=== PATIENT | male | born 1945 | race African-American/Black ===

== ENCOUNTER 2017-01-01 07:56 | Inpatient (IN) | payer MEDICARE, OTHER ==
[2017-01-01] MEDS ORDERED: KETOROLAC 60 MG/2 ML VIAL IVP STA (08:33)
--- NOTE | 2017-01-01 08:40 | ED ---
General Adult HPI - General Chief complaint: Weakness Stated complaint: SOB Time Seen by Provider: 01/01/17 08:00 Source: patient, RN notes reviewed Mode of arrival: wheelchair Limitations: no limitations - History of Present Illness Initial comments: This is a 71-year-old male who presents emergency department and is a very poor historian. Patient states he is here because of left buttocks pain which radiates down to the mid thigh. Patient states she's had this for years. Patient states he has not followed up with his primary medical care doctor for this he has not gotten MRI and is never seen a specialist for this. Patient also states he is always short of breath. Patient states this is been ongoing for many months as well. Patient states it's no different today than it is any day but he would like it checked out today while he is here. Patient denies any chest pain or pressure. Patient denies any palpitations. Patient denies any recent fever chills or cough. Patient denies any smoking history. Patient denies any lightheadedness or dizziness per patient denies headache patient denies numbness weakness. Patient denies any abdominal pain. Patient denies nausea vomiting diarrhea. Patient denies any numbness or weakness he denies any problems with urinary retention or urinary incontinence. - Related Data Home Medications Medication Instructions Recorded Confirmed Nitroglycerin Sl Tabs [Nitrostat] 0.4 mg SUBLINGUAL Q5M PRN 11/28/13 01/01/17 HYDROcodone/APAP 5-325MG [[place] 1 tab PO Q6H PRN 12/15/14 01/01/17 5-325] Allopurinol [Zyloprim] 100 mg PO DAILY 01/24/15 01/01/17 Carvedilol 25 mg PO BID 01/24/15 01/01/17 Aspirin 325 mg PO DAILY 06/07/15 01/01/17 Docusate [Colace] 100 mg PO HS 06/07/15 01/01/17 Gabapentin [Neurontin] 400 mg PO TID 05/16/16 01/01/17 Torsemide [Demadex] 50 mg PO DAILY PRN 05/16/16 01/01/17 Insulin Glargine [Lantus] 45 unit SQ QAM 01/01/17 01/01/17 Losartan [Cozaar] 50 mg PO HS 01/01/17 01/01/17 Spironolactone [Aldactone] 25 mg PO DAILY 01/01/17 01/01/17 amLODIPine [Norvasc] 5 mg PO DAILY 01/01/17 01/01/17 Previous Rx's Medication Instructions Recorded Isosorbide Mononitrate ER [Imdur] 30 mg PO DAILY #30 tab.er.24h 06/09/15 Allergies Allergy/AdvReac Type Severity Reaction Status Date / Time No Known Allergies Allergy Verified 01/01/17 08:48 Review of Systems ROS Statement: Those systems with pertinent positive or pertinent negative responses have been documented in the HPI. ROS Other: All systems not noted in ROS Statement are negative. Past Medical History Past Medical History: Chest Pain / Angina, Heart Failure, COPD, Diabetes Mellitus, Hyperlipidemia, Hypertension, Myocardial Infarction ([place]), Osteoarthritis (OA) Additional Past Medical History / Comment(s): 06/07/15 Pt presented to [facility] ER EMS feeling weak and having mild headache and anterior neck pain. Symptoms began days ago. Pt being admitted with clinical impression of weakness, acute renal failure. PT last admitted to [facility] 01/24/15 with acute DKA, acute metabolic encephalitis from DKA, acute renal failure, severe hyperkalemia, pseudohyponatremia. 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 Last Myocardial Infarction Date:: 11/2013 History of Any Multi-Drug Resistant Organisms: None Reported Past Surgical History: Heart Catheterization, Pacemaker Additional Past Surgical History / Comment(s): CATARACTS TRAY EYES REMOVED. liver biopsy on 10-18-13, heart cath 2004 Past Anesthesia/Blood Transfusion Reactions: No Reported Reaction Type of Cardiac Device: Permanent Pacemaker Device Placement Date:: UNK Past Psychological History: Bipolar, Depression Smoking Status: Never smoker Past Alcohol Use History: Occasional Past Drug Use History: None Reported - Past Family History Mother Family Medical History: Cancer Sister(s) Family Medical History: Cancer General Exam - General Exam Comments Initial Comments: GENERAL: Patient is well-developed and well-nourished. Patient is nontoxic and well- hydrated and is in mild distress. ENT: Neck is soft and supple. No significant lymphadenopathy is noted. Oropharynx is clear. Moist mucous membranes. Neck has full range of motion without eliciting any pain. EYES: The sclera were anicteric and conjunctiva were pink and moist. Extraocular movements were intact and pupils were equal round and reactive to light. Eyelids were unremarkable. PULMONARY: Unlabored respirations. Good breath sounds bilaterally. No audible rales rhonchi or wheezing was noted. CARDIOVASCULAR: There is a regular rate and rhythm without any murmurs gallops or rubs. ABDOMEN: Soft and nontender with normal bowel sounds. No palpable organomegaly was noted. There is no palpable pulsatile mass. SKIN: Skin is clear with no lesions or rashes and otherwise unremarkable. NEUROLOGIC: Patient is alert and oriented x3. Cranial nerves II through XII are grossly intact. Motor and sensory are also intact. Normal speech, volume and content. Symmetrical smile. no perineum LYMPHATICS: No significant lymphadenopathy is noted MUSCULOSKELETAL: Normal extremities with adequate strength and full range of motion. No lower extremity swelling or edema. No calf tenderness. Patient has a straight leg teis positive at 60 on the left only. Patient's perineum exam is normal. Patient has some slight tenderness in the left buttocks. Limitations: no limitations Course Vital Signs 01/01/17 01/01/17 01/01/17 08:03 08:45 10:29 Temperature 97.1 F L Pulse Rate 54 L 59 L Respiratory 18 24 20 Rate Blood Pressure 125/73 140/62 O2 Sat by Pulse 98 97 Oximetry Medical Decision Making - Medical Decision Making EKG shows a ventricular paced rhythm at 52 bpm QRS is 142 QT intervals 484 QTC is 450. Chest x-ray shows possible mild venous congestion I went into the room to reevaluate the patient he was sleeping comfortably. I spoke with Dr. Logan he agreed to admit the patient and I wrote admitting orders. - Lab Data Result diagrams: 01/01/17 09:09 01/01/17 09:09 Lab Results 01/01/17 01/01/17 01/01/17 Range/Units 09:09 09:09 09:09 WBC 6.5 (3.8-10.6) k/uL RBC 4.42 (4.30-5.90) m/uL Hgb 13.6 (13.0-17.5) gm/dL Hct 42.0 (39.0-53.0) % MCV 95.1 (80.0-100.0) fL MCH 30.7 (25.0-35.0) pg MCHC 32.3 (31.0-37.0) g/dL RDW 13.5 (11.5-15.5) % Plt Count 93 L (150-450) k/uL Neutrophils % 72 % Lymphocytes % 15 % Monocytes % 6 % Eosinophils % 4 % Basophils % 1 % Neutrophils # 4.7 (1.3-7.7) k/uL Lymphocytes # 1.0 (1.0-4.8) k/uL Monocytes # 0.4 (0-1.0) k/uL Eosinophils # 0.3 (0-0.7) k/uL Basophils # 0.0 (0-0.2) k/uL Large Platelets Present Poikilocytosis (manual Present Anisocytosis (manual) Present PT (9.0-12.0) sec INR (<1.1) APTT (22.0-30.0) sec Sodium 137 (137-145) mmol/L Potassium 4.0 (3.5-5.1) mmol/L Chloride 101 (98-107) mmol/L Carbon Dioxide 27 (22-30) mmol/L Anion Gap 9 mmol/L BUN 70 H (9-20) mg/dL Creatinine 2.20 H (0.66-1.25) mg/dL Est GFR (MDRD) Af Amer 36 (>60 ml/min/1.73 sqM) Est GFR (MDRD) Non-Af 30 (>60 ml/min/1.73 sqM) Glucose 191 H (74-99) mg/dL Calcium 8.0 L (8.4-10.2) mg/dL Magnesium 1.6 (1.6-2.3) mg/dL Total Bilirubin 1.2 (0.2-1.3) mg/dL AST 95 H (17-59) U/L ALT 106 H (21-72) U/L Alkaline Phosphatase 230 H (38-126) U/L Total Creatine Kinase 260 H (55-170) U/L CK-MB (CK-2) 3.8 H* (0.0-2.4) ng/mL CK-MB (CK-2) Rel Index 1.5 Troponin I 0.058 H* (0.000-0.034) ng/mL NT-Pro-B Natriuret Pep pg/mL Total Protein 7.1 (6.3-8.2) g/dL Albumin 2.9 L (3.5-5.0) g/dL 01/01/17 01/01/17 Range/Units 09:09 09:09 WBC (3.8-10.6) k/uL RBC (4.30-5.90) m/uL Hgb (13.0-17.5) gm/dL Hct (39.0-53.0) % MCV (80.0-100.0) fL MCH (25.0-35.0) pg MCHC (31.0-37.0) g/dL RDW (11.5-15.5) % Plt Count (150-450) k/uL Neutrophils % % Lymphocytes % % Monocytes % % Eosinophils % % Basophils % % Neutrophils # (1.3-7.7) k/uL Lymphocytes # (1.0-4.8) k/uL Monocytes # (0-1.0) k/uL Eosinophils # (0-0.7) k/uL Basophils # (0-0.2) k/uL Large Platelets Poikilocytosis (manual Anisocytosis (manual) PT 12.4 H (9.0-12.0) sec INR 1.3 (<1.1) APTT 27.0 (22.0-30.0) sec Sodium (137-145) mmol/L Potassium (3.5-5.1) mmol/L Chloride (98-107) mmol/L Carbon Dioxide (22-30) mmol/L Anion Gap mmol/L BUN (9-20) mg/dL Creatinine (0.66-1.25) mg/dL Est GFR (MDRD) Af Amer (>60 ml/min/1.73 sqM) Est GFR (MDRD) Non-Af (>60 ml/min/1.73 sqM) Glucose (74-99) mg/dL Calcium (8.4-10.2) mg/dL Magnesium (1.6-2.3) mg/dL Total Bilirubin (0.2-1.3) mg/dL AST (17-59) U/L ALT (21-72) U/L Alkaline Phosphatase (38-126) U/L Total Creatine Kinase (55-170) U/L CK-MB (CK-2) (0.0-2.4) ng/mL CK-MB (CK-2) Rel Index Troponin I (0.000-0.034) ng/mL NT-Pro-B Natriuret Pep 352 pg/mL Total Protein (6.3-8.2) g/dL Albumin (3.5-5.0) g/dL Disposition Clinical Impression: Sciatica, Acute renal failure, Dyspnea Disposition: ADMITTED IP TO THIS HOSP Referrals: Antonino Mendoza DO [Primary Care Provider] - 1-2 days Time of Disposition: 10:52
[2017-01-01 09:46] LABS: Magnesium 1.6 mg/dL (1.6-2.3); Total Bilirubin 1.2 mg/dL (0.2-1.3); Total Protein 7.1 g/dL (6.3-8.2)
[2017-01-01 09:47] LABS: INR 1.3 (<1.1); Prothrombin Time 12.4 sec (9.0-12.0)
[2017-01-01 10:01] LABS: Basophils % (A) 1 %; CH 31.1; CHCM 32.9; Eosinophils # (A) 0.3 k/uL (0-0.7); Eosinophils % (A) 4 %; HDW 2.14; HGB 13.6 gm/dL (13.0-17.5); Large Platelets Flag Marked; Luc # (Auto) 0.15; Luc % (Auto) 2; Lymphocytes % (A) 15 %; MCH 30.7 pg (25.0-35.0); MCHC 32.3 g/dL (31.0-37.0); MCV 95.1 fL (80.0-100.0); Mean Platelet Volume 11.9; Monocytes # (A) 0.4 k/uL (0-1.0); Monocytes % (A) 6 %; Neutrophils # (A) 4.7 k/uL (1.3-7.7); Neutrophils % (A) 72 %; RBC 4.42 m/uL (4.30-5.90); RDW 13.5 % (11.5-15.5); WBC 6.5 k/uL (3.8-10.6); WBC (Perox) 6.02
--- NOTE | 2017-01-01 10:10 | XR ---
EXAMINATION TYPE: XR chest 2V DATE OF EXAM: 01/01/2017 COMPARISON: Chest x-ray May 16, 2016 HISTORY: Difficulty in breathing. TECHNIQUE: Frontal and lateral views of the chest are obtained. FINDINGS: There is no focal air space opacity, pleural effusion, or pneumothorax seen. The cardiac silhouette size is enlarged with multilead pacemaker/AICD. There is perhaps mild central vascular con gestion though this is less prominent than prior. The osseous structures are somewhat demineralized. IMPRESSION: Cardiomegaly with perhaps mild central vascular congestion, correlate for CHF exacerbati on though there is improvement from prior chest x-ray noted.
[2017-01-01 10:27] LABS: Creatine Kinase MB 3.8 ng/mL (0.0-2.4); Troponin I 0.058 ng/mL (0.000-0.034)
[2017-01-01 10:39] LABS: Large Platelets Present
[2017-01-01] MEDS ORDERED: SODIUM CHLORIDE 0.9% 1,000 ML IV ONE (10:53)
[2017-01-01] MEDS: SODIUM CHLORIDE 0.9% 1,000 ML IV SCH (11:36)
--- NOTE | 2017-01-01 11:38 | P.NPCON ---
History of Present Illness - Reason for Consult acute renal failure - History of Present Illness Reason for consultation: Acute kidney injury History of present illness: Patient is a 71-year-old male seen in renal consultation for acute kidney injury. His baseline creatinine from March 2016 was near 1. It is elevated at 2.2 this admission. Patient presented to the hospital with buttock pain which is constant and achy in nature with radiation down to his leg. Patient also admits to dyspnea which she states is chronic in nature and not any worse than his baseline. I do note that he was taking Demadex as well as Aldactone at home. He did receive a dose of Toradol in the ER. He admits to good urine output. No hematuria or dysuria. Does admit to incontinence. No vomiting or diarrhea. Oral intake has been fair. Denies chest pain. Denies use of NSAIDs at home. Denies any family history of renal disease. Hemodynamically he stable. Denies any fever or chills. No headache dizziness or syncopal episodes. Vital signs are stable. General: The patient appeared well nourished and normally developed. HEENT: Head exam is unremarkable. Neck is without jugular venous distension. LUNGS: Lungs are clear to auscultation and percussion. Breath sounds decreased. HEART: Rate and Rhythm are regular. First and second heart sounds normal. No murmurs, rubs or gallops. ABDOMEN: Abdominal exam reveals normal bowel sounds. Non-tender and non- distended. No evidence of peritonitis. EXTREMITITES: No clubbing, cyanosis, or edema. Past Medical History Past Medical History: Chest Pain / Angina, Heart Failure, COPD, Diabetes Mellitus, Hyperlipidemia, Hypertension, Myocardial Infarction ([place]), Osteoarthritis (OA) Additional Past Medical History / Comment(s): 06/07/15 Pt presented to [facility] ER EMS feeling weak and having mild headache and anterior neck pain. Symptoms began days ago. Pt being admitted with clinical impression of weakness, acute renal failure. PT last admitted to [facility] 01/24/15 with acute DKA, acute metabolic encephalitis from DKA, acute renal failure, severe hyperkalemia, pseudohyponatremia. 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 Last Myocardial Infarction Date:: 11/2013 History of Any Multi-Drug Resistant Organisms: None Reported Past Surgical History: Heart Catheterization, Pacemaker Additional Past Surgical History / Comment(s): CATARACTS TRAY EYES REMOVED. liver biopsy on 10-18-13, heart cath 2004 Past Anesthesia/Blood Transfusion Reactions: No Reported Reaction Type of Cardiac Device: Permanent Pacemaker Device Placement Date:: UN Past Psychological History: Bipolar, Depression Smoking Status: Never smoker Past Alcohol Use History: Occasional Past Drug Use History: None Reported - Past Family History Mother Family Medical History: Cancer Sister(s) Family Medical History: Cancer Medications and Allergies Home Medications Medication Instructions Recorded Confirmed Type Nitroglycerin Sl Tabs [Nitrostat] 0.4 mg SUBLINGUAL Q5M PRN 11/28/13 01/01/17 History HYDROcodone/APAP 5-325MG [[place] 1 tab PO Q6H PRN 12/15/14 01/01/17 History 5-325] Allopurinol [Zyloprim] 100 mg PO DAILY 01/24/15 01/01/17 History Carvedilol 25 mg PO BID 01/24/15 01/01/17 History Aspirin 325 mg PO DAILY 06/07/15 01/01/17 History Docusate [Colace] 100 mg PO HS 06/07/15 01/01/17 History Gabapentin [Neurontin] 400 mg PO TID 05/16/16 01/01/17 History Torsemide [Demadex] 50 mg PO DAILY PRN 05/16/16 01/01/17 History Insulin Glargine [Lantus] 45 unit SQ QAM 01/01/17 01/01/17 History Losartan [Cozaar] 50 mg PO HS 01/01/17 01/01/17 History Spironolactone [Aldactone] 25 mg PO DAILY 01/01/17 01/01/17 History amLODIPine [Norvasc] 5 mg PO DAILY 01/01/17 01/01/17 History Allergies Allergy/AdvReac Type Severity Reaction Status Date / Time No Known Allergies Allergy Verified 01/01/17 08:48 Physical Exam Vitals: Vital Signs Temp Pulse Resp BP Pulse Ox 01/01/17 10:29 59 L 20 140/62 97 01/01/17 08:45 24 01/01/17 08:03 97.1 F L 54 L 18 125/73 98 Intake and Output 12/31/16 01/01/17 01/01/17 22:59 06:59 14:59 Other: Weight 99.79 kg Patient Weight 01/02/17 06:59 Weight 99.79 kg Results - Lab Results Most recent lab results Calcium 8.0 mg/dL (8.4-10.2) L 01/01/17 09:09 Magnesium 1.6 mg/dL (1.6-2.3) 01/01/17 09:09 01/01/17 09:09 01/01/17 09:09 Assessment and Plan Plan: Saleh: #1. Nonoliguric acute kidney injury mostly prerenal in nature secondary to diuretics and use of ARB. He should also received a dose of Toradol in the ER. Baseline creatinine is near 1 from March 2016 and is up to 2.2 this admission. #2. Buttock pain with radiation down to his leg possibly due to sciatica. Plan: Start normal saline to be run at 60 mL an hour. Avoid nephrotoxic agents and hypotensive episodes. Check urinalysis. Check renal ultrasound. Repeat electrolytes in the morning. Thank you for the consultation. I will continue to follow the patient with you during his hospital stay.
[2017-01-01 12:02] LABS: Appearance,Urine Clear (Clear); Bilirubin,Urine Negative (Negative); Glucose,Urine (UA) Negative (Negative); Ketones,Urine Negative (Negative); Leukocyte Esterase,Urine Negative (Negative); Nitrite,Urine Negative (Negative); Protein,Urine Negative (Negative); Specific Gravity,Urine 1.007 (1.001-1.035); UA Billing (MACRO vs. MICRO) CHEM; Urobilinogen,Urine <2.0 mg/dL (<2.0)
[2017-01-01 12:28] LABS: Glucose,Whole Blood 117 mg/dL (75-99)
--- NOTE | 2017-01-01 15:07 | US ---
EXAMINATION TYPE: US kidneys/renal and bladder DATE OF EXAM: 01/01/2017 COMPARISON: NONE CLINICAL HISTORY: [email or web address]. EXAM MEASUREMENTS: Right Kidney: 11.2 x 5.3 x 5.2 cm Left Kidney: 11.1 x 5.0 x 5.4 cm Right Kidney: No hydronephrosis or masses seen Left Kidney: No hydronephrosis or masses seen Bladder: wnl Ureteral jets are not identified. IMPRESSION: 1. Normal retroperitoneal ultrasound.
[2017-01-01] MEDS ORDERED: HYDROcodone/APAP 5-325MG 1 EACH TAB PO PRN (15:12)
[2017-01-01] MEDS ORDERED: NITROGLYCERIN SL TABS 0.4 MG TAB SUBLINGUAL PRN (15:12)
[2017-01-01] MEDS ORDERED: IPRATROPIUM-ALBUTEROL 3 ML NEB INHALATION PRN (15:14)
[2017-01-01] MEDS ORDERED: MELATONIN 5 MG TABLET PO PRN (15:15)
[2017-01-01] MEDS: IPRATROPIUM-ALBUTEROL 3 ML NEB INHALATION SCH ×2 (15:56→20:03)
[2017-01-01 17:01] LABS: Glucose,Whole Blood 194 mg/dL (75-99)
[2017-01-01] MEDS: CARVEDILOL 12.5 MG TAB PO SCH (17:45)
[2017-01-01] MEDS: GABAPENTIN 400 MG CAP PO SCH ×2 (17:45→21:20)
[2017-01-01] MEDS: INSULIN LISPRO (humaLOG) 300 UNIT/3 ML VIAL SQ SCH ×2 (17:49→21:24)
[2017-01-01 18:54] LABS: Hemoglobin A1C 9.7 % (4.2-6.1)
[2017-01-01 21:02] LABS: Glucose,Whole Blood 245 mg/dL (75-99)
[2017-01-01] MEDS: DOCUSATE 100 MG CAP PO SCH ×2 (21:20→21:23)
[2017-01-02] MEDS: SODIUM CHLORIDE 0.9% 1,000 ML IV SCH ×2 (05:54→21:17)
[2017-01-02 05:59] LABS: Glucose,Whole Blood 148 mg/dL (75-99)
[2017-01-02] MEDS: GABAPENTIN 400 MG CAP PO SCH ×3 (06:41→21:17)
[2017-01-02] MEDS: CARVEDILOL 12.5 MG TAB PO SCH ×2 (06:42→17:18)
[2017-01-02] MEDS: INSULIN LISPRO (humaLOG) 300 UNIT/3 ML VIAL SQ SCH ×4 (06:44→21:18)
[2017-01-02 06:51] LABS: Basophils % (A) 1 %; CH 30.4; Eosinophils # (A) 0.3 k/uL (0-0.7); Eosinophils % (A) 5 %; HCT 38.9 % (39.0-53.0); HDW 2.16; HGB 12.9 gm/dL (13.0-17.5); Large Platelets Flag Moderate; Luc % (Auto) 4; Lymphocytes # (A) 1.6 k/uL (1.0-4.8); Lymphocytes % (A) 32 %; MCH 31.6 pg (25.0-35.0); MCHC 33.1 g/dL (31.0-37.0); MCV 95.5 fL (80.0-100.0); Mean Platelet Volume 11.1; Monocytes # (A) 0.4 k/uL (0-1.0); Monocytes % (A) 8 %; Neutrophils # (A) 2.6 k/uL (1.3-7.7); Neutrophils % (A) 51 %; RBC 4.07 m/uL (4.30-5.90); RDW 13.3 % (11.5-15.5); WBC 5.1 k/uL (3.8-10.6); WBC (Perox) 5.26
[2017-01-02 07:01] LABS: Calcium 8.1 mg/dL (8.4-10.2); Potassium 4.2 mmol/L (3.5-5.1)
[2017-01-02] MEDS: IPRATROPIUM-ALBUTEROL 3 ML NEB INHALATION SCH ×4 (08:38→20:33)
[2017-01-02] MEDS: amLODIPine 5 MG TAB PO SCH (09:10)
[2017-01-02] MEDS: ISOSORBIDE MONONITRATE ER 30 MG TAB.ER.24H PO SCH (09:10)
[2017-01-02] MEDS: INSULIN GLARGINE 100 UNIT/ML 10 ML VIAL SQ SCH (09:10)
[2017-01-02] MEDS: ASPIRIN 325 MG TAB PO SCH (09:10)
--- NOTE | 2017-01-02 10:23 | HP ---
DATE OF ADMISSION: DATE OF SERVICE: 01/01/2017 CHIEF COMPLAINT: Weakness, back pain and as well as renal failure. HISTORY OF PRESENT ILLNESS: This 71-year-old gentleman with a past medical history of multiple medical problems including history of CHF, COPD, diabetes mellitus, hypertension, hyperlipidemia, history of DJD, being followed by Dr. Antonino Mendoza and as well as Dr. Aislinn Burgess in the outpatient setting was admitted with significant weakness. The patient had multiple episodes of diabetic ketoacidosis. The patient also had ejection fraction of 20% with chronic systolic dysfunction, history of gout as well. Currently, the patient is complaining of back pain which radiated to the back, which is also is also aggravated by walking and being relieved by sitting or lying on the bed. The patient was apparently being evaluated previously. There is history of any fever, rigors. No history of headache, loss of consciousness or seizures. PAST MEDICAL HISTORY: History of CHF, history of COPD, diabetes mellitus, hypertension, hyperlipidemia, history of DJD, history of cardiac catheterization, history of pacemaker, history of bipolar, depression. Medications prior to admission include home medications are: 1. Aldactone 25 mg p.o. daily. 2. Cozaar 50 mg q.h.s. 3. Lantus 45 units subcu q.a.m. 4. Norvasc 5 mg p.o. daily. 5. Demadex 50 mg daily p.r.n. 6. Nitrostat 0.4 sublingual p.r.n. 7. Imdur 30 mg daily. 8. [place] 1 tablet 5 mg q.6 p.r.n. 9. Neurontin 400 mg p.o. t.i.d. 10. Colace 100 mg p.o. q.h.s. 11. Coreg 25 mg p.o. b.i.d. 12. Aspirin 325 mg daily. 13. Zyloprim 100 mg p.o. daily. ALLERGIES: None. FAMILY HISTORY: History of cancer in the family. SOCIAL HISTORY: No history of smoking. No history of alcohol intake. REVIEW OF SYSTEMS: ENT: No diminishing hearing or diminished vision. CARDIOVASCULAR SYSTEM: No angina. RESPIRATORY SYSTEM: No cough or hemoptysis. GI: No nausea. : No dysuria. NERVOUS SYSTEM: No numbness or weakness. ALLERGY/IMMUNOLOGY: No history of asthma. MUSCULOSKELETAL: As mentioned earlier. HEMATOLOGY/ONCOLOGY: No history of anemia. ENDOCRINE: ntd. CONSTITUTIONAL: As mentioned earlier. DERMATOLOGY: Negative. RHEUMATOLOGY: Negative. PSYCHIATRY: As mentioned earlier. PHYSICAL EXAMINATION: Patient is alert and oriented x3. Pulse is 54, blood pressure 94/59, respirations 18, temperature 97.3, pulse ox 98% on 2 L. HEENT: Conjunctivae normal. NECK: No jugular venous distention. CARDIOVASCULAR: S1 and S2, muffled. RESPIRATORY: Breath sounds diminished at the bases. Bilateral scattered rhonchi and crackles. ABDOMEN: Soft, obese, nontender. No mass palpable. LEGS: No edema, no swelling. NERVOUS SYSTEM: Higher function as mentioned. Moves all 4 limbs. No focal motor or sensory deficits. LYMPHATICS: No lymphadenopathy of neck, axillae or groin. EXAMINATION OF THE BACK: tenderness appreciated. LABS: WBC 6.5, hemoglobin 13. 6, platelets 93. INR 1.3. Creatinine is 2.20. Hemoglobin A1c 9.7, AST is 95, ALT is 106, alk phos 230. CK MB 3.8 and troponin 0.058. Albumin is 2.9. ASSESSMENT: 1. Acute renal failure with some prerenal factors and dehydration, acute tubular necrosis. 2. Back pain, possible degenerative joint disease. 3. Elevated AST, ALT, possible acute hepatitis, rule out chronic liver disease. 4. Hypoalbuminemia with mild to moderate chronic protein calorie malnutrition. 5. Increased random blood sugar and diabetes mellitus type 2 uncontrolled. 6. Thrombocytopenia, chronic. 7. History of renal failure. 8. History of gout. 9. History of congestive heart failure with chronic systolic dysfunction with ejection fraction 20% to 25%. 10. History of hypertension. 11. History of diabetic ketoacidosis. 12. History of metabolic encephalopathy. 13. History of hepatitis C. 14. History of peripheral neuropathy. 15. History of pacemaker. 16. FULL CODE. RECOMMENDATIONS AND DISCUSSION: This 71-year-old gentleman who presented with multiple complex medical issues, we will monitor the patient closely. Continue the current medications. Gentle hydration. Patient with multiple complex medical issues as mentioned earlier. The patient also possibly has chronic liver disease as well with some acute component. I will follow the patient closely. Recommend also CAT scan of the abdomen and pelvis to rule out the possibility of any pelvic pathology as the reason for the severe back pain the patient is complaining of, which is severe debilitating back pain the patient is complaining. Prognosis guarded. Further recommendations to follow. See orders for further details. MTDD
[2017-01-02 10:34] VITALS: BMI 33.5
[2017-01-02 12:27] LABS: Glucose,Whole Blood 422 mg/dL (75-99)
[2017-01-02 12:27] LABS: Glucose,Whole Blood 482 mg/dL (75-99)
--- NOTE | 2017-01-02 12:37 | P.PN ---
Subjective She does seen in follow-up for acute kidney injury. His baseline creatinine from March 2016 was 1 and elevated at 2.200 admission. He is maintained on IV fluids and creatinine is down to 1.8 today. Diuretics are held. His dyspnea is at baseline. No vomiting or diarrhea. Currently having lunch. No issues with urination. Vital signs are stable. General: The patient appeared well nourished and normally developed. HEENT: Head exam is unremarkable. Neck is without jugular venous distension. LUNGS: Lungs are clear to auscultation and percussion. Breath sounds decreased. HEART: Rate and Rhythm are regular. First and second heart sounds normal. No murmurs, rubs or gallops. ABDOMEN: Abdominal exam reveals normal bowel sounds. Non-tender and non- distended. No evidence of peritonitis. EXTREMITITES: No clubbing, cyanosis, or edema. Objective - Vital Signs Vital signs: Vital Signs Temp 97.1 F L 01/02/17 08:00 Pulse 72 01/02/17 12:18 Resp 18 01/02/17 11:24 BP 133/77 01/02/17 08:00 Pulse Ox 100 01/02/17 08:00 Intake & Output 01/01/17 01/02/17 01/02/17 18:59 06:59 18:59 Intake Total 360 500 Balance 360 500 Weight 98.4 kg 97.2 kg 97.2 kg Intake: Intake, IV Titration 500 Amount Sodium Chloride 0.9% 1, 500 000 ml @ 60 mls/hr IV . [id number] [facility] Rx#:[id number] Oral 360 Other: Voiding Method Toilet Urinal # Voids 1 # Bowel Movements 1 - Labs CBC & Chem 7: 01/02/17 05:53 01/02/17 05:53 Labs: Abnormal Lab Results - Last 24 Hours (Table) 01/01/17 01/01/17 01/01/17 Range/Units 09:09 16:55 21:01 RBC (4.30-5.90) m/uL Hgb (13.0-17.5) gm/dL Hct (39.0-53.0) % Plt Count (150-450) k/uL Sodium (137-145) mmol/L BUN (9-20) mg/dL Creatinine (0.66-1.25) mg/dL Glucose (74-99) mg/dL POC Glucose (mg/dL) 194 H 245 H (75-99) mg/dL Hemoglobin A1c 9.7 H (4.2-6.1) % Calcium (8.4-10.2) mg/dL 01/02/17 01/02/17 01/02/17 Range/Units 05:53 05:53 05:58 RBC 4.07 L (4.30-5.90) m/uL Hgb 12.9 L (13.0-17.5) gm/dL Hct 38.9 L (39.0-53.0) % Plt Count 82 L (150-450) k/uL Sodium 134 L (137-145) mmol/L BUN 69 H (9-20) mg/dL Creatinine 1.83 H (0.66-1.25) mg/dL Glucose 149 H (74-99) mg/dL POC Glucose (mg/dL) 148 H (75-99) mg/dL Hemoglobin A1c (4.2-6.1) % Calcium 8.1 L (8.4-10.2) mg/dL 01/02/17 01/02/17 Range/Units 11:36 11:38 RBC (4.30-5.90) m/uL Hgb (13.0-17.5) gm/dL Hct (39.0-53.0) % Plt Count (150-450) k/uL Sodium (137-145) mmol/L BUN (9-20) mg/dL Creatinine (0.66-1.25) mg/dL Glucose (74-99) mg/dL POC Glucose (mg/dL) 422 H 482 H (75-99) mg/dL Hemoglobin A1c (4.2-6.1) % Calcium (8.4-10.2) mg/dL Assessment and Plan Plan: Saleh: #1. Nonoliguric acute kidney injury mostly prerenal in nature secondary to diuretics and use of ARB. He also received a dose of Toradol in the ER. Baseline creatinine is near 1 from March 2016 and was up to 2.2 this admission. Improving with IV hydration. Down to 1.8 today. Calluses noted to be benign. No evidence of hydronephrosis on renal ultrasound. #2. Buttock pain with radiation down to his leg possibly due to sciatica. CT scan pending. Plan: Continue normal saline to be run at 60 mL an hour. Encourage oral intake. Avoid nephrotoxic agents and hypotensive episodes. Repeat electrolytes in the morning.
[2017-01-02 12:49] LABS: Total Bilirubin 1.2 mg/dL (0.2-1.3); Total Protein 6.4 g/dL (6.3-8.2)
[2017-01-02] MEDS: ALLOPURINOL 100 MG TAB PO SCH (13:12)
[2017-01-02] MEDS: IOHEXOL 350 MG/ML 25 ML BOTTLE (ORAL USE) PO PRN ×2 (13:12→14:24)
--- NOTE | 2017-01-02 15:55 | CT ---
EXAMINATION TYPE: CT abdomen pelvis wo con DATE OF EXAM: 01/02/2017 COMPARISON: 12/26/2014 INDICATION: Pelvic pain. DLP: 1061 mGycm, Automated exposure control for dose reduction was used. CONTRAST: mL of . Study performed with Oral Contrast TECHNIQUE: Axial images were obtained from above the diaphragm to the pubic rami in the axial plane a t 5 mm thick sections. Reconstructed images are reviewed on the computer in the coronal plane. FINDINGS: Limited CT sections are obtained the lung bases. The lung bases are clear. Minimal reflux or residu al within the esophagus may be present. CT ABDOMEN: Liver: Normal Spleen: Normal Pancreas: Normal Adrenal glands: The adrenal glands are normal. Gallbladder: Normal Kidneys: No masses are evident. No hydronephrosis is present. No cysts are present. Delayed images were obtained through the kidneys, which remain unremarkable. Aorta: Normal Inferior vena cava: Normal. CT PELVIS: Loops of bowel within the abdomen and pelvis are normal. There are loops of bowel which are incom pletely distended or lack oral contrast limiting their evaluation. Appendix: Normal as visualized. Urinary bladder: Decompressed with limited evaluation. Genitourinary structures: Prostate appears normal Osseous structures: No suspicious lytic or sclerotic lesions. Facet degenerative changes are present. IMPRESSIONS: 1. No suspicious acute changes abdomen and pelvis CT
[2017-01-02 17:32] LABS: Glucose,Whole Blood 168 mg/dL (75-99)
[2017-01-02 21:14] LABS: Glucose,Whole Blood 175 mg/dL (75-99)
[2017-01-02] MEDS: DOCUSATE 100 MG CAP PO SCH (21:17)
[2017-01-03] MEDS: IPRATROPIUM-ALBUTEROL 3 ML NEB INHALATION SCH ×2 (07:04→11:26)
[2017-01-03 07:25] LABS: Glucose,Whole Blood 116 mg/dL (75-99)
[2017-01-03] MEDS: INSULIN LISPRO (humaLOG) 300 UNIT/3 ML VIAL SQ SCH ×2 (07:46→12:22)
[2017-01-03] MEDS: CARVEDILOL 12.5 MG TAB PO SCH (08:15)
[2017-01-03 09:25] LABS: Basophils % (A) 0 %; CH 30.2; CHCM 32.4; Eosinophils # (A) 0.3 k/uL (0-0.7); Eosinophils % (A) 6 %; HCT 36.9 % (39.0-53.0); HDW 2.25; HGB 12.7 gm/dL (13.0-17.5); Large Platelets Flag Slight; Luc # (Auto) 0.15; Luc % (Auto) 3; Lymphocytes # (A) 1.3 k/uL (1.0-4.8); Lymphocytes % (A) 29 %; MCH 32.1 pg (25.0-35.0); MCHC 34.3 g/dL (31.0-37.0); MCV 93.6 fL (80.0-100.0); Monocytes # (A) 0.4 k/uL (0-1.0); Monocytes % (A) 8 %; Neutrophils # (A) 2.5 k/uL (1.3-7.7); Neutrophils % (A) 54 %; RBC 3.94 m/uL (4.30-5.90); RDW 13.4 % (11.5-15.5); WBC 4.6 k/uL (3.8-10.6); WBC (Perox) 5.15
--- NOTE | 2017-01-03 09:27 | PN ---
DATE OF SERVICE: 01/02/2017 This 71-year-old gentleman who was admitted with back pain and acute renal failure with prerenal factors, dehydration, acute tubular necrosis, is being closely monitored. The patient also had an abdominal pelvic CAT scan did not show acute abnormalities. Patient also had elevated LFTs. PAST MEDICAL HISTORY: Reviewed. REVIEW OF SYSTEMS: CARDIOVASCULAR: No angina. RESPIRATORY: As mentioned earlier. GI: As mentioned earlier. : No dysuria. NERVOUS SYSTEM: No numbness or weakness. Current medications are reviewed and include: 1. Dike 5 mg p.o. q.6. 2. DuoNeb q.i.d. and p.r.n. 3. Zyloprim 100 mg daily. 4. Norvasc 5 mg daily. 5. Aspirin 325 mg daily. 6. Coreg 25 mg p.o. b.i.d. 7. Colace 100 mg p.o. q.h.s. 8. Neurontin. 9. Lantus. 10. Omnipaque. 11. Imdur. 12. Melatonin. 13. Nitrostat. PHYSICAL EXAMINATION: The patient is alert and oriented x3. Pulse is 58, blood pressure 112/61, respirations 14, temperature 97.1, pulse ox 100% on 2 L. HEENT: Conjunctivae normal. NECK: No jugular venous distention. CARDIOVASCULAR: S1 and S2, muffled. RESPIRATORY: Breath sounds diminished at the bases. A few scattered rhonchi, no crackles. ABDOMEN: Soft, obese, nontender. LEGS: No edema, no swelling. NERVOUS SYSTEM: No focal deficits. LABS: Creatinine 1.83. Creatinine is improved. AST is 65 and ALT 78, which is also improving. ASSESSMENT: 1. Acute renal failure with some prerenal factors and dehydration with acute tubular necrosis. 2. Back pain, possible degenerative joint disease. 3. Hepatitis secondary to chronic hepatitis C. 4. Elevated AST, ALT and acute hepatitis, rule out chronic liver disease. 5. Hypoalbuminemia with mild to moderate protein calorie malnutrition. 6. Increased random blood sugar and diabetes mellitus type 2, uncontrolled. 7. Thrombocytopenia, chronic. 8. History of renal failure. 9. History of gout. 10. History of congestive heart failure with chronic systolic dysfunction, ejection fraction 20% to 25%. 11. History of hypertension, essential. 12. History of diabetic ketoacidosis. 13. History of metabolic encephalopathy. 14. History of hepatitis C. 15. History of peripheral neuropathy. 16. History of pacemaker. 17. FULL CODE. RECOMMENDATIONS AND DISCUSSION: In this 71-year-old gentleman who presented with multiple complex medical issues, we will monitor the patient closely. Continue the current medications. Continue symptomatic treatment. Otherwise, at this time I recommend repeat labs. Monitor creatinine closely. Prognosis guarded because of multiple complex medical issues and further recommendations to follow. See orders for details.
[2017-01-03] MEDS: INSULIN GLARGINE 100 UNIT/ML 10 ML VIAL SQ SCH ×3 (09:45→12:22)
[2017-01-03] MEDS: ASPIRIN 325 MG TAB PO SCH (10:35)
[2017-01-03] MEDS: GABAPENTIN 400 MG CAP PO SCH ×2 (10:35→15:50)
[2017-01-03] MEDS: amLODIPine 5 MG TAB PO SCH (10:35)
[2017-01-03] MEDS: ALLOPURINOL 100 MG TAB PO SCH (10:35)
[2017-01-03] MEDS: ISOSORBIDE MONONITRATE ER 30 MG TAB.ER.24H PO SCH (10:36)
[2017-01-03 10:47] LABS: Calcium 9.1 mg/dL (8.4-10.2); Potassium 5.2 mmol/L (3.5-5.1); Total Protein 6.5 g/dL (6.3-8.2)
[2017-01-03 11:44] LABS: Glucose,Whole Blood 235 mg/dL (75-99)
--- NOTE | 2017-01-03 12:32 | XR ---
EXAMINATION TYPE: XR chest 1V portable DATE OF EXAM: 01/03/2017 COMPARISON: 01/01/2017 HISTORY: Shortness of breath TECHNIQUE: Single frontal view of the chest is obtained. FINDINGS: Hyperinflation noted. There is mild cardiomegaly and cardiac device. Subsegmental changes at the left lung base. Correlate for COPD IMPRESSION: 1. Technically Limited exam demonstrates bibasilar subsegmental elevations. Correlate for atelectasis versus early infiltrate. 2. Correlate for COPD and cardiomegaly.
[2017-01-03 15:26] VITALS: BP 123/63; PULSE 56; RESP 20; TEMP 97
[2017-01-03] MEDS: SODIUM CHLORIDE 0.9% 1,000 ML IV SCH (15:49)
--- NOTE | 2017-01-04 13:11 | DS ---
DATE OF ADMISSION: 01/02/2017 DATE OF DISCHARGE: 01/03/2017 FINAL DIAGNOSES: 1. Acute renal failure with prerenal factors with dehydration with acute tubular necrosis. 2. Back pain, possible degenerative joint disease. 3. Hepatitis secondary to chronic hepatitis C. 4. Elevated AST, ALT from chronic hepatitis C. 5. Hypoalbuminemia with mild to moderate protein calorie malnutrition. 6. Increased random blood sugar, diabetes mellitus type 2 uncontrolled. 7. Thrombocytopenia, chronic. 8. History of renal failure. 9. History of gout. 10. History of congestive heart failure with chronic systolic dysfunction, ejection fraction 25%. 11. History of hypertension, essential. 12. History of diabetic ketoacidosis. 13. Metabolic encephalopathy. 14. History of hepatitis C. 15. History of peripheral neuropathy. 16. History of pacemaker. 17. FULL CODE. DISCHARGE DISPOSITION: The patient will be discharged in stable condition with guarded prognosis. Total time taken is 35 minutes. HISTORY OF PRESENT ILLNESS: This 71-year-old gentleman with a past history medical history of multiple medical problems admitted with back pain and multiple other medical problems. Otherwise, the patient was treated symptomatically. CT scan of the abdomen was negative. The patient seen by nephrology. The chest x-ray had significant improvement. The creatinine did improve to 1.5 at this time and from the admission value of 2.2. On exam, vitals stable. CARDIOVASCULAR SYSTEM: S1, S2. ABDOMEN: Soft. NERVOUS SYSTEM: No focal deficits. DISCHARGE ADVICE: 1. Diet id cardiac. 2. Activity is limited until follow up. 3. Follow up with Dr. Mendoza in 2 to 3 days. 4. Follow with Dr. Dumont as advised. Medications will be as recommended: 1. Zyloprim 100 mg p.o. daily. 2. Norvasc 5 mg p.o. daily. 3. Aspirin 325 mg daily. 4. Coreg 25 mg p.o. b.i.d. 5. Colace 100 mg q.h.s. 6. Neurontin 400 mg t.i.d. 7. Hydrocodone 5 mg q.6. 8. Lantus 45 units subcu in the morning. 9. Imdur ER 30 mg p.o. daily. 10. Nitrostat 0.4 sublingual p.r.n. Once again, the patient is discharged in stable condition with guarded prognosis.
== END 2017-01-03 16:16 | disposition home health service (06) | DRG 682 ==
LOC: EC 07:56 → 6SEL 10:53 → INTOOBSV 10:53 → 6SEL 20:01 → OBSVTOIN 01-02 14:21 → 4MS4W 01-02 17:05
PROVIDERS: ADMIT Hospitalist; ATTEND Hospitalist
DX: N17.0 Acute kidney failure with tubular necrosis (principal); G93.41 Metabolic encephalopathy; E44.0 Moderate protein-calorie malnutrition; I50.22 Chronic systolic (congestive) heart failure; R06.00 Dyspnea, unspecified; I11.0 Hypertensive heart disease with heart failure; E11.65 Type 2 diabetes mellitus with hyperglycemia; D69.6 Thrombocytopenia, unspecified; E11.42 Type 2 diabetes mellitus with diabetic polyneuropathy; J44.9 Chronic obstructive pulmonary disease, unspecified; B18.2 Chronic viral hepatitis C; E86.0 Dehydration; E78.5 Hyperlipidemia, unspecified; I25.2 Old myocardial infarction; M10.9 Gout, unspecified; M54.30 Sciatica, unspecified side; R32 Unspecified urinary incontinence; F32.9 Major depressive disorder, single episode, unspecified; M19.90 Unspecified osteoarthritis, unspecified site; M51.36 Other intervertebral disc degeneration, lumbar region; R01.1 Cardiac murmur, unspecified; Z79.4 Long term (current) use of insulin; Z79.82 Long term (current) use of aspirin; Z79.899 Other long term (current) drug therapy; Z95.0 Presence of cardiac pacemaker; Z68.33 Body mass index [BMI] 33.0-33.9, adult
CPT/HCPCS: 36415; 71010; 71020; 74176; 76770; 80053; 81003; 82550; 82553; 83036; 83735; 83880; 84484; 85025; 85610; 85730; 93005; 94640; 96374; 99285

== ENCOUNTER 2017-09-13 05:28 | Inpatient (IN) | payer MEDICARE, OTHER ==
--- NOTE | 2017-09-13 05:43 | ED ---
Abdominal Pain HPI - General Source: family, EMS, RN notes reviewed Mode of arrival: EMS Limitations: no limitations <Walker Leos - Last Filed: 09/13/17 06:54> <Walker Henry - Last Filed: 09/13/17 09:33> - General Chief Complaint: Abdominal Pain Stated Complaint: Chest Pain Time Seen by Provider: 09/13/17 05:30 - History of Present Illness Initial Comments: This is a 72-year-old male with past medical history significant for kidney failure diabetes hypertension high cholesterol and high cholesterol. Patient states about 5 hours ago started having mid abdominal pain. Patient states it is been constant since then. Patient denies any nausea vomiting or diarrhea. Patient denies any fever chills. Patient states his abdomen is not distended is normally is but easily is currently. Patient denies any chest pain difficulty breathing or shortness of breath. Patient denies any recent fever chills or cough. Patient denies any palpitations. Patient denies any headache patient denies numbness weakness. Patient denies any injury or trauma recently. Patient denies any lightheadedness dizziness or near syncopal episode. (Walker Leos) - Related Data Home Medications Medication Instructions Recorded Confirmed Nitroglycerin Sl Tabs [Nitrostat] 0.4 mg SUBLINGUAL Q5M PRN 11/28/13 09/13/17 HYDROcodone/APAP 5-325MG [[place] 1 tab PO Q6H PRN 12/15/14 09/13/17 5-325] Allopurinol [Zyloprim] 100 mg PO DAILY 01/24/15 09/13/17 Carvedilol 25 mg PO BID 01/24/15 09/13/17 Aspirin 325 mg PO DAILY 06/07/15 09/13/17 Docusate [Colace] 100 mg PO HS 06/07/15 09/13/17 Gabapentin [Neurontin] 400 mg PO TID 05/16/16 09/13/17 Insulin Glargine [Lantus] 45 unit SQ QAM 01/01/17 09/13/17 amLODIPine [Norvasc] 5 mg PO DAILY 01/01/17 09/13/17 Previous Rx's Medication Instructions Recorded Isosorbide Mononitrate ER [Imdur] 30 mg PO DAILY #30 tab.er.24h 06/09/15 Allergies Allergy/AdvReac Type Severity Reaction Status Date / Time No Known Allergies Allergy Verified 09/13/17 05:36 Review of Systems ROS Other: All systems not noted in ROS Statement are negative. <Walker Leos - Last Filed: 09/13/17 06:54> ROS Other: All systems not noted in ROS Statement are negative. <Walker Henry - Last Filed: 09/13/17 09:33> ROS Statement: Those systems with pertinent positive or pertinent negative responses have been documented in the HPI. Past Medical History Past Medical History: Chest Pain / Angina, Heart Failure, COPD, Diabetes Mellitus, Hyperlipidemia, Hypertension, Myocardial Infarction ([place]), Osteoarthritis (OA) Additional Past Medical History / Comment(s): 06/07/15 Pt presented to [facility] ER EMS feeling weak and having mild headache and anterior neck pain. Symptoms began days ago. Pt being admitted with clinical impression of weakness, acute renal failure. PT last admitted to [facility] 01/24/15 with acute DKA, acute metabolic encephalitis from DKA, acute renal failure, severe hyperkalemia, pseudohyponatremia. 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 Last Myocardial Infarction Date:: 11/2013 History of Any Multi-Drug Resistant Organisms: None Reported Past Surgical History: Heart Catheterization, Pacemaker Additional Past Surgical History / Comment(s): CATARACTS TRAY EYES REMOVED. liver biopsy on 10-18-13, heart cath 2004 Past Anesthesia/Blood Transfusion Reactions: No Reported Reaction Type of Cardiac Device: Permanent Pacemaker Device Placement Date:: UNK Past Psychological History: Bipolar, Depression Smoking Status: Never smoker Past Alcohol Use History: Occasional Past Drug Use History: None Reported - Past Family History Mother Family Medical History: Cancer Sister(s) Family Medical History: Cancer <Walker Leos - Last Filed: 09/13/17 06:54> General Exam Limitations: no limitations <Walker Leos - Last Filed: 09/13/17 06:54> <Walker Henry - Last Filed: 09/13/17 09:33> - General Exam Comments Initial Comments: GENERAL: Patient is well-developed and well-nourished. Patient is nontoxic and well- hydrated and is in mild distress. ENT: Neck is soft and supple. No significant lymphadenopathy is noted. Oropharynx is clear. Moist mucous membranes. Neck has full range of motion without eliciting any pain. EYES: The sclera were anicteric and conjunctiva were pink and moist. Extraocular movements were intact and pupils were equal round and reactive to light. Eyelids were unremarkable. PULMONARY: Unlabored respirations. Good breath sounds bilaterally. No audible rales rhonchi or wheezing was noted. CARDIOVASCULAR: There is a regular rate and rhythm without any murmurs gallops or rubs. ABDOMEN: Soft and nontender with normal bowel sounds. No palpable organomegaly was noted. There is no palpable pulsatile mass. SKIN: Skin is clear with no lesions or rashes and otherwise unremarkable. NEUROLOGIC: Patient is alert and oriented x3. Cranial nerves II through XII are grossly intact. Motor and sensory are also intact. Normal speech, volume and content. Symmetrical smile. MUSCULOSKELETAL: Normal extremities with adequate strength and full range of motion. LYMPHATICS: No significant lymphadenopathy is noted PSYCHIATRIC: Normal psychiatric evaluation. Normal interpersonal interactions appears functionally intact in deals appropriately with others. (Walker Leos) Vital Signs 09/13/17 09/13/17 09/13/17 05:33 07:49 09:20 Temperature 97.9 F Pulse Rate 57 L 68 75 Respiratory 20 18 18 Rate Blood Pressure 212/98 214/103 207/90 O2 Sat by Pulse 99 97 94 L Oximetry Medical Decision Making - Lab Data Result diagrams: 09/13/17 06:23 <Walker Leos - Last Filed: 09/13/17 06:54> - Lab Data Result diagrams: 09/13/17 06:23 09/13/17 06:23 - Radiology Data Radiology results: report reviewed (CT abdomen and pelvis positive for appendicitis, ultrasound gallbladder pending), image reviewed <Walker Henry - Last Filed: 09/13/17 09:33> - Medical Decision Making EKG shows a ventricular paced rhythm at 50 bpm NH interval is 132 QRS is 132 QT interval [address] Henry will be taking over the care of this patient at 7 AM (Walker Leos) 72 male the ER for evaluation of bowel pain. Patient's positive for appendicitis, positive for pancreatitis. Patient be admitted for surgical evaluation and treatment (Walker Henry) - Lab Data Lab Results 09/13/17 09/13/17 09/13/17 Range/Units 06:23 06:23 06:23 WBC 5.4 (3.8-10.6) k/uL RBC 4.74 (4.30-5.90) m/uL Hgb 14.1 (13.0-17.5) gm/dL Hct 44.1 (39.0-53.0) % MCV 93.0 (80.0-100.0) fL MCH 29.8 (25.0-35.0) pg MCHC 32.1 (31.0-37.0) g/dL RDW 13.0 (11.5-15.5) % Plt Count 114 L (150-450) k/uL Neutrophils % 68 % Lymphocytes % 20 % Monocytes % 4 % Eosinophils % 7 % Basophils % 1 % Neutrophils # 3.6 (1.3-7.7) k/uL Lymphocytes # 1.1 (1.0-4.8) k/uL Monocytes # 0.2 (0-1.0) k/uL Eosinophils # 0.4 (0-0.7) k/uL Basophils # 0.0 (0-0.2) k/uL Manual Slide Review Performed Large Platelets Present Sodium 138 (137-145) mmol/L Potassium 4.6 (3.5-5.1) mmol/L Chloride 102 (98-107) mmol/L Carbon Dioxide 28 (22-30) mmol/L Anion Gap 8 mmol/L BUN 23 H (9-20) mg/dL Creatinine 0.87 (0.66-1.25) mg/dL Est GFR (MDRD) Af Amer >60 (>60 ml/min/1.73 sqM) Est GFR (MDRD) Non-Af >60 (>60 ml/min/1.73 sqM) Glucose 227 H (74-99) mg/dL Plasma Lactic Acid Fermin (0.7-2.0) mmol/L Calcium 9.3 (8.4-10.2) mg/dL Total Bilirubin 2.1 H (0.2-1.3) mg/dL AST 69 H (17-59) U/L ALT 44 (21-72) U/L Alkaline Phosphatase 386 H (38-126) U/L Total Creatine Kinase 121 (55-170) U/L CK-MB (CK-2) 2.9 H* (0.0-2.4) ng/mL CK-MB (CK-2) Rel Index 2.4 Troponin I 0.024 (0.000-0.034) ng/mL Total Protein 7.9 (6.3-8.2) g/dL Albumin 3.9 (3.5-5.0) g/dL Amylase 305 H* (30-110) U/L Lipase 4990 H (23-300) U/L 09/13/17 Range/Units 07:37 WBC (3.8-10.6) k/uL RBC (4.30-5.90) m/uL Hgb (13.0-17.5) gm/dL Hct (39.0-53.0) % MCV (80.0-100.0) fL MCH (25.0-35.0) pg MCHC (31.0-37.0) g/dL RDW (11.5-15.5) % Plt Count (150-450) k/uL Neutrophils % % Lymphocytes % % Monocytes % % Eosinophils % % Basophils % % Neutrophils # (1.3-7.7) k/uL Lymphocytes # (1.0-4.8) k/uL Monocytes # (0-1.0) k/uL Eosinophils # (0-0.7) k/uL Basophils # (0-0.2) k/uL Manual Slide Review Large Platelets Sodium (137-145) mmol/L Potassium (3.5-5.1) mmol/L Chloride (98-107) mmol/L Carbon Dioxide (22-30) mmol/L Anion Gap mmol/L BUN (9-20) mg/dL Creatinine (0.66-1.25) mg/dL Est GFR (MDRD) Af Amer (>60 ml/min/1.73 sqM) Est GFR (MDRD) Non-Af (>60 ml/min/1.73 sqM) Glucose (74-99) mg/dL Plasma Lactic Acid Fermin 1.4 (0.7-2.0) mmol/L Calcium (8.4-10.2) mg/dL Total Bilirubin (0.2-1.3) mg/dL AST (17-59) U/L ALT (21-72) U/L Alkaline Phosphatase (38-126) U/L Total Creatine Kinase (55-170) U/L CK-MB (CK-2) (0.0-2.4) ng/mL CK-MB (CK-2) Rel Index Troponin I (0.000-0.034) ng/mL Total Protein (6.3-8.2) g/dL Albumin (3.5-5.0) g/dL Amylase (30-110) U/L Lipase (23-300) U/L Disposition <Walker Leos - Last Filed: 09/13/17 06:54> <Walker Henry - Last Filed: 09/13/17 09:33> Clinical Impression: Pancreatitis, Acute appendicitis Disposition: ADMITTED IP TO THIS HOSP Condition: Fair Referrals: Jimi Hubbard DO [Primary Care Provider] - 1-2 days
[2017-09-13 06:42] LABS: Basophils % (A) 1 %; Eosinophils # (A) 0.4 k/uL (0-0.7); Eosinophils % (A) 7 %; HCT 44.1 % (39.0-53.0); HGB 14.1 gm/dL (13.0-17.5); Lymphocytes # (A) 1.1 k/uL (1.0-4.8); Lymphocytes % (A) 20 %; MCH 29.8 pg (25.0-35.0); MCHC 32.1 g/dL (31.0-37.0); Mean Platelet Volume 10.9; Monocytes # (A) 0.2 k/uL (0-1.0); Monocytes % (A) 4 %; Neutrophils # (A) 3.6 k/uL (1.3-7.7); Neutrophils % (A) 68 %; Platelet Count 114 k/uL (150-450); RBC 4.74 m/uL (4.30-5.90); WBC 5.4 k/uL (3.8-10.6)
[2017-09-13 06:45] LABS: ALT 44 U/L (21-72); AST 69 U/L (17-59); Albumin 3.9 g/dL (3.5-5.0); Alkaline Phosphatase 386 U/L (38-126); Anion Gap 8 mmol/L; Blood Urea Nitrogen 23 mg/dL (9-20); Calcium 9.3 mg/dL (8.4-10.2); Carbon Dioxide 28 mmol/L (22-30); Chloride 102 mmol/L (98-107); Glucose 227 mg/dL (74-99); Potassium 4.6 mmol/L (3.5-5.1); Sodium 138 mmol/L (137-145); Total Bilirubin 2.1 mg/dL (0.2-1.3); Total Protein 7.9 g/dL (6.3-8.2)
[2017-09-13 07:03] LABS: Amylase 305 U/L (30-110)
[2017-09-13 07:04] LABS: Lipase 4990 U/L (23-300)
--- NOTE | 2017-09-13 07:04 | XR ---
EXAM: XR Chest, 2 Views CLINICAL HISTORY: abdominal pain TECHNIQUE: Frontal and lateral views of the chest. COMPARISON: 01/01/17 FINDINGS: Lungs: Prominent pulmonary vasculature bilaterally Pleural space: Unremarkable. No pneumothorax. Heart: Unremarkable. No cardiomegaly. Mediastinum: Unremarkable. Bones/joints: Unremarkable. Other findings: Left pacer is again noted. IMPRESSION: Prominent pulmonary vasculature, likely due to underinflation rather than pulmonary edema.
[2017-09-13 07:10] LABS: Large Platelets Present; Troponin I 0.024 ng/mL (0.000-0.034)
[2017-09-13 07:12] LABS: Creatine Kinase MB 2.9 ng/mL (0.0-2.4)
--- NOTE | 2017-09-13 07:23 | CT ---
EXAM: CT Abdomen and Pelvis Without Intravenous Contrast CLINICAL HISTORY: abdominal pain TECHNIQUE: Axial computed tomography images of the abdomen and pelvis without intravenous contrast. CTDI is 24.2 mGy and DLP is 1207.7 mGy-cm. This CT exam was performed using one or more of the following dose reduction techniques: automated exposure control, adjustment of the mA and/or kV according to patient size, and/or use of iterative reconstruction technique. Coronal and sagittal reconstructions are performed COMPARISON: 01/02/17 FINDINGS: Lower thorax: No acute findings. ABDOMEN: Liver: Unremarkable. Gallbladder and bile ducts: Unremarkable. No calcified stones. No ductal dilation. Pancreas: Unremarkable. No ductal dilation. Spleen: Unremarkable. No splenomegaly. Adrenals: Unremarkable. No mass. Kidneys and ureters: Small left renal cyst, cannot be fully characterized due to lack of IV contrast, similar to on the prior study. No obstructing stones. Stomach and bowel: Unremarkable. No obstruction. No mucosal thickening. Appendix: Distal appendix is dilated to 9 mm containing an 8 mm appendicolith, surrounded by small amount of stranding, new from the prior study PELVIS: Bladder: Unremarkable. No stones. Reproductive: Unremarkable as visualized. ABDOMEN and PELVIS: Intraperitoneal space: Unremarkable. No free air. No significant fluid collection. Bones/joints: Osteopenia. Moderate degenerative changes. No acute fracture. No dislocation. Soft tissues: Questionable right gynecomastia. Vasculature: Unremarkable. No abdominal aortic aneurysm. Lymph nodes: Unremarkable. No enlarged lymph nodes. Tubes, lines and devices: Left pacer leads are again noted. IMPRESSION: Distal appendix is dilated to 9 mm containing an 8 mm appendicolith, surrounded by small amount of stranding, new from the prior study , may suggest early appendicitis. [employer] 09/13/17 07:41 Verify Receipt Verified receipt with SIMÓN Patterson in ER for Dr. Monge on 09/13 07:41 (-05:00)
[2017-09-13] MEDS ORDERED: SODIUM CHLORIDE 0.9% 1,000 ML IV STA ×2 (07:47)
[2017-09-13] MEDS ORDERED: MORPHINE SULFATE 4 MG/ML SYRINGE IVP STA (07:47)
[2017-09-13] MEDS ORDERED: SODIUM CHLORIDE 0.9% 500 ML IV STA (07:47)
[2017-09-13] MEDS ORDERED: MORPHINE SULFATE 4 MG/ML SYRINGE IVP PRN (07:47)
[2017-09-13] MEDS ORDERED: hydrALAZINE HCL 20 MG/ML 1 ML VIAL IVP STA (08:16)
[2017-09-13] MEDS ORDERED: IPRATROPIUM-ALBUTEROL 3 ML NEB INHALATION STA (08:16)
[2017-09-13] MEDS ORDERED: PANTOPRAZOLE 40 MG/10 ML VIAL IVP STA (09:35)
[2017-09-13] MEDS ORDERED: ONDANSETRON 4 MG/2 ML VIAL IVP PRN (09:35)
[2017-09-13] MEDS ORDERED: ONDANSETRON 4 MG/2 ML VIAL IVP STA (09:35)
--- NOTE | 2017-09-13 10:48 | P.GSCN ---
History of Present Illness Consult date: 09/13/17 History of present illness: Patient is a 72-year-old black male who presents to the emergency room after calling an ambulance and complaining of chest/abdominal discomfort. The patient states he last ate yesterday and had a bowel movement yesterday. The patient is a very poor historian and states at this time is not having abdominal pain. The patient had radiographic studies performed including a CAT scan of the abdomen which is consistent with a the ansa possible distal fecalith with appendicitis. Additionally patient was noted to have elevated lipase 4990 elevated amylase of 305 and elevated bilirubin at 2.1 elevated AST of 69 and elevated alk phos at 386 the patient's white blood cell count is 5.4 Past surgical history: Patient unable to give history past medical history: Patient states he has congestive heart failure ALLERGIES: Patient states negative Social history: Patient denies smoking or alcohol use Review of systems: Lungs: Negative Heart: Congestive heart failure Abdomen: As above : Negative Review of Systems - Constitutional Reports as per HPI - Cardiovascular Cardiovascular Comment(s): CHF - Gastrointestinal Reports as per HPI - Genitourinary Reports as per HPI Past Medical History Past Medical History: Chest Pain / Angina, Heart Failure, COPD, Diabetes Mellitus, Hyperlipidemia, Hypertension, Myocardial Infarction ([place]), Osteoarthritis ([place]) Additional Past Medical History / Comment(s): 06/07/15 Pt presented to [facility] ER EMS feeling weak and having mild headache and anterior neck pain. Symptoms began days ago. Pt being admitted with clinical impression of weakness, acute renal failure. PT last admitted to [facility] 01/24/15 with acute DKA, acute metabolic encephalitis from DKA, acute renal failure, severe hyperkalemia, pseudohyponatremia. 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 Last Myocardial Infarction Date:: 11/2013 History of Any Multi-Drug Resistant Organisms: None Reported Past Surgical History: Heart Catheterization, Pacemaker Additional Past Surgical History / Comment(s): CATARACTS TRAY EYES REMOVED. liver biopsy on 10-18-13, heart cath 2004 Past Anesthesia/Blood Transfusion Reactions: No Reported Reaction Type of Cardiac Device: Permanent Pacemaker Device Placement Date:: UNK Past Psychological History: Bipolar, Depression Smoking Status: Never smoker Past Alcohol Use History: Occasional Past Drug Use History: None Reported - Past Family History Mother Family Medical History: Cancer Sister(s) Family Medical History: Cancer Medications and Allergies Home Medications Medication Instructions Recorded Confirmed Type Nitroglycerin Sl Tabs [Nitrostat] 0.4 mg SUBLINGUAL Q5M PRN 11/28/13 09/13/17 History HYDROcodone/APAP 5-325MG [[place] 1 tab PO Q6H PRN 12/15/14 09/13/17 History 5-325] Allopurinol [Zyloprim] 100 mg PO DAILY 01/24/15 09/13/17 History Carvedilol 25 mg PO BID 01/24/15 09/13/17 History Aspirin 325 mg PO DAILY 06/07/15 09/13/17 History Docusate [Colace] 100 mg PO HS 06/07/15 09/13/17 History Isosorbide Mononitrate ER [Imdur] 30 mg PO DAILY #30 tab.er.24h 06/09/15 Rx Gabapentin [Neurontin] 400 mg PO TID 05/16/16 09/13/17 History Insulin Glargine [Lantus] 45 unit SQ QAM 01/01/17 09/13/17 History amLODIPine [Norvasc] 5 mg PO DAILY 01/01/17 09/13/17 History Allergies Allergy/AdvReac Type Severity Reaction Status Date / Time No Known Allergies Allergy Verified 09/13/17 05:36 Surgical - Exam Vital Signs Temp Pulse Resp BP Pulse Ox 97.9 F 57 L 20 212/98 99 09/13/17 05:33 09/13/17 05:33 09/13/17 05:33 09/13/17 05:33 09/13/17 05:33 - General moderate distress, obese - Eyes Mild exophthalmos - ENT normal pinna - Neck no masses, trachea midline - Respiratory Decreased breath sounds bilaterally - Cardiovascular Heart Sounds: normal: S1, S2 - Abdomen No guarding or rebound Midepigastric discomfort Abdomen: soft, distended - Integumentary no rash - Psychiatric poor historian. Difficult to obtain history oriented to person Results - Labs 09/13/17 06:23 09/13/17 06:23 Abnormal Lab Results - Last 24 Hours (Table) 09/13/17 09/13/17 09/13/17 Range/Units 06:23 06:23 06:23 Plt Count 114 L (150-450) k/uL BUN 23 H (9-20) mg/dL Glucose 227 H (74-99) mg/dL Total Bilirubin 2.1 H (0.2-1.3) mg/dL AST 69 H (17-59) U/L Alkaline Phosphatase 386 H (38-126) U/L CK-MB (CK-2) 2.9 H* (0.0-2.4) ng/mL Amylase 305 H* (30-110) U/L Lipase 4990 H (23-300) U/L Diabetes panel 09/13/17 Range/Units 06:23 Sodium 138 (137-145) mmol/L Potassium 4.6 (3.5-5.1) mmol/L Chloride 102 (98-107) mmol/L Carbon Dioxide 28 (22-30) mmol/L BUN 23 H (9-20) mg/dL Creatinine 0.87 (0.66-1.25) mg/dL Glucose 227 H (74-99) mg/dL Calcium 9.3 (8.4-10.2) mg/dL AST 69 H (17-59) U/L ALT 44 (21-72) U/L Alkaline Phosphatase 386 H (38-126) U/L Total Protein 7.9 (6.3-8.2) g/dL Albumin 3.9 (3.5-5.0) g/dL Calcium panel 09/13/17 Range/Units 06:23 Calcium 9.3 (8.4-10.2) mg/dL Albumin 3.9 (3.5-5.0) g/dL Pituitary panel 09/13/17 Range/Units 06:23 Sodium 138 (137-145) mmol/L Potassium 4.6 (3.5-5.1) mmol/L Chloride 102 (98-107) mmol/L Carbon Dioxide 28 (22-30) mmol/L BUN 23 H (9-20) mg/dL Creatinine 0.87 (0.66-1.25) mg/dL Glucose 227 H (74-99) mg/dL Calcium 9.3 (8.4-10.2) mg/dL Adrenal panel 09/13/17 Range/Units 06:23 Sodium 138 (137-145) mmol/L Potassium 4.6 (3.5-5.1) mmol/L Chloride 102 (98-107) mmol/L Carbon Dioxide 28 (22-30) mmol/L BUN 23 H (9-20) mg/dL Creatinine 0.87 (0.66-1.25) mg/dL Glucose 227 H (74-99) mg/dL Calcium 9.3 (8.4-10.2) mg/dL Total Bilirubin 2.1 H (0.2-1.3) mg/dL AST 69 H (17-59) U/L ALT 44 (21-72) U/L Alkaline Phosphatase 386 H (38-126) U/L Total Protein 7.9 (6.3-8.2) g/dL Albumin 3.9 (3.5-5.0) g/dL - Imaging CT scan - abdomen: report reviewed, image reviewed Assessment and Plan Assessment: Impression/plan: 1. Extremely poor historian presents without family support and complaint of abdominal/chest discomfort 2. Computed tomography scan of the abdomen is consistent with a possible early acute distal appendicitis 2. Elevated lipase and amylase consistent with a pancreatitis 3. History of diabetes in the past records 4. History of renal disease 5. History of depression Plan: 1. Patient admited for medical stabilization 2. GI consultation regarding pancreatitis 3. Possible surgical intervention after medically stabilized from possible early appendicitis 4. At this time the patient does not have an acute surgical abdomen his white count is normal and he has no guarding or rebound. His pain seems to be consistent with pancreatitis more than an early acute appendicitis and would like to get an ultrasound of the gallbladder and GI consultation prior to any operative intervention.
--- NOTE | 2017-09-13 11:13 | US ---
EXAMINATION TYPE: US gallbladder DATE OF EXAM: 09/13/2017 COMPARISON: Retroperitoneal ultrasound 01/01/2017, CT abdomen pelvis 09/13/2017 CLINICAL HISTORY: Pain. EXAM MEASUREMENTS: Liver Length: 13.7 cm Gallbladder Wall: 0.3 cm CBD: 0.4 cm Right Kidney: 10.9 x 5.6 x 5.1 cm Patient has large abdomen, SOB, and confusion. Unable to cooperate with examiner. Pancreas: Obscured by bowel gas Liver: limited views, portions visualized appear unremarkable Gallbladder: limited views, portions visualized appear unremarkable Evidence for sonographic Henson's sign: No CBD: wnl Right Kidney: no hydro or masses identified IMPRESSION: 1. Some limitation due to bowel gas. 2. Right upper quadrant ultrasound appears without acute changes.
[2017-09-13 12:16] LABS: Glucose,Whole Blood 239 mg/dL (75-99)
--- NOTE | 2017-09-13 13:35 | P.PN ---
Progress Note - Text Patient's computed tomography scan and ultrasound were reviewed with Dr. Warren from radiology. Although there does appear to be a distal appendicolith there is minimal stranding near the area of the appendix to indicate acute appendicitis. The patient does have an elevated lipase indicating pancreatitis however the CAT scan does not reveal pancreatitis. Additionally it should be noted that ultrasound of the gallbladder does not appear to show any acute biliary disease. At this time we are obtaining a GI consult and are hesitant to operate in the face of possible acute pancreatitis. The patient is very comfortable and abdomen is very soft with no guarding or rebound at this time.
--- NOTE | 2017-09-13 14:04 | P.HPIM ---
History of Present Illness H&P Date: 09/13/17 Chief Complaint: Abdominal pain This is a 72-year-old -[place] male with past medical history significant for systolic congestive heart failure, type 2 diabetes with peripheral neuropathy, hypertension, dyslipidemia, chronic hepatitis C, chronic thrombocytopenia. Patient states he began having moderate related to severe mid abdominal pain with radiation into the bilateral lower quadrants since last night Patient states it is been constant since then. Patient denies any nausea, diarrhea reports mild vomiting Patient denies any fever chills. Patient states his abdomen is not distended is normally is but easily is currently. Patient denies any chest pain difficulty breathing or shortness of breath. Patient denies any recent fever chills or cough. Patient denies any palpitations. Patient denies any headache patient denies numbness weakness. Patient denies any injury or trauma recently. Patient denies any lightheadedness dizziness or near syncopal episode. The patient denies any recent drinking binges, and reports his only had 3 beers all week. In the ER he had a workup consistent with CT abdomen and pelvis that had a distal dilated appendix with the 8 mm appendicolith the small amount of stranding with possibility of early appenicitis, he was also noted to have elevated serum lipase level of 4990 suggestive of acute pancreatitis and was recommended for admission, he was started on IV morphine and antiemetics with Zofran and started on fluids and general surgery Dr. Evan Woodall was consulted Past Medical History Past Medical History: Chest Pain / Angina, Heart Failure, COPD, Diabetes Mellitus, Hyperlipidemia, Hypertension, Myocardial Infarction ([place]), Osteoarthritis ([place]) Additional Past Medical History / Comment(s): 06/07/15 Pt presented to [facility] ER EMS feeling weak and having mild headache and anterior neck pain. Symptoms began days ago. Pt being admitted with clinical impression of weakness, acute renal failure. PT last admitted to [facility] 01/24/15 with acute DKA, acute metabolic encephalitis from DKA, acute renal failure, severe hyperkalemia, pseudohyponatremia. 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 Last Myocardial Infarction Date:: 11/2013 History of Any Multi-Drug Resistant Organisms: None Reported Past Surgical History: Heart Catheterization, Pacemaker Additional Past Surgical History / Comment(s): CATARACTS TRAY EYES REMOVED. liver biopsy on 10-18-13, heart cath 2004 Past Anesthesia/Blood Transfusion Reactions: No Reported Reaction Type of Cardiac Device: Permanent Pacemaker Device Placement Date:: UNK Past Psychological History: Bipolar, Depression Smoking Status: Never smoker Past Alcohol Use History: Occasional Past Drug Use History: None Reported - Past Family History Mother Family Medical History: Cancer Sister(s) Family Medical History: Cancer Medications and Allergies Home Medications Medication Instructions Recorded Confirmed Type Nitroglycerin Sl Tabs [Nitrostat] 0.4 mg SUBLINGUAL Q5M PRN 11/28/13 09/13/17 History HYDROcodone/APAP 5-325MG [[place] 1 tab PO Q6H PRN 12/15/14 09/13/17 History 5-325] Carvedilol 25 mg PO AC-BID 01/24/15 09/13/17 History Docusate [Colace] 100 - 200 mg PO DAILY 06/07/15 09/13/17 History Isosorbide Mononitrate ER [Imdur] 30 mg PO DAILY #30 tab.er.24h 06/09/15 Rx Insulin Glargine [Lantus] 35 unit SQ QAM 01/01/17 09/13/17 History INSULIN LISPRO (humaLOG) [humaLOG] 8 - 21 units SQ AC-TID 09/13/17 09/13/17 History Ibuprofen [Motrin] 400 mg PO Q6HR PRN 09/13/17 09/13/17 History Losartan [Cozaar] 12.5 mg PO DAILY 09/13/17 09/13/17 History Spironolactone [Aldactone] 25 mg PO DAILY 09/13/17 09/13/17 History Allergies Allergy/AdvReac Type Severity Reaction Status Date / Time No Known Allergies Allergy Verified 09/13/17 11:35 Physical Exam Vitals: Vital Signs Temp Pulse Pulse Resp BP BP Pulse Ox 09/13/17 11:50 97.8 F 77 18 150/73 97 03/03/18 11:33 98.4 F 80 16 160/82 95 09/13/17 10:18 76 09/13/17 10:08 79 09/13/17 10:00 79 18 160/75 96 09/13/17 09:20 75 18 207/90 94 L 09/13/17 07:49 68 18 214/103 97 09/13/17 05:33 97.9 F 57 L 20 212/98 99 Intake and Output 09/12/17 09/13/17 09/13/17 22:59 06:59 14:59 Other: Weight 99.79 kg Constitutional: No acute distress, conversant, pleasant Eyes: Anicteric sclerae, moist conjunctiva, no lid-lag, PERRLA ENMT: NC/AT,Oropharynx clear, no erythema, exudates Neck:Supple, FROM, no masses, or JVD, No carotid bruits; No thyromegaly Lungs: Clear to auscultation, Clear to percussion, Normal respiratory effort, no accessory muscle use Cardiovascular: Heart regular in rate and rhythm, No murmurs, gallops, or rubs no peripheral edema Abdominal: Soft tender to deep palpation in the midepigastrium and right lower quadrant, moderately distended, no guarding, no rebound or rigidity, Normoactive bowel sounds No hepatomegaly, No splenomegaly, No palpable mass No abdominal wall hernia noted Skin: Normal temperature, tone, texture, turgor, No induration No subcutaneous nodules, No rash, lesions, No ulcers Extremities:No digital cyanosis No clubbing, Pedal pulses intact and symmetrical Radial pulses intact and symmetrical Normal gait and station, No calf tenderness Psychiatric: Awake alert, Appropriate affect Intact judgement Neuro: Muscles Strength 5/5 in all 4 extremities, Sensation to light touch grossly present throughout, Cranial nerves II-XII grossly intact. No focal sensory deficits Results CBC & Chem 7: 09/13/17 06:23 09/13/17 06:23 Labs: Abnormal Lab Results - Last 24 Hours (Table) 09/13/17 09/13/17 09/13/17 Range/Units 06:23 06:23 06:23 Plt Count 114 L (150-450) k/uL BUN 23 H (9-20) mg/dL Glucose 227 H (74-99) mg/dL POC Glucose (mg/dL) (75-99) mg/dL Total Bilirubin 2.1 H (0.2-1.3) mg/dL AST 69 H (17-59) U/L Alkaline Phosphatase 386 H (38-126) U/L CK-MB (CK-2) 2.9 H* (0.0-2.4) ng/mL Amylase 305 H* (30-110) U/L Lipase 4990 H (23-300) U/L 09/13/17 Range/Units 12:13 Plt Count (150-450) k/uL BUN (9-20) mg/dL Glucose (74-99) mg/dL POC Glucose (mg/dL) 239 H (75-99) mg/dL Total Bilirubin (0.2-1.3) mg/dL AST (17-59) U/L Alkaline Phosphatase (38-126) U/L CK-MB (CK-2) (0.0-2.4) ng/mL Amylase (30-110) U/L Lipase (23-300) U/L Thrombosis Risk Factor Assmnt - Choose All That Apply Each Risk Factor Represents 2 Points: Age 61-74 years Thrombosis Risk Factor Assessment Total Risk Factor Score: 2 Thrombosis Risk Factor Assessment Level: Low Risk Assessment and Plan (1) Acute pancreatitis Current Visit: Yes Status: Acute Code(s): K85.90 - ACUTE PANCREATITIS WITHOUT NECROSIS OR INFECTION, UNSP SNOMED Code(s): 404663927 (2) Acute appendicitis Current Visit: Yes Status: Acute Code(s): K35.80 - UNSPECIFIED ACUTE APPENDICITIS SNOMED Code(s): 73919807 (3) Type 2 diabetes mellitus with peripheral neuropathy Current Visit: Yes Status: Acute Code(s): E11.42 - TYPE 2 DIABETES MELLITUS WITH DIABETIC POLYNEUROPATHY SNOMED Code(s): 6860213728049 (4) Essential hypertension Current Visit: Yes Status: Acute Code(s): I10 - ESSENTIAL (PRIMARY) HYPERTENSION SNOMED Code(s): 38014223 Plan: The patient is a 72-year-old -[place] male was admitted with anticipation of a greater than 2 midnight stay for acute pancreatitis and concern for possible acute appendicitis. Right upper quadrant ultrasound didn' t show any findings suggestive of acute cholecystitis, the patient was started on IV fluid hydration, made nothing by mouth except meds, and started on IV morphine and antiemetics with Zofran. Gen. surgery Dr. Evan Woodall was consulted and recommends watchful waiting at this time as a patient is having acute pancreatitis flare and is reluctant to consider any appendectomy while this persists. GI was consulted for further recommendations. I will order a serum alcohol level, lipid panel, hemoglobin A1c, Accu-Cheks and initiated correctional scale insulin. Initiate Protonix and Lovenox for GI and DVT prophylaxis respectively. Resume his oral antihypertensive medications for his accelerated hypertension. We'll continue to follow this patient's clinical course
[2017-09-13] MEDS: PIPERACILLIN-TAZOBACTAM 3.375 GM in DEXTROSE/WATER 1 50ML.BAG IVPB SCH ×2 (17:29→23:25)
[2017-09-13] MEDS: CARVEDILOL 12.5 MG TAB PO SCH (17:30)
[2017-09-13 17:33] LABS: Glucose,Whole Blood 186 mg/dL (75-99)
[2017-09-13 18:07] LABS: Amorphous Sediment,Urine Rare /hpf; Appearance,Urine Cloudy (Clear); Bilirubin,Urine 2+ (Negative); Blood,Urine Negative (Negative); Color,Urine Orange; Glucose,Urine (UA) 1+ (Negative); Hyaline Casts,Urine 82 /lpf (0-2); Ketones,Urine Negative (Negative); Leukocyte Esterase,Urine Negative (Negative); Mucus,Urine Rare /hpf; Nitrite,Urine Negative (Negative); Protein,Urine 1+ (Negative); RBC,Urine 4 /hpf (0-5); Specific Gravity,Urine 1.014 (1.001-1.035); Squamous Epithelial Cell,Urine 1 /hpf (0-4); WBC,Urine 7 /hpf (0-5)
[2017-09-13] MEDS: INSULIN ASPART 100 UNIT/ML 1 ML 10 ML VIAL SQ SCH ×2 (18:23→20:43)
[2017-09-13 20:30] LABS: Glucose,Whole Blood 170 mg/dL (75-99)
[2017-09-14 07:44] LABS: Basophils % (A) 0 %; Eosinophils # (A) 0.1 k/uL (0-0.7); Eosinophils % (A) 1 %; HCT 38.5 % (39.0-53.0); HGB 12.2 gm/dL (13.0-17.5); Lymphocytes # (A) 1.3 k/uL (1.0-4.8); Lymphocytes % (A) 21 %; MCHC 31.7 g/dL (31.0-37.0); MCV 94.4 fL (80.0-100.0); Mean Platelet Volume 11.4; Monocytes # (A) 0.4 k/uL (0-1.0); Monocytes % (A) 6 %; Neutrophils # (A) 4.5 k/uL (1.3-7.7); Neutrophils % (A) 70 %; RBC 4.08 m/uL (4.30-5.90); RDW 13.1 % (11.5-15.5); WBC 6.4 k/uL (3.8-10.6)
[2017-09-14 07:48] LABS: Amylase 213 U/L (30-110); Cholesterol 129 mg/dL (<200); HDL Cholesterol 70 mg/dL (40-60); LDL Cholesterol,Calculated 30 mg/dL (0-99); Lipase 1072 U/L (23-300); Triglycerides 146 mg/dL (<150)
[2017-09-14 08:10] LABS: Glucose,Whole Blood 134 mg/dL (75-99)
[2017-09-14] MEDS: ISOSORBIDE MONONITRATE ER 30 MG TAB.ER.24H PO SCH (08:10)
[2017-09-14] MEDS: PANTOPRAZOLE 40 MG/10 ML VIAL IVP SCH (08:10)
[2017-09-14] MEDS: SPIRONOLACTONE 25 MG TAB PO SCH (08:10)
[2017-09-14] MEDS: ENOXAPARIN 40 MG/0.4 ML SYRINGE SQ SCH (08:10)
[2017-09-14] MEDS: CARVEDILOL 12.5 MG TAB PO SCH ×2 (08:10→17:24)
[2017-09-14] MEDS: PIPERACILLIN-TAZOBACTAM 3.375 GM in DEXTROSE/WATER 1 50ML.BAG IVPB SCH ×3 (08:10→23:11)
[2017-09-14 08:22] LABS: Large Platelets Present; Platelet Count 97 k/uL (150-450)
--- NOTE | 2017-09-14 08:26 | P.CONS ---
History of Present Illness - Reason for Consult Consult date: 09/13/17 Abdominal pain and suspected pancreatitis - History of Present Illness The patient is a 72-year-old male who arrived to the emergency room by ambulance because of abdominal and chest pains. The patient pointed to his whole abdomen as the area of pain and was having chest discomfort as well. His evaluation revealed elevated amylase and lipase. Very slight elevation in his liver enzymes. CT of the abdomen and pelvis did not show stranding around the pancreas or the appendix. The patient reported drinking alcohol 3-4 times a week up to 3 or 4 beers at the time. No vomiting or hematemesis. No jaundice, fever or chills. He was evaluated by surgery for possible appendicitis, but this was found to be low probability. Were asked to see him for possible pancreatitis. Review of Systems Constitutional: Denies fever, chills, sweats, weight gain, or loss. HEENT: Negative for migraines, blurred vision or loss, earaches, drainage, tinnitus, oral mucosal lesions, dysphagia, or odynophagia. Cardiac: Negative for chest pain, arrhythmias, or palpitation. Respiratory: Negative for shortness of breath, hemoptysis, cough, or sputum production. Gastrointestinal: See HPI for pertinent findings. Genitourinary: Negative for hematuria, urgency, frequency, polyuria, dysuria. Musculoskeletal: Negative for muscle aches, swelling, arthritis, and arthralgias. Neurologic: Negative for stroke or TIA. Endocrine: Negative for thyroid problems. Skin: Negative for rash or itching. Psychiatric: Negative history for depression and anxiety Past Medical History Past Medical History: Chest Pain / Angina, Heart Failure, COPD, Diabetes Mellitus, Hyperlipidemia, Hypertension, Myocardial Infarction ([place]), Osteoarthritis ([place]) Additional Past Medical History / Comment(s): 06/07/15 Pt presented to [facility] ER EMS feeling weak and having mild headache and anterior neck pain. Symptoms began days ago. Pt being admitted with clinical impression of weakness, acute renal failure. PT last admitted to [facility] 01/24/15 with acute DKA, acute metabolic encephalitis from DKA, acute renal failure, severe hyperkalemia, pseudohyponatremia. 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 Last Myocardial Infarction Date:: 11/2013 History of Any Multi-Drug Resistant Organisms: None Reported Past Surgical History: Heart Catheterization, Pacemaker Additional Past Surgical History / Comment(s): CATARACTS TRAY EYES REMOVED. liver biopsy on 10-18-13, heart cath 2004 Past Anesthesia/Blood Transfusion Reactions: No Reported Reaction Type of Cardiac Device: Permanent Pacemaker Device Placement Date:: Past Psychological History: Bipolar, Depression Smoking Status: Never smoker Past Alcohol Use History: Occasional Past Drug Use History: None Reported - Past Family History Mother Family Medical History: Cancer Sister(s) Family Medical History: Cancer Medications and Allergies Home Medications Medication Instructions Recorded Confirmed Type Nitroglycerin Sl Tabs [Nitrostat] 0.4 mg SUBLINGUAL Q5M PRN 11/28/13 09/13/17 History HYDROcodone/APAP 5-325MG [[place] 1 tab PO Q6H PRN 12/15/14 09/13/17 History 5-325] Carvedilol 25 mg PO AC-BID 01/24/15 09/13/17 History Docusate [Colace] 100 - 200 mg PO DAILY 06/07/15 09/13/17 History Isosorbide Mononitrate ER [Imdur] 30 mg PO DAILY #30 tab.er.24h 06/09/15 Rx Insulin Glargine [Lantus] 35 unit SQ QAM 01/01/17 09/13/17 History INSULIN LISPRO (humaLOG) [humaLOG] 8 - 21 units SQ AC-TID 09/13/17 09/13/17 History Ibuprofen [Motrin] 400 mg PO Q6HR PRN 09/13/17 09/13/17 History Losartan [Cozaar] 12.5 mg PO DAILY 09/13/17 09/13/17 History Spironolactone [Aldactone] 25 mg PO DAILY 09/13/17 09/13/17 History Allergies Allergy/AdvReac Type Severity Reaction Status Date / Time No Known Allergies Allergy Verified 09/13/17 11:35 Physical Exam Vitals: Vital Signs Temp Pulse Resp BP Pulse Ox 09/13/17 10:18 76 09/13/17 10:08 79 09/13/17 10:00 79 18 160/75 96 09/13/17 09:20 75 18 207/90 94 L 09/13/17 07:49 68 18 214/103 97 09/13/17 05:33 97.9 F 57 L 20 212/98 99 Intake and Output 09/12/17 09/13/17 09/13/17 22:59 06:59 14:59 Other: Weight 99.79 kg General appearance: The patient is alert, oriented, in no acute distress. HET: Head is normocephalic and atraumatic. Pupils are equal and reactive. Oropharynx is clear without lesions. Neck: Supple without lymphadenopathy. Trachea midline. Heart: S1 S2. Regular rate and rhythm. Lungs: No crackles or wheezes are heard. Abdomen: Soft, distended with bowel sounds. No peritoneal signs. No palpable organomegaly or masses. Extremities: Normal skin color and turgor. No cyanosis, rash, ulceration, clubbing, or edema. Radial and pedal pulses are 2/4 bilaterally. Neurological: No focal deficits. Strength and sensation are grossly intact. Results CBC & Chem 7: 09/14/17 07:17 09/13/17 06:23 Labs: Abnormal Lab Results - Last 24 Hours (Table) 09/13/17 09/13/17 09/13/17 Range/Units 06:23 06:23 06:23 Plt Count 114 L (150-450) k/uL BUN 23 H (9-20) mg/dL Glucose 227 H (74-99) mg/dL Total Bilirubin 2.1 H (0.2-1.3) mg/dL AST 69 H (17-59) U/L Alkaline Phosphatase 386 H (38-126) U/L CK-MB (CK-2) 2.9 H* (0.0-2.4) ng/mL Amylase 305 H* (30-110) U/L Lipase 4990 H (23-300) U/L Assessment and Plan Assessment: Acute onset of abdominal pain and elevated amylase and lipase likely on the basis of acute pancreatitis despite the normal CT of the abdomen at this time. With his history of alcohol consumption, I suspect alcohol related pancreatitis is the etiology. Plan: Agree with your current management. Would monitor closely. Repeat his labs and make further further decisions based on his course. Will follow with you closely.
[2017-09-14] MEDS ORDERED: LOSARTAN 25 MG TAB PO SCH (09:00)
--- NOTE | 2017-09-14 10:09 | P.PN ---
Subjective Progress Note Date: 09/14/17 Patient at this time denies any abdominal pain. The patient was seen in consultation by Dr. Jarrett who believes he may have alcoholic related pancreatitis. His lipase is decreased today to 1072 and his amylase is 213. The patient's computed tomography scan findings did show an appendicolith in the distal appendix with a question of some early appendicitis. However clinically the patient is denying any abdominal pain and states he is hungry. His white blood cell count is 6.4. The patient's main complaint at this time is that he is hungry. Objective - Vital Signs Vital signs: Vital Signs Temp 99.0 F 09/14/17 07:00 Pulse 83 09/14/17 07:00 Resp 16 09/14/17 07:00 BP 170/84 09/14/17 07:00 Pulse Ox 90 L 09/14/17 07:00 Intake & Output 09/13/17 09/14/17 09/14/17 18:59 06:59 18:59 Intake Total 0 1390 Output Total 100 300 Balance -100 1390 -300 Intake: Intake, IV Titration 800 Amount Sodium Chloride 0.9% 1, 800 000 ml @ 100 mls/hr IV . Q10H STA Rx#:[id number] Oral 0 590 Output: Urine 100 300 Other: # Voids 2 - Constitutional General appearance: Present: obese - Respiratory Details: Decreased breath sounds at the bases - Cardiovascular Heart sounds: normal: S1, S2 - Gastrointestinal General gastrointestinal: Present: decreased bowel sounds, distended, soft - Psychiatric Psychiatric Comment(s): Lethargic Difficult to obtain history - Labs CBC & Chem 7: 09/14/17 07:17 09/13/17 06:23 Labs: Abnormal Lab Results - Last 24 Hours (Table) 09/13/17 09/13/17 09/13/17 Range/Units 12:13 17:17 17:31 RBC (4.30-5.90) m/uL Hgb (13.0-17.5) gm/dL Hct (39.0-53.0) % Plt Count (150-450) k/uL POC Glucose (mg/dL) 239 H 186 H (75-99) mg/dL HDL Cholesterol (40-60) mg/dL Amylase (30-110) U/L Lipase (23-300) U/L Urine Protein 1+ H (Negative) Urine Glucose (UA) 1+ H (Negative) Urine Bilirubin 2+ H (Negative) Urine WBC 7 H (0-5) /hpf Amorphous Sediment Rare H (None) /hpf Hyaline Casts 82 H (0-2) /lpf Urine Mucus Rare H (None) /hpf 09/13/17 09/14/17 09/14/17 Range/Units 20:25 07:17 07:17 RBC 4.08 L (4.30-5.90) m/uL Hgb 12.2 L (13.0-17.5) gm/dL Hct 38.5 L (39.0-53.0) % Plt Count 97 L (150-450) k/uL POC Glucose (mg/dL) 170 H (75-99) mg/dL HDL Cholesterol 70 H (40-60) mg/dL Amylase 213 H (30-110) U/L Lipase 1072 H (23-300) U/L Urine Protein (Negative) Urine Glucose (UA) (Negative) Urine Bilirubin (Negative) Urine WBC (0-5) /hpf Amorphous Sediment (None) /hpf Hyaline Casts (0-2) /lpf Urine Mucus (None) /hpf 09/14/17 Range/Units 08:08 RBC (4.30-5.90) m/uL Hgb (13.0-17.5) gm/dL Hct (39.0-53.0) % Plt Count (150-450) k/uL POC Glucose (mg/dL) 134 H (75-99) mg/dL HDL Cholesterol (40-60) mg/dL Amylase (30-110) U/L Lipase (23-300) U/L Urine Protein (Negative) Urine Glucose (UA) (Negative) Urine Bilirubin (Negative) Urine WBC (0-5) /hpf Amorphous Sediment (None) /hpf Hyaline Casts (0-2) /lpf Urine Mucus (None) /hpf Assessment and Plan Assessment: Impression/plan: 1. Extremely poor historian presents without family support and complaint of abdominal/chest discomfort 2. Computed tomography scan of the abdomen is consistent with a possible early acute distal appendicitis 2. Elevated lipase and amylase consistent with a pancreatitis 3. History of diabetes in the past records 4. History of renal disease 5. History of depression Plan: 1. Patient admited for medical stabilization 2. GI consultation regarding pancreatitis appreciated and appears to have improvement in lipase and amylase at this time 3. Possible surgical intervention after medically stabilized for possible early appendicitis 4. At this time the patient does not have an acute surgical abdomen his white count is normal and he has no guarding or rebound. His pain seems to be consistent with pancreatitis more than an early acute appendicitis and would like to get an ultrasound of the gallbladder was negative for gallstones, and GI consultation feels he may well have alcoholic pancreatitis which seems to be improving 5. At this time patient does not have an acute surgical abdomen, he has no pain related to possible early appendicitis, he has a normal white count, and we are hesitant to operate in the setting of pancreatitis, he appears to have a distal appendicolit which is not symptomatic at this time we're following this very closely 6. Clear liquids if okay with GI
[2017-09-14 11:20] LABS: Glucose,Whole Blood 127 mg/dL (75-99)
[2017-09-14] MEDS: INSULIN ASPART 100 UNIT/ML 1 ML 10 ML VIAL SQ SCH ×4 (12:44→20:24)
[2017-09-14] MEDS ORDERED: LOSARTAN 25 MG TAB PO STA (13:08)
--- NOTE | 2017-09-14 13:10 | P.PN ---
Subjective Progress Note Date: 09/14/17 Patient only reports mild abdominal pain denies any nausea or vomiting states it is hungry and wants to eat. No acute events overnight Objective - Vital Signs Vital signs: Vital Signs Temp 99.0 F 09/14/17 07:00 Pulse 83 09/14/17 08:00 Resp 16 09/14/17 08:00 BP 170/84 09/14/17 07:00 Pulse Ox 90 L 09/14/17 07:00 Intake & Output 09/13/17 09/14/17 09/14/17 18:59 06:59 18:59 Intake Total 0 1390 Output Total 100 300 Balance -100 1390 -300 Intake: Intake, IV Titration 800 Amount Sodium Chloride 0.9% 1, 800 000 ml @ 100 mls/hr IV . Q10H STA Rx#:[id number] Oral 0 590 Output: Urine 100 300 Other: Voiding Method Urinal # Voids 2 - Exam Constitutional: No acute distress, conversant, pleasant Eyes: Anicteric sclerae, moist conjunctiva, no lid-lag, PERRLA ENMT: NC/AT,Oropharynx clear, no erythema, exudates Neck:Supple, FROM, no masses, or JVD, No carotid bruits; No thyromegaly Lungs: Clear to auscultation, Clear to percussion, Normal respiratory effort, no accessory muscle use Cardiovascular: Heart regular in rate and rhythm, No murmurs, gallops, or rubs no peripheral edema Abdominal: Mildly distended, nom distended, no guarding, no rebound or rigidity , Normoactive bowel sounds No hepatomegaly, No splenomegaly, No palpable mass No abdominal wall hernia noted Skin: Normal temperature, tone, texture, turgor, No induration No subcutaneous nodules, No rash, lesions, No ulcers Extremities:No digital cyanosis No clubbing, Pedal pulses intact and symmetrical Radial pulses intact and symmetrical Normal gait and station, No calf tenderness Psychiatric: Awake alert, Appropriate affect Intact judgement Neuro: Muscles Strength 5/5 in all 4 extremities, Sensation to light touch grossly present throughout, Cranial nerves II-XII grossly intact. No focal sensory deficits - Labs CBC & Chem 7: 09/14/17 07:17 09/13/17 06:23 Labs: Abnormal Lab Results - Last 24 Hours (Table) 09/13/17 09/13/17 09/13/17 Range/Units 17:17 17:31 20:25 RBC (4.30-5.90) m/uL Hgb (13.0-17.5) gm/dL Hct (39.0-53.0) % Plt Count (150-450) k/uL POC Glucose (mg/dL) 186 H 170 H (75-99) mg/dL HDL Cholesterol (40-60) mg/dL Amylase (30-110) U/L Lipase (23-300) U/L Urine Protein 1+ H (Negative) Urine Glucose (UA) 1+ H (Negative) Urine Bilirubin 2+ H (Negative) Urine WBC 7 H (0-5) /hpf Amorphous Sediment Rare H (None) /hpf Hyaline Casts 82 H (0-2) /lpf Urine Mucus Rare H (None) /hpf 09/14/17 09/14/17 09/14/17 Range/Units 07:17 07:17 08:08 RBC 4.08 L (4.30-5.90) m/uL Hgb 12.2 L (13.0-17.5) gm/dL Hct 38.5 L (39.0-53.0) % Plt Count 97 L (150-450) k/uL POC Glucose (mg/dL) 134 H (75-99) mg/dL HDL Cholesterol 70 H (40-60) mg/dL Amylase 213 H (30-110) U/L Lipase 1072 H (23-300) U/L Urine Protein (Negative) Urine Glucose (UA) (Negative) Urine Bilirubin (Negative) Urine WBC (0-5) /hpf Amorphous Sediment (None) /hpf Hyaline Casts (0-2) /lpf Urine Mucus (None) /hpf 09/14/17 Range/Units 11:19 RBC (4.30-5.90) m/uL Hgb (13.0-17.5) gm/dL Hct (39.0-53.0) % Plt Count (150-450) k/uL POC Glucose (mg/dL) 127 H (75-99) mg/dL HDL Cholesterol (40-60) mg/dL Amylase (30-110) U/L Lipase (23-300) U/L Urine Protein (Negative) Urine Glucose (UA) (Negative) Urine Bilirubin (Negative) Urine WBC (0-5) /hpf Amorphous Sediment (None) /hpf Hyaline Casts (0-2) /lpf Urine Mucus (None) /hpf Assessment and Plan (1) Acute pancreatitis Narrative/Plan: * Likely alcohol induced pancreatitis * Lipase trending down from 4990 to 1072, appreciate GI recommendations * We'll continue with nothing by mouth status, IV fluids, morphine and Zofran Current Visit: Yes Status: Acute Code(s): K85.90 - ACUTE PANCREATITIS WITHOUT NECROSIS OR INFECTION, UNSP SNOMED Code(s): 661780673 (2) Acute appendicitis Narrative/Plan: * Appreciate recommendations by general surgery * Despite having an appendicolith on CT exam appears that his abdominal pain is more due to his pancreatitis rather than any acute appendicitis the patient does not have a surgical abdomen on exam Current Visit: Yes Status: Acute Code(s): K35.80 - UNSPECIFIED ACUTE APPENDICITIS SNOMED Code(s): 82689348 (3) Type 2 diabetes mellitus with peripheral neuropathy Narrative/Plan: * Blood sugars are pretty stable continue with correctional scale coverage * A1c still pending Current Visit: Yes Status: Acute Code(s): E11.42 - TYPE 2 DIABETES MELLITUS WITH DIABETIC POLYNEUROPATHY SNOMED Code(s): 4470936185841 (4) Essential hypertension Narrative/Plan: * Patient's blood pressures elevated up to systolic of 170s we'll titrate up his Cozaar 25 mg by mouth daily * Continue to monitor Current Visit: Yes Status: Acute Code(s): I10 - ESSENTIAL (PRIMARY) HYPERTENSION SNOMED Code(s): 69516604
[2017-09-14 17:05] LABS: Glucose,Whole Blood 130 mg/dL (75-99)
[2017-09-14 17:23] LABS: Hemoglobin A1C 10.6 % (4.0-6.0)
[2017-09-14 20:23] LABS: Glucose,Whole Blood 136 mg/dL (75-99)
[2017-09-15 07:15] LABS: Glucose,Whole Blood 177 mg/dL (75-99)
[2017-09-15] MEDS: INSULIN ASPART 100 UNIT/ML 1 ML 10 ML VIAL SQ SCH ×4 (07:26→20:36)
[2017-09-15] MEDS: PIPERACILLIN-TAZOBACTAM 3.375 GM in DEXTROSE/WATER 1 50ML.BAG IVPB SCH ×3 (07:27→23:09)
[2017-09-15] MEDS: CARVEDILOL 12.5 MG TAB PO SCH ×2 (07:35→17:51)
[2017-09-15] MEDS: ISOSORBIDE MONONITRATE ER 30 MG TAB.ER.24H PO SCH (07:36)
[2017-09-15] MEDS: ENOXAPARIN 40 MG/0.4 ML SYRINGE SQ SCH (07:36)
[2017-09-15] MEDS: PANTOPRAZOLE 40 MG/10 ML VIAL IVP SCH (07:36)
[2017-09-15] MEDS: SPIRONOLACTONE 25 MG TAB PO SCH (07:37)
--- NOTE | 2017-09-15 08:33 | P.PN ---
Subjective Progress Note Date: 09/15/17 Patient at this time denies any abdominal pain. The patient was seen in consultation by Dr. Jarrett who believes he may have alcoholic related pancreatitis. The patient's computed tomography scan findings did show an appendicolith in the distal appendix with a question of some early appendicitis. However clinically the patient is denying any abdominal pain and states he is hungry. He seems to have resolving pancreatitis and we are awaiting today's laboratory studies. The patient does complain of some pain in his eyes. Objective - Vital Signs Vital signs: Vital Signs Temp 98.7 F 09/15/17 07:00 Pulse 67 09/15/17 07:00 Resp 22 09/15/17 07:00 BP 158/74 09/15/17 07:00 Pulse Ox 97 09/15/17 07:00 Intake & Output 09/14/17 09/15/17 09/15/17 18:59 06:59 18:59 Intake Total 700 2180 Output Total 900 200 Balance -200 1979 Weight 99.79 kg Intake: IV 1000 0.9@100 1000 Intake, IV Titration 700 100 Amount Piperacillin-Tazobactam 3 100 .375 gm In Dextrose/Water 1 50ml.bag @ 12.5 mls/hr IVPB Q8HR REBA Rx#: [id number] Sodium Chloride 0.9% 1, 700 000 ml @ 100 mls/hr IV . Q10H STA Rx#:[id number] Oral 1080 Output: Urine 900 200 Other: Voiding Method Urinal Urinal Incontinent # Voids 2 - Constitutional General appearance: Present: obese - Respiratory Details: Decreased breath sounds at the bases - Cardiovascular Rhythm: regular Heart sounds: normal: S1, S2 - Gastrointestinal Gastrointestinal Comment(s): No guarding or rebound General gastrointestinal: Present: distended, soft - Psychiatric Psychiatric Comment(s): Patient seems more alert and oriented today I discussed with the patient the fact that he may have 2 things going on resolving pancreatitis as well as an early appendicitis however he has no abdominal pain and is refusing any operative intervention at this time; he is his own power of managing attorney: At this time the patient clinically has no evidence of an acute abdomen and this is a reasonable approach I discussed his case with his cousin as well who was given as his next of kin - Labs CBC & Chem 7: 09/14/17 07:17 09/13/17 06:23 Labs: Abnormal Lab Results - Last 24 Hours (Table) 09/13/17 09/14/17 09/14/17 Range/Units 06:23 11:19 16:50 POC Glucose (mg/dL) 127 H 130 H (75-99) mg/dL Hemoglobin A1c 10.6 H (4.0-6.0) % 09/14/17 09/15/17 Range/Units 20:18 07:00 POC Glucose (mg/dL) 136 H 177 H (75-99) mg/dL Hemoglobin A1c (4.0-6.0) % Assessment and Plan Assessment: Impression/plan: 1. Improved alertness today have discussed pancreatitis as well as possible early appendicitis as noted on computed tomography scan which is clinically not apparent at this time 2. Computed tomography scan of the abdomen is consistent with a possible early acute distal appendicitis 2. Elevated lipase and amylase consistent with a pancreatitis awaiting laboratory studies 3. History of diabetes in the past records 4. History of renal disease 5. History of depression 6. History of alcohol intake Plan: 1. Patient admited for medical stabilization 2. GI consultation regarding pancreatitis appreciated and appears to have improvement in lipase and amylase at this time 3. Possible surgical intervention after medically stabilized for possible early appendicitis 4. At this time the patient does not have an acute surgical abdomen his white count is normal and he has no guarding or rebound. His pain seems to be consistent with pancreatitis more than an early acute appendicitis and an ultrasound of the gallbladder was negative for gallstones, and GI consultation feels he may well have alcoholic pancreatitis which seems to be improving 5. At this time patient does not have an acute surgical abdomen, he has no pain related to possible early appendicitis, and we are hesitant to operate in the setting of pancreatitis, he appears to have a distal appendicolit which is not symptomatic at this time we're following this very closely 6. Clear liquids if okay with GI 7. Await a.m. laboratory studies
[2017-09-15] MEDS ORDERED: LOSARTAN 25 MG TAB PO SCH (09:00)
[2017-09-15 09:57] LABS: Amylase 189 U/L (30-110); Lipase 1043 U/L (23-300)
[2017-09-15 10:11] LABS: Basophils % (A) 0 %; Eosinophils # (A) 0.1 k/uL (0-0.7); Eosinophils % (A) 2 %; HCT 37.5 % (39.0-53.0); HGB 11.8 gm/dL (13.0-17.5); Hypochromasia Slight; Lymphocytes # (A) 1.3 k/uL (1.0-4.8); Lymphocytes % (A) 16 %; MCH 30.3 pg (25.0-35.0); MCHC 31.5 g/dL (31.0-37.0); Mean Platelet Volume 12.9; Monocytes # (A) 0.6 k/uL (0-1.0); Monocytes % (A) 7 %; Neutrophils % (A) 74 %; RBC 3.91 m/uL (4.30-5.90); RDW 13.1 % (11.5-15.5); WBC 8.1 k/uL (3.8-10.6)
[2017-09-15 10:13] LABS: Platelet Count 93 k/uL (150-450)
[2017-09-15 11:04] LABS: Albumin 3.3 g/dL (3.5-5.0); Potassium 5.4 mmol/L (3.5-5.1); Total Bilirubin 4.9 mg/dL (0.2-1.3)
[2017-09-15 11:18] LABS: Glucose,Whole Blood 257 mg/dL (75-99)
--- NOTE | 2017-09-15 12:52 | XR ---
EXAMINATION TYPE: XR chest 1V portable DATE OF EXAM: 09/15/2017 COMPARISON: 09/13/2017 HISTORY: Shortness of breath TECHNIQUE: Single frontal view of the chest is obtained. FINDINGS: There is mild pulmonary vascular congestion and cardiomegaly in combination with a multile ad left-sided cardiac device. Skinfold overlies the right peripheral upper lung. Copious soft tissues partially obscure the lower lungs and costophrenic angles. Mild degenerative changes of the right ac romioclavicular joint are noted. IMPRESSION: Mild pulmonary vascular congestion and cardiomegaly raises suspicion for to compensating congestive heart failure.
--- NOTE | 2017-09-15 13:24 | P.PN ---
Subjective Progress Note Date: 09/15/17 Patient is a pretty poor historian, is complaining of bilateral eye pain, denies any significant abdominal pain or nausea, patient had had a low-grade temperature 100.2 overnight. Is being followed by Dr. Gordon and Dr. Brid[facility] general surgery and GI respectively Objective - Vital Signs Vital signs: Vital Signs Temp 98.7 F 09/15/17 07:00 Pulse 67 09/15/17 08:00 Resp 22 09/15/17 08:00 BP 158/74 09/15/17 07:00 Pulse Ox 97 09/15/17 07:00 Intake & Output 09/14/17 09/15/17 09/15/17 18:59 06:59 18:59 Intake Total 700 2180 Output Total 900 200 Balance -200 1979 Weight 99.79 kg 99.79 kg Intake: IV 1000 0.9@100 1000 Intake, IV Titration 700 100 Amount Piperacillin-Tazobactam 3 100 .375 gm In Dextrose/Water 1 50ml.bag @ 12.5 mls/hr IVPB Q8HR REBA Rx#: [id number] Sodium Chloride 0.9% 1, 700 000 ml @ 100 mls/hr IV . Q10H STA Rx#:[id number] Oral 1080 Output: Urine 900 200 Other: Voiding Method Urinal Urinal Urinal Incontinent Incontinent # Voids 2 - Exam Constitutional: No acute distress, conversant, pleasant Eyes: Anicteric sclerae, moist conjunctiva, no lid-lag, PERRLA ENMT: NC/AT,Oropharynx clear, no erythema, exudates Neck:Supple, FROM, no masses, or JVD, No carotid bruits; No thyromegaly Lungs: Clear to auscultation, Clear to percussion, Normal respiratory effort, no accessory muscle use Cardiovascular: Heart regular in rate and rhythm, No murmurs, gallops, or rubs no peripheral edema Abdominal: Mildly distended, nom distended, no guarding, no rebound or rigidity , Normoactive bowel sounds No hepatomegaly, No splenomegaly, No palpable mass No abdominal wall hernia noted Skin: Normal temperature, tone, texture, turgor, No induration No subcutaneous nodules, No rash, lesions, No ulcers Extremities:No digital cyanosis No clubbing, Pedal pulses intact and symmetrical Radial pulses intact and symmetrical Normal gait and station, No calf tenderness Psychiatric: Somnolent but arousable te affect Intact judgement Neuro: Muscles Strength 5/5 in all 4 extremities, Sensation to light touch grossly present throughout, Cranial nerves II-XII grossly intact. No focal sensory deficits - Labs CBC & Chem 7: 09/15/17 08:51 09/15/17 08:51 Labs: Abnormal Lab Results - Last 24 Hours (Table) 09/13/17 09/14/17 09/14/17 Range/Units 06:23 16:50 20:18 RBC (4.30-5.90) m/uL Hgb (13.0-17.5) gm/dL Hct (39.0-53.0) % Plt Count (150-450) k/uL Potassium (3.5-5.1) mmol/L Chloride (98-107) mmol/L Carbon Dioxide (22-30) mmol/L BUN (9-20) mg/dL Creatinine (0.66-1.25) mg/dL Glucose (74-99) mg/dL POC Glucose (mg/dL) 130 H 136 H (75-99) mg/dL Hemoglobin A1c 10.6 H (4.0-6.0) % Total Bilirubin (0.2-1.3) mg/dL Alkaline Phosphatase (38-126) U/L Albumin (3.5-5.0) g/dL Amylase (30-110) U/L Lipase (23-300) U/L 09/15/17 09/15/17 09/15/17 Range/Units 07:00 08:51 08:51 RBC 3.91 L (4.30-5.90) m/uL Hgb 11.8 L (13.0-17.5) gm/dL Hct 37.5 L (39.0-53.0) % Plt Count 93 L (150-450) k/uL Potassium (3.5-5.1) mmol/L Chloride (98-107) mmol/L Carbon Dioxide (22-30) mmol/L BUN (9-20) mg/dL Creatinine (0.66-1.25) mg/dL Glucose (74-99) mg/dL POC Glucose (mg/dL) 177 H (75-99) mg/dL Hemoglobin A1c (4.0-6.0) % Total Bilirubin (0.2-1.3) mg/dL Alkaline Phosphatase (38-126) U/L Albumin (3.5-5.0) g/dL Amylase 189 H (30-110) U/L Lipase 1043 H (23-300) U/L 09/15/17 09/15/17 Range/Units 08:51 11:17 RBC (4.30-5.90) m/uL Hgb (13.0-17.5) gm/dL Hct (39.0-53.0) % Plt Count (150-450) k/uL Potassium 5.4 H (3.5-5.1) mmol/L Chloride 110 H (98-107) mmol/L Carbon Dioxide 16 L (22-30) mmol/L BUN 37 H (9-20) mg/dL Creatinine 1.74 H (0.66-1.25) mg/dL Glucose 237 H (74-99) mg/dL POC Glucose (mg/dL) 257 H (75-99) mg/dL Hemoglobin A1c (4.0-6.0) % Total Bilirubin 4.9 H (0.2-1.3) mg/dL Alkaline Phosphatase 342 H (38-126) U/L Albumin 3.3 L (3.5-5.0) g/dL Amylase (30-110) U/L Lipase (23-300) U/L Assessment and Plan (1) Acute pancreatitis Narrative/Plan: * Likely alcohol induced pancreatitis * Lipase trending down from 4990 to 1072, appreciate GI recommendations * Continue with clear liquids for now then NPO AFTER MIDNIGHT IV fluids, morphine and Zofran Current Visit: Yes Status: Acute Code(s): K85.90 - ACUTE PANCREATITIS WITHOUT NECROSIS OR INFECTION, UNSP SNOMED Code(s): 536991520 (2) Acute appendicitis Narrative/Plan: * Patient did have a fever overnight despite being on antibiotics with Zosyn since admission, concern for smoldering sepsis pancreatitis * Appreciate recommendations by general surgery will reevaluate the patient in the morning check labs and if there is no significant improvement we'll plan to take the patient for appendicectomy * Despite having an appendicolith on CT exam appears that his abdominal pain is more due to his pancreatitis rather than any acute appendicitis the patient does not have a surgical abdomen on exam Current Visit: Yes Status: Acute Code(s): K35.80 - UNSPECIFIED ACUTE APPENDICITIS SNOMED Code(s): 20187683 (3) Type 2 diabetes mellitus with peripheral neuropathy Narrative/Plan: * Blood sugars are pretty stable continue with correctional scale coverage * A1c still pending Current Visit: Yes Status: Acute Code(s): E11.42 - TYPE 2 DIABETES MELLITUS WITH DIABETIC POLYNEUROPATHY SNOMED Code(s): 2541549721233 (4) Essential hypertension Narrative/Plan: * Patient's blood pressures elevated up to systolic of 150s-170s * We'll add Norvasc to his regimen, continue Aldactone and Coreg Current Visit: Yes Status: Acute Code(s): I10 - ESSENTIAL (PRIMARY) HYPERTENSION SNOMED Code(s): 57957626 (5) Acute renal failure Narrative/Plan: * Acute kidney injury with mild hyperkalemia and metabolic acidosis, due to possible sepsis?? vs medication induced from increased dose of Cozaar * Repeat labs later today * We'll hold ARB, consult nephrology for further recommendations Current Visit: No Status: Acute Code(s): N17.9 - ACUTE KIDNEY FAILURE, UNSPECIFIED SNOMED Code(s): 31461146
[2017-09-15] MEDS: amLODIPine 10 MG TAB PO SCH (14:33)
[2017-09-15 17:18] LABS: Glucose,Whole Blood 360 mg/dL (75-99)
[2017-09-15 20:05] LABS: Glucose,Whole Blood 315 mg/dL (75-99)
[2017-09-16 02:15] LABS: Appearance,Urine Cloudy (Clear); Bilirubin,Urine 2+ (Negative); Blood,Urine Negative (Negative); Color,Urine Dark Brown; Glucose,Urine (UA) Negative (Negative); Ketones,Urine Trace (Negative); Leukocyte Esterase,Urine Negative (Negative); Mucus,Urine Rare /hpf; Nitrite,Urine Negative (Negative); PH, Urine 5.5 (5.0-8.0); Protein,Urine Trace (Negative); RBC,Urine 3 /hpf (0-5); Specific Gravity,Urine 1.019 (1.001-1.035); Squamous Epithelial Cell,Urine <1 /hpf (0-4); WBC,Urine 17 /hpf (0-5)
[2017-09-16 07:07] LABS: Glucose,Whole Blood 284 mg/dL (75-99)
[2017-09-16] MEDS: INSULIN ASPART 100 UNIT/ML 1 ML 10 ML VIAL SQ SCH ×4 (07:33→21:35)
[2017-09-16] MEDS: CARVEDILOL 12.5 MG TAB PO SCH ×2 (07:33→17:31)
[2017-09-16 08:12] LABS: Calcium 8.9 mg/dL (8.4-10.2); Potassium 5.5 mmol/L (3.5-5.1)
[2017-09-16] MEDS: PIPERACILLIN-TAZOBACTAM 3.375 GM in DEXTROSE/WATER 1 50ML.BAG IVPB SCH ×3 (08:31→23:22)
[2017-09-16] MEDS: ENOXAPARIN 40 MG/0.4 ML SYRINGE SQ SCH (08:36)
[2017-09-16] MEDS: PANTOPRAZOLE 40 MG/10 ML VIAL IVP SCH (08:37)
[2017-09-16] MEDS: ISOSORBIDE MONONITRATE ER 30 MG TAB.ER.24H PO SCH (08:37)
[2017-09-16] MEDS: SPIRONOLACTONE 25 MG TAB PO SCH (08:37)
[2017-09-16] MEDS: amLODIPine 10 MG TAB PO SCH (08:37)
--- NOTE | 2017-09-16 09:05 | P.PN ---
Subjective Progress Note Date: 09/16/17 Principal diagnosis: Acute pancreatitis 72-year-old gentleman with a history of diabetes mellitus kidney disease obesity presented with acute abdominal pain elevated pancreatic liver enzymes consistent with acute pancreatitis. No stones mentioned on ultrasound abdomen/ CT. CT abdomen and pelvis without IV contrast reported appendicolith possible early appendicitis could not be excluded and he's been monitored closely by general surgery since admission. This morning he is sitting up in a bedside chair denies abdominal pain no nausea vomiting. Afebrile. Incontinent of urine. Elevated creatinine 2.1. He appears jaundice. Glucose 284-06352 hours. Potassium 5.5. Sodium 133. Lipase unchanged from yesterday 1044. Amylase 143. Objective - Vital Signs Vital signs: Vital Signs Temp 98.2 F 09/16/17 07:00 Pulse 67 09/16/17 07:00 Resp 24 09/16/17 07:00 BP 181/82 09/16/17 07:00 Pulse Ox 91 L 09/16/17 07:00 Intake & Output 09/15/17 09/16/17 09/16/17 18:59 06:59 18:59 Intake Total 550 50 Balance 550 50 Weight 99.79 kg 110 kg Intake: Intake, IV Titration 50 50 Amount Piperacillin-Tazobactam 3 50 50 .375 gm In Dextrose/Water 1 50ml.bag @ 12.5 mls/hr IVPB Q8HR [facility] Rx#: [id number] Oral 500 Other: Voiding Method Urinal Urinal Incontinent Incontinent # Voids 1 - Exam General appearance: The patient is alert, oriented, in no acute distress. Jaundice. HET: Head is normocephalic and atraumatic. Pupils are equal and reactive. Sclerae icterus. Oropharynx is clear without lesions. Neck: Supple without lymphadenopathy. Trachea midline. Heart: S1 S2. Regular rate and rhythm. Lungs: No crackles or wheezes are heard. Abdomen: Soft, nontender, nondistended with bowel sounds. No peritoneal signs. No palpable organomegaly or masses. Extremities: Normal skin color and turgor. No cyanosis, rash, ulceration, clubbing, or edema. Radial and pedal pulses are 2/4 bilaterally. Neurological: No focal deficits. Strength and sensation are grossly intact. - Labs CBC & Chem 7: 09/15/17 08:51 03/06/18 07:05 Labs: Abnormal Lab Results - Last 24 Hours (Table) 09/15/17 09/15/17 09/15/17 Range/Units 08:51 08:51 08:51 RBC 3.91 L (4.30-5.90) m/uL Hgb 11.8 L (13.0-17.5) gm/dL Hct 37.5 L (39.0-53.0) % Plt Count 93 L (150-450) k/uL Sodium (137-145) mmol/L Potassium 5.4 H (3.5-5.1) mmol/L Chloride 110 H (98-107) mmol/L Carbon Dioxide 16 L (22-30) mmol/L BUN 37 H (9-20) mg/dL Creatinine 1.74 H (0.66-1.25) mg/dL Glucose 237 H (74-99) mg/dL POC Glucose (mg/dL) (75-99) mg/dL Total Bilirubin 4.9 H (0.2-1.3) mg/dL Alkaline Phosphatase 342 H (38-126) U/L Albumin 3.3 L (3.5-5.0) g/dL Amylase 189 H (30-110) U/L Lipase 1043 H (23-300) U/L Urine Protein (Negative) Urine Ketones (Negative) Urine Bilirubin (Negative) Urine WBC (0-5) /hpf Urine Mucus (None) /hpf 09/15/17 09/15/17 09/15/17 Range/Units 11:17 17:17 18:02 RBC (4.30-5.90) m/uL Hgb (13.0-17.5) gm/dL Hct (39.0-53.0) % Plt Count (150-450) k/uL Sodium (137-145) mmol/L Potassium 5.4 H (3.5-5.1) mmol/L Chloride (98-107) mmol/L Carbon Dioxide (22-30) mmol/L BUN (9-20) mg/dL Creatinine (0.66-1.25) mg/dL Glucose (74-99) mg/dL POC Glucose (mg/dL) 257 H 360 H (75-99) mg/dL Total Bilirubin (0.2-1.3) mg/dL Alkaline Phosphatase (38-126) U/L Albumin (3.5-5.0) g/dL Amylase (30-110) U/L Lipase (23-300) U/L Urine Protein (Negative) Urine Ketones (Negative) Urine Bilirubin (Negative) Urine WBC (0-5) /hpf Urine Mucus (None) /hpf 09/15/17 09/16/17 09/16/17 Range/Units 20:01 01:40 07:05 RBC (4.30-5.90) m/uL Hgb (13.0-17.5) gm/dL Hct (39.0-53.0) % Plt Count (150-450) k/uL Sodium 133 L (137-145) mmol/L Potassium 5.5 H (3.5-5.1) mmol/L Chloride (98-107) mmol/L Carbon Dioxide (22-30) mmol/L BUN 45 H (9-20) mg/dL Creatinine 2.13 H (0.66-1.25) mg/dL Glucose 264 H (74-99) mg/dL POC Glucose (mg/dL) 315 H (75-99) mg/dL Total Bilirubin (0.2-1.3) mg/dL Alkaline Phosphatase (38-126) U/L Albumin (3.5-5.0) g/dL Amylase 143 H (30-110) U/L Lipase 1044 H (23-300) U/L Urine Protein Trace H (Negative) Urine Ketones Trace H (Negative) Urine Bilirubin 2+ H (Negative) Urine WBC 17 H (0-5) /hpf Urine Mucus Rare H (None) /hpf 09/16/17 Range/Units 07:05 RBC (4.30-5.90) m/uL Hgb (13.0-17.5) gm/dL Hct (39.0-53.0) % Plt Count (150-450) k/uL Sodium (137-145) mmol/L Potassium (3.5-5.1) mmol/L Chloride (98-107) mmol/L Carbon Dioxide (22-30) mmol/L BUN (9-20) mg/dL Creatinine (0.66-1.25) mg/dL Glucose (74-99) mg/dL POC Glucose (mg/dL) 284 H (75-99) mg/dL Total Bilirubin (0.2-1.3) mg/dL Alkaline Phosphatase (38-126) U/L Albumin (3.5-5.0) g/dL Amylase (30-110) U/L Lipase (23-300) U/L Urine Protein (Negative) Urine Ketones (Negative) Urine Bilirubin (Negative) Urine WBC (0-5) /hpf Urine Mucus (None) /hpf Assessment and Plan (1) Acute pancreatitis Narrative/Plan: 72-year-old male admitted with acute abdominal pain elevated pancreatic and liver enzymes consistent with acute pancreatitis. No mentioning of gallstones on ultrasound or CAT scan with worsening hyperbilirubinemia and creatinine. Current Visit: Yes Status: Acute Code(s): K85.90 - ACUTE PANCREATITIS WITHOUT NECROSIS OR INFECTION, UNSP SNOMED Code(s): 437188412 (2) Elevated serum creatinine Narrative/Plan: Acute kidney injury Current Visit: Yes Status: Acute Code(s): R79.89 - OTHER SPECIFIED ABNORMAL FINDINGS OF BLOOD CHEMISTRY SNOMED Code(s): 917270006 (3) Elevated liver enzymes Current Visit: Yes Status: Acute Code(s): R74.8 - ABNORMAL LEVELS OF OTHER SERUM ENZYMES SNOMED Code(s): 951121419 (4) Jaundice Narrative/Plan: Elevated bilirubin possibly from peripancreatic edema Current Visit: Yes Status: Acute Code(s): R17 - UNSPECIFIED JAUNDICE SNOMED Code(s): 30625726 (5) Appendicolith Narrative/Plan: Possible early acute appendicitis being monitored closely by general surgery presently without fever or abdominal pain. Current Visit: Yes Status: Acute Code(s): K38.9 - DISEASE OF APPENDIX, UNSPECIFIED SNOMED Code(s): 53363347 (6) Obesity (BMI 30-39.9) Current Visit: Yes Status: Chronic Code(s): E66.9 - OBESITY, UNSPECIFIED SNOMED Code(s): 653428631 (7) Hyperkalemia Current Visit: Yes Status: Acute Code(s): E87.5 - HYPERKALEMIA SNOMED Code (s): 71507965 (8) Diabetes mellitus Current Visit: Yes Status: Chronic Code(s): E11.9 - TYPE 2 DIABETES MELLITUS WITHOUT COMPLICATIONS SNOMED Code(s): 41649392 Plan: 1. Hepatitis screen. Ca 19-9. CMP with fractionated bilirubin. 2. Intravenous hydration normal saline 125 mL an hour; with electrolyte monitoring. 3. Nothing by mouth except medications. Case was discussed with Dr. Richardson and general surgery nurse practitioner Deepa Richardson. 4. Will follow closely with you. Assessment and plan a care discussed with Dr. Macdonald
[2017-09-16 09:36] LABS: Albumin 3.3 g/dL (3.5-5.0); Bilirubin, Conjugated 2.8 mg/dL (0.0-0.3); Bilirubin,Unconjugated 0.6 mg/dL (0.0-1.1); Total Bilirubin 5.4 mg/dL (0.2-1.3); Total Protein 6.9 g/dL (6.3-8.2)
[2017-09-16] MEDS: SODIUM CHLORIDE 0.9% 1,000 ML IV SCH ×2 (09:53→17:30)
[2017-09-16] MEDS ORDERED: RX INFO: IV CONTRAST WAS GIVEN 1 EACH MISC MISCELLANE PRN (11:00)
[2017-09-16 11:07] LABS: Glucose,Whole Blood 231 mg/dL (75-99)
[2017-09-16] MEDS: IOHEXOL 350 MG/ML 25 ML BOTTLE (ORAL USE) PO PRN ×2 (11:19→12:16)
--- NOTE | 2017-09-16 11:48 | P.PN ---
Subjective Progress Note Date: 09/16/17 72-year-old male being seen and examined at bedside this morning. Patient continues to report having no abdominal pain no nausea vomiting did note the patient's creatinine is elevated 2.1. Patient has a jaundice appearance. Lipase is unchanged from the day before remains elevated at 1044. Patient is being followed by surgical service for initial presentation to the emergency room with acute abdominal pain and elevated pancreatic liver enzymes consistent with acute pancreatitis. Ultrasound of the abdomen report reviewed no mention of stones. CAT scan abdomen and pelvis without IV contrast obtained report indicated appendicoth with possible early appendicitis could not be excluded. Patient will be scheduled this morning for an oral contrast CT abdomen pelvis evaluating the appendix patient is aware of the plan of care Objective - Vital Signs Vital signs: Vital Signs Temp 98.2 F 09/16/17 07:00 Pulse 67 09/16/17 08:00 Resp 24 09/16/17 08:00 BP 181/82 09/16/17 07:00 Pulse Ox 91 L 09/16/17 07:00 Intake & Output 09/15/17 09/16/17 09/16/17 18:59 06:59 18:59 Intake Total 550 50 Balance 550 50 Weight 99.79 kg 110 kg Intake: Intake, IV Titration 50 50 Amount Piperacillin-Tazobactam 3 50 50 .375 gm In Dextrose/Water 1 50ml.bag @ 12.5 mls/hr IVPB Q8HR [facility] Rx#: [id number] Oral 500 Other: Voiding Method Urinal Urinal Urinal Incontinent Incontinent # Voids 1 - Exam Physical exam 72-year-old male sitting up in bed drinking the oral contrast continues to report tired out appears jaundiced Lungs diminished at the bases otherwise adequate air movement Heart S1-S2 audible regular Abdomen firm and distended no facial grimacing with palpitation to the abdominal wall not able to palpate any organomegaly no nausea no vomiting no stool Extremities no edema noted to the bilateral lower extremities - Labs CBC & Chem 7: 09/15/17 08:51 09/16/17 07:05 Labs: Abnormal Lab Results - Last 24 Hours (Table) 09/15/17 09/15/17 09/15/17 Range/Units 17:17 18:02 20:01 Sodium (137-145) mmol/L Potassium 5.4 H (3.5-5.1) mmol/L BUN (9-20) mg/dL Creatinine (0.66-1.25) mg/dL Glucose (74-99) mg/dL POC Glucose (mg/dL) 360 H 315 H (75-99) mg/dL Total Bilirubin (0.2-1.3) mg/dL Conjugated Bilirubin (0.0-0.3) mg/dL Delta Bilirubin (0.0-0.2) mg/dL AST (17-59) U/L Alkaline Phosphatase (38-126) U/L Albumin (3.5-5.0) g/dL Amylase (30-110) U/L Lipase (23-300) U/L Urine Protein (Negative) Urine Ketones (Negative) Urine Bilirubin (Negative) Urine WBC (0-5) /hpf Urine Mucus (None) /hpf 09/16/17 09/16/17 09/16/17 Range/Units 01:40 07:05 07:05 Sodium 133 L (137-145) mmol/L Potassium 5.5 H (3.5-5.1) mmol/L BUN 45 H (9-20) mg/dL Creatinine 2.13 H (0.66-1.25) mg/dL Glucose 264 H (74-99) mg/dL POC Glucose (mg/dL) 284 H (75-99) mg/dL Total Bilirubin 5.4 H (0.2-1.3) mg/dL Conjugated Bilirubin 2.8 H (0.0-0.3) mg/dL Delta Bilirubin 2.0 H (0.0-0.2) mg/dL AST 77 H (17-59) U/L Alkaline Phosphatase 347 H (38-126) U/L Albumin 3.3 L (3.5-5.0) g/dL Amylase 143 H (30-110) U/L Lipase 1044 H (23-300) U/L Urine Protein Trace H (Negative) Urine Ketones Trace H (Negative) Urine Bilirubin 2+ H (Negative) Urine WBC 17 H (0-5) /hpf Urine Mucus Rare H (None) /hpf 09/16/17 Range/Units 11:04 Sodium (137-145) mmol/L Potassium (3.5-5.1) mmol/L BUN (9-20) mg/dL Creatinine (0.66-1.25) mg/dL Glucose (74-99) mg/dL POC Glucose (mg/dL) 231 H (75-99) mg/dL Total Bilirubin (0.2-1.3) mg/dL Conjugated Bilirubin (0.0-0.3) mg/dL Delta Bilirubin (0.0-0.2) mg/dL AST (17-59) U/L Alkaline Phosphatase (38-126) U/L Albumin (3.5-5.0) g/dL Amylase (30-110) U/L Lipase (23-300) U/L Urine Protein (Negative) Urine Ketones (Negative) Urine Bilirubin (Negative) Urine WBC (0-5) /hpf Urine Mucus (None) /hpf Assessment and Plan Assessment: Impression Present on admission abdominal pain CAT scan abdomen pelvis reported appendicolith possible acute early appendicitis not ruled out Hyperkalemia Obesity BMI 36 Type 2 diabetes with episodes of hyperglycemia Prior history of alcohol intake Depressive disorder nonspecified Present on admission elevated lipase and amylase consistent with pancreatitis Acute kidney injury Hyperkalemia Plan We'll repeat a CAT scan abdomen pelvis with oral contrast follow up on results Further surgical recommendations pending findings from the CAT scan abdomen pelvis IV fluid for hydration Will follow labs DVT and GI prophylaxis Follow-up on pending hepatitis panel Progress note dictated for Dr. Teresa The above impression and plan of care have been discussed and directed by signing physician. Deepa Richardson nurse practitioner acting as scribe for signing physician.
--- NOTE | 2017-09-16 13:15 | CT ---
EXAMINATION TYPE: CT abdomen pelvis wo con DATE OF EXAM: 09/16/2017 COMPARISON: Prior CT 09/13/2017 an ultrasound 09/13/2017 HISTORY: Patient complains of periumbilical pain. CT DLP: 1322.1 mGycm Automated exposure control for dose reduction was used. TECHNIQUE: Helical acquisition of images from the lung bases through the pelvis. FINDINGS: The heart is enlarged. Anterior cardiac defibrillator leads are again noted. Pulmonary kendall ry may be prominent. Lack of contrast may compromise sensitivity. LUNG BASES: Small effusions and associated atelectasis have developed in the interval. AORTA: No significant abnormality is appreciated. LIVER/GB: No significant abnormality is appreciated. PANCREAS: Mildly bulbous appearance of the pancreas is indeterminate but stable.. SPLEEN: No significant abnormality is seen. ADRENALS: No significant abnormality is seen. KIDNEYS: No significant abnormality is seen. REPRODUCTIVE ORGANS: No significant abnormality is seen. URINARY BLADDER: Thickened wall may be due to chronic outlet obstruction, correlate to exclude cysti tis versus lack of distention. BOWEL: Stable appearance. There is an appendicolith present within a mildly distended gallbladder wi th mild wall thickening, there is not significant local inflammatory change however. Only mild thicke kimberlee of the appendix wall extending to the level of the cecum is noted with some minimal local linear increased soft tissue density within the mesenteric fat. FREE AIR: No Free Air is visible. ASCITES: None visible. PELVIC ADENOPATHY: None visualized. RETROPERITONEAL ADENOPATHY: No Retroperitoneal Adenopathy visible. OSSEOUS STRUCTURES: No significant abnormality is seen. Some local anasarca changes are present, increased attenuation within the subcutaneous fat about the flanks. IMPRESSION: FINDINGS ARE SIMILAR TO PRIOR EXAM, CORRELATE TO EXCLUDE APPENDICITIS. LACK OF CONTRAST MAY COMPROMIS E SENSITIVITY. INTERVAL DEVELOPMENT OF SMALL PLEURAL EFFUSIONS AND LOCAL ATELECTASIS. CARDIOMEGALY. A DDITIONAL FINDINGS ABOVE. SOME MILD PROMINENCE OF THE PANCREATIC HEAD, MRI MAY BE OF BENEFIT
--- NOTE | 2017-09-16 13:59 | P.PN ---
Subjective Progress Note Date: 09/16/17 Patient is a pretty poor historian, but is much more awake and alert today up sitting on the chair at the bedside. Is being followed by Dr. Gordon and Dr. Bridges [facility] general surgery and GI respectively Objective - Vital Signs Vital signs: Vital Signs Temp 98.2 F 09/16/17 07:00 Pulse 67 09/16/17 08:00 Resp 24 09/16/17 08:00 BP 181/82 09/16/17 07:00 Pulse Ox 91 L 09/16/17 07:00 Intake & Output 09/15/17 09/16/17 09/16/17 18:59 06:59 18:59 Intake Total 550 50 Balance 550 50 Weight 99.79 kg 110 kg Intake: Intake, IV Titration 50 50 Amount Piperacillin-Tazobactam 3 50 50 .375 gm In Dextrose/Water 1 50ml.bag @ 12.5 mls/hr IVPB Q8HR [facility] Rx#: [id number] Oral 500 Other: Voiding Method Urinal Urinal Urinal Incontinent Incontinent # Voids 1 - Exam Constitutional: No acute distress, conversant, pleasant Eyes: Anicteric sclerae, moist conjunctiva, no lid-lag, PERRLA ENMT: NC/AT,Oropharynx clear, no erythema, exudates Neck:Supple, FROM, no masses, or JVD, No carotid bruits; No thyromegaly Lungs: Clear to auscultation, Clear to percussion, Normal respiratory effort, no accessory muscle use Cardiovascular: Heart regular in rate and rhythm, No murmurs, gallops, or rubs no peripheral edema Abdominal: Mildly distended, nom distended, no guarding, no rebound or rigidity , Normoactive bowel sounds No hepatomegaly, No splenomegaly, No palpable mass No abdominal wall hernia noted Skin: Normal temperature, tone, texture, turgor, No induration No subcutaneous nodules, No rash, lesions, No ulcers Extremities:No digital cyanosis No clubbing, Pedal pulses intact and symmetrical Radial pulses intact and symmetrical Normal gait and station, No calf tenderness Psychiatric: Somnolent but arousable te affect Intact judgement Neuro: Muscles Strength 5/5 in all 4 extremities, Sensation to light touch grossly present throughout, Cranial nerves II-XII grossly intact. No focal sensory deficits - Labs CBC & Chem 7: 09/15/17 08:51 09/16/17 07:05 Labs: Abnormal Lab Results - Last 24 Hours (Table) 09/15/17 09/15/17 09/15/17 Range/Units 17:17 18:02 20:01 Sodium (137-145) mmol/L Potassium 5.4 H (3.5-5.1) mmol/L BUN (9-20) mg/dL Creatinine (0.66-1.25) mg/dL Glucose (74-99) mg/dL POC Glucose (mg/dL) 360 H 315 H (75-99) mg/dL Total Bilirubin (0.2-1.3) mg/dL Conjugated Bilirubin (0.0-0.3) mg/dL Delta Bilirubin (0.0-0.2) mg/dL AST (17-59) U/L Alkaline Phosphatase (38-126) U/L Albumin (3.5-5.0) g/dL Amylase (30-110) U/L Lipase (23-300) U/L Urine Protein (Negative) Urine Ketones (Negative) Urine Bilirubin (Negative) Urine WBC (0-5) /hpf Urine Mucus (None) /hpf 09/16/17 09/16/17 09/16/17 Range/Units 01:40 07:05 07:05 Sodium 133 L (137-145) mmol/L Potassium 5.5 H (3.5-5.1) mmol/L BUN 45 H (9-20) mg/dL Creatinine 2.13 H (0.66-1.25) mg/dL Glucose 264 H (74-99) mg/dL POC Glucose (mg/dL) 284 H (75-99) mg/dL Total Bilirubin 5.4 H (0.2-1.3) mg/dL Conjugated Bilirubin 2.8 H (0.0-0.3) mg/dL Delta Bilirubin 2.0 H (0.0-0.2) mg/dL AST 77 H (17-59) U/L Alkaline Phosphatase 347 H (38-126) U/L Albumin 3.3 L (3.5-5.0) g/dL Amylase 143 H (30-110) U/L Lipase 1044 H (23-300) U/L Urine Protein Trace H (Negative) Urine Ketones Trace H (Negative) Urine Bilirubin 2+ H (Negative) Urine WBC 17 H (0-5) /hpf Urine Mucus Rare H (None) /hpf 09/16/17 Range/Units 11:04 Sodium (137-145) mmol/L Potassium (3.5-5.1) mmol/L BUN (9-20) mg/dL Creatinine (0.66-1.25) mg/dL Glucose (74-99) mg/dL POC Glucose (mg/dL) 231 H (75-99) mg/dL Total Bilirubin (0.2-1.3) mg/dL Conjugated Bilirubin (0.0-0.3) mg/dL Delta Bilirubin (0.0-0.2) mg/dL AST (17-59) U/L Alkaline Phosphatase (38-126) U/L Albumin (3.5-5.0) g/dL Amylase (30-110) U/L Lipase (23-300) U/L Urine Protein (Negative) Urine Ketones (Negative) Urine Bilirubin (Negative) Urine WBC (0-5) /hpf Urine Mucus (None) /hpf Assessment and Plan (1) Acute pancreatitis Narrative/Plan: * Likely alcohol induced pancreatitis * Lipase trending down from 4990 to 1072, appreciate GI recommendations * Continue with clear liquids IV fluids, morphine and Zofran * Repeat CT abdomen and pelvis pending Current Visit: Yes Status: Acute Code(s): K85.90 - ACUTE PANCREATITIS WITHOUT NECROSIS OR INFECTION, UNSP SNOMED Code(s): 429417042 (2) Acute appendicitis Narrative/Plan: * Patient did have a fever overnight despite being on antibiotics with Zosyn since admission, concern for smoldering sepsis pancreatitis * Appreciate recommendations by general surgery will reevaluate the patient in the morning check labs and if there is no significant improvement we'll plan to take the patient for appendicectomy * Despite having an appendicolith on CT exam appears that his abdominal pain is more due to his pancreatitis rather than any acute appendicitis the patient does not have a surgical abdomen on exam Current Visit: Yes Status: Acute Code(s): K35.80 - UNSPECIFIED ACUTE APPENDICITIS SNOMED Code(s): 22860378 (3) Type 2 diabetes mellitus with peripheral neuropathy Narrative/Plan: * Blood sugars are elevated continue with correctional scale coverage * A1c 10.6 * Initiated basal insulin Levemir at 12 units at at bedtime and continue with correctional scale Current Visit: Yes Status: Acute Code(s): E11.42 - TYPE 2 DIABETES MELLITUS WITH DIABETIC POLYNEUROPATHY SNOMED Code(s): 4509374603782 (4) Essential hypertension Narrative/Plan: * Patient's blood pressures elevated up to systolic of 150s-170s * We'll add Norvasc to his regimen, continue Aldactone and Coreg Current Visit: Yes Status: Acute Code(s): I10 - ESSENTIAL (PRIMARY) HYPERTENSION SNOMED Code(s): 85001226 (5) Acute renal failure Narrative/Plan: * Acute kidney injury with mild hyperkalemia and metabolic acidosis, due to possible sepsis?? vs medication induced from increased dose of Cozaar * Creatinine trending up gradually to 2.1 today * We'll hold ARB, awaiting nephrology recommendations * Apparently the patient's IV fluids was discontinued or fell off his MAR, NS @ 125 cc/hr was restarted this am Current Visit: No Status: Acute Code(s): N17.9 - ACUTE KIDNEY FAILURE, UNSPECIFIED SNOMED Code(s): 16743395 (6) Hyperbilirubinemia Narrative/Plan: * Possibly secondary to dehydration/ MARGARITA * Continue with hydration and repeat labs tomorrow Current Visit: Yes Status: Acute Code(s): E80.6 - OTHER DISORDERS OF BILIRUBIN METABOLISM SNOMED Code(s): 14679704
--- NOTE | 2017-09-16 16:30 | P.PN ---
Progress Note - Text Patient was seen and evaluated. At this time patient denies any abdominal pain. The patient states he is passing flatus. The patient had a repeat computed tomography scan this reveals persistent colon with no change in the findings at the distal appendix. It is felt that this is most likely an incidental finding and the patient does not have an acute appendicitis at this time. The patient was noted to have an elevated bilirubin today and there is some concern that he may have hepatitis. He is being evaluated for this by the GI service. At this time we will hold off on operative intervention.
[2017-09-16 16:52] LABS: Glucose,Whole Blood 258 mg/dL (75-99)
[2017-09-16 18:42] LABS: Hepatitis A Antibody IgM Non-Reactive (Non-Reactive); Hepatitis B Core IgM Non-Reactive (Non-Reactive)
[2017-09-16 20:20] LABS: Glucose,Whole Blood 266 mg/dL (75-99)
[2017-09-16] MEDS ORDERED: INSULIN DETEMIR 100 UNIT/ML 10 ML VIAL SQ SCH (21:00)
--- NOTE | 2017-09-16 22:54 | CONS ---
CONSULTATION REASON FOR CONSULT: Renal failure. HISTORY OF PRESENT ILLNESS: Patient is a 72-year-old -[place] male who was admitted to the hospital on 09/13/2017 with abdominal pain. He was found to have acute pancreatitis and is currently maintained on IV fluids. The patient is being followed by General Surgery. The abdominal CT was done twice, initially on 09/13 and then again today, and both the studies were without IV contrast. No bile duct stones were noted. No hydronephrosis. Patient's serum creatinine was 0.87 mg/dL on initial admission. It has gone up to 2.13 today. The patient has been incontinent. He has been voiding in a urinal. Blood pressure has not been low; in fact, it is on the higher side, and again patient has not received any IV contrast. He is not on any nephrotoxic medications currently. PAST MEDICAL HISTORY: 1. COPD. 2. Type 2 diabetes. 3. Hyperlipidemia. 4. History of MA. 5. Osteoarthritis. 6. Hypertension. 7. Cardiomyopathy, ejection fraction 20%. 8. Gout. 9. Peripheral neuropathy. 10.Bipolar disorder. 11.Depression. PAST SURGICAL HISTORY: 1. Cardiac catheterization. 2. Cataract surgery. 3. Pacemaker. 4. Liver biopsy. MEDICATIONS: Medications prior to admission included: 1. Motrin. 2. Cozaar. 3. Aldactone. 4. Colace. 5. Coreg. ALLERGIES: NONE. PHYSICAL EXAMINATION: Patient is currently in the bathroom. His blood pressure was noted to be 147/ 72. Heart rate was at 56 per minute and regular. Patient is afebrile. I did not examine his abdomen. He has no underlying edema and no major focal deficits are noted. The patient is alert and oriented x3. LABS: Sodium 133, potassium 5.5 today. BUN 45, serum creatinine 2.13, AST 77, ALT 52, lipase 1044, which is down from 4990 on initial admission. UA shows trace protein, trace ketones, WBC 17, no blood. ASSESSMENT: 1. Acute kidney injury, most likely acute tubular necrosis, currently non- oliguric associated with pancreatitis. Rule out underlying urine retention. Will check a postvoidal residual. Continue with IV fluids. No nephrotoxic agents on board. Patient had been on LUCINDA inhibitors and nonsteroidal anti-inflammatory agents prior to admission, which are now currently on hold. I will also continue with the IV fluids for now and repeat labs in a.m. Avoid hypotension. No need to check ultrasound of the kidneys, as no evidence of hydronephrosis noted on 2 abdominal CTs done already. 2. Cardiomyopathy with ejection fraction 20%, currently compensated, although chest x- ray from yesterday did show mild pulmonary vascular congestion. 3. Acute pancreatitis, being followed by GI and Surgery. No evidence of biliary obstruction noted on the CT scan. 4. Hyperkalemia associated with acute kidney injury. Maintain patient on low- potassium diet. Avoid Kayexalate and control blood sugars. The patient's blood sugar was elevated at 264. Continue off of LUCINDA/I/ARBs. PLAN: Check postvoidal residual. We continue IV fluids. I will decrease the rate of the IV fluids tomorrow. Continue current antihypertensive medications and repeat labs in a.m. Currently patient is n.p.o. If he remains hyperkalemic, he will be maintained on a low- potassium diet. Thank you for this consultation. Will continue to follow the patient with you during his hospitalization. MMODL / IJN: [id number] / ALEX
[2017-09-17 01:23] LABS: Glucose,Whole Blood 202 mg/dL (75-99)
[2017-09-17] MEDS: SODIUM CHLORIDE 0.9% 1,000 ML IV SCH ×3 (02:09→14:33)
[2017-09-17 07:52] LABS: Glucose,Whole Blood 187 mg/dL (75-99)
[2017-09-17] MEDS: INSULIN ASPART 100 UNIT/ML 1 ML 10 ML VIAL SQ SCH ×4 (07:59→20:24)
[2017-09-17] MEDS: CARVEDILOL 12.5 MG TAB PO SCH ×2 (07:59→17:29)
[2017-09-17] MEDS: ISOSORBIDE MONONITRATE ER 30 MG TAB.ER.24H PO SCH (08:00)
[2017-09-17] MEDS: SPIRONOLACTONE 25 MG TAB PO SCH (08:00)
[2017-09-17] MEDS: PANTOPRAZOLE 40 MG/10 ML VIAL IVP SCH (08:00)
[2017-09-17] MEDS: amLODIPine 10 MG TAB PO SCH (08:01)
[2017-09-17] MEDS: ENOXAPARIN 40 MG/0.4 ML SYRINGE SQ SCH (08:01)
[2017-09-17] MEDS: PIPERACILLIN-TAZOBACTAM 3.375 GM in DEXTROSE/WATER 1 50ML.BAG IVPB SCH ×3 (08:05→23:00)
--- NOTE | 2017-09-17 09:10 | P.PN ---
Subjective Progress Note Date: 09/17/17 Principal diagnosis: Acute pancreatitis 72-year-old gentleman with a history of diabetes mellitus kidney disease obesity presented with acute abdominal pain elevated pancreatic liver enzymes consistent with acute pancreatitis. No stones mentioned on ultrasound abdomen/ CT. CT abdomen and pelvis without IV contrast reported appendicolith possible early appendicitis could not be excluded and he's been monitored closely by general surgery since admission. Afebrile. Incontinent of urine. Morning chemistries pending. Hepatitis screen positive hepatitis C IgG antibody. Surveillance CT abdomen and pelvis without contrast yesterday findings prior exam correlate to exclude appendicitis. Interval development of small pleural effusions and local atelectasis. Cardiomegaly. Mild prominence of the pancreatic head. Objective - Vital Signs Vital signs: Vital Signs Temp 97.7 F 09/17/17 07:00 Pulse 62 09/17/17 07:00 Resp 18 09/17/17 07:00 BP 186/84 09/17/17 07:00 Pulse Ox 92 L 09/17/17 07:00 Intake & Output 09/16/17 09/17/17 09/17/17 18:59 06:59 18:59 Output Total 250 Balance -250 Weight 110 kg 110.2 kg Output: Urine 250 Other: Voiding Method Urinal Toilet Urinal Urinal Incontinent # Voids 1 - Exam General appearance: The patient is alert, in no acute distress. Jaundice. HET: Head is normocephalic and atraumatic. Pupils are equal and reactive. Sclerae icterus. Oropharynx is clear without lesions. Neck: Supple without lymphadenopathy. Trachea midline. Heart: S1 S2. Regular rate and rhythm. Lungs: Poor inspiratory effort. Diminished in bases bilaterally. No crackles or wheezes are heard. Abdomen: Soft, nontender, with bowel sounds. No peritoneal signs. No palpable organomegaly or masses. Extremities: Normal skin color and turgor. No cyanosis, rash, ulceration, clubbing, or edema. Radial and pedal pulses are 2/4 bilaterally. Neurological: No focal deficits. Strength and sensation are grossly intact. - Labs CBC & Chem 7: 09/15/17 08:51 09/16/17 07:05 Labs: Abnormal Lab Results - Last 24 Hours (Table) 09/16/17 09/16/17 09/16/17 Range/Units 07:05 10:20 11:04 Sodium 133 L (137-145) mmol/L Potassium 5.5 H (3.5-5.1) mmol/L BUN 45 H (9-20) mg/dL Creatinine 2.13 H (0.66-1.25) mg/dL Glucose 264 H (74-99) mg/dL POC Glucose (mg/dL) 231 H (75-99) mg/dL Total Bilirubin 5.4 H (0.2-1.3) mg/dL Conjugated Bilirubin 2.8 H (0.0-0.3) mg/dL Delta Bilirubin 2.0 H (0.0-0.2) mg/dL AST 77 H (17-59) U/L Alkaline Phosphatase 347 H (38-126) U/L Albumin 3.3 L (3.5-5.0) g/dL Amylase 143 H (30-110) U/L Lipase 1044 H (23-300) U/L Hep C IgG Ab Reactive H (Non-Reactive) 09/16/17 09/16/17 09/17/17 Range/Units 16:50 20:14 01:18 Sodium (137-145) mmol/L Potassium (3.5-5.1) mmol/L BUN (9-20) mg/dL Creatinine (0.66-1.25) mg/dL Glucose (74-99) mg/dL POC Glucose (mg/dL) 258 H 266 H 202 H (75-99) mg/dL Total Bilirubin (0.2-1.3) mg/dL Conjugated Bilirubin (0.0-0.3) mg/dL Delta Bilirubin (0.0-0.2) mg/dL AST (17-59) U/L Alkaline Phosphatase (38-126) U/L Albumin (3.5-5.0) g/dL Amylase (30-110) U/L Lipase (23-300) U/L Hep C IgG Ab (Non-Reactive) 09/17/17 Range/Units 07:50 Sodium (137-145) mmol/L Potassium (3.5-5.1) mmol/L BUN (9-20) mg/dL Creatinine (0.66-1.25) mg/dL Glucose (74-99) mg/dL POC Glucose (mg/dL) 187 H (75-99) mg/dL Total Bilirubin (0.2-1.3) mg/dL Conjugated Bilirubin (0.0-0.3) mg/dL Delta Bilirubin (0.0-0.2) mg/dL AST (17-59) U/L Alkaline Phosphatase (38-126) U/L Albumin (3.5-5.0) g/dL Amylase (30-110) U/L Lipase (23-300) U/L Hep C IgG Ab (Non-Reactive) Microbiology - Last 24 Hours (Table) 09/15/17 13:20 Blood Culture - Preliminary Blood No Growth after 24 hours Assessment and Plan (1) Acute pancreatitis Narrative/Plan: 72-year-old male admitted with acute abdominal pain elevated pancreatic and liver enzymes consistent with acute pancreatitis. No mentioning of gallstones on ultrasound or CAT scan with worsening hyperbilirubinemia and creatinine. Current Visit: Yes Status: Acute Code(s): K85.90 - ACUTE PANCREATITIS WITHOUT NECROSIS OR INFECTION, UNSP SNOMED Code(s): 277127509 (2) Elevated serum creatinine Narrative/Plan: Acute kidney injury most likely acute tubular necrosis nonoliguric Current Visit: Yes Status: Acute Code(s): R79.89 - OTHER SPECIFIED ABNORMAL FINDINGS OF BLOOD CHEMISTRY SNOMED Code(s): 890664006 (3) Elevated liver enzymes Current Visit: Yes Status: Acute Code(s): R74.8 - ABNORMAL LEVELS OF OTHER SERUM ENZYMES SNOMED Code(s): 594856308 (4) Jaundice Narrative/Plan: Elevated bilirubin possibly from peripancreatic edema Current Visit: Yes Status: Acute Code(s): R17 - UNSPECIFIED JAUNDICE SNOMED Code(s): 98118340 (5) Appendicolith Narrative/Plan: Possible early acute appendicitis being monitored closely by general surgery presently without fever or abdominal pain. Current Visit: Yes Status: Acute Code(s): K38.9 - DISEASE OF APPENDIX, UNSPECIFIED SNOMED Code(s): 68885116 (6) Obesity (BMI 30-39.9) Current Visit: Yes Status: Chronic Code(s): E66.9 - OBESITY, UNSPECIFIED SNOMED Code(s): 873889844 (7) Hyperkalemia Current Visit: Yes Status: Acute Code(s): E87.5 - HYPERKALEMIA SNOMED Code (s): 69838256 (8) Diabetes mellitus Current Visit: Yes Status: Chronic Code(s): E11.9 - TYPE 2 DIABETES MELLITUS WITHOUT COMPLICATIONS SNOMED Code(s): 62839995 Plan: 1. Hepatitis screen reviewed. Morning chemistries including CA 19-9 pending. Consideration for MRCP today after review of morning chemistries. 2. Continue with Intravenous hydration with electrolyte monitoring. Nephrology recommendations reviewed and appreciated. 3. Nothing by mouth except medications. Case was discussed with Dr. Sams and general surgery nurse practitioner Deepa Richardson. 4. Will follow closely with you. Assessment and plan a care discussed with Dr. Macdonald
[2017-09-17 09:13] LABS: Bilirubin, Conjugated 2.7 mg/dL (0.0-0.3); Bilirubin,Unconjugated 0.4 mg/dL (0.0-1.1); Calcium 8.6 mg/dL (8.4-10.2); Total Bilirubin 5.1 mg/dL (0.2-1.3); Total Protein 6.6 g/dL (6.3-8.2)
[2017-09-17 09:14] LABS: Basophils % (A) 1 %; Eosinophils # (A) 0.1 k/uL (0-0.7); Eosinophils % (A) 3 %; HCT 37.3 % (39.0-53.0); HGB 12.3 gm/dL (13.0-17.5); Lymphocytes # (A) 0.8 k/uL (1.0-4.8); Lymphocytes % (A) 18 %; MCH 30.5 pg (25.0-35.0); MCHC 32.9 g/dL (31.0-37.0); MCV 92.7 fL (80.0-100.0); Mean Platelet Volume 11.5; Monocytes # (A) 0.4 k/uL (0-1.0); Monocytes % (A) 8 %; Neutrophils # (A) 3.1 k/uL (1.3-7.7); Neutrophils % (A) 67 %; Platelet Count 107 k/uL (150-450); RBC 4.02 m/uL (4.30-5.90); RDW 12.9 % (11.5-15.5); WBC 4.6 k/uL (3.8-10.6)
[2017-09-17 10:18] LABS: Large Platelets Present
[2017-09-17 10:19] LABS: Poikilocytosis (M) Present
[2017-09-17 12:09] LABS: Glucose,Whole Blood 192 mg/dL (75-99)
--- NOTE | 2017-09-17 12:34 | P.PN ---
Subjective Progress Note Date: 09/17/17 Principal diagnosis: Abdominal pain. Patient was asking to go home today. He denied having any chest pain or shortness of breath. No abdominal pain, no nausea or vomiting. Objective - Vital Signs Vital signs: Vital Signs Temp 97.7 F 09/17/17 07:00 Pulse 62 09/17/17 07:00 Resp 18 09/17/17 07:00 BP 186/84 09/17/17 07:00 Pulse Ox 92 L 09/17/17 07:00 Intake & Output 09/16/17 09/17/17 09/17/17 18:59 06:59 18:59 Output Total 250 Balance -250 Weight 110 kg 110.2 kg Output: Urine 250 Other: Voiding Method Urinal Toilet Urinal Urinal Incontinent # Voids 1 - Labs CBC & Chem 7: 09/17/17 08:33 09/17/17 08:28 Labs: Abnormal Lab Results - Last 24 Hours (Table) 09/16/17 09/16/17 09/16/17 Range/Units 10:20 16:50 20:14 RBC (4.30-5.90) m/uL Hgb (13.0-17.5) gm/dL Hct (39.0-53.0) % Plt Count (150-450) k/uL Lymphocytes # (1.0-4.8) k/uL Sodium (137-145) mmol/L BUN (9-20) mg/dL Creatinine (0.66-1.25) mg/dL Glucose (74-99) mg/dL POC Glucose (mg/dL) 258 H 266 H (75-99) mg/dL Total Bilirubin (0.2-1.3) mg/dL Conjugated Bilirubin (0.0-0.3) mg/dL Delta Bilirubin (0.0-0.2) mg/dL Alkaline Phosphatase (38-126) U/L Albumin (3.5-5.0) g/dL Lipase (23-300) U/L Hep C IgG Ab Reactive H (Non-Reactive) 09/17/17 09/17/17 09/17/17 Range/Units 01:18 07:50 08:28 RBC (4.30-5.90) m/uL Hgb (13.0-17.5) gm/dL Hct (39.0-53.0) % Plt Count (150-450) k/uL Lymphocytes # (1.0-4.8) k/uL Sodium 135 L (137-145) mmol/L BUN 46 H (9-20) mg/dL Creatinine 1.96 H (0.66-1.25) mg/dL Glucose 189 H (74-99) mg/dL POC Glucose (mg/dL) 202 H 187 H (75-99) mg/dL Total Bilirubin 5.1 H (0.2-1.3) mg/dL Conjugated Bilirubin 2.7 H (0.0-0.3) mg/dL Delta Bilirubin 2.0 H (0.0-0.2) mg/dL Alkaline Phosphatase 326 H (38-126) U/L Albumin 3.0 L (3.5-5.0) g/dL Lipase 1150 H (23-300) U/L Hep C IgG Ab (Non-Reactive) 09/17/17 09/17/17 Range/Units 08:33 12:08 RBC 4.02 L (4.30-5.90) m/uL Hgb 12.3 L (13.0-17.5) gm/dL Hct 37.3 L (39.0-53.0) % Plt Count 107 L (150-450) k/uL Lymphocytes # 0.8 L (1.0-4.8) k/uL Sodium (137-145) mmol/L BUN (9-20) mg/dL Creatinine (0.66-1.25) mg/dL Glucose (74-99) mg/dL POC Glucose (mg/dL) 192 H (75-99) mg/dL Total Bilirubin (0.2-1.3) mg/dL Conjugated Bilirubin (0.0-0.3) mg/dL Delta Bilirubin (0.0-0.2) mg/dL Alkaline Phosphatase (38-126) U/L Albumin (3.5-5.0) g/dL Lipase (23-300) U/L Hep C IgG Ab (Non-Reactive) Microbiology - Last 24 Hours (Table) 09/15/17 13:20 Blood Culture - Preliminary Blood No Growth after 24 hours Assessment and Plan Plan: (1) Acute pancreatitis/Hyperbilirubinemia * Likely alcohol induced pancreatitis * Lipase plateaued today. * Continue with clear liquids IV fluids, morphine and Zofran * Will discuss with GI. No gallstones were found on computed tomography scan, Will possibly require ERCP versus MRCP. (2) Acute appendicitis * Was initially suspected because of the presence of appendicolith on CT * Surgery service doesn't think patient has appendicitis, no plans for appendicectomy * Despite having an appendicolith on CT exam appears that his abdominal pain is more due to his pancreatitis rather than any acute appendicitis the patient does not have a surgical abdomen on exam (3) Type 2 diabetes mellitus with peripheral neuropathy * Blood sugars are still slightly elevated * A1c 10.6 * Basal insulin Levemir was started, initially received 10 units, will increase to 12 units at at bedtime and continue with correctional scale (4) Essential hypertension * Still slightly uncontrolled * Norvasc added to his regimen, continue Aldactone and Coreg (5) Acute renal failure * Acute kidney injury with mild hyperkalemia and metabolic acidosis, due to possible sepsis?? vs medication induced from increased dose of Cozaar * Creatinine improved today * Awaiting nephrology recommendations * Continue IV fluids
--- NOTE | 2017-09-17 13:30 | P.PN ---
Subjective Progress Note Date: 09/17/17 72-year-old male seen and examined. Patient continues to deny any abdominal pain no nausea no vomiting. Patients being followed by GI service. Plan is to do MRCP tomorrow to help clarify whether the patient does have acute pancreatitis. The bilirubin continues to be elevated this morning 5.1. Patient appears jaundiced abdomen distended with no facial grimacing with palpitation to the abdominal wall patient states is passing gas no stool. Patient's computed tomography scan of the abdomen pelvis with oral contrast done yesterday felt to be an incidental finding of appendicoth patient does not have an acute appendicitis at this time. Hepatitis panel pending Objective - Vital Signs Vital signs: Vital Signs Temp 97.7 F 09/17/17 07:00 Pulse 62 09/17/17 07:00 Resp 18 09/17/17 07:00 BP 186/84 09/17/17 07:00 Pulse Ox 92 L 09/17/17 07:00 Intake & Output 09/16/17 09/17/17 09/17/17 18:59 06:59 18:59 Output Total 250 Balance -250 Weight 110 kg 110.2 kg Output: Urine 250 Other: Voiding Method Urinal Toilet Urinal Urinal Incontinent # Voids 1 - Exam Physical exam 72-year-old male sitting up in bed appears jaundiced oriented to person and place "I don't know why you keep asking if I'm having abdominal pain patient continues to deny having abdominal pain Lungs diminished at the bases otherwise adequate air movement Heart S1-S2 audible regular Abdomen firm and distended no facial grimacing with palpitation to the abdominal wall not able to palpate any organomegaly no nausea no vomiting no stool Extremities no edema noted to the bilateral lower extremities - Labs CBC & Chem 7: 09/17/17 08:33 09/17/17 08:28 Labs: Abnormal Lab Results - Last 24 Hours (Table) 09/16/17 09/16/17 09/16/17 Range/Units 10:20 16:50 20:14 RBC (4.30-5.90) m/uL Hgb (13.0-17.5) gm/dL Hct (39.0-53.0) % Plt Count (150-450) k/uL Lymphocytes # (1.0-4.8) k/uL Sodium (137-145) mmol/L BUN (9-20) mg/dL Creatinine (0.66-1.25) mg/dL Glucose (74-99) mg/dL POC Glucose (mg/dL) 258 H 266 H (75-99) mg/dL Total Bilirubin (0.2-1.3) mg/dL Conjugated Bilirubin (0.0-0.3) mg/dL Delta Bilirubin (0.0-0.2) mg/dL Alkaline Phosphatase (38-126) U/L Albumin (3.5-5.0) g/dL Lipase (23-300) U/L Hep C IgG Ab Reactive H (Non-Reactive) 09/17/17 09/17/17 09/17/17 Range/Units 01:18 07:50 08:28 RBC (4.30-5.90) m/uL Hgb (13.0-17.5) gm/dL Hct (39.0-53.0) % Plt Count (150-450) k/uL Lymphocytes # (1.0-4.8) k/uL Sodium 135 L (137-145) mmol/L BUN 46 H (9-20) mg/dL Creatinine 1.96 H (0.66-1.25) mg/dL Glucose 189 H (74-99) mg/dL POC Glucose (mg/dL) 202 H 187 H (75-99) mg/dL Total Bilirubin 5.1 H (0.2-1.3) mg/dL Conjugated Bilirubin 2.7 H (0.0-0.3) mg/dL Delta Bilirubin 2.0 H (0.0-0.2) mg/dL Alkaline Phosphatase 326 H (38-126) U/L Albumin 3.0 L (3.5-5.0) g/dL Lipase 1150 H (23-300) U/L Hep C IgG Ab (Non-Reactive) 09/17/17 09/17/17 Range/Units 08:33 12:08 RBC 4.02 L (4.30-5.90) m/uL Hgb 12.3 L (13.0-17.5) gm/dL Hct 37.3 L (39.0-53.0) % Plt Count 107 L (150-450) k/uL Lymphocytes # 0.8 L (1.0-4.8) k/uL Sodium (137-145) mmol/L BUN (9-20) mg/dL Creatinine (0.66-1.25) mg/dL Glucose (74-99) mg/dL POC Glucose (mg/dL) 192 H (75-99) mg/dL Total Bilirubin (0.2-1.3) mg/dL Conjugated Bilirubin (0.0-0.3) mg/dL Delta Bilirubin (0.0-0.2) mg/dL Alkaline Phosphatase (38-126) U/L Albumin (3.5-5.0) g/dL Lipase (23-300) U/L Hep C IgG Ab (Non-Reactive) Microbiology - Last 24 Hours (Table) 09/15/17 13:20 Blood Culture - Preliminary Blood No Growth after 24 hours Assessment and Plan Assessment: Impression Present on admission abdominal pain CAT scan abdomen pelvis reported appendicolith possible acute early appendicitis not ruled out Hyperkalemia Obesity BMI 36 Type 2 diabetes with episodes of hyperglycemia Prior history of alcohol intake Depressive disorder nonspecified Present on admission elevated lipase and amylase consistent with pancreatitis Acute kidney injury Hyperkalemia CAT scan abdomen and pelvis incidental finding appendicoth with no evidence of an acute surgical abdomen Plan No plan for a surgical intervention at this time IV fluid for hydration Will follow labs DVT and GI prophylaxis Follow-up on pending hepatitis panel Progress note dictated for Dr. Teresa The above impression and plan of care have been discussed and directed by signing physician. Deepa Richardson nurse practitioner acting as scribe for signing physician.
[2017-09-17] MEDS ORDERED: FUROSEMIDE 10 MG/ML 4 ML VIAL IV STA (13:44)
--- NOTE | 2017-09-17 15:21 | PN ---
PROGRESS NOTE Patient is seen for followup for acute kidney injury. This morning he is complaining of more shortness of breath. He has been maintained on IV fluids overnight. Patient denies any chest pain. No significant abdominal pain. He states he has been voiding well. PHYSICAL EXAMINATION: Blood pressure was 186/84, heart rate 62 per minute. He is afebrile. Examination of the heart, S1, S2. Examination of the lungs, bilateral basal crackles are heard. Abdomen is soft. No significant tenderness noted. Examination of lower extremities shows trace edema bilaterally. PHARMACOLOGY ASSOCIATE exam is grossly intact. Patient moving all 4 extremities. LABS: Show sodium 135, potassium 5.0, BUN 46, serum creatinine 1.96, hemoglobin 12.3 g /dL. Lipase is 1150. ASSESSMENT: 1. Acute kidney injury secondary to ATN with acute pancreatitis. patient is currently nonoliguric. A bladder scan will be done to rule out any underlying urine retention. patient has been maintained on IV fluids. However, he is more short of breath today. I will decrease the fluids and give him one dose of IV Lasix. 2. Cardiomyopathy with ejection fraction of 20% mainly systolic heart failure with exacerbation currently, decrease IV fluids and Lasix x1 now. 3. Acute pancreatitis with no evidence of biliary obstruction noted on the CAT scan, being followed by GI and Surgery. 4. Hyperkalemia associated with acute kidney injury and hyperglycemia, currently improved with improved blood sugars. 5. Type 2 diabetes. PLAN: Decrease IV fluids. Lasix x1. Continue to hold off on angiotensin receptor blockers and repeat labs in a.m. Check bladder scan, rule out urine retention. MMODL / IJN: [id number] / [facility]ITALJackie
[2017-09-17 17:29] LABS: Glucose,Whole Blood 285 mg/dL (75-99)
[2017-09-17 20:10] LABS: Glucose,Whole Blood 276 mg/dL (75-99)
[2017-09-17] MEDS: INSULIN DETEMIR 100 UNIT/ML 10 ML VIAL SQ SCH (20:25)
[2017-09-18] MEDS ORDERED: FUROSEMIDE 10 MG/ML 4 ML VIAL IV STA (02:03)
[2017-09-18] MEDS: SODIUM CHLORIDE 0.9% 1,000 ML IV SCH (02:06)
[2017-09-18] MEDS ORDERED: NITROGLYCERIN OINT 1 INCH/GM PACKET TOPICAL STA (03:31)
--- NOTE | 2017-09-18 03:41 | P.PN ---
Progress Note - Text Progress Note Date: 09/18/17 I was called to evaluate the patient for SOB. Pt with acute pancreatitis and appendicitis, CHF wit hEF 20%, developing MARGARITA. SOB since this am and earlier received Lasix and fluid decreased to 100 cc/hr. 1 hr ago received 40 mg Lasix IV and fluid changed to KVO. No urine output since then and bladder scan showing only minimal urine. Pt was in bed, laying flat, awake, looks in discomfort due to SOB. Denies any abdominal or chest pain. States no pain but only SOB. Conversational dyspnea obvious on exam VS showed BP in 130s, HR in 90s-100, no O2 available Heads showed facial puffiness Respiratory: quick shallow breaths, diminished BS and crackles in the bases CVS muffled, tachy, regular Abdomen: soft, obese, BS diminished, no tenderness Extr: 2+ edema b/l no warmth or tenderness A/P: Clearly pt is in fluid overload, CHF exacerbation Concern for decreased urine output and MARGARITA Immediately will need BIPAP, BMP, Lactic acid and ABG, CXR, nitro paste, Elise catheter, EKG He also may need dialysis if no urine output. I will contact nephrology if any significant derangements on BMP and no urine output in next hour. Discontinue Aldactone. Needs stepdown unit at least, but no beds available there or in ICU hence he will need to remain on the floor for now until bed available, will start him on telemetry.
--- NOTE | 2017-09-18 04:10 | XR ---
EXAM: XR Chest, 1 View CLINICAL HISTORY: ITS.REASON XR Reason: sob TECHNIQUE: Frontal view of the chest. COMPARISON: Chest x-ray dated 09/13/2017. FINDINGS: Lungs: Reidentified patchy perihilar opacities and prominent interstitial structures compatible with pulmonary edema. These findings appear similar to the prior exam. There is worsened obscuration of the left hemidiaphragm. Pleural space: Unremarkable. No pneumothorax. Heart: Reidentified severe cardiomegaly. Mediastinum: Unremarkable. Bones/joints: Unremarkable. Tubes, lines and devices: 3-lead AICD overlying the left chest wall. IMPRESSION: 1. Reidentified patchy perihilar opacities and prominent interstitial structures compatible with pulmonary edema. These findings appear similar to the prior exam. 2. Worsened obscuration of the left hemidiaphragm that may represent atelectasis, pneumonia, or effusion.
[2017-09-18 04:25] LABS: ABG HCO3 21 mmol/L (21-25); ABG PCO2 48 mmHg (35-45); ABG PH 7.27 (7.35-7.45); ABG PO2 62 mmHg (83-108)
[2017-09-18 04:37] LABS: Basophils % (A) 0 %; Eosinophils # (A) 0.1 k/uL (0-0.7); Eosinophils % (A) 1 %; HCT 37.7 % (39.0-53.0); HGB 12.2 gm/dL (13.0-17.5); Hypochromasia Slight; Lymphocytes # (A) 0.7 k/uL (1.0-4.8); Lymphocytes % (A) 13 %; MCH 30.8 pg (25.0-35.0); MCHC 32.4 g/dL (31.0-37.0); MCV 95.1 fL (80.0-100.0); Monocytes # (A) 0.4 k/uL (0-1.0); Monocytes % (A) 8 %; Neutrophils # (A) 3.8 k/uL (1.3-7.7); Neutrophils % (A) 75 %; RBC 3.96 m/uL (4.30-5.90); RDW 13.2 % (11.5-15.5); WBC 5.1 k/uL (3.8-10.6)
[2017-09-18 04:49] LABS: Albumin 3.2 g/dL (3.5-5.0); Calcium 8.8 mg/dL (8.4-10.2); Magnesium 2.2 mg/dL (1.6-2.3); Phosphorus 3.8 mg/dL (2.5-4.5); Potassium 4.9 mmol/L (3.5-5.1); Total Bilirubin 4.5 mg/dL (0.2-1.3); Total Protein 6.9 g/dL (6.3-8.2)
[2017-09-18 04:58] LABS: Platelet Count 80 k/uL (150-450)
[2017-09-18 07:18] LABS: Glucose,Whole Blood 132 mg/dL (75-99)
[2017-09-18 07:52] LABS: ABG HCO3 22 mmol/L (21-25); ABG Oxygen Saturation 95.6 % (94-97); ABG PCO2 46 mmHg (35-45); ABG PH 7.29 (7.35-7.45); ABG PO2 75 mmHg (83-108); ABG TCO2 23 mmol/L (19-24)
[2017-09-18] MEDS: ENOXAPARIN 40 MG/0.4 ML SYRINGE SQ SCH (08:06)
[2017-09-18] MEDS: ISOSORBIDE MONONITRATE ER 30 MG TAB.ER.24H PO SCH (08:06)
[2017-09-18] MEDS: CARVEDILOL 12.5 MG TAB PO SCH ×2 (08:06→17:13)
[2017-09-18] MEDS: INSULIN ASPART 100 UNIT/ML 1 ML 10 ML VIAL SQ SCH ×4 (08:06→20:59)
[2017-09-18] MEDS: PIPERACILLIN-TAZOBACTAM 3.375 GM in DEXTROSE/WATER 1 50ML.BAG IVPB SCH (08:06)
[2017-09-18] MEDS: PANTOPRAZOLE 40 MG/10 ML VIAL IVP SCH (08:10)
[2017-09-18 08:26] LABS: Albumin 3.1 g/dL (3.5-5.0); Calcium 8.8 mg/dL (8.4-10.2); Total Bilirubin 4.3 mg/dL (0.2-1.3); Total Protein 6.9 g/dL (6.3-8.2)
--- NOTE | 2017-09-18 08:26 | P.PN ---
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 Patient only made less than 75 mL of urine over 4 hours with Lasix IV 40 mg. Currently patient is sitting in bed reports some trouble breathing but otherwise denies any chest pain or abdominal pain. He denies any coughing headache or dizziness. Patient probably has some component of dementia however he recognizes that he is at the hospital. I discussed the case with Deepa Richardson who came to bedside to address my concerns and reevaluate the abd which I found to be distended and probably causing some trouble breathing Patient has used the BiPAP for short period and then took it off because he found uncomfortable Objective - Vital Signs Vital signs: Vital Signs Temp 98.6 F 09/18/17 07:00 Pulse 65 09/18/17 07:00 Resp 19 09/18/17 07:00 BP 177/91 09/18/17 07:00 Pulse Ox 95 09/18/17 07:00 Intake & Output 09/17/17 09/18/17 09/18/17 18:59 06:59 18:59 Intake Total 650 120 Output Total 75 Balance 650 45 Weight 110 kg Intake: IV 400 0.9@100 400 Intake, IV Titration 250 Amount Piperacillin-Tazobactam 3 50 .375 gm In Dextrose/Water 1 50ml.bag @ 12.5 mls/hr IVPB Q8HR REBA Rx#: [id number] Sodium Chloride 0.9% 1, 200 000 ml @ 50 mls/hr IV . Q20H REBA Rx#:[id number] Oral 120 Output: Urine 75 Other: Voiding Method Urinal Urinal Incontinent Incontinent # Voids 2 - Exam Constitutional: vital signs showing elevated blood pressure, oxygenation saturation 95% on 3 L nasal cannula right now, patient is using accessory muscle of respiration and at times is having shallow rapid breathing. Eyes: Pupils equal round reactive to light, conjunctiva is edematous Lungs: Clear to auscultation bilaterally, clear to percussion, patient using accessory muscles of respiration, there is some diminished breath sounds over the right lung base, no crackles no rales no wheezing Cardiovascular: Regular rate and rhythm, no murmurs, no gallops, no rubs, +1 peripheral edema, and dependent edema and the abdominal flanks Gastrointestinal: Abdomen is distended mainly at the epigastric and right upper quadrant, at times feels hard to the touch due to contraction off abdominal wall muscles, bowel sounds positive but sluggish, no tenderness to palpation, possible component of epigastric hernia Extremities: No digital cyanosis or clubbing, peripheral pulses palpable and equal over bilateral radial arteries and dorsalis pedis artery, no calf muscle tenderness, capillary refill is immediate over bilateral big toes Psych: Alert, oriented to place, person, appropriate affect, following commands appropriately Elise catheter in place, only 75 mL of urine was made over the past 5 hours, clear yellow urine - Labs CBC & Chem 7: 09/18/17 04:06 09/18/17 07:56 Labs: Abnormal Lab Results - Last 24 Hours (Table) 09/17/17 09/17/17 09/17/17 Range/Units 07:41 08:28 08:33 RBC 4.02 L (4.30-5.90) m/uL Hgb 12.3 L (13.0-17.5) gm/dL Hct 37.3 L (39.0-53.0) % Plt Count 107 L (150-450) k/uL Lymphocytes # 0.8 L (1.0-4.8) k/uL ABG pH (7.35-7.45) ABG pCO2 (35-45) mmHg ABG pO2 (83-108) mmHg ABG O2 Saturation (94-97) % Sodium 135 L (137-145) mmol/L Carbon Dioxide (22-30) mmol/L BUN 46 H (9-20) mg/dL Creatinine 1.96 H (0.66-1.25) mg/dL Glucose 189 H (74-99) mg/dL POC Glucose (mg/dL) (75-99) mg/dL Plasma Lactic Acid Fermin (0.7-2.0) mmol/L Total Bilirubin 5.1 H (0.2-1.3) mg/dL Conjugated Bilirubin 2.7 H (0.0-0.3) mg/dL Delta Bilirubin 2.0 H (0.0-0.2) mg/dL Alkaline Phosphatase 326 H (38-126) U/L Albumin 3.0 L (3.5-5.0) g/dL Lipase 1150 H (23-300) U/L CA 19-9 Antigen 50.6 H (0.0-34.9) U/mL 09/17/17 09/17/17 09/17/17 Range/Units 12:08 17:26 20:02 RBC (4.30-5.90) m/uL Hgb (13.0-17.5) gm/dL Hct (39.0-53.0) % Plt Count (150-450) k/uL Lymphocytes # (1.0-4.8) k/uL ABG pH (7.35-7.45) ABG pCO2 (35-45) mmHg ABG pO2 (83-108) mmHg ABG O2 Saturation (94-97) % Sodium (137-145) mmol/L Carbon Dioxide (22-30) mmol/L BUN (9-20) mg/dL Creatinine (0.66-1.25) mg/dL Glucose (74-99) mg/dL POC Glucose (mg/dL) 192 H 285 H 276 H (75-99) mg/dL Plasma Lactic Acid Femrin (0.7-2.0) mmol/L Total Bilirubin (0.2-1.3) mg/dL Conjugated Bilirubin (0.0-0.3) mg/dL Delta Bilirubin (0.0-0.2) mg/dL Alkaline Phosphatase (38-126) U/L Albumin (3.5-5.0) g/dL Lipase (23-300) U/L CA 19-9 Antigen (0.0-34.9) U/mL 09/18/17 09/18/17 09/18/17 Range/Units 04:04 04:06 04:06 RBC (4.30-5.90) m/uL Hgb (13.0-17.5) gm/dL Hct (39.0-53.0) % Plt Count (150-450) k/uL Lymphocytes # (1.0-4.8) k/uL ABG pH 7.27 L (7.35-7.45) ABG pCO2 48 H (35-45) mmHg ABG pO2 62 L (83-108) mmHg ABG O2 Saturation 91.0 L (94-97) % Sodium 135 L (137-145) mmol/L Carbon Dioxide 20 L (22-30) mmol/L BUN 50 H (9-20) mg/dL Creatinine 2.10 H (0.66-1.25) mg/dL Glucose 116 H (74-99) mg/dL POC Glucose (mg/dL) (75-99) mg/dL Plasma Lactic Acid Fermin 0.6 L (0.7-2.0) mmol/L Total Bilirubin 4.5 H (0.2-1.3) mg/dL Conjugated Bilirubin (0.0-0.3) mg/dL Delta Bilirubin (0.0-0.2) mg/dL Alkaline Phosphatase 307 H (38-126) U/L Albumin 3.2 L (3.5-5.0) g/dL Lipase (23-300) U/L CA 19-9 Antigen (0.0-34.9) U/mL 09/18/17 09/18/17 09/18/17 Range/Units 04:06 07:17 07:47 RBC 3.96 L (4.30-5.90) m/uL Hgb 12.2 L (13.0-17.5) gm/dL Hct 37.7 L (39.0-53.0) % Plt Count 80 L (150-450) k/uL Lymphocytes # 0.7 L (1.0-4.8) k/uL ABG pH 7.29 L (7.35-7.45) ABG pCO2 46 H (35-45) mmHg ABG pO2 75 L (83-108) mmHg ABG O2 Saturation (94-97) % Sodium (137-145) mmol/L Carbon Dioxide (22-30) mmol/L BUN (9-20) mg/dL Creatinine (0.66-1.25) mg/dL Glucose (74-99) mg/dL POC Glucose (mg/dL) 132 H (75-99) mg/dL Plasma Lactic Acid Fermin (0.7-2.0) mmol/L Total Bilirubin (0.2-1.3) mg/dL Conjugated Bilirubin (0.0-0.3) mg/dL Delta Bilirubin (0.0-0.2) mg/dL Alkaline Phosphatase (38-126) U/L Albumin (3.5-5.0) g/dL Lipase (23-300) U/L CA 19-9 Antigen (0.0-34.9) U/mL Microbiology - Last 24 Hours (Table) 09/16/17 09:32 Urine Culture - Preliminary Urine,Voided 09/15/17 13:20 Blood Culture - Preliminary Blood No Growth after 48 hours Assessment and Plan Assessment: 72-year-old male with past medical history of congestive heart failure with left ventricular ejection fraction of 20%. Patient patient presented to the hospital with abdominal pain found to have acute pancreatitis, he was also suspected to have appendicitis however that was ruled out by general surgery team. GI is assisting in management of his pancreatitis however patient cannot give MRCP due to having a pacemaker. Lipase has been trending down. Patient denies any more abdominal pain nausea or vomiting. He continues to be nothing by mouth. Patient also developed acute kidney injury and currently he is oliguric Elise catheter was placed overnight for accurate ins and outs. Patient has developed respiratory distress today overnight which is thought to be due to fluid overload and heart failure he was given a dose of Lasix and was placed on BiPAP however there were no beds in the ICU or in the stepdown so patient could not be transferred. Plan: # Acute renal failure, oliguric #. Metabolic acidosis secondary to acute renal failure #. Shortness of breath , multifactorial , 1. I believe Acute renal failure and acidosis is the main culprit here 2. acute exacerbation of CHF with LVEF of 20% s/p ICD due to fluid overload (oliguria and patient was receiving IVF for acute pancreatitis) 3. Distended abd which is not leaving much room for breathing I discussed with nephrology consideration for urgent dialysis, they will evaluate Continue with BiPAP at bedside to help with work of breathing, as obviously patient is trying to clear the CO2 to help with acidosis but he is getting tired. Continue with close monitoring of vital signs, oxygen saturation, and urine output Check acute abdominal series rule out any dilated loops of bowels due to distended abdomen Case discussed with general surgery at bedside Continue with KVO at this time due to fluid overload earlier Patient could not be transferred to the ICU or stepdown due to unavailability of beds #Hypertension, malignant with component of pulmonary edema Systolic blood pressure in the high 170s with evidence of pulmonary edema earlier Nitropaste in place Patient to take morning meds including Coreg isoSorbide Reevaluate blood pressure 1 hour after taking medications I will add when necessary hydralazine for systolic blood pressures more than 170 #Diabetes mellitus with peripheral neuropathy Continue with current insulin management Blood sugars overall are ranging between 150s and low 200s #Acute pancreatitis, improving Lipase was trending down, currently patient denies any abdominal pain nausea or vomiting Patient could not get MRCP done due to having pacemaker #Hyperbilirubinemia, mostly of the conjugated type, liver enzymes are unremarkable except for elevated alkaline phosphatase This is an obstructive jaundice picture, due to edema from acute pancreatitis However patient is afebrile, no leukocytosis GI and general surgery are following DVT prophylaxis, discontinue Lovenox due to acute kidney injury switch to heparin sc TID History of chronic hepatitis C Thrombocytopenia most likely secondary to underlying hepatitis C No evidence of active bleeding at this time Patient is at moderate to high risk for any surgical intervention at this point due to acute CHF exacerbation with fluid overload and acute renal failure, and if not absolutely needed should be postponed at this point, per general surgery they think that the finding of fecalith in the appendix is an incidental finding and there is no enough evidence that the appendix is acutely inflamed, however patient did receive 5 days worth of antibiotics Zosyn and currently patient is not complaining of any fevers no leukocytosis and abdominal exam does not reveal any tenderness to palpation. General surgery will continue to follow-up and update the plan as needed. Meanwhile we will optimize his renal function and fluid overload status to get him in shape for any future plans. Discontinue Zosyn as general surgery ruled out acute appendicitis If patient develops diarrhea consider checking C. diff I will keep close monitoring of the patient today once bed available patient will at least need to be transferred to stepdown unit
[2017-09-18 08:27] LABS: Potassium 5.2 mmol/L (3.5-5.1)
[2017-09-18] MEDS ORDERED: hydrALAZINE HCL 25 MG TAB PO PRN (08:39)
--- NOTE | 2017-09-18 09:07 | XR ---
EXAMINATION TYPE: XR abdomen acute w cxr DATE OF EXAM: 09/18/2017 COMPARISON: NONE HISTORY: Distended abdomen difficulty breathing TECHNIQUE: Acute abdominal series performed with a frontal chest upright and supine views of the abdo men. FINDINGS: Heart size is mildly prominent. A left lower lobe infiltrate is likely present. Pacemaker o verlies left chest. No free air is under the diaphragm. Normal colonic bowel gas is present. No mass effect is evident. Psoas margins faintly visualized are normal. IMPRESSION: 1. Clinical correlation recommended for left lower lobe pneumonia. Minimal left pleural effusion is not excluded. 2. Cardiomegaly. 3. Unremarkable abdomen.
[2017-09-18] MEDS ORDERED: FUROSEMIDE 10 MG/ML 10 ML VIAL IV STA (09:08)
[2017-09-18] MEDS ORDERED: BISACODYL 10 MG SUPP RECTAL STA (09:26)
[2017-09-18 09:30] LABS: Prothrombin Time 10.1 sec (9.0-12.0)
[2017-09-18 09:45] LABS: Amylase 185 U/L (30-110); Lipase 1194 U/L (23-300)
--- NOTE | 2017-09-18 11:02 | P.PN ---
Subjective Progress Note Date: 09/18/17 Principal diagnosis: Acute pancreatitis 72-year-old gentleman with a history of diabetes mellitus kidney disease obesity presented with acute abdominal pain elevated pancreatic liver enzymes consistent with acute pancreatitis. No stones mentioned on ultrasound abdomen/ CT. CT abdomen and pelvis without IV contrast reported appendicolith possible early appendicitis could not be excluded and he's been monitored closely by general surgery since admission. Afebrile. Incontinent of urine. Increased creatinine over the last few days evaluation by nephrology completed; creatinine 2.1 today. Slow improvement in liver enzymes; total bilirubin 4.3. AST 56. ALT 41. Alkaline phosphatase 304. Lipase 1194. Amylase 185. CA-19-9 50.6. Hepatitis screen positive hepatitis C IgG antibody. Surveillance CT abdomen and pelvis without contrast 2 days ago reported findings prior exam correlate to exclude appendicitis. Interval development of small pleural effusions and local atelectasis. Cardiomegaly. Mild prominence of the pancreatic head. MRI unable to be completed secondary to history of pacemaker. Patient is more agitated this morning removed his Elise catheter with balloon intact. No passage of stool or flatus. Abdominal x-rays left lower lobe pneumonia correlation with minimal left pleural effusion is not excluded. Unremarkable abdomen. Cardiomegaly. Objective - Vital Signs Vital signs: Vital Signs Temp 98.6 F 09/18/17 07:00 Pulse 65 09/18/17 07:00 Resp 19 09/18/17 07:00 BP 177/91 09/18/17 07:00 Pulse Ox 95 09/18/17 07:00 Intake & Output 09/17/17 09/18/17 09/18/17 18:59 06:59 18:59 Intake Total 650 120 Output Total 75 Balance 650 45 Weight 110 kg 110 kg Intake: IV 400 0.9@100 400 Intake, IV Titration 250 Amount Piperacillin-Tazobactam 3 50 .375 gm In Dextrose/Water 1 50ml.bag @ 12.5 mls/hr IVPB Q8HR REBA Rx#: [id number] Sodium Chloride 0.9% 1, 200 000 ml @ 50 mls/hr IV . Q20H REBA Rx#:[id number] Oral 120 Output: Urine 75 Other: Voiding Method Urinal Urinal Incontinent Incontinent # Voids 2 - Exam General appearance: The patient is alert, agitated in no acute distress. Jaundice. HET: Head is normocephalic and atraumatic. Pupils are equal and reactive. Sclerae icterus. Oropharynx is clear without lesions. Neck: Supple without lymphadenopathy. Trachea midline. Heart: S1 S2. Regular rate and rhythm. Lungs: Poor inspiratory effort. Diminished in bases bilaterally. No crackles or wheezes are heard. Abdomen: Soft, nontender, with bloatedness distention hypoactive bowel sounds. No peritoneal signs. No palpable organomegaly or masses. Extremities: Normal skin color and turgor. No cyanosis, rash, ulceration, clubbing, or edema. Radial and pedal pulses are 2/4 bilaterally. Elise removed a clear yellow urine in collection container. Neurological: No focal deficits. Strength and sensation are grossly intact. - Labs CBC & Chem 7: 09/18/17 04:06 09/18/17 07:56 Labs: Abnormal Lab Results - Last 24 Hours (Table) 09/17/17 09/17/17 09/17/17 Range/Units 07:41 12:08 17:26 RBC (4.30-5.90) m/uL Hgb (13.0-17.5) gm/dL Hct (39.0-53.0) % Plt Count (150-450) k/uL Lymphocytes # (1.0-4.8) k/uL ABG pH (7.35-7.45) ABG pCO2 (35-45) mmHg ABG pO2 (83-108) mmHg ABG O2 Saturation (94-97) % Sodium (137-145) mmol/L Potassium (3.5-5.1) mmol/L Carbon Dioxide (22-30) mmol/L BUN (9-20) mg/dL Creatinine (0.66-1.25) mg/dL Glucose (74-99) mg/dL POC Glucose (mg/dL) 192 H 285 H (75-99) mg/dL Plasma Lactic Acid Fermin (0.7-2.0) mmol/L Total Bilirubin (0.2-1.3) mg/dL Alkaline Phosphatase (38-126) U/L Albumin (3.5-5.0) g/dL Amylase (30-110) U/L Lipase (23-300) U/L CA 19-9 Antigen 50.6 H (0.0-34.9) U/mL 09/17/17 09/18/17 09/18/17 Range/Units 20:02 04:04 04:06 RBC (4.30-5.90) m/uL Hgb (13.0-17.5) gm/dL Hct (39.0-53.0) % Plt Count (150-450) k/uL Lymphocytes # (1.0-4.8) k/uL ABG pH 7.27 L (7.35-7.45) ABG pCO2 48 H (35-45) mmHg ABG pO2 62 L (83-108) mmHg ABG O2 Saturation 91.0 L (94-97) % Sodium 135 L (137-145) mmol/L Potassium (3.5-5.1) mmol/L Carbon Dioxide 20 L (22-30) mmol/L BUN 50 H (9-20) mg/dL Creatinine 2.10 H (0.66-1.25) mg/dL Glucose 116 H (74-99) mg/dL POC Glucose (mg/dL) 276 H (75-99) mg/dL Plasma Lactic Acid Fermin (0.7-2.0) mmol/L Total Bilirubin 4.5 H (0.2-1.3) mg/dL Alkaline Phosphatase 307 H (38-126) U/L Albumin 3.2 L (3.5-5.0) g/dL Amylase (30-110) U/L Lipase (23-300) U/L CA 19-9 Antigen (0.0-34.9) U/mL 09/18/17 09/18/17 09/18/17 Range/Units 04:06 04:06 07:17 RBC 3.96 L (4.30-5.90) m/uL Hgb 12.2 L (13.0-17.5) gm/dL Hct 37.7 L (39.0-53.0) % Plt Count 80 L (150-450) k/uL Lymphocytes # 0.7 L (1.0-4.8) k/uL ABG pH (7.35-7.45) ABG pCO2 (35-45) mmHg ABG pO2 (83-108) mmHg ABG O2 Saturation (94-97) % Sodium (137-145) mmol/L Potassium (3.5-5.1) mmol/L Carbon Dioxide (22-30) mmol/L BUN (9-20) mg/dL Creatinine (0.66-1.25) mg/dL Glucose (74-99) mg/dL POC Glucose (mg/dL) 132 H (75-99) mg/dL Plasma Lactic Acid Fermin 0.6 L (0.7-2.0) mmol/L Total Bilirubin (0.2-1.3) mg/dL Alkaline Phosphatase (38-126) U/L Albumin (3.5-5.0) g/dL Amylase (30-110) U/L Lipase (23-300) U/L CA 19-9 Antigen (0.0-34.9) U/mL 09/18/17 09/18/17 09/18/17 Range/Units 07:46 07:47 07:56 RBC (4.30-5.90) m/uL Hgb (13.0-17.5) gm/dL Hct (39.0-53.0) % Plt Count (150-450) k/uL Lymphocytes # (1.0-4.8) k/uL ABG pH 7.29 L (7.35-7.45) ABG pCO2 46 H (35-45) mmHg ABG pO2 75 L (83-108) mmHg ABG O2 Saturation (94-97) % Sodium 136 L (137-145) mmol/L Potassium 5.2 H (3.5-5.1) mmol/L Carbon Dioxide 20 L (22-30) mmol/L BUN 52 H (9-20) mg/dL Creatinine 2.18 H (0.66-1.25) mg/dL Glucose 124 H (74-99) mg/dL POC Glucose (mg/dL) (75-99) mg/dL Plasma Lactic Acid Fermin (0.7-2.0) mmol/L Total Bilirubin 4.3 H (0.2-1.3) mg/dL Alkaline Phosphatase 304 H (38-126) U/L Albumin 3.1 L (3.5-5.0) g/dL Amylase 185 H (30-110) U/L Lipase 1194 H (23-300) U/L CA 19-9 Antigen (0.0-34.9) U/mL Microbiology - Last 24 Hours (Table) 09/16/17 09:32 Urine Culture - Preliminary Urine,Voided 09/15/17 13:20 Blood Culture - Preliminary Blood No Growth after 48 hours Assessment and Plan (1) Acute pancreatitis Narrative/Plan: 72-year-old male admitted with acute abdominal pain elevated pancreatic and liver enzymes consistent with acute moderate pancreatitis. No mentioning of gallstones on ultrasound or CAT scan with elevated hyperbilirubinemia and creatinine. Current Visit: Yes Status: Acute Code(s): K85.90 - ACUTE PANCREATITIS WITHOUT NECROSIS OR INFECTION, UNSP SNOMED Code(s): 900950231 (2) Elevated serum creatinine Narrative/Plan: Acute kidney injury most likely acute tubular necrosis nonoliguric Current Visit: Yes Status: Acute Code(s): R79.89 - OTHER SPECIFIED ABNORMAL FINDINGS OF BLOOD CHEMISTRY SNOMED Code(s): 832761826 (3) Elevated liver enzymes Current Visit: Yes Status: Acute Code(s): R74.8 - ABNORMAL LEVELS OF OTHER SERUM ENZYMES SNOMED Code(s): 529531273 (4) Jaundice Narrative/Plan: Elevated bilirubin suspect from peripancreatic edema slowly improving Current Visit: Yes Status: Acute Code(s): R17 - UNSPECIFIED JAUNDICE SNOMED Code(s): 83468881 (5) Appendicolith Narrative/Plan: Possible early acute appendicitis being monitored closely by general surgery presently without fever or abdominal pain. Current Visit: Yes Status: Acute Code(s): K38.9 - DISEASE OF APPENDIX, UNSPECIFIED SNOMED Code(s): 16698238 (6) Obesity (BMI 30-39.9) Current Visit: Yes Status: Chronic Code(s): E66.9 - OBESITY, UNSPECIFIED SNOMED Code(s): 971895649 (7) Hyperkalemia Current Visit: Yes Status: Acute Code(s): E87.5 - HYPERKALEMIA SNOMED Code (s): 68817196 (8) Diabetes mellitus Current Visit: Yes Status: Chronic Code(s): E11.9 - TYPE 2 DIABETES MELLITUS WITHOUT COMPLICATIONS SNOMED Code(s): 85244632 (9) Hepatitis C antibody test positive Current Visit: Yes Status: Acute Code(s): R76.8 - OTHER SPECIFIED ABNORMAL IMMUNOLOGICAL FINDINGS IN SERUM SNOMED Code(s): 163167179 Plan: 1. Additional hepatitis C serology pending. Hepatitis screen reviewed. AFP requested. Not candidate for MRCP secondary to pacemaker. Clinically ERCP is not indicated at this time total bilirubin is slowly improving but also consideration for patient's poor inspiratory effort required BiPAP earlier this morning as well as large body habitus would certainly compromise his pulmonary status with prone positioning for ERCP. These recommendations were discussed with general surgeon Dr. Evan Woodall as well as attending Dr. Sigala. 2. Continue with Intravenous hydration with electrolyte monitoring. Nephrology recommendations reviewed and appreciated. 3. Dulcolax suppository ordered. Clear liquid diet as tolerated. Parenteral nutrition was discussed with attending if patient is not able to tolerate a diet within the next 24-48 hours. 4. Will follow closely with you. Assessment and plan a care discussed with Dr. Macdonald
[2017-09-18 11:28] LABS: Glucose,Whole Blood 129 mg/dL (75-99)
[2017-09-18 14:03] LABS: Appearance,Urine Clear (Clear); Bacteria,Urine Rare /hpf; Bilirubin,Urine Negative (Negative); Blood,Urine Moderate (Negative); Color,Urine Yellow; Glucose,Urine (UA) Negative (Negative); Hyaline Casts,Urine 3 /lpf (0-2); Ketones,Urine Negative (Negative); Leukocyte Esterase,Urine Negative (Negative); Mucus,Urine Rare /hpf; Nitrite,Urine Negative (Negative); Protein,Urine Negative (Negative); RBC,Urine 19 /hpf (0-5); Specific Gravity,Urine 1.007 (1.001-1.035); Urobilinogen,Urine <2.0 mg/dL (<2.0); WBC,Urine 1 /hpf (0-5)
--- NOTE | 2017-09-18 14:30 | P.PN ---
Subjective Progress Note Date: 09/18/17 72-year-old male seen and examined this morning at the bedside. Events noted during the night. Patient reportedly was experiencing increase difficulty in breathing with diminished breath sounds patient was given Lasix and placed on BiPAP. This morning the lung sabillon are clear abdomen remains distended firm with a few hypoactive bowel tones Nursing reports they found Elise catheter with the balloon intact between the patient's legs patient was totally unaware that he had pulled the Elise catheter out was not experiencing any pain With the event patient continues to adamantly deny any abdominal pain any nausea or vomiting. With palpitation to the abdominal wall no facial grimacing. Patients being followed by GI service. Patient was scheduled for an MRI yesterday this was not able to be completed given the patient has a history of a pacemaker. Objective - Vital Signs Vital signs: Vital Signs Temp 98.6 F 09/18/17 07:00 Pulse 65 09/18/17 08:00 Resp 19 09/18/17 08:00 BP 177/91 09/18/17 07:00 Pulse Ox 95 09/18/17 07:00 Intake & Output 09/17/17 09/18/17 09/18/17 18:59 06:59 18:59 Intake Total 650 120 Output Total 75 250 Balance 650 45 -250 Weight 110 kg 110 kg Intake: IV 400 0.9@100 400 Intake, IV Titration 250 Amount Piperacillin-Tazobactam 3 50 .375 gm In Dextrose/Water 1 50ml.bag @ 12.5 mls/hr IVPB Q8HR REBA Rx#: [id number] Sodium Chloride 0.9% 1, 200 000 ml @ 50 mls/hr IV . Q20H REBA Rx#:[id number] Oral 120 Output: Urine 75 250 Uretheral (Elise) 250 Other: Voiding Method Urinal Urinal Urinal Incontinent Incontinent Indwelling Catheter # Voids 2 - Exam Physical exam: 72-year-old male more confused this morning and prior assessment oriented to self and place Lungs posterior diminished at the bases not able to appreciate any crackles no cough noted currently on a nasal cannula at 3 L keeping a sat greater than 90% no cough noted Heart S1-S2 audible and regular Abdomen firm distended with bloating active bowel tones noted patient is adamant and gets upset when questioning about abdominal pain stating stop asking that I don't have any pain in my abdomen no facial grimacing with palpitation to the abdominal wall no guarding no nausea no vomiting Extremity no edema noted tenderness to the bilateral lower extreme - Labs CBC & Chem 7: 09/18/17 04:06 09/18/17 07:56 Labs: Abnormal Lab Results - Last 24 Hours (Table) 09/17/17 09/17/17 09/17/17 Range/Units 07:41 17:26 20:02 RBC (4.30-5.90) m/uL Hgb (13.0-17.5) gm/dL Hct (39.0-53.0) % Plt Count (150-450) k/uL Lymphocytes # (1.0-4.8) k/uL ABG pH (7.35-7.45) ABG pCO2 (35-45) mmHg ABG pO2 (83-108) mmHg ABG O2 Saturation (94-97) % Sodium (137-145) mmol/L Potassium (3.5-5.1) mmol/L Carbon Dioxide (22-30) mmol/L BUN (9-20) mg/dL Creatinine (0.66-1.25) mg/dL Glucose (74-99) mg/dL POC Glucose (mg/dL) 285 H 276 H (75-99) mg/dL Plasma Lactic Acid Fermin (0.7-2.0) mmol/L Total Bilirubin (0.2-1.3) mg/dL Alkaline Phosphatase (38-126) U/L Ammonia (<30) umol/L Albumin (3.5-5.0) g/dL Amylase (30-110) U/L Lipase (23-300) U/L CA 19-9 Antigen 50.6 H (0.0-34.9) U/mL Urine Blood (Negative) Urine RBC (0-5) /hpf Urine Bacteria (None) /hpf Hyaline Casts (0-2) /lpf Urine Mucus (None) /hpf 09/18/17 09/18/17 09/18/17 Range/Units 04:04 04:06 04:06 RBC (4.30-5.90) m/uL Hgb (13.0-17.5) gm/dL Hct (39.0-53.0) % Plt Count (150-450) k/uL Lymphocytes # (1.0-4.8) k/uL ABG pH 7.27 L (7.35-7.45) ABG pCO2 48 H (35-45) mmHg ABG pO2 62 L (83-108) mmHg ABG O2 Saturation 91.0 L (94-97) % Sodium 135 L (137-145) mmol/L Potassium (3.5-5.1) mmol/L Carbon Dioxide 20 L (22-30) mmol/L BUN 50 H (9-20) mg/dL Creatinine 2.10 H (0.66-1.25) mg/dL Glucose 116 H (74-99) mg/dL POC Glucose (mg/dL) (75-99) mg/dL Plasma Lactic Acid Fermin 0.6 L (0.7-2.0) mmol/L Total Bilirubin 4.5 H (0.2-1.3) mg/dL Alkaline Phosphatase 307 H (38-126) U/L Ammonia (<30) umol/L Albumin 3.2 L (3.5-5.0) g/dL Amylase (30-110) U/L Lipase (23-300) U/L CA 19-9 Antigen (0.0-34.9) U/mL Urine Blood (Negative) Urine RBC (0-5) /hpf Urine Bacteria (None) /hpf Hyaline Casts (0-2) /lpf Urine Mucus (None) /hpf 09/18/17 09/18/17 09/18/17 Range/Units 04:06 07:17 07:46 RBC 3.96 L (4.30-5.90) m/uL Hgb 12.2 L (13.0-17.5) gm/dL Hct 37.7 L (39.0-53.0) % Plt Count 80 L (150-450) k/uL Lymphocytes # 0.7 L (1.0-4.8) k/uL ABG pH (7.35-7.45) ABG pCO2 (35-45) mmHg ABG pO2 (83-108) mmHg ABG O2 Saturation (94-97) % Sodium (137-145) mmol/L Potassium (3.5-5.1) mmol/L Carbon Dioxide (22-30) mmol/L BUN (9-20) mg/dL Creatinine (0.66-1.25) mg/dL Glucose (74-99) mg/dL POC Glucose (mg/dL) 132 H (75-99) mg/dL Plasma Lactic Acid Fermin (0.7-2.0) mmol/L Total Bilirubin (0.2-1.3) mg/dL Alkaline Phosphatase (38-126) U/L Ammonia (<30) umol/L Albumin (3.5-5.0) g/dL Amylase 185 H (30-110) U/L Lipase 1194 H (23-300) U/L CA 19-9 Antigen (0.0-34.9) U/mL Urine Blood (Negative) Urine RBC (0-5) /hpf Urine Bacteria (None) /hpf Hyaline Casts (0-2) /lpf Urine Mucus (None) /hpf 09/18/17 09/18/17 09/18/17 Range/Units 07:47 07:56 11:26 RBC (4.30-5.90) m/uL Hgb (13.0-17.5) gm/dL Hct (39.0-53.0) % Plt Count (150-450) k/uL Lymphocytes # (1.0-4.8) k/uL ABG pH 7.29 L (7.35-7.45) ABG pCO2 46 H (35-45) mmHg ABG pO2 75 L (83-108) mmHg ABG O2 Saturation (94-97) % Sodium 136 L (137-145) mmol/L Potassium 5.2 H (3.5-5.1) mmol/L Carbon Dioxide 20 L (22-30) mmol/L BUN 52 H (9-20) mg/dL Creatinine 2.18 H (0.66-1.25) mg/dL Glucose 124 H (74-99) mg/dL POC Glucose (mg/dL) 129 H (75-99) mg/dL Plasma Lactic Acid Fermin (0.7-2.0) mmol/L Total Bilirubin 4.3 H (0.2-1.3) mg/dL Alkaline Phosphatase 304 H (38-126) U/L Ammonia (<30) umol/L Albumin 3.1 L (3.5-5.0) g/dL Amylase (30-110) U/L Lipase (23-300) U/L CA 19-9 Antigen (0.0-34.9) U/mL Urine Blood (Negative) Urine RBC (0-5) /hpf Urine Bacteria (None) /hpf Hyaline Casts (0-2) /lpf Urine Mucus (None) /hpf 09/18/17 09/18/17 Range/Units 12:46 13:45 RBC (4.30-5.90) m/uL Hgb (13.0-17.5) gm/dL Hct (39.0-53.0) % Plt Count (150-450) k/uL Lymphocytes # (1.0-4.8) k/uL ABG pH (7.35-7.45) ABG pCO2 (35-45) mmHg ABG pO2 (83-108) mmHg ABG O2 Saturation (94-97) % Sodium (137-145) mmol/L Potassium (3.5-5.1) mmol/L Carbon Dioxide (22-30) mmol/L BUN (9-20) mg/dL Creatinine (0.66-1.25) mg/dL Glucose (74-99) mg/dL POC Glucose (mg/dL) (75-99) mg/dL Plasma Lactic Acid Fermin (0.7-2.0) mmol/L Total Bilirubin (0.2-1.3) mg/dL Alkaline Phosphatase (38-126) U/L Ammonia 49 H (<30) umol/L Albumin (3.5-5.0) g/dL Amylase (30-110) U/L Lipase (23-300) U/L CA 19-9 Antigen (0.0-34.9) U/mL Urine Blood Moderate H (Negative) Urine RBC 19 H (0-5) /hpf Urine Bacteria Rare H (None) /hpf Hyaline Casts 3 H (0-2) /lpf Urine Mucus Rare H (None) /hpf Microbiology - Last 24 Hours (Table) 09/16/17 09:32 Urine Culture - Final Urine,Voided 09/15/17 13:20 Blood Culture - Preliminary Blood No Growth after 48 hours Assessment and Plan Assessment: Impression Present on admission abdominal pain CAT scan abdomen pelvis reported appendicolith possible acute early appendicitis not ruled out no fever no white count Hyperkalemia Obesity BMI 36 Type 2 diabetes with episodes of hyperglycemia Prior history of alcohol intake Depressive disorder nonspecified Present on admission elevated lipase and amylase consistent with acute pancreatitis Acute kidney injury Hyperkalemia CAT scan abdomen and pelvis incidental finding appendicoth with no evidence of an acute surgical abdomen no fever no white count Acute exacerbation of systolic heart failure EF 20% status post ICD likely due to fluid overload Plan Patient is felt to be at a moderate to high risk for any surgical intervention given patient's comorbidities given patient's systolic heart failure exacerbation with worsening of the renal status with fluid overload No plan for a surgical intervention at this time IV fluid for hydration Will follow labs DVT and GI prophylaxis GI service indicates clinically ERCP is not indicated at this time total bilirubin slowly improving Dulcolax suppository ordered now Defer to the attending to address medical issues Parental nutrition will be initiated if not able to tolerate a diet within the next 24-40 hours defer to the attending Progress note dictated for The above impression and plan of care have been discussed and directed by signing physician. Deepa Richardson nurse practitioner acting as scribe for signing physician.
[2017-09-18] MEDS: HEPARIN SODIUM,PORCINE 5,000 UNIT/ML 1 ML VIAL SQ SCH ×2 (16:21→20:59)
--- NOTE | 2017-09-18 16:29 | PN ---
PROGRESS NOTE Patient is seen for followup for acute kidney injury. Overnight the patient was quite short of breath. He had a Elise catheter placed. However, he had only about 75 mL of urine output. Patient received another extra dose of Lasix last night. He did go down for an x-ray which showed evidence of left lower lobe infiltrate. There was a prominent interstitial markings consistent with pulmonary edema on the x-ray done at 3:30 am. The patient has been refusing BiPAP. This morning I gave him 80 mg of Lasix IV push and he has diuresed. According to nursing staff, he is breathing easier. EXAMINATION: Blood pressure is 177/91, heart rate 65 per minute. Patient is afebrile. Examination of the heart: S1, S2. Examination of lungs: Bilateral breath sounds are heard. Crackles noted at the bases. Abdomen is soft, distended, nontender. Examination lower extremities shows trace edema bilaterally. 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 LABS: Sodium 136, potassium 5.2, chloride 107, BUN 62, serum creatinine 2.1, lipase is 1194. ASSESSMENT: 1. Acute kidney injury, acute tubular necrosis, currently nonoliguric. Responded to higher dose of Lasix. Will repeat another dose of Lasix this evening and continue off of IV fluids. There are no nephrotoxic agents on board and continue with the indwelling Elise catheter. I will switch the Protonix to Pepcid. 2. Volume overload, responded to 80 mg of Lasix this morning. We will repeat another dose in the evening. Continue off of IV fluids. 3. Hypertension, maintained on Coreg. Add hydralazine if blood pressure remains elevated. 4. Acute pancreatitis with serum lipase still remaining elevated. No evidence of biliary obstruction noted on CT scan. 5. Mild hyperkalemia. Expect improvement with increased diuresis. A MRI CT was initially planned, but cannot be done as the patient has had a pacemaker. 6. Positive hepatitis C antibody. PLAN: Continue off of IV fluids. Repeat Lasix this evening. Monitor blood pressure more closely. Consider switching Protonix to IV Pepcid. MMODL / IJN: [id number] /
[2017-09-18 17:12] LABS: Glucose,Whole Blood 151 mg/dL (75-99)
[2017-09-18 19:44] LABS: Glucose,Whole Blood 189 mg/dL (75-99)
[2017-09-18] MEDS: INSULIN DETEMIR 100 UNIT/ML 10 ML VIAL SQ SCH (20:59)
[2017-09-19 08:18] LABS: Basophils % (A) 1 %; Eosinophils # (A) 0.1 k/uL (0-0.7); Eosinophils % (A) 1 %; HGB 12.3 gm/dL (13.0-17.5); Lymphocytes # (A) 0.9 k/uL (1.0-4.8); Lymphocytes % (A) 15 %; MCH 30.5 pg (25.0-35.0); MCHC 32.3 g/dL (31.0-37.0); MCV 94.4 fL (80.0-100.0); Mean Platelet Volume 11.5; Monocytes # (A) 0.4 k/uL (0-1.0); Monocytes % (A) 7 %; Neutrophils # (A) 4.2 k/uL (1.3-7.7); Neutrophils % (A) 73 %; Platelet Count 114 k/uL (150-450); RBC 4.03 m/uL (4.30-5.90); RDW 13.1 % (11.5-15.5); WBC 5.8 k/uL (3.8-10.6)
[2017-09-19 08:18] LABS: Glucose,Whole Blood 150 mg/dL (75-99)
[2017-09-19 08:19] LABS: Albumin 3.2 g/dL (3.5-5.0); Calcium 8.7 mg/dL (8.4-10.2); Potassium 5.2 mmol/L (3.5-5.1); Total Bilirubin 3.1 mg/dL (0.2-1.3); Total Protein 6.8 g/dL (6.3-8.2)
[2017-09-19] MEDS: HEPARIN SODIUM,PORCINE 5,000 UNIT/ML 1 ML VIAL SQ SCH ×3 (08:45→22:16)
[2017-09-19] MEDS: INSULIN ASPART 100 UNIT/ML 1 ML 10 ML VIAL SQ SCH ×4 (08:45→22:16)
[2017-09-19] MEDS: CARVEDILOL 12.5 MG TAB PO SCH ×2 (08:45→17:40)
[2017-09-19] MEDS: ISOSORBIDE MONONITRATE ER 30 MG TAB.ER.24H PO SCH (08:45)
[2017-09-19] MEDS: PANTOPRAZOLE 40 MG/10 ML VIAL IVP SCH (08:45)
--- NOTE | 2017-09-19 09:31 | P.PN ---
Subjective Progress Note Date: 09/19/17 Principal diagnosis: Acute pancreatitis 72-year-old gentleman with a history of diabetes mellitus kidney disease obesity presented with acute abdominal pain elevated pancreatic liver enzymes consistent with acute pancreatitis. No stones mentioned on ultrasound abdomen/ CT. CT abdomen and pelvis without IV contrast reported appendicolith possible early appendicitis could not be excluded and he's been monitored closely by general surgery since admission. Afebrile. Elise catheter inserted the other day patient has pulled on it more than once presently with blood tinged urine. Increased creatinine over the last few days evaluation by nephrology completed; creatinine remains at 2.1 today. Slow improvement in liver enzymes; total bilirubin 3.1 AST 48. ALT 38. Alkaline phosphatase 305. Lipase 1591. Amylase 199. CA-19-9 50.6. WBC 5.8. Hemoglobin 12.3. Hepatitis screen positive hepatitis C IgG antibody; additional hepatitis C serology pending. Ammonia yesterday 49. Surveillance CT abdomen and pelvis without contrast 3 days ago reported findings prior exam correlate to exclude appendicitis. Interval development of small pleural effusions and local atelectasis. Cardiomegaly. Mild prominence of the pancreatic head. Intravenous antibiotics discontinued. MRI unable to be completed secondary to history of pacemaker. Patient is sitting up in bedside chair this morning more alert, conversive not as agitated. Bowel movement 1 last night per nursing. Objective - Vital Signs Vital signs: Vital Signs Temp 97.9 F 09/19/17 07:00 Pulse 51 L 09/19/17 08:00 Resp 22 09/19/17 09:08 BP 170/81 09/19/17 07:00 Pulse Ox 93 L 09/19/17 09:08 Intake & Output 09/18/17 09/19/17 09/19/17 18:59 06:59 18:59 Output Total 250 Balance -250 Weight 110 kg 113 kg Output: Urine 250 Uretheral (Elise) 250 Other: Voiding Method Urinal Indwelling Catheter Indwelling Catheter Indwelling Catheter # Bowel Movements 1 - Exam General appearance: The patient is alert, agitated in no acute distress. Jaundice. HET: Head is normocephalic and atraumatic. Pupils are equal and reactive. Sclerae icterus. Oropharynx is clear without lesions. Neck: Supple without lymphadenopathy. Trachea midline. Heart: S1 S2. Regular rate and rhythm. Lungs: Poor inspiratory effort. Diminished in bases bilaterally. No crackles or wheezes are heard. Abdomen: Soft, nontender, with bloatedness distention hypoactive bowel sounds. No peritoneal signs. No palpable organomegaly or masses. Extremities: Normal skin color and turgor. No cyanosis, rash, ulceration, clubbing, or edema. Radial and pedal pulses are 2/4 bilaterally. Elise with blood tinged urine. Neurological: No focal deficits. Strength and sensation are grossly intact. - Labs CBC & Chem 7: 09/19/17 07:09 09/19/17 07:09 Labs: Abnormal Lab Results - Last 24 Hours (Table) 09/18/17 09/18/17 09/18/17 Range/Units 07:46 11:26 12:46 RBC (4.30-5.90) m/uL Hgb (13.0-17.5) gm/dL Hct (39.0-53.0) % Potassium (3.5-5.1) mmol/L Carbon Dioxide (22-30) mmol/L BUN (9-20) mg/dL Creatinine (0.66-1.25) mg/dL Glucose (74-99) mg/dL POC Glucose (mg/dL) 129 H (75-99) mg/dL Total Bilirubin (0.2-1.3) mg/dL Alkaline Phosphatase (38-126) U/L Ammonia 49 H (<30) umol/L Albumin (3.5-5.0) g/dL Amylase 185 H (30-110) U/L Lipase 1194 H (23-300) U/L Urine Blood (Negative) Urine RBC (0-5) /hpf Urine Bacteria (None) /hpf Hyaline Casts (0-2) /lpf Urine Mucus (None) /hpf 09/18/17 09/18/17 09/18/17 Range/Units 13:45 17:11 19:42 RBC (4.30-5.90) m/uL Hgb (13.0-17.5) gm/dL Hct (39.0-53.0) % Potassium (3.5-5.1) mmol/L Carbon Dioxide (22-30) mmol/L BUN (9-20) mg/dL Creatinine (0.66-1.25) mg/dL Glucose (74-99) mg/dL POC Glucose (mg/dL) 151 H 189 H (75-99) mg/dL Total Bilirubin (0.2-1.3) mg/dL Alkaline Phosphatase (38-126) U/L Ammonia (<30) umol/L Albumin (3.5-5.0) g/dL Amylase (30-110) U/L Lipase (23-300) U/L Urine Blood Moderate H (Negative) Urine RBC 19 H (0-5) /hpf Urine Bacteria Rare H (None) /hpf Hyaline Casts 3 H (0-2) /lpf Urine Mucus Rare H (None) /hpf 09/19/17 09/19/17 09/19/17 Range/Units 07:09 07:09 08:06 RBC 4.03 L (4.30-5.90) m/uL Hgb 12.3 L (13.0-17.5) gm/dL Hct 38.0 L (39.0-53.0) % Potassium 5.2 H (3.5-5.1) mmol/L Carbon Dioxide 20 L (22-30) mmol/L BUN 57 H (9-20) mg/dL Creatinine 2.18 H (0.66-1.25) mg/dL Glucose 142 H (74-99) mg/dL POC Glucose (mg/dL) 150 H (75-99) mg/dL Total Bilirubin 3.1 H (0.2-1.3) mg/dL Alkaline Phosphatase 305 H (38-126) U/L Ammonia (<30) umol/L Albumin 3.2 L (3.5-5.0) g/dL Amylase 199 H (30-110) U/L Lipase 1591 H (23-300) U/L Urine Blood (Negative) Urine RBC (0-5) /hpf Urine Bacteria (None) /hpf Hyaline Casts (0-2) /lpf Urine Mucus (None) /hpf Microbiology - Last 24 Hours (Table) 09/15/17 13:20 Blood Culture - Preliminary Blood No Growth after 72 hours 09/16/17 09:32 Urine Culture - Final Urine,Voided Assessment and Plan (1) Acute pancreatitis Narrative/Plan: 72-year-old male admitted with acute abdominal pain elevated pancreatic and liver enzymes consistent with acute moderate to severe pancreatitis. No mentioning of gallstones on ultrasound or CAT scan with elevated hyperbilirubinemia and creatinine. Current Visit: Yes Status: Acute Code(s): K85.90 - ACUTE PANCREATITIS WITHOUT NECROSIS OR INFECTION, UNSP SNOMED Code(s): 493019754 (2) Elevated serum creatinine Narrative/Plan: Acute kidney injury most likely acute tubular necrosis nonoliguric Current Visit: Yes Status: Acute Code(s): R79.89 - OTHER SPECIFIED ABNORMAL FINDINGS OF BLOOD CHEMISTRY SNOMED Code(s): 975241599 (3) Elevated liver enzymes Current Visit: Yes Status: Acute Code(s): R74.8 - ABNORMAL LEVELS OF OTHER SERUM ENZYMES SNOMED Code(s): 498201773 (4) Jaundice Narrative/Plan: Elevated bilirubin suspect from peripancreatic edema improving Current Visit: Yes Status: Acute Code(s): R17 - UNSPECIFIED JAUNDICE SNOMED Code(s): 43922427 (5) Appendicolith Narrative/Plan: Possible early acute appendicitis being monitored closely by general surgery presently without fever or abdominal pain. Current Visit: Yes Status: Acute Code(s): K38.9 - DISEASE OF APPENDIX, UNSPECIFIED SNOMED Code(s): 55334871 (6) Obesity (BMI 30-39.9) Current Visit: Yes Status: Chronic Code(s): E66.9 - OBESITY, UNSPECIFIED SNOMED Code(s): 100322572 (7) Hyperkalemia Current Visit: Yes Status: Acute Code(s): E87.5 - HYPERKALEMIA SNOMED Code (s): 26003087 (8) Diabetes mellitus Current Visit: Yes Status: Chronic Code(s): E11.9 - TYPE 2 DIABETES MELLITUS WITHOUT COMPLICATIONS SNOMED Code(s): 67666277 (9) Hepatitis C antibody test positive Current Visit: Yes Status: Acute Code(s): R76.8 - OTHER SPECIFIED ABNORMAL IMMUNOLOGICAL FINDINGS IN SERUM SNOMED Code(s): 350117264 (10) Hyperammonemia Narrative/Plan: Possible underlying liver disease Current Visit: Yes Status: Acute Code(s): E72.20 - DISORDER OF UREA CYCLE METABOLISM, UNSPECIFIED SNOMED Code(s): 7829869 Plan: 1. Lactulose 20 g twice a day hold for bowel movements more than 3 times daily. 2. Diet advancement per surgery. 3. Continue with supportive measures. ERCP contraindicated at this time total bilirubin is improving. 4. Will follow closely with you. Assessment and plan of care discussed with Dr. Crystal
[2017-09-19 10:45] LABS: Toxic Granulation Present
[2017-09-19] MEDS ORDERED: FUROSEMIDE 10 MG/ML 10 ML VIAL IV STA (11:02)
[2017-09-19 11:33] LABS: Glucose,Whole Blood 287 mg/dL (75-99)
--- NOTE | 2017-09-19 12:01 | P.GSCN ---
History of Present Illness Consult date: 09/19/17 Reason for Consult: gross hematuria History of present illness: the patient is a 72-year-old male who developed abdominal pain and was evaluated in the emergency room and discovered to have a markedly elevated lipase consistent with acute pancreatitis. Patient's pain has improved although he still has some intermittent mid abdominal discomfort. He was noted to have an elevated creatinine however a computed tomography scan of the abdomen showed no evidence of hydronephrosis. Bladder scan was done on 09/17 and reportedly showed no urine in the bladder. Sometime yesterday morning a catheter was inserted but only drained 75 mL. The patient became confused and removed his catheter with the balloon inflated. The catheter was reinserted and has drained brownish urine without clots since then. The patient's elevated creatinine was felt to be in part related to fluid overload and he has been diuresed with furosemide. I was asked to see the patient due to the gross hematuria. The patient has no previous history of gross hematuria. He says he usually voids every 2-4 hours during the day and once or twice at night. He describes a moderate urinary flow and feels he voids completely. Review of Systems All systems: negative (discomfort from his Elise catheter) Past Medical History Past Medical History: Chest Pain / Angina, Heart Failure, COPD, Diabetes Mellitus, Hyperlipidemia, Hypertension, Myocardial Infarction (NH), Osteoarthritis (OA) Additional Past Medical History / Comment(s): 06/07/15 Pt presented to [facility] ER EMS feeling weak and having mild headache and anterior neck pain. Symptoms began days ago. Pt being admitted with clinical impression of weakness, acute renal failure. PT last admitted to [facility] 01/24/15 with acute DKA, acute metabolic encephalitis from DKA, acute renal failure, severe hyperkalemia, pseudohyponatremia. 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 Last Myocardial Infarction Date:: 11/2013 History of Any Multi-Drug Resistant Organisms: None Reported Past Surgical History: Heart Catheterization, Pacemaker Additional Past Surgical History / Comment(s): CATARACTS TRAY EYES REMOVED. liver biopsy on 10-18-13, heart cath 2004 Past Anesthesia/Blood Transfusion Reactions: No Reported Reaction Type of Cardiac Device: Permanent Pacemaker Device Placement Date:: UNK Past Psychological History: Bipolar, Depression Smoking Status: Never smoker Past Alcohol Use History: Occasional Past Drug Use History: None Reported - Past Family History Mother Family Medical History: Cancer Sister(s) Family Medical History: Cancer Medications and Allergies Home Medications Medication Instructions Recorded Confirmed Type Nitroglycerin Sl Tabs [Nitrostat] 0.4 mg SUBLINGUAL Q5M PRN 11/28/13 09/13/17 History HYDROcodone/APAP 5-325MG [[place] 1 tab PO Q6H PRN 12/15/14 09/13/17 History 5-325] Carvedilol 25 mg PO AC-BID 01/24/15 09/13/17 History Docusate [Colace] 100 - 200 mg PO DAILY 06/07/15 09/13/17 History Isosorbide Mononitrate ER [Imdur] 30 mg PO DAILY #30 tab.er.24h 06/09/15 Rx Insulin Glargine [Lantus] 35 unit SQ QAM 01/01/17 09/13/17 History INSULIN LISPRO (humaLOG) [humaLOG] 8 - 21 units SQ AC-TID 09/13/17 09/13/17 History Ibuprofen [Motrin] 400 mg PO Q6HR PRN 09/13/17 09/13/17 History Losartan [Cozaar] 12.5 mg PO DAILY 09/13/17 09/13/17 History Spironolactone [Aldactone] 25 mg PO DAILY 09/13/17 09/13/17 History Allergies Allergy/AdvReac Type Severity Reaction Status Date / Time No Known Allergies Allergy Verified 09/13/17 11:35 Surgical - Exam Vital Signs Temp Pulse Resp BP Pulse Ox 97.9 F 57 L 20 212/98 99 09/13/17 05:33 09/13/17 05:33 09/13/17 05:33 09/13/17 05:33 09/13/17 05:33 - General well developed, well nourished, no distress, obese - Respiratory normal respiratory effort - Abdomen Abdomen: soft, non tender, no organomegaly - Genitourinary normal penis with no external lesions, testicles non-tender, other (a 16-Upper Sorbian Elise catheter is in place and is draining brownish colored urine. No clots are present) Results - Labs 09/19/17 07:09 09/19/17 07:09 Abnormal Lab Results - Last 24 Hours (Table) 09/18/17 09/18/17 09/18/17 Range/Units 12:46 13:45 17:11 RBC (4.30-5.90) m/uL Hgb (13.0-17.5) gm/dL Hct (39.0-53.0) % Plt Count (150-450) k/uL Lymphocytes # (1.0-4.8) k/uL Potassium (3.5-5.1) mmol/L Carbon Dioxide (22-30) mmol/L BUN (9-20) mg/dL Creatinine (0.66-1.25) mg/dL Glucose (74-99) mg/dL POC Glucose (mg/dL) 151 H (75-99) mg/dL Total Bilirubin (0.2-1.3) mg/dL Alkaline Phosphatase (38-126) U/L Ammonia 49 H (<30) umol/L Albumin (3.5-5.0) g/dL Amylase (30-110) U/L Lipase (23-300) U/L Urine Blood Moderate H (Negative) Urine RBC 19 H (0-5) /hpf Urine Bacteria Rare H (None) /hpf Hyaline Casts 3 H (0-2) /lpf Urine Mucus Rare H (None) /hpf 09/18/17 09/19/17 09/19/17 Range/Units 19:42 07:09 07:09 RBC 4.03 L (4.30-5.90) m/uL Hgb 12.3 L (13.0-17.5) gm/dL Hct 38.0 L (39.0-53.0) % Plt Count 114 L (150-450) k/uL Lymphocytes # 0.9 L (1.0-4.8) k/uL Potassium 5.2 H (3.5-5.1) mmol/L Carbon Dioxide 20 L (22-30) mmol/L BUN 57 H (9-20) mg/dL Creatinine 2.18 H (0.66-1.25) mg/dL Glucose 142 H (74-99) mg/dL POC Glucose (mg/dL) 189 H (75-99) mg/dL Total Bilirubin 3.1 H (0.2-1.3) mg/dL Alkaline Phosphatase 305 H (38-126) U/L Ammonia (<30) umol/L Albumin 3.2 L (3.5-5.0) g/dL Amylase 199 H (30-110) U/L Lipase 1591 H (23-300) U/L Urine Blood (Negative) Urine RBC (0-5) /hpf Urine Bacteria (None) /hpf Hyaline Casts (0-2) /lpf Urine Mucus (None) /hpf 09/19/17 09/19/17 Range/Units 08:06 11:25 RBC (4.30-5.90) m/uL Hgb (13.0-17.5) gm/dL Hct (39.0-53.0) % Plt Count (150-450) k/uL Lymphocytes # (1.0-4.8) k/uL Potassium (3.5-5.1) mmol/L Carbon Dioxide (22-30) mmol/L BUN (9-20) mg/dL Creatinine (0.66-1.25) mg/dL Glucose (74-99) mg/dL POC Glucose (mg/dL) 150 H 287 H (75-99) mg/dL Total Bilirubin (0.2-1.3) mg/dL Alkaline Phosphatase (38-126) U/L Ammonia (<30) umol/L Albumin (3.5-5.0) g/dL Amylase (30-110) U/L Lipase (23-300) U/L Urine Blood (Negative) Urine RBC (0-5) /hpf Urine Bacteria (None) /hpf Hyaline Casts (0-2) /lpf Urine Mucus (None) /hpf Microbiology - Last 24 Hours (Table) 09/15/17 13:20 Blood Culture - Preliminary Blood No Growth after 72 hours 09/16/17 09:32 Urine Culture - Final Urine,Voided Diabetes panel 09/19/17 Range/Units 07:09 Sodium 137 (137-145) mmol/L Potassium 5.2 H (3.5-5.1) mmol/L Chloride 106 (98-107) mmol/L Carbon Dioxide 20 L (22-30) mmol/L BUN 57 H (9-20) mg/dL Creatinine 2.18 H (0.66-1.25) mg/dL Glucose 142 H (74-99) mg/dL Calcium 8.7 (8.4-10.2) mg/dL AST 48 (17-59) U/L ALT 38 (21-72) U/L Alkaline Phosphatase 305 H (38-126) U/L Total Protein 6.8 (6.3-8.2) g/dL Albumin 3.2 L (3.5-5.0) g/dL Calcium panel 09/19/17 Range/Units 07:09 Calcium 8.7 (8.4-10.2) mg/dL Albumin 3.2 L (3.5-5.0) g/dL Pituitary panel 09/19/17 Range/Units 07:09 Sodium 137 (137-145) mmol/L Potassium 5.2 H (3.5-5.1) mmol/L Chloride 106 (98-107) mmol/L Carbon Dioxide 20 L (22-30) mmol/L BUN 57 H (9-20) mg/dL Creatinine 2.18 H (0.66-1.25) mg/dL Glucose 142 H (74-99) mg/dL Calcium 8.7 (8.4-10.2) mg/dL Adrenal panel 09/19/17 Range/Units 07:09 Sodium 137 (137-145) mmol/L Potassium 5.2 H (3.5-5.1) mmol/L Chloride 106 (98-107) mmol/L Carbon Dioxide 20 L (22-30) mmol/L BUN 57 H (9-20) mg/dL Creatinine 2.18 H (0.66-1.25) mg/dL Glucose 142 H (74-99) mg/dL Calcium 8.7 (8.4-10.2) mg/dL Total Bilirubin 3.1 H (0.2-1.3) mg/dL AST 48 (17-59) U/L ALT 38 (21-72) U/L Alkaline Phosphatase 305 H (38-126) U/L Total Protein 6.8 (6.3-8.2) g/dL Albumin 3.2 L (3.5-5.0) g/dL Assessment and Plan (1) Hematuria, gross Narrative/Plan: the patient's gross hematuria appears to be directly related to self removal of his Elise catheter with the balloon inflated. It may be worsened because he is also receiving minidose heparin for SBE prophylaxis. At the present time the patient does not appear to be active bleeding as the color of the urine is more consistent with blood that has been present in the bladder since yesterday. I would suggest the bladder be irrigated periodically to ensure that no large clots are present. Once the urine is clear and the need for close monitoring of the patient's urine output has ended his catheter can be removed. I would suggest that he have his postvoid residual checked via bladder scan within 3-5 hours after it is removed to ensure that he does not develop urinary retention related to swelling of the prostate. Current Visit: Yes Status: Acute Code(s): R31.0 - GROSS HEMATURIA SNOMED Code(s): 420507069
[2017-09-19] MEDS: LACTULOSE 20 GM/30 ML CUP PO SCH ×2 (12:22→22:16)
--- NOTE | 2017-09-19 12:48 | P.PN ---
Subjective Progress Note Date: 09/19/17 72-year-old seen and examined this morning. Is more awake and alert this morning chief complaint this morning is he's hungry. Did note the indwelling Elise catheter gross hematuria. Patient is adamant that he is not having any abdominal pain. Nursing reports patient did have a bowel movement last night. No reports the nausea vomiting. Patient's being followed by GI service. An ERCP is contraindicated at this time total bilirubin improving per recommendations GI service abdomen is significantly softer compared to prior assessment Patient has been followed by surgical service since admission following a CAT scan of the abdomen pelvis without contrast reported appendicolith possible early appendicitis could not be excluded being monitored closely by general surgery since admission. Objective - Vital Signs Vital signs: Vital Signs Temp 97.9 F 09/19/17 07:00 Pulse 51 L 09/19/17 08:00 Resp 22 09/19/17 09:08 BP 170/81 09/19/17 07:00 Pulse Ox 93 L 09/19/17 09:08 Intake & Output 09/18/17 09/19/17 09/19/17 18:59 06:59 18:59 Output Total 250 Balance -250 Weight 110 kg 113 kg 113 kg Output: Urine 250 Uretheral (Elise) 250 Other: Voiding Method Urinal Indwelling Catheter Indwelling Catheter Indwelling Catheter # Bowel Movements 1 - Exam Physical exam: 72-year-old male more awake and alert this morning cooperative oriented to self and place Lungs posterior decreased at the bases currently 2 L nasal cannula sats are 93% Heart S1-S2 audible and regular Abdomen softer less distended compared to prior assessment bowel tones active no nausea no vomiting indwelling Elise catheter hematuria noted Extremity no edema noted tenderness to the bilateral lower extreme - Labs CBC & Chem 7: 09/19/17 07:09 09/19/17 07:09 Labs: Abnormal Lab Results - Last 24 Hours (Table) 09/18/17 09/18/17 09/18/17 Range/Units 12:46 13:45 17:11 RBC (4.30-5.90) m/uL Hgb (13.0-17.5) gm/dL Hct (39.0-53.0) % Plt Count (150-450) k/uL Lymphocytes # (1.0-4.8) k/uL Potassium (3.5-5.1) mmol/L Carbon Dioxide (22-30) mmol/L BUN (9-20) mg/dL Creatinine (0.66-1.25) mg/dL Glucose (74-99) mg/dL POC Glucose (mg/dL) 151 H (75-99) mg/dL Total Bilirubin (0.2-1.3) mg/dL Alkaline Phosphatase (38-126) U/L Ammonia 49 H (<30) umol/L Albumin (3.5-5.0) g/dL Amylase (30-110) U/L Lipase (23-300) U/L Urine Blood Moderate H (Negative) Urine RBC 19 H (0-5) /hpf Urine Bacteria Rare H (None) /hpf Hyaline Casts 3 H (0-2) /lpf Urine Mucus Rare H (None) /hpf 09/18/17 09/19/17 09/19/17 Range/Units 19:42 07:09 07:09 RBC 4.03 L (4.30-5.90) m/uL Hgb 12.3 L (13.0-17.5) gm/dL Hct 38.0 L (39.0-53.0) % Plt Count 114 L (150-450) k/uL Lymphocytes # 0.9 L (1.0-4.8) k/uL Potassium 5.2 H (3.5-5.1) mmol/L Carbon Dioxide 20 L (22-30) mmol/L BUN 57 H (9-20) mg/dL Creatinine 2.18 H (0.66-1.25) mg/dL Glucose 142 H (74-99) mg/dL POC Glucose (mg/dL) 189 H (75-99) mg/dL Total Bilirubin 3.1 H (0.2-1.3) mg/dL Alkaline Phosphatase 305 H (38-126) U/L Ammonia (<30) umol/L Albumin 3.2 L (3.5-5.0) g/dL Amylase 199 H (30-110) U/L Lipase 1591 H (23-300) U/L Urine Blood (Negative) Urine RBC (0-5) /hpf Urine Bacteria (None) /hpf Hyaline Casts (0-2) /lpf Urine Mucus (None) /hpf 09/19/17 09/19/17 Range/Units 08:06 11:25 RBC (4.30-5.90) m/uL Hgb (13.0-17.5) gm/dL Hct (39.0-53.0) % Plt Count (150-450) k/uL Lymphocytes # (1.0-4.8) k/uL Potassium (3.5-5.1) mmol/L Carbon Dioxide (22-30) mmol/L BUN (9-20) mg/dL Creatinine (0.66-1.25) mg/dL Glucose (74-99) mg/dL POC Glucose (mg/dL) 150 H 287 H (75-99) mg/dL Total Bilirubin (0.2-1.3) mg/dL Alkaline Phosphatase (38-126) U/L Ammonia (<30) umol/L Albumin (3.5-5.0) g/dL Amylase (30-110) U/L Lipase (23-300) U/L Urine Blood (Negative) Urine RBC (0-5) /hpf Urine Bacteria (None) /hpf Hyaline Casts (0-2) /lpf Urine Mucus (None) /hpf Microbiology - Last 24 Hours (Table) 09/15/17 13:20 Blood Culture - Preliminary Blood No Growth after 72 hours 09/16/17 09:32 Urine Culture - Final Urine,Voided Assessment and Plan Assessment: Impression Present on admission abdominal pain CAT scan abdomen pelvis reported appendicolith possible acute early appendicitis not ruled out no fever no white count Hyperkalemia Obesity BMI 36 Type 2 diabetes with episodes of hyperglycemia Prior history of alcohol intake Depressive disorder nonspecified Present on admission elevated lipase and amylase consistent with acute pancreatitis Acute kidney injury Hyperkalemia CAT scan abdomen and pelvis incidental finding appendicoth with no evidence of an acute surgical abdomen no fever no white count Acute exacerbation of systolic heart failure EF 20% status post ICD likely due to fluid overload Gross hematuria likely related to self removal of his indwelling Elise catheter with the balloon inflated Plan Patient is felt to be at a moderate to high risk for any surgical intervention given patient's comorbidities given patient's systolic heart failure exacerbation with worsening of the renal status with fluid overload No plan for a surgical intervention at this time IV fluid for hydration Will follow with you DVT and GI prophylaxis GI service indicates clinically ERCP is not indicated at this time total bilirubin slowly improving Defer to the attending to address medical issues Parental nutrition will be initiated if not able to tolerate a diet within the next 24-40 hours defer to the attending Neurology's recommendations noted and appreciated Progress note dictated for The above impression and plan of care have been discussed and directed by signing physician. Deepa Richardson nurse practitioner acting as scribe for signing physician.
--- NOTE | 2017-09-19 12:52 | P.PN ---
Subjective Progress Note Date: 09/19/17 Principal diagnosis: patient is seen and examined in follow up for acute pancreatitis, acute renal failure, and CHF exacerbation Patient seen and examined today, patient continues to have some shortness of breath even while resting doing nothing, no wheezing no coughing no phlegm production. Denies any abdominal pain nausea or vomiting. Denies any chest pain dizziness or lightheadedness Patient developed hematuria after he had self removed the Enriquez catheter while the balloon is inflated. Objective - Vital Signs Vital signs: Vital Signs Temp 97.9 F 09/19/17 07:00 Pulse 58 L 09/19/17 12:40 Resp 20 09/19/17 12:40 BP 173/81 09/19/17 12:40 Pulse Ox 98 09/19/17 12:40 Intake & Output 09/18/17 09/19/17 09/19/17 18:59 06:59 18:59 Output Total 250 Balance -250 Weight 110 kg 113 kg 113 kg Output: Urine 250 Uretheral (Enriquez) 250 Other: Voiding Method Urinal Indwelling Catheter Indwelling Catheter Indwelling Catheter # Bowel Movements 1 - Exam Constitutional: vital signs showing elevated systolic blood pressure, patient is conversant, not in any acute distress Lungs: Clear to auscultation bilaterally except for respiratory rales and some diminished sounds at lung bases, clear to percussion, patient using accessory muscles of respiration, no wheezing Cardiovascular: Regular rate and rhythm, no murmurs, no gallops, no rubs, no peripheral edema Gastrointestinal: No tenderness palpation of the abdomen, mildly distended, bowel sounds are positive Extremities: No digital cyanosis or clubbing, peripheral pulses palpable and equal over bilateral radial arteries and dorsalis pedis artery, no calf muscle tenderness, capillary refill is immediate over bilateral big toes Psych: Alert, oriented to place, person, appropriate affect, following commands appropriately Enriquez catheter in place, with gross hematuria - Labs CBC & Chem 7: 09/19/17 07:09 09/19/17 07:09 Labs: Abnormal Lab Results - Last 24 Hours (Table) 09/18/17 09/18/17 09/18/17 Range/Units 12:46 13:45 17:11 RBC (4.30-5.90) m/uL Hgb (13.0-17.5) gm/dL Hct (39.0-53.0) % Plt Count (150-450) k/uL Lymphocytes # (1.0-4.8) k/uL Potassium (3.5-5.1) mmol/L Carbon Dioxide (22-30) mmol/L BUN (9-20) mg/dL Creatinine (0.66-1.25) mg/dL Glucose (74-99) mg/dL POC Glucose (mg/dL) 151 H (75-99) mg/dL Total Bilirubin (0.2-1.3) mg/dL Alkaline Phosphatase (38-126) U/L Ammonia 49 H (<30) umol/L Albumin (3.5-5.0) g/dL Amylase (30-110) U/L Lipase (23-300) U/L Urine Blood Moderate H (Negative) Urine RBC 19 H (0-5) /hpf Urine Bacteria Rare H (None) /hpf Hyaline Casts 3 H (0-2) /lpf Urine Mucus Rare H (None) /hpf 09/18/17 09/19/17 09/19/17 Range/Units 19:42 07:09 07:09 RBC 4.03 L (4.30-5.90) m/uL Hgb 12.3 L (13.0-17.5) gm/dL Hct 38.0 L (39.0-53.0) % Plt Count 114 L (150-450) k/uL Lymphocytes # 0.9 L (1.0-4.8) k/uL Potassium 5.2 H (3.5-5.1) mmol/L Carbon Dioxide 20 L (22-30) mmol/L BUN 57 H (9-20) mg/dL Creatinine 2.18 H (0.66-1.25) mg/dL Glucose 142 H (74-99) mg/dL POC Glucose (mg/dL) 189 H (75-99) mg/dL Total Bilirubin 3.1 H (0.2-1.3) mg/dL Alkaline Phosphatase 305 H (38-126) U/L Ammonia (<30) umol/L Albumin 3.2 L (3.5-5.0) g/dL Amylase 199 H (30-110) U/L Lipase 1591 H (23-300) U/L Urine Blood (Negative) Urine RBC (0-5) /hpf Urine Bacteria (None) /hpf Hyaline Casts (0-2) /lpf Urine Mucus (None) /hpf 09/19/17 09/19/17 Range/Units 08:06 11:25 RBC (4.30-5.90) m/uL Hgb (13.0-17.5) gm/dL Hct (39.0-53.0) % Plt Count (150-450) k/uL Lymphocytes # (1.0-4.8) k/uL Potassium (3.5-5.1) mmol/L Carbon Dioxide (22-30) mmol/L BUN (9-20) mg/dL Creatinine (0.66-1.25) mg/dL Glucose (74-99) mg/dL POC Glucose (mg/dL) 150 H 287 H (75-99) mg/dL Total Bilirubin (0.2-1.3) mg/dL Alkaline Phosphatase (38-126) U/L Ammonia (<30) umol/L Albumin (3.5-5.0) g/dL Amylase (30-110) U/L Lipase (23-300) U/L Urine Blood (Negative) Urine RBC (0-5) /hpf Urine Bacteria (None) /hpf Hyaline Casts (0-2) /lpf Urine Mucus (None) /hpf Microbiology - Last 24 Hours (Table) 09/15/17 13:20 Blood Culture - Preliminary Blood No Growth after 72 hours 09/16/17 09:32 Urine Culture - Final Urine,Voided Assessment and Plan Assessment: 72-year-old male with past medical history of congestive heart failure with left ventricular ejection fraction of 20%. patient presented to the hospital with abdominal pain found to have acute pancreatitis, he was also suspected to have appendicitis however that was ruled out by general surgery team , and surgery team thought it's an incidental finding of fecalith in the appendix without any active acute appendicitis, patient to continue to follow up with general surgery after discharge, patient received short course of Zosyn during this hospital stay. GI is assisting in management of his pancreatitis however patient cannot give MRCP due to having a pacemaker. Lipase has been trending down. Patient denies any more abdominal pain nausea or vomiting. He continues to be nothing by mouth. Patient also developed acute kidney injury and oliguria, which resulted in fluid overload and acute CHF exacerbation, MARGARITA due to 3rd spacing with decreased intravascular volume initially due to acute pancreatitis resulting in prerenal hypoperfusion . enriquez catheter inserted, which he self removed with balloon inflated, resulting in gross hematuria later. Patient continues to be oliquric despite aggressive diuresis However, nephrology suggested aggressive diuresis before considering hemodialysis , and patient started making some urine. his breathing started to improve with aggressive diuresis, holidng IV fluids, and utilizing Bipap. Enriquez catheter maintained for accurate ins and outs. patient could not be transferred yesterday to selective or ICU due to no available bed, today he continues to have SOB at rest mostly due to CHF, and will be trasferred to [facility] for close monitoring. Plan: # Acute hypoxic respiratory failure # Pulmonary edema due to acute CHF exacerbation (LVEF of 20% s/p ICD ) due to fluid overload #. Acute kidney injury , oliguric #. Metabolic acidosis secondary to acute renal failure #. Malignant hypertension with pulmonary edema continue with aggressive diuresis per nephrology strict Is and Os continue cardiac meds , coreg, imdur added hydralazine (for CHF and HTN) Continue with BiPAP at bedside to help with work of breathing cardiology consulted transfer patient to [facility] for close monitoring #Gross hematuria secondary to traumatic removal of the Enriquez catheter by the patient Urology input noted Continue with Enriquez catheter now and irrigation of the bladder as needed Continue to monitor urine output Hemoglobin stable #Diabetes mellitus with peripheral neuropathy Continue with current insulin management Blood sugars controlle d #Acute pancreatitis, improving Lipase was trending down, currently patient denies any abdominal pain nausea or vomiting Patient could not get MRCP done due to having pacemaker #Hyperbilirubinemia, mostly of the conjugated type, liver enzymes are unremarkable except for elevated alkaline phosphatase, improving now This is an obstructive jaundice picture, due to edema from acute pancreatitis However patient is afebrile, no leukocytosis GI and general surgery are following DVT prophylaxis, heparin sc TID History of chronic hepatitis C Thrombocytopenia most likely secondary to underlying hepatitis C No evidence of active bleeding at this time Patient is at moderate to high risk for any surgical intervention at this point due to acute CHF exacerbation with fluid overload and acute renal failure, and if not absolutely needed should be postponed at this point, per general surgery they think that the finding of fecalith in the appendix is an incidental finding and there is no enough evidence that the appendix is acutely inflamed, however patient did receive 5 days worth of antibiotics Zosyn and currently patient is not complaining of any fevers no leukocytosis and abdominal exam does not reveal any tenderness to palpation. General surgery will continue to follow-up and update the plan as needed. Meanwhile we will optimize his renal function and fluid overload status to get him in shape for any future plans.
[2017-09-19 14:05] LABS: Glucose,Whole Blood 248 mg/dL (75-99)
[2017-09-19 15:06] LABS: HCV Quant Log 5.62 (<1.08)
[2017-09-19] MEDS ORDERED: hydrALAZINE HCL 10 MG TAB PO SCH (16:00)
--- NOTE | 2017-09-19 16:06 | PN ---
PROGRESS NOTE Patient is seen for followup for acute kidney injury, mainly ATN, currently non- oliguric. Patient was admitted with acute pancreatitis. His lipase remains elevated and he developed respiratory distress and volume overload. His IV fluids were discontinued. Initially patient did not respond to the lower dose of Lasix, but he did well with 80 mg of Lasix that he received yesterday. Since then patient has an indwelling Elise catheter. His urine output over 24 hours was not much. It is documented at 695, but this was after the Elise catheter was placed. Patient had pulled out his Elise catheter and then it was reinserted. He states he is feeling better. He denies any abdominal pain today. Blood pressure is elevated at 173/81, heart rate of 58 per minute. Patient is afebrile. EXAMINATION OF THE HEART: S1, S2. EXAMINATION OF LUNGS: Bilateral breath sounds are heard. ABDOMEN: Distended, soft, non-tender. Examination of lower extremities shows edema 1+ bilaterally. Labs show sodium of 137, potassium 5.2, chloride 106, BUN 57, serum creatinine 2.18, hemoglobin 12.3 g/dL. Amylase at 199 and lipase at 1591 today. ASSESSMENT: 1. Acute kidney injury, acute tubular necrosis, currently non-oliguric, associated with acute pancreatitis and possibly cardiorenal as well. Patient's ejection fraction is at 20%. He is currently off of IV fluids. I will repeat another dose of Lasix 80 mg and we will give him 60 mg this evening. No nephrotoxic agents are on board at this time. Continue with the indwelling Elise catheter as well. 2. Acute pancreatitis. Lipase remains elevated. No evidence of biliary obstruction noted on CT scan. 3. Mild hyperkalemia. Expect improvement with diuresis. 4. Hypertension, partly volume-sensitive. Will continue with the Lasix and I will increase the oral hydralazine to 25 mg b.i.d. Continue with the Coreg as well. MMODL / IJN: [id number] /
[2017-09-19 17:21] LABS: Glucose,Whole Blood 269 mg/dL (75-99)
[2017-09-19 20:38] LABS: Glucose,Whole Blood 239 mg/dL (75-99)
[2017-09-19] MEDS: INSULIN DETEMIR 100 UNIT/ML 10 ML VIAL SQ SCH (22:16)
[2017-09-19] MEDS: hydrALAZINE HCL 25 MG TAB PO SCH (22:16)
[2017-09-20 05:38] LABS: Glucose,Whole Blood 276 mg/dL (75-99)
[2017-09-20 06:34] LABS: Amylase 190 U/L (30-110)
[2017-09-20] MEDS: INSULIN ASPART 100 UNIT/ML 1 ML 10 ML VIAL SQ SCH ×4 (06:36→20:59)
[2017-09-20] MEDS: CARVEDILOL 12.5 MG TAB PO SCH ×2 (06:36→17:13)
[2017-09-20 06:54] LABS: Lipase 2185 U/L (23-300)
[2017-09-20] MEDS: LACTULOSE 20 GM/30 ML CUP PO SCH ×2 (07:44→20:50)
[2017-09-20] MEDS: FUROSEMIDE 10 MG/ML 10 ML VIAL IV SCH ×2 (07:44→20:50)
[2017-09-20] MEDS: HEPARIN SODIUM,PORCINE 5,000 UNIT/ML 1 ML VIAL SQ SCH ×3 (07:45→23:26)
[2017-09-20] MEDS: hydrALAZINE HCL 25 MG TAB PO SCH (07:45)
[2017-09-20] MEDS: PANTOPRAZOLE 40 MG/10 ML VIAL IVP SCH (07:45)
[2017-09-20] MEDS: ISOSORBIDE MONONITRATE ER 30 MG TAB.ER.24H PO SCH (07:45)
[2017-09-20 08:50] LABS: Basophils % (A) 0 %; Eosinophils # (A) 0.1 k/uL (0-0.7); Eosinophils % (A) 1 %; HCT 36.7 % (39.0-53.0); HGB 11.7 gm/dL (13.0-17.5); Lymphocytes # (A) 0.9 k/uL (1.0-4.8); Lymphocytes % (A) 15 %; MCH 30.2 pg (25.0-35.0); MCHC 31.8 g/dL (31.0-37.0); MCV 95.2 fL (80.0-100.0); Mean Platelet Volume 11.8; Monocytes # (A) 0.5 k/uL (0-1.0); Monocytes % (A) 9 %; Neutrophils # (A) 4.2 k/uL (1.3-7.7); Neutrophils % (A) 71 %; Platelet Count 131 k/uL (150-450); RBC 3.86 m/uL (4.30-5.90); RDW 13.1 % (11.5-15.5)
[2017-09-20 08:53] LABS: Albumin 3.1 g/dL (3.5-5.0); Calcium 8.5 mg/dL (8.4-10.2); Potassium 5.2 mmol/L (3.5-5.1); Total Protein 6.7 g/dL (6.3-8.2)
--- NOTE | 2017-09-20 09:13 | P.PN ---
Subjective Progress Note Date: 09/20/17 Principal diagnosis: Acute pancreatitis Seen and examined for the follow-up of acute kidney injury. Still still wearing a Elise catheter, very dark urine. Denies any nausea vomiting or diarrhea. Objective - Vital Signs Vital signs: Vital Signs Temp 98 F 09/20/17 07:43 Pulse 70 09/20/17 07:52 Resp 20 09/20/17 07:52 BP 177/85 09/20/17 07:43 Pulse Ox 94 L 09/20/17 07:43 Intake & Output 09/19/17 09/20/17 09/20/17 18:59 06:59 18:59 Intake Total 600 360 Output Total 300 Balance 600 60 Weight 113 kg 104.5 kg Intake: Oral 600 360 Output: Urine 300 Other: Voiding Method Indwelling Catheter Indwelling Catheter Indwelling Catheter - Exam Sitting on the commode no acute distress S1-S2 heard Lungs basal crackles Elise dark urine Edema - Labs CBC & Chem 7: 09/20/17 05:49 09/20/17 05:49 Labs: Abnormal Lab Results - Last 24 Hours (Table) 09/17/17 09/19/17 09/19/17 Range/Units 07:41 07:09 11:25 RBC 4.03 L (4.30-5.90) m/uL Hgb 12.3 L (13.0-17.5) gm/dL Hct 38.0 L (39.0-53.0) % Plt Count 114 L (150-450) k/uL Lymphocytes # 0.9 L (1.0-4.8) k/uL Potassium (3.5-5.1) mmol/L Carbon Dioxide (22-30) mmol/L BUN (9-20) mg/dL Creatinine (0.66-1.25) mg/dL Glucose (74-99) mg/dL POC Glucose (mg/dL) 287 H (75-99) mg/dL Total Bilirubin (0.2-1.3) mg/dL Alkaline Phosphatase (38-126) U/L Ammonia (<30) umol/L Albumin (3.5-5.0) g/dL Amylase (30-110) U/L Lipase (23-300) U/L HCV RNA Qual (PCR) DETECTED H (Not detected) Hepatitis C RNA Quant 415,721 H (<12) IU/mL HCV RNA PCR log coping machine operator/ml 5.62 H (<1.08) Hepatitis C Genotype 1a H 09/19/17 09/19/17 09/19/17 Range/Units 14:03 17:09 20:36 RBC (4.30-5.90) m/uL Hgb (13.0-17.5) gm/dL Hct (39.0-53.0) % Plt Count (150-450) k/uL Lymphocytes # (1.0-4.8) k/uL Potassium (3.5-5.1) mmol/L Carbon Dioxide (22-30) mmol/L BUN (9-20) mg/dL Creatinine (0.66-1.25) mg/dL Glucose (74-99) mg/dL POC Glucose (mg/dL) 248 H 269 H 239 H (75-99) mg/dL Total Bilirubin (0.2-1.3) mg/dL Alkaline Phosphatase (38-126) U/L Ammonia (<30) umol/L Albumin (3.5-5.0) g/dL Amylase (30-110) U/L Lipase (23-300) U/L HCV RNA Qual (PCR) (Not detected) Hepatitis C RNA Quant (<12) IU/mL HCV RNA PCR log coping machine operator/ml (<1.08) Hepatitis C Genotype 09/20/17 09/20/17 09/20/17 Range/Units 05:38 05:49 05:49 RBC (4.30-5.90) m/uL Hgb (13.0-17.5) gm/dL Hct (39.0-53.0) % Plt Count (150-450) k/uL Lymphocytes # (1.0-4.8) k/uL Potassium (3.5-5.1) mmol/L Carbon Dioxide (22-30) mmol/L BUN (9-20) mg/dL Creatinine (0.66-1.25) mg/dL Glucose (74-99) mg/dL POC Glucose (mg/dL) 276 H (75-99) mg/dL Total Bilirubin (0.2-1.3) mg/dL Alkaline Phosphatase (38-126) U/L Ammonia 61 H (<30) umol/L Albumin (3.5-5.0) g/dL Amylase 190 H (30-110) U/L Lipase 2185 H (23-300) U/L HCV RNA Qual (PCR) (Not detected) Hepatitis C RNA Quant (<12) IU/mL HCV RNA PCR log coping machine operator/ml (<1.08) Hepatitis C Genotype 09/20/17 09/20/17 Range/Units 05:49 05:49 RBC 3.86 L (4.30-5.90) m/uL Hgb 11.7 L (13.0-17.5) gm/dL Hct 36.7 L (39.0-53.0) % Plt Count 131 L (150-450) k/uL Lymphocytes # 0.9 L (1.0-4.8) k/uL Potassium 5.2 H (3.5-5.1) mmol/L Carbon Dioxide 21 L (22-30) mmol/L BUN 59 H (9-20) mg/dL Creatinine 2.00 H (0.66-1.25) mg/dL Glucose 279 H (74-99) mg/dL POC Glucose (mg/dL) (75-99) mg/dL Total Bilirubin 2.0 H (0.2-1.3) mg/dL Alkaline Phosphatase 355 H (38-126) U/L Ammonia (<30) umol/L Albumin 3.1 L (3.5-5.0) g/dL Amylase (30-110) U/L Lipase (23-300) U/L HCV RNA Qual (PCR) (Not detected) Hepatitis C RNA Quant (<12) IU/mL HCV RNA PCR log coping machine operator/ml (<1.08) Hepatitis C Genotype Microbiology - Last 24 Hours (Table) 09/15/17 13:20 Blood Culture - Preliminary Blood No Growth after 96 hours Assessment and Plan Assessment: Impression: #1 nonoliguric acute kidney injury secondary to ischemic ATN. #2 mild hyperkalemia #3 metabolic acidosis #4 hypertension uncontrolled #5 pancreatitis Recommendations: #1 continue with Lasix 60 mg IV twice a day. Renal function stable. #2 low potassium diet. Anticipate potassium getting better with Lasix. #3 add sodium bicarbonate for metabolic acidosis #4 adjust antihypertensive medications.
--- NOTE | 2017-09-20 11:37 | P.PN ---
Subjective Progress Note Date: 09/20/17 Patient is a 72-year-old black male with multiple medical problems including acute pancreatitis, acute renal failure, and CHF exacerbation. At this time he denies any abdominal pain. A computed tomography scan on initial admission revealed a distal appendicolith with some questionable mild stranding. Repeat CAT scan did not reveal any increase in inflammation at this site. This is felt to be an incidental finding. The patient is being treated medically and at this time it does not have an acute surgical problem. Objective - Vital Signs Vital signs: Vital Signs Temp 97.7 F 09/20/17 10:59 Pulse 74 09/20/17 10:59 Resp 21 09/20/17 10:59 BP 166/78 09/20/17 10:59 Pulse Ox 94 L 09/20/17 10:59 Intake & Output 09/19/17 09/20/17 09/20/17 18:59 06:59 18:59 Intake Total 600 360 Output Total 300 Balance 600 60 Weight 113 kg 104.5 kg Intake: Oral 600 360 Output: Urine 300 Other: Voiding Method Indwelling Catheter Indwelling Catheter Indwelling Catheter - Constitutional General appearance: Present: obese - Respiratory Details: Decreased breath sounds bilaterally at the bases Patient using accessory muscles of respiration, no wheezing - Cardiovascular Rhythm: regular Heart sounds: normal: S1, S2 - Gastrointestinal Gastrointestinal Comment(s): No guarding or rebound General gastrointestinal: Present: decreased bowel sounds, distended, soft - Psychiatric Psychiatric Comment(s): oriented to person and place - Labs CBC & Chem 7: 09/20/17 05:49 09/20/17 05:49 Labs: Abnormal Lab Results - Last 24 Hours (Table) 09/17/17 09/19/17 09/19/17 Range/Units 07:41 11:25 14:03 RBC (4.30-5.90) m/uL Hgb (13.0-17.5) gm/dL Hct (39.0-53.0) % Plt Count (150-450) k/uL Lymphocytes # (1.0-4.8) k/uL Potassium (3.5-5.1) mmol/L Carbon Dioxide (22-30) mmol/L BUN (9-20) mg/dL Creatinine (0.66-1.25) mg/dL Glucose (74-99) mg/dL POC Glucose (mg/dL) 287 H 248 H (75-99) mg/dL Total Bilirubin (0.2-1.3) mg/dL Alkaline Phosphatase (38-126) U/L Ammonia (<30) umol/L Albumin (3.5-5.0) g/dL Amylase (30-110) U/L Lipase (23-300) U/L HCV RNA Qual (PCR) DETECTED H (Not detected) Hepatitis C RNA Quant 415,721 H (<12) IU/mL HCV RNA PCR log coppersmith apprentice/ml 5.62 H (<1.08) Hepatitis C Genotype 1a H 09/19/17 09/19/17 09/20/17 Range/Units 17:09 20:36 05:38 RBC (4.30-5.90) m/uL Hgb (13.0-17.5) gm/dL Hct (39.0-53.0) % Plt Count (150-450) k/uL Lymphocytes # (1.0-4.8) k/uL Potassium (3.5-5.1) mmol/L Carbon Dioxide (22-30) mmol/L BUN (9-20) mg/dL Creatinine (0.66-1.25) mg/dL Glucose (74-99) mg/dL POC Glucose (mg/dL) 269 H 239 H 276 H (75-99) mg/dL Total Bilirubin (0.2-1.3) mg/dL Alkaline Phosphatase (38-126) U/L Ammonia (<30) umol/L Albumin (3.5-5.0) g/dL Amylase (30-110) U/L Lipase (23-300) U/L HCV RNA Qual (PCR) (Not detected) Hepatitis C RNA Quant (<12) IU/mL HCV RNA PCR log coppersmith apprentice/ml (<1.08) Hepatitis C Genotype 09/20/17 09/20/17 09/20/17 Range/Units 05:49 05:49 05:49 RBC 3.86 L (4.30-5.90) m/uL Hgb 11.7 L (13.0-17.5) gm/dL Hct 36.7 L (39.0-53.0) % Plt Count 131 L (150-450) k/uL Lymphocytes # 0.9 L (1.0-4.8) k/uL Potassium (3.5-5.1) mmol/L Carbon Dioxide (22-30) mmol/L BUN (9-20) mg/dL Creatinine (0.66-1.25) mg/dL Glucose (74-99) mg/dL POC Glucose (mg/dL) (75-99) mg/dL Total Bilirubin (0.2-1.3) mg/dL Alkaline Phosphatase (38-126) U/L Ammonia 61 H (<30) umol/L Albumin (3.5-5.0) g/dL Amylase 190 H (30-110) U/L Lipase 2185 H (23-300) U/L HCV RNA Qual (PCR) (Not detected) Hepatitis C RNA Quant (<12) IU/mL HCV RNA PCR log coppersmith apprentice/ml (<1.08) Hepatitis C Genotype 09/20/17 Range/Units 05:49 RBC (4.30-5.90) m/uL Hgb (13.0-17.5) gm/dL Hct (39.0-53.0) % Plt Count (150-450) k/uL Lymphocytes # (1.0-4.8) k/uL Potassium 5.2 H (3.5-5.1) mmol/L Carbon Dioxide 21 L (22-30) mmol/L BUN 59 H (9-20) mg/dL Creatinine 2.00 H (0.66-1.25) mg/dL Glucose 279 H (74-99) mg/dL POC Glucose (mg/dL) (75-99) mg/dL Total Bilirubin 2.0 H (0.2-1.3) mg/dL Alkaline Phosphatase 355 H (38-126) U/L Ammonia (<30) umol/L Albumin 3.1 L (3.5-5.0) g/dL Amylase (30-110) U/L Lipase (23-300) U/L HCV RNA Qual (PCR) (Not detected) Hepatitis C RNA Quant (<12) IU/mL HCV RNA PCR log coppersmith apprentice/ml (<1.08) Hepatitis C Genotype Microbiology - Last 24 Hours (Table) 09/15/17 13:20 Blood Culture - Preliminary Blood No Growth after 96 hours Assessment and Plan Assessment: Impression/plan: 1. 72-year-old male with medical history of congestive heart failure left ventricular ejection fraction of 20% 2. Acute pancreatitis patient cannot have an MRCP secondary to pacemaker lipase has increased slightly today after patient began diet have discussed with GI and will continue to follow. 3. Acute kidney injury. 4. Nephrology suggested massive diuresis before considering hemodialysis Plan: 1. Medical management of medical problems 2. Patient does not have an acute surgical problem at this time we'll continue to follow with particular attention to the CT findings of the incidental fecalith in the distal appendix
[2017-09-20 11:46] LABS: Glucose,Whole Blood 288 mg/dL (75-99)
--- NOTE | 2017-09-20 12:18 | PN ---
PROGRESS NOTE Patient is a 72-year-old pleasant male admitted to the hospital in with abdominal pain and subsequently diagnosed with acute pancreatitis. The patient never had these symptoms in the past. He was noted to have elevated amylase and lipase and CT scan showing changes consistent with acute pancreatitis. This morning he denies any abdominal pain. He reports no nausea or vomiting. On a full liquid diet, tolerating well. He reports no fever, chills, or night sweats. PHYSICAL EXAMINATION: He is sleeping. VITAL SIGNS: Stable. Blood pressure was 165/80, pulse 67, temperature 97.9. HEENT: Examination unremarkable. Conjunctivae pink. Sclerae anicteric. Oral cavity no lesions. CHEST: Clear to auscultation. Abdomen was slightly distended, but was nontender, nondistended. EXTREMITIES: No pedal edema. SKIN: No rashes. NEURO: He is alert and oriented to name and place. LAB DATA: Showed a WBC of 6, hemoglobin 11.7, platelets of 131,000. AST and ALT of 41 and 38 respectively. T bilirubin is 2, and alkaline phosphatase is 355. The lipase was elevated at 2185 and amylase is 190. IMPRESSION: 1. Acute pancreatitis, first episode. Etiology unclear. Ultrasound and CT scan did not show any evidence of gallstones. 2. Mild elevation of T bilirubin as well as alkaline phosphatase, but normal serum transaminases. 3. Thrombocytopenia. 4. Positive hepatitis C antibody. HB RNA is still pending. The present. RECOMMENDATIONS: 1. Continue with a full liquid diet for now. 2. We will repeat labs in the morning. 3. No indication to proceed with an ERCP at the present time. We will follow him closely. Thank you for this consultation. MMODL / IJN: [id number] /
--- NOTE | 2017-09-20 13:48 | P.PN ---
Subjective Patient short of breath at rest. No chest pain compressive abdominal pain with elevated amylase lipase On examination blood pressure is 166/78 mmHg afebrile respirations 20-22 pulse rate in the 70s Breath sounds are decreased bilaterally Heart sounds S1 and S2 are soft Impression Hypertension volume overload Acute kidney injury acute tubular necrosis non-oliguric renal failure Acute pancreatitis Plan Continue current management management Objective - Vital Signs Vital signs: Vital Signs Temp 97.7 F 09/20/17 10:59 Pulse 74 09/20/17 10:59 Resp 21 09/20/17 10:59 BP 166/78 09/20/17 10:59 Pulse Ox 94 L 09/20/17 10:59 Intake & Output 09/19/17 09/20/17 09/20/17 18:59 06:59 18:59 Intake Total 600 360 240 Output Total 300 1 Balance 600 60 239 Weight 113 kg 104.5 kg Intake: Oral 600 360 240 Output: Urine 300 Urine/Stool Mix 1 Other: Voiding Method Indwelling Catheter Indwelling Catheter Indwelling Catheter - Labs CBC & Chem 7: 09/20/17 05:49 09/20/17 05:49 Labs: Abnormal Lab Results - Last 24 Hours (Table) 09/17/17 09/19/17 09/19/17 Range/Units 07:41 14:03 17:09 RBC (4.30-5.90) m/uL Hgb (13.0-17.5) gm/dL Hct (39.0-53.0) % Plt Count (150-450) k/uL Lymphocytes # (1.0-4.8) k/uL Potassium (3.5-5.1) mmol/L Carbon Dioxide (22-30) mmol/L BUN (9-20) mg/dL Creatinine (0.66-1.25) mg/dL Glucose (74-99) mg/dL POC Glucose (mg/dL) 248 H 269 H (75-99) mg/dL Total Bilirubin (0.2-1.3) mg/dL Alkaline Phosphatase (38-126) U/L Ammonia (<30) umol/L Albumin (3.5-5.0) g/dL Amylase (30-110) U/L Lipase (23-300) U/L HCV RNA Qual (PCR) DETECTED H (Not detected) Hepatitis C RNA Quant 415,721 H (<12) IU/mL HCV RNA PCR log newspaper copy editor/ml 5.62 H (<1.08) Hepatitis C Genotype 1a H 09/19/17 09/20/17 09/20/17 Range/Units 20:36 05:38 05:49 RBC (4.30-5.90) m/uL Hgb (13.0-17.5) gm/dL Hct (39.0-53.0) % Plt Count (150-450) k/uL Lymphocytes # (1.0-4.8) k/uL Potassium (3.5-5.1) mmol/L Carbon Dioxide (22-30) mmol/L BUN (9-20) mg/dL Creatinine (0.66-1.25) mg/dL Glucose (74-99) mg/dL POC Glucose (mg/dL) 239 H 276 H (75-99) mg/dL Total Bilirubin (0.2-1.3) mg/dL Alkaline Phosphatase (38-126) U/L Ammonia (<30) umol/L Albumin (3.5-5.0) g/dL Amylase 190 H (30-110) U/L Lipase 2185 H (23-300) U/L HCV RNA Qual (PCR) (Not detected) Hepatitis C RNA Quant (<12) IU/mL HCV RNA PCR log newspaper copy editor/ml (<1.08) Hepatitis C Genotype 09/20/17 09/20/17 09/20/17 Range/Units 05:49 05:49 05:49 RBC 3.86 L (4.30-5.90) m/uL Hgb 11.7 L (13.0-17.5) gm/dL Hct 36.7 L (39.0-53.0) % Plt Count 131 L (150-450) k/uL Lymphocytes # 0.9 L (1.0-4.8) k/uL Potassium 5.2 H (3.5-5.1) mmol/L Carbon Dioxide 21 L (22-30) mmol/L BUN 59 H (9-20) mg/dL Creatinine 2.00 H (0.66-1.25) mg/dL Glucose 279 H (74-99) mg/dL POC Glucose (mg/dL) (75-99) mg/dL Total Bilirubin 2.0 H (0.2-1.3) mg/dL Alkaline Phosphatase 355 H (38-126) U/L Ammonia 61 H (<30) umol/L Albumin 3.1 L (3.5-5.0) g/dL Amylase (30-110) U/L Lipase (23-300) U/L HCV RNA Qual (PCR) (Not detected) Hepatitis C RNA Quant (<12) IU/mL HCV RNA PCR log newspaper copy editor/ml (<1.08) Hepatitis C Genotype 09/20/17 Range/Units 11:31 RBC (4.30-5.90) m/uL Hgb (13.0-17.5) gm/dL Hct (39.0-53.0) % Plt Count (150-450) k/uL Lymphocytes # (1.0-4.8) k/uL Potassium (3.5-5.1) mmol/L Carbon Dioxide (22-30) mmol/L BUN (9-20) mg/dL Creatinine (0.66-1.25) mg/dL Glucose (74-99) mg/dL POC Glucose (mg/dL) 288 H (75-99) mg/dL Total Bilirubin (0.2-1.3) mg/dL Alkaline Phosphatase (38-126) U/L Ammonia (<30) umol/L Albumin (3.5-5.0) g/dL Amylase (30-110) U/L Lipase (23-300) U/L HCV RNA Qual (PCR) (Not detected) Hepatitis C RNA Quant (<12) IU/mL HCV RNA PCR log newspaper copy editor/ml (<1.08) Hepatitis C Genotype Microbiology - Last 24 Hours (Table) 09/15/17 13:20 Blood Culture - Preliminary Blood No Growth after 96 hours
--- NOTE | 2017-09-20 14:45 | P.PN ---
Subjective Progress Note Date: 09/20/17 Principal diagnosis: patient is seen and examined in follow up for acute pancreatitis, acute renal failure, and CHF exacerbation Patient seen and examined today, patient continues to have some shortness of breath even while resting doing nothing, denies any chest pain, or dizziness. He reports that he always feels like this at home . he denies any abd pain , nausea or vomiting. He continues to have hematuria however, it is clearing up Objective - Vital Signs Vital signs: Vital Signs Temp 97.7 F 09/20/17 10:59 Pulse 74 09/20/17 10:59 Resp 21 09/20/17 10:59 BP 166/78 09/20/17 10:59 Pulse Ox 94 L 09/20/17 10:59 Intake & Output 09/19/17 09/20/17 09/20/17 18:59 06:59 18:59 Intake Total 600 360 240 Output Total 300 1 Balance 600 60 239 Weight 113 kg 104.5 kg Intake: Oral 600 360 240 Output: Urine 300 Urine/Stool Mix 1 Other: Voiding Method Indwelling Catheter Indwelling Catheter Indwelling Catheter - Exam Constitutional: vital signs showing elevated systolic blood pressure, patient is conversant, not in any acute distress Lungs: Clear to auscultation bilaterally , clear to percussion, no wheezing no rales no rhonchi Cardiovascular: Regular rate and rhythm, no murmurs, no gallops, no rubs, no peripheral edema Gastrointestinal: No tenderness palpation of the abdomen, mildly distended, bowel sounds are positive Extremities: No digital cyanosis or clubbing, peripheral pulses palpable and equal over bilateral radial arteries and dorsalis pedis artery, no calf muscle tenderness, capillary refill is immediate over bilateral big toes Psych: Alert, oriented to place, person, appropriate affect Enriquez catheter in place, hematuria clearing up - Labs CBC & Chem 7: 09/20/17 05:49 09/20/17 05:49 Labs: Abnormal Lab Results - Last 24 Hours (Table) 09/17/17 09/19/17 09/19/17 Range/Units 07:41 17:09 20:36 RBC (4.30-5.90) m/uL Hgb (13.0-17.5) gm/dL Hct (39.0-53.0) % Plt Count (150-450) k/uL Lymphocytes # (1.0-4.8) k/uL Potassium (3.5-5.1) mmol/L Carbon Dioxide (22-30) mmol/L BUN (9-20) mg/dL Creatinine (0.66-1.25) mg/dL Glucose (74-99) mg/dL POC Glucose (mg/dL) 269 H 239 H (75-99) mg/dL Total Bilirubin (0.2-1.3) mg/dL Alkaline Phosphatase (38-126) U/L Ammonia (<30) umol/L Albumin (3.5-5.0) g/dL Amylase (30-110) U/L Lipase (23-300) U/L HCV RNA Qual (PCR) DETECTED H (Not detected) Hepatitis C RNA Quant 415,721 H (<12) IU/mL HCV RNA PCR log junior copywriter/ml 5.62 H (<1.08) Hepatitis C Genotype 1a H 09/20/17 09/20/17 09/20/17 Range/Units 05:38 05:49 05:49 RBC (4.30-5.90) m/uL Hgb (13.0-17.5) gm/dL Hct (39.0-53.0) % Plt Count (150-450) k/uL Lymphocytes # (1.0-4.8) k/uL Potassium (3.5-5.1) mmol/L Carbon Dioxide (22-30) mmol/L BUN (9-20) mg/dL Creatinine (0.66-1.25) mg/dL Glucose (74-99) mg/dL POC Glucose (mg/dL) 276 H (75-99) mg/dL Total Bilirubin (0.2-1.3) mg/dL Alkaline Phosphatase (38-126) U/L Ammonia 61 H (<30) umol/L Albumin (3.5-5.0) g/dL Amylase 190 H (30-110) U/L Lipase 2185 H (23-300) U/L HCV RNA Qual (PCR) (Not detected) Hepatitis C RNA Quant (<12) IU/mL HCV RNA PCR log junior copywriter/ml (<1.08) Hepatitis C Genotype 09/20/17 09/20/17 09/20/17 Range/Units 05:49 05:49 11:31 RBC 3.86 L (4.30-5.90) m/uL Hgb 11.7 L (13.0-17.5) gm/dL Hct 36.7 L (39.0-53.0) % Plt Count 131 L (150-450) k/uL Lymphocytes # 0.9 L (1.0-4.8) k/uL Potassium 5.2 H (3.5-5.1) mmol/L Carbon Dioxide 21 L (22-30) mmol/L BUN 59 H (9-20) mg/dL Creatinine 2.00 H (0.66-1.25) mg/dL Glucose 279 H (74-99) mg/dL POC Glucose (mg/dL) 288 H (75-99) mg/dL Total Bilirubin 2.0 H (0.2-1.3) mg/dL Alkaline Phosphatase 355 H (38-126) U/L Ammonia (<30) umol/L Albumin 3.1 L (3.5-5.0) g/dL Amylase (30-110) U/L Lipase (23-300) U/L HCV RNA Qual (PCR) (Not detected) Hepatitis C RNA Quant (<12) IU/mL HCV RNA PCR log junior copywriter/ml (<1.08) Hepatitis C Genotype Microbiology - Last 24 Hours (Table) 09/15/17 13:20 Blood Culture - Preliminary Blood No Growth after 96 hours Assessment and Plan Assessment: 72-year-old male with past medical history of congestive heart failure with left ventricular ejection fraction of 20%. patient presented to the hospital with abdominal pain found to have acute pancreatitis, he was also suspected to have appendicitis however that was ruled out by general surgery team , and surgery team thought it's an incidental finding of fecalith in the appendix without any active acute appendicitis, patient to continue to follow up with general surgery after discharge, patient received short course of Zosyn during this hospital stay. GI is assisting in management of his pancreatitis however patient cannot give MRCP due to having a pacemaker. Lipase has been trending down initially . Patient denies any more abdominal pain nausea or vomiting. patient tolerated PO intake, clinically his acute pancreatitis attack has resolved, however, his lipase today is trending up again. Patient also developed acute kidney injury and oliguria, which resulted in fluid overload and acute CHF exacerbation, MARGARITA due to 3rd spacing with decreased intravascular volume initially due to acute pancreatitis resulting in prerenal hypoperfusion . enriquez catheter inserted, which he self removed with balloon inflated, resulting in gross hematuria later. However, nephrology suggested aggressive diuresis before considering hemodialysis , and patient started making some urine. his breathing started to improve with aggressive diuresis, holidng IV fluids, and utilizing Bipap. Enriquez catheter maintained for accurate ins and outs. patient is currently being managed at [facility] , however, he is stable enough to be moved back to med surg with tele. Patient responded to aggressive diuresis , and is not oliguric anymore. renal function continues to improve. Cardiology input was requested regarding his SOB at rest due to fluid overload and poor cardiac function, cardiology agreed with current management and will continue to follow up their recommendations Plan: # Acute hypoxic respiratory failure , improving # Pulmonary edema due to acute CHF exacerbation (LVEF of 20% s/p ICD ) due to fluid overload, improving #. Acute kidney injury , non-oliguric now #. Metabolic acidosis secondary to acute renal failure #. Malignant hypertension with pulmonary edema, improving continue with aggressive diuresis per nephrology strict Is and Os continue cardiac meds , coreg, imdur hydralazine (for CHF and HTN), added and now adjusting dose to optimize BP control Continue with BiPAP at bedside to help with work of breathing cardiology input noted Ok to transfer patient back to med surg unit with tele #Gross hematuria secondary to traumatic removal of the Enriquez catheter by the patient, improving Urology input noted Continue with Enriquez catheter now and irrigation of the bladder as needed Continue to monitor urine output Hemoglobin stable #Diabetes mellitus with peripheral neuropathy Continue with current insulin management Blood sugars controlled #Acute pancreatitis, improving Lipase was trending down, today increased alittle bit, but clinically currently patient denies any abdominal pain nausea or vomiting, and tolerating diet Patient could not get MRCP done due to having pacemaker #Hyperbilirubinemia, mostly of the conjugated type, liver enzymes are unremarkable except for elevated alkaline phosphatase, improving now This is an obstructive jaundice picture, due to edema from acute pancreatitis However patient is afebrile, no leukocytosis GI and general surgery are following DVT prophylaxis, heparin sc TID History of chronic hepatitis C Thrombocytopenia most likely secondary to underlying hepatitis C, now improving No evidence of active bleeding at this time Ok to transfer to med surg unit with tele discharge planning, patient agrees to go to SNF for short period , due to overall debility and dyspnea at rest possible discharge on Friday follow up labs
[2017-09-20 17:09] LABS: Glucose,Whole Blood 231 mg/dL (75-99)
[2017-09-20] MEDS: INSULIN DETEMIR 100 UNIT/ML 10 ML VIAL SQ SCH (20:50)
[2017-09-20] MEDS: hydrALAZINE HCL 50 MG TAB PO SCH (20:50)
[2017-09-20 21:01] LABS: Glucose,Whole Blood 222 mg/dL (75-99)
[2017-09-21] MEDS: CARVEDILOL 12.5 MG TAB PO SCH ×2 (04:38→17:29)
[2017-09-21 06:29] LABS: Basophils % (A) 1 %; Eosinophils # (A) 0.1 k/uL (0-0.7); Eosinophils % (A) 2 %; HCT 36.3 % (39.0-53.0); HGB 11.5 gm/dL (13.0-17.5); Lymphocytes # (A) 1.3 k/uL (1.0-4.8); Lymphocytes % (A) 20 %; MCH 29.8 pg (25.0-35.0); MCHC 31.7 g/dL (31.0-37.0); Mean Platelet Volume 11.7; Monocytes # (A) 0.6 k/uL (0-1.0); Monocytes % (A) 9 %; Neutrophils # (A) 4.3 k/uL (1.3-7.7); Neutrophils % (A) 66 %; Platelet Count 137 k/uL (150-450); RBC 3.87 m/uL (4.30-5.90); RDW 13.3 % (11.5-15.5); WBC 6.5 k/uL (3.8-10.6)
[2017-09-21] MEDS: INSULIN ASPART 100 UNIT/ML 1 ML 10 ML VIAL SQ SCH ×4 (06:38→21:45)
[2017-09-21 06:41] LABS: Albumin 3.2 g/dL (3.5-5.0); Potassium 5.4 mmol/L (3.5-5.1); Total Bilirubin 1.7 mg/dL (0.2-1.3)
[2017-09-21 06:50] LABS: Glucose,Whole Blood 156 mg/dL (75-99)
[2017-09-21] MEDS: HEPARIN SODIUM,PORCINE 5,000 UNIT/ML 1 ML VIAL SQ SCH ×2 (07:28→15:10)
[2017-09-21] MEDS: LACTULOSE 20 GM/30 ML CUP PO SCH ×2 (07:28→19:56)
[2017-09-21] MEDS: hydrALAZINE HCL 50 MG TAB PO SCH ×2 (07:29→20:09)
[2017-09-21] MEDS: ISOSORBIDE MONONITRATE ER 30 MG TAB.ER.24H PO SCH (07:29)
[2017-09-21] MEDS: FUROSEMIDE 10 MG/ML 10 ML VIAL IV SCH ×2 (07:29→21:46)
[2017-09-21] MEDS: PANTOPRAZOLE 40 MG/10 ML VIAL IVP SCH (07:30)
[2017-09-21 08:05] LABS: Polychromasia Present; Toxic Granulation Present
--- NOTE | 2017-09-21 09:23 | PN ---
PROGRESS NOTE DATE OF SERVICE: September 21, 2017 Patient is a 72-year-old white male admitted to hospital with acute pancreatitis. Presented with abdominal pain, nausea, vomiting. He is doing better this morning. Still had some mild epigastric discomfort. No nausea, vomiting. On a full liquid diet, tolerating well. No fever, chills, or night sweats. PHYSICAL EXAMINATION: He appears comfortable. No apparent distress. Vital signs stable. Blood pressure 166/70, pulse rate 64, temperature 97.2. HEENT examination unremarkable. Conjunctivae pink. Sclerae anicteric. Oral cavity no lesions. Neck: No jugular venous distention or lymph node enlargement. The chest was clear to auscultation. HEART: Regular rate and rhythm. ABDOMEN: Obese, nontender. Bowel sounds are positive. Extremities: No pedal edema. Skin no rashes. NEUROLOGIC: Alert and oriented x3. No focal deficits. LAB: From this morning, WBC 6.5, hemoglobin 11.5, platelets 137. Sodium 140, potassium 5.4, chloride 108, BUN 46, creatinine 1.2, T bilirubin is 1.7. AST and ALT are 41 and 35 respectively, alkaline phosphatase 310. Amylase is 190 and lipase is down to 1703. IMPRESSION: Acute pancreatitis, gradually improving, serum transaminases are within normal limits. Total bilirubin as well as alkaline phosphatase is also improving. He did have ultrasound as well as CT scan of the abdomen and pelvis. The patient did not show any evidence of biliary ductal dilation or gallstones. RECOMMENDATIONS: 1. Continue with symptomatic and supportive care. 2. Since LFTs are gradually improving. No indication to proceed with an ERCP at the present time. 3. We will follow him closely. Thank you for this consultation. MMODL / IJN: [id number] /
--- NOTE | 2017-09-21 09:55 | P.PN ---
Subjective Progress Note Date: 09/21/17 Principal diagnosis: Acute pancreatitis Seen and examined for the follow-up of acute kidney injury. Denies any nausea vomiting or diarrhea. Sleeping comfortably in the bed Objective - Vital Signs Vital signs: Vital Signs Temp 97.2 F L 09/21/17 07:34 Pulse 64 09/21/17 07:34 Resp 21 09/21/17 07:34 BP 166/70 09/21/17 07:34 Pulse Ox 96 09/21/17 07:34 Intake & Output 09/20/17 09/21/17 09/21/17 17:59 06:59 18:59 Intake Total 118 Output Total Balance 118 Weight Intake: Oral 118 Output: Urine Urine/Stool Mix Other: Voiding Method Indwelling Catheter - Exam no acute distress S1-S2 heard Lungs basal crackles Elise dark urine Edema - Labs CBC & Chem 7: 09/21/17 05:37 09/21/17 05:37 Labs: Abnormal Lab Results - Last 24 Hours (Table) 09/20/17 09/20/17 09/20/17 Range/Units 05:49 05:49 11:31 RBC 3.86 L (4.30-5.90) m/uL Hgb 11.7 L (13.0-17.5) gm/dL Hct 36.7 L (39.0-53.0) % Plt Count 131 L (150-450) k/uL Lymphocytes # 0.9 L (1.0-4.8) k/uL Potassium 5.2 H (3.5-5.1) mmol/L Chloride (98-107) mmol/L Carbon Dioxide 21 L (22-30) mmol/L BUN 59 H (9-20) mg/dL Creatinine 2.00 H (0.66-1.25) mg/dL Glucose 279 H (74-99) mg/dL POC Glucose (mg/dL) 288 H (75-99) mg/dL Total Bilirubin 2.0 H (0.2-1.3) mg/dL Alkaline Phosphatase 355 H (38-126) U/L Albumin 3.1 L (3.5-5.0) g/dL Amylase (30-110) U/L Lipase (23-300) U/L 09/20/17 09/20/17 09/21/17 Range/Units 17:06 20:58 05:37 RBC 3.87 L (4.30-5.90) m/uL Hgb 11.5 L (13.0-17.5) gm/dL Hct 36.3 L (39.0-53.0) % Plt Count 137 L (150-450) k/uL Lymphocytes # (1.0-4.8) k/uL Potassium (3.5-5.1) mmol/L Chloride (98-107) mmol/L Carbon Dioxide (22-30) mmol/L BUN (9-20) mg/dL Creatinine (0.66-1.25) mg/dL Glucose (74-99) mg/dL POC Glucose (mg/dL) 231 H 222 H (75-99) mg/dL Total Bilirubin (0.2-1.3) mg/dL Alkaline Phosphatase (38-126) U/L Albumin (3.5-5.0) g/dL Amylase (30-110) U/L Lipase (23-300) U/L 09/21/17 09/21/17 Range/Units 05:37 06:35 RBC (4.30-5.90) m/uL Hgb (13.0-17.5) gm/dL Hct (39.0-53.0) % Plt Count (150-450) k/uL Lymphocytes # (1.0-4.8) k/uL Potassium 5.4 H (3.5-5.1) mmol/L Chloride 108 H (98-107) mmol/L Carbon Dioxide (22-30) mmol/L BUN 46 H (9-20) mg/dL Creatinine (0.66-1.25) mg/dL Glucose 179 H (74-99) mg/dL POC Glucose (mg/dL) 156 H (75-99) mg/dL Total Bilirubin 1.7 H (0.2-1.3) mg/dL Alkaline Phosphatase 310 H (38-126) U/L Albumin 3.2 L (3.5-5.0) g/dL Amylase 190 H (30-110) U/L Lipase 1703 H (23-300) U/L Microbiology - Last 24 Hours (Table) 09/15/17 13:20 Blood Culture - Preliminary Blood No Growth after 120 hours Assessment and Plan Assessment: Impression: #1 nonoliguric acute kidney injury secondary to ischemic ATN. #2 mild hyperkalemia suspect secondary to type IV RTA from diabetes #3 metabolic acidosis #4 hypertension uncontrolled #5 pancreatitis Recommendations: #1 continue with Lasix 60 mg IV twice a day. Renal function stable and improving. #2 low potassium diet. Anticipate potassium getting better with Lasix. By tomorrow consider changing to by mouth Lasix #3 on sodium bicarbonate for metabolic acidosis #4 adjusted antihypertensive medications yesterday so monitor closely.
--- NOTE | 2017-09-21 11:33 | P.PN ---
Subjective Patient is a 72-year-old black male with multiple medical problems including acute pancreatitis, acute renal failure, and CHF exacerbation. At this time he denies any abdominal pain. A computed tomography scan on initial admission revealed a distal appendicolith with some questionable mild stranding. Repeat CAT scan did not reveal any increase in inflammation at this site. This is felt to be an incidental finding. The patient is being treated medically and at this time it does not have an acute surgical problem. Patient is tolerating his diet without difficulty. Lipase is down to 1703 from 2185 Objective - Vital Signs Vital signs: Vital Signs Temp 97.2 F L 09/21/17 07:34 Pulse 64 09/21/17 07:34 Resp 21 09/21/17 07:34 BP 166/70 09/21/17 07:34 Pulse Ox 96 09/21/17 07:34 Intake & Output 09/20/17 09/21/17 09/21/17 17:59 06:59 18:59 Intake Total 118 Output Total Balance 118 Weight Intake: Oral 118 Output: Urine Urine/Stool Mix Other: Voiding Method Indwelling Catheter - Constitutional General appearance: Present: obese - Respiratory Details: Decreased breath sounds at the bases - Cardiovascular Rhythm: regular Heart sounds: normal: S1, S2 - Gastrointestinal Gastrointestinal Comment(s): Protuberant abdomen No guarding or rebound General gastrointestinal: Present: decreased bowel sounds, soft - Psychiatric Psychiatric Comment(s): Patient seems more alert today - Labs CBC & Chem 7: 09/21/17 05:37 09/21/17 05:37 Labs: Abnormal Lab Results - Last 24 Hours (Table) 09/20/17 09/20/17 09/20/17 Range/Units 11:31 17:06 20:58 RBC (4.30-5.90) m/uL Hgb (13.0-17.5) gm/dL Hct (39.0-53.0) % Plt Count (150-450) k/uL Potassium (3.5-5.1) mmol/L Chloride (98-107) mmol/L BUN (9-20) mg/dL Glucose (74-99) mg/dL POC Glucose (mg/dL) 288 H 231 H 222 H (75-99) mg/dL Total Bilirubin (0.2-1.3) mg/dL Alkaline Phosphatase (38-126) U/L Albumin (3.5-5.0) g/dL Amylase (30-110) U/L Lipase (23-300) U/L 09/21/17 09/21/17 09/21/17 Range/Units 05:37 05:37 06:35 RBC 3.87 L (4.30-5.90) m/uL Hgb 11.5 L (13.0-17.5) gm/dL Hct 36.3 L (39.0-53.0) % Plt Count 137 L (150-450) k/uL Potassium 5.4 H (3.5-5.1) mmol/L Chloride 108 H (98-107) mmol/L BUN 46 H (9-20) mg/dL Glucose 179 H (74-99) mg/dL POC Glucose (mg/dL) 156 H (75-99) mg/dL Total Bilirubin 1.7 H (0.2-1.3) mg/dL Alkaline Phosphatase 310 H (38-126) U/L Albumin 3.2 L (3.5-5.0) g/dL Amylase 190 H (30-110) U/L Lipase 1703 H (23-300) U/L Microbiology - Last 24 Hours (Table) 09/15/17 13:20 Blood Culture - Preliminary Blood No Growth after 120 hours Assessment and Plan Assessment: Impression/plan: 1. 72-year-old male with medical history of congestive heart failure left ventricular ejection fraction of 20% 2. Acute pancreatitis patient cannot have an MRCP secondary to pacemaker, lipase decreased today continue to follow. 3. Acute kidney injury. Plan: 1. Medical management of medical problems 2. Patient does not have an acute surgical problem at this time we'll continue to follow with particular attention to the CT findings of the incidental fecalith in the distal appendix
[2017-09-21 12:27] LABS: Glucose,Whole Blood 260 mg/dL (75-99)
--- NOTE | 2017-09-21 13:05 | P.PN ---
Subjective Progress Note Date: 09/21/17 Principal diagnosis: patient is seen and examined in follow up for acute pancreatitis, acute renal failure, and CHF exacerbation Patient seen and examined today, patient feels way better today, denies any chest pain or abdominal pain. His breathing has improved however he reports shortness of breath during rest at baseline. Tolerating diet denies any nausea or vomiting, passing bowel movements nonbloody no melena. His urine is clearing currently yellow no evidence of any further hematuria. Objective - Vital Signs Vital signs: Vital Signs Temp 97.2 F L 09/21/17 07:34 Pulse 65 09/21/17 12:00 Resp 20 09/21/17 12:00 BP 150/77 09/21/17 12:00 Pulse Ox 95 09/21/17 12:00 Intake & Output 09/20/17 09/21/17 09/21/17 17:59 06:59 18:59 Intake Total 236 Output Total 1800 Balance -1564 Weight Intake: Oral 236 Output: Urine 1800 Urine/Stool Mix Other: Voiding Method Indwelling Catheter - Exam Constitutional: Vital signs stable, showing improved systolic blood pressure, patient is conversant, not in any acute distress Lungs: Clear to auscultation bilaterally , clear to percussion, no wheezing no rales no rhonchi Cardiovascular: Regular rate and rhythm, no murmurs, no gallops, no rubs, very slight edema over the left foot Gastrointestinal: No tenderness palpation of the abdomen, mildly distended, bowel sounds are positive Extremities: No digital cyanosis or clubbing, peripheral pulses palpable and equal over bilateral radial arteries and dorsalis pedis artery, no calf muscle tenderness, capillary refill is immediate over bilateral big toes Psych: Alert, oriented to place, person, appropriate affect Enriquez catheter in place showing yellow urine now no further hematuria - Labs CBC & Chem 7: 09/21/17 05:37 09/21/17 05:37 Labs: Abnormal Lab Results - Last 24 Hours (Table) 09/20/17 09/20/17 09/21/17 Range/Units 17:06 20:58 05:37 RBC 3.87 L (4.30-5.90) m/uL Hgb 11.5 L (13.0-17.5) gm/dL Hct 36.3 L (39.0-53.0) % Plt Count 137 L (150-450) k/uL Potassium (3.5-5.1) mmol/L Chloride (98-107) mmol/L BUN (9-20) mg/dL Glucose (74-99) mg/dL POC Glucose (mg/dL) 231 H 222 H (75-99) mg/dL Total Bilirubin (0.2-1.3) mg/dL Alkaline Phosphatase (38-126) U/L Albumin (3.5-5.0) g/dL Amylase (30-110) U/L Lipase (23-300) U/L 09/21/17 09/21/17 09/21/17 Range/Units 05:37 06:35 12:07 RBC (4.30-5.90) m/uL Hgb (13.0-17.5) gm/dL Hct (39.0-53.0) % Plt Count (150-450) k/uL Potassium 5.4 H (3.5-5.1) mmol/L Chloride 108 H (98-107) mmol/L BUN 46 H (9-20) mg/dL Glucose 179 H (74-99) mg/dL POC Glucose (mg/dL) 156 H 260 H (75-99) mg/dL Total Bilirubin 1.7 H (0.2-1.3) mg/dL Alkaline Phosphatase 310 H (38-126) U/L Albumin 3.2 L (3.5-5.0) g/dL Amylase 190 H (30-110) U/L Lipase 1703 H (23-300) U/L Microbiology - Last 24 Hours (Table) 09/15/17 13:20 Blood Culture - Preliminary Blood No Growth after 120 hours Assessment and Plan Assessment: 72-year-old male with past medical history of congestive heart failure with left ventricular ejection fraction of 20%. patient presented to the hospital with abdominal pain found to have acute pancreatitis, he was also suspected to have appendicitis however that was ruled out by general surgery team , and surgery team thought it's an incidental finding of fecalith in the appendix without any active acute appendicitis, patient to continue to follow up with general surgery after discharge, patient received short course of Zosyn during this hospital stay. GI is assisting in management of his pancreatitis however patient cannot give MRCP due to having a pacemaker. Lipase has been trending down initially . Patient denies any more abdominal pain nausea or vomiting. patient tolerated PO intake, clinically his acute pancreatitis attack has resolved, however, his lipase today is trending up again. Patient also developed acute kidney injury and oliguria, which resulted in fluid overload and acute CHF exacerbation, MARGARITA due to 3rd spacing with decreased intravascular volume initially due to acute pancreatitis resulting in prerenal hypoperfusion . enriquez catheter inserted, which he self removed with balloon inflated, resulting in gross hematuria later. However, nephrology suggested aggressive diuresis before considering hemodialysis , and patient started making some urine. his breathing started to improve with aggressive diuresis, holidng IV fluids, and utilizing Bipap. Enriquez catheter maintained for accurate ins and outs. patient is currently being managed at [facility] , however, he is stable enough to be moved back to [facility] with tele. Patient responded to aggressive diuresis , and is not oliguric anymore. renal function continues to improve. Cardiology input was requested regarding his SOB at rest due to fluid overload and poor cardiac function, cardiology agreed with current management and will continue to follow up their recommendations On 09/21, all his labs are improving, patient condition is stable now, he will be transferred back to [facility] with telemetry, patient continued to be monitored in the hospital awaiting placement at subacute rehab due to poor cardiac function and limited functional capacity Plan: # Acute hypoxic respiratory failure , resolved # Pulmonary edema due to acute CHF exacerbation (LVEF of 20% s/p ICD ) due to fluid overload, resolved #. Acute kidney injury , non-oliguric, resolved #. Metabolic acidosis secondary to acute renal failure, resolved #. Malignant hypertension with pulmonary edema, resolved Continue with IV diuresis for 1 more day, will be switched to by mouth Lasix in the morning per nephrology recommendations strict Is and Os continue cardiac meds , coreg, imdur, continue with hydralazine (this is a new medication) Continue to monitor blood pressure closely with recent adjustment of his medications Continue with BiPAP at bedside to help with work of breathing Ok to transfer patient back to [facility] unit with tele #Gross hematuria secondary to traumatic removal of the Enriquez catheter by the patient, resolved Urology input noted Continue with Enriquez catheter now and irrigation of the bladder as needed Continue to monitor urine output Hemoglobin stable #Diabetes mellitus with peripheral neuropathy Continue with current insulin management Blood sugars controlled #Acute pancreatitis, resolved Lipase continues to trend down patient currently asymptomatic Patient could not get MRCP done due to having pacemaker #Hyperbilirubinemia, mostly of the conjugated type, liver enzymes are unremarkable except for elevated alkaline phosphatase, improving now This is an obstructive jaundice picture, due to edema from acute pancreatitis However patient is afebrile, no leukocytosis GI and general surgery are following DVT prophylaxis, heparin sc TID History of chronic hepatitis C Thrombocytopenia most likely secondary to underlying hepatitis C, now improving No evidence of active bleeding at this time Ok to transfer to med surg unit with tele discharge planning, patient agrees to go to SNF for short period , due to overall debility and dyspnea at rest due to deconditioning and poor cardiac function possible discharge on Friday follow up labs
[2017-09-21 17:18] LABS: Glucose,Whole Blood 321 mg/dL (75-99)
[2017-09-21 20:53] LABS: Glucose,Whole Blood 308 mg/dL (75-99)
[2017-09-21] MEDS: INSULIN DETEMIR 100 UNIT/ML 10 ML VIAL SQ SCH (21:45)
[2017-09-22] MEDS: HEPARIN SODIUM,PORCINE 5,000 UNIT/ML 1 ML VIAL SQ SCH ×3 (00:03→16:21)
[2017-09-22 07:28] LABS: Glucose,Whole Blood 162 mg/dL (75-99)
[2017-09-22] MEDS: PANTOPRAZOLE 40 MG/10 ML VIAL IVP SCH (08:05)
[2017-09-22] MEDS: CARVEDILOL 12.5 MG TAB PO SCH ×2 (08:05→16:20)
[2017-09-22] MEDS: FUROSEMIDE 10 MG/ML 10 ML VIAL IV SCH (08:05)
[2017-09-22] MEDS: INSULIN ASPART 100 UNIT/ML 1 ML 10 ML VIAL SQ SCH ×4 (08:05→21:37)
[2017-09-22] MEDS: ISOSORBIDE MONONITRATE ER 30 MG TAB.ER.24H PO SCH (08:05)
[2017-09-22] MEDS: hydrALAZINE HCL 50 MG TAB PO SCH ×2 (08:05→21:37)
[2017-09-22] MEDS: LACTULOSE 20 GM/30 ML CUP PO SCH ×2 (08:05→21:38)
[2017-09-22] MEDS ORDERED: hydrALAZINE HCL 50 MG TAB PO SCH (08:25)
[2017-09-22] MEDS ORDERED: ISOSORBIDE MONONITRATE ER 30 MG TAB.ER.24H PO SCH (08:26)
[2017-09-22] MEDS ORDERED: hydrALAZINE HCL 50 MG TAB PO STA (08:27)
[2017-09-22] MEDS ORDERED: ISOSORBIDE MONONITRATE ER 30 MG TAB.ER.24H PO STA (08:29)
--- NOTE | 2017-09-22 08:39 | P.PN ---
Subjective Progress Note Date: 09/22/17 Principal diagnosis: patient is seen and examined in follow up for acute pancreatitis, acute renal failure, and CHF exacerbation Patient seen and examined today, patient feels that he is back to his baseline today, tolerating PO intake, having minimal shortness of breath at rest but reports this is his baseline due to his advanced CHF, urine catheter shows clear yellow urine no hematuria , denies any abd pain, nausea or vomiting , tolerating PO intake. Objective - Vital Signs Vital signs: Vital Signs Temp 98.5 F 09/22/17 06:36 Pulse 64 09/22/17 06:36 Resp 18 09/22/17 06:36 BP 181/88 09/22/17 06:36 Pulse Ox 99 09/22/17 06:36 Intake & Output 09/21/17 09/22/17 09/22/17 18:59 06:59 18:59 Intake Total 666 15 Output Total 1800 3375 Balance -1134 -3360 Weight 98 kg Intake: IV 15 0.9@5 mls/hr 15 Oral 666 Output: Urine 1800 3375 Uretheral (Enriquez) 250 Other: Voiding Method Indwelling Catheter Indwelling Catheter - Exam Constitutional: Vital signs still showing elevated SBP readings, patient is conversant, not in any acute distress, oxygen via nasal canula Lungs: Good breath sounds bilaterally , minimal inspiratory rales at right lung base , clear to percussion, no wheezing no rhonchi Cardiovascular: Regular rate and rhythm, no murmurs, no gallops, no rubs, very slight edema over the left foot Gastrointestinal: No tenderness palpation of the abdomen, soft, bowel sounds are positive Extremities: No digital cyanosis peripheral pulses palpable and equal over bilateral radial arteries and dorsalis pedis artery, no calf muscle tenderness , capillary refill is immediate over bilateral big toes Psych: Alert, oriented to place, person, appropriate affect Enriquez catheter in place showing yellow urine now no further hematuria - Labs CBC & Chem 7: 09/21/17 05:37 09/21/17 05:37 Labs: Abnormal Lab Results - Last 24 Hours (Table) 09/21/17 09/21/17 09/21/17 Range/Units 12:07 17:10 20:50 POC Glucose (mg/dL) 260 H 321 H 308 H (75-99) mg/dL 09/22/17 Range/Units 07:23 POC Glucose (mg/dL) 162 H (75-99) mg/dL Microbiology - Last 24 Hours (Table) 09/15/17 13:20 Blood Culture - Final Blood No Growth after 144 hours Assessment and Plan Assessment: 72-year-old male with past medical history of congestive heart failure with left ventricular ejection fraction of 20%. patient presented to the hospital with abdominal pain found to have acute pancreatitis, he was also suspected to have appendicitis however that was ruled out by general surgery team , and surgery team thought it's an incidental finding of fecalith in the appendix without any active acute appendicitis, patient to continue to follow up with general surgery after discharge, patient received short course of Zosyn during this hospital stay. GI is assisting in management of his pancreatitis however patient cannot give MRCP due to having a pacemaker. Lipase has been trending down initially . Patient denies any more abdominal pain nausea or vomiting. patient tolerated PO intake, clinically his acute pancreatitis attack has resolved, however, his lipase today is trending up again. Patient also developed acute kidney injury and oliguria, which resulted in fluid overload and acute CHF exacerbation, MARGARITA due to 3rd spacing with decreased intravascular volume initially due to acute pancreatitis resulting in prerenal hypoperfusion . enriquez catheter inserted, which he self removed with balloon inflated, resulting in gross hematuria later. However, nephrology suggested aggressive diuresis before considering hemodialysis , and patient started making some urine. his breathing started to improve with aggressive diuresis, holidng IV fluids, and utilizing Bipap. Enriquez catheter maintained for accurate ins and outs. [facility] is [facility] , however, he is stable enough to be moved back to [facility] with tele. Patient responded to aggressive diuresis , and is not oliguric anymore. renal function continues to improve. Cardiology input was requested regarding his SOB at rest due to fluid overload and poor cardiac function, cardiology agreed with current management and will continue to follow up their recommendations On 09/21, all his labs are improving, patient condition is stable now, he will be transferred back to [facility] with telemetry, patient continued to be monitored in the hospital awaiting placement at subacute rehab due to poor cardiac function and limited functional capacity on 09/22 patient continues to improve , tolerating diet, plan for today to remove enriquez catheter and monitor for urinary retention, assess home oxygen need , advance his diet , some adjustement in his cardiac meds to achieve better blood pressure control Plan: #. Debility and deconditioning , with advanced CHF plans for placement at rehab #. Hypertension , accelerated still not optimally controlled made more adjustment to blood pressure medication s today increase hydralazin to 100 mg BID increased imdur to 60 mg daily #. Suspected sleep apnea recommended that the patient get evaluated for sleep apnea and to consider OP sleep study he is at risk of both (obstructive and central sleep apnea) # Acute hypoxic respiratory failure , resolved # Pulmonary edema due to acute CHF exacerbation (LVEF of 20% s/p ICD ) due to fluid overload, resolved #. Acute kidney injury , non-oliguric, resolved #. Metabolic acidosis secondary to acute renal failure, resolved #. Malignant hypertension with pulmonary edema DC iv diuresis , switch to PO lasix nephro following continue cardiac meds , coreg, imdur, continue with hydralazine (this is a new medication) Continue to monitor blood pressure closely with recent adjustment of his medications Continue with BiPAP at bedside to help with work of breathing #Gross hematuria secondary to traumatic removal of the Enriquez catheter by the patient, resolved Urology input noted discontinue enriquez cath and monitor for signs of urinary retention check bladder scan for PVR Hemoglobin stable #Diabetes mellitus with peripheral neuropathy Continue with current insulin management Blood sugars controlled #Acute pancreatitis, resolved Lipase continues to trend down patient currently asymptomatic Patient could not get MRCP done due to having pacemaker #Hyperbilirubinemia, mostly of the conjugated type, liver enzymes are unremarkable except for elevated alkaline phosphatase, improving now This is an obstructive jaundice picture, due to edema from acute pancreatitis However patient is afebrile, no leukocytosis GI and general surgery are following DVT prophylaxis, heparin sc TID History of chronic hepatitis C Thrombocytopenia most likely secondary to underlying hepatitis C, now improving No evidence of active bleeding at this time discharge planning, patient agrees to go to SNF for short period , due to overall debility and dyspnea at rest due to deconditioning and poor cardiac function possible discharge tomorrow follow up labs assess for home oxygen need Echo cardiogram report still pending
[2017-09-22] MEDS: FUROSEMIDE 40 MG TAB PO SCH ×2 (09:25→16:20)
[2017-09-22 09:47] LABS: Basophils % (A) 1 %; Eosinophils # (A) 0.2 k/uL (0-0.7); Eosinophils % (A) 2 %; HCT 38.5 % (39.0-53.0); HGB 12.4 gm/dL (13.0-17.5); Lymphocytes # (A) 1.4 k/uL (1.0-4.8); Lymphocytes % (A) 16 %; MCH 30.3 pg (25.0-35.0); MCHC 32.2 g/dL (31.0-37.0); MCV 94.1 fL (80.0-100.0); Mean Platelet Volume 10.6; Monocytes # (A) 0.6 k/uL (0-1.0); Monocytes % (A) 7 %; Neutrophils # (A) 6.2 k/uL (1.3-7.7); Neutrophils % (A) 72 %; Platelet Count 166 k/uL (150-450); RBC 4.09 m/uL (4.30-5.90); RDW 13.2 % (11.5-15.5); WBC 8.6 k/uL (3.8-10.6)
[2017-09-22 10:03] LABS: Albumin 3.5 g/dL (3.5-5.0); Calcium 9.4 mg/dL (8.4-10.2); Total Bilirubin 1.7 mg/dL (0.2-1.3); Total Protein 7.2 g/dL (6.3-8.2)
[2017-09-22 12:28] LABS: Glucose,Whole Blood 313 mg/dL (75-99)
--- NOTE | 2017-09-22 13:14 | ECHOF ---
Referral Reason:LV EF evaluation, SOB at rest MEASUREMENTS -------- HEIGHT: 172.7 cm WEIGHT: 112.9 kg BP: 170/81 RVIDd: 3.6 cm (< 3.3) IVSd: 1.4 cm (0.6 - 1.1) LVIDd: 5.3 cm (3.9 - 5.3) LVPWd: 1.4 cm (0.6 - 1.1) IVSs: 2.0 cm LVIDs: 3.5 cm LVPWs: 1.8 cm LA Diam: 4.3 cm (2.7 - 3.8) LAESV Index (A-L): 35.63 ml/m Ao Diam: 3.4 cm (2.0 - 3.7) AV Cusp: 2.2 cm (1.5 - 2.6) EPSS: 1.0 cm MV E Urbano: 1.00 m/s MV DecT: 351 ms MV A Urbano: 1.21 m/s MV E/A Ratio: 0.82 AV maxP.92 mmHg AV meanP.26 mmHg AR PHT: 920 ms RAP: 5.00 mmHg RVSP: 45.41 mmHg MV EF SLOPE: 67.24 mm/s (70 - 150) MV EXCURSION: 2.21 cm (> 18.000) FINDINGS -------- Sinus rhythm. This was a technically adequate study. The left ventricular size is normal. There is moderate concentric left ventricular hypertrophy. O verall left ventricular systolic function is normal with, an EF between 55 - 60 %. The right ventricle is mildly enlarged. LA is moderately dilated 34-39 ml/m2 The right atrium is normal in size. Aortic valve is trileaflet and is mildly thickened. There is mild aortic regurgitation. There is mild aortic stenosis present. Peak/mean gradient across the Aortic Valve is 18.92mmHg / 9.26mmHg. Mild mitral annular calcification present. There is trace to mild mitral regurgitation. Mild tricuspid regurgitation present. There is mild pulmonary hypertension. The right ventricular systolic pressure, as measured by Doppler, is 45.41mmHg. Trace/mild (physiologic) pulmonic regurgitation. The aortic root size is normal. Normal inferior vena cava with normal inspiratory collapse consistent with estimated right atrial pre ssure of 5 mmHg. The inferior vena cava is mildly dilated. There is no pericardial effusion. CONCLUSIONS -------- 1. Sinus rhythm. 2. This was a technically adequate study. 3. The left ventricular size is normal. 4. There is moderate concentric left ventricular hypertrophy. 5. Overall left ventricular systolic function is normal with, an EF between 55 - 60 %. 6. The right ventricle is mildly enlarged. 7. LA is moderately dilated 34-39 ml/m2 8. The right atrium is normal in size. 9. Aortic valve is trileaflet and is mildly thickened. 10. There is mild aortic regurgitation. 11. There is mild aortic stenosis present. 12. Peak/mean gradient across the Aortic Valve is 18.92mmHg / 9.26mmHg. 13. Mild mitral annular calcification present. 14. There is trace to mild mitral regurgitation. 15. Mild tricuspid regurgitation present. 16. There is mild pulmonary hypertension. 17. The right ventricular systolic pressure, as measured by Doppler, is 45.41mmHg. 18. Trace/mild (physiologic) pulmonic regurgitation. 19. The aortic root size is normal. 20. Normal inferior vena cava with normal inspiratory collapse consistent with estimated right atrial pressure of 5 mmHg. 21. The inferior vena cava is mildly dilated. 22. There is no pericardial effusion. TOMOGRAPHIC TECH: YOLI Alicea
--- NOTE | 2017-09-22 13:56 | P.PN ---
Subjective Progress Note Date: 09/22/17 72-year-old male seen and examined at bedside patient's tolerating oral liquids less short of breath this morning currently denying abdominal pain nausea vomiting the discharge plan is in progress patients being worked up to go to [facility] subacute rehab when bed available discussed with the patient the need to follow-up in the outpatient setting with surgical service Objective - Vital Signs Vital signs: Vital Signs Temp 98.5 F 09/22/17 06:36 Pulse 64 09/22/17 06:36 Resp 18 09/22/17 08:00 BP 181/88 09/22/17 06:36 Pulse Ox 99 09/22/17 06:36 Intake & Output 09/21/17 09/22/17 09/22/17 18:59 06:59 18:59 Intake Total 666 15 Output Total 1800 3375 1500 Balance -1270 -1354 -1500 Weight 98 kg Intake: IV 15 0.9@5 mls/hr 15 Oral 666 Output: Urine 1800 3375 1500 Uretheral (Elise) 250 Other: Voiding Method Indwelling Catheter Indwelling Catheter # Bowel Movements 2 - Exam Physical exam: 72-year-old male more awake and alert this morning cooperative oriented to self and place Lungs posterior decreased at the bases on room air sats are 94% Heart S1-S2 audible and regular Abdomen softer less distended compared to prior assessment bowel tones active no nausea no vomiting indwelling Elise catheter urine clear no hematuria noted Extremity no edema noted tenderness to the bilateral lower extreme - Labs CBC & Chem 7: 09/22/17 09:05 09/22/17 09:05 Labs: Abnormal Lab Results - Last 24 Hours (Table) 09/21/17 09/21/17 09/22/17 Range/Units 17:10 20:50 07:23 RBC (4.30-5.90) m/uL Hgb (13.0-17.5) gm/dL Hct (39.0-53.0) % BUN (9-20) mg/dL Glucose (74-99) mg/dL POC Glucose (mg/dL) 321 H 308 H 162 H (75-99) mg/dL Total Bilirubin (0.2-1.3) mg/dL Alkaline Phosphatase (38-126) U/L 09/22/17 09/22/17 09/22/17 Range/Units 09:05 09:05 12:06 RBC 4.09 L (4.30-5.90) m/uL Hgb 12.4 L (13.0-17.5) gm/dL Hct 38.5 L (39.0-53.0) % BUN 26 H (9-20) mg/dL Glucose 301 H (74-99) mg/dL POC Glucose (mg/dL) 313 H (75-99) mg/dL Total Bilirubin 1.7 H (0.2-1.3) mg/dL Alkaline Phosphatase 349 H (38-126) U/L Microbiology - Last 24 Hours (Table) 09/15/17 13:20 Blood Culture - Final Blood No Growth after 144 hours Assessment and Plan Assessment: Impression Present on admission abdominal pain CAT scan abdomen pelvis reported appendicolith possible acute early appendicitis not ruled out no fever no white count Hyperkalemia Obesity BMI 36 Type 2 diabetes with episodes of hyperglycemia Prior history of alcohol intake Depressive disorder nonspecified Present on admission elevated lipase and amylase consistent with acute pancreatitis Acute kidney injury Hyperkalemia CAT scan abdomen and pelvis incidental finding appendicoth with no evidence of an acute surgical abdomen no fever no white count Acute exacerbation of systolic heart failure EF 20% status post ICD likely due to fluid overload Gross hematuria likely related to self removal of his indwelling Elise catheter with the balloon inflated Echocardiogram moderate concentric left ventricular hypertrophy with an EF between 55 and 60% Plan We'll sign off re-eval as needed surgical perspective felt to be stable to be transferred to [facility]acute rehab Patient is felt to be at a moderate to high risk for any surgical intervention given patient's comorbidities given patient's systolic heart failure exacerbation with worsening of the renal status with fluid overload No plan for a surgical intervention at this time IV fluid for hydration Will follow with you DVT and GI prophylaxis GI service indicates clinically ERCP is not indicated at this time total bilirubin slowly improving Defer to the attending to address medical issues Progress note dictated for The above impression and plan of care have been discussed and directed by signing physician. Deepa Richardson nurse practitioner acting as scribe for signing physician.
[2017-09-22] MEDS ORDERED: LOPERAMIDE 2 MG CAP PO PRN (14:29)
[2017-09-22 14:39] VITALS: BMI 32.8
[2017-09-22 17:22] LABS: Glucose,Whole Blood 190 mg/dL (75-99)
[2017-09-22 21:09] LABS: Glucose,Whole Blood 331 mg/dL (75-99)
[2017-09-22] MEDS: INSULIN DETEMIR 100 UNIT/ML 10 ML VIAL SQ SCH (21:38)
--- NOTE | 2017-09-22 23:00 | PN ---
PROGRESS NOTE Patient was seen this morning. He was sitting in a bedside chair. He is comfortable, not in any acute distress. The patient's renal function has improved significantly over the weekend. His serum creatinine is down to 1.03. Lasix has been decreased and switched to p.o. The patient denies any significant complaints. He did receive 1 dose of IV Lasix early this morning. The patient has an indwelling Elise catheter. Urine output for 24 hours was about 5 L. EXAMINATION: Blood pressure is 171/84. Heart rate of 67 per minute. Patient is afebrile. Examination of the heart S1, S2. Examination lungs bilateral breath sounds are heard. Abdomen is soft, nontender. Examination lower extremities shows 1+ edema bilaterally. [employer] exam is grossly intact. LABS: Hemoglobin 12.4. Creatinine is 1.03, BUN 26, sodium 142, potassium 5.0. ASSESSMENT: 1. Acute kidney injury secondary to acute tubular necrosis, currently nonoliguric and current significantly improved. 2. Volume overload, significantly improved. The patient did receive IV Lasix this morning. He has had a good urine output. I agree with changing the diuretics to p.o. 3. Mild hyperkalemia, currently improved. 4. Metabolic acidosis from renal failure as well as underlying pancreatitis, now improved. 5. Hypertension with recent increase in medications including hydralazine and Coreg. Continue to monitor and continue off of sodium bicarb. MMODL / IJN: [id number] /
[2017-09-23] MEDS: HEPARIN SODIUM,PORCINE 5,000 UNIT/ML 1 ML VIAL SQ SCH ×4 (00:10→23:33)
[2017-09-23 07:05] LABS: Glucose,Whole Blood 277 mg/dL (75-99)
[2017-09-23] MEDS: FUROSEMIDE 40 MG TAB PO SCH (08:02)
[2017-09-23] MEDS: hydrALAZINE HCL 50 MG TAB PO SCH ×3 (08:02→21:17)
[2017-09-23] MEDS: ISOSORBIDE MONONITRATE ER 60 MG TAB.ER.24H PO SCH (08:02)
[2017-09-23] MEDS: CARVEDILOL 12.5 MG TAB PO SCH ×2 (08:02→18:26)
[2017-09-23] MEDS: INSULIN ASPART 100 UNIT/ML 1 ML 10 ML VIAL SQ SCH ×4 (08:02→21:16)
[2017-09-23] MEDS: LACTULOSE 20 GM/30 ML CUP PO SCH (08:03)
[2017-09-23] MEDS: PANTOPRAZOLE 40 MG/10 ML VIAL IVP SCH (08:03)
--- NOTE | 2017-09-23 10:53 | P.PN ---
Subjective Progress Note Date: 09/23/17 Principal diagnosis: Acute pancreatitis No morning chemistries to review. Yesterday total bilirubin improved 1.7. AST ALT within normal limits. Alkaline phosphatase 349. Possible discharge to rehab today. Denies abdominal pain. Objective - Vital Signs Vital signs: Vital Signs Temp 97.1 F L 09/23/17 07:00 Pulse 70 09/23/17 07:00 Resp 18 09/23/17 07:00 BP 189/95 09/23/17 07:00 Pulse Ox 96 09/23/17 07:00 Intake & Output 09/22/17 09/23/17 09/23/17 18:59 06:59 18:59 Output Total 1500 Balance -1500 Weight 98 kg 105.5 kg Output: Urine 1500 Other: Voiding Method Bedside Commode # Voids 1 2 # Bowel Movements 1 1 - Exam General appearance: The patient is alert, agitated in no acute distress. HET: Head is normocephalic and atraumatic. Pupils are equal and reactive. Sclerae anicteric. Oropharynx is clear without lesions. Neck: Supple without lymphadenopathy. Trachea midline. Heart: S1 S2. Regular rate and rhythm. Lungs: Poor inspiratory effort. Diminished in bases bilaterally. No crackles or wheezes are heard. Abdomen: Soft, nontender, with bloatedness distention hypoactive bowel sounds. No peritoneal signs. No palpable organomegaly or masses. Extremities: Normal skin color and turgor. No cyanosis, rash, ulceration, clubbing, or edema. Radial and pedal pulses are 2/4 bilaterally. Neurological: No focal deficits. Strength and sensation are grossly intact. - Labs CBC & Chem 7: 09/22/17 09:05 09/22/17 09:05 Labs: Abnormal Lab Results - Last 24 Hours (Table) 09/22/17 09/22/17 09/22/17 Range/Units 12:06 17:03 21:07 POC Glucose (mg/dL) 313 H 190 H 331 H (75-99) mg/dL 09/23/17 Range/Units 07:01 POC Glucose (mg/dL) 277 H (75-99) mg/dL Assessment and Plan (1) Acute pancreatitis Narrative/Plan: 72-year-old male admitted with acute abdominal pain elevated pancreatic and liver enzymes consistent with acute moderate to severe pancreatitis. No mentioning of gallstones on ultrasound or CAT scan with elevated hyperbilirubinemia and creatinine. Current Visit: Yes Status: Acute Code(s): K85.90 - ACUTE PANCREATITIS WITHOUT NECROSIS OR INFECTION, UNSP SNOMED Code(s): 946905170 (2) Elevated serum creatinine Current Visit: Yes Status: Acute Code(s): R79.89 - OTHER SPECIFIED ABNORMAL FINDINGS OF BLOOD CHEMISTRY SNOMED Code(s): 988848923 (3) Elevated liver enzymes Current Visit: Yes Status: Acute Code(s): R74.8 - ABNORMAL LEVELS OF OTHER SERUM ENZYMES SNOMED Code(s): 162396211 (4) Jaundice Narrative/Plan: Improved bilirubin suspect from peripancreatic edema improving Current Visit: Yes Status: Acute Code(s): R17 - UNSPECIFIED JAUNDICE SNOMED Code(s): 09598772 (5) Appendicolith Narrative/Plan: Possible early acute appendicitis being monitored closely by general surgery presently without fever or abdominal pain. Current Visit: Yes Status: Acute Code(s): K38.9 - DISEASE OF APPENDIX, UNSPECIFIED SNOMED Code(s): 32021603 (6) Obesity (BMI 30-39.9) Current Visit: Yes Status: Chronic Code(s): E66.9 - OBESITY, UNSPECIFIED SNOMED Code(s): 366621847 (7) Hyperkalemia Current Visit: Yes Status: Acute Code(s): E87.5 - HYPERKALEMIA SNOMED Code (s): 91848950 (8) Diabetes mellitus Current Visit: Yes Status: Chronic Code(s): E11.9 - TYPE 2 DIABETES MELLITUS WITHOUT COMPLICATIONS SNOMED Code(s): 74396374 (9) Hepatitis C antibody test positive Current Visit: Yes Status: Acute Code(s): R76.8 - OTHER SPECIFIED ABNORMAL IMMUNOLOGICAL FINDINGS IN SERUM SNOMED Code(s): 901649609 (10) Hyperammonemia Narrative/Plan: Possible underlying liver disease Current Visit: Yes Status: Acute Code(s): E72.20 - DISORDER OF UREA CYCLE METABOLISM, UNSPECIFIED SNOMED Code(s): 4885040 Plan: 1. Discharge per medicine. Return to office after discharge for follow-up. Assessment and plan of care discussed with Dr. Crystal.
--- NOTE | 2017-09-23 11:57 | P.DS ---
Providers Date of admission: 09/13/17 09:33 Attending physician: Jonathan Sams MD Consults: 09/13/17 10:31 Consult Physician Routine Consulting Provider: Hollis Macdonald Consult Reason/Comments: pancreatitis Do you want consulting provider notified?: Yes Consult Physician Urgent Consulting Provider: Dina Chang Consult Reason/Comments: appy,pancreatitis Do you want consulting provider notified?: Yes 09/15/17 12:37 Consult Physician Routine Consulting Provider: Jacob Ruiz Consult Reason/Comments: MARGARITA / metabolic acidosis Do you want consulting provider notified?: Yes 09/19/17 09:04 Consult Physician Routine Consulting Provider: Dario Sargent Consult Reason/Comments: hematuria , enriquez pulled out with inflated balloon Do you want consulting provider notified?: Yes 09/19/17 09:20 Consult Physician Routine Consulting Provider: Osvaldo Castañeda Consult Reason/Comments: SOB at rest, systolic CHF with LVEF 20% Do you want consulting provider notified?: Yes Primary care physician: [facility] Hospital Course: Diagnosis at discharge #. Debility and deconditioning , with advanced CHF plans for placement at rehab #. Hypertension , accelerated, better controlled now restarted lozartan low dose , and spironolactone #. Suspected sleep apnea recommended that the patient get evaluated for sleep apnea and to consider OP sleep study he is at risk of both (obstructive and central sleep apnea) # Acute hypoxic respiratory failure , resolved # Pulmonary edema due to acute CHF exacerbation (LVEF of 20% s/p ICD ) due to fluid overload, resolved 2D echocardiogram showed LVEF of 55-60% 09/19/2017 #. Acute kidney injury , non-oliguric, resolved #. Metabolic acidosis secondary to acute renal failure, resolved #. Malignant hypertension with pulmonary edema continue PO diuresis #Gross hematuria secondary to traumatic removal of the Enriquez catheter by the patient, resolved #Diabetes mellitus with peripheral neuropathy #Acute pancreatitis, resolved #Hyperbilirubinemia, mostly of the conjugated type, liver enzymes are unremarkable except for elevated alkaline phosphatase, improving now History of chronic hepatitis C Thrombocytopenia most likely secondary to underlying hepatitis C, now improving 72-year-old male with past medical history of congestive heart failure with left ventricular ejection fraction of 20%. patient presented to the hospital with abdominal pain found to have acute pancreatitis, he was also suspected to have appendicitis however that was ruled out by general surgery team , and surgery team thought it's an incidental finding of fecalith in the appendix without any active acute appendicitis, patient to continue to follow up with general surgery after discharge, patient received short course of Zosyn during this hospital stay. GI is assisting in management of his pancreatitis however patient cannot give MRCP due to having a pacemaker. Lipase has been trending down initially . Patient denies any more abdominal pain nausea or vomiting. patient tolerated PO intake, clinically his acute pancreatitis attack has resolved, however, his lipase today is trending up again. Patient also developed acute kidney injury and oliguria, which resulted in fluid overload and acute CHF exacerbation, MARGARITA due to 3rd spacing with decreased intravascular volume initially due to acute pancreatitis resulting in prerenal hypoperfusion . enriquez catheter inserted, which he self removed with balloon inflated, resulting in gross hematuria later. However, nephrology suggested aggressive diuresis before considering hemodialysis , and patient started making some urine. his breathing started to improve with aggressive diuresis, holidng IV fluids, and utilizing Bipap. Enriquez catheter maintained for accurate ins and outs. patient is currently being managed at [facility] , however, he is stable enough to be moved back to [facility] with tele. Patient responded to aggressive diuresis , and is not oliguric anymore. renal function continues to improve. Cardiology input was requested regarding his SOB at rest due to fluid overload and poor cardiac function, cardiology agreed with current management and will continue to follow up their recommendations On 09/21, all his labs are improving, patient condition is stable now, he will be transferred back to [facility] with telemetry, patient continued to be monitored in the hospital awaiting placement at subacute rehab due to poor cardiac function and limited functional capacity on 09/22 patient continues to improve , tolerating diet, plan for today to remove Enriquez catheter and monitor for urinary retention, assess home oxygen need , advance his diet , some adjustement in his cardiac meds to achieve better blood pressure control 09/23 patient was seen and examined , continues to be stable , however, elevated blood pressure but asymptomatic. denies any more diarrhea , denies abd pain, nausea or vomiting, denies any chest pain, denies trouble breathing at rest. Denies urinary retention . Constitutional: Vital signs, patient is conversant, not in any acute distress, oxygen via nasal canula Lungs: Good breath sounds bilaterally, minimal inspiratory rales at right lung base, clear to percussion, no wheezing no rhonchi Cardiovascular: Regular rate and rhythm, no murmurs, no gallops, no rubs, no peripheral edema Gastrointestinal: No tenderness palpation of the abdomen, soft, bowel sounds are positive Extremities: No digital cyanosis peripheral pulses palpable and equal over bilateral radial arteries and dorsalis pedis artery, no calf muscle tenderness , capillary refill is immediate over bilateral big toes Psych: Alert, oriented to place, person, appropriate affect Enriquez catheter in place showing yellow urine now no further hematuria Patient stable for discharge, he will be transferred to rehab. today medication reconciliation performed 40 minutes were spent discharging this patient, and more than 50% of the time was spent in counseling the patient and family and in coordinating care. Pertinent Studies: 2D echocardiogram showed LVEF of 55-60% 09/19/2017 Patient Condition at Discharge: Stable Plan - Discharge Summary New Discharge Prescriptions: New Furosemide [Lasix] 40 mg PO BID@0900,1600 tab hydrALAZINE HCL [Apresoline] 100 mg PO TID tab Insulin Detemir [Levemir] 12 unit SQ HS syr Isosorbide Mononitrate ER [Imdur] 60 mg PO DAILY tab.er.24h Pantoprazole [Protonix] 40 mg PO AC-BRKFST tablet. Continue Nitroglycerin Sl Tabs [Nitrostat] 0.4 mg SUBLINGUAL Q5M PRN PRN Reason: Angina Carvedilol 25 mg PO AC-BID Docusate [Colace] 100 - 200 mg PO DAILY Spironolactone [Aldactone] 25 mg PO DAILY Losartan [Cozaar] 12.5 mg PO DAILY INSULIN LISPRO (humaLOG) [humaLOG] 8 - 21 units SQ AC-TID Discontinued HYDROcodone/APAP 5-325MG [Kellogg 5-325] 1 tab PO Q6H PRN PRN Reason: Pain Isosorbide Mononitrate ER [Imdur] 30 mg PO DAILY #30 tab.er.24h Insulin Glargine [Lantus] 35 unit SQ QAM Ibuprofen [Motrin] 400 mg PO Q6HR PRN PRN Reason: Pain Discharge Medication List Nitroglycerin Sl Tabs [Nitrostat] 0.4 mg SUBLINGUAL Q5M PRN 11/28/13 [History] Carvedilol 25 mg PO AC-BID 01/24/15 [History] Docusate [Colace] 100 - 200 mg PO DAILY 06/07/15 [History] INSULIN LISPRO (humaLOG) [humaLOG] 8 - 21 units SQ AC-TID 09/13/17 [History] Losartan [Cozaar] 12.5 mg PO DAILY 09/13/17 [History] Spironolactone [Aldactone] 25 mg PO DAILY 09/13/17 [History] Furosemide [Lasix] 40 mg PO BID@0900,1600 tab 09/23/17 [Rx] Insulin Detemir [Levemir] 12 unit SQ HS syr 09/23/17 [Rx] Isosorbide Mononitrate ER [Imdur] 60 mg PO DAILY tab.er.24h 09/23/17 [Rx] Pantoprazole [Protonix] 40 mg PO AC-BRKFST tablet. 09/23/17 [Rx] hydrALAZINE HCL [Apresoline] 100 mg PO TID tab 09/23/17 [Rx] Follow up Appointment(s)/Referral(s): Hollis Macdonald MD [STAFF PHYSICIAN] - 10/06/17 4:00 pm Dina Chang MD [STAFF PHYSICIAN] - 2 Weeks Jimi Hubbadr DO [Primary Care Provider] - 1-2 days [facility], [NON-STAFF] - 1 Week Jacob Ruiz DO [STAFF PHYSICIAN] - 1 Week Patient Instructions/Handouts: Pancreatitis (DC) Activity/Diet/Wound Care/Special Instructions: Diabetic, cardiac diet with fluid restriction to 2 Liters daily Heart failure booklet and diabetic education booklet given and reviewed. Refused [employer]. Activity as tolerated, up with assist. Discharge Disposition: TRANSFER TO SNF/ECF
[2017-09-23 12:38] LABS: Glucose,Whole Blood 309 mg/dL (75-99)
[2017-09-23] MEDS: SPIRONOLACTONE 25 MG TAB PO SCH (13:06)
[2017-09-23] MEDS: LOSARTAN 25 MG TAB PO SCH (13:06)
[2017-09-23 17:31] LABS: Glucose,Whole Blood 355 mg/dL (75-99)
[2017-09-23] MEDS ORDERED: FUROSEMIDE 10 MG/ML 10 ML VIAL IV STA (20:10)
[2017-09-23 20:37] LABS: Glucose,Whole Blood 425 mg/dL (75-99)
[2017-09-23] MEDS: INSULIN DETEMIR 100 UNIT/ML 10 ML VIAL SQ SCH (21:14)
--- NOTE | 2017-09-23 21:16 | PN ---
PROGRESS NOTE Patient is seen for followup for acute kidney injury and volume overload. He is currently maintained on oral Lasix. His volume status had improved significantly. However, this morning patient was again mildly short of breath. He was not in any acute distress. EXAMINATION: Blood pressure this morning was 143/70, heart rate is 72 per minute. Patient is afebrile. Examination of the heart S1, S2. Examination of the lungs bilateral breath sounds are heard. Abdomen is soft, nontender, distended. Examination of lower extremity shows edema 1+ bilaterally. LABS: Not available from today. Serum creatinine was 1.03 yesterday. ASSESSMENT: 1. Acute kidney injury, acute tubular necrosis, currently significantly improved. 2. Volume overload, also improved. However, today patient appears to be mildly volume overloaded as compared to yesterday. I will give a dose of IV Lasix and continue with the oral diuretics for now. Will likely increase his oral Lasix tomorrow to 40 b.i.d. 3. Acute pancreatitis with no evidence of biliary obstruction, currently improving. 4. Hyperkalemia associated with acute kidney injury, currently improved. 5. Hyperbilirubinemia, also improving. PLAN: Repeat IV Lasix today and the patient can be discharged on at least 40 mg b.i.d. Lasix tomorrow. MMODL / IJN: [id number] /
[2017-09-23] MEDS ORDERED: FUROSEMIDE 20 MG TAB PO STA (22:43)
[2017-09-24 01:35] LABS: Glucose,Whole Blood 248 mg/dL (75-99)
[2017-09-24 06:49] LABS: Glucose,Whole Blood 198 mg/dL (75-99)
[2017-09-24] MEDS: ACETAMINOPHEN TAB 325 MG TAB PO PRN ×2 (07:00→22:39)
[2017-09-24] MEDS: PANTOPRAZOLE 40 MG TABLET PO SCH (08:19)
[2017-09-24] MEDS: CARVEDILOL 12.5 MG TAB PO SCH ×2 (08:19→16:55)
[2017-09-24] MEDS: LOSARTAN 25 MG TAB PO SCH (08:19)
[2017-09-24] MEDS: INSULIN ASPART 100 UNIT/ML 1 ML 10 ML VIAL SQ SCH ×5 (08:19→22:30)
[2017-09-24] MEDS: hydrALAZINE HCL 50 MG TAB PO SCH ×3 (08:19→21:17)
[2017-09-24] MEDS: ISOSORBIDE MONONITRATE ER 60 MG TAB.ER.24H PO SCH (08:20)
[2017-09-24] MEDS: HEPARIN SODIUM,PORCINE 5,000 UNIT/ML 1 ML VIAL SQ SCH ×3 (08:20→22:37)
[2017-09-24] MEDS: FUROSEMIDE 40 MG TAB PO SCH ×2 (08:20→16:55)
[2017-09-24] MEDS: SPIRONOLACTONE 25 MG TAB PO SCH (08:22)
[2017-09-24] MEDS ORDERED: FUROSEMIDE 40 MG TAB PO SCH (09:00)
[2017-09-24] MEDS: INSULIN DETEMIR 100 UNIT/ML 10 ML VIAL SQ SCH ×2 (09:11→22:29)
[2017-09-24 09:28] LABS: Basophils % (A) 0 %; Eosinophils # (A) 0.2 k/uL (0-0.7); Eosinophils % (A) 2 %; HCT 37.4 % (39.0-53.0); HGB 11.6 gm/dL (13.0-17.5); Lymphocytes # (A) 1.5 k/uL (1.0-4.8); Lymphocytes % (A) 19 %; MCH 29.2 pg (25.0-35.0); MCV 94.2 fL (80.0-100.0); Mean Platelet Volume 11.2; Monocytes # (A) 0.5 k/uL (0-1.0); Monocytes % (A) 7 %; Neutrophils # (A) 5.3 k/uL (1.3-7.7); Neutrophils % (A) 69 %; Platelet Count 162 k/uL (150-450); RBC 3.96 m/uL (4.30-5.90); RDW 13.3 % (11.5-15.5); WBC 7.7 k/uL (3.8-10.6)
[2017-09-24 10:21] LABS: Albumin 3.3 g/dL (3.5-5.0); Calcium 9.1 mg/dL (8.4-10.2); Potassium 4.6 mmol/L (3.5-5.1); Total Bilirubin 1.5 mg/dL (0.2-1.3)
--- NOTE | 2017-09-24 10:57 | XR ---
EXAMINATION TYPE: XR chest 1V DATE OF EXAM: 09/24/2017 COMPARISON: 09/18/2017 HISTORY: Shortness of breath TECHNIQUE: Single frontal view of the chest is obtained. FINDINGS: There is a diffuse interstitial pattern with bilateral infiltrate and pleural effusion. Ca rdiac device and cardiomegaly noted. No pneumothorax. IMPRESSION: 1. Bilateral infiltrate and pleural effusion correlate for CHF.
[2017-09-24 12:07] LABS: Glucose,Whole Blood 420 mg/dL (75-99)
[2017-09-24] MEDS ORDERED: FUROSEMIDE 10 MG/ML 4 ML VIAL IV STA (13:57)
--- NOTE | 2017-09-24 14:06 | P.PN ---
Subjective Progress Note Date: 09/23/17 (Patient did not end up getting discharged on 09/23 ) Principal diagnosis: patient is seen and examined in follow up for acute pancreatitis, acute renal failure, and CHF exacerbation Patient seen and examined today, patient feels that he is back to his baseline , tolerating PO intake, having minimal shortness of breath at rest but reports this is his baseline due to his advanced CHF, urine catheter was discontinued, patient urinating with no issues. Denies any nausea vomiting, denies any abdominal pain. His tolerating diet Objective - Vital Signs Vital signs: Vital Signs Temp 100.0 F H 09/24/17 09:58 Pulse 72 09/24/17 06:27 Resp 28 H 09/24/17 06:27 BP 162/73 09/24/17 06:27 Pulse Ox 92 L 09/24/17 06:27 Intake & Output 09/23/17 09/24/17 09/24/17 18:59 06:59 18:59 Intake Total 720 Balance 720 Weight 99 kg Intake: Oral 720 Other: Voiding Method Toilet # Voids 2 5 # Bowel Movements 0 - Exam Constitutional: Vital signs still blood pressure is improving, patient is conversant, not in any acute distress, oxygen via nasal canula Lungs: Good breath sounds bilaterally , minimal inspiratory rales at right lung base , clear to percussion, no wheezing no rhonchi Cardiovascular: Regular rate and rhythm, no murmurs, no gallops, no rubs Gastrointestinal: No tenderness palpation of the abdomen, soft, bowel sounds are positive Extremities: No digital cyanosis peripheral pulses palpable and equal over bilateral radial arteries and dorsalis pedis artery, no calf muscle tenderness , capillary refill is immediate over bilateral big toes Psych: Alert, oriented to place, person, appropriate affect - Labs CBC & Chem 7: 09/24/17 09:05 09/24/17 09:05 Labs: Abnormal Lab Results - Last 24 Hours (Table) 09/23/17 09/23/17 09/24/17 Range/Units 17:25 20:36 01:33 RBC (4.30-5.90) m/uL Hgb (13.0-17.5) gm/dL Hct (39.0-53.0) % Carbon Dioxide (22-30) mmol/L Glucose (74-99) mg/dL POC Glucose (mg/dL) 355 H 425 H 248 H (75-99) mg/dL Total Bilirubin (0.2-1.3) mg/dL Alkaline Phosphatase (38-126) U/L Albumin (3.5-5.0) g/dL 09/24/17 09/24/17 09/24/17 Range/Units 06:45 09:05 09:05 RBC 3.96 L (4.30-5.90) m/uL Hgb 11.6 L (13.0-17.5) gm/dL Hct 37.4 L (39.0-53.0) % Carbon Dioxide 31 H (22-30) mmol/L Glucose 249 H (74-99) mg/dL POC Glucose (mg/dL) 198 H (75-99) mg/dL Total Bilirubin 1.5 H (0.2-1.3) mg/dL Alkaline Phosphatase 286 H (38-126) U/L Albumin 3.3 L (3.5-5.0) g/dL 09/24/17 Range/Units 12:04 RBC (4.30-5.90) m/uL Hgb (13.0-17.5) gm/dL Hct (39.0-53.0) % Carbon Dioxide (22-30) mmol/L Glucose (74-99) mg/dL POC Glucose (mg/dL) 420 H (75-99) mg/dL Total Bilirubin (0.2-1.3) mg/dL Alkaline Phosphatase (38-126) U/L Albumin (3.5-5.0) g/dL Assessment and Plan Assessment: 72-year-old male with past medical history of congestive heart failure with left ventricular ejection fraction of 20%. patient presented to the hospital with abdominal pain found to have acute pancreatitis, he was also suspected to have appendicitis however that was ruled out by general surgery team , and surgery team thought it's an incidental finding of fecalith in the appendix without any active acute appendicitis, patient to continue to follow up with general surgery after discharge, patient received short course of Zosyn during this hospital stay. GI is assisting in management of his pancreatitis however patient cannot give MRCP due to having a pacemaker. Lipase has been trending down initially . Patient denies any more abdominal pain nausea or vomiting. patient tolerated PO intake, clinically his acute pancreatitis attack has resolved, however, his lipase today is trending up again. Patient also developed acute kidney injury and oliguria, which resulted in fluid overload and acute CHF exacerbation, MARGARITA due to 3rd spacing with decreased intravascular volume initially due to acute pancreatitis resulting in prerenal hypoperfusion . enriquez catheter inserted, which he self removed with balloon inflated, resulting in gross hematuria later. However, nephrology suggested aggressive diuresis before considering hemodialysis , and patient started making some urine. his breathing started to improve with aggressive diuresis, holidng IV fluids, and utilizing Bipap. Enriquez catheter maintained for accurate ins and outs. [facility] , however, he is stable enough to be moved back to [facility] with tele. Patient responded to aggressive diuresis , and is not oliguric anymore. renal function continues to improve. Cardiology input was requested regarding his SOB at rest due to fluid overload and poor cardiac function, cardiology agreed with current management and will continue to follow up their recommendations On 09/21, all his labs are improving, patient condition is stable now, he will be transferred back to [facility] with telemetry, patient continued to be monitored in the hospital awaiting placement at subacute rehab due to poor cardiac function and limited functional capacity on 09/22 patient continues to improve , tolerating diet, plan for today to remove enriquez catheter and monitor for urinary retention, assess home oxygen need , advance his diet , some adjustment in his cardiac meds to achieve better blood pressure control 09/23 patient was supposed to be discharged however did not end up leaving as his long term did not receive his BiPAP which was supposed to be delivered prior to receiving the patient. Blood pressure now is better controlled, I resumed patient's home medications which were on hold due to acute kidney injury patient continued losartan and the spironolactone. His diuretic was switched to oral. Further adjustments are made to patient insulin regimen Plan: #. Debility and deconditioning plans for placement at rehab #. Hypertension , accelerated still not optimally controlled made more adjustment to blood pressure medications today hydralazin to 100 mg TID imdur to 60 mg daily Resume losartan and spironolactone #. Suspected sleep apnea recommended that the patient get evaluated for sleep apnea and to consider OP sleep study he is at risk of both (obstructive and central sleep apnea) #Diabetes mellitus with peripheral neuropathy Continue with current insulin management Further adjustments made for patient insulin regimen due to hyperglycemia # Acute hypoxic respiratory failure , resolved # Pulmonary edema due to acute diastolic CHF exacerbation (LVEF of 20% s/p ICD , 2D echocardiogram 09/19/2017 showed LVEF of 55-60% ) due to fluid overload, resolved #. mild pulmonary hypertension #. Acute kidney injury , non-oliguric, resolved #. Metabolic acidosis secondary to acute renal failure, resolved #. Malignant hypertension with pulmonary edema PO lasix nephro following continue cardiac meds , coreg, imdur, continue with hydralazine Continue to monitor blood pressure closely with recent adjustment of his medications, restarted losartan and spironolactone Continue with BiPAP at bedside to help with work of breathing 2D echocardiogram showed LVEF of 55-60% 09/19/2017 #Gross hematuria secondary to traumatic removal of the Enriquez catheter by the patient, resolved Urology input noted Hemoglobin stable enriquez cath successfully discontinued #Acute pancreatitis, resolved Lipase continues to trend down patient currently asymptomatic Patient could not get MRCP done due to having pacemaker #Hyperbilirubinemia, mostly of the conjugated type, liver enzymes are unremarkable except for elevated alkaline phosphatase, improving now This is an obstructive jaundice picture, due to edema from acute pancreatitis However patient is afebrile, no leukocytosis GI and general surgery are following DVT prophylaxis, heparin sc TID History of chronic hepatitis C Thrombocytopenia most likely secondary to underlying hepatitis C, now improving No evidence of active bleeding at this time Patient was supposed to be discharged however long term felt to receive his BiPAP so. Patient discharge was canceled patient stayed hospitalized Possible discharge tomorrow
[2017-09-24] MEDS ORDERED: IPRATROPIUM-ALBUTEROL 3 ML NEB INHALATION PRN (14:39)
--- NOTE | 2017-09-24 14:39 | P.PN ---
Subjective Progress Note Date: 09/24/17 Principal diagnosis: patient is seen and examined in follow up for acute pancreatitis, acute renal failure, and fluid overload, hypertension Patient seen and examined today, discharge was not done yesterday , as patient equipments were not delivered to his NH However, he spiked a fever today, he denies any cough, chest pain or phlegm production, he denies any hematuria, dysuria, or changes in his urine habits, except he is urinating alot due to diurestics. he denies any abd pain. noman otherwise feels well, still short of breath but he claims that this is his baseline. I think patient has a very poor insight about his overall well being . Objective - Vital Signs Vital signs: Vital Signs Temp 100.0 F H 09/24/17 09:58 Pulse 72 09/24/17 06:27 Resp 28 H 09/24/17 06:27 BP 162/73 09/24/17 06:27 Pulse Ox 92 L 09/24/17 06:27 Intake & Output 09/23/17 09/24/17 09/24/17 18:59 06:59 18:59 Intake Total 720 Balance 720 Weight 99 kg Intake: Oral 720 Other: Voiding Method Toilet # Voids 2 5 # Bowel Movements 0 - Exam Constitutional: Vital signs showing that his blood pressure is under better control and improving , patient is conversant, not in any acute distress, oxygen via nasal canula Lungs: decrease breath sounds bilaterally, with inspiratory rales at lung bases. Cardiovascular: Regular rate and rhythm, no murmurs, no gallops, no rubs Gastrointestinal: No tenderness palpation of the abdomen, soft, bowel sounds are positive Extremities: No digital cyanosis peripheral pulses palpable and equal over bilateral radial arteries and dorsalis pedis artery, no calf muscle tenderness , capillary refill is immediate over bilateral big toes Psych: Alert, oriented to place, person, appropriate affect - Labs CBC & Chem 7: 09/24/17 09:05 09/24/17 09:05 Labs: Abnormal Lab Results - Last 24 Hours (Table) 09/23/17 09/23/17 09/24/17 Range/Units 17:25 20:36 01:33 RBC (4.30-5.90) m/uL Hgb (13.0-17.5) gm/dL Hct (39.0-53.0) % Carbon Dioxide (22-30) mmol/L Glucose (74-99) mg/dL POC Glucose (mg/dL) 355 H 425 H 248 H (75-99) mg/dL Total Bilirubin (0.2-1.3) mg/dL Alkaline Phosphatase (38-126) U/L Albumin (3.5-5.0) g/dL 09/24/17 09/24/17 09/24/17 Range/Units 06:45 09:05 09:05 RBC 3.96 L (4.30-5.90) m/uL Hgb 11.6 L (13.0-17.5) gm/dL Hct 37.4 L (39.0-53.0) % Carbon Dioxide 31 H (22-30) mmol/L Glucose 249 H (74-99) mg/dL POC Glucose (mg/dL) 198 H (75-99) mg/dL Total Bilirubin 1.5 H (0.2-1.3) mg/dL Alkaline Phosphatase 286 H (38-126) U/L Albumin 3.3 L (3.5-5.0) g/dL 09/24/17 Range/Units 12:04 RBC (4.30-5.90) m/uL Hgb (13.0-17.5) gm/dL Hct (39.0-53.0) % Carbon Dioxide (22-30) mmol/L Glucose (74-99) mg/dL POC Glucose (mg/dL) 420 H (75-99) mg/dL Total Bilirubin (0.2-1.3) mg/dL Alkaline Phosphatase (38-126) U/L Albumin (3.5-5.0) g/dL Assessment and Plan Assessment: 72-year-old male with past medical history of congestive heart failure with left ventricular ejection fraction of 20% s/p ICD (recent 2 D echo 09/19/2017 showed LVEF of 55-60%). with mild pulmonary hypertension . patient presented to the hospital with abdominal pain found to have acute pancreatitis, he was also suspected to have appendicitis however that was ruled out by general surgery team , and surgery team thought it's an incidental finding of fecalith in the appendix without any active acute appendicitis, patient to continue to follow up with general surgery after discharge, patient received short course of Zosyn during this hospital stay. GI is assisting in management of his pancreatitis however patient cannot give MRCP due to having a pacemaker. Lipase has been trending down initially . Patient denies any more abdominal pain nausea or vomiting. patient tolerated PO intake, clinically his acute pancreatitis attack has resolved, however, his lipase today is trending up again. Patient also developed acute kidney injury and oliguria, which resulted in fluid overload and acute CHF exacerbation, MARGARITA due to 3rd spacing with decreased intravascular volume initially due to acute pancreatitis resulting in prerenal hypoperfusion . enriquez catheter inserted, which he self removed with balloon inflated, resulting in gross hematuria later. However, nephrology suggested aggressive diuresis before considering hemodialysis , and patient started making some urine. his breathing started to improve with aggressive diuresis, holidng IV fluids, and utilizing Bipap. Enriquez catheter maintained for accurate ins and outs. patient is currently being managed at [facility] unit , however, he is stable enough to be moved back to [facility] with tele. Patient responded to aggressive diuresis , and is not oliguric anymore. renal function continues to improve. Cardiology input was requested regarding his SOB at rest due to fluid overload and poor cardiac function, cardiology agreed with current management and will continue to follow up their recommendations On 09/21, all his labs are improving, patient condition is stable now, he will be transferred back to [facility] with telemetry, patient continued to be monitored in the hospital awaiting placement at subacute rehab due to poor cardiac function and limited functional capacity on 09/22 patient continues to improve , tolerating diet, plan for today to remove enriquez catheter and monitor for urinary retention, assess home oxygen need , advance his diet , some adjustment in his cardiac meds to achieve better blood pressure control 09/23 patient was supposed to be discharged however did not end up leaving as his alf did not receive his BiPAP which was supposed to be delivered prior to receiving the patient. Blood pressure now is better controlled, I resumed patient's home medications which were on hold due to acute kidney injury patient continued losartan and the spironolactone. His diuretic was switched to oral. Further adjustments are made to patient insulin regimen 09/24 patient ended up staying in the hospital today, due to spiking a fever, he denies any symptoms of coughing, dysuria, chest pain, productive cough, hematuria, diarrhea, or abd pain . source of infection remains to be ruled out, blood culture was sent, patient does not have any IV lines. blood sugar is elevated today, after getting permission to look into patient drawers and bassinet, he seemed to have bags of chips , and multiple bottles of ensures with high sugar content. patient was counseled to strictly eat what the cafeteria offers him , as he is on restricted carbohydrate diet. patient was also counseled to restrict his fluid intake to 1.5 L daily . will also check post void residual to rule out any urinary retention (which was ruled out earlier, but in light of new fevers, and patient denying urinary symptoms , this will give me a clue toward wether i need to test his urine or not in case he has urinary retention ). Plan: #Diabetes mellitus with peripheral neuropathy adjustment made to insulin regimen patient blood sugars has been trending up , as his appetite is improving and he is eating more however, bags of chips and multiple high sugar ensures were found in patient possession , he was counseled to avoid those, and to strictly follow our hospitals diabetic diet long and short acting insulin on board #. Spikes of fever, rule out infection denies any coughing, chest pain , or productive cough. shortness of breath at baseline per patient report No leukocytosis denies any urinary symptoms or abd pain patient has no IV lines, no evidence of phlebitis, possible atelactesis causing fevers blood cultures ordered check post void residual , if suggests urinary retention then I would test the urine for UTI #. Malignant hypertension with pulmonary edema blood pressure is better controlled now after further adjusting his blood pressure regimen, no changes made today coreg 25 mg hydralazin to 100 mg TID imdur to 60 mg daily losartan and spironolactone blood pressure better controlled now , no adjustments made today #. Debility and deconditioning plans for placement at rehab #. Suspected sleep apnea recommended that the patient get evaluated for sleep apnea and to consider OP sleep study he is at risk of both (obstructive and central sleep apnea) # Pulmonary edema due to acute diastolic CHF exacerbation (LVEF of 20% s/p ICD however, , 2D echocardiogram 09/19/2017 showed LVEF of 55-60% ) due to fluid overload #. Acute / ? chronic hypoxic respiratory failure , continues to require supplemental oxygen continues to have fluid over load despite aggressive diuretics continue with supplemental oxygen Bipap PRN at night nephrology is following and assisting with diuresis #. mild pulmonary hypertension #. Acute kidney injury , non-oliguric, resolved #. Metabolic acidosis secondary to acute renal failure, resolved #Gross hematuria secondary to traumatic removal of the Enriquez catheter by the patient, resolved Urology input noted Hemoglobin stable enriquez cath successfully discontinued #Acute pancreatitis, resolved Lipase continues to trend down patient currently asymptomatic Patient could not get MRCP done due to having pacemaker #Hyperbilirubinemia, mostly of the conjugated type, liver enzymes are unremarkable except for elevated alkaline phosphatase, improving now This is an obstructive jaundice picture, due to edema from acute pancreatitis However patient is afebrile, no leukocytosis GI and general surgery are following DVT prophylaxis, heparin sc TID History of chronic hepatitis C Thrombocytopenia most likely secondary to underlying hepatitis C, now improving No evidence of active bleeding at this time resume aggressive diuresis patient educated again , regarding fluid restriction and diabetic diet continue with current Blood pressure meds insulin regimen adjusted again today monitor for another 24 hours , r/o infectious process spikes of fever without leukocytosis and no clear source of infection follow up blood cultures Patient does not have IV access, due to difficulties to get IV access now, can not utilize IV diuresis at this time, continue attempts to get IV access
--- NOTE | 2017-09-24 15:05 | P.PN ---
Subjective Progress Note Date: 09/24/17 72-year-old male being seen at the request of the attending for surgical follow- up progress note patient was scheduled to go to the [facility] facility for rehab. The discharge has been held due to the patient developing a temp of 101.4 this morning the temp was rechecked at 10:00 this morning it was 100. Patient is adamant that he does not have any abdominal pain. With deep palpitation to the abdominal wall no facial grimacing noted. Patient reports no nausea vomiting. Patient reportedly is tolerating a diet the white count this morning is 7.7 it was 8.7 the day before electrolyte reviewed all within normal limits a lactic acid is not elevated it's 1. Blood sugars are noted to be elevated this morning 248,198 420 patient is resting in bed and is oriented to self and place Objective - Vital Signs Vital signs: Vital Signs Temp 100.0 F H 09/24/17 09:58 Pulse 72 09/24/17 06:27 Resp 28 H 09/24/17 06:27 BP 162/73 09/24/17 06:27 Pulse Ox 92 L 09/24/17 06:27 Intake & Output 09/23/17 09/24/17 09/24/17 18:59 06:59 18:59 Intake Total 720 Balance 720 Weight 99 kg Intake: Oral 720 Other: Voiding Method Toilet # Voids 2 5 # Bowel Movements 0 - Exam Physical exam: 72-year-old male resting in bed cooperative oriented to self and place is adamant that he is not experiencing any abdominal pain becomes easily agitated when trying to asked patient about any discomfort Lungs adequate air movement bilaterally on room air sats are 94% no cough noted no shortness of breath with conversation Heart S1-S2 audible and regular Abdomen firm no facial grimacing with palpitation to the abdominal wall no guarding denies any tenderness bowel tones active no nausea no stool reportedly tolerating a diet continues to be denying any abdominal pain Extremity no edema noted tenderness to the bilateral lower extreme - Labs CBC & Chem 7: 09/25/17 07:50 09/25/17 07:50 Labs: Abnormal Lab Results - Last 24 Hours (Table) 09/23/17 09/23/17 09/24/17 Range/Units 17:25 20:36 01:33 RBC (4.30-5.90) m/uL Hgb (13.0-17.5) gm/dL Hct (39.0-53.0) % Carbon Dioxide (22-30) mmol/L Glucose (74-99) mg/dL POC Glucose (mg/dL) 355 H 425 H 248 H (75-99) mg/dL Total Bilirubin (0.2-1.3) mg/dL Alkaline Phosphatase (38-126) U/L Albumin (3.5-5.0) g/dL 09/24/17 09/24/17 09/24/17 Range/Units 06:45 09:05 09:05 RBC 3.96 L (4.30-5.90) m/uL Hgb 11.6 L (13.0-17.5) gm/dL Hct 37.4 L (39.0-53.0) % Carbon Dioxide 31 H (22-30) mmol/L Glucose 249 H (74-99) mg/dL POC Glucose (mg/dL) 198 H (75-99) mg/dL Total Bilirubin 1.5 H (0.2-1.3) mg/dL Alkaline Phosphatase 286 H (38-126) U/L Albumin 3.3 L (3.5-5.0) g/dL 09/24/17 Range/Units 12:04 RBC (4.30-5.90) m/uL Hgb (13.0-17.5) gm/dL Hct (39.0-53.0) % Carbon Dioxide (22-30) mmol/L Glucose (74-99) mg/dL POC Glucose (mg/dL) 420 H (75-99) mg/dL Total Bilirubin (0.2-1.3) mg/dL Alkaline Phosphatase (38-126) U/L Albumin (3.5-5.0) g/dL Assessment and Plan Assessment: Impression Present on admission abdominal pain CAT scan abdomen pelvis reported appendicolith possible acute early appendicitis not ruled out no fever no white count Hyperkalemia Obesity BMI 36 Type 2 diabetes with episodes of hyperglycemia Prior history of alcohol intake Depressive disorder nonspecified Present on admission elevated lipase and amylase consistent with acute pancreatitis Acute kidney injury Hyperkalemia CAT scan abdomen and pelvis incidental finding appendicoth with no evidence of an acute surgical abdomen no fever no white count Acute exacerbation of systolic heart failure EF 20% status post ICD likely due to fluid overload Gross hematuria likely related to self removal of his indwelling Elise catheter with the balloon inflated Echocardiogram moderate concentric left ventricular hypertrophy with an EF between 55 and 60% Ultrasound of the abdomen and gallbladder no mention of gallstones Plan No evidence of an acute surgical abdomen at this time Patient is felt to be at a moderate to high risk for any surgical intervention given patient's comorbidities given patient's systolic heart failure exacerbation with worsening of the renal status with fluid overload Repeat labs in the morning IV fluid for hydration Will follow with you DVT and GI prophylaxis GI service indicates clinically ERCP is not indicated at this time total bilirubin improving Defer to the attending to address medical issues Progress note dictated for The above impression and plan of care have been discussed and directed by signing physician. Deepa Richardson nurse practitioner acting as scribe for signing physician.
[2017-09-24 16:58] LABS: Glucose,Whole Blood 372 mg/dL (75-99)
[2017-09-24] MEDS ORDERED: INSULIN DETEMIR 100 UNIT/ML 10 ML VIAL SQ SCH (21:00)
--- NOTE | 2017-09-24 21:38 | PN ---
PROGRESS NOTE The patient is seen for followup for acute kidney injury and volume overload. His renal function has improved significantly. He received another dose of IV Lasix yesterday. Patient's volume status is improved as well. Currently, he is maintained on 40 mg p.o. b.i.d., which I will increase to 60 mg b.i.d. The patient may continue with his angiotensin receptor blockers. He will need close monitoring of his labs and volume status as outpatient. EXAMINATION: Blood pressure is 149/73, heart rate of 68 per minute. Patient did have a temp of 100.2. He had a temp this morning of 101.4 degrees Fahrenheit. Examination of the heart S1, S2. Examination of the lungs bilateral breath sounds are heard. Abdomen is soft, nontender. Examination of lower extremities shows edema trace bilaterally. PEWTER CASTER exam is grossly intact. LABS: Reveals serum creatinine 1.1, sodium 141, potassium 4.6, hemoglobin 11.6 g/dL. ASSESSMENT: 1. Acute kidney injury, acute tubular necrosis, currently significantly improved. 2. Acute pancreatitis with the improvement in lipase level with last level drawn on 09/21/2017, being followed by Gastroenterology. No evidence of biliary obstruction noted on CT scan. 3. Volume overload, currently improved, increased oral Lasix to 60 mg b.i.d. 4. Hyperkalemia associated with acute kidney injury now resolved. 5. Cardiomyopathy, ejection fraction 20%, status post AICD. 6. New fever with no significant increase in white count. Monitor for now. PLAN: Continue off of IV fluids. Increase Lasix to 60 mg b.i.d. and monitor labs and volume status closely as outpatient. Repeat UA was not showing evidence of a urinary tract infection. Abdomen is quite soft. I doubt any further complications in his abdomen from the pancreatitis. Continue to monitor for now. Draw blood cultures if he spikes a fever again. MMODL / IJN: [id number] /
[2017-09-24 22:18] LABS: Glucose,Whole Blood 342 mg/dL (75-99)
[2017-09-25 07:36] LABS: Glucose,Whole Blood 224 mg/dL (75-99)
[2017-09-25] MEDS: HEPARIN SODIUM,PORCINE 5,000 UNIT/ML 1 ML VIAL SQ SCH ×3 (07:51→23:37)
[2017-09-25] MEDS: INSULIN ASPART 100 UNIT/ML 1 ML 10 ML VIAL SQ SCH ×7 (07:51→21:27)
[2017-09-25] MEDS: FUROSEMIDE 40 MG TAB PO SCH ×2 (07:53→15:56)
[2017-09-25] MEDS: hydrALAZINE HCL 50 MG TAB PO SCH ×3 (07:53→21:23)
[2017-09-25] MEDS: CARVEDILOL 12.5 MG TAB PO SCH ×2 (07:53→17:44)
[2017-09-25] MEDS: SPIRONOLACTONE 25 MG TAB PO SCH (07:53)
[2017-09-25] MEDS: ISOSORBIDE MONONITRATE ER 60 MG TAB.ER.24H PO SCH (07:53)
[2017-09-25] MEDS: PANTOPRAZOLE 40 MG TABLET PO SCH (07:53)
[2017-09-25] MEDS: LOSARTAN 25 MG TAB PO SCH (07:54)
[2017-09-25] MEDS: INSULIN DETEMIR 100 UNIT/ML 10 ML VIAL SQ SCH ×2 (08:15→21:23)
[2017-09-25 09:06] LABS: Albumin 3.1 g/dL (3.5-5.0); Calcium 8.8 mg/dL (8.4-10.2); Potassium 4.2 mmol/L (3.5-5.1); Total Bilirubin 1.3 mg/dL (0.2-1.3); Total Protein 6.8 g/dL (6.3-8.2)
[2017-09-25 09:08] LABS: Basophils % (A) 0 %; Eosinophils # (A) 0.2 k/uL (0-0.7); Eosinophils % (A) 3 %; HCT 35.9 % (39.0-53.0); HGB 11.5 gm/dL (13.0-17.5); Lymphocytes # (A) 1.7 k/uL (1.0-4.8); Lymphocytes % (A) 25 %; MCH 29.3 pg (25.0-35.0); MCHC 32.1 g/dL (31.0-37.0); MCV 91.5 fL (80.0-100.0); Mean Platelet Volume 11.2; Monocytes # (A) 0.6 k/uL (0-1.0); Monocytes % (A) 8 %; Neutrophils # (A) 4.2 k/uL (1.3-7.7); Neutrophils % (A) 62 %; Platelet Count 173 k/uL (150-450); RBC 3.92 m/uL (4.30-5.90); RDW 12.9 % (11.5-15.5); WBC 6.8 k/uL (3.8-10.6)
--- NOTE | 2017-09-25 09:32 | P.PN ---
Subjective Progress Note Date: 09/25/17 72-year-old male seen and examined at the bedside current temp this morning 99.3. At midnight 100.1. The white count this morning is 6.8. Patient is adamant that he has not experiencing any abdominal pain there is no nausea no vomiting. States no difficulty in urinating and no frequent stooling with palpitation to the abdominal wall no facial grimacing no guarding patient denies pain with palpitations when questioning Objective - Vital Signs Vital signs: Vital Signs Temp 99.3 F 09/25/17 07:00 Pulse 63 09/25/17 07:00 Resp 18 09/25/17 07:00 BP 176/77 09/25/17 07:00 Pulse Ox 92 L 09/25/17 07:51 Intake & Output 09/24/17 09/25/17 09/25/17 18:59 06:59 18:59 Intake Total 1140 700 Output Total 1800 475 Balance -660 225 Weight 113 kg Intake: Oral 1140 700 Output: Urine 1800 475 Other: Voiding Method Urinal # Voids 3 3 # Bowel Movements 2 0 - Exam Physical exam: 72-year-old male resting in bed cooperative oriented to self and place is adamant that he is not experiencing any abdominal pain becomes easily agitated when trying to asked patient about any discomfort Lungs adequate air movement bilaterally on room air no cough noted no shortness of breath with conversation Heart S1-S2 audible and regular Abdomen firm no facial grimacing with palpitation to the abdominal wall no guarding denies any tenderness bowel tones active no nausea no stool reportedly tolerating a diet continues to be denying any abdominal pain stop asking me why I'm having abdominal pain when I am not having any pain Extremity no edema noted tenderness to the bilateral lower extreme - Labs CBC & Chem 7: 09/25/17 07:50 09/25/17 07:50 Labs: Abnormal Lab Results - Last 24 Hours (Table) 09/24/17 09/24/17 09/24/17 Range/Units 09:05 09:05 12:04 RBC 3.96 L (4.30-5.90) m/uL Hgb 11.6 L (13.0-17.5) gm/dL Hct 37.4 L (39.0-53.0) % Carbon Dioxide 31 H (22-30) mmol/L Glucose 249 H (74-99) mg/dL POC Glucose (mg/dL) 420 H (75-99) mg/dL Total Bilirubin 1.5 H (0.2-1.3) mg/dL Alkaline Phosphatase 286 H (38-126) U/L Albumin 3.3 L (3.5-5.0) g/dL 09/24/17 09/24/17 09/25/17 Range/Units 16:52 21:49 07:14 RBC (4.30-5.90) m/uL Hgb (13.0-17.5) gm/dL Hct (39.0-53.0) % Carbon Dioxide (22-30) mmol/L Glucose (74-99) mg/dL POC Glucose (mg/dL) 372 H 342 H 224 H (75-99) mg/dL Total Bilirubin (0.2-1.3) mg/dL Alkaline Phosphatase (38-126) U/L Albumin (3.5-5.0) g/dL 09/25/17 09/25/17 Range/Units 07:50 07:50 RBC 3.92 L (4.30-5.90) m/uL Hgb 11.5 L (13.0-17.5) gm/dL Hct 35.9 L (39.0-53.0) % Carbon Dioxide 33 H (22-30) mmol/L Glucose 199 H (74-99) mg/dL POC Glucose (mg/dL) (75-99) mg/dL Total Bilirubin (0.2-1.3) mg/dL Alkaline Phosphatase 265 H (38-126) U/L Albumin 3.1 L (3.5-5.0) g/dL Assessment and Plan Assessment: Impression Present on admission abdominal pain CAT scan abdomen pelvis reported appendicolith possible acute early appendicitis not ruled out no fever no white count Hyperkalemia Obesity BMI 36 Type 2 diabetes with episodes of hyperglycemia Prior history of alcohol intake Depressive disorder nonspecified Present on admission elevated lipase and amylase consistent with acute pancreatitis Acute kidney injury Hyperkalemia CAT scan abdomen and pelvis incidental finding appendicoth with no evidence of an acute surgical abdomen no fever no white count Acute exacerbation of systolic heart failure EF 20% status post ICD likely due to fluid overload Gross hematuria likely related to self removal of his indwelling Elise catheter with the balloon inflated Echocardiogram moderate concentric left ventricular hypertrophy with an EF between 55 and 60% Ultrasound of the abdomen and gallbladder no mention of gallstones Plan Will not repeat his CAT scan of the abdomen pelvis at this time Would recommend infectious disease consult Dr. Thapa to workup etiology of fever No evidence of an acute surgical abdomen at this time Patient is felt to be at a moderate to high risk for any surgical intervention given patient's comorbidities given patient's systolic heart failure exacerbation with worsening of the renal status with fluid overload Repeat labs in the morning IV fluid for hydration Will follow with you DVT and GI prophylaxis GI service indicates clinically ERCP is not indicated at this time total bilirubin improving Defer to the attending to address medical issues Progress note dictated for The above impression and plan of care have been discussed and directed by signing physician. Deepa Richardson nurse practitioner acting as scribe for signing physician.
[2017-09-25 09:42] LABS: Large Platelets Present
[2017-09-25 12:35] LABS: Glucose,Whole Blood 256 mg/dL (75-99)
--- NOTE | 2017-09-25 14:01 | P.PN ---
Subjective Progress Note Date: 09/25/17 Principal diagnosis: Abdominal pain. Patient is a poor historian, he told me that he has some abdominal pain today but earlier in the day he told the surgeon that he was not having any pain. He continued to have intermittent documented fevers. Objective - Vital Signs Vital signs: Vital Signs Temp 99.3 F 09/25/17 07:00 Pulse 63 09/25/17 07:00 Resp 18 09/25/17 07:00 BP 176/77 09/25/17 07:00 Pulse Ox 92 L 09/25/17 07:51 Intake & Output 09/24/17 09/25/17 09/25/17 18:59 06:59 18:59 Intake Total 1140 700 Output Total 1800 475 200 Balance -660 225 -200 Weight 113 kg Intake: Oral 1140 700 Output: Urine 1800 475 200 Other: Voiding Method Urinal # Voids 3 3 # Bowel Movements 2 0 - Exam Constitutional: Vital signs showing that his blood pressure is under better control and improving , patient is conversant, not in any acute distress, oxygen via nasal canula Lungs: decrease breath sounds bilaterally, with inspiratory rales at lung bases. Cardiovascular: Regular rate and rhythm, no murmurs, no gallops, no rubs Gastrointestinal: No tenderness palpation of the abdomen, soft, bowel sounds are positive Extremities: No digital cyanosis peripheral pulses palpable and equal over bilateral radial arteries and dorsalis pedis artery, no calf muscle tenderness , capillary refill is immediate over bilateral big toes Psych: Alert, oriented to place, person, appropriate affect - Labs CBC & Chem 7: 09/25/17 07:50 09/25/17 07:50 Labs: Abnormal Lab Results - Last 24 Hours (Table) 09/24/17 09/24/17 09/25/17 Range/Units 16:52 21:49 07:14 RBC (4.30-5.90) m/uL Hgb (13.0-17.5) gm/dL Hct (39.0-53.0) % Carbon Dioxide (22-30) mmol/L Glucose (74-99) mg/dL POC Glucose (mg/dL) 372 H 342 H 224 H (75-99) mg/dL Alkaline Phosphatase (38-126) U/L Albumin (3.5-5.0) g/dL 09/25/17 09/25/1718 Range/Units 07:50 07:50 12:16 RBC 3.92 L (4.30-5.90) m/uL Hgb 11.5 L (13.0-17.5) gm/dL Hct 35.9 L (39.0-53.0) % Carbon Dioxide 33 H (22-30) mmol/L Glucose 199 H (74-99) mg/dL POC Glucose (mg/dL) 256 H (75-99) mg/dL Alkaline Phosphatase 265 H (38-126) U/L Albumin 3.1 L (3.5-5.0) g/dL Microbiology - Last 24 Hours (Table) 09/24/17 09:05 Blood Culture - Preliminary Blood No Growth after 24 hours Assessment and Plan Plan: # Acute pancreatitis/Hyperbilirubinemia Resolved, patient could not have MRCP due to pacemaker in place. # Diabetes mellitus with peripheral neuropathy Blood sugars slightly uncontrolled patient has history of noncompliance with his diabetic diet Counseled to strictly follow diabetic diet Long and short acting insulin on board # Fever of unknown origin Discussed with general surgeon today, we'll need to consult ID for possible WBC scan No leukocytosis, no obvious source of infection # Accelerated hypertension with pulmonary edema Continue coreg 25 mg, hydralazin to 100 mg TID, imdur to 60 mg daily, losartan and spironolactone # Debility and deconditioning plans for placement at rehab # Suspected sleep apnea Recommended that the patient get evaluated for sleep apnea upon discharge with sleep study # Pulmonary edema due to acute diastolic CHF exacerbation (LVEF of 20% s/p ICD however, , 2D echocardiogram 09/19/2017 showed LVEF of 55-60% )/ Acute on chronic hypoxic respiratory failure Continues to require supplemental oxygen Currently on Lasix, we'll continue Bipap PRN at night # Acute kidney injury , non-oliguric, resolved Metabolic acidosis secondary to acute renal failure, resolved # Gross hematuria secondary to traumatic removal of the Elise catheter by the patient, resolved Resolved Urology input noted Hemoglobin stable
--- NOTE | 2017-09-25 16:07 | P.CONS ---
History of Present Illness - Reason for Consult Consult date: 09/25/17 Fever - History of Present Illness This is a 72-year-old -Portuguese male who presented to [facility] emergency center on September 13 by ambulance complaining of abdominal pain and chest pain. Abdominal pain was in the mid abdomen. He did not have any nausea vomiting or diarrhea, no fever or chills. At that time he underwent a CAT scan of the abdomen and pelvis without contrast that showed a distal appendix dilated to 9 mm containing an 8 mm appendicolith surrounded by small amount of stranding. Chest x-ray showed prominent pulmonary vasculature likely due to underinflation rather than pulmonary edema. Gallbladder ultrasound showed limitation due to bowel gas. Right upper quadrant ultrasound appears without acute changes. He had a repeat CAT scan of the abdomen and pelvis without contrast on September 16 that revealed similar findings. Correlate to exclude appendicitis. Abdominal x-rays on September 18 revealed left lower lobe pneumonia, left pleural effusion not excluded, cardiomegaly, unremarkable abdomen. Most recent chest x-ray on September 24 revealed bilateral infiltrate and pleural effusion correlate for heart failure. During this hospitalization, patient has been treated for acute pancreatitis and seen by GI. Patient was unable to undergo MRCP due to pacemaker in place. He did have improvement of his amylase and lipase. Patient was treated for acute on chronic diastolic heart failure and followed by Dr. Rojas and has been on IV Lasix currently on oral. Patient also has history of diabetes with hemoglobin A1c of 10.6 which is being managed by medicine. Patient came back positive for hepatitis C antibody on the patient denies any known history of this in the past or been told during this admission that he had hepatitis C positive testing. Patient was progressing and plan for discharge to [facility] for rehab but he developed a fever 101.4 on September 24. His white count has been normal through his stay. Lactic acid was 1 liver function tests are improved as well as amylase and lipase. Cetaphil toxin was negative. Patient did have a Elise catheter and last week which he pulled out himself and it was reinserted this was removed by nursing on September 22 patient did have a bladder scan and did not show any significant results. He had a blood culture obtained on admission that is showing no growth at 144 hours and urine cultures no growth after 18 hours. A repeat blood culture was obtained on 09/24 and is showing no growth at 24 hours. Patient is a very poor historian. He denies having any fever or chills or rigors. He does not recall having a fever. He denies any abdominal pain nausea or vomiting. He does complain of shortness of breath which he states he has always. He also states he has a cough is nonproductive. He denies any problem urinating no pain or burning when he goes. He states he had a bowel movement half hour before he was seen by me. He denies any skin problems, rashes or wounds. During evaluation, patient had one episode of right lower quadrant pain that lasted for approximately 2 seconds and was sharp in nature. Review of Systems All systems: negative Constitutional: Reports fatigue, Denies chills, Denies fever Eyes: denies blurred vision, denies pain Ears, nose, mouth and throat: Denies dental pain, Denies headache, Denies mouth pain, Denies sore throat Cardiovascular: Reports decreased exercise tolerance, Reports dyspnea on exertion, Reports shortness of breath, Denies chest pain, Denies lightheadedness , Denies syncope Respiratory: Reports cough, Reports dyspnea, Denies cough with sputum, Denies excessive sputum, Denies hemoptysis Gastrointestinal: Denies abdominal pain, Denies diarrhea, Denies nausea, Denies vomiting Musculoskeletal: Denies myalgias Integumentary: Denies pruritus, Denies rash Neurological: Denies numbness, Denies weakness Psychiatric: Denies anxiety, Denies depression Endocrine: Denies fatigue, Denies weight change Past Medical History Past Medical History: Chest Pain / Angina, Heart Failure, COPD, Diabetes Mellitus, Hyperlipidemia, Hypertension, Myocardial Infarction (VT), Osteoarthritis (OA) Additional Past Medical History / Comment(s): 06/07/15 Pt presented to [facility] ER EMS feeling weak and having mild headache and anterior neck pain. Symptoms began days ago. Pt being admitted with clinical impression of weakness, acute renal failure. PT last admitted to [facility] 01/24/15 with acute DKA, acute metabolic encephalitis from DKA, acute renal failure, severe hyperkalemia, pseudohyponatremia. 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 Last Myocardial Infarction Date:: 11/2013 History of Any Multi-Drug Resistant Organisms: None Reported Past Surgical History: Heart Catheterization, Pacemaker Additional Past Surgical History / Comment(s): CATARACTS TRAY EYES REMOVED. liver biopsy on 10-18-13, heart cath 2004 Past Anesthesia/Blood Transfusion Reactions: No Reported Reaction Type of Cardiac Device: Permanent Pacemaker Device Placement Date:: UN Past Psychological History: Bipolar, Depression Smoking Status: Never smoker Past Alcohol Use History: Occasional Past Drug Use History: None Reported - Past Family History Mother Family Medical History: Cancer Sister(s) Family Medical History: Cancer Medications and Allergies Home Medications Medication Instructions Recorded Confirmed Type Nitroglycerin Sl Tabs [Nitrostat] 0.4 mg SUBLINGUAL Q5M PRN 11/28/13 09/13/17 History Carvedilol 25 mg PO AC-BID 01/24/15 09/13/17 History Docusate [Colace] 100 - 200 mg PO DAILY 06/07/15 09/13/17 History INSULIN LISPRO (humaLOG) [humaLOG] 8 - 21 units SQ AC-TID 09/13/17 09/13/17 History Losartan [Cozaar] 12.5 mg PO DAILY 09/13/17 09/13/17 History Spironolactone [Aldactone] 25 mg PO DAILY 09/13/17 09/13/17 History Furosemide [Lasix] 40 mg PO BID@0900,1600 tab 09/23/17 Rx Insulin Detemir [Levemir] 12 unit SQ HS syr 09/23/17 Rx Isosorbide Mononitrate ER [Imdur] 60 mg PO DAILY tab.er.24h 09/23/17 Rx Pantoprazole [Protonix] 40 mg PO AC-BRKFST tablet. 09/23/17 Rx hydrALAZINE HCL [Apresoline] 100 mg PO TID tab 09/23/17 Rx Allergies Allergy/AdvReac Type Severity Reaction Status Date / Time No Known Allergies Allergy Verified 09/13/17 11:35 Physical Exam Vitals: Vital Signs Temp Pulse Resp BP BP Pulse Ox 09/25/17 07:51 92 L 09/25/17 07:00 99.3 F 63 18 176/77 100 09/25/17 00:00 20 09/24/17 23:00 100.1 F H 75 20 153/71 96 09/24/17 20:13 69 20 167/77 95 09/24/17 19:17 97 09/24/17 17:11 98.8 F 68 19 146/74 92 L 09/24/17 16:19 68 19 09/24/17 15:00 100.2 F H 69 18 149/73 92 L Intake and Output 09/24/17 09/25/17 09/25/17 22:59 06:59 14:59 Intake Total 780 100 Output Total 2275 200 Balance -1495 100 -200 Intake: Oral 780 100 Output: Urine 2275 200 Other: Voiding Method Urinal # Voids 1 3 # Bowel Movements 0 0 Weight 113 kg Gen: This is a 72-year-old morbidly obese F can Portuguese male. He is sitting up in bed and appears to be dyspneic with tachypnea and mild accessory muscle usage. HEENT: Head is atraumatic, normocephalic. Pupils equal, round. Sclerae is anicteric. Mucous membranes of the mouth are slightly dry. No thrush noted. NECK: Supple. No JVD. No lymphadenopathy. No thyromegaly. LUNGS: Diminished at the bases with rales. Tachypneic. Mild intercostal retractions. HEART: Regular rate and rhythm. No murmur. ABDOMEN: Soft. Bowel sounds are present. No masses. No tenderness. Patient denies any tenderness to the right lower quadrant. No CVA tenderness bilaterally. EXTREMITIES: 1+ bilateral pedal edema, slightly worse on the left. No calf tenderness. Onychomycosis to the toes bilaterally. NEUROLOGICAL: Patient is awake, alert and oriented x3. Generalized weakness noted. Results Results: Laboratory Results WBC 6.8 k/uL (3.8-10.6) 09/25/17 07:50 RBC 3.92 m/uL (4.30-5.90) L 09/25/17 07:50 Hgb 11.5 gm/dL (13.0-17.5) L 09/25/17 07:50 Hct 35.9 % (39.0-53.0) L 09/25/17 07:50 MCV 91.5 fL (80.0-100.0) 09/25/17 07:50 MCH 29.3 pg (25.0-35.0) 09/25/17 07:50 MCHC 32.1 g/dL (31.0-37.0) 09/25/17 07:50 RDW 12.9 % (11.5-15.5) 09/25/17 07:50 Plt Count 173 k/uL (150-450) 09/25/17 07:50 Neutrophils % 62 % 09/25/17 07:50 Lymphocytes % 25 % 09/25/17 07:50 Monocytes % 8 % 09/25/17 07:50 Eosinophils % 3 % 09/25/17 07:50 Basophils % 0 % 09/25/17 07:50 Neutrophils # 4.2 k/uL (1.3-7.7) 09/25/17 07:50 Lymphocytes # 1.7 k/uL (1.0-4.8) 09/25/17 07:50 Monocytes # 0.6 k/uL (0-1.0) 09/25/17 07:50 Eosinophils # 0.2 k/uL (0-0.7) 09/25/17 07:50 Basophils # 0.0 k/uL (0-0.2) 09/25/17 07:50 Manual Slide Review Performed 09/25/17 07:50 Toxic Granulation Present 09/21/17 05:37 Large Platelets Present 09/25/17 07:50 RBC Morphology Normal 09/25/17 07:50 Polychromasia Present 09/21/17 05:37 Hypochromasia Slight 09/18/17 04:06 Poikilocytosis (manual Present 09/17/17 08:33 PT 10.1 sec (9.0-12.0) 09/18/17 04:06 INR 1.0 (<1.2) 09/18/17 04:06 Sample Site rrad 09/18/17 07:47 ABG pH 7.29 (7.35-7.45) L 09/18/17 07:47 ABG pCO2 46 mmHg (35-45) H 09/18/17 07:47 ABG pO2 75 mmHg (83-108) L 09/18/17 07:47 ABG HCO3 22 mmol/L (21-25) 09/18/17 07:47 ABG Total CO2 23 mmol/L (19-24) 09/18/17 07:47 ABG O2 Saturation 95.6 % (94-97) 09/18/17 07:47 ABG Base Excess -5.0 mmol/L 09/18/17 07:47 Omar Test Yes 09/18/17 07:47 FiO2 32 % 09/18/17 07:47 Sodium 139 mmol/L (137-145) 09/25/17 07:50 Potassium 4.2 mmol/L (3.5-5.1) 09/25/17 07:50 Chloride 99 mmol/L (98-107) 09/25/17 07:50 Carbon Dioxide 33 mmol/L (22-30) H 09/25/17 07:50 Anion Gap 7 mmol/L 09/25/17 07:50 BUN 17 mg/dL (9-20) 09/25/17 07:50 Creatinine 1.08 mg/dL (0.66-1.25) 09/25/17 07:50 Est GFR (MDRD) Af Amer 37 (>60 ml/min/1.73 sqM) 09/16/17 07:05 Est GFR (MDRD) Non-Af 31 (>60 ml/min/1.73 sqM) 09/16/17 07:05 Est GFR (CKD-EPI)AfAm 79 (>60 ml/min/1.73 sqM) 09/25/17 07:50 Est GFR (CKD-EPI)NonAf 68 (>60 ml/min/1.73 sqM) 09/25/17 07:50 Glucose 199 mg/dL (74-99) H 09/25/17 07:50 POC Glucose (mg/dL) 256 mg/dL (75-99) H 09/25/17 12:16 POC Glu [employer] ID Sneha Walters 09/25/17 12:[address] Glu mg/dL 258 09/13/17 06:23 Hemoglobin A1c 10.6 % (4.0-6.0) H 09/13/17 06:23 Plasma Lactic Acid Fermin 1.0 mmol/L (0.7-2.0) 09/24/17 09:05 Calcium 8.8 mg/dL (8.4-10.2) 09/25/17 07:50 Phosphorus 3.8 mg/dL (2.5-4.5) 09/18/17 04:06 Magnesium 2.2 mg/dL (1.6-2.3) 09/18/17 04:06 Total Bilirubin 1.3 mg/dL (0.2-1.3) 09/25/17 07:50 Conjugated Bilirubin 2.7 mg/dL (0.0-0.3) H 09/17/17 08:28 Unconjugated Bilirubin 0.4 mg/dL (0.0-1.1) 09/17/17 08:28 Delta Bilirubin 2.0 mg/dL (0.0-0.2) H 09/17/17 08:28 AST 28 U/L (17-59) 09/25/17 07:50 ALT 28 U/L (21-72) 09/25/17 07:50 Alkaline Phosphatase 265 U/L (38-126) H 09/25/17 07:50 Ammonia 61 umol/L (<30) H 09/20/17 05:49 Total Creatine Kinase 121 U/L (55-170) 09/13/17 06:23 CK-MB (CK-2) 2.9 ng/mL (0.0-2.4) H* 09/13/17 06:23 CK-MB (CK-2) Rel Index 2.4 09/13/17 06:23 Troponin I 0.024 ng/mL (0.000-0.034) 09/13/17 06:23 Total Protein 6.8 g/dL (6.3-8.2) 09/25/17 07:50 Albumin 3.1 g/dL (3.5-5.0) L 09/25/17 07:50 Triglycerides 146 mg/dL (<150) 09/14/17 07:17 Cholesterol 129 mg/dL (<200) 09/14/17 07:17 LDL Cholesterol, Calc 30 mg/dL (0-99) 09/14/17 07:17 HDL Cholesterol 70 mg/dL (40-60) H 09/14/17 07:17 Amylase 190 U/L (30-110) H 09/21/17 05:37 Lipase 1703 U/L (23-300) H 09/21/17 05:37 Tumor Marker AFP 3.2 ng/mL (0.0-7.9) 09/19/17 07:09 CA 19-9 Antigen 50.6 U/mL (0.0-34.9) H 09/17/17 07:41 Urine Color Yellow 09/18/17 13:45 Urine Appearance Clear (Clear) 09/18/17 13:45 Urine pH 5.0 (5.0-8.0) 09/18/17 13:45 Ur Specific [place] 1.007 (1.001-1.035) 09/18/17 13:45 Urine Protein Negative (Negative) 09/18/17 13:45 Urine Glucose (UA) Negative (Negative) 09/18/17 13:45 Urine Ketones Negative (Negative) 09/18/17 13:45 Urine Blood Moderate (Negative) H 09/18/17 13:45 Urine Nitrite Negative (Negative) 09/18/17 13:45 Urine Bilirubin Negative (Negative) 09/18/17 13:45 Urine Urobilinogen <2.0 mg/dL (<2.0) 09/18/17 13:45 Ur Leukocyte Esterase Negative (Negative) 09/18/17 13:45 Urine RBC 19 /hpf (0-5) H 09/18/17 13:45 Urine WBC 1 /hpf (0-5) 09/18/17 13:45 Ur Squamous Epith Cells <1 /hpf (0-4) 09/16/17 01:40 Amorphous Sediment Rare /hpf (None) H 09/13/17 17:17 Urine Bacteria Rare /hpf (None) H 09/18/17 13:45 Hyaline Casts 3 /lpf (0-2) H 09/18/17 13:45 Urine Mucus Rare /hpf (None) H 09/18/17 13:45 Urine Eosinophils 0 % 09/18/17 13:45 Serum Alcohol <10 mg/dL 09/13/17 16:45 C. difficile (EIA) Intrp Negative (Negative) 09/22/17 12:00 Hepatitis A IgM Ab Non-Reactive (Non-Reactive) 09/16/17 10:20 Hep Bs Antigen Non-Reactive (Non-Reactive) 09/16/17 10:20 Hep B Core IgM Ab Non-Reactive (Non-Reactive) 09/16/17 10:20 Hep C IgG Ab Reactive (Non-Reactive) H 09/16/17 10:20 HCV RNA Qual (PCR) DETECTED (Not detected) H 09/17/17 07:41 Hepatitis C RNA Quant 415,721 IU/mL (<12) H 09/17/17 07:41 HCV RNA PCR log copy director/ml 5.62 (<1.08) H 09/17/17 07:41 Hepatitis C Genotype 1a H 09/17/17 07:41 CBC & Chem 7: 09/25/17 07:50 09/25/17 07:50 Labs: Abnormal Lab Results - Last 24 Hours (Table) 09/24/17 09/24/17 09/24/17 Range/Units 12:04 16:52 21:49 RBC (4.30-5.90) m/uL Hgb (13.0-17.5) gm/dL Hct (39.0-53.0) % Carbon Dioxide (22-30) mmol/L Glucose (74-99) mg/dL POC Glucose (mg/dL) 420 H 372 H 342 H (75-99) mg/dL Alkaline Phosphatase (38-126) U/L Albumin (3.5-5.0) g/dL 09/25/17 09/25/17 09/25/17 Range/Units 07:14 07:50 07:50 RBC 3.92 L (4.30-5.90) m/uL Hgb 11.5 L (13.0-17.5) gm/dL Hct 35.9 L (39.0-53.0) % Carbon Dioxide 33 H (22-30) mmol/L Glucose 199 H (74-99) mg/dL POC Glucose (mg/dL) 224 H (75-99) mg/dL Alkaline Phosphatase 265 H (38-126) U/L Albumin 3.1 L (3.5-5.0) g/dL Assessment and Plan Plan: This is a 72-year-old male who came in the hospital with abdominal pain and treated for acute pancreatitis. Patient developed a fever of 101.4 on September 24 possibly related to atelectasis. Patient does not have a leukocytosis. Blood cultures are showing no growth as well as the urine culture. C. difficile toxin has been negative. Continue supportive care. Further recommendations as patient progresses. The above dictated assessment and findings were discussed with Dr. Thapa. The impression and plan of care have been directed as dictated. Tiny Ahn nurse practitioner acting as scribe for Dr. Thapa.
[2017-09-25 17:03] LABS: Glucose,Whole Blood 323 mg/dL (75-99)
[2017-09-25 21:04] LABS: Glucose,Whole Blood 267 mg/dL (75-99)
--- NOTE | 2017-09-25 23:31 | P.CON ---
Consult Note - . Consult date: 09/25/17 Assessment/Plan:: This is a 72-year-old -[place] male who presented to [facility] emergency center on September 13 by ambulance complaining of abdominal pain and chest pain. Abdominal pain was in the mid abdomen. He did not have any nausea vomiting or diarrhea, no fever or chills. At that time he underwent a CAT scan of the abdomen and pelvis without contrast that showed a distal appendix dilated to 9 mm containing an 8 mm appendicolith surrounded by small amount of stranding. Chest x-ray showed prominent pulmonary vasculature likely due to underinflation rather than pulmonary edema. Gallbladder ultrasound showed limitation due to bowel gas. Right upper quadrant ultrasound appears without acute changes. He had a repeat CAT scan of the abdomen and pelvis without contrast on September 16 that revealed similar findings. Correlate to exclude appendicitis. Abdominal x-rays on September 18 revealed left lower lobe pneumonia, left pleural effusion not excluded, cardiomegaly, unremarkable abdomen. Most recent chest x-ray on September 24 revealed bilateral infiltrate and pleural effusion correlate for heart failure. During this hospitalization, patient has been treated for acute pancreatitis and seen by GI. Patient was unable to undergo MRCP due to pacemaker in place. He did have improvement of his amylase and lipase. Patient was treated for acute on chronic diastolic heart failure and followed by Dr. Rojas and has been on IV Lasix currently on oral. Patient also has history of diabetes with hemoglobin A1c of 10.6 which is being managed by medicine. Patient came back positive for hepatitis C antibody on the patient denies any known history of this in the past or been told during this admission that he had hepatitis C positive testing. Patient was progressing and plan for discharge to [facility] for rehab but he developed a fever 101.4 on September 24. His white count has been normal through his stay. Lactic acid was 1 liver function tests are improved as well as amylase and lipase. Cetaphil toxin was negative. Patient did have a Elise catheter and last week which he pulled out himself and it was reinserted this was removed by nursing on September 22 patient did have a bladder scan and did not show any significant results. He had a blood culture obtained on admission that is showing no growth at 144 hours and urine cultures no growth after 18 hours. A repeat blood culture was obtained on 09/24 and is showing no growth at 24 hours. Patient is a very poor historian. He denies having any fever or chills or rigors. He does not recall having a fever. He denies any abdominal pain nausea or vomiting. He does complain of shortness of breath which he states he has always. He also states he has a cough is nonproductive. He denies any problem urinating no pain or burning when he goes. He states he had a bowel movement half hour before he was seen by me. He denies any skin problems, rashes or wounds. During evaluation, patient had one episode of right lower quadrant pain that lasted for approximately 2 seconds and was sharp in nature. Please see the consult note is dictated by nurse practitioner Mrs. Tiny Ahn. 72-year-old male who's had a somewhat protracted hospital stay admitted with pancreatitis was having some improvement and then developed a fever. With this the infectious diseases consultation was requested. As noted the patient is a difficult historian in that he does not like to be bothered. However on the exam is completely benign without evidence of any abdominal tenderness. It is soft nontender no rigidity. It is likely the patient's fevers and the basis of atelectasis in a sinus parameter has been requested. Hopefully patient will cooperate with this. Having him sit upright especially when eating meals is helpful. The case discussed with surgery. Improved likely will be discharged home tomorrow. Follow in the outpatient setting if he has any acute changes with his appendix with an have an emergent appendectomy unlikely would be a candidate for elective procedure given his multiple underlying medical issues. No need for antibiotic therapy at this time. His bit of volume overload is being managed with some increased diuresis will be further improved and ready for discharge to home soon. I agree with evaluation, assessment and plan as dictated by nurse practitioner Mrs. Tiny Ahn.
[2017-09-26 07:05] VITALS: PULSE 75; TEMP 98.4
[2017-09-26 07:06] VITALS: BP 139/76
[2017-09-26 07:24] LABS: Glucose,Whole Blood 237 mg/dL (75-99)
[2017-09-26] MEDS: ISOSORBIDE MONONITRATE ER 60 MG TAB.ER.24H PO SCH (08:02)
[2017-09-26] MEDS: CARVEDILOL 12.5 MG TAB PO SCH (08:02)
[2017-09-26] MEDS: hydrALAZINE HCL 50 MG TAB PO SCH (08:02)
[2017-09-26] MEDS: HEPARIN SODIUM,PORCINE 5,000 UNIT/ML 1 ML VIAL SQ SCH (08:03)
[2017-09-26] MEDS: PANTOPRAZOLE 40 MG TABLET PO SCH (08:03)
[2017-09-26] MEDS: FUROSEMIDE 40 MG TAB PO SCH (08:03)
[2017-09-26] MEDS: INSULIN ASPART 100 UNIT/ML 1 ML 10 ML VIAL SQ SCH ×2 (08:03→08:04)
[2017-09-26] MEDS: SPIRONOLACTONE 25 MG TAB PO SCH (08:03)
[2017-09-26] MEDS: LOSARTAN 25 MG TAB PO SCH (08:03)
[2017-09-26] MEDS: INSULIN DETEMIR 100 UNIT/ML 10 ML VIAL SQ SCH (08:04)
[2017-09-26 08:22] LABS: Basophils % (A) 0 %; Eosinophils # (A) 0.2 k/uL (0-0.7); Eosinophils % (A) 3 %; HCT 36.2 % (39.0-53.0); HGB 11.5 gm/dL (13.0-17.5); Lymphocytes # (A) 1.5 k/uL (1.0-4.8); Lymphocytes % (A) 23 %; MCH 29.5 pg (25.0-35.0); MCHC 31.8 g/dL (31.0-37.0); MCV 92.8 fL (80.0-100.0); Mean Platelet Volume 11.3; Monocytes # (A) 0.5 k/uL (0-1.0); Monocytes % (A) 7 %; Neutrophils # (A) 4.1 k/uL (1.3-7.7); Neutrophils % (A) 64 %; Platelet Count 169 k/uL (150-450); WBC 6.5 k/uL (3.8-10.6)
[2017-09-26 08:38] LABS: Albumin 3.1 g/dL (3.5-5.0); Calcium 8.7 mg/dL (8.4-10.2); Magnesium 1.5 mg/dL (1.6-2.3); Potassium 4.5 mmol/L (3.5-5.1); Total Bilirubin 1.2 mg/dL (0.2-1.3); Total Protein 6.9 g/dL (6.3-8.2)
--- NOTE | 2017-09-26 09:36 | P.DS ---
Providers Date of admission: 09/13/17 09:33 Expected date of discharge: 09/26/17 Attending physician: Jonathan Sams MD Consults: 09/13/17 10:31 Consult Physician Urgent Consulting Provider: Dina Chang Consult Reason/Comments: appy,pancreatitis Do you want consulting provider notified?: Yes 09/15/17 12:37 Consult Physician Routine Consulting Provider: Jacob Ruiz Consult Reason/Comments: MARGARITA / metabolic acidosis Do you want consulting provider notified?: Yes 09/19/17 09:04 Consult Physician Routine Consulting Provider: Dario Sargent Consult Reason/Comments: hematuria , enriquez pulled out with inflated balloon Do you want consulting provider notified?: Yes 09/19/17 09:20 Consult Physician Routine Consulting Provider: Osvaldo Castañeda Consult Reason/Comments: SOB at rest, systolic CHF with LVEF 20% Do you want consulting provider notified?: Yes 09/24/17 10:23 Consult Physician Routine Consulting Provider: Dina Chang Consult Reason/Comments: appendix fecalith Do you want consulting provider notified?: Already Contacted 09/25/17 09:09 Consult Physician Urgent Consulting Provider: Joel Thapa Consult Reason/Comments: Persistent febrile unclear source Do you want consulting provider notified?: Yes Primary care physician: [facility] Course: 72-year-old male with past medical history of congestive heart failure with left ventricular ejection fraction of 20% presented to the hospital with abdominal pain, was found to have acute pancreatitis, he was also suspected to have appendicitis based on CT abd view of an appendicolith however that was ruled out by general surgery team, and surgery team thought it was an incidental finding. Patient received short course of Zosyn during this hospital stay. Patient has an appointment to follow up with general surgery after discharge. Regarding the acute pancreatitis, no obvious cause was found, GI did not recommend ERCP because his lipase and bilirubin were all improving with conservative management. MRCP could not be done due to having a pacemaker. Symptoms of abdominal pain, nausea and vomiting have resolved. Patient also developed acute kidney injury and oliguria, which resulted in fluid overload and acute CHF exacerbation, MARGARITA was thought to be due to 3rd spacing/CHF diastolic type. Enriquez catheter was inserted, which he self removed with balloon inflated, resulting in gross hematuria later. However, nephrology suggested aggressive diuresis with lasix IV, and patient started making some urine. Then his breathing started to improve, he did briefly require Bipap. Cardiology input was requested regarding his SOB at rest due to fluid overload and poor cardiac function, cardiology agreed with management. He was going to be discharged on 09/23 but he spiked a fever so the discharge was held and he was monitored. He continues to deny any more diarrhea , denies abd pain, nausea or vomiting, denies any chest pain, denies trouble breathing at rest. Denies urinary retention. ID was consulted, they thought process was that the fever was coming from some lung atelectasis, ID did not recommend treating him with any antibiotics and did not recommend any further workup. I repeated his lipase this morning and it was still elevated at 1000 but this values lower than previous values. I discussed that with Dr. Crystal from GI who did not recommend any further workup or management. Patient stable for discharge , he will be transferred to rehab. Case was discussed with care management, social work as well as nursing. Due to the prolonged hospitalization patient was weak, he was evaluated by physical and occupational therapy who advised rehab, referrals were made to rehab and patient was accepted for transfer. Time for discharge 35 minutes. Patient Condition at Discharge: Stable Plan - Discharge Summary New Discharge Prescriptions: New Furosemide [Lasix] 40 mg PO BID@0900,1600 tab hydrALAZINE HCL [Apresoline] 100 mg PO TID tab Isosorbide Mononitrate ER [Imdur] 60 mg PO DAILY tab.er.24h Pantoprazole [Protonix] 40 mg PO AC-BRKFST tablet. Insulin Detemir [Levemir] 15 unit SQ HS #10 syr Insulin Detemir [Levemir] 10 unit SQ DAILY #10 syr Continue Nitroglycerin Sl Tabs [Nitrostat] 0.4 mg SUBLINGUAL Q5M PRN PRN Reason: Angina Carvedilol 25 mg PO AC-BID Docusate [Colace] 100 - 200 mg PO DAILY Spironolactone [Aldactone] 25 mg PO DAILY Losartan [Cozaar] 12.5 mg PO DAILY INSULIN LISPRO (humaLOG) [humaLOG] 8 - 21 units SQ AC-TID Discontinued HYDROcodone/APAP 5-325MG [[place] 5-325] 1 tab PO Q6H PRN PRN Reason: Pain Isosorbide Mononitrate ER [Imdur] 30 mg PO DAILY #30 tab.er.24h Insulin Glargine [Lantus] 35 unit SQ QAM Ibuprofen [Motrin] 400 mg PO Q6HR PRN PRN Reason: Pain Discharge Medication List Nitroglycerin Sl Tabs [Nitrostat] 0.4 mg SUBLINGUAL Q5M PRN 11/28/13 [History] Carvedilol 25 mg PO AC-BID 01/24/15 [History] Docusate [Colace] 100 - 200 mg PO DAILY 06/07/15 [History] INSULIN LISPRO (humaLOG) [humaLOG] 8 - 21 units SQ AC-TID 09/13/17 [History] Losartan [Cozaar] 12.5 mg PO DAILY 09/13/17 [History] Spironolactone [Aldactone] 25 mg PO DAILY 09/13/17 [History] Furosemide [Lasix] 40 mg PO BID@0900,1600 tab 09/23/17 [Rx] Isosorbide Mononitrate ER [Imdur] 60 mg PO DAILY tab.er.24h 09/23/17 [Rx] Pantoprazole [Protonix] 40 mg PO AC-BRKFST tablet. 09/23/17 [Rx] hydrALAZINE HCL [Apresoline] 100 mg PO TID tab 09/23/17 [Rx] Insulin Detemir [Levemir] 10 unit SQ DAILY #10 syr 09/26/17 [Rx] Insulin Detemir [Levemir] 15 unit SQ HS #10 syr 09/26/17 [Rx] Follow up Appointment(s)/Referral(s): Hollis Macdonald MD [STAFF PHYSICIAN] - 10/06/17 4:00 pm Dina Chang MD [STAFF PHYSICIAN] - 2 Weeks Jimi Hubbard DO [Primary Care Provider] - 1-2 days [facility], [NON-STAFF] - 1 Week aJcob Ruiz DO [STAFF PHYSICIAN] - 1 Week Patient Instructions/Handouts: Pancreatitis (DC) Activity/Diet/Wound Care/Special Instructions: Diabetic, cardiac diet with fluid restriction to 2 Liters daily Heart failure booklet and diabetic education booklet given and reviewed. Refused [employer]. Activity as tolerated, up with assist. Discharge Disposition: TRANSFER TO SNF/ECF
--- NOTE | 2017-09-26 09:41 | P.PN ---
Subjective Progress Note Date: 09/26/17 Principal diagnosis: Acute pancreatitis 72-year-old male limited with acute pancreatitis with radiographic imaging reported appendicolith. Resting comfortably. No complaints. Denies abdominal pain. LFTs within normal limits except alkaline phosphatase 268. Lipase 1001. T-max 99.3. Low-grade fevers 2 days ago 100.1-101.4; infectious disease general surgery following. Objective - Vital Signs Vital signs: Vital Signs Temp 98.4 F 09/26/17 07:00 Pulse 75 09/26/17 07:00 Resp 20 09/26/17 07:00 BP 139/76 09/26/17 07:00 Pulse Ox 92 L 09/26/17 07:00 Intake & Output 09/25/17 09/26/17 09/26/17 18:59 06:59 18:59 Intake Total 680 Output Total 600 Balance -600 680 Weight 113.5 kg Intake: Oral 680 Output: Urine 600 Other: # Voids 1 3 # Bowel Movements 1 1 - Exam General appearance: The patient is alert, in no acute distress. HET: Head is normocephalic and atraumatic. Pupils are equal and reactive. Sclerae anicteric. Oropharynx is clear without lesions. Neck: Supple without lymphadenopathy. Trachea midline. Heart: S1 S2. Regular rate and rhythm. Lungs: Slight diminishment in bases bilaterally. No crackles or wheezes are heard. Abdomen: Soft, nontender, with bloatedness distention hypoactive bowel sounds. No peritoneal signs. No palpable organomegaly or masses. Extremities: Normal skin color and turgor. No cyanosis, rash, ulceration, clubbing, or edema. Radial and pedal pulses are 2/4 bilaterally. Neurological: No focal deficits. Strength and sensation are grossly intact. - Labs CBC & Chem 7: 09/26/17 07:54 09/26/17 07:54 Labs: Abnormal Lab Results - Last 24 Hours (Table) 09/25/17 09/25/17 09/25/17 Range/Units 07:50 12:16 16:50 RBC 3.92 L (4.30-5.90) m/uL Hgb 11.5 L (13.0-17.5) gm/dL Hct 35.9 L (39.0-53.0) % Sodium (137-145) mmol/L Chloride (98-107) mmol/L Glucose (74-99) mg/dL POC Glucose (mg/dL) 256 H 323 H (75-99) mg/dL Magnesium (1.6-2.3) mg/dL Alkaline Phosphatase (38-126) U/L Albumin (3.5-5.0) g/dL Amylase (30-110) U/L Lipase (23-300) U/L 09/25/17 09/26/17 09/26/17 Range/Units 20:54 07:11 07:54 RBC 3.90 L (4.30-5.90) m/uL Hgb 11.5 L (13.0-17.5) gm/dL Hct 36.2 L (39.0-53.0) % Sodium (137-145) mmol/L Chloride (98-107) mmol/L Glucose (74-99) mg/dL POC Glucose (mg/dL) 267 H 237 H (75-99) mg/dL Magnesium (1.6-2.3) mg/dL Alkaline Phosphatase (38-126) U/L Albumin (3.5-5.0) g/dL Amylase (30-110) U/L Lipase (23-300) U/L 09/26/17 Range/Units 07:54 RBC (4.30-5.90) m/uL Hgb (13.0-17.5) gm/dL Hct (39.0-53.0) % Sodium 134 L (137-145) mmol/L Chloride 97 L (98-107) mmol/L Glucose 264 H (74-99) mg/dL POC Glucose (mg/dL) (75-99) mg/dL Magnesium 1.5 L (1.6-2.3) mg/dL Alkaline Phosphatase 268 H (38-126) U/L Albumin 3.1 L (3.5-5.0) g/dL Amylase 147 H (30-110) U/L Lipase 1001 H (23-300) U/L Microbiology - Last 24 Hours (Table) 09/24/17 09:05 Blood Culture - Preliminary Blood No Growth after 24 hours Assessment and Plan (1) Acute pancreatitis Narrative/Plan: 72-year-old male admitted with acute abdominal pain elevated pancreatic and liver enzymes consistent with acute moderate to severe pancreatitis with biochemical improvement of liver function tests; persistent elevation of lipase asymptomatic. No mentioning of gallstones on ultrasound or CAT scan. Current Visit: Yes Status: Acute Code(s): K85.90 - ACUTE PANCREATITIS WITHOUT NECROSIS OR INFECTION, UNSP SNOMED Code(s): 866797257 (2) Elevated serum creatinine Narrative/Plan: Acute kidney injury most likely acute tubular necrosis nonoliguric Current Visit: Yes Status: Acute Code(s): R79.89 - OTHER SPECIFIED ABNORMAL FINDINGS OF BLOOD CHEMISTRY SNOMED Code(s): 402336114 (3) Elevated liver enzymes Current Visit: Yes Status: Acute Code(s): R74.8 - ABNORMAL LEVELS OF OTHER SERUM ENZYMES SNOMED Code(s): 252217340 (4) Jaundice Narrative/Plan: Improved bilirubin suspect from peripancreatic edema improving Current Visit: Yes Status: Acute Code(s): R17 - UNSPECIFIED JAUNDICE SNOMED Code(s): 15872303 (5) Appendicolith Narrative/Plan: Possible early acute appendicitis being monitored closely by general surgery presently without fever or abdominal pain. Current Visit: Yes Status: Acute Code(s): K38.9 - DISEASE OF APPENDIX, UNSPECIFIED SNOMED Code(s): 96084930 (6) Obesity (BMI 30-39.9) Current Visit: Yes Status: Chronic Code(s): E66.9 - OBESITY, UNSPECIFIED SNOMED Code(s): 686973770 (7) Hyperkalemia Current Visit: Yes Status: Acute Code(s): E87.5 - HYPERKALEMIA SNOMED Code (s): 99775485 (8) Diabetes mellitus Current Visit: Yes Status: Chronic Code(s): E11.9 - TYPE 2 DIABETES MELLITUS WITHOUT COMPLICATIONS SNOMED Code(s): 58086336 (9) Hepatitis C antibody test positive Narrative/Plan: Suspect chronic HCV with positive quantitative measurement 415,721. Genotype 1A. Current Visit: Yes Status: Acute Code(s): R76.8 - OTHER SPECIFIED ABNORMAL IMMUNOLOGICAL FINDINGS IN SERUM SNOMED Code(s): 146565474 (10) Hyperammonemia Narrative/Plan: Possible underlying liver disease Current Visit: Yes Status: Acute Code(s): E72.20 - DISORDER OF UREA CYCLE METABOLISM, UNSPECIFIED SNOMED Code(s): 0350007 Plan: 1. Patient is asymptomatic despite persistent elevation of lipase. Patient is not a candidate for inpatient MRCP secondary to pacemaker insertion. Consideration for outpatient MRCP after discharge with follow-up in office discussion of HCV treatment. Multiple consultants following including infectious disease general surgery. Assessment and plan of care discussed with Dr. Macdonald.
[2017-09-26] MEDS: MAGNESIUM SULFATE-D5W PMX 1 GM in DEXTROSE/WATER 1 100ML.BAG IVPB SCH ×2 (10:05→11:09)
[2017-09-26 10:44] VITALS: RESP 18
== END 2017-09-26 12:17 | DRG 438 ==
LOC: SUPCPDRO 05:28 → EC 05:28 → 5MS5E 09:33 → 6SEL 09-19 14:48 → 4MS4W 09-21 23:46
PROVIDERS: ADMIT Family Medicine; ATTEND Family Medicine
DX: K85.90 Acute pancreatitis without necrosis or infection, unspecified (principal); I50.23 Acute on chronic systolic (congestive) heart failure; N17.0 Acute kidney failure with tubular necrosis; J96.01 Acute respiratory failure with hypoxia; D69.59 Other secondary thrombocytopenia; E11.42 Type 2 diabetes mellitus with diabetic polyneuropathy; E11.65 Type 2 diabetes mellitus with hyperglycemia; E87.2 Acidosis; I42.9 Cardiomyopathy, unspecified; J98.11 Atelectasis; S37.39XA Other injury of urethra, initial encounter; J44.9 Chronic obstructive pulmonary disease, unspecified; B18.2 Chronic viral hepatitis C; E66.9 Obesity, unspecified; E78.5 Hyperlipidemia, unspecified; M19.90 Unspecified osteoarthritis, unspecified site; M10.9 Gout, unspecified; M51.36 Other intervertebral disc degeneration, lumbar region; I11.0 Hypertensive heart disease with heart failure; E87.5 Hyperkalemia; F32.9 Major depressive disorder, single episode, unspecified; F03.90 Unspecified dementia, unspecified severity, without behavioral disturbance, psychotic disturbance, mood disturbance, and anxiety; E78.00 Pure hypercholesterolemia, unspecified; I27.20 Pulmonary hypertension, unspecified; K38.1 Appendicular concretions; R32 Unspecified urinary incontinence; G47.30 Sleep apnea, unspecified; R31.0 Gross hematuria; R53.81 Other malaise; X58.XXXA Exposure to other specified factors, initial encounter; Y92.230 Patient room in hospital as the place of occurrence of the external cause; Z79.82 Long term (current) use of aspirin; Z79.4 Long term (current) use of insulin; I25.2 Old myocardial infarction; Z68.36 Body mass index [BMI] 36.0-36.9, adult; Z95.810 Presence of automatic (implantable) cardiac defibrillator; Z79.899 Other long term (current) drug therapy; Z86.61 Personal history of infections of the central nervous system
CPT/HCPCS: 36415; 36600; 71045; 71046; 74022; 74176; 76705; 80053; 80061; 80074; 80320; 81001; 82105; 82140; 82150; 82248; 82550; 82553; 82805; 83036; 83605; 83690; 83735; 84100; 84132; 84484; 85025; 85610; 86301; 87040; 87086; 87205; 87324; 87522; 87902; 93005; 93306; 94660; 94760; 96361; 96374; 96375; 99285

== ENCOUNTER 2018-01-06 03:06 | Inpatient (IN) | payer MEDICARE, OTHER ==
[2018-01-06] MEDS ORDERED: SODIUM CHLORIDE 0.9% 500 ML IV STA (03:12)
[2018-01-06] MEDS ORDERED: SODIUM CHLORIDE 0.9% 1,000 ML IV STA (03:12)
[2018-01-06] MEDS ORDERED: MORPHINE SULFATE 2 MG/ML SYRINGE IVP STA (04:15)
[2018-01-06] MEDS ORDERED: IPRATROPIUM-ALBUTEROL 3 ML NEB INHALATION STA (04:36)
[2018-01-06] MEDS ORDERED: hydrALAZINE HCL 20 MG/ML 1 ML VIAL IVP STA (04:36)
--- NOTE | 2018-01-06 05:10 | ED ---
General Adult HPI - General Source: EMS, RN notes reviewed, old records reviewed Mode of arrival: EMS Limitations: no limitations <Walker Henry - Last Filed: 01/06/18 06:52> <Sadaf Le - Last Filed: 01/06/18 12:24> - General Chief complaint: Chest Pain Stated complaint: Chest pain Time Seen by Provider: 01/06/18 03:11 - History of Present Illness Initial comments: This is a 70-year-old male the ER for evaluation. Patient does say for evasive chest pain abdominal pain. Patient is a complex recent medical history is recent hospital admission. Patient's poor historian. History obtained by EMS ( Walker Henry) - Related Data Home Medications Medication Instructions Recorded Confirmed Nitroglycerin Sl Tabs [Nitrostat] 0.4 mg SUBLINGUAL Q5M PRN 11/28/13 01/06/18 Carvedilol 25 mg PO AC-BID 01/24/15 01/06/18 Docusate [Colace] 100 mg PO HS PRN 06/07/15 01/06/18 INSULIN LISPRO (humaLOG) [humaLOG] See Protocol SQ AC-TID 09/13/17 01/06/18 Losartan [Cozaar] 12.5 mg PO DAILY 09/13/17 01/06/18 Spironolactone [Aldactone] 25 mg PO DAILY 09/13/17 01/06/18 Atorvastatin [Lipitor] 20 mg PO HS 01/06/18 01/06/18 Gabapentin [Neurontin] 400 mg PO TID 01/06/18 01/06/18 Glecaprevir/Pibrentasvir [Mavyret 3 tab PO DAILY 01/06/18 01/06/18 100-40 mg Tablet] HYDROcodone/APAP 7.5-325MG [[place] 1 tab PO Q6HR PRN 01/06/18 01/06/18 7.5-325] Insulin Detemir [Levemir] 35 unit SQ DAILY 01/06/18 01/06/18 Magnesium Oxide [Mag-Ox] 400 mg PO DAILY 01/06/18 01/06/18 Previous Rx's Medication Instructions Recorded Furosemide [Lasix] 40 mg PO BID@0900,1600 tab 09/23/17 Isosorbide Mononitrate ER [Imdur] 60 mg PO DAILY tab.er.24h 09/23/17 Pantoprazole [Protonix] 40 mg PO AC-BRKFST tablet. 09/23/17 hydrALAZINE HCL [Apresoline] 100 mg PO TID tab 09/23/17 Allergies Allergy/AdvReac Type Severity Reaction Status Date / Time No Known Allergies Allergy Verified 01/06/18 07:39 Review of Systems ROS Other: All systems not noted in ROS Statement are negative. <Walker Henry - Last Filed: 01/06/18 06:52> ROS Other: All systems not noted in ROS Statement are negative. <Sadaf Le - Last Filed: 01/06/18 12:24> ROS Statement: Those systems with pertinent positive or pertinent negative responses have been documented in the HPI. Past Medical History Past Medical History: Chest Pain / Angina, Heart Failure, COPD, Diabetes Mellitus, Hyperlipidemia, Hypertension, Myocardial Infarction (DE), Osteoarthritis (OA) Additional Past Medical History / Comment(s): 06/07/15 Pt presented to [facility] ER EMS feeling weak and having mild headache and anterior neck pain. Symptoms began days ago. Pt being admitted with clinical impression of weakness, acute renal failure. PT last admitted to [facility] 01/24/15 with acute DKA, acute metabolic encephalitis from DKA, acute renal failure, severe hyperkalemia, pseudohyponatremia. 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 Last Myocardial Infarction Date:: 11/2013 History of Any Multi-Drug Resistant Organisms: None Reported Past Surgical History: Heart Catheterization, Pacemaker Additional Past Surgical History / Comment(s): CATARACTS TRAY EYES REMOVED. liver biopsy on 10-18-13, heart cath 2004 Past Anesthesia/Blood Transfusion Reactions: No Reported Reaction Type of Cardiac Device: Permanent Pacemaker Device Placement Date:: UNK Past Psychological History: Bipolar, Depression Smoking Status: Never smoker Past Alcohol Use History: Occasional Past Drug Use History: None Reported - Past Family History Mother Family Medical History: Cancer Sister(s) Family Medical History: Cancer <Walker Henry - Last Filed: 01/06/18 06:52> General Exam Limitations: no limitations General appearance: alert, in no apparent distress Head exam: Present: atraumatic, normocephalic, normal inspection Eye exam: Present: normal appearance, PERRL, EOMI. Absent: scleral icterus, conjunctival injection, periorbital swelling ENT exam: Present: normal exam, mucous membranes moist Neck exam: Present: normal inspection. Absent: tenderness, meningismus, lymphadenopathy Respiratory exam: Present: normal lung sounds bilaterally. Absent: respiratory distress, wheezes, rales, rhonchi, stridor Cardiovascular Exam: Present: regular rate, normal rhythm, normal heart sounds. Absent: systolic murmur, diastolic murmur, rubs, gallop, clicks GI/Abdominal exam: Present: soft, normal bowel sounds. Absent: distended, tenderness, guarding, rebound, rigid Extremities exam: Present: normal inspection, full ROM, normal capillary refill. Absent: tenderness, pedal edema, joint swelling, calf tenderness Back exam: Present: normal inspection Neurological exam: Present: alert, oriented X3, CN II-XII intact Psychiatric exam: Present: normal affect, normal mood Skin exam: Present: warm, dry, intact, normal color. Absent: rash <Walker Henry - Last Filed: 01/06/18 06:52> Course <Walker Henry - Last Filed: 01/06/18 06:52> <Sadaf Le - Last Filed: 01/06/18 12:24> Vital Signs 01/06/18 01/06/18 01/06/18 03:15 04:44 05:37 Temperature 98.3 F 98.4 F Pulse Rate 79 78 82 Respiratory 18 18 Rate Blood Pressure 202/110 170/74 O2 Sat by Pulse 93 L 95 Oximetry 01/06/18 01/06/18 01/06/18 05:40 05:56 08:50 Temperature Pulse Rate 70 80 74 Respiratory 18 18 Rate Blood Pressure 170/98 96/56 O2 Sat by Pulse 95 96 Oximetry 01/06/18 09:39 Temperature Pulse Rate 77 Respiratory 18 Rate Blood Pressure 119/70 O2 Sat by Pulse 99 Oximetry Is in was reassessed on arrival 70 the morning, patient had no IV access nursing staff was trying to establish an IV access. Labs were reviewed CBC is unremarkable compress metabolic panel was reviewed noticed that creatinine is 1.8 potassium is 5.9 troponin is elevated as well patient will get some Kayexalate for potassium cardiology Dr. Boudreaux was down here to see him magnesium is quite low patient was given 4 mg of magnesium by mouth and 1 g IV considering his creatinine is high is not a candidate for CT angiogram I changed that to the VQ scan and noticed that his troponin is concerned cardiology is aware of the chest x-ray showed mild congestion probably will continue some Lasix for help with the potassium as well had a cross Were ordered CT abdomen and pelvis with the contrast to have a change in without the contrast considering his creatinine is high. CT of the abdomen and pelvis was reviewed at 1059 it's unremark VQ scan is still pending,VQ scan is still pending At 1157 his pulmonary embolism studies are still pending, disposition be done as soon as pulmonary embolism studies are completed (Sadaf Le) - Reevaluation(s) Reevaluation #1: 01/06/18 05:36 Patient multiple times have lab draws and IV start by both EMS, and nursing staff here in the ER which were unsuccessful Myself attempted both peripheral ultrasound IV as well as right IJ central line , which were unable to advance or pass. (Walker Henry) Nuclear medicine report was available at 12:15 it shows low probability for PE 01/06/18 12:23 (Sadaf Le) EKG Findings - EKG Comments: EKG Findings:: EKG shows paced rhythm at 79, LA 120, QRS 134, QTC 458 <Walker Henry - Last Filed: 01/06/18 06:52> Medical Decision Making - Lab Data Result diagrams: 01/06/18 06:35 01/06/18 06:35 <Sadaf Le - Last Filed: 01/06/18 12:24> - Lab Data Lab Results 01/06/18 01/06/18 01/06/18 Range/Units 05:49 06:35 06:35 WBC 8.6 (3.8-10.6) k/uL RBC 4.89 (4.30-5.90) m/uL Hgb 14.1 (13.0-17.5) gm/dL Hct 44.2 (39.0-53.0) % MCV 90.2 (80.0-100.0) fL MCH 28.7 (25.0-35.0) pg MCHC 31.8 (31.0-37.0) g/dL RDW 13.6 (11.5-15.5) % Plt Count 160 (150-450) k/uL Neutrophils % 92 % Lymphocytes % 4 % Monocytes % 2 % Eosinophils % 1 % Basophils % 0 % Neutrophils # 8.0 H (1.3-7.7) k/uL Lymphocytes # 0.4 L (1.0-4.8) k/uL Monocytes # 0.2 (0-1.0) k/uL Eosinophils # 0.1 (0-0.7) k/uL Basophils # 0.0 (0-0.2) k/uL PT 10.5 (9.0-12.0) sec INR 1.1 (<1.2) APTT 21.6 L (22.0-30.0) sec D-Dimer 3.71 H (<0.60) mg/L FEU Sodium (137-145) mmol/L Potassium (3.5-5.1) mmol/L Chloride (98-107) mmol/L Carbon Dioxide (22-30) mmol/L Anion Gap mmol/L BUN (9-20) mg/dL Creatinine (0.66-1.25) mg/dL Est GFR (CKD-EPI)AfAm (>60 ml/min/1.73 sqM) Est GFR (CKD-EPI)NonAf (>60 ml/min/1.73 sqM) Glucose (74-99) mg/dL POC Glucose (mg/dL) 205 H (75-99) mg/dL POC Glu Survival Specialist ID Janeth Foster Calcium (8.4-10.2) mg/dL Phosphorus (2.5-4.5) mg/dL Magnesium (1.6-2.3) mg/dL Total Bilirubin (0.2-1.3) mg/dL AST (17-59) U/L ALT (21-72) U/L Alkaline Phosphatase (38-126) U/L Total Creatine Kinase (55-170) U/L CK-MB (CK-2) (0.0-2.4) ng/mL CK-MB (CK-2) Rel Index Troponin I (0.000-0.034) ng/mL NT-Pro-B Natriuret Pep pg/mL Total Protein (6.3-8.2) g/dL Albumin (3.5-5.0) g/dL 01/06/18 01/06/18 01/06/18 Range/Units 06:35 06:35 06:35 WBC (3.8-10.6) k/uL RBC (4.30-5.90) m/uL Hgb (13.0-17.5) gm/dL Hct (39.0-53.0) % MCV (80.0-100.0) fL MCH (25.0-35.0) pg MCHC (31.0-37.0) g/dL RDW (11.5-15.5) % Plt Count (150-450) k/uL Neutrophils % % Lymphocytes % % Monocytes % % Eosinophils % % Basophils % % Neutrophils # (1.3-7.7) k/uL Lymphocytes # (1.0-4.8) k/uL Monocytes # (0-1.0) k/uL Eosinophils # (0-0.7) k/uL Basophils # (0-0.2) k/uL PT (9.0-12.0) sec INR (<1.2) APTT (22.0-30.0) sec D-Dimer (<0.60) mg/L FEU Sodium 139 (137-145) mmol/L Potassium 5.9 H (3.5-5.1) mmol/L Chloride 101 (98-107) mmol/L Carbon Dioxide 27 (22-30) mmol/L Anion Gap 11 mmol/L BUN 38 H (9-20) mg/dL Creatinine 1.85 H (0.66-1.25) mg/dL Est GFR (CKD-EPI)AfAm 41 (>60 ml/min/1.73 sqM) Est GFR (CKD-EPI)NonAf 36 (>60 ml/min/1.73 sqM) Glucose 238 H (74-99) mg/dL POC Glucose (mg/dL) (75-99) mg/dL POC Glu Survival Specialist ID Calcium 9.3 (8.4-10.2) mg/dL Phosphorus 2.3 L (2.5-4.5) mg/dL Magnesium 1.0 L* (1.6-2.3) mg/dL Total Bilirubin 2.8 H (0.2-1.3) mg/dL AST 114 H (17-59) U/L ALT 39 (21-72) U/L Alkaline Phosphatase 174 H (38-126) U/L Total Creatine Kinase 64 (55-170) U/L CK-MB (CK-2) 1.2 (0.0-2.4) ng/mL CK-MB (CK-2) Rel Index 1.9 Troponin I 0.038 H* (0.000-0.034) ng/mL NT-Pro-B Natriuret Pep 4610 pg/mL Total Protein 7.8 (6.3-8.2) g/dL Albumin 4.2 (3.5-5.0) g/dL Disposition Is patient prescribed a controlled substance at d/c from ED?: No <Walker Henry - Last Filed: 01/06/18 06:52> <Sadaf Le - Last Filed: 01/06/18 12:24> Clinical Impression: Atypical chest pain, Chest pain, Abdominal pain Disposition: ADMITTED IP TO THIS HOSP Condition: Serious
--- NOTE | 2018-01-06 05:13 | XR ---
EXAM: XR Chest, 2 Views CLINICAL HISTORY: Weakness TECHNIQUE: Frontal and lateral views of the chest. COMPARISON: Chest x-ray dated 12/11/2017 FINDINGS: Lungs: Moderate pulmonary vascular congestion. Pleural space: Moderate to large bilateral pleural effusions. No pneumothorax. Heart: Unremarkable. No cardiomegaly. Mediastinum: Unremarkable. Bones/joints: No acute osseous abnormality. Tubes, lines and devices: Enlarged cardiomediastinal silhouette with biventricular cardiac pacemaker/AICD. IMPRESSION: 1. Moderate pulmonary vascular congestion. 2. Moderate to large bilateral pleural effusions.
[2018-01-06] MEDS ORDERED: CARVEDILOL 12.5 MG TAB PO STA (05:51)
[2018-01-06] MEDS ORDERED: HYDROcodone/APAP 10-325MG 1 EACH TAB PO ONE (05:51)
[2018-01-06] MEDS ORDERED: hydrALAZINE HCL 50 MG TAB PO STA (05:51)
[2018-01-06 06:03] LABS: Glucose,Whole Blood 205 mg/dL (75-99)
[2018-01-06 06:48] LABS: Basophils % (A) 0 %; Eosinophils # (A) 0.1 k/uL (0-0.7); Eosinophils % (A) 1 %; HCT 44.2 % (39.0-53.0); HGB 14.1 gm/dL (13.0-17.5); Lymphocytes # (A) 0.4 k/uL (1.0-4.8); Lymphocytes % (A) 4 %; MCH 28.7 pg (25.0-35.0); MCHC 31.8 g/dL (31.0-37.0); MCV 90.2 fL (80.0-100.0); Monocytes # (A) 0.2 k/uL (0-1.0); Monocytes % (A) 2 %; Neutrophils % (A) 92 %; Platelet Count 160 k/uL (150-450); RBC 4.89 m/uL (4.30-5.90); RDW 13.6 % (11.5-15.5); WBC 8.6 k/uL (3.8-10.6)
[2018-01-06 06:58] LABS: Albumin 4.2 g/dL (3.5-5.0); Calcium 9.3 mg/dL (8.4-10.2); Phosphorus 2.3 mg/dL (2.5-4.5); Potassium 5.9 mmol/L (3.5-5.1); Total Bilirubin 2.8 mg/dL (0.2-1.3); Total Protein 7.8 g/dL (6.3-8.2)
[2018-01-06 07:11] LABS: INR 1.1 (<1.2); Prothrombin Time 10.5 sec (9.0-12.0)
[2018-01-06 07:16] LABS: Partial Thromboplastin Time 21.6 sec (22.0-30.0)
[2018-01-06 07:17] LABS: D-Dimer 3.71 mg/L FEU (<0.60)
[2018-01-06 07:20] LABS: Creatine Kinase MB 1.2 ng/mL (0.0-2.4); Troponin I 0.038 ng/mL (0.000-0.034)
[2018-01-06] MEDS ORDERED: METOPROLOL TARTRATE 12.5 MG TAB PO STA (08:26)
[2018-01-06] MEDS: NITROGLYCERIN OINT 1 INCH/GM PACKET TOPICAL STA ×2 (08:49→09:37)
[2018-01-06] MEDS ORDERED: MAGNESIUM SULFATE-D5W PMX 1 GM in DEXTROSE/WATER 1 100ML.BAG IVPB ONE (09:51)
[2018-01-06] MEDS ORDERED: MAGNESIUM OXIDE 400 MG TAB PO STA (09:52)
[2018-01-06] MEDS ORDERED: SODIUM POLYSTYRENE SULFONATE 15 GM/60 ML BOTTLE PO STA (09:57)
[2018-01-06] MEDS ORDERED: FUROSEMIDE 10 MG/ML 2 ML VIAL IV STA (09:57)
--- NOTE | 2018-01-06 10:34 | CT ---
EXAMINATION TYPE: CT abdomen pelvis wo con DATE OF EXAM: 01/06/2018 HISTORY: Chest and stomach pains CT DLP: 1448 mGycm. Automated Exposure Control for Dose Reduction was Utilized. TECHNIQUE: CT scan of the abdomen and pelvis is performed without oral or IV contrast. COMPARISON: CT scan of abdomen and pelvis September 16, 2017 FINDINGS: Within the limitations of a non-contrast study, the following observations are made. LUNG BASES: There is redemonstration of cardiomegaly with multi lead pacemaker/AICD with tiny bilater al pleural effusions improved from prior in scattered areas of scarring and/or atelectasis posteriorl y in both bases redemonstrated. LIVER/GB: No significant abnormality is appreciated. PANCREAS: Persistent heterogeneous fullness pancreatic head without ductal dilatation likely normal v ariant. SPLEEN: No significant abnormality is seen. ADRENALS: No significant abnormality is seen. KIDNEYS: There is 1 cm simple appearing cyst laterally mid pole level left kidney axial image 29. No renal stones or hydronephrosis is present bilaterally. Bladder is poorly distended and thus suboptima lly evaluated. Bladder wall thickness measures up to 9 mm, a cystitis cannot be excluded in appropria te clinical setting, correlate clinically. BOWEL: Appendix is not dilated, there is focal 8 mm hyperdensity coronal image 48 suspicious for appe ndicolith. No surrounding inflammatory change is present. No significant change from prior CT. No manuel picious small or large bowel dilatation. Mild prominence of duodenal sweep is noted without suspiciou s stomach dilatation. GENITAL ORGANS: Prostate gland is felt upper limits of normal in size. LYMPH NODES: No greater than 1cm abdominal or pelvic lymph nodes are appreciated. OSSEOUS STRUCTURES: There is vacuum disc phenomenon with mild to moderate disc space narrowing L3-L4 and L4-L5 levels. Posterior disc herniations are redemonstrated at these levels. OTHER: No significant additional abnormality is seen. IMPRESSION: No significant new or acute finding is seen to account for patient's symptoms. Persistent appendicolith without inflammatory change to suggest acute appendicitis. Possible cystitis, correlat e clinically.
--- NOTE | 2018-01-06 12:17 | NM ---
EXAMINATION TYPE: NM pul vent and perfuse DATE OF EXAM: 01/06/2018 COMPARISON: Chest x-ray from earlier today. HISTORY: Weakness rule out pulmonary embolism TECHNIQUE: Utilizing inhalation of 39.5 mCi Tc 99m DTPA aerosol and intravenous injection of 5.12 mC i of Tc 99m MAA, ventilation and perfusion images are acquired post injection in multiple projections . FINDINGS: There is central clumping and poor uptake on ventilation images likely reflecting product of underlyi ng COPD. Some small to moderate-sized matching defects are present most prominent in the left lung. N o mismatch defects are however seen. IMPRESSION: Low scintigraphic evidence for pulmonary embolism
--- NOTE | 2018-01-06 14:28 | CONS ---
CONSULTATION CHIEF COMPLAINT: Elevated troponin. Mr. Andino is a 72-year-old gentleman with history of diabetes, hypertension, dyslipidemia, COPD and congestive heart failure, who presented to hospital with symptoms of not feeling well, vague abdominal discomfort and vague chest pain. Cardiology had been consulted because of elevated troponin. At the time of my evaluation, he is chest pain-free. He had elevated D-dimer and had a V/Q scan that was low probability for pulmonary embolism. His hemoglobin is normal at 14.1. Potassium is elevated at 5.9, BUN and creatinine are elevated. Magnesium was low at 1, which has been supplemented. The first set of troponin is high at 0.038 and the BNP is elevated. The patient had an echocardiogram in September of 2017 that showed normal LV function. PAST MEDICAL HISTORY: Significant for hypertension, insulin-requiring diabetes, dyslipidemia. CURRENT MEDICATIONS: Include hydralazine 100 t.i.d., Aldactone 25 mg daily, Protonix, magnesium, Cozaar, Imdur, Levemir insulin, [place], Neurontin, Lasix, Colace, carvedilol, and Lipitor. ALLERGIES: There are no known drug allergies. FAMILY HISTORY: Negative for premature coronary artery disease. SOCIAL HISTORY: Negative for current smoking, EtOH abuse, or drug abuse. REVIEW OF SYSTEMS: The patient is a poor historian. His main symptoms seem to be vague abdominal pain and vague chest pain and then not feeling well. EXAM: Comfortable at rest. Vital signs are stable. Blood pressure is 101/50, respirations 18. Chest exam reveals diminished air entry at the bases. Heart exam reveals first and second heart sounds with systolic murmur at the apex. Abdomen is soft. Exam of the extremities reveal trace edema. The patient had a chest x-ray that showed cardiomegaly and a possible pacer defibrillator with bilateral pleural effusions. CT scan of the chest and abdomen was negative for any changes of acute abdomen. EKG shows sinus paced rhythm with nonspecific ST-T wave changes. Labs show a hemoglobin of 14.1, white cell count is normal, potassium is 5.9, BUN is 38, creatinine is 1.8, magnesium is 1. Troponin is 0.038. BNP is 4610. ASSESSMENT: 1. Chest pain. 2. Acute onset diastolic heart failure. 3. Hypertension. 4. Renal failure. 5. Elevated D-dimer. PLAN: The elevated troponin is probably related to the underlying renal insufficiency. I am going to obtain a 2D echo to document his LV function. I am going to review his old records. I am going to stop the Aldactone that the patient was on at home due to elevated potassium, treat him with IV Lasix and resume beta blockers at a lower dose and hold the ARB's at this time. VI / GERALDINE: [id number] /
[2018-01-06 16:19] LABS: Glucose,Whole Blood 469 mg/dL (75-99)
[2018-01-06 16:19] LABS: Glucose,Whole Blood 502 mg/dL (75-99)
[2018-01-06] MEDS ORDERED: NITROGLYCERIN SL TABS 0.4 MG TAB SUBLINGUAL PRN (16:25)
[2018-01-06] MEDS ORDERED: DOCUSATE 100 MG CAP PO PRN (16:25)
[2018-01-06] MEDS: INSULIN DETEMIR 100 UNIT/ML 10 ML VIAL SQ SCH (16:59)
[2018-01-06] MEDS: CARVEDILOL 12.5 MG TAB PO SCH (16:59)
[2018-01-06] MEDS: INSULIN ASPART 100 UNIT/ML 1 ML 10 ML VIAL SQ SCH ×2 (17:00→23:30)
[2018-01-06] MEDS: MAGNESIUM OXIDE 400 MG TAB PO SCH (17:05)
[2018-01-06] MEDS: PANTOPRAZOLE 40 MG TABLET PO SCH (17:05)
[2018-01-06 17:14] LABS: Albumin 3.5 g/dL (3.5-5.0); Calcium 8.4 mg/dL (8.4-10.2); Magnesium 1.4 mg/dL (1.6-2.3); Total Protein 6.6 g/dL (6.3-8.2)
[2018-01-06 17:26] LABS: Potassium 6.6 mmol/L (3.5-5.1)
[2018-01-06] MEDS ORDERED: FUROSEMIDE 10 MG/ML 4 ML VIAL ONE (17:27)
--- NOTE | 2018-01-06 17:31 | P.HPIM ---
History of Present Illness H&P Date: 01/06/18 Chief Complaint: Abdomen and chest pain 72-year-old male with history of multiple medical conditions as detailed below presented to emergency department because of 2 days history of abdominal and chest pain. Patient is a poor historian and when I saw him he was lethargic and sleepy. He denied having any fevers or chills, no chest pain or shortness of breath, no diarrhea, no hematemesis or hematochezia. He did admit to nausea and vomiting 4. In the emergency department he was found to have high potassium at 5.9, low magnesium at 1 and elevated troponin at 0.038. 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 Last Myocardial Infarction Date:: 11/2013 History of Any Multi-Drug Resistant Organisms: None Reported Past Surgical History: Heart Catheterization, Pacemaker Additional Past Surgical History / Comment(s): PTCA 2010 in [place], CATARACTS TRAY EYES REMOVED. liver biopsy on 10-18-13, Past Anesthesia/Blood Transfusion Reactions: No Reported Reaction Type of Cardiac Device: Permanent Pacemaker Device Placement Date:: 2013? pt unsure Smoking Status: Never smoker - Past Family History Mother Family Medical History: Hypertension Sister(s) Family Medical History: Cancer Father History Unknown: Yes Medications and Allergies Home Medications Medication Instructions Recorded Confirmed Type Nitroglycerin Sl Tabs [Nitrostat] 0.4 mg SUBLINGUAL Q5M PRN 11/28/13 01/06/18 History Carvedilol 25 mg PO AC-BID 01/24/15 01/06/18 History Docusate [Colace] 100 mg PO HS PRN 06/07/15 01/06/18 History INSULIN LISPRO (humaLOG) [humaLOG] See Protocol SQ AC-TID 09/13/17 01/06/18 History Losartan [Cozaar] 12.5 mg PO DAILY 09/13/17 01/06/18 History Spironolactone [Aldactone] 25 mg PO DAILY 09/13/17 01/06/18 History Furosemide [Lasix] 40 mg PO BID@0900,1600 tab 09/23/17 01/06/18 Rx Isosorbide Mononitrate ER [Imdur] 60 mg PO DAILY tab.er.24h 09/23/17 01/06/18 Rx Pantoprazole [Protonix] 40 mg PO AC-BRKFST tablet. 09/23/17 01/06/18 Rx hydrALAZINE HCL [Apresoline] 100 mg PO TID tab 09/23/17 01/06/18 Rx Atorvastatin [Lipitor] 20 mg PO HS 01/06/18 01/06/18 History Gabapentin [Neurontin] 400 mg PO TID 01/06/18 01/06/18 History Glecaprevir/Pibrentasvir [[place] 3 tab PO DAILY 01/06/18 01/06/18 History 100-40 mg Tablet] HYDROcodone/APAP 7.5-325MG [[place] 1 tab PO Q6HR PRN 01/06/18 01/06/18 History 7.5-325] Insulin Detemir [Levemir] 35 unit SQ DAILY 01/06/18 01/06/18 History Magnesium Oxide [Mag-Ox] 400 mg PO DAILY 01/06/18 01/06/18 History Allergies Allergy/AdvReac Type Severity Reaction Status Date / Time No Known Allergies Allergy Verified 01/06/18 07:39 Physical Exam Vitals: Vital Signs Temp Pulse Pulse Resp BP BP Pulse Ox 01/06/18 16:06 96.8 F L 66 18 148/67 92 L 01/06/18 14:58 98.4 F 80 18 105/68 95 01/06/18 13:43 65 18 90/55 95 01/06/18 12:40 101/56 01/06/18 12:38 65 18 89/54 96 01/06/18 09:39 77 18 119/70 99 01/06/18 08:50 74 18 96/56 96 01/06/18 05:56 80 01/06/18 05:40 70 18 170/98 95 01/06/18 05:37 82 01/06/18 04:44 98.4 F 78 18 170/74 95 01/06/18 03:15 98.3 F 79 18 202/110 93 L Intake and Output 01/06/18 01/06/18 01/06/18 06:59 14:59 22:59 Other: Weight 102.058 kg Constitutional: Lethargic, briefly answers questions with soft toned voice and drifts back to sleep. Eyes:Anicteric sclerae, moist conjunctiva, no lid-lag, PERRLA, ENMT: Oropharynx clear, no erythema, exudates Neck: Supple, FROM, no masses, or JVD, No carotid bruits, No thyromegaly Lungs: Clear to auscultation, Clear to percussion, Normal respiratory effort, no accessory muscle use Cardiovascular: Heart regular in rate and rhythm, No murmurs, gallops, or rubs, No peripheral edema Abdominal: Soft, Nontender, no guarding, rebound or rigidity, Normoactive bowel sounds, No hepatomegaly, No splenomegaly, No palpable mass Skin: Normal temperature, tone, texture, turgor, no induration, No subcutaneous nodules, No rash, lesions, No ulcers Extremities: No digital cyanosis, No clubbing, Pedal pulses intact and symmetrical, Radial pulses intact and symmetrical, No calf tenderness Psychiatric: Alert and oriented to person, place and time, appropriate affect, intact judgement Neuro: Muscles Strength 5/5 in all 4 extremities, Sensation to light touch grossly present throughout, Cranial nerves II-XII grossly intact, no focal sensory deficits Results CBC & Chem 7: 01/06/18 06:35 01/06/18 06:35 Labs: Abnormal Lab Results - Last 24 Hours (Table) 01/06/18 01/06/18 01/06/18 Range/Units 05:49 06:35 06:35 Neutrophils # 8.0 H (1.3-7.7) k/uL Lymphocytes # 0.4 L (1.0-4.8) k/uL APTT 21.6 L (22.0-30.0) sec D-Dimer 3.71 H (<0.60) mg/L FEU Potassium (3.5-5.1) mmol/L BUN (9-20) mg/dL Creatinine (0.66-1.25) mg/dL Glucose (74-99) mg/dL POC Glucose (mg/dL) 205 H (75-99) mg/dL Phosphorus (2.5-4.5) mg/dL Magnesium (1.6-2.3) mg/dL Total Bilirubin (0.2-1.3) mg/dL AST (17-59) U/L Alkaline Phosphatase (38-126) U/L Troponin I (0.000-0.034) ng/mL 01/06/18 01/06/18 01/06/18 Range/Units 06:35 06:35 16:16 Neutrophils # (1.3-7.7) k/uL Lymphocytes # (1.0-4.8) k/uL APTT (22.0-30.0) sec D-Dimer (<0.60) mg/L FEU Potassium 5.9 H (3.5-5.1) mmol/L BUN 38 H (9-20) mg/dL Creatinine 1.85 H (0.66-1.25) mg/dL Glucose 238 H (74-99) mg/dL POC Glucose (mg/dL) 502 H (75-99) mg/dL Phosphorus 2.3 L (2.5-4.5) mg/dL Magnesium 1.0 L* (1.6-2.3) mg/dL Total Bilirubin 2.8 H (0.2-1.3) mg/dL AST 114 H (17-59) U/L Alkaline Phosphatase 174 H (38-126) U/L Troponin I 0.038 H* (0.000-0.034) ng/mL 01/06/18 Range/Units 16:17 Neutrophils # (1.3-7.7) k/uL Lymphocytes # (1.0-4.8) k/uL APTT (22.0-30.0) sec D-Dimer (<0.60) mg/L FEU Potassium (3.5-5.1) mmol/L BUN (9-20) mg/dL Creatinine (0.66-1.25) mg/dL Glucose (74-99) mg/dL POC Glucose (mg/dL) 469 H (75-99) mg/dL Phosphorus (2.5-4.5) mg/dL Magnesium (1.6-2.3) mg/dL Total Bilirubin (0.2-1.3) mg/dL AST (17-59) U/L Alkaline Phosphatase (38-126) U/L Troponin I (0.000-0.034) ng/mL Thrombosis Risk Factor Assmnt - Choose All That Apply Any of the Below Risk Factors Present?: Yes Each Factor Represents 1 point: Obesity (BMI >25) Other Risk Factors: Yes Each Risk Factor Represents 2 Points: Age 61-74 years Other congenital or acquired thrombophilia - If yes, enter type in comment: No Thrombosis Risk Factor Assessment Total Risk Factor Score: 3 Thrombosis Risk Factor Assessment Level: Moderate Risk Assessment and Plan Plan: Abdominal and chest pain Check amylase, lipase, patient was recently discharged last September after an admission for acute pancreatitis EKG reviewed, no acute ST or T-wave changes. Repeat troponin Seen by cardiology He states his pain is better now. Acute exacerbation of chronic systolic congestive heart failure Lasix IV Check echo Continue Coreg, hold LUCINDA inhibitor because of renal failure Seen by cardio Acute renal failure with hyperkalemia Check UA Hold LUCINDA inhibitor Recheck electrolytes and renal function now, patient was given 1 dose of Kayexalate in the ER Can't be hydrated as he will need diuresis with Lasix due to CHF exacerbation Diabetes mellitus type 2 with hyperglycemia Check stat electrolytes to rule out DKA Resume home insulin regimen Sliding scale insulin moderate dose Blood sugar check CBC and at bedtime Hypomagnesemia Replaced with 2 gm Recheck now Essential hypertension, COPD, hyperlipidemia, osteoarthritis Stable Resume home meds DVT prophylaxis Heparin subcu
[2018-01-06] MEDS ORDERED: SODIUM BICARB 8.4% 50 ML VIAL (1 MEQ/ML) IV ONE (17:49)
[2018-01-06] MEDS ORDERED: SODIUM BICARB 8.4% 50 ML SYR (1 MEQ/ML) IV ONE (18:00)
[2018-01-06 18:32] LABS: ABG Base Excess -5.7 mmol/L; ABG HCO3 21 mmol/L (21-25); ABG Oxygen Saturation 97.2 % (94-97); ABG PCO2 45 mmHg (35-45); ABG PH 7.28 (7.35-7.45); ABG PO2 84 mmHg (83-108); ABG TCO2 22 mmol/L (19-24)
[2018-01-06] MEDS: MAGNESIUM SULFATE-D5W PMX 1 GM in DEXTROSE/WATER 1 100ML.BAG IVPB SCH ×2 (18:34→19:58)
[2018-01-06] MEDS: HYDROcodone/APAP 7.5-325MG 1 EACH TAB PO PRN (18:46)
[2018-01-06] MEDS ORDERED: INSULIN REGULAR 100 UNIT/ML VIAL IV STA (19:23)
[2018-01-06] MEDS ORDERED: DEXTROSE 50%-WATER 50 ML SYRINGE IVP STA (19:23)
[2018-01-06] MEDS: IPRATROPIUM-ALBUTEROL 3 ML NEB INHALATION SCH ×2 (19:27)
[2018-01-06 19:52] LABS: Glucose,Whole Blood 406 mg/dL (75-99)
[2018-01-06] MEDS: SODIUM CHLORIDE 0.9% 1,000 ML IV SCH (19:59)
[2018-01-06] MEDS: ATORVASTATIN 20 MG TAB PO SCH (20:05)
[2018-01-06] MEDS ORDERED: SODIUM CHLORIDE 0.9% 1,000 ML IV ONE (20:07)
--- NOTE | 2018-01-06 20:07 | P.PN ---
Progress Note - Text Progress Note Date: 01/06/18 patient was seen and examined, most recent 2D echo showed LVEF of 55-60% ( previousely he had LVEF of 20% s/p ICD.) currently he presented due ot chest pain and abd pain, now he reports being chest pain free, he was fouind to have MARGARITA and Acute recurrent pancreatitis, he denies any alcohol intake clinically on physical exam, he seems to be on the dry side, with clear lungs, no distended JVD, and no leg edema. Plan Acute pancreatits acute hyperkalemia due to MARGARITA and patient on aldactone and ACEi (both on hold now) acute Kidney injury most likely due to dehydration acute hyperglycemia without DKA , normal anion gap aggressive IVF hydration give 1 L bolus , and continue on NS 0.9% at 125cc/hr (patient has history of acute diastolic heart failure) , need close monitoring patient received Insulin SC at 5 pm , repeat blood sugar patient given bicarb at 1800, received kayexalate in the ED, now i will give him IV insulin with d50 to help lower his K repeat labs in 4 hours will continue close monitoring in the step down unit
[2018-01-06 20:51] LABS: Glucose,Whole Blood 325 mg/dL (75-99)
[2018-01-06 20:58] LABS: Calcium 8.1 mg/dL (8.4-10.2); Potassium 4.9 mmol/L (3.5-5.1)
[2018-01-06] MEDS ORDERED: FUROSEMIDE 10 MG/ML 4 ML VIAL IV SCH (21:00)
[2018-01-06 22:28] LABS: Glucose,Whole Blood 271 mg/dL (75-99)
[2018-01-06] MEDS: GABAPENTIN 400 MG CAP PO SCH (23:29)
[2018-01-06] MEDS: hydrALAZINE HCL 50 MG TAB PO SCH (23:29)
[2018-01-06] MEDS: HEPARIN SODIUM,PORCINE 5,000 UNIT/ML 1 ML VIAL SQ SCH (23:30)
[2018-01-07 06:03] LABS: Glucose,Whole Blood 75 mg/dL (75-99)
[2018-01-07 08:01] LABS: Glucose,Whole Blood 77 mg/dL (75-99)
[2018-01-07] MEDS ORDERED: IPRATROPIUM-ALBUTEROL 3 ML NEB ONE (08:15)
[2018-01-07] MEDS: IPRATROPIUM-ALBUTEROL 3 ML NEB INHALATION SCH ×3 (08:15→19:18)
[2018-01-07] MEDS ORDERED: ISOSORBIDE MONONITRATE ER 60 MG TAB.ER.24H PO SCH (09:00)
--- NOTE | 2018-01-07 09:57 | ECHOF ---
Referral Reason:chf MEASUREMENTS -------- HEIGHT: 170.2 cm WEIGHT: 102.1 kg BP: 101/56 RVIDd: 3.5 cm (< 3.3) IVSd: 1.3 cm (0.6 - 1.1) LVIDd: 5.4 cm (3.9 - 5.3) LVPWd: 1.3 cm (0.6 - 1.1) IVSs: 2.0 cm LVIDs: 3.0 cm LVPWs: 1.7 cm LA Diam: 4.6 cm (2.7 - 3.8) LAESV Index (A-L): 48.40 ml/m Ao Diam: 3.5 cm (2.0 - 3.7) AV Cusp: 1.6 cm (1.5 - 2.6) EPSS: 0.7 cm MV E [place]: 0.85 m/s MV DecT: 241 ms MV A [place]: 0.99 m/s MV E/A Ratio: 0.86 AV maxP.06 mmHg AV meanP.87 mmHg AR PHT: 719 ms RAP: 5.00 mmHg RVSP: 46.35 mmHg MV EF SLOPE: 43.51 mm/s (70 - 150) MV EXCURSION: 1.44 cm (> 18.000) FINDINGS -------- Sinus rhythm with extra systolic beats. This was a technically adequate study. The left ventricular size is normal. There is mild concentric left ventricular hypertrophy. Overa ll left ventricular systolic function is normal with, an EF between 55 - 60 %. The right ventricle is mildly enlarged. LA is severely dilated >40 ml/m2 The right atrium is normal in size. There is mild aortic valve sclerosis. There is mild aortic regurgitation. There is mild aortic st enosis present. The mitral valve is normal. Mild tricuspid regurgitation present. There is moderate pulmonary hypertension. The right ventric ular systolic pressure, as measured by Doppler, is 46.35mmHg. Trace/mild (physiologic) pulmonic regurgitation. The aortic root size is normal. Normal inferior vena cava with normal inspiratory collapse consistent with estimated right atrial pre ssure of 5 mmHg. There is no pericardial effusion. CONCLUSIONS -------- 1. Sinus rhythm with extra systolic beats. 2. This was a technically adequate study. 3. The left ventricular size is normal. 4. There is mild concentric left ventricular hypertrophy. 5. Overall left ventricular systolic function is normal with, an EF between 55 - 60 %. 6. The right ventricle is mildly enlarged. 7. LA is severely dilated >40 ml/m2 8. The right atrium is normal in size. 9. There is mild aortic valve sclerosis. 10. There is mild aortic regurgitation. 11. There is mild aortic stenosis present. 12. The mitral valve is normal. 13. Mild tricuspid regurgitation present. 14. There is moderate pulmonary hypertension. 15. The right ventricular systolic pressure, as measured by Doppler, is 46.35mmHg. 16. Trace/mild (physiologic) pulmonic regurgitation. 17. The aortic root size is normal. 18. Normal inferior vena cava with normal inspiratory collapse consistent with estimated right atrial pressure of 5 mmHg. 19. There is no pericardial effusion. INTELLECTUAL PROPERTY MANAGER: YOLI Alicea
[2018-01-07] MEDS: INSULIN ASPART 100 UNIT/ML 1 ML 10 ML VIAL SQ SCH ×4 (10:38→21:24)
--- NOTE | 2018-01-07 10:42 | XR ---
EXAMINATION TYPE: XR chest 1V DATE OF EXAM: 01/07/2018 COMPARISON: Prior chest x-ray 01/06/2018 HISTORY: Congestive heart failure TECHNIQUE: Single frontal view of the chest is obtained. FINDINGS: The heart is enlarged. Central vascularity and interstitium are increased. No evident pneu mothorax. Intracardiac defibrillator leads are stable. Generator is in left pectoral region. No evide nt pneumothorax. Patchy basilar density persists. IMPRESSION: Findings suggest pulmonary venous hypertension and interstitial edema. There may be basi lar pneumonia versus edema or atelectasis, difficult to exclude small effusion due to patient body menezes bitus. Follow-up suggested.
[2018-01-07 11:00] LABS: Appearance,Urine Clear (Clear); Bilirubin,Urine 1+ (Negative); Blood,Urine Negative (Negative); Color,Urine Yellow; Glucose,Urine (UA) 1+ (Negative); Ketones,Urine Negative (Negative); Leukocyte Esterase,Urine Negative (Negative); Nitrite,Urine Negative (Negative); Protein,Urine Negative (Negative); Specific Gravity,Urine 1.012 (1.001-1.035); Urobilinogen,Urine <2.0 mg/dL (<2.0)
--- NOTE | 2018-01-07 11:04 | P.CONS ---
History of Present Illness - Reason for Consult Consult date: 01/07/18 pancreatitis Requesting physician: Tanya Roy - History of Present Illness 72 male PMH ETOH abuse, chronic hepatitis C, alcohol pancreatitis in September 2017 admitted with chest upper abdominal pain electrolyte abnormalities; K+ 6.6, Magnesium 1.0. Patient is a poor historian. Consult requested for pancreatitis. HCV RNA detected in September 2017 genotype 1A maintained on Mavyret. Admission lipase 4295. Amylase 316. Tbili 2.8. AST 114. ALT 39. AP 174. Today pancreatic enzymes have improved; lipase 2480. Amylase 183. TB 4.0. AST 73. ALT 56. AP 133. Unsure if patient was drinking alcohol prior to admission he would not say but in September 2017 he was drinking 3-4 beers daily average 3-5 days a week. Abdominal imaging in September did not identify abnormalities of the gallbladder liver spleen or pancreas. CA 19-9 50.6 but can be mildly elevated in the setting of acute pancreatitis. AFP normal. Triglycerides 146. Creatinine 1.8 on admission presently 3.0. BUN 38-54. Received fluid boluses upon admission. CT abdomen this admission reported fullness near pancreatic head otherwise no appreciable abnormalities of GB, spleen or liver. No fever, chills, hematemesis, hematochezia or melena. Review of Systems Constitutional: Denies fever, chills, sweats, weight gain, or loss. Admitted with weakness. HEENT: Negative for migraines, blurred vision or loss, earaches, drainage, tinnitus, oral mucosal lesions, dysphagia, or odynophagia. Cardiac: Admitted with chest pain, arrhythmias, or palpitation. Respiratory: Negative for shortness of breath, hemoptysis, cough, or sputum production. Gastrointestinal: See HPI for pertinent findings. Genitourinary: Negative for hematuria, urgency, frequency, polyuria, dysuria, or penile discharge. Musculoskeletal: Negative for muscle aches, swelling, arthritis, and arthralgias. Neurologic: Negative for stroke or TIA. Endocrine: Negative for thyroid problems. Skin: Negative for rash or itching. 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 Last Myocardial Infarction Date:: 11/2013 History of Any Multi-Drug Resistant Organisms: None Reported Past Surgical History: Heart Catheterization, Pacemaker Additional Past Surgical History / Comment(s): PTCA 2010 in [place], CATARACTS TRAY EYES REMOVED. liver biopsy on 10-18-13, Past Anesthesia/Blood Transfusion Reactions: No Reported Reaction Type of Cardiac Device: Permanent Pacemaker Device Placement Date:: 2013? pt unsure Smoking Status: Never smoker - Past Family History Mother Family Medical History: Hypertension Sister(s) Family Medical History: Cancer Father History Unknown: Yes Medications and Allergies Home Medications Medication Instructions Recorded Confirmed Type Nitroglycerin Sl Tabs [Nitrostat] 0.4 mg SUBLINGUAL Q5M PRN 11/28/13 01/06/18 History Carvedilol 25 mg PO AC-BID 01/24/15 01/06/18 History Docusate [Colace] 100 mg PO HS PRN 06/07/15 01/06/18 History INSULIN LISPRO (humaLOG) [humaLOG] See Protocol SQ AC-TID 09/13/17 01/06/18 History Losartan [Cozaar] 12.5 mg PO DAILY 09/13/17 01/06/18 History Spironolactone [Aldactone] 25 mg PO DAILY 09/13/17 01/06/18 History Furosemide [Lasix] 40 mg PO BID@0900,1600 tab 09/23/17 01/06/18 Rx Isosorbide Mononitrate ER [Imdur] 60 mg PO DAILY tab.er.24h 09/23/17 01/06/18 Rx Pantoprazole [Protonix] 40 mg PO AC-BRKFST tablet. 09/23/17 01/06/18 Rx hydrALAZINE HCL [Apresoline] 100 mg PO TID tab 09/23/17 01/06/18 Rx Atorvastatin [Lipitor] 20 mg PO HS 01/06/18 01/06/18 History Gabapentin [Neurontin] 400 mg PO TID 01/06/18 01/06/18 History Glecaprevir/Pibrentasvir [Mavyret 3 tab PO DAILY 01/06/18 01/06/18 History 100-40 mg Tablet] HYDROcodone/APAP 7.5-325MG [[place] 1 tab PO Q6HR PRN 01/06/18 01/06/18 History 7.5-325] Insulin Detemir [Levemir] 35 unit SQ DAILY 01/06/18 01/06/18 History Magnesium Oxide [Mag-Ox] 400 mg PO DAILY 01/06/18 01/06/18 History Allergies Allergy/AdvReac Type Severity Reaction Status Date / Time No Known Allergies Allergy Verified 01/06/18 07:39 Physical Exam Vitals: Vital Signs Temp Pulse Pulse Resp BP BP Pulse Ox 01/06/18 23:56 65 18 01/06/18 23:15 97.4 F L 65 18 108/56 96 01/06/18 20:00 16 01/06/18 19:50 97.4 F L 65 16 128/63 96 01/06/18 19:38 80 01/06/18 19:29 78 01/06/18 16:06 96.8 F L 66 18 148/67 92 L 01/06/18 14:58 98.4 F 80 18 105/68 95 01/06/18 13:43 65 18 90/55 95 01/06/18 12:40 101/56 01/06/18 12:38 65 18 89/54 96 Intake and Output 01/06/18 01/07/18 01/07/18 22:59 06:59 14:59 Intake Total 300 1625 Output Total 260 Balance 300 1365 Intake: IV 1625 Sodium Chloride 0.9% 1, 625 000 ml @ 125 mls/hr IV . Q8H [facility] Rx#:[id number] Sodium Chloride 0.9% 1, 1000 000 ml @ 999 mls/hr IV . Q1H1M [facility] Rx#:[id number] Oral 300 Output: Post Void Residual 260 - Constitutional General appearance: average body habitus - EENT sclera dull Eyes: normal appearance - Respiratory Respiratory: bilateral: CTA - Cardiovascular Rhythm: regular Heart sounds: normal: S1, S2 - Gastrointestinal very mild midepigastric tenderness General gastrointestinal: soft Results CBC & Chem 7: 01/08/18 06:25 01/08/18 06:25 Labs: Abnormal Lab Results - Last 24 Hours (Table) 01/06/18 01/06/18 01/06/18 Range/Units 16:16 16:17 16:35 ABG pH (7.35-7.45) ABG O2 Saturation (94-97) % Sodium 134 L (137-145) mmol/L Potassium 6.6 H* (3.5-5.1) mmol/L Carbon Dioxide 21 L (22-30) mmol/L BUN 49 H (9-20) mg/dL Creatinine 2.40 H (0.66-1.25) mg/dL Glucose 531 H* (74-99) mg/dL POC Glucose (mg/dL) 502 H 469 H (75-99) mg/dL Plasma Lactic Acid Fermin (0.7-2.0) mmol/L Calcium (8.4-10.2) mg/dL Magnesium 1.4 L (1.6-2.3) mg/dL Total Bilirubin 4.0 H (0.2-1.3) mg/dL AST 129 H (17-59) U/L Alkaline Phosphatase 139 H (38-126) U/L Amylase 316 H* (30-110) U/L Lipase 4295 H (23-300) U/L Urine Glucose (UA) (Negative) Urine Bilirubin (Negative) 01/06/18 01/06/18 01/06/18 Range/Units 18:29 19:50 20:26 ABG pH 7.28 L (7.35-7.45) ABG O2 Saturation 97.2 H (94-97) % Sodium 135 L (137-145) mmol/L Potassium (3.5-5.1) mmol/L Carbon Dioxide 21 L (22-30) mmol/L BUN 52 H (9-20) mg/dL Creatinine 2.40 H (0.66-1.25) mg/dL Glucose 397 H (74-99) mg/dL POC Glucose (mg/dL) 406 H (75-99) mg/dL Plasma Lactic Acid Fermin (0.7-2.0) mmol/L Calcium 8.1 L (8.4-10.2) mg/dL Magnesium (1.6-2.3) mg/dL Total Bilirubin (0.2-1.3) mg/dL AST (17-59) U/L Alkaline Phosphatase (38-126) U/L Amylase (30-110) U/L Lipase (23-300) U/L Urine Glucose (UA) (Negative) Urine Bilirubin (Negative) 01/06/18 01/06/18 01/06/18 Range/Units 20:26 20:49 22:07 ABG pH (7.35-7.45) ABG O2 Saturation (94-97) % Sodium (137-145) mmol/L Potassium (3.5-5.1) mmol/L Carbon Dioxide (22-30) mmol/L BUN (9-20) mg/dL Creatinine (0.66-1.25) mg/dL Glucose (74-99) mg/dL POC Glucose (mg/dL) 325 H 271 H (75-99) mg/dL Plasma Lactic Acid Fermin 2.4 H* (0.7-2.0) mmol/L Calcium (8.4-10.2) mg/dL Magnesium (1.6-2.3) mg/dL Total Bilirubin (0.2-1.3) mg/dL AST (17-59) U/L Alkaline Phosphatase (38-126) U/L Amylase (30-110) U/L Lipase (23-300) U/L Urine Glucose (UA) (Negative) Urine Bilirubin (Negative) 01/07/18 Range/Units 06:00 ABG pH (7.35-7.45) ABG O2 Saturation (94-97) % Sodium (137-145) mmol/L Potassium (3.5-5.1) mmol/L Carbon Dioxide (22-30) mmol/L BUN (9-20) mg/dL Creatinine (0.66-1.25) mg/dL Glucose (74-99) mg/dL POC Glucose (mg/dL) (75-99) mg/dL Plasma Lactic Acid Fermin (0.7-2.0) mmol/L Calcium (8.4-10.2) mg/dL Magnesium (1.6-2.3) mg/dL Total Bilirubin (0.2-1.3) mg/dL AST (17-59) U/L Alkaline Phosphatase (38-126) U/L Amylase (30-110) U/L Lipase (23-300) U/L Urine Glucose (UA) 1+ H (Negative) Urine Bilirubin 1+ H (Negative) CT scan - abdomen: report reviewed (Dr. Crystal) Assessment and Plan Assessment: Impression: 1. Acute pancreatitis possible alcohol related possible alcohol hepatitis. 2. History of ETOH. History of chronic hepatitis C presently maintained on antiviral therapy. 3. History of pancreatitis last documented episode September 2017. 4. Acute kidney injury. Plan: 1. Clear liquids. IV hydration. US abdomen. 2. Daily CMP, lipase, amylase. 3. Will check hepatitis panel, GGT, AFP, and CA 19-9. 4. Will follow with you. Thank you for this kind referral and the opportunity to participate in the care of your patient. This consultation was discussed with Dr. Crystal. The impression and plan of care have been directed as dictated.
[2018-01-07 11:15] LABS: INR 1.1 (<1.2); Prothrombin Time 10.5 sec (9.0-12.0)
[2018-01-07 11:28] LABS: Albumin 3.2 g/dL (3.5-5.0); Calcium 8.3 mg/dL (8.4-10.2); Potassium 5.3 mmol/L (3.5-5.1); Total Protein 6.3 g/dL (6.3-8.2)
[2018-01-07 11:49] LABS: Glucose,Whole Blood 99 mg/dL (75-99)
[2018-01-07] MEDS: MAVYRET PO SCH (11:53)
[2018-01-07] MEDS: hydrALAZINE HCL 50 MG TAB PO SCH (11:57)
[2018-01-07] MEDS: HEPARIN SODIUM,PORCINE 5,000 UNIT/ML 1 ML VIAL SQ SCH ×3 (12:18→23:22)
[2018-01-07] MEDS: GABAPENTIN 400 MG CAP PO SCH ×3 (12:18→21:24)
[2018-01-07] MEDS: PANTOPRAZOLE 40 MG TABLET PO SCH (12:19)
[2018-01-07] MEDS: CARVEDILOL 12.5 MG TAB PO SCH ×2 (12:19→20:55)
[2018-01-07] MEDS: MAGNESIUM OXIDE 400 MG TAB PO SCH (12:20)
[2018-01-07] MEDS: SODIUM CHLORIDE 0.9% 1,000 ML IV SCH ×3 (12:44→21:28)
--- NOTE | 2018-01-07 13:55 | P.PN ---
Subjective Progress Note Date: 01/07/18 Principal diagnosis: CHF This is 72-year-old gentleman with known history of diabetes, hypertension, hyperlipidemia, COPD, congestive heart failure, history of EtOH abuse who presented to the hospital mainly with symptoms of generally not feeling well with associated vague abdominal and chest discomfort. Cardiology consultation was initially requested because of abnormal troponins. At the time of our consultation yesterday patient was chest pain-free and today denies any chest pain. They did perform a VQ scan which was low probability for pulmonary embolism. Patient had an echocardiogram with Doppler study performed in September of this year which revealed a normal left ventricular systolic function. Chest x-ray performed here suggested pulmonary venous hypertension and interstitial edema. There may be some basilar pneumonia versus edema or atelectasis, difficult to exclude small effusion. Patient was given a one-time dose of IV Lasix in the emergency room. At pressure this morning and with a heart rate in the 60s, 97% on 2 L of oxygen. Sodium 137, potassium 5.3, BUN 54, creatinine 3.08. Calcium 8.3, total bilirubin 4.0, AST 73, ALT 56, alk phos 133. Albumin 3.2, amylase 183 and lipase 2480. Objective - Vital Signs Vital signs: Vital Signs Temp 98.8 F 01/07/18 11:51 Pulse 60 01/07/18 11:51 Resp 20 01/07/18 11:51 BP 111/55 01/07/18 11:51 Pulse Ox 97 01/07/18 11:51 Intake & Output 01/06/18 01/07/18 01/07/18 18:59 06:59 18:59 Intake Total 300 1625 1100 Output Total 260 Balance 300 1365 1100 Intake: IV 1625 1000 Sodium Chloride 0.9% 1, 625 1000 000 ml @ 125 mls/hr IV . Q8H [facility] Rx#:[id number] Sodium Chloride 0.9% 1, 1000 000 ml @ 999 mls/hr IV . Q1H1M ONE Rx#:[id number] Oral 300 100 Output: Post Void Residual 260 - Exam Constitutional: Lethargic, briefly answers questions with soft toned voice and drifts back to sleep. Eyes:Anicteric sclerae, moist conjunctiva, no lid-lag, PERRLA, ENMT: Oropharynx clear, no erythema, exudates Neck: Supple, FROM, no masses, or JVD, No carotid bruits, No thyromegaly Lungs: Clear to auscultation, Clear to percussion, Normal respiratory effort, no accessory muscle use Cardiovascular: Heart regular in rate and rhythm, No murmurs, gallops, or rubs, No peripheral edema Abdominal: Soft, Nontender, no guarding, rebound or rigidity, Normoactive bowel sounds, No hepatomegaly, No splenomegaly, No palpable mass Skin: Normal temperature, tone, texture, turgor, no induration, No subcutaneous nodules, No rash, lesions, No ulcers Extremities: No digital cyanosis, No clubbing, Pedal pulses intact and symmetrical, Radial pulses intact and symmetrical, No calf tenderness Psychiatric: Alert and oriented to person, place and time, appropriate affect, intact judgement Neuro: Muscles Strength 5/5 in all 4 extremities, Sensation to light touch grossly present throughout, Cranial nerves II-XII grossly intact, no focal sensory deficits - Labs CBC & Chem 7: 01/06/18 06:35 01/07/18 10:45 Labs: Abnormal Lab Results - Last 24 Hours (Table) 01/06/18 01/06/18 01/06/18 Range/Units 16:16 16:17 16:35 ABG pH (7.35-7.45) ABG O2 Saturation (94-97) % Sodium 134 L (137-145) mmol/L Potassium 6.6 H* (3.5-5.1) mmol/L Carbon Dioxide 21 L (22-30) mmol/L BUN 49 H (9-20) mg/dL Creatinine 2.40 H (0.66-1.25) mg/dL Glucose 531 H* (74-99) mg/dL POC Glucose (mg/dL) 502 H 469 H (75-99) mg/dL Plasma Lactic Acid Fermin (0.7-2.0) mmol/L Calcium (8.4-10.2) mg/dL Magnesium 1.4 L (1.6-2.3) mg/dL Total Bilirubin 4.0 H (0.2-1.3) mg/dL AST 129 H (17-59) U/L Alkaline Phosphatase 139 H (38-126) U/L Albumin (3.5-5.0) g/dL Amylase 316 H* (30-110) U/L Lipase 4295 H (23-300) U/L Urine Glucose (UA) (Negative) Urine Bilirubin (Negative) 01/06/18 01/06/18 01/06/18 Range/Units 18:29 19:50 20:26 ABG pH 7.28 L (7.35-7.45) ABG O2 Saturation 97.2 H (94-97) % Sodium 135 L (137-145) mmol/L Potassium (3.5-5.1) mmol/L Carbon Dioxide 21 L (22-30) mmol/L BUN 52 H (9-20) mg/dL Creatinine 2.40 H (0.66-1.25) mg/dL Glucose 397 H (74-99) mg/dL POC Glucose (mg/dL) 406 H (75-99) mg/dL Plasma Lactic Acid Fermin (0.7-2.0) mmol/L Calcium 8.1 L (8.4-10.2) mg/dL Magnesium (1.6-2.3) mg/dL Total Bilirubin (0.2-1.3) mg/dL AST (17-59) U/L Alkaline Phosphatase (38-126) U/L Albumin (3.5-5.0) g/dL Amylase (30-110) U/L Lipase (23-300) U/L Urine Glucose (UA) (Negative) Urine Bilirubin (Negative) 01/06/18 01/06/18 01/06/18 Range/Units 20:26 20:49 22:07 ABG pH (7.35-7.45) ABG O2 Saturation (94-97) % Sodium (137-145) mmol/L Potassium (3.5-5.1) mmol/L Carbon Dioxide (22-30) mmol/L BUN (9-20) mg/dL Creatinine (0.66-1.25) mg/dL Glucose (74-99) mg/dL POC Glucose (mg/dL) 325 H 271 H (75-99) mg/dL Plasma Lactic Acid Fermin 2.4 H* (0.7-2.0) mmol/L Calcium (8.4-10.2) mg/dL Magnesium (1.6-2.3) mg/dL Total Bilirubin (0.2-1.3) mg/dL AST (17-59) U/L Alkaline Phosphatase (38-126) U/L Albumin (3.5-5.0) g/dL Amylase (30-110) U/L Lipase (23-300) U/L Urine Glucose (UA) (Negative) Urine Bilirubin (Negative) 01/07/18 01/07/18 Range/Units 06:00 10:45 ABG pH (7.35-7.45) ABG O2 Saturation (94-97) % Sodium (137-145) mmol/L Potassium 5.3 H (3.5-5.1) mmol/L Carbon Dioxide (22-30) mmol/L BUN 54 H (9-20) mg/dL Creatinine 3.08 H (0.66-1.25) mg/dL Glucose (74-99) mg/dL POC Glucose (mg/dL) (75-99) mg/dL Plasma Lactic Acid Fermin (0.7-2.0) mmol/L Calcium 8.3 L (8.4-10.2) mg/dL Magnesium (1.6-2.3) mg/dL Total Bilirubin 4.0 H (0.2-1.3) mg/dL AST 73 H (17-59) U/L Alkaline Phosphatase 133 H (38-126) U/L Albumin 3.2 L (3.5-5.0) g/dL Amylase 183 H (30-110) U/L Lipase 2480 H (23-300) U/L Urine Glucose (UA) 1+ H (Negative) Urine Bilirubin 1+ H (Negative) Assessment and Plan Plan: Assessment and plan #1 abdominal discomfort, patient had recent admission to the hospital in September of this year with acute pancreatitis, GI service on consultation. #2 diastolic congestive heart failure acute on chronic #3 hypertension #4 hyperlipidemia #5 diabetes #6 abnormal troponins, likely secondary to renal insufficiency Plan From cardiology's perspective, we'll recommend to continue current medications. Echocardiogram with Doppler study revealed a normal ejection fraction. LA severely dilated. We will continue to follow . DNP note has been reviewed, I agree with a documented findings and plan of care. Patient was seen and examined.
--- NOTE | 2018-01-07 15:22 | P.PN ---
Subjective Progress Note Date: 01/07/18 Principal diagnosis: Abdominal and chest pain. Patient denied any abdominal pain or chest pain today, no sob. No bm yet. Currently NPO. No fevers or chills. Objective - Vital Signs Vital signs: Vital Signs Temp 98.8 F 01/07/18 11:51 Pulse 68 01/07/18 13:02 Resp 20 01/07/18 11:51 BP 111/55 01/07/18 11:51 Pulse Ox 97 01/07/18 11:51 Intake & Output 01/06/18 01/07/18 01/07/18 18:59 06:59 18:59 Intake Total 300 1625 1780 Output Total 260 Balance 300 1365 1780 Intake: IV 1625 1000 Sodium Chloride 0.9% 1, 625 1000 000 ml @ 125 mls/hr IV . Q8H [facility] Rx#:[id number] Sodium Chloride 0.9% 1, 1000 000 ml @ 999 mls/hr IV . Q1H1M [facility] Rx#:[id number] Oral 300 780 Output: Post Void Residual 260 - Exam Constitutional: No acute distress, conversant, pleasant Eyes:Anicteric sclerae, moist conjunctiva, no lid-lag, PERRLA, ENMT: Oropharynx clear, no erythema, exudates Neck: Supple, FROM, no masses, or JVD, No carotid bruits, No thyromegaly Lungs: Clear to auscultation, Clear to percussion, Normal respiratory effort, no accessory muscle use Cardiovascular: Heart regular in rate and rhythm, No murmurs, gallops, or rubs, No peripheral edema Abdominal: Soft, Nontender, no guarding, rebound or rigidity, Normoactive bowel sounds, No hepatomegaly, No splenomegaly, No palpable mass Skin: Normal temperature, tone, texture, turgor, no induration, No subcutaneous nodules, No rash, lesions, No ulcers Extremities: No digital cyanosis, No clubbing, Pedal pulses intact and symmetrical, Radial pulses intact and symmetrical, No calf tenderness Psychiatric: Alert and oriented to person, place and time, appropriate affect, intact judgement Neuro: Muscles Strength 5/5 in all 4 extremities, Sensation to light touch grossly present throughout, Cranial nerves II-XII grossly intact, no focal sensory deficits - Labs CBC & Chem 7: 01/06/18 06:35 01/07/18 10:45 Labs: Abnormal Lab Results - Last 24 Hours (Table) 01/06/18 01/06/18 01/06/18 Range/Units 16:16 16:17 16:35 ABG pH (7.35-7.45) ABG O2 Saturation (94-97) % Sodium 134 L (137-145) mmol/L Potassium 6.6 H* (3.5-5.1) mmol/L Carbon Dioxide 21 L (22-30) mmol/L BUN 49 H (9-20) mg/dL Creatinine 2.40 H (0.66-1.25) mg/dL Glucose 531 H* (74-99) mg/dL POC Glucose (mg/dL) 502 H 469 H (75-99) mg/dL Plasma Lactic Acid Fermin (0.7-2.0) mmol/L Calcium (8.4-10.2) mg/dL Magnesium 1.4 L (1.6-2.3) mg/dL Total Bilirubin 4.0 H (0.2-1.3) mg/dL GGT (15-73) U/L AST 129 H (17-59) U/L Alkaline Phosphatase 139 H (38-126) U/L Albumin (3.5-5.0) g/dL Amylase 316 H* (30-110) U/L Lipase 4295 H (23-300) U/L Urine Glucose (UA) (Negative) Urine Bilirubin (Negative) 01/06/18 01/06/18 01/06/18 Range/Units 18:29 19:50 20:26 ABG pH 7.28 L (7.35-7.45) ABG O2 Saturation 97.2 H (94-97) % Sodium 135 L (137-145) mmol/L Potassium (3.5-5.1) mmol/L Carbon Dioxide 21 L (22-30) mmol/L BUN 52 H (9-20) mg/dL Creatinine 2.40 H (0.66-1.25) mg/dL Glucose 397 H (74-99) mg/dL POC Glucose (mg/dL) 406 H (75-99) mg/dL Plasma Lactic Acid Fermin (0.7-2.0) mmol/L Calcium 8.1 L (8.4-10.2) mg/dL Magnesium (1.6-2.3) mg/dL Total Bilirubin (0.2-1.3) mg/dL GGT (15-73) U/L AST (17-59) U/L Alkaline Phosphatase (38-126) U/L Albumin (3.5-5.0) g/dL Amylase (30-110) U/L Lipase (23-300) U/L Urine Glucose (UA) (Negative) Urine Bilirubin (Negative) 01/06/18 01/06/18 01/06/18 Range/Units 20:26 20:49 22:07 ABG pH (7.35-7.45) ABG O2 Saturation (94-97) % Sodium (137-145) mmol/L Potassium (3.5-5.1) mmol/L Carbon Dioxide (22-30) mmol/L BUN (9-20) mg/dL Creatinine (0.66-1.25) mg/dL Glucose (74-99) mg/dL POC Glucose (mg/dL) 325 H 271 H (75-99) mg/dL Plasma Lactic Acid Fermin 2.4 H* (0.7-2.0) mmol/L Calcium (8.4-10.2) mg/dL Magnesium (1.6-2.3) mg/dL Total Bilirubin (0.2-1.3) mg/dL GGT (15-73) U/L AST (17-59) U/L Alkaline Phosphatase (38-126) U/L Albumin (3.5-5.0) g/dL Amylase (30-110) U/L Lipase (23-300) U/L Urine Glucose (UA) (Negative) Urine Bilirubin (Negative) 01/07/18 01/07/18 01/07/18 Range/Units 06:00 10:45 10:45 ABG pH (7.35-7.45) ABG O2 Saturation (94-97) % Sodium (137-145) mmol/L Potassium 5.3 H (3.5-5.1) mmol/L Carbon Dioxide (22-30) mmol/L BUN 54 H (9-20) mg/dL Creatinine 3.08 H (0.66-1.25) mg/dL Glucose (74-99) mg/dL POC Glucose (mg/dL) (75-99) mg/dL Plasma Lactic Acid Fermin (0.7-2.0) mmol/L Calcium 8.3 L (8.4-10.2) mg/dL Magnesium (1.6-2.3) mg/dL Total Bilirubin 4.0 H (0.2-1.3) mg/dL GGT 708 H (15-73) U/L AST 73 H (17-59) U/L Alkaline Phosphatase 133 H (38-126) U/L Albumin 3.2 L (3.5-5.0) g/dL Amylase 183 H (30-110) U/L Lipase 2480 H (23-300) U/L Urine Glucose (UA) 1+ H (Negative) Urine Bilirubin 1+ H (Negative) Assessment and Plan Plan: Abdominal and chest pain likely acute pancreatitis Amylase, lipase, patient was recently discharged last September after an admission for acute pancreatitis Etiology unclear possibly ETOH related? Repeat labs in am IV fluids GI consult Elevated trops Likely non-specific, sec to above Echo checked, positive for moderate pulm hypertension, no motion abnormalities to suggest acute event. Continue Coreg, hold LUCINDA inhibitor because of renal failure Seen by cardio Acute renal failure with hyperkalemia Check UA Hold LUCINDA inhibitor Recheck electrolytes and renal function now, patient was given 1 dose of Kayexalate in the ER IV fluids as above Nephro consult. Diabetes mellitus type 2 with hyperglycemia Resume home insulin regimen Sliding scale insulin moderate dose Blood sugar check CBC and at bedtime Sugars currently controlled Essential hypertension, COPD, hyperlipidemia, osteoarthritis Stable Resume home meds DVT prophylaxis Heparin subcu
[2018-01-07 16:46] LABS: Calcium 8.1 mg/dL (8.4-10.2); Potassium 5.5 mmol/L (3.5-5.1)
[2018-01-07] MEDS ORDERED: SODIUM POLYSTYRENE SULFONATE 15 GM/60 ML BOTTLE PO STA (17:04)
[2018-01-07 17:10] LABS: Glucose,Whole Blood 181 mg/dL (75-99)
[2018-01-07] MEDS: INSULIN DETEMIR 100 UNIT/ML 10 ML VIAL SQ SCH (17:35)
[2018-01-07] MEDS ORDERED: FUROSEMIDE 10 MG/ML 4 ML VIAL IV STA (17:57)
[2018-01-07 21:11] LABS: Glucose,Whole Blood 194 mg/dL (75-99)
[2018-01-07 21:12] LABS: Hepatitis A Antibody IgM Non-Reactive (Non-Reactive); Hepatitis B Core IgM Non-Reactive (Non-Reactive)
[2018-01-07] MEDS: ATORVASTATIN 20 MG TAB PO SCH (21:24)
[2018-01-08] MEDS: SODIUM CHLORIDE 0.9% 1,000 ML IV SCH ×3 (04:00→23:01)
[2018-01-08 05:57] LABS: Glucose,Whole Blood 129 mg/dL (75-99)
[2018-01-08] MEDS: INSULIN ASPART 100 UNIT/ML 1 ML 10 ML VIAL SQ SCH ×4 (05:58→21:30)
[2018-01-08 06:35] LABS: HCT 36.4 % (39.0-53.0); HGB 11.3 gm/dL (13.0-17.5); Hypochromasia Moderate; MCH 28.7 pg (25.0-35.0); MCV 92.6 fL (80.0-100.0); Mean Platelet Volume 9.7; RBC 3.93 m/uL (4.30-5.90); RDW 13.6 % (11.5-15.5); WBC 8.9 k/uL (3.8-10.6)
[2018-01-08] MEDS ORDERED: FUROSEMIDE 10 MG/ML 10 ML VIAL IV STA (06:48)
[2018-01-08 06:54] LABS: Calcium 8.2 mg/dL (8.4-10.2); Total Bilirubin 3.5 mg/dL (0.2-1.3)
[2018-01-08 07:09] LABS: Albumin 3.1 g/dL (3.5-5.0); Potassium 5.6 mmol/L (3.5-5.1); Total Protein 6.5 g/dL (6.3-8.2)
[2018-01-08] MEDS: IPRATROPIUM-ALBUTEROL 3 ML NEB INHALATION SCH ×3 (08:52→19:14)
[2018-01-08] MEDS ORDERED: DEXTROSE 50%-WATER 50 ML SYRINGE IVP STA (08:57)
[2018-01-08] MEDS ORDERED: INSULIN REGULAR 100 UNIT/ML VIAL IV ONE (08:57)
[2018-01-08] MEDS: MAVYRET PO SCH (09:30)
[2018-01-08] MEDS: GABAPENTIN 400 MG CAP PO SCH ×3 (09:30→21:30)
[2018-01-08] MEDS: PANTOPRAZOLE 40 MG TABLET PO SCH (09:30)
[2018-01-08] MEDS: MAGNESIUM OXIDE 400 MG TAB PO SCH (09:30)
[2018-01-08] MEDS: INSULIN DETEMIR 100 UNIT/ML 10 ML VIAL SQ SCH (09:31)
[2018-01-08] MEDS: HEPARIN SODIUM,PORCINE 5,000 UNIT/ML 1 ML VIAL SQ SCH ×3 (09:31→23:01)
--- NOTE | 2018-01-08 09:51 | P.PN ---
Subjective Progress Note Date: 01/08/18 Principal diagnosis: Pancreatitis Admitted with acute kidney injury, abdominal chest pain elevated pancreatic liver enzymes consistent with acute pancreatitis with a history of EtOH abuse. White count 8.9. Hemoglobin 11.3. BUN 58. Creatinine 3.9. GGT 708. Total bilirubin improving 3.5. Transaminases mildly elevated AST 73. ALT 52. AP 134. CA-19-9 50.8 unchanged from 3 months ago. Lipase pending. Afebrile. Denies abdominal pain. Objective - Vital Signs Vital signs: Vital Signs Temp 97.2 F L 01/07/18 15:35 Pulse 75 01/08/18 09:01 Resp 20 01/08/18 04:00 BP 106/59 01/08/18 04:00 Pulse Ox 95 01/08/18 08:51 Intake & Output 01/07/18 01/08/18 01/08/18 18:59 06:59 18:59 Intake Total 3710 1000 Output Total 150 Balance 3560 1000 Weight 103.1 kg Intake: IV 2000 1000 Sodium Chloride 0.9% 1, 2000 1000 000 ml @ 125 mls/hr IV . Q8H [facility] Rx#:[id number] Oral 1710 Output: Urine 150 Other: Voiding Method Urinal # Voids 0 - Exam General appearance: The patient is alert, oriented, in no acute distress. HET: Head is normocephalic and atraumatic. Pupils are equal and reactive. Oropharynx is clear without lesions. Neck: Supple without lymphadenopathy. Trachea midline. Heart: S1 S2. Regular rate and rhythm. Lungs: No crackles or wheezes are heard. Abdomen: Soft, nontender, nondistended with bowel sounds. No peritoneal signs. No palpable organomegaly or masses. Extremities: Normal skin color and turgor. No cyanosis, rash, ulceration, clubbing, or edema. Radial and pedal pulses are 2/4 bilaterally. Neurological: No focal deficits. Strength and sensation are grossly intact. - Labs CBC & Chem 7: 01/08/18 06:25 01/08/18 06:25 Labs: Abnormal Lab Results - Last 24 Hours (Table) 01/07/18 01/07/18 01/07/18 Range/Units 06:00 10:45 10:45 RBC (4.30-5.90) m/uL Hgb (13.0-17.5) gm/dL Hct (39.0-53.0) % Sodium (137-145) mmol/L Potassium 5.3 H (3.5-5.1) mmol/L Carbon Dioxide (22-30) mmol/L BUN 54 H (9-20) mg/dL Creatinine 3.08 H (0.66-1.25) mg/dL Glucose (74-99) mg/dL POC Glucose (mg/dL) (75-99) mg/dL Calcium 8.3 L (8.4-10.2) mg/dL Total Bilirubin 4.0 H (0.2-1.3) mg/dL GGT 708 H (15-73) U/L AST 73 H (17-59) U/L Alkaline Phosphatase 133 H (38-126) U/L Albumin 3.2 L (3.5-5.0) g/dL Amylase 183 H (30-110) U/L Lipase 2480 H (23-300) U/L CA 19-9 Antigen (0.0-34.9) U/mL Urine Glucose (UA) 1+ H (Negative) Urine Bilirubin 1+ H (Negative) Hep C IgG Ab (Non-Reactive) 01/07/18 01/07/18 01/07/18 Range/Units 10:45 10:45 16:05 RBC (4.30-5.90) m/uL Hgb (13.0-17.5) gm/dL Hct (39.0-53.0) % Sodium 136 L (137-145) mmol/L Potassium 5.5 H (3.5-5.1) mmol/L Carbon Dioxide 21 L (22-30) mmol/L BUN 56 H (9-20) mg/dL Creatinine 3.10 H (0.66-1.25) mg/dL Glucose 184 H (74-99) mg/dL POC Glucose (mg/dL) (75-99) mg/dL Calcium 8.1 L (8.4-10.2) mg/dL Total Bilirubin (0.2-1.3) mg/dL GGT (15-73) U/L AST (17-59) U/L Alkaline Phosphatase (38-126) U/L Albumin (3.5-5.0) g/dL Amylase (30-110) U/L Lipase (23-300) U/L CA 19-9 Antigen 50.8 H (0.0-34.9) U/mL Urine Glucose (UA) (Negative) Urine Bilirubin (Negative) Hep C IgG Ab Reactive H (Non-Reactive) 01/07/18 01/07/18 01/08/18 Range/Units 16:50 21:09 05:56 RBC (4.30-5.90) m/uL Hgb (13.0-17.5) gm/dL Hct (39.0-53.0) % Sodium (137-145) mmol/L Potassium (3.5-5.1) mmol/L Carbon Dioxide (22-30) mmol/L BUN (9-20) mg/dL Creatinine (0.66-1.25) mg/dL Glucose (74-99) mg/dL POC Glucose (mg/dL) 181 H 194 H 129 H (75-99) mg/dL Calcium (8.4-10.2) mg/dL Total Bilirubin (0.2-1.3) mg/dL GGT (15-73) U/L AST (17-59) U/L Alkaline Phosphatase (38-126) U/L Albumin (3.5-5.0) g/dL Amylase (30-110) U/L Lipase (23-300) U/L CA 19-9 Antigen (0.0-34.9) U/mL Urine Glucose (UA) (Negative) Urine Bilirubin (Negative) Hep C IgG Ab (Non-Reactive) 01/08/18 01/08/18 Range/Units 06:25 06:25 RBC 3.93 L (4.30-5.90) m/uL Hgb 11.3 L (13.0-17.5) gm/dL Hct 36.4 L (39.0-53.0) % Sodium 134 L (137-145) mmol/L Potassium 5.6 H (3.5-5.1) mmol/L Carbon Dioxide 19 L (22-30) mmol/L BUN 58 H (9-20) mg/dL Creatinine 3.90 H (0.66-1.25) mg/dL Glucose 136 H (74-99) mg/dL POC Glucose (mg/dL) (75-99) mg/dL Calcium 8.2 L (8.4-10.2) mg/dL Total Bilirubin 3.5 H (0.2-1.3) mg/dL GGT (15-73) U/L AST 73 H (17-59) U/L Alkaline Phosphatase 134 H (38-126) U/L Albumin 3.1 L (3.5-5.0) g/dL Amylase (30-110) U/L Lipase (23-300) U/L CA 19-9 Antigen (0.0-34.9) U/mL Urine Glucose (UA) (Negative) Urine Bilirubin (Negative) Hep C IgG Ab (Non-Reactive) Microbiology - Last 24 Hours (Table) 01/07/18 05:30 Urine Culture - Preliminary Urine,Voided Assessment and Plan Assessment: Impression: 1. Acute pancreatitis possible alcohol related possible alcohol hepatitis. Elevated GGT. 2. History of ETOH. 3. History of pancreatitis last documented episode September 2017. 4. Acute kidney injury. 5. Positive hepatitis C IgG antibody. Plan: 1. Clear liquids. IV hydration. Nephrology consult. US abdomen pending. 2. Daily CMP, lipase, amylase. 3. Quantitative HCV to assess effectiveness of current antiviral therapy. 4. Will follow with you. Assessment and plan a care discussed with Dr. Crystal
[2018-01-08 09:55] LABS: Amylase 193 U/L (30-110)
[2018-01-08 10:08] LABS: Lipase 2949 U/L (23-300)
--- NOTE | 2018-01-08 11:11 | P.PN ---
Subjective Progress Note Date: 01/08/18 Principal diagnosis: Abdominal and chest pain. Patient is feeling okay now,. He denied having any pain in the chest or abdomen. Objective - Vital Signs Vital signs: Vital Signs Temp 97.7 F 01/08/18 08:00 Pulse 75 01/08/18 09:01 Resp 18 01/08/18 08:00 BP 122/57 01/08/18 08:00 Pulse Ox 95 01/08/18 08:51 Intake & Output 01/07/18 01/08/18 01/08/18 18:59 06:59 18:59 Intake Total 3710 1000 Output Total 150 Balance 3560 1000 Weight 103.1 kg Intake: IV 2000 1000 Sodium Chloride 0.9% 1, 2000 1000 000 ml @ 125 mls/hr IV . Q8H [facility] Rx#:[id number] Oral 1710 Output: Urine 150 Other: Voiding Method Urinal Urinal # Voids 0 - Exam Constitutional: No acute distress, conversant, pleasant Eyes: Positive for edema around the eyelids and eyes. Anicteric sclerae, moist conjunctiva, no lid-lag, PERRLA, ENMT: Oropharynx clear, no erythema, exudates Neck: Supple, FROM, no masses, or JVD, No carotid bruits, No thyromegaly Lungs: Clear to auscultation, Clear to percussion, Normal respiratory effort, no accessory muscle use Cardiovascular: Heart regular in rate and rhythm, No murmurs, gallops, or rubs, 1+ peripheral edema Abdominal: Soft, Nontender, no guarding, rebound or rigidity, Normoactive bowel sounds, No hepatomegaly, No splenomegaly, No palpable mass Skin: Normal temperature, tone, texture, turgor, no induration, No subcutaneous nodules, No rash, lesions, No ulcers Extremities: No digital cyanosis, No clubbing, Pedal pulses intact and symmetrical, Radial pulses intact and symmetrical, No calf tenderness Psychiatric: Alert and oriented to person, place and time, appropriate affect, intact judgement Neuro: Muscles Strength 5/5 in all 4 extremities, Sensation to light touch grossly present throughout, Cranial nerves II-XII grossly intact, no focal sensory deficits - Labs CBC & Chem 7: 01/08/18 06:25 01/08/18 06:25 Labs: Abnormal Lab Results - Last 24 Hours (Table) 01/07/18 01/07/18 01/07/18 Range/Units 10:45 10:45 10:45 RBC (4.30-5.90) m/uL Hgb (13.0-17.5) gm/dL Hct (39.0-53.0) % Sodium (137-145) mmol/L Potassium 5.3 H (3.5-5.1) mmol/L Carbon Dioxide (22-30) mmol/L BUN 54 H (9-20) mg/dL Creatinine 3.08 H (0.66-1.25) mg/dL Glucose (74-99) mg/dL POC Glucose (mg/dL) (75-99) mg/dL Calcium 8.3 L (8.4-10.2) mg/dL Total Bilirubin 4.0 H (0.2-1.3) mg/dL GGT 708 H (15-73) U/L AST 73 H (17-59) U/L Alkaline Phosphatase 133 H (38-126) U/L Albumin 3.2 L (3.5-5.0) g/dL Amylase 183 H (30-110) U/L Lipase 2480 H (23-300) U/L CA 19-9 Antigen (0.0-34.9) U/mL Hep C IgG Ab Reactive H (Non-Reactive) 01/07/18 01/07/18 01/07/18 Range/Units 10:45 16:05 16:50 RBC (4.30-5.90) m/uL Hgb (13.0-17.5) gm/dL Hct (39.0-53.0) % Sodium 136 L (137-145) mmol/L Potassium 5.5 H (3.5-5.1) mmol/L Carbon Dioxide 21 L (22-30) mmol/L BUN 56 H (9-20) mg/dL Creatinine 3.10 H (0.66-1.25) mg/dL Glucose 184 H (74-99) mg/dL POC Glucose (mg/dL) 181 H (75-99) mg/dL Calcium 8.1 L (8.4-10.2) mg/dL Total Bilirubin (0.2-1.3) mg/dL GGT (15-73) U/L AST (17-59) U/L Alkaline Phosphatase (38-126) U/L Albumin (3.5-5.0) g/dL Amylase (30-110) U/L Lipase (23-300) U/L CA 19-9 Antigen 50.8 H (0.0-34.9) U/mL Hep C IgG Ab (Non-Reactive) 01/07/18 01/08/18 01/08/18 Range/Units 21:09 05:56 06:25 RBC 3.93 L (4.30-5.90) m/uL Hgb 11.3 L (13.0-17.5) gm/dL Hct 36.4 L (39.0-53.0) % Sodium (137-145) mmol/L Potassium (3.5-5.1) mmol/L Carbon Dioxide (22-30) mmol/L BUN (9-20) mg/dL Creatinine (0.66-1.25) mg/dL Glucose (74-99) mg/dL POC Glucose (mg/dL) 194 H 129 H (75-99) mg/dL Calcium (8.4-10.2) mg/dL Total Bilirubin (0.2-1.3) mg/dL GGT (15-73) U/L AST (17-59) U/L Alkaline Phosphatase (38-126) U/L Albumin (3.5-5.0) g/dL Amylase (30-110) U/L Lipase (23-300) U/L CA 19-9 Antigen (0.0-34.9) U/mL Hep C IgG Ab (Non-Reactive) 01/08/18 01/08/18 Range/Units 06:25 06:25 RBC (4.30-5.90) m/uL Hgb (13.0-17.5) gm/dL Hct (39.0-53.0) % Sodium 134 L (137-145) mmol/L Potassium 5.6 H (3.5-5.1) mmol/L Carbon Dioxide 19 L (22-30) mmol/L BUN 58 H (9-20) mg/dL Creatinine 3.90 H (0.66-1.25) mg/dL Glucose 136 H (74-99) mg/dL POC Glucose (mg/dL) (75-99) mg/dL Calcium 8.2 L (8.4-10.2) mg/dL Total Bilirubin 3.5 H (0.2-1.3) mg/dL GGT (15-73) U/L AST 73 H (17-59) U/L Alkaline Phosphatase 134 H (38-126) U/L Albumin 3.1 L (3.5-5.0) g/dL Amylase 193 H (30-110) U/L Lipase 2949 H (23-300) U/L CA 19-9 Antigen (0.0-34.9) U/mL Hep C IgG Ab (Non-Reactive) Microbiology - Last 24 Hours (Table) 01/07/18 05:30 Urine Culture - Preliminary Urine,Voided Assessment and Plan Plan: Abdominal and chest pain likely acute pancreatitis Amylase, lipase, patient was recently discharged last September after an admission for acute pancreatitis Etiology unclear possibly ETOH related? Ultrasound of the abdomen pending Repeat labs in am IV fluids GI following Elevated trops Likely non-specific, sec to above Echo checked, positive for moderate pulm hypertension, no motion abnormalities to suggest acute event. Continue Coreg, hold LUCINDA inhibitor because of renal failure Seen by cardio Acute renal failure with hyperkalemia UA checked Hold LUCINDA inhibitor Recheck electrolytes and renal function now, patient was given 1 dose of Kayexalate in the ER IV fluids as above D/W Nephro. Lasix, Kayexalate, insulin with D50 for hyperkalemia. Might need dialysis if urine output didn't waste picker in response to Lasix and IV fluids Diabetes mellitus type 2 with hyperglycemia Resume home insulin regimen Sliding scale insulin moderate dose Blood sugar check CBC and at bedtime Sugars currently controlled Essential hypertension, COPD, hyperlipidemia, osteoarthritis Stable Resume home meds DVT prophylaxis Heparin subcu Discussed with nurse
--- NOTE | 2018-01-08 11:35 | US ---
EXAMINATION TYPE: US abdomen limited DATE OF EXAM: 01/08/2018 COMPARISON: 09/24/2013 CLINICAL HISTORY: pancreatitis elevated liver enzymes. EXAM MEASUREMENTS: Liver Length: 16.2 cm Gallbladder Wall: 0.2 cm CBD: 0.5 cm Right Kidney: 12.1 x 6.6 x 6.7 cm There is no ascites. Pancreas: Obscured by bowel gas Liver: wnl Gallbladder: No stones seen Evidence for sonographic Henson's sign: no CBD: wnl Right Kidney: No hydronephrosis or masses seen Patient body habitus is such that intercostal images of liver provide best views. IMPRESSION: Exam is somewhat limited.
[2018-01-08 11:58] LABS: Glucose,Whole Blood 156 mg/dL (75-99)
--- NOTE | 2018-01-08 14:06 | P.PN ---
Subjective Progress Note Date: 01/08/18 Principal diagnosis: CHF This is 72-year-old gentleman with known history of diabetes, hypertension, hyperlipidemia, COPD, congestive heart failure, history of EtOH abuse who presented to the hospital mainly with symptoms of generally not feeling well with associated vague abdominal and chest discomfort. Cardiology consultation was initially requested because of abnormal troponins. At the time of our consultation yesterday patient was chest pain-free and today denies any chest pain. They did perform a VQ scan which was low probability for pulmonary embolism. Patient had an echocardiogram with Doppler study performed in September of this year which revealed a normal left ventricular systolic function. Chest x-ray performed here suggested pulmonary venous hypertension and interstitial edema. There may be some basilar pneumonia versus edema or atelectasis, difficult to exclude small effusion. Patient was given a one-time dose of IV Lasix in the emergency room. At pressure this morning and with a heart rate in the 60s, 97% on 2 L of oxygen. Sodium 137, potassium 5.3, BUN 54, creatinine 3.08. Calcium 8.3, total bilirubin 4.0, AST 73, ALT 56, alk phos 133. Albumin 3.2, amylase 183 and lipase 2480. 01/08/2018 Patient seen and examined today, lying flat in bed with no difficulty breathing. Denies any chest discomfort, complaining of mild abdominal discomfort off and on, abdominal ultrasound ordered today. Blood pressure 100/ 60 with a heart rate in the 70s. Hemoglobin 11.3, platelet count not calculated. Sodium 134, potassium 5.6, BUN 58, creatinine 3.9. AST 73, ALT 52 , alk phos 134, albumin 3.1, amylase 193, and lipase 2949. Normal ejection fraction, on oral diuretics. Objective - Vital Signs Vital signs: Vital Signs Temp 97.3 F L 01/08/18 12:00 Pulse 71 01/08/18 13:31 Resp 18 01/08/18 12:00 BP 101/56 01/08/18 12:00 Pulse Ox 98 01/08/18 12:00 Intake & Output 01/07/18 01/08/18 01/08/18 18:59 06:59 18:59 Intake Total 3710 1000 480 Output Total 150 Balance 3560 1000 480 Weight 103.1 kg Intake: IV 2000 1000 480 Sodium Chloride 0.9% 1999 1000 000 ml @ 125 mls/hr IV . Q8H [facility] Rx#:[id number] Sodium Chloride 0.9% 1, 480 000 ml @ 60 mls/hr IV . [id number] [facility] Rx#:[id number] Oral 1710 Output: Urine 150 Other: Voiding Method Urinal Urinal # Voids 0 - Exam Constitutional: Lethargic, briefly answers questions with soft toned voice and drifts back to sleep. Eyes:Anicteric sclerae, moist conjunctiva, no lid-lag, PERRLA, ENMT: Oropharynx clear, no erythema, exudates Neck: Supple, FROM, no masses, or JVD, No carotid bruits, No thyromegaly Lungs: Clear to auscultation, Clear to percussion, Normal respiratory effort, no accessory muscle use Cardiovascular: Heart regular in rate and rhythm, No murmurs, gallops, or rubs, No peripheral edema Abdominal: Soft, Nontender, no guarding, rebound or rigidity, Normoactive bowel sounds, No hepatomegaly, No splenomegaly, No palpable mass Skin: Normal temperature, tone, texture, turgor, no induration, No subcutaneous nodules, No rash, lesions, No ulcers Extremities: No digital cyanosis, No clubbing, Pedal pulses intact and symmetrical, Radial pulses intact and symmetrical, No calf tenderness Psychiatric: Alert and oriented to person, place and time, appropriate affect, intact judgement Neuro: Muscles Strength 5/5 in all 4 extremities, Sensation to light touch grossly present throughout, Cranial nerves II-XII grossly intact, no focal sensory deficits - Labs CBC & Chem 7: 01/08/18 06:25 01/08/18 06:25 Labs: Abnormal Lab Results - Last 24 Hours (Table) 01/07/18 01/07/18 01/07/18 Range/Units 10:45 10:45 10:45 RBC (4.30-5.90) m/uL Hgb (13.0-17.5) gm/dL Hct (39.0-53.0) % Sodium (137-145) mmol/L Potassium (3.5-5.1) mmol/L Carbon Dioxide (22-30) mmol/L BUN (9-20) mg/dL Creatinine (0.66-1.25) mg/dL Glucose (74-99) mg/dL POC Glucose (mg/dL) (75-99) mg/dL Calcium (8.4-10.2) mg/dL Total Bilirubin (0.2-1.3) mg/dL GGT 708 H (15-73) U/L AST (17-59) U/L Alkaline Phosphatase (38-126) U/L Albumin (3.5-5.0) g/dL Amylase (30-110) U/L Lipase (23-300) U/L CA 19-9 Antigen 50.8 H (0.0-34.9) U/mL Hep C IgG Ab Reactive H (Non-Reactive) 01/07/18 01/07/18 01/07/18 Range/Units 16:05 16:50 21:09 RBC (4.30-5.90) m/uL Hgb (13.0-17.5) gm/dL Hct (39.0-53.0) % Sodium 136 L (137-145) mmol/L Potassium 5.5 H (3.5-5.1) mmol/L Carbon Dioxide 21 L (22-30) mmol/L BUN 56 H (9-20) mg/dL Creatinine 3.10 H (0.66-1.25) mg/dL Glucose 184 H (74-99) mg/dL POC Glucose (mg/dL) 181 H 194 H (75-99) mg/dL Calcium 8.1 L (8.4-10.2) mg/dL Total Bilirubin (0.2-1.3) mg/dL GGT (15-73) U/L AST (17-59) U/L Alkaline Phosphatase (38-126) U/L Albumin (3.5-5.0) g/dL Amylase (30-110) U/L Lipase (23-300) U/L CA 19-9 Antigen (0.0-34.9) U/mL Hep C IgG Ab (Non-Reactive) 01/08/18 01/08/18 01/08/18 Range/Units 05:56 06:25 06:25 RBC 3.93 L (4.30-5.90) m/uL Hgb 11.3 L (13.0-17.5) gm/dL Hct 36.4 L (39.0-53.0) % Sodium 134 L (137-145) mmol/L Potassium 5.6 H (3.5-5.1) mmol/L Carbon Dioxide 19 L (22-30) mmol/L BUN 58 H (9-20) mg/dL Creatinine 3.90 H (0.66-1.25) mg/dL Glucose 136 H (74-99) mg/dL POC Glucose (mg/dL) 129 H (75-99) mg/dL Calcium 8.2 L (8.4-10.2) mg/dL Total Bilirubin 3.5 H (0.2-1.3) mg/dL GGT (15-73) U/L AST 73 H (17-59) U/L Alkaline Phosphatase 134 H (38-126) U/L Albumin 3.1 L (3.5-5.0) g/dL Amylase (30-110) U/L Lipase (23-300) U/L CA 19-9 Antigen (0.0-34.9) U/mL Hep C IgG Ab (Non-Reactive) 01/08/18 01/08/18 Range/Units 06:25 11:54 RBC (4.30-5.90) m/uL Hgb (13.0-17.5) gm/dL Hct (39.0-53.0) % Sodium (137-145) mmol/L Potassium (3.5-5.1) mmol/L Carbon Dioxide (22-30) mmol/L BUN (9-20) mg/dL Creatinine (0.66-1.25) mg/dL Glucose (74-99) mg/dL POC Glucose (mg/dL) 156 H (75-99) mg/dL Calcium (8.4-10.2) mg/dL Total Bilirubin (0.2-1.3) mg/dL GGT (15-73) U/L AST (17-59) U/L Alkaline Phosphatase (38-126) U/L Albumin (3.5-5.0) g/dL Amylase 193 H (30-110) U/L Lipase 2949 H (23-300) U/L CA 19-9 Antigen (0.0-34.9) U/mL Hep C IgG Ab (Non-Reactive) Microbiology - Last 24 Hours (Table) 01/07/18 05:30 Urine Culture - Preliminary Urine,Voided Assessment and Plan Plan: Assessment and plan #1 abdominal discomfort, patient had recent admission to the hospital in September of this year with acute pancreatitis, GI service on consultation. #2 diastolic congestive heart failure acute on chronic #3 hypertension #4 hyperlipidemia #5 diabetes #6 abnormal troponins, likely secondary to renal insufficiency Plan From cardiology's perspective, we'll recommend to continue current medications. Echocardiogram with Doppler study revealed a normal ejection fraction. LA severely dilated. We will follow now on an as-needed basis only, please don't hesitate to call with any questions. DNP note has been reviewed, I agree with a documented findings and plan of care. Patient was seen and examined.
[2018-01-08] MEDS: FUROSEMIDE 250 MG in SODIUM CHLORIDE 0.9% 225 ML IVP SCH (14:50)
--- NOTE | 2018-01-08 16:54 | CONS ---
CONSULTATION REASON FOR CONSULTATION: Renal failure. PRESENT ILLNESS: Patient is a 72-year-old male who was admitted to the hospital on 01/06/2018 with complaints of chest pain and abdominal pain. His creatinine was 1.85 on initial admission. It has gone up to 3.9 today. The serum creatinine was as low as 1.15 and 1.01 in September of 2017. The patient's blood pressure has been low with systolic around 106-107 mmHg. The patient has not received any IV contrast. At home he was on Cozaar, which is currently on hold. The patient has also been hyperkalemic, serum potassium was as high as 6.6 and is now seeing about 5.5 from 5.6. The patient has had low urine output with only about 150 mL overnight. There was no urine retention noted on bladder scan. This morning patient states he is feeling short of breath. He denies any chest pain. He has some abdominal pain. His lipase level is 2949, which is down from 4295 on initial admission. An echocardiogram was done this admission which showed ejection fraction 50-55%. The left atrium was severely dilated. PAST MEDICAL HISTORY: Previous episode of acute kidney injury in September with serum creatinine as high as 2.1 mg/dL. Previously it had been 3.7 in May of 2016. The patient's renal function improved significantly on his last admission. He has been oliguric and he turned around with initiation of Lasix drip. Blood pressure is currently on the lower side. I will hold off on any LUCINDA inhibitors and angiotensin receptor blockers. He has been given a dose of IV Lasix this morning and if he does not respond I will start him on Lasix drip. The ejection fraction is not low and therefore no real indication for dobutamine at this time. IMPRESSION: 1. Acute pancreatitis. The patient had an abdominal CT which did not reveal any duct dilatation in the pancreas. Surgery is on consult. 2. Hyperkalemia associated with acute kidney injury. 3. Diabetes type 2. Maintained on insulin. PLAN: 1. Hep-Lock IV fluids. Start Lasix drip if the patient does not respond to the IV push Lasix. 2. Continue to avoid LUCINDA inhibitors and angiotensin receptor blockers. We will try to avoid hypotension as well and repeat labs in a.m. 3. If the patient does not respond and urine output is not improved, he will need to be dialyzed. 4. Thank you for this consultation. We will continue to follow the patient with you during his hospitalization. VI / DERRICKN: [id number] /
[2018-01-08 16:59] LABS: Glucose,Whole Blood 119 mg/dL (75-99)
[2018-01-08] MEDS ORDERED: DEXTROSE/WATER 1 500ML.BAG with DOPamine DRIP 800 MG IV SCH (20:00)
[2018-01-08 20:18] LABS: Prothrombin Time 9.7 sec (9.0-12.0)
[2018-01-08 21:25] LABS: Glucose,Whole Blood 255 mg/dL (75-99)
[2018-01-08] MEDS: ATORVASTATIN 20 MG TAB PO SCH (21:30)
[2018-01-09 06:11] LABS: Glucose,Whole Blood 125 mg/dL (75-99)
[2018-01-09] MEDS: INSULIN ASPART 100 UNIT/ML 1 ML 10 ML VIAL SQ SCH ×4 (06:16→21:34)
[2018-01-09] MEDS: PANTOPRAZOLE 40 MG TABLET PO SCH (06:39)
[2018-01-09 07:06] LABS: Calcium 8.7 mg/dL (8.4-10.2); Magnesium 1.8 mg/dL (1.6-2.3); Phosphorus 6.2 mg/dL (2.5-4.5); Potassium 5.1 mmol/L (3.5-5.1)
[2018-01-09 07:37] LABS: Basophils % (A) 0 %; Eosinophils # (A) 0.1 k/uL (0-0.7); Eosinophils % (A) 2 %; HCT 38.4 % (39.0-53.0); HGB 11.9 gm/dL (13.0-17.5); Hypochromasia Slight; Lymphocytes # (A) 0.7 k/uL (1.0-4.8); Lymphocytes % (A) 8 %; MCH 28.5 pg (25.0-35.0); MCHC 31.1 g/dL (31.0-37.0); MCV 91.8 fL (80.0-100.0); Mean Platelet Volume 9.4; Monocytes # (A) 0.6 k/uL (0-1.0); Monocytes % (A) 7 %; Neutrophils # (A) 6.6 k/uL (1.3-7.7); Neutrophils % (A) 82 %; Platelet Count 117 k/uL (150-450); RBC 4.18 m/uL (4.30-5.90); RDW 13.6 % (11.5-15.5); WBC 8.1 k/uL (3.8-10.6)
[2018-01-09] MEDS: IPRATROPIUM-ALBUTEROL 3 ML NEB INHALATION SCH ×3 (08:05→20:49)
[2018-01-09] MEDS: MAVYRET PO SCH (08:46)
[2018-01-09] MEDS: INSULIN DETEMIR 100 UNIT/ML 10 ML VIAL SQ SCH (08:48)
[2018-01-09] MEDS: GABAPENTIN 400 MG CAP PO SCH ×4 (08:49→21:34)
[2018-01-09] MEDS: HEPARIN SODIUM,PORCINE 5,000 UNIT/ML 1 ML VIAL SQ SCH ×3 (08:49→22:59)
--- NOTE | 2018-01-09 09:34 | P.PN ---
Subjective Progress Note Date: 01/09/18 Principal diagnosis: Pancreatitis Admitted with acute kidney injury, abdominal chest pain elevated pancreatic liver enzymes consistent with acute pancreatitis with a history of EtOH abuse. White count 8.1. Hemoglobin 11.9. BUN 63. Creatinine 4.3. GGT 708. Lipase . Afebrile. Mild midepigastric abdominal pain. Ultrasound limited exam CBD 0.5 cm. Liver within normal limits. No stones. Pancreas obscured by bowel gas. Objective - Vital Signs Vital signs: Vital Signs Temp 101.6 F H 01/09/18 08:00 Pulse 76 01/09/18 08:16 Resp 18 01/09/18 08:00 BP 116/87 01/09/18 08:00 Pulse Ox 95 01/09/18 08:06 Intake & Output 01/08/18 01/09/18 01/09/18 18:59 06:59 18:59 Intake Total 480 120 Output Total 100 525 Balance 380 -405 Weight 105 kg Intake: IV 480 Sodium Chloride 0.9% 1, 480 000 ml @ 10 mls/hr IV . Q24H [facility] Rx#:[id number] Oral 120 Output: Urine 100 525 Uretheral (Elise) 100 Other: Voiding Method Indwelling Catheter Indwelling Catheter - Exam General appearance: The patient is alert, oriented, in no acute distress. HET: Head is normocephalic and atraumatic. Pupils are equal and reactive. Oropharynx is clear without lesions. Neck: Supple without lymphadenopathy. Trachea midline. Heart: S1 S2. Regular rate and rhythm. Lungs: No crackles or wheezes are heard. Abdomen: Soft, nontender, nondistended with bowel sounds. No peritoneal signs. No palpable organomegaly or masses. Extremities: Normal skin color and turgor. No cyanosis, rash, ulceration, clubbing, or edema. Radial and pedal pulses are 2/4 bilaterally. Leise with clear yellow urine. Neurological: No focal deficits. Strength and sensation are grossly intact. - Labs CBC & Chem 7: 01/09/18 06:30 01/09/18 06:30 Labs: Abnormal Lab Results - Last 24 Hours (Table) 01/08/18 01/08/18 01/08/18 Range/Units 06:25 11:54 16:57 RBC (4.30-5.90) m/uL Hgb (13.0-17.5) gm/dL Hct (39.0-53.0) % Plt Count (150-450) k/uL Lymphocytes # (1.0-4.8) k/uL Sodium (137-145) mmol/L Carbon Dioxide (22-30) mmol/L BUN (9-20) mg/dL Creatinine (0.66-1.25) mg/dL Glucose (74-99) mg/dL POC Glucose (mg/dL) 156 H 119 H (75-99) mg/dL Phosphorus (2.5-4.5) mg/dL Amylase 193 H (30-110) U/L Lipase 2949 H (23-300) U/L 01/08/18 01/09/18 01/09/18 Range/Units 21:23 05:56 06:30 RBC 4.18 L (4.30-5.90) m/uL Hgb 11.9 L (13.0-17.5) gm/dL Hct 38.4 L (39.0-53.0) % Plt Count 117 L (150-450) k/uL Lymphocytes # 0.7 L (1.0-4.8) k/uL Sodium (137-145) mmol/L Carbon Dioxide (22-30) mmol/L BUN (9-20) mg/dL Creatinine (0.66-1.25) mg/dL Glucose (74-99) mg/dL POC Glucose (mg/dL) 255 H 125 H (75-99) mg/dL Phosphorus (2.5-4.5) mg/dL Amylase (30-110) U/L Lipase (23-300) U/L 01/09/18 Range/Units 06:30 RBC (4.30-5.90) m/uL Hgb (13.0-17.5) gm/dL Hct (39.0-53.0) % Plt Count (150-450) k/uL Lymphocytes # (1.0-4.8) k/uL Sodium 134 L (137-145) mmol/L Carbon Dioxide 20 L (22-30) mmol/L BUN 63 H (9-20) mg/dL Creatinine 4.30 H (0.66-1.25) mg/dL Glucose 145 H (74-99) mg/dL POC Glucose (mg/dL) (75-99) mg/dL Phosphorus 6.2 H (2.5-4.5) mg/dL Amylase (30-110) U/L Lipase 1337 H (23-300) U/L Microbiology - Last 24 Hours (Table) 01/07/18 05:30 Urine Culture - Final Urine,Voided - Imaging and Cardiology US - abdomen: report reviewed (Dr. Crystal) Assessment and Plan Assessment: Impression: 1. Acute pancreatitis possible alcohol related possible alcohol hepatitis. Elevated GGT. 2. History of ETOH. 3. History of pancreatitis last documented episode September 2017. 4. Acute kidney injury; worsening BUN/creatinine. 5. Positive hepatitis C IgG antibody. Plan: 1. Full liquids. IV hydration. Nephrology consult. US abdomen reviewed. 2. Daily CMP, lipase, amylase. 3. Quantitative HCV to assess effectiveness of current antiviral therapy. 4. Will follow with you. Assessment and plan a care discussed with Dr. Crystal
--- NOTE | 2018-01-09 09:36 | XR ---
EXAMINATION TYPE: XR chest 1V portable DATE OF EXAM: 01/09/2018 CLINICAL HISTORY: Fever rule out pneumonia TECHNIQUE: Single AP portable frontal view of the chest is obtained. COMPARISON: Chest x-ray from 2 days earlier and older studies FINDINGS: Exam is suboptimal due to portable technique and patient's large body habitus. There is de generative change at bilateral glenohumeral joints. There is marked cardiomegaly with multi lead pace maker. There is left mid to lower lung opacity silhouetting left heart border and hemidiaphragm that remains present. Overall low lung volumes are present. There is diminished inspiration from older isidro dies. IMPRESSION: Persistent left mid to basilar opacity silhouetting heart border and hemidiaphragm new fr om December 11 study could reflect infiltrate and/or atelectasis, cannot exclude underlying effusion. Ther e is background cardiomegaly with suspected central vascular congestion. Poor inspiration is noted.
[2018-01-09] MEDS: ACETAMINOPHEN TAB 325 MG TAB PO PRN ×2 (11:22→18:25)
[2018-01-09 11:25] LABS: Glucose,Whole Blood 146 mg/dL (75-99)
--- NOTE | 2018-01-09 12:14 | P.PN ---
Subjective Progress Note Date: 01/09/18 Principal diagnosis: Abdominal and chest pain. Patient was very lethargic last night, this morning is more awake. However he started having fever as high as 101.6. He denied having shortness of breath, abdominal pain or chest pain. Objective - Vital Signs Vital signs: Vital Signs Temp 101.6 F H 01/09/18 08:00 Pulse 76 01/09/18 08:16 Resp 18 01/09/18 08:00 BP 116/87 01/09/18 08:00 Pulse Ox 95 01/09/18 08:06 Intake & Output 01/08/18 01/09/18 01/09/18 18:59 06:59 18:59 Intake Total 480 120 200 Output Total 100 525 Balance 380 -405 200 Weight 105 kg Intake: IV 480 80 Sodium Chloride 0.9% 1, 480 80 000 ml @ 10 mls/hr IV . Q24H [facility] Rx#:[id number] Oral 120 120 Output: Urine 100 525 Uretheral (Elise) 100 Other: Voiding Method Indwelling Catheter Indwelling Catheter Indwelling Catheter - Exam Constitutional: No acute distress, conversant, pleasant Eyes: Positive for edema around the eyelids and eyes. Anicteric sclerae, moist conjunctiva, no lid-lag, PERRLA, ENMT: Oropharynx clear, no erythema, exudates Neck: Supple, FROM, no masses, or JVD, No carotid bruits, No thyromegaly Lungs: Clear to auscultation, Clear to percussion, Normal respiratory effort, no accessory muscle use Cardiovascular: Heart regular in rate and rhythm, No murmurs, gallops, or rubs, 1+ peripheral edema Abdominal: Soft, Nontender, no guarding, rebound or rigidity, Normoactive bowel sounds, No hepatomegaly, No splenomegaly, No palpable mass Skin: Normal temperature, tone, texture, turgor, no induration, No subcutaneous nodules, No rash, lesions, No ulcers Extremities: No digital cyanosis, No clubbing, Pedal pulses intact and symmetrical, Radial pulses intact and symmetrical, No calf tenderness Psychiatric: Alert and oriented to person, place and time, appropriate affect, intact judgement Neuro: Muscles Strength 5/5 in all 4 extremities, Sensation to light touch grossly present throughout, Cranial nerves II-XII grossly intact, no focal sensory deficits - Labs CBC & Chem 7: 01/09/18 06:30 01/09/18 06:30 Labs: Abnormal Lab Results - Last 24 Hours (Table) 01/08/18 01/08/18 01/09/18 Range/Units 16:57 21:23 05:56 RBC (4.30-5.90) m/uL Hgb (13.0-17.5) gm/dL Hct (39.0-53.0) % Plt Count (150-450) k/uL Lymphocytes # (1.0-4.8) k/uL Sodium (137-145) mmol/L Carbon Dioxide (22-30) mmol/L BUN (9-20) mg/dL Creatinine (0.66-1.25) mg/dL Glucose (74-99) mg/dL POC Glucose (mg/dL) 119 H 255 H 125 H (75-99) mg/dL Phosphorus (2.5-4.5) mg/dL Lipase (23-300) U/L 01/09/18 01/09/18 01/09/18 Range/Units 06:30 06:30 11:23 RBC 4.18 L (4.30-5.90) m/uL Hgb 11.9 L (13.0-17.5) gm/dL Hct 38.4 L (39.0-53.0) % Plt Count 117 L (150-450) k/uL Lymphocytes # 0.7 L (1.0-4.8) k/uL Sodium 134 L (137-145) mmol/L Carbon Dioxide 20 L (22-30) mmol/L BUN 63 H (9-20) mg/dL Creatinine 4.30 H (0.66-1.25) mg/dL Glucose 145 H (74-99) mg/dL POC Glucose (mg/dL) 146 H (75-99) mg/dL Phosphorus 6.2 H (2.5-4.5) mg/dL Lipase 1337 H (23-300) U/L Microbiology - Last 24 Hours (Table) 01/07/18 05:30 Urine Culture - Final Urine,Voided Assessment and Plan Plan: Abdominal and chest pain likely acute pancreatitis Etiology unclear possibly ETOH related? Ultrasound of the abdomen, nonrevealing Lipase trending down GI following Elevated trops Likely non-specific, sec to above Echo checked, positive for moderate pulm hypertension, no motion abnormalities to suggest acute event. Continue Coreg, hold LUCINDA inhibitor because of renal failure Seen by cardio Acute renal failure with hyperkalemia Lasix and dopamine drips He made 350 mL of urine since last night. Continue to hold LUCINDA inhibitor Recheck electrolytes and renal function in a.m. Status post treatment with Kayexalate, insulin with D50 for hyperkalemia. 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
[2018-01-09 12:32] LABS: Appearance,Urine Clear (Clear); Bacteria,Urine Rare /hpf; Bilirubin,Urine Negative (Negative); Blood,Urine Small (Negative); Color,Urine Yellow; Glucose,Urine (UA) Negative (Negative); Hyaline Casts,Urine 22 /lpf (0-2); Ketones,Urine Negative (Negative); Leukocyte Esterase,Urine Negative (Negative); Mucus,Urine Rare /hpf; Nitrite,Urine Negative (Negative); Protein,Urine Negative (Negative); RBC,Urine 9 /hpf (0-5); Specific Gravity,Urine 1.006 (1.001-1.035); Squamous Epithelial Cell,Urine <1 /hpf (0-4); Urobilinogen,Urine <2.0 mg/dL (<2.0); WBC,Urine 1 /hpf (0-5)
--- NOTE | 2018-01-09 13:12 | PN ---
PROGRESS NOTE Patient is seen for followup for acute kidney injury. He was oliguric yesterday. Patient's blood pressure was also low. He had minimal urine output with 60 mg of Lasix IV push. However, he was started on Lasix drip and dopamine drip as blood pressure was low. His urine output has picked up overnight and patient has had about 600 mL over the last 12 hours. Currently, patient has an indwelling Elise catheter with about 300 mL noted in his bag. Overall, he states he is feeling slightly better. PHYSICAL EXAMINATION: This morning blood pressure was 116/87. He had a temp of 101.6. Examination of the heart, S1, S2. Examination of the lungs, bilateral breath sounds are heard. Decreased breath sounds at the bases. Abdomen is soft, nontender. Examination of the lower extremities shows edema 1+ bilaterally. 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 Patient is moving all 4 extremities. LABS: Show sodium of 134, potassium 5.1, BUN 63, serum creatinine 4.3, phosphorus of 6.2. Lipase is 1337, which is down from 2949 yesterday. UA is fairly benign with small blood noted. ASSESSMENT: 1. Acute kidney injury, ATN currently nonoliguric with improving urine output. Serum creatinine is higher than yesterday; however. Expect improvement over the next few days as the urine output has picked up now. Blood pressure is now running a bit on the high side. I will discontinue the dopamine and continue with the Lasix drip at 10 mg an hour. 2. Acute pancreatitis. Lipase is decreasing. Patient is tolerating oral intake. 3. Hyperphosphatemia associated with renal failure. We will hold off on the phosphate binders for now, unless renal function does not improve over the next few days. 4. Hyperkalemia associated with acute kidney injury. 5. Type 2 diabetes, currently on insulin. 6. History of positive hepatitis C antibody. 7. History of EtOH abuse. 8. Fever. UA is unremarkable. PLAN: Blood cultures will be ordered. May need further imaging of the abdomen if the patient has new or worsening abdominal pain. TAHIR dopamine. MMODL / IJN: [id number] /
--- NOTE | 2018-01-09 15:09 | CONS ---
CONSULTATION DATE OF SERVICE: 01/08/2018 REASON FOR CONSULT: Renal failure. HISTORY OF PRESENT ILLNESS: The patient is a 72-year-old -[place] male who was admitted to the hospital on 01/06/2018 with complaints of chest pain and abdominal pain. His serum creatinine was 1.85 on initial admission. It has gone up to 3.9 today. Serum creatinine was as low as 1.15 and 1.0 in September of 2017. The patient's blood pressure has been low, with systolic pressure around 106 to 107 mmHg. The patient has not received any IV contrast. At home he was on Cozaar, which is currently on hold. Patient is also mildly hyperkalemic with serum potassium as high as 6.6. It is down to 5.5 and 5.6 now. Urine output has been low with only about 150 mL noted overnight. There was no evidence of urine retention on a bladder scan. Currently patient is being treated for pancreatitis, and this morning he states he is feeling short of breath. He denies any chest pain. He does have some abdominal pain. Lipase level was as high as 2949, which is down from 4295 on initial admission. An echocardiogram done on admission showed ejection fraction 50% to 55% with dilated left atrium. PAST MEDICAL HISTORY: 1. Previous episode of acute kidney injury in September with creatinine as high as 2.1, which had completely resolved. It had been as high as 3.7 in May of 2016. 2. Coronary artery disease. 3. COPD. 4. Type 2 diabetes. 5. Hyperlipidemia. 6. Hypertension. 7. Chronic liver disease. 8. History of EtOH abuse. 9. Previous ejection fraction noted at 20%. 10.Gouty arthritis. 11.Previous history of hemothorax. 12.History of liver biopsy. 13.Chest tube placement. PAST SURGICAL HISTORY: 1. Cardiac catheterization. 2. Permanent pacemaker placement. 3. Cataract surgeries. 4. PTCA stent in 2010. 5. Previous liver biopsy in 2013. SOCIAL HISTORY: Negative for smoking, drug abuse or alcohol abuse. MEDICATIONS AT HOME: 1. Coreg. 2. Colace. 3. Insulin. 4. Cozaar. 5. Lasix .. 6. Aldactone. 7. Protonix. 8. Imdur. 9. Hydralazine. 10.Neurontin. 11.Lipitor. 12.[place]. 13.Insulin. 14.Magnesium. ALLERGIES: NONE. REVIEW OF SYSTEMS: As per HPI. Other systems negative. PHYSICAL EXAMINATION: Patient is comfortable, awake. He is not in any acute distress. He is alert and oriented x3. He is sleepy but arousable. LABS: Sodium 134, potassium 5.6, chloride 105, BUN 58, serum creatinine 3.9, lipase 2949, amylase 193, hemoglobin 11.3 g/dL. ASSESSMENT: 1. Acute kidney injury, acute tubular necrosis, currently oliguric secondary to hypotension and hypoperfusion. Patient will be given a dose of Lasix at 60 mg. If he does not diurese, I will start him on Lasix drip. 2. Hyperkalemia associated with acute kidney injury. Angiotensin receptor blockers are currently on hold. Expect improvement with improving renal function. I will hold off on Kayexalate, given his pancreatitis and abdominal pain. 3. Acute pancreatitis, possibly alcohol-related. No evidence of gallstones on abdominal imaging. 4. Previous history of acute kidney injury in September with significant resolution and improvement in renal function with creatinine back down to 1.1 and 1.0 mg/dL. 5. Type 2 diabetes. PLAN: Hep-Lock IV fluids. Start Lasix drip if the patient does not respond to this dose of IV Lasix. Continue to hold off on angiotensin receptor blockers and LUCINDA inhibitors. Try to avoid hypotension. If patient's urine output does not improve, he will need to be dialyzed. Thank you for this consultation. We will continue to follow the patient with you during his hospitalization. MMODL / IJN: [id number] /
[2018-01-09] MEDS: FUROSEMIDE 250 MG in SODIUM CHLORIDE 0.9% 225 ML IVP SCH (15:59)
[2018-01-09] MEDS: MAGNESIUM OXIDE 400 MG TAB PO SCH (15:59)
[2018-01-09 16:43] LABS: Glucose,Whole Blood 151 mg/dL (75-99)
[2018-01-09] MEDS: amLODIPine 5 MG TAB PO SCH (18:25)
[2018-01-09 20:29] LABS: Glucose,Whole Blood 146 mg/dL (75-99)
[2018-01-09] MEDS ORDERED: ISOSORBIDE MONONITRATE ER 30 MG TAB.ER.24H PO STA (21:27)
[2018-01-09] MEDS: ATORVASTATIN 20 MG TAB PO SCH (21:34)
[2018-01-10] MEDS ORDERED: amLODIPine 5 MG TAB PO STA (00:06)
[2018-01-10] MEDS: ACETAMINOPHEN TAB 325 MG TAB PO PRN ×3 (00:08→17:04)
[2018-01-10] MEDS: SODIUM CHLORIDE 0.9% 1,000 ML IV SCH (00:13)
[2018-01-10 06:07] LABS: Glucose,Whole Blood 132 mg/dL (75-99)
[2018-01-10] MEDS: INSULIN ASPART 100 UNIT/ML 1 ML 10 ML VIAL SQ SCH ×4 (06:43→20:55)
[2018-01-10] MEDS: PANTOPRAZOLE 40 MG TABLET PO SCH (06:43)
[2018-01-10 07:18] LABS: Calcium 8.8 mg/dL (8.4-10.2)
[2018-01-10 07:25] LABS: Potassium 5.1 mmol/L (3.5-5.1); Total Protein 7.2 g/dL (6.3-8.2)
[2018-01-10 07:26] LABS: Albumin 3.4 g/dL (3.5-5.0)
[2018-01-10] MEDS: IPRATROPIUM-ALBUTEROL 3 ML NEB INHALATION SCH ×3 (08:07→20:20)
[2018-01-10] MEDS: MAVYRET PO SCH (09:06)
[2018-01-10] MEDS: MAGNESIUM OXIDE 400 MG TAB PO SCH (09:16)
[2018-01-10] MEDS: ISOSORBIDE MONONITRATE ER 60 MG TAB.ER.24H PO SCH (09:16)
[2018-01-10] MEDS: amLODIPine 5 MG TAB PO SCH (09:16)
[2018-01-10] MEDS: HEPARIN SODIUM,PORCINE 5,000 UNIT/ML 1 ML VIAL SQ SCH ×2 (09:16→16:58)
[2018-01-10] MEDS: INSULIN DETEMIR 100 UNIT/ML 10 ML VIAL SQ SCH (09:16)
[2018-01-10] MEDS: GABAPENTIN 400 MG CAP PO SCH ×3 (09:16→20:55)
--- NOTE | 2018-01-10 09:19 | PN ---
PROGRESS NOTE DATE OF SERVICE: 01/10/2018 Patient is a 72-year-old male admitted to hospital with abdominal pain and chest pain. Subsequently diagnosed with acute pancreatitis, probably related to alcohol use and he was also noted to have elevated serum transaminases consistent with chronic alcoholic liver disease. The patient this morning is feeling better. He still has some abdominal discomfort. He reports no nausea, vomiting. He denies any diarrhea or constipation. No fever, chills, night sweats. PHYSICAL EXAMINATION: On physical examination, he appears comfortable, in no apparent distress. Vital signs are stable. Blood pressure is 151/81, pulse 60, temperature 99. HEENT examination is unremarkable. Conjunctivae pink. Sclerae anicteric. Oral cavity, no lesion. NECK: No JVD or lymph node enlargement. CHEST: Clear to auscultation. HEART: Regular rate and rhythm. Abdomen was slightly distended. There was mild tenderness in the epigastric area. Bowel sounds are positive. No organomegaly. EXTREMITIES: No pedal edema. SKIN: No rashes. NEURO: He is alert and oriented x3, but somewhat confused. LABS: The lab from this morning, CBC is not available but yesterday WBC 8.1, hemoglobin 11.9 platelets. The BUN is 70, creatinine is 2.97. Lipase is down to 1324. T bilirubin is down to 2, AST 77, ALT is 45, and alkaline phosphatase is 174. IMPRESSION: 1. Acute pancreatitis, probably related to alcohol use. Labs are gradually improving. 2. Elevated AST more than ALT and slight elevation of T bilirubin up to 2. All of this is consistent with chronic alcoholic liver disease with a component of acute alcoholic hepatitis. RECOMMENDATION: 1. Continue with a clear liquid diet. 2. Pain medications as needed. 3. Repeat labs in the morning and will follow the patient closely during his hospital stay. Thank you for this consultation. MMODL / IJN: [id number] /
--- NOTE | 2018-01-10 10:17 | PN ---
PROGRESS NOTE Patient is seen for followup for acute kidney injury. He is currently resting in bed. He states he overall is feeling better. Blood pressure has been running high. The patient remains on Lasix drip with significant improvement in urine output. His 24 hour urine output was 4.6 L. PHYSICAL EXAMINATION: On examination, blood pressure is 178/88 this morning, heart rate 74 per minute. Patient had a temp of 100 degrees Fahrenheit. EXAMINATION OF THE HEART: S1, S2. EXAMINATION OF THE LUNGS: Bilateral wheezing is heard and basal crackles are heard. Abdomen is soft, nontender, distended, obese. Examination of the lower extremities shows edema 1+ bilaterally. LABS: Labs show sodium of 136, potassium 5.1, chloride 103, CO2 is 18, BUN 70, serum creatinine 2.95. Lipase 1324. ASSESSMENT: 1. Acute kidney injury, acute tubular necrosis, nonoliguric, initially oliguric, currently improving. 2. Volume overload maintained on Lasix drip, which I will continue for now. 3. Acute pancreatitis, no evidence of gallstones. 4. Currently improving, patient is able to tolerate oral intake. 5. Hypertension, partly volume sensitive. We will resume Norvasc and Imdur and expect further improvement in the blood pressure with improving volume status. 6. Hyperkalemia associated with acute kidney injury, now improving. 7. Metabolic acidosis. Expect improvement with improving renal function. CO2 slightly lower today. We will repeat in a.m. I want to hold off on starting sodium bicarb to avoid significant sodium load. PLAN: Continue with Lasix drip. Resume Norvasc and Imdur. Repeat labs in a.m.. MMODL / IJN: [id number] /
[2018-01-10 11:33] LABS: Glucose,Whole Blood 236 mg/dL (75-99)
--- NOTE | 2018-01-10 11:59 | P.PN ---
Subjective Progress Note Date: 01/10/18 Principal diagnosis: Abdominal and chest pain. Doing better. Objective - Vital Signs Vital signs: Vital Signs Temp 101.5 F H 01/10/18 09:13 Pulse 76 01/10/18 08:19 Resp 20 01/10/18 07:12 BP 178/88 01/10/18 07:12 Pulse Ox 96 01/10/18 07:12 Intake & Output 01/09/18 01/10/18 01/10/18 18:59 06:59 18:59 Intake Total 510 240 740 Output Total 1900 2725 Balance -1390 -2485 740 Weight 105 kg 104.5 kg Intake: IV 80 Sodium Chloride 0.9% 1, 80 000 ml @ 10 mls/hr IV . Q24H [facility] Rx#:[id number] Intake, IV Titration 250 Amount Furosemide 250 mg In 250 Sodium Chloride 0.9% 225 ml @ 10 MG/HR 10 mls/hr IVP .Q24H [facility] Rx#: [id number] Oral 180 240 740 Output: Urine 1900 2725 Other: Voiding Method Indwelling Catheter Indwelling Catheter Indwelling Catheter - Exam Constitutional: No acute distress, conversant, pleasant Eyes: Positive for edema around the eyelids and eyes. Anicteric sclerae, moist conjunctiva, no lid-lag, PERRLA, ENMT: Oropharynx clear, no erythema, exudates Neck: Supple, FROM, no masses, or JVD, No carotid bruits, No thyromegaly Lungs: Clear to auscultation, Clear to percussion, Normal respiratory effort, no accessory muscle use Cardiovascular: Heart regular in rate and rhythm, No murmurs, gallops, or rubs, 1+ peripheral edema Abdominal: Soft, Nontender, no guarding, rebound or rigidity, Normoactive bowel sounds, No hepatomegaly, No splenomegaly, No palpable mass Skin: Normal temperature, tone, texture, turgor, no induration, No subcutaneous nodules, No rash, lesions, No ulcers Extremities: No digital cyanosis, No clubbing, Pedal pulses intact and symmetrical, Radial pulses intact and symmetrical, No calf tenderness Psychiatric: Alert and oriented to person, place and time, appropriate affect, intact judgement Neuro: Muscles Strength 5/5 in all 4 extremities, Sensation to light touch grossly present throughout, Cranial nerves II-XII grossly intact, no focal sensory deficits - Labs CBC & Chem 7: 18 06:30 01/10/18 06:16 Labs: Abnormal Lab Results - Last 24 Hours (Table) 01/09/18 01/09/18 01/09/18 Range/Units 12:00 16:38 20:27 Sodium (137-145) mmol/L Carbon Dioxide (22-30) mmol/L BUN (9-20) mg/dL Creatinine (0.66-1.25) mg/dL Glucose (74-99) mg/dL POC Glucose (mg/dL) 151 H 146 H (75-99) mg/dL Total Bilirubin (0.2-1.3) mg/dL AST (17-59) U/L Alkaline Phosphatase (38-126) U/L Albumin (3.5-5.0) g/dL Lipase (23-300) U/L Urine Blood Small H (Negative) Urine RBC 9 H (0-5) /hpf Urine Bacteria Rare H (None) /hpf Hyaline Casts 22 H (0-2) /lpf Urine Mucus Rare H (None) /hpf 01/10/18 01/10/18 01/10/18 Range/Units 06:06 06:16 11:31 Sodium 136 L (137-145) mmol/L Carbon Dioxide 18 L (22-30) mmol/L BUN 70 H (9-20) mg/dL Creatinine 2.95 H (0.66-1.25) mg/dL Glucose 125 H (74-99) mg/dL POC Glucose (mg/dL) 132 H 236 H (75-99) mg/dL Total Bilirubin 2.0 H (0.2-1.3) mg/dL AST 77 H (17-59) U/L Alkaline Phosphatase 172 H (38-126) U/L Albumin 3.4 L (3.5-5.0) g/dL Lipase 1324 H (23-300) U/L Urine Blood (Negative) Urine RBC (0-5) /hpf Urine Bacteria (None) /hpf Hyaline Casts (0-2) /lpf Urine Mucus (None) /hpf Microbiology - Last 24 Hours (Table) 01/09/18 12:00 Urine Culture - Preliminary Urine,Catheterized Assessment and Plan Plan: Abdominal and chest pain likely acute pancreatitis Etiology unclear possibly ETOH related? Ultrasound of the abdomen, nonrevealing Lipase trending down GI following Elevated trops Likely non-specific, sec to above Echo checked, positive for moderate pulm hypertension, no motion abnormalities to suggest acute event. Continue Coreg, hold LUCINDA inhibitor because of renal failure Seen by cardio Acute renal failure with hyperkalemia Improving Lasix and dopamine drips UOP improving. Continue to hold LUCINDA inhibitor Recheck electrolytes and renal function in a.m. Status post treatment with Kayexalate, insulin with D50 for hyperkalemia. Diabetes mellitus type 2 with hyperglycemia Resume home insulin regimen Sliding scale insulin moderate dose Blood sugar check CBC and at bedtime Sugars currently controlled Essential hypertension, COPD, hyperlipidemia, osteoarthritis Stable Resume home meds DVT prophylaxis Heparin subcu
[2018-01-10 16:45] LABS: Glucose,Whole Blood 228 mg/dL (75-99)
[2018-01-10] MEDS: FUROSEMIDE 250 MG in SODIUM CHLORIDE 0.9% 225 ML IVP SCH (16:59)
[2018-01-10 20:47] LABS: Glucose,Whole Blood 143 mg/dL (75-99)
[2018-01-10] MEDS: ATORVASTATIN 20 MG TAB PO SCH (20:55)
[2018-01-11] MEDS ORDERED: amLODIPine 5 MG TAB PO STA (00:09)
[2018-01-11] MEDS: HEPARIN SODIUM,PORCINE 5,000 UNIT/ML 1 ML VIAL SQ SCH ×4 (00:11→23:32)
[2018-01-11] MEDS: ACETAMINOPHEN TAB 325 MG TAB PO PRN (00:12)
[2018-01-11] MEDS: SODIUM CHLORIDE 0.9% 1,000 ML IV SCH ×2 (00:13→21:15)
[2018-01-11 05:57] LABS: Glucose,Whole Blood 108 mg/dL (75-99)
[2018-01-11] MEDS: INSULIN ASPART 100 UNIT/ML 1 ML 10 ML VIAL SQ SCH ×4 (06:09→21:13)
[2018-01-11] MEDS: PANTOPRAZOLE 40 MG TABLET PO SCH (06:28)
[2018-01-11] MEDS: IPRATROPIUM-ALBUTEROL 3 ML NEB INHALATION SCH ×3 (07:56→20:12)
[2018-01-11 08:47] LABS: Calcium 9.2 mg/dL (8.4-10.2); Potassium 4.2 mmol/L (3.5-5.1)
[2018-01-11] MEDS: ISOSORBIDE MONONITRATE ER 60 MG TAB.ER.24H PO SCH (09:00)
[2018-01-11] MEDS: MAGNESIUM OXIDE 400 MG TAB PO SCH (09:00)
[2018-01-11] MEDS: hydrALAZINE HCL 50 MG TAB PO SCH ×2 (09:00→19:50)
[2018-01-11] MEDS: INSULIN DETEMIR 100 UNIT/ML 10 ML VIAL SQ SCH (09:00)
[2018-01-11] MEDS: GABAPENTIN 400 MG CAP PO SCH ×3 (09:00→19:50)
[2018-01-11] MEDS: amLODIPine 5 MG TAB PO SCH (09:00)
[2018-01-11] MEDS: MAVYRET PO SCH (09:01)
--- NOTE | 2018-01-11 09:01 | PN ---
PROGRESS NOTE Patient is seen for followup for acute kidney injury. He has had good urine output with 24 hour output of about 3.8 L. The patient is doing well. His weight is down. He still remains on Lasix drip with evidence of volume overload. PHYSICAL EXAMINATION: Blood pressure is 167/79, heart rate 79 per minute. He is afebrile. Examination of the heart S1, S2. Examination of the lungs bilateral breath sounds are heard. Decreased breath sounds at bases. ABDOMEN: Soft, distended, nontender. Examination lower extremity shows edema 1+ bilaterally. LABS: Not available from today. ASSESSMENT: 1. Acute kidney injury, acute tubular necrosis, currently nonoliguric with improving renal function. Continue with the Lasix drip for now. 2. Hypertension, partly volume sensitive. Initially blood pressure was low and now the blood pressure has been running high. Patient is maintained on Norvasc and Imdur that he had been taking at home. His Cozaar is on hold. I will add hydralazine to but at a lower dose. The patient was on it at home. 3. Acute pancreatitis with no evidence of gallstones. Clinically improving. The patient is tolerating oral intake. 4. Volume overload, currently improving. PLAN: Resume low-dose hydralazine. Continue with Lasix drip. Check labs today. MMODL / IJN: [id number] /
[2018-01-11] MEDS: HYDROcodone/APAP 7.5-325MG 1 EACH TAB PO PRN (09:09)
--- NOTE | 2018-01-11 09:37 | PN ---
PROGRESS NOTE DATE OF SERVICE: 01/11/2018 The patient is a 72-year-old, pleasant male admitted to the hospital with abdominal pain and chest pain and acute pancreatitis/elevated LFTs. He is doing better. He remains on a clear liquid diet. No new symptoms today. He reports no nausea, vomiting. No fever, chills, night sweats. PHYSICAL EXAMINATION: He appears comfortable. No apparent distress. VITAL SIGNS: Stable. Blood pressure is 167/79, pulse is 79, temperature 99. HEENT examination unremarkable. Conjunctivae pink. Sclerae anicteric. Oral cavity no lesions. NECK: No JVD or lymph node enlargement. Chest was clear to auscultation. HEART: Regular rate and rhythm. ABDOMEN: Soft. There was mild tenderness in the epigastric area. Bowel sounds are positive. No organomegaly. Extremities no pedal edema. Skin no rashes. Neuro: He is alert and oriented x3. No focal deficits. LAB: From today, basic metabolic panel, BUN is 67, creatinine 1.86. The rest of the labs are still pending. Yesterday lipase was 1324. IMPRESSION: 1. Acute pancreatitis related to alcohol use, gradually improving. 2. Elevated LFTs. The patient may have a component of alcoholic hepatitis. 3. Acute kidney injury for which Dr. Rojas is following the patient closely. 4. Diabetes mellitus. RECOMMENDATION: Continue with clear liquid diet. Await rest of the labs from today, encourage him to remain abstinent from alcohol and we will follow him closely during his hospital stay. MMSARAYL / IJN: [id number] /
[2018-01-11 11:33] LABS: Glucose,Whole Blood 182 mg/dL (75-99)
--- NOTE | 2018-01-11 12:39 | P.PN ---
Subjective Progress Note Date: 01/11/18 Principal diagnosis: Abdominal and chest pain. Feeling better, wanting to go home. Objective - Vital Signs Vital signs: Vital Signs Temp 99.9 F H 01/11/18 08:00 Pulse 90 01/11/18 08:07 Resp 18 01/11/18 08:00 BP 145/65 01/11/18 10:40 Pulse Ox 94 L 01/11/18 08:00 Intake & Output 01/10/18 01/11/18 01/11/18 18:59 06:59 18:59 Intake Total 1360 360 Output Total 1250 2550 Balance 110 -2550 360 Weight 100.5 kg Intake: Intake, IV Titration 250 Amount Furosemide 250 mg In 250 Sodium Chloride 0.9% 225 ml @ 10 MG/HR 10 mls/hr IVP .Q24H [facility] Rx#: [id number] Oral 1110 360 Output: Urine 1250 2550 Other: Voiding Method Indwelling Catheter Indwelling Catheter Indwelling Catheter # Voids 1 - Exam Constitutional: No acute distress, conversant, pleasant Eyes: Positive for edema around the eyelids and eyes. Anicteric sclerae, moist conjunctiva, no lid-lag, PERRLA, ENMT: Oropharynx clear, no erythema, exudates Neck: Supple, FROM, no masses, or JVD, No carotid bruits, No thyromegaly Lungs: Clear to auscultation, Clear to percussion, Normal respiratory effort, no accessory muscle use Cardiovascular: Heart regular in rate and rhythm, No murmurs, gallops, or rubs, 1+ peripheral edema Abdominal: Soft, Nontender, no guarding, rebound or rigidity, Normoactive bowel sounds, No hepatomegaly, No splenomegaly, No palpable mass Skin: Normal temperature, tone, texture, turgor, no induration, No subcutaneous nodules, No rash, lesions, No ulcers Extremities: No digital cyanosis, No clubbing, Pedal pulses intact and symmetrical, Radial pulses intact and symmetrical, No calf tenderness Psychiatric: Alert and oriented to person, place and time, appropriate affect, intact judgement Neuro: Muscles Strength 5/5 in all 4 extremities, Sensation to light touch grossly present throughout, Cranial nerves II-XII grossly intact, no focal sensory deficits - Labs CBC & Chem 7: 01/09/18 06:30 07/01/18 08:25 Labs: Abnormal Lab Results - Last 24 Hours (Table) 01/10/18 01/10/18 01/11/18 Range/Units 16:39 20:46 05:56 BUN (9-20) mg/dL Creatinine (0.66-1.25) mg/dL Glucose (74-99) mg/dL POC Glucose (mg/dL) 228 H 143 H 108 H (75-99) mg/dL 01/11/18 01/11/18 Range/Units 08:25 11:28 BUN 67 H (9-20) mg/dL Creatinine 1.86 H (0.66-1.25) mg/dL Glucose 131 H (74-99) mg/dL POC Glucose (mg/dL) 182 H (75-99) mg/dL Microbiology - Last 24 Hours (Table) 01/09/18 12:00 Urine Culture - Final Urine,Catheterized 01/09/18 11:03 Blood Culture - Preliminary Blood No Growth after 24 hours 01/09/18 11:17 Blood Culture - Preliminary Blood No Growth after 24 hours Assessment and Plan Plan: Abdominal and chest pain likely acute pancreatitis, likely alcoholic Etiology unclear possibly ETOH related? Patient doesn't admit to drinking Ultrasound of the abdomen, nonrevealing Lipase trending down--- recheck in a.m. GI following Elevated trops Likely non-specific, sec to above Echo checked, positive for moderate pulm hypertension, no motion abnormalities to suggest acute event. Continue Coreg, hold LUCINDA inhibitor because of renal failure Seen by cardio Acute renal failure with hyperkalemia Improving Continue lasix drip UOP improving. Nephrology following. Continue to hold LUCINDA inhibitor Recheck electrolytes and renal function in a.m. Status post treatment with Kayexalate, insulin with D50 for hyperkalemia. Diabetes mellitus type 2 with hyperglycemia Resume home insulin regimen Sliding scale insulin moderate dose Blood sugar check CBC and at bedtime Sugars currently controlled Essential hypertension, COPD, hyperlipidemia, osteoarthritis Stable Resume home meds DVT prophylaxis Heparin subcu
[2018-01-11] MEDS: FUROSEMIDE 250 MG in SODIUM CHLORIDE 0.9% 225 ML IVP SCH (15:46)
[2018-01-11 16:57] LABS: Glucose,Whole Blood 135 mg/dL (75-99)
[2018-01-11] MEDS: ATORVASTATIN 20 MG TAB PO SCH (19:50)
[2018-01-11 21:08] LABS: Glucose,Whole Blood 97 mg/dL (75-99)
[2018-01-12 05:57] LABS: Glucose,Whole Blood 85 mg/dL (75-99)
[2018-01-12] MEDS: INSULIN ASPART 100 UNIT/ML 1 ML 10 ML VIAL SQ SCH ×4 (06:05→21:27)
[2018-01-12] MEDS: PANTOPRAZOLE 40 MG TABLET PO SCH (06:22)
[2018-01-12 07:31] LABS: Calcium 9.1 mg/dL (8.4-10.2); Magnesium 1.6 mg/dL (1.6-2.3); Potassium 4.2 mmol/L (3.5-5.1)
[2018-01-12 07:40] LABS: Basophils % (A) 0 %; Eosinophils # (A) 0.1 k/uL (0-0.7); Eosinophils % (A) 1 %; HCT 35.6 % (39.0-53.0); HGB 11.4 gm/dL (13.0-17.5); Lymphocytes # (A) 1.3 k/uL (1.0-4.8); Lymphocytes % (A) 9 %; MCH 28.5 pg (25.0-35.0); MCHC 32.1 g/dL (31.0-37.0); Mean Platelet Volume 10.7; Monocytes # (A) 1.3 k/uL (0-1.0); Monocytes % (A) 9 %; Neutrophils # (A) 10.9 k/uL (1.3-7.7); Neutrophils % (A) 78 %; Platelet Count 111 k/uL (150-450); RBC 3.99 m/uL (4.30-5.90); RDW 13.8 % (11.5-15.5); WBC 13.9 k/uL (3.8-10.6)
[2018-01-12] MEDS: IPRATROPIUM-ALBUTEROL 3 ML NEB INHALATION SCH ×3 (08:13→19:31)
[2018-01-12] MEDS ORDERED: Magnesium Replacement Protocol 1 EACH MISC MISCELLANE PRN (09:37)
[2018-01-12] MEDS ORDERED: POLYETHYLENE GLYCOL 3350 17 GM POWD.PACK PO PRN (09:39)
[2018-01-12] MEDS: INSULIN DETEMIR 100 UNIT/ML 10 ML VIAL SQ SCH (09:42)
[2018-01-12] MEDS: ISOSORBIDE MONONITRATE ER 60 MG TAB.ER.24H PO SCH (09:43)
[2018-01-12] MEDS: MAVYRET PO SCH (09:43)
[2018-01-12] MEDS: GABAPENTIN 400 MG CAP PO SCH ×3 (09:43→21:27)
[2018-01-12] MEDS: amLODIPine 5 MG TAB PO SCH (09:43)
[2018-01-12] MEDS: hydrALAZINE HCL 50 MG TAB PO SCH ×3 (09:43→21:27)
[2018-01-12] MEDS: HEPARIN SODIUM,PORCINE 5,000 UNIT/ML 1 ML VIAL SQ SCH ×2 (09:43→17:39)
[2018-01-12] MEDS: MAGNESIUM OXIDE 400 MG TAB PO SCH (09:44)
[2018-01-12] MEDS: ACETAMINOPHEN TAB 325 MG TAB PO PRN ×2 (09:45→17:39)
[2018-01-12] MEDS ORDERED: POLYETHYLENE GLYCOL 3350 17 GM POWD.PACK PO SCH (09:45)
--- NOTE | 2018-01-12 10:32 | PN ---
PROGRESS NOTE The patient is seen for followup for acute kidney injury and volume overload. He is maintained on Lasix drip. He has had significant improvement in his renal function as well as volume status. I will discontinue the Lasix drip today and we can switch him to IV push Lasix. The patient wants to go home. He has been tolerating oral intake without any abdominal pain. His lipase level has been decreasing. PHYSICAL EXAMINATION: On examination, blood pressure was 162/85. The patient is still febrile. Temperature 101, heart rate 80 per minute. EXAMINATION OF THE HEART: S1, S2. EXAMINATION OF THE LUNGS: Decreased breath sounds at bases. Abdomen is soft, nontender. Examination of the lower extremities shows edema trace bilaterally. GROUND MIXER exam is grossly intact. Patient moving all 4 extremities. LABS: Labs show sodium of 138, potassium 4.2, BUN 66, serum creatinine 1.6. Lipase is 1195 which is down from 1324. Hemoglobin at 11.4 g/dL. ASSESSMENT: 1. Acute kidney injury, acute tubular necrosis, nonoliguric and improving. 2. Volume overload maintained on Lasix drip with significant improvement in volume status. 3. I will switch to IV push Lasix and discontinue the Lasix drip. 4. Hypertension, partly volume sensitive, currently slightly better controlled. The patient is maintained on hydralazine, Norvasc, Imdur. 5. Acute pancreatitis with decreasing lipase levels, tolerating oral intake. 6. Elevated liver function tests secondary to component of alcohol hepatitis. 7. Type 2 diabetes. PLAN: Discontinue Lasix drip. Switch to IV push Lasix. Continue current antihypertensive medications. MMODL / IJN: [id number] /
[2018-01-12] MEDS: MAGNESIUM SULFATE-D5W PMX 1 GM in DEXTROSE/WATER 1 100ML.BAG IVPB SCH ×2 (10:40→12:28)
[2018-01-12 11:55] LABS: Glucose,Whole Blood 228 mg/dL (75-99)
--- NOTE | 2018-01-12 12:09 | P.PN ---
Subjective Progress Note Date: 01/12/18 Principal diagnosis: Abdominal and chest pain. Patient denied having any abdominal pain, no nausea or vomiting. Patient just had a fever of 101. Objective - Vital Signs Vital signs: Vital Signs Temp 101 F H 01/12/18 08:59 Pulse 80 01/12/18 08:59 Resp 18 01/12/18 09:00 BP 162/85 01/12/18 08:59 Pulse Ox 96 01/12/18 08:59 Intake & Output 01/11/18 01/12/18 01/12/18 18:59 06:59 18:59 Intake Total 1107.833 60 300 Output Total 1350 1200 500 Balance -242.167 -1140 -200 Weight 102 kg Intake: IV 80 60 Sodium Chloride 0.9% 1, 80 60 000 ml @ 10 mls/hr IV . Q24H [facility] Rx#:[id number] Intake, IV Titration 307.833 Amount Furosemide 250 mg In 227.833 Sodium Chloride 0.9% 225 ml @ 10 MG/HR 10 mls/hr IVP .Q24H [facility] Rx#: [id number] Sodium Chloride 0.9% 1, 80 000 ml @ 10 mls/hr IV . Q24H [facility] Rx#:[id number] Oral 720 300 Output: Urine 1350 1200 500 Other: Voiding Method Indwelling Catheter Indwelling Catheter Indwelling Catheter # Bowel Movements 1 - Exam Constitutional: No acute distress, conversant, pleasant Eyes: Positive for edema around the eyelids and eyes. Anicteric sclerae, moist conjunctiva, no lid-lag, PERRLA, ENMT: Oropharynx clear, no erythema, exudates Neck: Supple, FROM, no masses, or JVD, No carotid bruits, No thyromegaly Lungs: Clear to auscultation, Clear to percussion, Normal respiratory effort, no accessory muscle use Cardiovascular: Heart regular in rate and rhythm, No murmurs, gallops, or rubs, 1+ peripheral edema Abdominal: Soft, Nontender, no guarding, rebound or rigidity, Normoactive bowel sounds, No hepatomegaly, No splenomegaly, No palpable mass Skin: Normal temperature, tone, texture, turgor, no induration, No subcutaneous nodules, No rash, lesions, No ulcers Extremities: No digital cyanosis, No clubbing, Pedal pulses intact and symmetrical, Radial pulses intact and symmetrical, No calf tenderness Psychiatric: Alert and oriented to person, place and time, appropriate affect, intact judgement Neuro: Muscles Strength 5/5 in all 4 extremities, Sensation to light touch grossly present throughout, Cranial nerves II-XII grossly intact, no focal sensory deficits - Labs CBC & Chem 7: 01/12/18 06:07 01/12/18 06:07 Labs: Abnormal Lab Results - Last 24 Hours (Table) 01/11/18 01/12/18 01/12/18 Range/Units 16:51 06:07 06:07 WBC 13.9 H (3.8-10.6) k/uL RBC 3.99 L (4.30-5.90) m/uL Hgb 11.4 L (13.0-17.5) gm/dL Hct 35.6 L (39.0-53.0) % Plt Count 111 L (150-450) k/uL Neutrophils # 10.9 H (1.3-7.7) k/uL Monocytes # 1.3 H (0-1.0) k/uL Chloride 96 L (98-107) mmol/L BUN 66 H (9-20) mg/dL Creatinine 1.66 H (0.66-1.25) mg/dL POC Glucose (mg/dL) 135 H (75-99) mg/dL Lipase 1195 H (23-300) U/L 01/12/18 Range/Units 11:52 WBC (3.8-10.6) k/uL RBC (4.30-5.90) m/uL Hgb (13.0-17.5) gm/dL Hct (39.0-53.0) % Plt Count (150-450) k/uL Neutrophils # (1.3-7.7) k/uL Monocytes # (0-1.0) k/uL Chloride (98-107) mmol/L BUN (9-20) mg/dL Creatinine (0.66-1.25) mg/dL POC Glucose (mg/dL) 228 H (75-99) mg/dL Lipase (23-300) U/L Microbiology - Last 24 Hours (Table) 01/09/18 11:03 Blood Culture - Preliminary Blood No Growth after 48 hours 01/09/18 11:17 Blood Culture - Preliminary Blood No Growth after 48 hours Assessment and Plan Plan: Abdominal and chest pain likely acute pancreatitis, likely alcoholic Etiology unclear possibly ETOH related? Patient doesn't admit to drinking Ultrasound of the abdomen, nonrevealing Lipase trending down--- recheck in a.m. D/W GI Recurrent fevers: Workup for fevers was done 2 days ago. Urinalysis was negative for pyuria. Blood cultures are negative. Chest x-ray showed possible atelectasis versus infiltrate. Because patient wasn't having shortness of breath and leukocytosis he was not treated with antibiotics. Tylenol when necessary for fever Consult ID Elevated trops Likely non-specific, sec to above, seen by cardiology Echo checked, positive for moderate pulm hypertension, no motion abnormalities to suggest acute event. Continue Coreg, hold LUCINDA inhibitor because of renal failure Acute renal failure with hyperkalemia Improving Lasix drip switched to IV lasix push by nephrology. UOP improving. Continue to hold LUCINDA inhibitor Recheck electrolytes and renal function in a.m. Status post treatment with Kayexalate, insulin with D50 for hyperkalemia. Diabetes mellitus type 2 with hyperglycemia Resume home insulin regimen Sliding scale insulin moderate dose Blood sugar check CBC and at bedtime Sugars currently controlled Essential hypertension, Blood pressure has been elevated throughout the admission, Resume home doses of his BP meds Follow-up BP COPD, hyperlipidemia, osteoarthritis Stable Resume home meds DVT prophylaxis Heparin subcu
[2018-01-12] MEDS ORDERED: hydrALAZINE HCL 50 MG TAB PO ONE (12:15)
[2018-01-12] MEDS: CARVEDILOL 12.5 MG TAB PO SCH ×2 (12:29→17:40)
[2018-01-12 16:25] LABS: Hepatits C Virus RNA DETECTED (Not detected); Hepatits C Virus RNA, Quant 32 IU/mL (<12); LOG HCV IU/mL 1.51 (<1.08)
[2018-01-12 16:44] LABS: Glucose,Whole Blood 180 mg/dL (75-99)
[2018-01-12 21:10] LABS: Glucose,Whole Blood 182 mg/dL (75-99)
[2018-01-12] MEDS: ATORVASTATIN 20 MG TAB PO SCH (21:27)
[2018-01-12] MEDS: FUROSEMIDE 10 MG/ML 10 ML VIAL IV SCH (21:36)
[2018-01-12] MEDS: SODIUM CHLORIDE 0.9% 1,000 ML IV SCH (21:47)
[2018-01-13] MEDS: HEPARIN SODIUM,PORCINE 5,000 UNIT/ML 1 ML VIAL SQ SCH ×3 (00:32→18:10)
[2018-01-13 05:53] LABS: Glucose,Whole Blood 119 mg/dL (75-99)
[2018-01-13] MEDS: INSULIN ASPART 100 UNIT/ML 1 ML 10 ML VIAL SQ SCH ×4 (06:09→20:53)
[2018-01-13] MEDS: CARVEDILOL 12.5 MG TAB PO SCH ×2 (06:10→18:11)
[2018-01-13] MEDS: PANTOPRAZOLE 40 MG TABLET PO SCH (06:10)
[2018-01-13] MEDS: HYDROcodone/APAP 7.5-325MG 1 EACH TAB PO PRN ×2 (06:18→12:14)
[2018-01-13 07:09] LABS: Calcium 8.8 mg/dL (8.4-10.2); Magnesium 2.2 mg/dL (1.6-2.3); Phosphorus 3.8 mg/dL (2.5-4.5); Potassium 4.1 mmol/L (3.5-5.1)
[2018-01-13] MEDS: IPRATROPIUM-ALBUTEROL 3 ML NEB INHALATION SCH ×3 (07:21→19:56)
[2018-01-13 07:49] LABS: HCT 33.1 % (39.0-53.0); MCH 29.3 pg (25.0-35.0); MCHC 33.2 g/dL (31.0-37.0); MCV 88.3 fL (80.0-100.0); Mean Platelet Volume 10.4; Platelet Count 103 k/uL (150-450); RBC 3.75 m/uL (4.30-5.90); RDW 13.6 % (11.5-15.5); WBC 10.6 k/uL (3.8-10.6)
[2018-01-13] MEDS: INSULIN DETEMIR 100 UNIT/ML 10 ML VIAL SQ SCH (08:10)
[2018-01-13] MEDS: FUROSEMIDE 10 MG/ML 10 ML VIAL IV SCH (08:11)
[2018-01-13] MEDS: MAVYRET PO SCH (08:12)
[2018-01-13] MEDS: hydrALAZINE HCL 50 MG TAB PO SCH ×3 (08:12→21:22)
[2018-01-13] MEDS: ISOSORBIDE MONONITRATE ER 60 MG TAB.ER.24H PO SCH (08:12)
[2018-01-13] MEDS: GABAPENTIN 400 MG CAP PO SCH ×3 (08:12→21:22)
[2018-01-13] MEDS: MAGNESIUM OXIDE 400 MG TAB PO SCH (08:12)
[2018-01-13 10:34] LABS: Anisocytosis (M) Present; Eosinophils # (M) 0.42 k/uL (0-0.7); Lymphocytes # (M) 2.54 k/uL (1.0-4.8); Monocytes # (M) 0.64 k/uL (0-1.0); Neutrophils % (M) 66 %; Nucleated Red Blood Cells 0 /100 WBC (0-0); Total Cells Counted 100
[2018-01-13 11:23] LABS: Glucose,Whole Blood 183 mg/dL (75-99)
--- NOTE | 2018-01-13 11:35 | P.PN ---
Subjective Progress Note Date: 01/13/18 Principal diagnosis: Abdominal and chest pain. Patient is significantly weak, he is supposed to eat his first regular meal today at lunch. I called his cousin who's number is listed in the computer to try to get more information about the patient. He told me that he occasionally drinks beer but he wasn't sure how much in a day he drinks. The line was cut off when I asked him if anybody was supposed to be the patient's decision maker. I called back again and there was no answer. Objective - Vital Signs Vital signs: Vital Signs Temp 99.3 F 01/13/18 08:00 Pulse 72 01/13/18 11:16 Resp 18 01/13/18 08:00 BP 142/67 01/13/18 08:00 Pulse Ox 96 01/13/18 08:00 Intake & Output 01/12/18 01/13/18 01/13/18 18:59 06:59 18:59 Intake Total 300 800 Output Total 500 400 Balance -200 400 Weight 102 kg 102 kg Intake: IV 0 Sodium Chloride 0.9% 1, 0 000 ml @ 10 mls/hr IV . Q24H [facility] Rx#:[id number] Oral 300 800 Output: Urine 500 400 Uretheral (Elise) 400 Other: Voiding Method Indwelling Catheter Indwelling Catheter Indwelling Catheter - Exam Constitutional: No acute distress, conversant, pleasant Eyes: Positive for edema around the eyelids and eyes. Anicteric sclerae, moist conjunctiva, no lid-lag, PERRLA, ENMT: Oropharynx clear, no erythema, exudates Neck: Supple, FROM, no masses, or JVD, No carotid bruits, No thyromegaly Lungs: Clear to auscultation, Clear to percussion, Normal respiratory effort, no accessory muscle use Cardiovascular: Heart regular in rate and rhythm, No murmurs, gallops, or rubs, 1+ peripheral edema Abdominal: Soft, Nontender, no guarding, rebound or rigidity, Normoactive bowel sounds, No hepatomegaly, No splenomegaly, No palpable mass Skin: Normal temperature, tone, texture, turgor, no induration, No subcutaneous nodules, No rash, lesions, No ulcers Extremities: No digital cyanosis, No clubbing, Pedal pulses intact and symmetrical, Radial pulses intact and symmetrical, No calf tenderness Psychiatric: Alert and oriented to person, place and time, appropriate affect, intact judgement Neuro: Muscles Strength 5/5 in all 4 extremities, Sensation to light touch grossly present throughout, Cranial nerves II-XII grossly intact, no focal sensory deficits - Labs CBC & Chem 7: 01/13/18 06:08 01/13/18 06:08 Labs: Abnormal Lab Results - Last 24 Hours (Table) 01/09/18 01/12/18 01/12/18 Range/Units 06:30 11:52 16:42 RBC (4.30-5.90) m/uL Hgb (13.0-17.5) gm/dL Hct (39.0-53.0) % Plt Count (150-450) k/uL Sodium (137-145) mmol/L Chloride (98-107) mmol/L BUN (9-20) mg/dL Creatinine (0.66-1.25) mg/dL Glucose (74-99) mg/dL POC Glucose (mg/dL) 228 H 180 H (75-99) mg/dL Hepatitis C Viral RNA DETECTED H (Not detected) IU/mL Hepatitis C RNA Quant 32 H (<12) IU/mL HCV RNA PCR log IUs/ml 1.51 H (<1.08) 01/12/18 01/13/18 01/13/18 Range/Units 21:09 05:52 06:08 RBC (4.30-5.90) m/uL Hgb (13.0-17.5) gm/dL Hct (39.0-53.0) % Plt Count (150-450) k/uL Sodium 133 L (137-145) mmol/L Chloride 92 L (98-107) mmol/L BUN 70 H (9-20) mg/dL Creatinine 2.41 H (0.66-1.25) mg/dL Glucose 117 H (74-99) mg/dL POC Glucose (mg/dL) 182 H 119 H (75-99) mg/dL Hepatitis C Viral RNA (Not detected) IU/mL Hepatitis C RNA Quant (<12) IU/mL HCV RNA PCR log IUs/ml (<1.08) 01/13/18 Range/Units 06:08 RBC 3.75 L (4.30-5.90) m/uL Hgb 11.0 L (13.0-17.5) gm/dL Hct 33.1 L (39.0-53.0) % Plt Count 103 L (150-450) k/uL Sodium (137-145) mmol/L Chloride (98-107) mmol/L BUN (9-20) mg/dL Creatinine (0.66-1.25) mg/dL Glucose (74-99) mg/dL POC Glucose (mg/dL) (75-99) mg/dL Hepatitis C Viral RNA (Not detected) IU/mL Hepatitis C RNA Quant (<12) IU/mL HCV RNA PCR log IUs/ml (<1.08) Microbiology - Last 24 Hours (Table) 01/09/18 11:03 Blood Culture - Preliminary Blood No Growth after 72 hours 01/09/18 11:17 Blood Culture - Preliminary Blood No Growth after 72 hours Assessment and Plan Plan: Abdominal and chest pain likely acute pancreatitis, likely alcoholic Etiology unclear possibly ETOH related? Patient doesn't admit to drinking Ultrasound of the abdomen, nonrevealing Lipase trending down--- recheck in a.m. D/W GI Advanced diet to regular Recurrent fevers: Workup for fevers was done 2 days ago. Urinalysis was negative for pyuria. Blood cultures are negative. Chest x-ray showed possible atelectasis versus infiltrate. Because patient wasn't having shortness of breath and leukocytosis he was not treated with antibiotics. Could be secondary to acute pancreatitis Tylenol when necessary for fever Consult ID pending Elevated trops Likely non-specific, sec to above, seen by cardiology Echo checked, positive for moderate pulm hypertension, no motion abnormalities to suggest acute event. Continue Coreg, hold LUCINDA inhibitor because of renal failure Acute renal failure with hyperkalemia Worse today. Continue IV lasix Continue to hold LUCINDA inhibitor Recheck electrolytes and renal function in a.m. Status post treatment with Kayexalate, insulin with D50 for hyperkalemia. Diabetes mellitus type 2 with hyperglycemia Resume home insulin regimen Sliding scale insulin moderate dose Blood sugar check CBC and at bedtime Sugars currently controlled Essential hypertension, Blood pressure has been elevated throughout the admission, Resume home doses of his BP meds Follow-up BP COPD, hyperlipidemia, osteoarthritis Stable Resume home meds General Weakness: PT/OT Will likely need rehab DVT prophylaxis Heparin subcu
--- NOTE | 2018-01-13 12:33 | PN ---
PROGRESS NOTE Patient is seen for followup for acute kidney injury and volume overload. He was maintained on Lasix drip, which was discontinued yesterday. Serum creatinine has gone up from 1.6 to 2.41. Overall, the patient says he is feeling fair. He wants to go home. He has been eating and tolerating oral intake without any episodes of abdominal pain. He has; however, been having fevers with temperature yesterday of 101.9 degrees Fahrenheit. All cultures are currently negative thus far. On examination today, blood pressure 142/67, heart rate is 72 per minute, patient is afebrile. Examination of the heart, S1, S2. Examination of the lungs, bilateral breath sounds are heard. Abdomen is soft, nontender. Examination of the lower extremities shows edema 1+ bilaterally. [employer] SERV[employer]INE[employer] exam is grossly intact. Patient is moving all 4 extremities. LABS: Show sodium 133, potassium 4.1, chloride 92, BUN 70, serum creatinine 2.41, hemoglobin 11.1 g/dL. ASSESSMENT: 1. Acute kidney injury, acute tubular necrosis. Renal function had improved; however, creatinine is higher today, likely secondary to diuresis. patient is currently on 60 mg of Lasix IV q.12 hours. I will repeat a chest x-ray and decrease the Lasix. His blood pressure is not significantly low. 2. Acute pancreatitis with no evidence of gallstones, currently tolerating oral intake. 3. Fever, maintained on empiric antibiotics with cultures currently negative. No abdominal pain. Patient is afebrile today. 4. Volume overload, status post Lasix drip and improved. 5. Hypertension, currently controlled. 6. Elevated liver enzymes secondary to alcoholic hepatitis. 7. Type 2 diabetes. PLAN: Decrease Lasix. Repeat chest x-ray. Repeat labs in a.m. MMODL / IJN: [id number] /
[2018-01-13 17:19] LABS: Glucose,Whole Blood 218 mg/dL (75-99)
--- NOTE | 2018-01-13 17:36 | CONS ---
CONSULTATION DATE OF SERVICE: 01/13/2018 REASON FOR CONSULTATION: Fever. HISTORY OF PRESENT ILLNESS: The patient is a 72-year-old -[place] male who was brought into the ER at [facility] on 01/06/2018, about a week ago, with symptoms predominantly abdominal pain. The patient's symptom had been going on for a day or two prior to presentation to the hospital. The pain was described to be mostly in the epigastric and the left lower abdominal area. When asked about intensity and severity, he says it was severe. He felt nauseated with it but had no vomiting or any diarrhea. With these symptoms the patient was evaluated by the ER physician. The patient did have a CT of abdomen and pelvis completed which showed no significant new or acute findings to account for patient's symptoms; persistent appendicolith without inflammatory changes to suggest acute appendicitis, possible cystitis; correlate clinically. The patient has been treated by admitting cardiology services in addition to the GI. The patient did have a fever. The patient was afebrile for about 48 hours; subsequently started running a fever on 01/09 with a fever of 101.6 degrees Fahrenheit and he did have a daily spike of fever for the last 3 days. That prompted this infectious disease consultation. Patient had a normal white count of 8.6 on admission. It was up to 13.9 yesterday but is down to 10.6 today. The patient did mention that his abdominal pain has improved. No nausea. No vomiting. He denies having any diarrhea. Overall the patient is not a very good historian, though. REVIEW OF SYSTEMS: CONSTITUTIONAL: Positive for weakness along with a fever. EYES: No complaint. ENT: No complaint. RESPIRATORY: No complaint. CARDIOVASCULAR: No complaint. GENITOURINARY: No complaint. GASTROINTESTINAL: As per HPI. MUSCULOSKELETAL: No complaint. INTEGUMENTARY: No complaint. PSYCHOLOGICAL: No complaint. ENDOCRINE: No complaint. NEUROLOGICAL: No complaint. PAST MEDICAL HISTORY: 1. Coronary artery disease. 2. Heart failure. 3. COPD. 4. Diabetes mellitus. 5. Hypertension. 6. Hyperlipidemia. 7. Liver disease. 8. Osteoarthritis. PAST SURGICAL HISTORY: 1. PTCA. 2. Cataract bilateral surgery. 3. Liver biopsy. 4. Permanent pacemaker placement. SOCIAL HISTORY: Denies smoking, drinking or drug use. FAMILY HISTORY: Sister with history of cancer. Mother with history of hypertension. ALLERGIES: NO KNOWN DRUG ALLERGIES. CURRENT MEDICATIONS: 1. Tylenol. 2. Allison. 3. DuoNeb. 4. Lipitor. 5. Coreg. 6. Colace. 7. Lasix. 8. Neurontin. 9. Heparin. 10.Hydralazine. 11.NovoLog. 12.Levemir. 13.Imdur. 14.Mag oxide. 15.Nitrostat. 16.Protonix. PHYSICAL EXAMINATION: Blood pressure 142/70 with a pulse of 67, temperature 98, T-max 101. He is 94% on 2 L nasal cannula. General description is an elderly male lying in bed in no distress. No tachypnea or accessory muscle of respiration use. HEENT examination shows no pallor or scleral icterus. Oral mucosa membrane is moist. No pharyngeal erythema or thrush. NECK: Trachea is central. No thyromegaly. LUNGS: Unlabored breathing. Clear to auscultation anteriorly with decreased breath sounds in the base. No wheeze. HEART: S1, S2. Regular rate and rhythm. ABDOMEN: Soft. Mildly distended. No significant guarding or rigidity EXTREMITIES: No edema of the feet. SKIN EXAMINATION: No rash or mass palpable. Neurologically the patient is awake, alert, oriented x2. Mood and affect normal. LABS: Hemoglobin is 11, white count 10.6, BUN of 70, creatinine 2.41. Blood culture from 01/09 has been negative. Blood culture not repeated since then. DIAGNOSTIC IMPRESSION AND PLAN: Patient with a fever and elevated white count. Source is more likely abdominal in this patient who presented to hospital with abdominal pain, some nausea but no vomiting, with elevated lipase, though initial CT scan was reported to be negative. Patient currently has no other clinical focus of infection responsible for his symptomatology. PLAN: 1. Blood cultures will be repeated. 2. We will obtain a CT of abdomen and pelvis with oral contrast only in view of his elevated creatinine. 3. We will add Zosyn 3.375 q.8 while waiting for the workup to be completed and culture to finalize. 4. We will follow up on clinical condition and culture to further adjust medication if needed. Thank you for this consultation. Will follow this patient along with you. MMODL / IJN: [id number] /
[2018-01-13] MEDS: IOPAMIDOL-300 CONTRAST 30 ML VIAL (ORAL USE) PO PRN ×2 (18:10→19:20)
--- NOTE | 2018-01-13 19:20 | XR ---
EXAMINATION TYPE: XR chest 1V DATE OF EXAM: 01/13/2018 COMPARISON: 01/09/2018 HISTORY: Heart failure chest pain TECHNIQUE: Single frontal view of the chest is obtained. FINDINGS: Heart is enlarged. There is pulmonary vascular congestion. There is slight blunting of cos tophrenic angles. There is left axillary pacemaker with the lead tips in the right ventricle. IMPRESSION: Mild heart failure that is not significantly different than last exam. Cardiomegaly.
[2018-01-13] MEDS: PIPERACILLIN-TAZOBACTAM 3.375 GM in DEXTROSE/WATER 1 50ML.BAG IVPB SCH (19:30)
--- NOTE | 2018-01-13 20:29 | CT ---
EXAMINATION TYPE: CT abdomen pelvis wo con DATE OF EXAM: 01/13/2018 COMPARISON: 01/06/2018 HISTORY: Abdominal pain CT DLP: 1326.2 mGycm Automated exposure control for dose reduction was used. TECHNIQUE: Helical acquisition of images was performed from the lung bases through the pelvis. FINDINGS: There is bilateral infiltrate and atelectasis at the lung bases. Heart is enlarged. Liver and spleen appear normal. Bile ducts are not dilated. Gallbladder appears normal. There is no s ign of a pancreatic mass. There is no adrenal mass. Kidneys have normal size and contour. There is no hydronephrosis. There is oral contrast. I see no intestinal wall thickening. There are no dilated loops. There is no evidence of a bowel obstruction. Appendix appears normal. There is no ascites. There is no sign of free air. T here is Elise catheter in the urinary bladder. There are spondylotic changes in the lumbar spine. I s ee no bony destructive process. There are small posterior disc bulging at L3-4 L4-5. There is vacuum disc at L3-4 and L4-5. There is no compression fracture. There is air in the urinary bladder. There i s no free fluid in the pelvis. IMPRESSION: THERE IS INFILTRATE AND ATELECTASIS AT THE LUNG BASES THAT IS SIMILAR TO OLD EXAM. CARDIOMEGALY. NO A CUTE ABNORMALITY SEEN WITHIN THE ABDOMEN AND PELVIS.
[2018-01-13 20:52] LABS: Glucose,Whole Blood 149 mg/dL (75-99)
[2018-01-13] MEDS: ATORVASTATIN 20 MG TAB PO SCH (20:53)
[2018-01-13] MEDS: FUROSEMIDE 10 MG/ML 4 ML VIAL IV SCH (20:53)
[2018-01-13] MEDS: ACETAMINOPHEN TAB 325 MG TAB PO PRN (21:51)
[2018-01-14] MEDS: HEPARIN SODIUM,PORCINE 5,000 UNIT/ML 1 ML VIAL SQ SCH ×4 (00:31→23:06)
[2018-01-14] MEDS: PIPERACILLIN-TAZOBACTAM 3.375 GM in DEXTROSE/WATER 1 50ML.BAG IVPB SCH ×4 (00:35→23:06)
[2018-01-14] MEDS: SODIUM CHLORIDE 0.9% 1,000 ML IV SCH (06:38)
[2018-01-14] MEDS: IPRATROPIUM-ALBUTEROL 3 ML NEB INHALATION SCH ×3 (07:22→19:26)
[2018-01-14 07:24] LABS: Glucose,Whole Blood 118 mg/dL (75-99)
[2018-01-14] MEDS: INSULIN ASPART 100 UNIT/ML 1 ML 10 ML VIAL SQ SCH ×5 (07:35→23:12)
[2018-01-14] MEDS: FUROSEMIDE 10 MG/ML 4 ML VIAL IV SCH (08:02)
[2018-01-14] MEDS: PANTOPRAZOLE 40 MG TABLET PO SCH (08:03)
[2018-01-14] MEDS: ISOSORBIDE MONONITRATE ER 60 MG TAB.ER.24H PO SCH (08:03)
[2018-01-14] MEDS: hydrALAZINE HCL 50 MG TAB PO SCH ×3 (08:03→23:04)
[2018-01-14] MEDS: CARVEDILOL 12.5 MG TAB PO SCH ×2 (08:03→20:45)
[2018-01-14] MEDS: GABAPENTIN 400 MG CAP PO SCH ×3 (08:03→23:04)
[2018-01-14] MEDS: MAGNESIUM OXIDE 400 MG TAB PO SCH (08:03)
[2018-01-14] MEDS: MAVYRET PO SCH (08:03)
[2018-01-14] MEDS: INSULIN DETEMIR 100 UNIT/ML 10 ML VIAL SQ SCH (09:12)
[2018-01-14 10:28] LABS: Basophils % (A) 0 %; Eosinophils # (A) 0.3 k/uL (0-0.7); Eosinophils % (A) 3 %; HCT 33.3 % (39.0-53.0); HGB 10.8 gm/dL (13.0-17.5); Lymphocytes % (A) 9 %; MCH 28.5 pg (25.0-35.0); MCHC 32.4 g/dL (31.0-37.0); MCV 88.1 fL (80.0-100.0); Mean Platelet Volume 11.2; Monocytes # (A) 0.5 k/uL (0-1.0); Monocytes % (A) 5 %; Neutrophils # (A) 8.7 k/uL (1.3-7.7); Neutrophils % (A) 81 %; Platelet Count 119 k/uL (150-450); RBC 3.78 m/uL (4.30-5.90); RDW 13.6 % (11.5-15.5); WBC 10.7 k/uL (3.8-10.6)
[2018-01-14 10:45] LABS: Albumin 3.4 g/dL (3.5-5.0); Calcium 9.2 mg/dL (8.4-10.2); Magnesium 2.2 mg/dL (1.6-2.3); Phosphorus 5.5 mg/dL (2.5-4.5); Potassium 4.9 mmol/L (3.5-5.1); Total Bilirubin 1.2 mg/dL (0.2-1.3); Total Protein 7.5 g/dL (6.3-8.2)
[2018-01-14 10:51] LABS: Large Platelets Present; Toxic Granulation Present
[2018-01-14 12:12] LABS: Glucose,Whole Blood 243 mg/dL (75-99)
--- NOTE | 2018-01-14 12:33 | PN ---
PROGRESS NOTE DATE OF SERVICE: 01/14/2018. HISTORY: The patient is seen for followup for acute kidney injury. He was admitted to the hospital with pancreatitis, following which the patient developed ATN with serum creatinine going up to 4.3 from 1.85 on initial admission. The patient was started on Lasix drip. He responded very well to diuresis and his creatinine had improved to 1.6. Last couple of days, serum creatinine has been rising and urine output had dropped. Patient remains edematous. He denies any significant shortness of breath. He has also been tolerating oral intake. At baseline the patient has also had fevers with all cultures being negative. CT scan of the abdomen done yesterday showed infiltrate and atelectasis at the lung bases. No major abnormalities in the abdomen. No hydronephrosis was seen. EXAMINATION: This morning, patient is comfortable. Blood pressure is 156/83, heart rate is 72 per minute. He is afebrile. Examination of the heart, S1, S2. Examination lungs bilateral breath sounds are heard. Decreased breath sounds at bases with crackles heard at the bases. Abdomen is soft, nontender, distended, obese. Examination of the lower extremities shows edema 2+ bilaterally. LABS: Hemoglobin 10.8, sodium 129, potassium 4.9, BUN 87, serum creatinine 3.2, phosphorus 5.5, calcium 9.2, albumin 3.4. ASSESSMENT: 1. Acute kidney injury, acute tubular necrosis, initially oliguric, now nonoliguric. Renal function had improved with diuresis, but serum creatinine has slowly been increased in gain for the past 3 days. The patient is also volume overloaded. I will restart the Lasix drip and if the patient does not improve over the next 24 hours we will start dialysis. His blood pressure is currently not low and patient is not on any nephrotoxic medications. His ejection fraction is not low, although it had been low previously. 2. Fever of unclear etiology. ID has been consulted. All cultures are negative thus far. CT of the abdomen did not reveal any significant abnormalities. The patient did have underlying pancreatitis at the time of admission. 3. Volume overload. This had improved with aggressive diuresis, however, patient is now volume overloaded again. 4. Acute pancreatitis, most likely alcohol-related, with no evidence of gallstones. 5. Hyperkalemia associated with acute kidney injury. Continue to diurese the patient and avoid hyperglycemia. 6. Hypertension. Blood pressure was initially low when all blood pressure medications were held, however, lately the blood pressure has been rising and patient is back on his home antihypertensive medications except the LUCINDA inhibitors. PLAN: Increase Lasix to 60 mg every 8 hours. The patient may need Lasix drip as well later on today depending upon his urine output. If his renal function does not improve, patient will be dialyzed. MMODL / IJN: [id number] /
[2018-01-14] MEDS ORDERED: FUROSEMIDE 10 MG/ML 10 ML VIAL IV STA (14:49)
--- NOTE | 2018-01-14 15:12 | P.PN ---
Subjective Progress Note Date: 01/14/18 Principal diagnosis: Abdominal and chest pain. Patient is asking to go home, he is still weak. Urine output is decreasing. When the nurse emptied the Elise bag this morning, she only got 150 mL of urine. Objective - Vital Signs Vital signs: Vital Signs Temp 98.6 F 01/14/18 09:11 Pulse 72 01/14/18 12:29 Resp 16 01/14/18 07:24 BP 156/83 01/14/18 07:24 Pulse Ox 93 L 01/14/18 00:00 Intake & Output 01/13/18 01/14/18 01/14/18 18:59 06:59 18:59 Intake Total 50 580 Output Total 150 Balance 50 430 Weight 102 kg 101.5 kg Intake: IV 80 Sodium Chloride 0.9% 1, 80 000 ml @ 10 mls/hr IV . Q24H REBA Rx#:[id number] Intake, IV Titration 100 Amount Piperacillin-Tazobactam 3 100 .375 gm In Dextrose/Water 1 50ml.bag @ 12.5 mls/hr IVPB Q8HR REBA Rx#: [id number] Oral 50 400 Output: Urine 150 Uretheral (Elise) 150 Other: Voiding Method Indwelling Catheter Indwelling Catheter Indwelling Catheter - Exam Constitutional: No acute distress, conversant, pleasant Eyes: Positive for edema around the eyelids and eyes. Anicteric sclerae, moist conjunctiva, no lid-lag, PERRLA, ENMT: Oropharynx clear, no erythema, exudates Neck: Supple, FROM, no masses, or JVD, No carotid bruits, No thyromegaly Lungs: Clear to auscultation, Clear to percussion, Normal respiratory effort, no accessory muscle use Cardiovascular: Heart regular in rate and rhythm, No murmurs, gallops, or rubs, 1+ peripheral edema Abdominal: Soft, Nontender, no guarding, rebound or rigidity, Normoactive bowel sounds, No hepatomegaly, No splenomegaly, No palpable mass Skin: Normal temperature, tone, texture, turgor, no induration, No subcutaneous nodules, No rash, lesions, No ulcers Extremities: No digital cyanosis, No clubbing, Pedal pulses intact and symmetrical, Radial pulses intact and symmetrical, No calf tenderness Psychiatric: Alert and oriented to person, place and time, appropriate affect, intact judgement Neuro: Muscles Strength 5/5 in all 4 extremities, Sensation to light touch grossly present throughout, Cranial nerves II-XII grossly intact, no focal sensory deficits - Labs CBC & Chem 7: 01/14/18 10:21 01/14/18 10:21 Labs: Abnormal Lab Results - Last 24 Hours (Table) 01/13/18 01/13/18 01/14/18 Range/Units 16:41 20:43 07:22 WBC (3.8-10.6) k/uL RBC (4.30-5.90) m/uL Hgb (13.0-17.5) gm/dL Hct (39.0-53.0) % Plt Count (150-450) k/uL Neutrophils # (1.3-7.7) k/uL Sodium (137-145) mmol/L Chloride (98-107) mmol/L BUN (9-20) mg/dL Creatinine (0.66-1.25) mg/dL Glucose (74-99) mg/dL POC Glucose (mg/dL) 218 H 149 H 118 H (75-99) mg/dL Phosphorus (2.5-4.5) mg/dL Alkaline Phosphatase (38-126) U/L Albumin (3.5-5.0) g/dL Amylase (30-110) U/L Lipase (23-300) U/L 01/14/18 01/14/18 01/14/18 Range/Units 10:21 10:21 11:03 WBC 10.7 H (3.8-10.6) k/uL RBC 3.78 L (4.30-5.90) m/uL Hgb 10.8 L (13.0-17.5) gm/dL Hct 33.3 L (39.0-53.0) % Plt Count 119 L (150-450) k/uL Neutrophils # 8.7 H (1.3-7.7) k/uL Sodium 129 L (137-145) mmol/L Chloride 89 L (98-107) mmol/L BUN 87 H* (9-20) mg/dL Creatinine 3.20 H (0.66-1.25) mg/dL Glucose 265 H (74-99) mg/dL POC Glucose (mg/dL) (75-99) mg/dL Phosphorus 5.5 H (2.5-4.5) mg/dL Alkaline Phosphatase 219 H (38-126) U/L Albumin 3.4 L (3.5-5.0) g/dL Amylase 278 H (30-110) U/L Lipase 2661 H (23-300) U/L 01/14/18 Range/Units 12:09 WBC (3.8-10.6) k/uL RBC (4.30-5.90) m/uL Hgb (13.0-17.5) gm/dL Hct (39.0-53.0) % Plt Count (150-450) k/uL Neutrophils # (1.3-7.7) k/uL Sodium (137-145) mmol/L Chloride (98-107) mmol/L BUN (9-20) mg/dL Creatinine (0.66-1.25) mg/dL Glucose (74-99) mg/dL POC Glucose (mg/dL) 243 H (75-99) mg/dL Phosphorus (2.5-4.5) mg/dL Alkaline Phosphatase (38-126) U/L Albumin (3.5-5.0) g/dL Amylase (30-110) U/L Lipase (23-300) U/L Microbiology - Last 24 Hours (Table) 01/09/18 11:03 Blood Culture - Preliminary Blood No Growth after 120 hours 01/09/18 11:17 Blood Culture - Preliminary Blood No Growth after 120 hours 01/13/18 19:18 Blood Culture Gram Stain - Preliminary Blood 01/13/18 19:18 Blood Culture - Final Blood Assessment and Plan Plan: Abdominal and chest pain likely acute pancreatitis, likely alcoholic Etiology unclear possibly ETOH related? Patient doesn't admit to drinking Ultrasound of the abdomen, nonrevealing Lipase trended down earlier but it trended up again, discontinue diet, back to nothing by mouth Recurrent fevers: Patient continues to have low-grade fevers Workup for fevers was done. Urinalysis was negative for pyuria. Blood cultures are negative. Chest x-ray showed possible atelectasis versus infiltrate. Because patient wasn't having shortness of breath and leukocytosis he was not treated with antibiotics. Could be secondary to acute pancreatitis Tylenol when necessary for fever Consult ID--recommend adding Zosyn and doing computed tomography scan of the abdomen and pelvis which came back negative. Acute renal failure with hyperkalemia Worse today. Patient is volume overloaded again. Continue IV lasix--increase to 60 mg IV every 8 hours by nephrology--if no response will go back on Lasix gtt. Continue to hold LUCINDA inhibitor Recheck electrolytes and renal function in a.m. Status post treatment with Kayexalate, insulin with D50 for hyperkalemia. Elevated trops Likely non-specific, sec to above, seen by cardiology Echo checked, positive for moderate pulm hypertension, no motion abnormalities to suggest acute event. Continue Coreg, hold LUCINDA inhibitor because of renal failure Diabetes mellitus type 2 with hyperglycemia Resume home insulin regimen Sliding scale insulin moderate dose Blood sugar check CBC and at bedtime Sugars currently controlled Essential hypertension, Blood pressure has been elevated throughout the admission, Resume home doses of his BP meds Follow-up BP COPD, hyperlipidemia, osteoarthritis Stable Resume home meds General Weakness: PT/OT Will likely need rehab DVT prophylaxis Heparin subcu
[2018-01-14] MEDS ORDERED: VANCOMYCIN IV PER PHARMACY 1 EACH MISC MISCELLANE PRN (15:24)
[2018-01-14] MEDS ORDERED: VANCOMYCIN 2,000 MG in SODIUM CHLORIDE 0.9% 500 ML IVPB ONE (16:00)
[2018-01-14 17:24] LABS: Glucose,Whole Blood 299 mg/dL (75-99)
[2018-01-14] MEDS: FUROSEMIDE 10 MG/ML 10 ML VIAL IV SCH (20:45)
[2018-01-14] MEDS: ATORVASTATIN 20 MG TAB PO SCH (20:45)
[2018-01-14 21:10] LABS: Glucose,Whole Blood 211 mg/dL (75-99)
--- NOTE | 2018-01-15 05:34 | PN ---
PROGRESS NOTE DATE OF SERVICE: 01/14/2018. REASON FOR FOLLOWUP: Fever and bacteremia. INTERVAL HISTORY: The patient overall feels better and has improved with last fever recorded was 100.3 last evening. The patient has been breathing comfortably. Denies having any chest pain or shortness of breath or cough. His abdominal pain has resolved and no diarrhea. PHYSICAL EXAMINATION: On examination, blood pressure 143/71 with a pulse of 68, temperature 98.9. He is 96% on 2 L nasal cannula. General description is an elderly male lying in bed in no distress. RESPIRATORY SYSTEM: Unlabored breathing, clear to auscultation anteriorly. HEART: S1, S2. Regular rate and rhythm. ABDOMEN: Soft, no tenderness. LABS: Hemoglobin 10.8, white count 10.7 with a BUN of 87, creatinine 3.20. DIAGNOSTIC IMPRESSION AND PLAN: Patient with fever, concern for possible abdominal source in view of his abdominal pain and elevated lipase. He did have a CT of abdomen and pelvis with oral contrast yesterday that did not show any evidence of any inflammation. Blood culture now coming back positive with gram-positive cocci. Antibiotic in the form of daptomycin, as the patient is high risk of nephrotoxicity from vancomycin. Blood culture has been repeated to document clearance of his bacteremia. Continue supportive care. MMODL / IJN: [id number] /
[2018-01-15 07:04] LABS: Glucose,Whole Blood 164 mg/dL (75-99)
[2018-01-15] MEDS: IPRATROPIUM-ALBUTEROL 3 ML NEB INHALATION SCH ×3 (07:04→19:41)
[2018-01-15] MEDS: HEPARIN SODIUM,PORCINE 5,000 UNIT/ML 1 ML VIAL SQ SCH ×4 (07:20→22:56)
[2018-01-15 07:21] LABS: Basophils # (A) 0.1 k/uL (0-0.2); Basophils % (A) 0 %; Eosinophils # (A) 0.3 k/uL (0-0.7); Eosinophils % (A) 3 %; HCT 32.3 % (39.0-53.0); HGB 10.5 gm/dL (13.0-17.5); Lymphocytes # (A) 1.1 k/uL (1.0-4.8); Lymphocytes % (A) 9 %; MCH 28.5 pg (25.0-35.0); MCHC 32.4 g/dL (31.0-37.0); MCV 87.8 fL (80.0-100.0); Mean Platelet Volume 11.9; Monocytes # (A) 0.6 k/uL (0-1.0); Monocytes % (A) 5 %; Neutrophils % (A) 81 %; Platelet Count 121 k/uL (150-450); RBC 3.68 m/uL (4.30-5.90); RDW 13.6 % (11.5-15.5); WBC 12.3 k/uL (3.8-10.6)
[2018-01-15] MEDS ORDERED: HEPARIN SODIUM,PORCINE 5,000 UNIT/ML 1 ML VIAL ONE (07:53)
[2018-01-15 08:04] LABS: Large Platelets Present; Toxic Granulation Present
[2018-01-15 08:10] LABS: Calcium 8.5 mg/dL (8.4-10.2); Magnesium 2.3 mg/dL (1.6-2.3); Phosphorus 6.1 mg/dL (2.5-4.5); Total Bilirubin 1.1 mg/dL (0.2-1.3); Total Protein 6.5 g/dL (6.3-8.2)
[2018-01-15 08:16] LABS: Potassium 5.2 mmol/L (3.5-5.1)
[2018-01-15] MEDS: INSULIN ASPART 100 UNIT/ML 1 ML 10 ML VIAL SQ SCH ×4 (10:41→21:38)
[2018-01-15] MEDS: SODIUM CHLORIDE 0.9% 1,000 ML IV SCH ×2 (10:53→12:45)
[2018-01-15] MEDS: hydrALAZINE HCL 50 MG TAB PO SCH ×3 (10:54→22:55)
[2018-01-15] MEDS: INSULIN DETEMIR 100 UNIT/ML 10 ML VIAL SQ SCH (10:55)
[2018-01-15] MEDS: ISOSORBIDE MONONITRATE ER 60 MG TAB.ER.24H PO SCH (10:55)
[2018-01-15] MEDS: FUROSEMIDE 10 MG/ML 10 ML VIAL IV SCH ×2 (10:56→22:54)
[2018-01-15] MEDS: CARVEDILOL 12.5 MG TAB PO SCH ×2 (10:59→22:55)
[2018-01-15] MEDS: PANTOPRAZOLE 40 MG TABLET PO SCH (11:01)
[2018-01-15] MEDS: GABAPENTIN 400 MG CAP PO SCH (11:02)
[2018-01-15] MEDS: MAGNESIUM OXIDE 400 MG TAB PO SCH (11:02)
[2018-01-15] MEDS: MAVYRET PO SCH (11:03)
[2018-01-15 11:06] LABS: Glucose,Whole Blood 161 mg/dL (75-99)
[2018-01-15] MEDS ORDERED: VANCOMYCIN 2,000 MG in SODIUM CHLORIDE 0.9% 500 ML IVPB ONE (12:00)
--- NOTE | 2018-01-15 12:06 | P.PN ---
Subjective Patient is seen in follow-up for acute kidney injury. Renal function is worsening with creatinine up to 3.8 today. Urine output this morning has been about 100 mL despite 80 mg of IV Lasix. Patient is not a reliable historian. Appetite is poor. He does have diastolic CHF with moderate pulmonary hypertension. Vital signs are stable. General: The patient appeared well nourished and normally developed. HEENT: Head exam is unremarkable. Neck is without jugular venous distension. LUNGS: Breath sounds decreased. HEART: Rate and Rhythm are regular. First and second heart sounds normal. No murmurs, rubs or gallops. ABDOMEN: Abdominal exam reveals normal bowel sounds. Non-tender and non- distended. No evidence of peritonitis. EXTREMITITES: 1+ edema. Objective - Vital Signs Vital signs: Vital Signs Temp 98.6 F 01/15/18 09:02 Pulse 67 01/15/18 09:02 Resp 12 01/15/18 09:02 BP 169/75 01/15/18 09:02 Pulse Ox 97 01/15/18 09:02 Intake & Output 01/14/18 01/15/18 01/15/18 18:59 06:59 18:59 Intake Total 580 950 250 Output Total 150 250 100 Balance 430 700 150 Weight 101.5 kg Intake: IV 80 200 Sodium Chloride 0.9% 1, 80 200 000 ml @ 10 mls/hr IV . Q24H REBA Rx#:[id number] Intake, IV Titration 100 800 50 Amount Piperacillin-Tazobactam 3 100 100 50 .375 gm In Dextrose/Water 1 50ml.bag @ 12.5 mls/hr IVPB Q8HR REBA Rx#: [id number] Sodium Chloride 0.9% 1, 200 000 ml @ 10 mls/hr IV . Q24H REBA Rx#:[id number] Vancomycin 2,000 mg In 500 Sodium Chloride 0.9% 500 ml @ 167 mls/hr IVPB ONCE ONE Rx#:[id number] Oral 400 150 Output: Urine 150 250 100 Uretheral (Elise) 150 150 100 Other: Voiding Method Indwelling Catheter Indwelling Catheter - Labs CBC & Chem 7: 01/15/18 06:10 01/15/18 06:10 Labs: Abnormal Lab Results - Last 24 Hours (Table) 01/14/18 01/14/18 01/14/18 Range/Units 12:09 17:22 21:06 WBC (3.8-10.6) k/uL RBC (4.30-5.90) m/uL Hgb (13.0-17.5) gm/dL Hct (39.0-53.0) % Plt Count (150-450) k/uL Neutrophils # (1.3-7.7) k/uL Sodium (137-145) mmol/L Potassium (3.5-5.1) mmol/L Chloride (98-107) mmol/L BUN (9-20) mg/dL Creatinine (0.66-1.25) mg/dL Glucose (74-99) mg/dL POC Glucose (mg/dL) 243 H 299 H 211 H (75-99) mg/dL Phosphorus (2.5-4.5) mg/dL Alkaline Phosphatase (38-126) U/L Albumin (3.5-5.0) g/dL Amylase (30-110) U/L Lipase (23-300) U/L 01/15/18 01/15/18 01/15/18 Range/Units 06:10 06:10 06:53 WBC 12.3 H (3.8-10.6) k/uL RBC 3.68 L (4.30-5.90) m/uL Hgb 10.5 L (13.0-17.5) gm/dL Hct 32.3 L (39.0-53.0) % Plt Count 121 L (150-450) k/uL Neutrophils # 10.0 H (1.3-7.7) k/uL Sodium 130 L (137-145) mmol/L Potassium 5.2 H (3.5-5.1) mmol/L Chloride 89 L (98-107) mmol/L BUN 91 H* (9-20) mg/dL Creatinine 3.81 H (0.66-1.25) mg/dL Glucose 143 H (74-99) mg/dL POC Glucose (mg/dL) 164 H (75-99) mg/dL Phosphorus 6.1 H (2.5-4.5) mg/dL Alkaline Phosphatase 203 H (38-126) U/L Albumin 3.0 L (3.5-5.0) g/dL Amylase 233 H (30-110) U/L Lipase 1826 H (23-300) U/L 01/15/18 Range/Units 11:03 WBC (3.8-10.6) k/uL RBC (4.30-5.90) m/uL Hgb (13.0-17.5) gm/dL Hct (39.0-53.0) % Plt Count (150-450) k/uL Neutrophils # (1.3-7.7) k/uL Sodium (137-145) mmol/L Potassium (3.5-5.1) mmol/L Chloride (98-107) mmol/L BUN (9-20) mg/dL Creatinine (0.66-1.25) mg/dL Glucose (74-99) mg/dL POC Glucose (mg/dL) 161 H (75-99) mg/dL Phosphorus (2.5-4.5) mg/dL Alkaline Phosphatase (38-126) U/L Albumin (3.5-5.0) g/dL Amylase (30-110) U/L Lipase (23-300) U/L Microbiology - Last 24 Hours (Table) 01/13/18 19:18 Blood Culture Gram Stain - Preliminary Blood Blood Culture - Preliminary Coagulase Negative Staph 01/09/18 11:03 Blood Culture - Preliminary Blood No Growth after 120 hours 01/09/18 11:17 Blood Culture - Preliminary Blood No Growth after 120 hours 01/13/18 19:18 Blood Culture - Final Blood Assessment and Plan Plan: Assessment: 1. Acute kidney injury secondary to ATN secondary to cardiorenal syndrome as well as underlying infection. Renal function worsening with creatinine up to 3.8 today. No proteinuria on UA. 2. Volume overload. 3. Gram-positive bacteremia. Blood culture positive for coag-negative staph. Vancomycin has been discontinued. He is on daptomycin. 4. Pancreatitis. Currently nothing by mouth. 5. Diastolic CHF with moderate pulmonary hypertension. 6. Hypervolemic hyponatremia. 7. Benign hypertension. 8. Insulin-dependent diabetes mellitus. Plan: With worsening renal function and volume overload, plan for first treatment of hemodialysis today and second treatment tomorrow. Vascular surgery consulted for dialysis catheter placement. Continue to monitor renal function and urine output closely. Continue Lasix 80 mg IV twice daily. Follow-up cultures. Antibiotics per infectious disease recommendations. Decrease dose of Neurontin to 100 mg 3 times daily.
[2018-01-15] MEDS: HYDROcodone/APAP 7.5-325MG 1 EACH TAB PO PRN (12:59)
[2018-01-15] MEDS: PIPERACILLIN-TAZOBACTAM 3.375 GM in DEXTROSE/WATER 1 50ML.BAG IVPB SCH (13:57)
--- NOTE | 2018-01-15 14:35 | P.PN ---
Subjective Progress Note Date: 01/15/18 Patient laying comfortably in bed denies that he has any abdominal pain or nausea, patient afebrile. apparently only had 100 mL out after receiving Lasix yesterday Objective - Vital Signs Vital signs: Vital Signs Temp 98.7 F 01/15/18 14:10 Pulse 68 01/15/18 14:10 Resp 16 01/15/18 14:10 BP 145/52 01/15/18 14:10 Pulse Ox 97 01/15/18 14:10 Intake & Output 01/14/18 01/15/18 01/15/18 18:59 06:59 18:59 Intake Total 580 950 370 Output Total 150 250 100 Balance 430 700 270 Weight 102.5 kg Intake: IV 80 200 Sodium Chloride 0.9% 1, 80 200 000 ml @ 10 mls/hr IV . Q24H REBA Rx#:[id number] Intake, IV Titration 100 800 50 Amount Piperacillin-Tazobactam 3 100 100 50 .375 gm In Dextrose/Water 1 50ml.bag @ 12.5 mls/hr IVPB Q8HR REBA Rx#: [id number] Sodium Chloride 0.9% 1, 200 000 ml @ 10 mls/hr IV . Q24H REBA Rx#:[id number] Vancomycin 2,000 mg In 500 Sodium Chloride 0.9% 500 ml @ 167 mls/hr IVPB ONCE ONE Rx#:[id number] Oral 400 150 120 Output: Urine 150 250 100 Uretheral (Elise) 150 150 100 Other: Voiding Method Indwelling Catheter Indwelling Catheter - Exam Constitutional: No acute distress, conversant, pleasant Eyes: Anicteric sclerae, moist conjunctiva, no lid-lag, PERRLA ENMT: NC/AT,Oropharynx clear, no erythema, exudates Neck:Supple, FROM, no masses, or JVD, No carotid bruits; No thyromegaly Lungs: Clear to auscultation, Clear to percussion, Normal respiratory effort, no accessory muscle use Cardiovascular: Heart regular in rate and rhythm, No murmurs, gallops, or rubs no peripheral edema Abdominal: Soft Nontender, nom distended, no guarding, no rebound or rigidity, Normoactive bowel sounds No hepatomegaly, No splenomegaly, No palpable mass No abdominal wall hernia noted Skin: Normal temperature, tone, texture, turgor, No induration No subcutaneous nodules, No rash, lesions, No ulcers Extremities:No digital cyanosis No clubbing, Pedal pulses intact and symmetrical Radial pulses intact and symmetrical Normal gait and station, No calf tenderness, +1 pitting edema bilaterally Psychiatric: Alert and oriented to person, place and time, Appropriate affect Intact judgement Neuro: Muscles Strength 5/5 in all 4 extremities, Sensation to light touch grossly present throughout, Cranial nerves II-XII grossly intact. No focal sensory deficits - Labs CBC & Chem 7: 01/15/18 06:10 01/15/18 06:10 Labs: Abnormal Lab Results - Last 24 Hours (Table) 01/14/18 01/14/18 01/15/18 Range/Units 17:22 21:06 06:10 WBC 12.3 H (3.8-10.6) k/uL RBC 3.68 L (4.30-5.90) m/uL Hgb 10.5 L (13.0-17.5) gm/dL Hct 32.3 L (39.0-53.0) % Plt Count 121 L (150-450) k/uL Neutrophils # 10.0 H (1.3-7.7) k/uL Sodium (137-145) mmol/L Potassium (3.5-5.1) mmol/L Chloride (98-107) mmol/L BUN (9-20) mg/dL Creatinine (0.66-1.25) mg/dL Glucose (74-99) mg/dL POC Glucose (mg/dL) 299 H 211 H (75-99) mg/dL Phosphorus (2.5-4.5) mg/dL Alkaline Phosphatase (38-126) U/L Albumin (3.5-5.0) g/dL Amylase (30-110) U/L Lipase (23-300) U/L 01/15/18 01/15/18 01/15/18 Range/Units 06:10 06:53 11:03 WBC (3.8-10.6) k/uL RBC (4.30-5.90) m/uL Hgb (13.0-17.5) gm/dL Hct (39.0-53.0) % Plt Count (150-450) k/uL Neutrophils # (1.3-7.7) k/uL Sodium 130 L (137-145) mmol/L Potassium 5.2 H (3.5-5.1) mmol/L Chloride 89 L (98-107) mmol/L BUN 91 H* (9-20) mg/dL Creatinine 3.81 H (0.66-1.25) mg/dL Glucose 143 H (74-99) mg/dL POC Glucose (mg/dL) 164 H 161 H (75-99) mg/dL Phosphorus 6.1 H (2.5-4.5) mg/dL Alkaline Phosphatase 203 H (38-126) U/L Albumin 3.0 L (3.5-5.0) g/dL Amylase 233 H (30-110) U/L Lipase 1826 H (23-300) U/L Microbiology - Last 24 Hours (Table) 01/09/18 11:03 Blood Culture - Final Blood No Growth after 144 hours 01/09/18 11:17 Blood Culture - Final Blood No Growth after 144 hours 01/13/18 19:18 Blood Culture Gram Stain - Preliminary Blood Blood Culture - Preliminary Coagulase Negative Staph 01/13/18 19:18 Blood Culture - Final Blood Assessment and Plan Plan: Abdominal and chest pain likely acute pancreatitis, likely alcoholic Etiology unclear possibly ETOH related? Patient doesn't admit to drinking Ultrasound of the abdomen, nonrevealing Lipase trended down patient currently denies abdominal pain Restarted on clear liquids and advanced to diabetic diet Recurrent fevers: Patient afebrile Gram-positive bacteremia repeat cultures pending Chest x-ray showed possible atelectasis versus infiltrate. Because patient wasn 't having shortness of breath and leukocytosis he was not treated with antibiotics. Could be secondary to acute pancreatitis Tylenol when necessary for fever Appreciate ID recommendations patient currently on daptomycin, vancomycin discontinued secondary to nephrotoxicity Acute renal failure with hyperkalemia Creatinine Worse today. Patient is volume overloaded again. Poor response to IV Lasix, Continue to hold LUCINDA inhibitor Recheck electrolytes and renal function in a.m. Vascular to place a tunneled dialysis catheter placement with plans for hemodialysis today or tomorrow Elevated trops Likely non-specific, sec to above, seen by cardiology Echo checked, positive for moderate pulm hypertension, no motion abnormalities to suggest acute event. Continue Coreg, hold LUCINDA inhibitor because of renal failure Diabetes mellitus type 2 with hyperglycemia Resume home insulin regimen Sliding scale insulin moderate dose Blood sugar check CBC and at bedtime Sugars currently controlled Essential hypertension, Blood pressure has been elevated throughout the admission, Resume home doses of his BP meds Follow-up BP COPD, hyperlipidemia, osteoarthritis Stable Resume home meds General Weakness: PT/OT Will likely need rehab DVT prophylaxis Heparin subcu Anticipated discharge 2-3 days
[2018-01-15] MEDS ORDERED: IV FLUID CONTINUATION 700 ML IV ONE (15:50)
[2018-01-15] MEDS: fentaNYL (PF) 50 MCG/ML 2 ML AMP IV ONE ×2 (16:06→16:36)
[2018-01-15] MEDS ORDERED: LIDOCAINE 1% INJ 10MG/ML (20 ML MDV) SQ ONE ×2 (16:06→16:37)
[2018-01-15] MEDS: LIDOCAINE 1% INJ 10MG/ML (20 ML MDV) SQ ONE ×2 (16:15→16:32)
[2018-01-15 17:18] LABS: Glucose,Whole Blood 171 mg/dL (75-99)
[2018-01-15] MEDS: GABAPENTIN 100 MG CAP PO SCH ×2 (17:59→22:55)
--- NOTE | 2018-01-15 18:08 | OP ---
OPERATIVE REPORT PREOPERATIVE DIAGNOSIS: Acute chronic failure. PROCEDURE: Attempted right internal jugular vein, ultrasound-guided, and placement of a 40 cm dialysis catheter, right femoral approach, ultrasound-guided. PROCEDURE: This patient has a history of chronic renal failure. 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 Right neck was prepped and draped in standard manner. Ultrasound-guided micropuncture was made in the right internal jugular vein. This patient has a pacemaker, and a biventricular ICD through the left subclavian vein was found. At this point there was concern that dialysis catheter would interfere with pacemaker, and we decided to go to the right femoral approach. Then the right groin was prepped and draped in standard sterile manner. Lidocaine 1% was infiltrated. Ultrasound-guided micropuncture was introduced in the right femoral vein. Micropuncture guide was passed and then 4-Armenian dilator was advanced on top of the guidewire. Then we made an incision on the anterior aspect of the thigh under local anesthesia. Catheter was passed through the tunnel and a small incision was made in the groin area. Dilator was advanced and sheath was advanced on top of the guidewire. Through the sheath we introduced the 40 cm permanent dialysis catheter, which was found to be in the inferior vena cava. There was free flow noted and it was flushed with heparin and saline and the incision was closed with Vicryl and secured with 4-0 nylon. The catheter was Hep- locked, dressing applied. Patient tolerated the procedure well. Sedation time was 47 minutes. MMODL / IJN: [id number] /
[2018-01-15 19:56] LABS: Glucose,Whole Blood 99 mg/dL (75-99)
--- NOTE | 2018-01-16 00:02 | PN ---
PROGRESS NOTE DATE OF SERVICE: 01/15/2018. REASON FOR FOLLOWUP: 1. Positive blood culture, more likely contamination. 2. Patient with fever, possible abdominal source. INTERVAL HISTORY: The patient has been afebrile. He is breathing comfortably. Denies significant chest pain. Occasional cough. Denies any abdominal pain. No nausea, vomiting or any diarrhea. EXAMINATION: Blood pressure 130/60 with a pulse of 67, temperature 98.2. He is 93% on room air. General description is an elderly male lying in bed in no distress. RESPIRATORY SYSTEM: Unlabored breathing. Clear to auscultation anteriorly. HEART: S1, S2. Regular rate and rhythm. ABDOMEN: Soft. No tenderness. LABS: Hemoglobin is 10.5, white count 12.3 with a BUN of 21, creatinine 0.81. Blood cultures were finalized with coagulase-negative Staph. DIAGNOSTIC IMPRESSION AND PLAN: Patient with fever with concern for possible abdominal source. The patient's amylase and lipase were elevated; however, CT abdomen and pelvis with oral contrast did not show any inflammation in the pancreatic head or body area. He did have blood cultures done which were showing gram-positive cocci; however, has been finalized with coagulase- negative Staphylococcus, likely secondary to contamination. Daptomycin has been discontinued. The patient is currently on Zosyn. Will continue for now, watching his clinical course closely. Continue supportive care. MMODL / IJN: [id number] /
[2018-01-16] MEDS: PIPERACILLIN-TAZOBACTAM 3.375 GM in DEXTROSE/WATER 1 50ML.BAG IVPB SCH ×2 (02:04→15:48)
[2018-01-16] MEDS: IPRATROPIUM-ALBUTEROL 3 ML NEB INHALATION SCH ×3 (07:22→21:01)
[2018-01-16 07:28] LABS: Glucose,Whole Blood 117 mg/dL (75-99)
[2018-01-16] MEDS ORDERED: HEPARIN SODIUM,PORCINE 5,000 UNIT/ML 1 ML VIAL ONE (07:54)
[2018-01-16 08:04] LABS: Calcium 8.7 mg/dL (8.4-10.2); Magnesium 2.3 mg/dL (1.6-2.3); Potassium 5.1 mmol/L (3.5-5.1)
[2018-01-16 08:09] LABS: Vancomycin,Random 11.6 ug/mL
[2018-01-16] MEDS: INSULIN ASPART 100 UNIT/ML 1 ML 10 ML VIAL SQ SCH ×4 (08:14→20:24)
[2018-01-16] MEDS: HEPARIN SODIUM,PORCINE 5,000 UNIT/ML 1 ML VIAL SQ SCH ×3 (08:21→15:53)
[2018-01-16] MEDS: INSULIN DETEMIR 100 UNIT/ML 10 ML VIAL SQ SCH (08:21)
[2018-01-16] MEDS: PANTOPRAZOLE 40 MG TABLET PO SCH (08:25)
[2018-01-16] MEDS: GABAPENTIN 100 MG CAP PO SCH ×3 (08:25→20:24)
--- NOTE | 2018-01-16 09:38 | P.PN ---
Subjective Patient is seen in follow-up for acute kidney injury. Renal function was worsening with creatinine up to 3.8 yesterday - underwent first treatment of hemodialysis yesterday. Urine output documented as 880 cc over the last 24 hours. Patient is not a reliable historian. Appetite is poor. He does have diastolic CHF with moderate pulmonary hypertension. He was seen while undergoing hemodialysis today. Vital signs are stable. General: The patient appeared well nourished and normally developed. HEENT: Head exam is unremarkable. Neck is without jugular venous distension. LUNGS: Breath sounds decreased. HEART: Rate and Rhythm are regular. First and second heart sounds normal. No murmurs, rubs or gallops. ABDOMEN: Abdominal exam reveals normal bowel sounds. Non-tender and non- distended. No evidence of peritonitis. EXTREMITITES: 1+ edema. Objective - Vital Signs Vital signs: Vital Signs Temp 98 F 01/16/18 07:00 Pulse 68 01/16/18 07:00 Resp 16 01/16/18 08:31 BP 146/74 01/16/18 07:00 Pulse Ox 100 01/16/18 07:00 Intake & Output 01/15/18 01/16/18 01/16/18 18:59 06:59 18:59 Intake Total 545 272 30 Output Total 200 680 80 Balance 345 -408 -50 Weight 102.5 kg 103.5 kg Intake: IV 275 30 Sodium Chloride 0.9% 1, 200 30 000 ml @ 10 mls/hr IV . Q24H REBA Rx#:[id number] Intake, IV Titration 50 32 Amount Piperacillin-Tazobactam 3 50 .375 gm In Dextrose/Water 1 50ml.bag @ 12.5 mls/hr IVPB Q8HR REBA Rx#: [id number] Sodium Chloride 0.9% 1, 32 000 ml @ 10 mls/hr IV . Q24H REBA Rx#:[id number] Oral 220 240 Output: Urine 200 680 80 Uretheral (Elise) 100 280 80 Other: Voiding Method Indwelling Catheter Indwelling Catheter # Voids 1 # Bowel Movements 0 - Labs CBC & Chem 7: 01/15/18 06:10 01/16/18 06:01 Labs: Abnormal Lab Results - Last 24 Hours (Table) 01/15/18 01/15/18 01/16/18 Range/Units 11:03 17:14 06:01 Sodium 134 L (137-145) mmol/L Chloride 93 L (98-107) mmol/L BUN 68 H (9-20) mg/dL Creatinine 3.70 H (0.66-1.25) mg/dL Glucose 105 H (74-99) mg/dL POC Glucose (mg/dL) 161 H 171 H (75-99) mg/dL 01/16/18 Range/Units 07:10 Sodium (137-145) mmol/L Chloride (98-107) mmol/L BUN (9-20) mg/dL Creatinine (0.66-1.25) mg/dL Glucose (74-99) mg/dL POC Glucose (mg/dL) 117 H (75-99) mg/dL Microbiology - Last 24 Hours (Table) 01/13/18 19:18 Blood Culture Gram Stain - Final Blood Blood Culture - Final Staphylococcus epidermidis 01/14/18 16:30 Blood Culture - Preliminary Blood No Growth after 24 hours 01/09/18 11:03 Blood Culture - Final Blood No Growth after 144 hours 01/09/18 11:17 Blood Culture - Final Blood No Growth after 144 hours Assessment and Plan Plan: Assessment: 1. Acute kidney injury secondary to ATN secondary to cardiorenal syndrome as well as underlying infection. Status post first treatment of hemodialysis on January 15. No proteinuria on UA. 2. Volume overload. 3. Gram-positive bacteremia. Blood culture positive for coag-negative staph - possible contamination. Off antibiotics. 4. Pancreatitis. Diet has been advanced. 5. Diastolic CHF with moderate pulmonary hypertension. 6. Hypervolemic hyponatremia. Improved postdialysis. 7. Benign hypertension. 8. Insulin-dependent diabetes mellitus. Plan: With worsening renal function and volume overload, he was started on hemodialysis on January 15. Currently seen while undergoing second treatment of dialysis. Continue Lasix 80 mg IV twice daily. Follow-up cultures. Antibiotics per infectious disease recommendations. Decreased dose of Neurontin to 100 mg 3 times daily. Will plan to hold dialysis over the weekend and monitor renal function closely.
[2018-01-16] MEDS: MAVYRET PO SCH (10:45)
[2018-01-16] MEDS: hydrALAZINE HCL 50 MG TAB PO SCH ×3 (11:13→20:25)
[2018-01-16] MEDS: MAGNESIUM OXIDE 400 MG TAB PO SCH (11:13)
[2018-01-16] MEDS: FUROSEMIDE 10 MG/ML 10 ML VIAL IV SCH ×2 (11:14→20:25)
[2018-01-16] MEDS: HYDROcodone/APAP 7.5-325MG 1 EACH TAB PO PRN ×2 (11:14→20:21)
[2018-01-16] MEDS: CARVEDILOL 12.5 MG TAB PO SCH ×2 (11:14→17:07)
[2018-01-16] MEDS: ISOSORBIDE MONONITRATE ER 60 MG TAB.ER.24H PO SCH (11:16)
[2018-01-16 11:27] LABS: Glucose,Whole Blood 135 mg/dL (75-99)
--- NOTE | 2018-01-16 11:50 | CONS ---
CONSULTATION This is a 72-year-old gentleman who has been admitted for medical condition and I was consulted for placement of urgent dialysis catheter and he has been vomiting. In the emergency room, his potassium was 5.9 and magnesium was 1 and an elevated troponin at 0.038 and also has a high BUN and creatinine. MEDICAL HISTORY: History of coronary artery disease, history of heart failure, history of COPD, history of diabetes mellitus, history of hyperlipidemia, hypertension, liver disease, osteoarthritis. 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 PHYSICAL EXAMINATION: On examination, patient was seen in his room. NECK: Supple. Trachea central. CHEST: Clear. ABDOMEN: Soft. Femoral pulses are present. PLAN: Placement of the dialysis catheter. Risks and complications have been discussed. MMODL / IJN: [id number] /
--- NOTE | 2018-01-16 12:51 | P.PN ---
Subjective Progress Note Date: 01/16/18 Patient laying comfortably in bed denies that he has any abdominal pain or nausea, apparently did not eat very much dinner but had a very strong appetite this morning at breakfast patient afebrile. Had first round of hemodialysis yesterday. approximately 800 mL of urine output in last 24 hours. Patient afebrile for 3 days Objective - Vital Signs Vital signs: Vital Signs Temp 98 F 01/16/18 07:00 Pulse 68 01/16/18 07:00 Resp 16 01/16/18 08:31 BP 146/74 01/16/18 07:00 Pulse Ox 100 01/16/18 07:00 Intake & Output 01/15/18 01/16/18 01/16/18 18:59 06:59 18:59 Intake Total 545 272 30 Output Total 200 680 80 Balance 345 -408 -50 Weight 102.5 kg 103.5 kg Intake: IV 275 30 Sodium Chloride 0.9% 1, 200 30 000 ml @ 10 mls/hr IV . Q24H REBA Rx#:[id number] Intake, IV Titration 50 32 Amount Piperacillin-Tazobactam 3 50 .375 gm In Dextrose/Water 1 50ml.bag @ 12.5 mls/hr IVPB Q8HR REBA Rx#: [id number] Sodium Chloride 0.9% 1, 32 000 ml @ 10 mls/hr IV . Q24H REBA Rx#:[id number] Oral 220 240 Output: Urine 200 680 80 Uretheral (Elise) 100 280 80 Other: Voiding Method Indwelling Catheter Indwelling Catheter # Voids 1 # Bowel Movements 0 - Exam Constitutional: No acute distress, conversant, pleasant Eyes: Anicteric sclerae, moist conjunctiva, no lid-lag, PERRLA ENMT: NC/AT,Oropharynx clear, no erythema, exudates Neck:Supple, FROM, no masses, or JVD, No carotid bruits; No thyromegaly Lungs: Clear to auscultation, Clear to percussion, Normal respiratory effort, no accessory muscle use Cardiovascular: Heart regular in rate and rhythm, No murmurs, gallops, or rubs no peripheral edema Abdominal: Soft Nontender, nom distended, no guarding, no rebound or rigidity, Normoactive bowel sounds No hepatomegaly, No splenomegaly, No palpable mass No abdominal wall hernia noted Skin: Normal temperature, tone, texture, turgor, No induration No subcutaneous nodules, No rash, lesions, No ulcers Extremities:No digital cyanosis No clubbing, Pedal pulses intact and symmetrical Radial pulses intact and symmetrical Normal gait and station, No calf tenderness, +2 pitting edema bilaterally Psychiatric: Alert and oriented to person, place and time, Appropriate affect Intact judgement Neuro: Muscles Strength 5/5 in all 4 extremities, Sensation to light touch grossly present throughout, Cranial nerves II-XII grossly intact. No focal sensory deficits - Labs CBC & Chem 7: 01/15/18 06:10 01/16/18 06:01 Labs: Abnormal Lab Results - Last 24 Hours (Table) 01/15/18 01/16/18 01/16/18 Range/Units 17:14 06:01 07:10 Sodium 134 L (137-145) mmol/L Chloride 93 L (98-107) mmol/L BUN 68 H (9-20) mg/dL Creatinine 3.70 H (0.66-1.25) mg/dL Glucose 105 H (74-99) mg/dL POC Glucose (mg/dL) 171 H 117 H (75-99) mg/dL 01/16/18 Range/Units 11:21 Sodium (137-145) mmol/L Chloride (98-107) mmol/L BUN (9-20) mg/dL Creatinine (0.66-1.25) mg/dL Glucose (74-99) mg/dL POC Glucose (mg/dL) 135 H (75-99) mg/dL Microbiology - Last 24 Hours (Table) 01/13/18 19:18 Blood Culture Gram Stain - Final Blood Blood Culture - Final Staphylococcus epidermidis 01/14/18 16:30 Blood Culture - Preliminary Blood No Growth after 24 hours 01/09/18 11:03 Blood Culture - Final Blood No Growth after 144 hours 01/09/18 11:17 Blood Culture - Final Blood No Growth after 144 hours Assessment and Plan Plan: Abdominal and chest pain likely acute pancreatitis, likely alcoholic Etiology unclear possibly ETOH related? Patient doesn't admit to drinking Ultrasound of the abdomen, nonrevealing Lipase trended down patient currently denies abdominal pain Restarted on clear liquids and advanced to diabetic diet Recurrent fevers possibly secondary to pneumonia Patient afebrile for 3 days Blood cultures suggesting contaminant growing staph epidermidis vancomycin discontinued Chest x-ray showed possible atelectasis versus infiltrate. Because patient wasn 't having shortness of breath and leukocytosis he was not treated with antibiotics. Could be secondary to acute pancreatitis Tylenol when necessary for fever Appreciate ID recommendations patient currently on IV Zosyn Acute renal failure with hyperkalemia Creatinine Worse today. Patient is volume overloaded again. Poor response to IV Lasix, Continue to hold LUCINDA inhibitor Recheck electrolytes and renal function in a.m. Vascular to place a tunneled dialysis catheter placement with plans for hemodialysis today or tomorrow Diastolic CHF with Elevated trops Likely non-specific, sec to above, seen by cardiology Echo checked, positive for moderate pulm hypertension, no motion abnormalities to suggest acute event. Continue Coreg, hold LUCINDA inhibitor because of renal failure Diabetes mellitus type 2 with hyperglycemia Resume home insulin regimen Sliding scale insulin moderate dose Blood sugar check CBC and at bedtime Sugars currently controlled Essential hypertension, Blood pressure has been elevated throughout the admission, Resume home doses of his BP meds Follow-up BP COPD, hyperlipidemia, osteoarthritis Stable Resume home meds General Weakness: PT/OT Will likely need rehab DVT prophylaxis Heparin subcu Disposition Plans to hold dialysis over the weekend and reassess his electrolytes and kidney function over the weekend Anticipated discharge 2-3 days
[2018-01-16 16:53] LABS: Glucose,Whole Blood 110 mg/dL (75-99)
[2018-01-16 19:55] LABS: Glucose,Whole Blood 181 mg/dL (75-99)
--- NOTE | 2018-01-16 23:48 | PN ---
PROGRESS NOTE DATE OF SERVICE: 01/16/2018. REASON FOR FOLLOWUP: 1. Fever, possible abdominal source. 2. Positive blood culture, more likely contamination. INTERVAL HISTORY: The patient is afebrile. He has been breathing comfortably. Denies having any chest pain or shortness of breath or cough. No abdominal pain, nausea, vomiting or any diarrhea. EXAMINATION: Blood pressure 136/73, pulse of 70, temperature 98.1. He is 98% on 4L nasal cannula. General description is an elderly male lying in bed in no distress. RESPIRATORY SYSTEM: Unlabored breathing. Clear to auscultation anteriorly HEART: S1, S2. Regular. ABDOMEN: Soft, no tenderness. LABS: Creatinine 3.70. Blood culture with Staph epi. Repeat has been negative. DIAGNOSTIC IMPRESSION AND PLAN: 1. Patient with a positive blood culture, Staph epidermidis contamination, currently off daptomycin. 2. Patient with a fever with concern for possible abdominal source. The patient currently on Zosyn, transition to oral on discharge. Continue with supportive care. MMODL / IJN: [id number] /
[2018-01-17] MEDS: HEPARIN SODIUM,PORCINE 5,000 UNIT/ML 1 ML VIAL SQ SCH ×3 (00:16→17:13)
[2018-01-17] MEDS: SODIUM CHLORIDE 0.9% 1,000 ML IV SCH ×2 (00:48→00:52)
[2018-01-17] MEDS: PIPERACILLIN-TAZOBACTAM 3.375 GM in DEXTROSE/WATER 1 50ML.BAG IVPB SCH ×2 (00:50→13:07)
[2018-01-17 06:53] LABS: Glucose,Whole Blood 127 mg/dL (75-99)
[2018-01-17] MEDS: IPRATROPIUM-ALBUTEROL 3 ML NEB INHALATION SCH ×3 (07:56→19:20)
[2018-01-17] MEDS: INSULIN ASPART 100 UNIT/ML 1 ML 10 ML VIAL SQ SCH ×4 (08:24→20:50)
[2018-01-17] MEDS: MAVYRET PO SCH (08:26)
[2018-01-17] MEDS: HYDROcodone/APAP 7.5-325MG 1 EACH TAB PO PRN (08:30)
[2018-01-17] MEDS: ISOSORBIDE MONONITRATE ER 60 MG TAB.ER.24H PO SCH (08:31)
[2018-01-17] MEDS: hydrALAZINE HCL 50 MG TAB PO SCH ×3 (08:31→20:50)
[2018-01-17] MEDS: PANTOPRAZOLE 40 MG TABLET PO SCH (08:31)
[2018-01-17] MEDS: MAGNESIUM OXIDE 400 MG TAB PO SCH (08:31)
[2018-01-17] MEDS: CARVEDILOL 12.5 MG TAB PO SCH ×2 (08:31→17:16)
[2018-01-17] MEDS: FUROSEMIDE 10 MG/ML 10 ML VIAL IV SCH ×2 (08:31→21:07)
[2018-01-17] MEDS: INSULIN DETEMIR 100 UNIT/ML 10 ML VIAL SQ SCH (08:32)
[2018-01-17] MEDS: GABAPENTIN 100 MG CAP PO SCH ×3 (08:32→20:50)
--- NOTE | 2018-01-17 09:54 | P.PN ---
Subjective Progress Note Date: 01/17/18 Patient laying comfortably in bed denies that he has any abdominal pain or nausea, apparently did not eat very much dinner but had a very strong appetite this morning at breakfast patient afebrile. Had second round of hemodialysis yesterday. approximately 1000 mlL of urine output overnight, afebrile for 3 days Objective - Vital Signs Vital signs: Vital Signs Temp 98.5 F 01/17/18 07:00 Pulse 69 01/17/18 08:06 Resp 12 01/17/18 07:00 BP 160/69 01/17/18 07:00 Pulse Ox 99 01/17/18 07:56 Intake & Output 01/16/18 01/17/18 01/17/18 18:59 06:59 18:59 Intake Total 30 540 Output Total 200 130 Balance -170 410 Weight 103.5 kg Intake: IV 30 90 Sodium Chloride 0.9% 1, 30 90 000 ml @ 10 mls/hr IV . Q24H REBA Rx#:[id number] Intake, IV Titration 50 Amount Piperacillin-Tazobactam 3 50 .375 gm In Dextrose/Water 1 50ml.bag @ 12.5 mls/hr IVPB Q12H REBA Rx#: [id number] Oral 400 Output: Urine 200 130 Uretheral (Elise) 80 50 Other: Voiding Method Indwelling Catheter Indwelling Catheter # Voids 1 # Bowel Movements 0 - Exam Constitutional: No acute distress, conversant, pleasant Eyes: Anicteric sclerae, moist conjunctiva, no lid-lag, PERRLA ENMT: NC/AT,Oropharynx clear, no erythema, exudates Neck:Supple, FROM, no masses, or JVD, No carotid bruits; No thyromegaly Lungs: Clear to auscultation, Clear to percussion, Normal respiratory effort, no accessory muscle use Cardiovascular: Heart regular in rate and rhythm, No murmurs, gallops, or rubs no peripheral edema Abdominal: Soft Nontender, nom distended, no guarding, no rebound or rigidity, Normoactive bowel sounds No hepatomegaly, No splenomegaly, No palpable mass No abdominal wall hernia noted Skin: Normal temperature, tone, texture, turgor, No induration No subcutaneous nodules, No rash, lesions, No ulcers Extremities:No digital cyanosis No clubbing, Pedal pulses intact and symmetrical Radial pulses intact and symmetrical Normal gait and station, No calf tenderness, +1 pitting edema bilaterally Psychiatric: Alert and oriented to person, place and time, Appropriate affect Intact judgement Neuro: Muscles Strength 5/5 in all 4 extremities, Sensation to light touch grossly present throughout, Cranial nerves II-XII grossly intact. No focal sensory deficits - Labs CBC & Chem 7: 01/15/18 06:10 01/16/18 06:01 Labs: Abnormal Lab Results - Last 24 Hours (Table) 01/16/18 01/16/18 01/16/18 Range/Units 11:21 16:48 19:51 POC Glucose (mg/dL) 135 H 110 H 181 H (75-99) mg/dL 01/17/18 Range/Units 06:47 POC Glucose (mg/dL) 127 H (75-99) mg/dL Microbiology - Last 24 Hours (Table) 01/14/18 16:30 Blood Culture - Preliminary Blood No Growth after 48 hours 01/13/18 19:18 Blood Culture Gram Stain - Final Blood Blood Culture - Final Staphylococcus epidermidis Assessment and Plan Plan: Abdominal and chest pain likely acute pancreatitis, likely alcoholic Etiology unclear possibly ETOH related? Patient doesn't admit to drinking Ultrasound of the abdomen, nonrevealing Lipase trended down patient currently denies abdominal pain Restarted on clear liquids and advanced to diabetic diet Recurrent fevers possibly secondary to pneumonia Patient afebrile for 3 days Blood cultures suggesting contaminant growing staph epidermidis vancomycin discontinued Chest x-ray showed possible atelectasis versus infiltrate. Because patient wasn 't having shortness of breath and leukocytosis he was not treated with antibiotics. Could be secondary to acute pancreatitis Tylenol when necessary for fever Appreciate ID recommendations patient currently on IV Zosyn Acute renal failure with hyperkalemia Creatinine improved today Poor response to IV Lasix, Continue to hold ULCINDA inhibitor Recheck electrolytes and renal function in a.m. Vascular to place a tunneled dialysis catheter placement with plans for hemodialysis today or tomorrow Diastolic CHF with Elevated trops Likely non-specific, sec to above, seen by cardiology Echo checked, positive for moderate pulm hypertension, no motion abnormalities to suggest acute event. Continue Coreg, hold LUCINDA inhibitor because of renal failure Diabetes mellitus type 2 with hyperglycemia Resume home insulin regimen Sliding scale insulin moderate dose Blood sugar check CBC and at bedtime Sugars currently controlled Essential hypertension, Blood pressure has been elevated throughout the admission, Resume home doses of his BP meds Follow-up BP COPD, hyperlipidemia, osteoarthritis Stable Resume home meds General Weakness: PT/OT Will likely need rehab DVT prophylaxis Heparin subcu Disposition Plans to hold dialysis over the weekend and reassess his electrolytes and kidney function over the weekend Anticipated discharge 2-3 days
[2018-01-17 11:35] LABS: Glucose,Whole Blood 260 mg/dL (75-99)
--- NOTE | 2018-01-17 13:08 | P.PN ---
Subjective Progress Note Date: 01/17/18 Principal diagnosis: This is a 72-year-old male seen in consultation because of acute kidney injury, ATN with hemodialysis dependent. First dialysis was on 75 and the second one yesterday on 01/16/2018. He has a femoral catheter in his right groin. He looks somewhat ill and has nasal oxygen. He denies shortness of breath. His appetite is fair. He is profoundly weak. He wants to be discharged and says his vertigo home today again's medical advice. Objective - Vital Signs Vital signs: Vital Signs Temp 98.5 F 01/17/18 07:00 Pulse 69 01/17/18 08:06 Resp 12 01/17/18 07:00 BP 160/69 01/17/18 07:00 Pulse Ox 99 01/17/18 07:56 Intake & Output 01/16/18 01/17/18 01/17/18 18:59 06:59 18:59 Intake Total 30 540 Output Total 200 130 Balance -170 410 Weight 103.5 kg Intake: IV 30 90 Sodium Chloride 0.9% 1, 30 90 000 ml @ 10 mls/hr IV . Q24H REBA Rx#:[id number] Intake, IV Titration 50 Amount Piperacillin-Tazobactam 3 50 .375 gm In Dextrose/Water 1 50ml.bag @ 12.5 mls/hr IVPB Q12H REBA Rx#: [id number] Oral 400 Output: Urine 200 130 Uretheral (Elise) 80 50 Other: Voiding Method Indwelling Catheter Indwelling Catheter # Voids 1 # Bowel Movements 0 On examination he is on nasal cannula awake alert oriented HEENT exam no JVP neck is supple no facial asymmetry Lungs are clear to auscultation and fair air entry bilaterally. Heart sounds are unremarkable for any murmur rub gallop Abdomen is soft obese protuberant No masses felt. Extremity exam was moderate edema up to the thighs. Warm to touch. Neurologically awake alert but profoundly weak seems to be oriented 3. Is somewhat hostile. Blood agree to be examined. Seems like he wants to go home.. - Labs CBC & Chem 7: 01/15/18 06:10 01/16/18 06:01 Labs: Abnormal Lab Results - Last 24 Hours (Table) 01/16/18 01/16/18 01/17/18 Range/Units 16:48 19:51 06:47 POC Glucose (mg/dL) 110 H 181 H 127 H (75-99) mg/dL 01/17/18 Range/Units 11:30 POC Glucose (mg/dL) 260 H (75-99) mg/dL Microbiology - Last 24 Hours (Table) 01/14/18 16:30 Blood Culture - Preliminary Blood No Growth after 48 hours 01/13/18 19:18 Blood Culture Gram Stain - Final Blood Blood Culture - Final Staphylococcus epidermidis Assessment and Plan Assessment: Impression 1. Hemodialysis dependent ATN from prerenal from cardiorenal syndrome on dialysis well Cameron catheter in the right groin. First dialysis was on 2079 and second one was yesterday. 2. Remains volume overloaded. He has edema. 3. Staph epidermidis bacteremia possibly contaminant. 4. Diastolic dysfunction. Ejection fraction is 55% by echocardiogram. 5. Diabetes mellitus. 6. Pancreatitis, pain-free and currently on regular diet. 7. Hypertension. Recommendation. 1. Will maintain dialysis schedule on Friday. 2. Maintain aggressive diuresis, currently on IV Lasix 80 twice a day 3. Watch intake and output and labs closely.
[2018-01-17 16:46] LABS: Glucose,Whole Blood 203 mg/dL (75-99)
[2018-01-17] MEDS ORDERED: FUROSEMIDE 10 MG/ML 10 ML VIAL IV STA (17:36)
--- NOTE | 2018-01-17 18:04 | PN ---
PROGRESS NOTE DATE OF SERVICE: 01/17/2018. REASON FOR FOLLOWUP: Fever and positive blood culture. INTERVAL HISTORY: The patient's overall fever pattern has improved with no fever recorded in last 3-4 days. The patient has been breathing comfortably. Denies any chest pain. No cough. No abdominal pain or any diarrhea. EXAMINATION: Blood pressure 124/64 with a pulse of 69, temperature 98.2. He is 98% on room air. General description is an elderly male lying in bed in no distress. RESPIRATORY SYSTEM: Unlabored breathing. Clear to auscultation anteriorly. HEART: S1, S2. Regular rate and rhythm. ABDOMEN: Soft, no tenderness. LABS: Blood culture repeat 01/14 has been negative. DIAGNOSTIC IMPRESSION AND PLAN: 1. Patient with a positive blood culture, more likely skin contamination. Followup blood culture negative. No need for further workup for the same. 2. The patient with fever with a question of possible abdominal source. Currently on Zosyn. Transition to oral antibiotic on discharge. Continue with supportive care. MMODL / IJN: [id number] /
[2018-01-17 19:24] LABS: Albumin 3.1 g/dL (3.5-5.0); Calcium 8.4 mg/dL (8.4-10.2); Potassium 4.7 mmol/L (3.5-5.1); Total Bilirubin 0.8 mg/dL (0.2-1.3); Total Protein 6.7 g/dL (6.3-8.2)
[2018-01-17 19:50] LABS: Glucose,Whole Blood 224 mg/dL (75-99)
[2018-01-18] MEDS: HEPARIN SODIUM,PORCINE 5,000 UNIT/ML 1 ML VIAL SQ SCH ×3 (01:37→17:40)
[2018-01-18] MEDS: PIPERACILLIN-TAZOBACTAM 3.375 GM in DEXTROSE/WATER 1 50ML.BAG IVPB SCH ×2 (01:37→13:08)
[2018-01-18] MEDS: SODIUM CHLORIDE 0.9% 1,000 ML IV SCH (01:47)
[2018-01-18 06:49] LABS: Glucose,Whole Blood 183 mg/dL (75-99)
[2018-01-18] MEDS: CARVEDILOL 12.5 MG TAB PO SCH ×2 (07:21→17:40)
[2018-01-18] MEDS: INSULIN ASPART 100 UNIT/ML 1 ML 10 ML VIAL SQ SCH ×4 (07:21→20:45)
[2018-01-18] MEDS: PANTOPRAZOLE 40 MG TABLET PO SCH (07:21)
[2018-01-18] MEDS: IPRATROPIUM-ALBUTEROL 3 ML NEB INHALATION SCH ×3 (08:07→18:59)
[2018-01-18] MEDS: MAVYRET PO SCH (08:39)
[2018-01-18] MEDS: GABAPENTIN 100 MG CAP PO SCH ×3 (08:39→20:45)
[2018-01-18] MEDS: MAGNESIUM OXIDE 400 MG TAB PO SCH (08:39)
[2018-01-18] MEDS: ISOSORBIDE MONONITRATE ER 60 MG TAB.ER.24H PO SCH (08:39)
[2018-01-18] MEDS: hydrALAZINE HCL 50 MG TAB PO SCH ×3 (08:39→20:45)
[2018-01-18] MEDS: FUROSEMIDE 10 MG/ML 10 ML VIAL IV SCH ×2 (08:40→20:45)
[2018-01-18] MEDS: INSULIN DETEMIR 100 UNIT/ML 10 ML VIAL SQ SCH (08:40)
--- NOTE | 2018-01-18 10:34 | P.PN ---
Subjective Progress Note Date: 01/18/18 Patient laying comfortably in bed denies that he has any abdominal pain or nausea, apparently did not eat very much dinner but had a very strong appetite this morning at breakfast patient afebrile. Had second round of hemodialysis yesterday. approximately 100 mlL of urine output overnight, afebrile for 3 days. Patient denies being short of air Objective - Vital Signs Vital signs: Vital Signs Temp 97.6 F 01/18/18 06:53 Pulse 73 01/18/18 08:16 Resp 16 01/18/18 07:25 BP 150/68 01/18/18 06:53 Pulse Ox 98 01/18/18 08:07 Intake & Output 01/17/18 01/18/18 01/18/18 18:59 06:59 18:59 Intake Total 80 455 Output Total 50 100 Balance 30 355 Weight 106.5 kg Intake: IV 80 55 Sodium Chloride 0.9% 1, 80 55 000 ml @ 10 mls/hr IV . Q24H [facility] Rx#:[id number] Intake, IV Titration 50 Amount Sodium Chloride 0.9% 1, 50 000 ml @ 10 mls/hr IV . Q24H [facility] Rx#:[id number] Oral 350 Output: Urine 50 100 Other: Voiding Method Indwelling Catheter Indwelling Catheter - Exam Constitutional: No acute distress, conversant, pleasant Eyes: Anicteric sclerae, moist conjunctiva, no lid-lag, PERRLA ENMT: NC/AT,Oropharynx clear, no erythema, exudates Neck:Supple, FROM, no masses, or JVD, No carotid bruits; No thyromegaly Lungs: Clear to auscultation, Clear to percussion, Normal respiratory effort, no accessory muscle use Cardiovascular: Heart regular in rate and rhythm, No murmurs, gallops, or rubs no peripheral edema Abdominal: Soft Nontender, nom distended, no guarding, no rebound or rigidity, Normoactive bowel sounds No hepatomegaly, No splenomegaly, No palpable mass No abdominal wall hernia noted Skin: Normal temperature, tone, texture, turgor, No induration No subcutaneous nodules, No rash, lesions, No ulcers Extremities:No digital cyanosis No clubbing, Pedal pulses intact and symmetrical Radial pulses intact and symmetrical Normal gait and station, No calf tenderness, +1 pitting edema bilaterally Psychiatric: Alert and oriented to person, place and time, Appropriate affect Intact judgement Neuro: Muscles Strength 5/5 in all 4 extremities, Sensation to light touch grossly present throughout, Cranial nerves II-XII grossly intact. No focal sensory deficits - Labs CBC & Chem 7: 01/15/18 06:10 01/17/18 18:04 Labs: Abnormal Lab Results - Last 24 Hours (Table) 01/17/18 01/17/18 01/17/18 Range/Units 11:30 16:43 18:04 Sodium 131 L (137-145) mmol/L Chloride 92 L (98-107) mmol/L BUN 52 H (9-20) mg/dL Creatinine 4.40 H (0.66-1.25) mg/dL Glucose 188 H (74-99) mg/dL POC Glucose (mg/dL) 260 H 203 H (75-99) mg/dL Alkaline Phosphatase 193 H (38-126) U/L Albumin 3.1 L (3.5-5.0) g/dL 01/17/18 01/18/18 Range/Units 19:46 06:45 Sodium (137-145) mmol/L Chloride (98-107) mmol/L BUN (9-20) mg/dL Creatinine (0.66-1.25) mg/dL Glucose (74-99) mg/dL POC Glucose (mg/dL) 224 H 183 H (75-99) mg/dL Alkaline Phosphatase (38-126) U/L Albumin (3.5-5.0) g/dL Microbiology - Last 24 Hours (Table) 01/14/18 16:30 Blood Culture - Preliminary Blood No Growth after 72 hours Assessment and Plan Plan: Abdominal and chest pain likely acute pancreatitis, likely alcoholic Etiology unclear possibly ETOH related? Patient doesn't admit to drinking Ultrasound of the abdomen, nonrevealing Lipase trended down patient currently denies abdominal pain Restarted on clear liquids and advanced to diabetic diet Recurrent fevers possibly secondary to pneumonia Patient afebrile for several days Blood cultures suggesting contaminant growing staph epidermidis vancomycin discontinued repeat blood cultures have been negative Chest x-ray showed possible atelectasis versus infiltrate. Because patient wasn 't having shortness of breath and leukocytosis he was not treated with antibiotics. Could be secondary to acute pancreatitis Tylenol when necessary for fever Appreciate ID recommendations patient currently on IV Zosyn Acute renal failure with hyperkalemia Creatinine improved today Poor response to IV Lasix, Continue to hold LUCINDA inhibitor Recheck electrolytes and renal function in a.m. Vascular to place a tunneled dialysis catheter placement with plans for hemodialysis today or tomorrow Diastolic CHF with Elevated trops Likely non-specific, sec to above, seen by cardiology Echo checked, positive for moderate pulm hypertension, no motion abnormalities to suggest acute event. Continue Coreg, hold LUCINDA inhibitor because of renal failure Diabetes mellitus type 2 with hyperglycemia Resume home insulin regimen Sliding scale insulin moderate dose Blood sugar check CBC and at bedtime Sugars currently controlled Essential hypertension, Blood pressure has been elevated throughout the admission, Resume home doses of his BP meds Follow-up BP COPD, hyperlipidemia, osteoarthritis Stable Resume home meds General Weakness: PT/OT Will likely need rehab DVT prophylaxis Heparin subcu Disposition Plans to hold dialysis over the weekend and reassess his electrolytes and kidney function over the weekend Anticipated discharge 1-2 days
[2018-01-18 11:41] LABS: Glucose,Whole Blood 218 mg/dL (75-99)
--- NOTE | 2018-01-18 14:26 | P.PN ---
Subjective Progress Note Date: 01/18/18 Principal diagnosis: This is a 72-year-old male seen in consultation because of acute kidney injury, ATN with hemodialysis dependent. First dialysis was on 01/15/2018 and the second one was day before yesterday on 01/16/2018. He has a femoral catheter in his right groin. He looks somewhat ill and has nasal oxygen. He denies shortness of breath. His appetite is fair. He is profoundly weak. His urine output is minimal, 150 mL for the last 24 hours. He is grossly edematous. Is on Lasix 80 every 12 hours Objective - Vital Signs Vital signs: Vital Signs Temp 97.6 F 01/18/18 06:53 Pulse 73 01/18/18 08:16 Resp 16 01/18/18 07:25 BP 150/68 01/18/18 06:53 Pulse Ox 98 01/18/18 08:07 Intake & Output 01/17/18 01/18/18 01/18/18 18:59 06:59 18:59 Intake Total 80 455 70 Output Total 50 100 Balance 30 355 70 Weight 106.5 kg Intake: IV 80 55 70 Sodium Chloride 0.9% 1, 80 55 70 000 ml @ 10 mls/hr IV . Q24H [facility] Rx#:[id number] Intake, IV Titration 50 Amount Sodium Chloride 0.9% 1, 50 000 ml @ 10 mls/hr IV . Q24H [facility] Rx#:[id number] Oral 350 Output: Urine 50 100 Other: Voiding Method Indwelling Catheter Indwelling Catheter On examination he looks ill, HEENT exam no JVP neck is supple no facial asymmetry Lungs are clear to auscultation but his air entry is less than optimal. Heart sounds are unremarkable for any murmur rub gallop Abdomen is slightly distended protuberant and nontender no masses felt Extreme exam was 2+ edema Neurologically awake alert oriented 3. No asterixis. - Labs CBC & Chem 7: 01/15/18 06:10 01/17/18 18:04 Labs: Abnormal Lab Results - Last 24 Hours (Table) 01/17/18 01/17/18 01/17/18 Range/Units 16:43 18:04 19:46 Sodium 131 L (137-145) mmol/L Chloride 92 L (98-107) mmol/L BUN 52 H (9-20) mg/dL Creatinine 4.40 H (0.66-1.25) mg/dL Glucose 188 H (74-99) mg/dL POC Glucose (mg/dL) 203 H 224 H (75-99) mg/dL Alkaline Phosphatase 193 H (38-126) U/L Albumin 3.1 L (3.5-5.0) g/dL 01/18/18 01/18/18 Range/Units 06:45 11:23 Sodium (137-145) mmol/L Chloride (98-107) mmol/L BUN (9-20) mg/dL Creatinine (0.66-1.25) mg/dL Glucose (74-99) mg/dL POC Glucose (mg/dL) 183 H 218 H (75-99) mg/dL Alkaline Phosphatase (38-126) U/L Albumin (3.5-5.0) g/dL Microbiology - Last 24 Hours (Table) 01/14/18 16:30 Blood Culture - Preliminary Blood No Growth after 72 hours Assessment and Plan Assessment: Impression 1. Hemodialysis dependent ATN from prerenal from cardiorenal syndrome on dialysis with Cameron catheter in the right groin. First dialysis was on and second one was 01/16/2018. 2. Remains volume overloaded. He has 2+ edema. 3. Staph epidermidis bacteremia possibly contaminant. 4. Diastolic dysfunction. Ejection fraction is 55% by echocardiogram. 5. Diabetes mellitus. 6. Pancreatitis, pain-free and currently on regular diet. 7. Hypertension. Recommendation. 1. Will maintain dialysis schedule on Friday. 2. Maintain aggressive diuresis, currently on IV Lasix 80 twice a day 3. Watch intake and output and labs closely.
[2018-01-18] MEDS: HYDROcodone/APAP 7.5-325MG 1 EACH TAB PO PRN (14:42)
[2018-01-18 17:01] LABS: Glucose,Whole Blood 205 mg/dL (75-99)
--- NOTE | 2018-01-18 18:41 | PN ---
PROGRESS NOTE DATE OF SERVICE: 01/18/2018. REASON FOR FOLLOWUP: 1. Positive blood culture. 2. Patient with fever, possible abdominal source. INTERVAL HISTORY: The patient is currently afebrile, has been breathing comfortably. Denies having any chest pain or cough. No abdominal pain, nausea, vomiting. Tolerating his diet. No diarrhea. EXAMINATION: Blood pressure 169/59 with a pulse of 68. Temperature 97.8. He is 97% on 2 L nasal cannula. General description is an elderly male lying in bed in no distress. RESPIRATORY SYSTEM: Unlabored breathing. Clear to auscultation anteriorly. HEART: S1, S2. Regular rate and rhythm. ABDOMEN: Soft, no tenderness. No guarding or rigidity. LABS: BUN of 52, creatinine 4.40. Blood culture repeat 01/14 has been negative. DIAGNOSTIC IMPRESSION AND PLAN: 1. Patient positive blood culture, Staph epi likely contamination. Repeat blood culture negative. Currently off daptomycin. 2. Patient with fever with concern for possible abdominal source and the patient did have an elevated amylase, lipase. He did have CT x2 that did not show any significant inflammation. Currently on Zosyn that will be transitioned to a short course of oral Augmentin on discharge to finish the course of therapy. Continue supportive care. MMODL / IJN: [id number] /
[2018-01-18 20:03] LABS: Glucose,Whole Blood 220 mg/dL (75-99)
[2018-01-19] MEDS: HEPARIN SODIUM,PORCINE 5,000 UNIT/ML 1 ML VIAL SQ SCH ×3 (00:05→16:28)
[2018-01-19] MEDS: PIPERACILLIN-TAZOBACTAM 3.375 GM in DEXTROSE/WATER 1 50ML.BAG IVPB SCH ×2 (00:05→14:45)
[2018-01-19] MEDS: SODIUM CHLORIDE 0.9% 1,000 ML IV SCH (00:46)
[2018-01-19 06:59] LABS: Glucose,Whole Blood 186 mg/dL (75-99)
[2018-01-19 07:32] LABS: Basophils % (A) 1 %; Eosinophils # (A) 0.2 k/uL (0-0.7); Eosinophils % (A) 3 %; HCT 29.4 % (39.0-53.0); HGB 9.1 gm/dL (13.0-17.5); Lymphocytes # (A) 1.2 k/uL (1.0-4.8); Lymphocytes % (A) 13 %; MCH 27.9 pg (25.0-35.0); MCHC 31.1 g/dL (31.0-37.0); MCV 89.7 fL (80.0-100.0); Mean Platelet Volume 10.5; Monocytes # (A) 0.6 k/uL (0-1.0); Monocytes % (A) 7 %; Neutrophils # (A) 6.9 k/uL (1.3-7.7); Neutrophils % (A) 75 %; Platelet Count 216 k/uL (150-450); RBC 3.28 m/uL (4.30-5.90); RDW 13.8 % (11.5-15.5); WBC 9.1 k/uL (3.8-10.6)
[2018-01-19 07:48] LABS: Albumin 3.1 g/dL (3.5-5.0); Calcium 8.4 mg/dL (8.4-10.2); Potassium 4.9 mmol/L (3.5-5.1); Total Bilirubin 0.7 mg/dL (0.2-1.3); Total Protein 6.6 g/dL (6.3-8.2)
[2018-01-19] MEDS: IPRATROPIUM-ALBUTEROL 3 ML NEB INHALATION SCH ×3 (08:11→20:40)
[2018-01-19] MEDS: INSULIN ASPART 100 UNIT/ML 1 ML 10 ML VIAL SQ SCH ×4 (08:57→20:32)
[2018-01-19] MEDS: INSULIN DETEMIR 100 UNIT/ML 10 ML VIAL SQ SCH (08:57)
[2018-01-19] MEDS: GABAPENTIN 100 MG CAP PO SCH ×3 (08:58→20:32)
[2018-01-19] MEDS: FUROSEMIDE 10 MG/ML 10 ML VIAL IV SCH ×2 (08:58→20:31)
[2018-01-19] MEDS: CARVEDILOL 12.5 MG TAB PO SCH ×2 (09:09→17:44)
[2018-01-19] MEDS: PANTOPRAZOLE 40 MG TABLET PO SCH (09:10)
[2018-01-19] MEDS: ISOSORBIDE MONONITRATE ER 60 MG TAB.ER.24H PO SCH (09:11)
[2018-01-19] MEDS: hydrALAZINE HCL 50 MG TAB PO SCH ×3 (09:11→20:32)
[2018-01-19] MEDS: MAVYRET PO SCH (09:11)
[2018-01-19] MEDS: MAGNESIUM OXIDE 400 MG TAB PO SCH (09:11)
[2018-01-19 11:25] LABS: Glucose,Whole Blood 134 mg/dL (75-99)
--- NOTE | 2018-01-19 12:47 | IR ---
Fluoroscopy HISTORY: Dialysis catheter placement 2.2 minutes fluoroscopy time supplied to the referring clinician. 392 intraoperative C-arm images do cument the procedure. See dictated report from vascular surgery.
--- NOTE | 2018-01-19 12:51 | P.PN ---
Subjective Progress Note Date: 01/19/18 Principal diagnosis: chest pain patient is a 72-year-old -[place] male with a past medical history ofcoronary artery disease, systolic congestive heart failure, prior pancreatitis , multiple other medical comorbidities who presented to the emergency department with complaints of abdominal and chest pain. In the emergency department he was found to have a potassium of 5.9, low magnesium, and an elevated troponin of 0.38. He was admitted for further monitoring of his acute hyperkalemia, elevated troponin, and abdominal pain.he was started on IV fluids and nothing by mouth. He was seen by GI and diagnosed with acute pancreatitis secondary to alcoholic hepatitis. He was seen by cardiology and his elevated troponins were deemed likely secondary to renal insufficiency. He was diagnosed with diastolic congestive heart failure with acute exacerbation and had been on Lasix. He was seen by nephrology and diagnosed with a I likely secondary to ATN and hypercalcemia. He had been taken off of his angiotensin receptor chasidy. He was started on IV Lasix. His IV Lasix did not help with diuresis and he was ultimately started on a Lasix drip. His diet was slowly advanced for pancreatitis. He did start spiking fever and was seen by infectious disease on 05/16. He was started on Zosyn and a repeat CT abdomen and pelvis was ordered. CT abdomen and pelvis showed an infiltrate at the left lung base similar to old exam but no acute abdominal abnormality. One blood culture came back with staph epidermidis and was determined to be a likely contaminant. Chest x-ray and urinalysis were negative. His fevers were thought to be secondary to his acute pancreatitis. He continued to have worsening fluid overload as well as worsening renal function despite adjustments in his IV Lasix. He was subsequently started on hemodialysis on January 15 after a Cameron cath was placed in the right groin. His fevers abated. They attempted to hold dialysis and his creatinine increased again. Plans are for outpatient dialysis. Patient seen and examined at bedside. No improvement in his shortness of breath , still with significant edema. Feeling tired and fatigued. No chest discomfort. Denies any nausea but still with low appetite. Agreeable to go to [facility] for rehabilitation. Objective - Vital Signs Vital signs: Vital Signs Temp 97.8 F 01/19/18 07:08 Pulse 67 01/19/18 07:08 Resp 18 01/19/18 07:08 BP 181/71 07/09/18 07:08 Pulse Ox 99 01/19/18 07:08 Intake & Output 01/18/18 01/19/18 01/19/18 18:59 06:59 18:59 Intake Total 70 155 25 Output Total 90 50 Balance -20 105 25 Weight 107.8 kg Intake: IV 70 105 Sodium Chloride 0.9% 1, 70 105 000 ml @ 10 mls/hr IV . Q24H [facility] Rx#:[id number] Intake, IV Titration 50 Amount Piperacillin-Tazobactam 3 50 .375 gm In Dextrose/Water 1 50ml.bag @ 12.5 mls/hr IVPB Q12H [facility] Rx#: [id number] Oral 25 Output: Urine 90 50 Other: Voiding Method Indwelling Catheter Indwelling Catheter - Exam General: non toxic, no distress, appears at stated age Derm: warm, moist Head: atraumatic, normocephalic, symmetric Eyes: EOMI, no lid lag, anicteric sclera Mouth: no lip lesion, mucus membranes moist Cardiovascular: S1S2 reg, no murmur, positive posterior tibial pulse bilateral, Lungs: Decreased breath sounds bilateral bases, no rhonchi, no rales , no accessory muscle use Abdominal: soft, nontender to palpation, no guarding, no appreciable organomegaly Ext: no gross muscle atrophy, diffuse anasarca, no contractures Neuro: CN II-XI grossly intact, no focal neuro deficits Psych: Alert, oriented, appropriate affect - Labs CBC & Chem 7: 01/19/18 07:07 01/19/18 07:07 Labs: Abnormal Lab Results - Last 24 Hours (Table) 01/18/18 01/18/18 01/19/18 Range/Units 16:54 19:38 06:52 RBC (4.30-5.90) m/uL Hgb (13.0-17.5) gm/dL Hct (39.0-53.0) % Sodium (137-145) mmol/L Chloride (98-107) mmol/L BUN (9-20) mg/dL Creatinine (0.66-1.25) mg/dL Glucose (74-99) mg/dL POC Glucose (mg/dL) 205 H 220 H 186 H (75-99) mg/dL Alkaline Phosphatase (38-126) U/L Albumin (3.5-5.0) g/dL 01/19/18 01/19/18 01/19/18 Range/Units 07:07 07:07 11:23 RBC 3.28 L (4.30-5.90) m/uL Hgb 9.1 L (13.0-17.5) gm/dL Hct 29.4 L (39.0-53.0) % Sodium 131 L (137-145) mmol/L Chloride 91 L (98-107) mmol/L BUN 62 H (9-20) mg/dL Creatinine 6.26 H* (0.66-1.25) mg/dL Glucose 152 H (74-99) mg/dL POC Glucose (mg/dL) 134 H (75-99) mg/dL Alkaline Phosphatase 160 H (38-126) U/L Albumin 3.1 L (3.5-5.0) g/dL Microbiology - Last 24 Hours (Table) 01/14/18 16:30 Blood Culture - Preliminary Blood No Growth after 96 hours Assessment and Plan Assessment: Acute kidney injury on chronic kidney disease likely now will need hemodialysis -Nephrology recommendations -Per nursing plan is hemodialysis daily for the next 3 days and then chronically on Friday/Friday/Friday -Patient will need permanent catheter placed prior to discharge -Continue off Cozaar, Aldactone Acute exacerbation of diastolic congestive heart failure, ejection fraction 55- 60% with moderate pulmonary hypertension -Continue with Coreg -No LUCINDA inhibitor secondary to acute kidney injury -Fluid control with dialysis and IV Lasix Hypertensive urgency with hypertensive emergency on admission -Continue with Coreg, hydralazine, and Imdur -We will add Catapres if blood pressure remains elevated after daily dialysis initiated -Follow blood pressures Febrile event -Likely intra-abdominal source -ID recommendations appreciated -Currently on Zosyn day #7, transition to a short course of augmentin on discharge per ID Diabetes mellitus type 2 -Had slightly elevated blood sugars but with initiation of daily dialysis will not increase insulin regimen at this time -Continue with Levemir 35 units daily and sliding scale Hepatitis C - currently on Mavyret has not been receiving this hospital stay as did not bring in from home. Chronic/resolved HLD Asthma COPD Acute pancreatitis, resolved Elevated troponin, flat Contaminated blood culture with staph epidermidis Hyperkalemia, resolved DVT prophylaxis: Heparin Discussed with: Patient, nursing, case management Anticipated discharge: 01/[address]: [facility] A total of [45] minutes was spent on the care of this complex patient more than 50% of the time was spent in counseling and care coordination.
[2018-01-19] MEDS ORDERED: AMOXIC-POT CLAV 500-125 MG 1 EACH TAB PO STA (16:49)
--- NOTE | 2018-01-19 17:12 | PN ---
PROGRESS NOTE DATE OF SERVICE: 01/19/2018. REASON FOR FOLLOWUP: 1. Positive blood culture, more likely contamination. 2. Fever, possible abdominal source. INTERVAL HISTORY: The patient is afebrile. He has been breathing comfortably. Denies any significant chest pain or cough. No nausea, no vomiting. EXAMINATION: Blood pressure 130/72 with a pulse of 70. Temperature 98.7. She is 97% on room air. General description is an elderly male lying in bed in no distress. RESPIRATORY SYSTEM: Unlabored breathing. Clear to auscultation anteriorly. HEART: S1, S2. Regular rate and rhythm. ABDOMEN: Soft, no tenderness. LABS: Hemoglobin 9.1, white count 9.1, BUN of 52, creatinine of 6.26. DIAGNOSTIC IMPRESSION AND PLAN: 1. Patient with positive blood culture, more likely a contamination. Repeat blood culture negative. Currently off the daptomycin. 2. Patient with a fever source, possible abdominal. The fever has resolved. Culture has been negative. We will discontinue the Zosyn and give a short course of oral Augmentin. Plan of care discussed with admitting physician. MMODL / IJN: [id number] /
[2018-01-19 17:17] LABS: Glucose,Whole Blood 223 mg/dL (75-99)
[2018-01-19 20:20] LABS: Glucose,Whole Blood 423 mg/dL (75-99)
--- NOTE | 2018-01-19 20:24 | PN ---
PROGRESS NOTE Patient is seen currently on dialysis. He is tolerating his treatment well. We going for about 4 L. PHYSICAL EXAMINATION: Blood pressure this morning was 181/71, heart rate of 70 per minute. Patient is afebrile. Examination of the heart: S1, S2. Examination lungs: Bilateral breath sounds are heard. Abdomen is soft, nontender, and distended with abdominal wall edema. Examination lower extremity shows edema 2+ bilaterally. Patient has edema in upper extremities as well. LABS SHOW: Sodium 131, potassium 4.9, BUN 62, serum creatinine 6.26, hemoglobin 9.1 g/dL. ASSESSMENT: 1. Acute kidney injury, ATN currently with volume overload and maintained on dialysis. I will dialyze the patient again tomorrow given the significant volume overload. 2. Volume overload. Repeat hemodialysis in a.m. Continue with diuretics as well. 3. Staph epi bacteremia. 4. Diastolic dysfunction. Ejection fraction 55%. 5. Pancreatitis, currently improved. Patient is tolerating oral diet. 6. Hypertension. Partly volume sensitive. Blood pressure remains elevated. The patient is maintained on Coreg 25 mg b.i.d. along with max dose of hydralazine. He is on Imdur as well. I will add calcium channel blockers and we can wean down his antihypertensive medications once volume status improves. MMODL / IJN: [id number] /
[2018-01-19] MEDS: NIFEdipine XL 30 MG TAB.ER.24 PO SCH (20:31)
[2018-01-20] MEDS: HEPARIN SODIUM,PORCINE 5,000 UNIT/ML 1 ML VIAL SQ SCH ×3 (00:30→18:01)
[2018-01-20] MEDS: SODIUM CHLORIDE 0.9% 1,000 ML IV SCH (00:30)
[2018-01-20 06:59] LABS: Glucose,Whole Blood 142 mg/dL (75-99)
[2018-01-20] MEDS: INSULIN DETEMIR 100 UNIT/ML 10 ML VIAL SQ SCH (08:07)
[2018-01-20] MEDS: hydrALAZINE HCL 50 MG TAB PO SCH ×3 (08:07→20:45)
[2018-01-20] MEDS: INSULIN ASPART 100 UNIT/ML 1 ML 10 ML VIAL SQ SCH ×6 (08:07→20:43)
--- NOTE | 2018-01-20 08:23 | P.PN ---
Subjective Progress Note Date: 01/20/18 Principal diagnosis: chest pain patient is a 72-year-old -[place] male with a past medical history ofcoronary artery disease, systolic congestive heart failure, prior pancreatitis , multiple other medical comorbidities who presented to the emergency department with complaints of abdominal and chest pain. In the emergency department he was found to have a potassium of 5.9, low magnesium, and an elevated troponin of 0.38. He was admitted for further monitoring of his acute hyperkalemia, elevated troponin, and abdominal pain.he was started on IV fluids and nothing by mouth. He was seen by GI and diagnosed with acute pancreatitis secondary to alcoholic hepatitis. He was seen by cardiology and his elevated troponins were deemed likely secondary to renal insufficiency. He was diagnosed with diastolic congestive heart failure with acute exacerbation and had been on Lasix. He was seen by nephrology and diagnosed with a I likely secondary to ATN and hypercalcemia. He had been taken off of his angiotensin receptor chasidy. He was started on IV Lasix. His IV Lasix did not help with diuresis and he was ultimately started on a Lasix drip. His diet was slowly advanced for pancreatitis. He did start spiking fever and was seen by infectious disease on 05/16. He was started on Zosyn and a repeat CT abdomen and pelvis was ordered. CT abdomen and pelvis showed an infiltrate at the left lung base similar to old exam but no acute abdominal abnormality. One blood culture came back with staph epidermidis and was determined to be a likely contaminant. Chest x-ray and urinalysis were negative. His fevers were thought to be secondary to his acute pancreatitis. He continued to have worsening fluid overload as well as worsening renal function despite adjustments in his IV Lasix. He was subsequently started on hemodialysis on January 15 after a HD cath was placed in the right groin. His fevers abated. They attempted to hold dialysis and his creatinine increased again. Plans are for HD today and tomorrow. Patient seen and examined at bedside while undergoing HD. He is in better spirits today. His shortness of breath is improved. His nausea is resolved. No chest pain. Edema slightly better. Objective - Vital Signs Vital signs: Vital Signs Temp 98.5 F 01/20/18 07:00 Pulse 67 01/20/18 07:00 Resp 14 01/20/18 07:00 BP 181/56 07/10/18 07:00 Pulse Ox 92 L 01/20/18 07:00 Intake & Output 01/19/18 01/20/18 01/20/18 18:59 06:59 18:59 Intake Total 555 70 Output Total 50 50 Balance 505 20 Weight 107.8 kg 0 g Intake: IV 80 70 Sodium Chloride 0.9% 1, 80 70 000 ml @ 10 mls/hr IV . Q24H [facility] Rx#:[id number] Oral 475 Output: Urine 50 50 Uretheral (Elise) 50 Other: Voiding Method Indwelling Catheter # Bowel Movements 2 - Exam General: non toxic, no distress, appears at stated age Derm: warm, dry Head: atraumatic, normocephalic, symmetric Eyes: EOMI, no lid lag, anicteric sclera Mouth: no lip lesion, mucus membranes moist Cardiovascular: S1S2 reg, no murmur, positive posterior tibial pulse bilateral, Lungs: Decreased breath sounds bilateral bases, no rhonchi, no rales , no accessory muscle use Abdominal: soft, nontender to palpation, no guarding, no appreciable organomegaly Ext: no gross muscle atrophy, diffuse anasarca, no contractures Neuro: CN II-XI grossly intact, no focal neuro deficits Psych: Alert, oriented, appropriate affect - Labs CBC & Chem 7: 01/19/18 07:07 01/19/18 07:07 Labs: Abnormal Lab Results - Last 24 Hours (Table) 01/19/18 01/19/18 01/19/18 Range/Units 11:23 17:12 20:13 POC Glucose (mg/dL) 134 H 223 H 423 H (75-99) mg/dL 01/20/18 Range/Units 06:57 POC Glucose (mg/dL) 142 H (75-99) mg/dL Microbiology - Last 24 Hours (Table) 01/14/18 16:30 Blood Culture - Preliminary Blood No Growth after 120 hours Assessment and Plan Assessment: Acute kidney injury on chronic kidney disease likely now will need hemodialysis -Nephrology recommendations -Per nursing plan is hemodialysis today and tomorrow and then chronically on Friday/Friday/Friday -Has HD cath in place -Continue off Cozaar, Aldactone Acute exacerbation of diastolic congestive heart failure, ejection fraction 55- 60% with moderate pulmonary hypertension -Continue with Coreg -No LUCINDA inhibitor secondary to acute kidney injury -Fluid control with dialysis and IV Lasix Hypertensive urgency with hypertensive emergency on admission -Continue with Coreg, hydralazine, procardia, and Imdur. Better control overnight on 01/19. -Follow blood pressures Diabetes mellitus type 2 - add novolog 2 units to lunch and 4 units to dinner -Continue with Levemir 35 units daily and sliding scale Febrile event -Likely intra-abdominal source -ID recommendations appreciated -Currently on Zosyn day #8, transition to a short course of augmentin on discharge per ID Hepatitis C - currently on Mavyret has not been receiving this hospital stay as did not bring in from home. Chronic/resolved HLD Asthma COPD Acute pancreatitis, resolved Elevated troponin, flat Contaminated blood culture with staph epidermidis Hyperkalemia, resolved DVT prophylaxis: Heparin Discussed with: Patient, nursing, case management Anticipated discharge: 01/[address]: [facility] A total of 25 minutes was spent on the care of this complex patient more than 50 % of the time was spent in counseling and care coordination.
[2018-01-20] MEDS: IPRATROPIUM-ALBUTEROL 3 ML NEB INHALATION SCH ×3 (09:16→19:08)
--- NOTE | 2018-01-20 09:16 | CDI ---
Last Revision, June 2017 Documentation Clarification Form Date: 01/20/1810 From: Elizabet Cardoso RN, CCDS Admit Date: 01/06/2018 6:52:00 AM Patient Name: Braulio Andino Visit Number: [id number] ATTENTION: The Clinical Documentation Specialists (CDI) and [facility] Coding Staff appreciate your assistance in clarifying documentation. Please respond to the clarification below the line at the bottom and electronically sign. The CDI & [facility] Coding staff will review the response and follow-up if needed. Please note: Queries are made part of the Legal Health Record. If you have any questions, please contact the author of this message via ITS. Dr. Marilu Rojas CKD has been documented and requires further specificity. History/Risk Factors: ETOH, Acute pancreatitis, Hepatitis C, "renal Insufficiency", CHF, Home O2, chronic anemia, gouty OA Clinical Indicators: 01/19 Nephrology: "Acute kidney injury, ATN currently with volume overload and maintained on dialysis." 01/20 attending Progress Note: "Acute kidney injury on chronic kidney disease likely now will need hem dialysis." Current BUN: 52/56/58/63/70/87/91 CR: 2.4/3.13.9/4.3/2.95/3.2/3.81 GFR: //13//18/15 09/29/17 Patients Baseline: BUN/CR/GFR: 24/1.56/44 Treatment: IVF: 1.5L IVF 0.9% NS HCO3 IVP Lasix IVP multiple doses, Lasix Drip @ 10 cc/ht, currently D/C, currently Lasix 80mg IVP Q 12 hrs In order to capture the severity of condition, please clarify if the condition signifies: CKD Stage 1 (GFR > 90) CKD Stage 2 (GFR 60-89) CKD Stage 3 (GFR 30-59) CKD Stage 4 (GFR 15-29) CKD Stage 5 (GFR <15) ESRD Other, please specify Unable to determine Please continue to document in your progress notes and discharge summary in order to capture severity of illness and risk of mortality. Include clinical findings that support your diagnosis. CKD stage 3 MTDD
[2018-01-20] MEDS: CARVEDILOL 12.5 MG TAB PO SCH ×2 (10:48→18:01)
[2018-01-20] MEDS: PANTOPRAZOLE 40 MG TABLET PO SCH (10:48)
[2018-01-20] MEDS: GABAPENTIN 100 MG CAP PO SCH ×3 (10:48→20:44)
[2018-01-20] MEDS: MAGNESIUM OXIDE 400 MG TAB PO SCH (10:48)
[2018-01-20] MEDS: FUROSEMIDE 10 MG/ML 10 ML VIAL IV SCH ×2 (10:48→20:44)
[2018-01-20] MEDS: NIFEdipine XL 30 MG TAB.ER.24 PO SCH (10:48)
[2018-01-20] MEDS: ISOSORBIDE MONONITRATE ER 60 MG TAB.ER.24H PO SCH (10:48)
[2018-01-20] MEDS: MAVYRET PO SCH (10:53)
[2018-01-20] MEDS: HYDROcodone/APAP 7.5-325MG 1 EACH TAB PO PRN (10:55)
[2018-01-20 11:05] LABS: Glucose,Whole Blood 220 mg/dL (75-99)
[2018-01-20] MEDS ORDERED: HEPARIN SODIUM,PORCINE 5,000 UNIT/ML 1 ML VIAL ONE (11:31)
[2018-01-20] MEDS ORDERED: INSULIN ASPART 100 UNIT/ML 1 ML 10 ML VIAL SQ SCH (12:30)
[2018-01-20] MEDS: AMOXIC-POT CLAV 500-125 MG 1 EACH TAB PO SCH ×2 (13:36→20:44)
--- NOTE | 2018-01-20 14:28 | PN ---
PROGRESS NOTE DATE OF SERVICE: 01/20/2018 REASON FOR FOLLOWUP: 1. Fever, likely abdominal source. 2. Positive blood culture likely contamination. INTERVAL HISTORY: The patient is afebrile, has been breathing comfortably. Denies having any chest pain or shortness of breath or cough. No abdominal pain or any diarrhea. PHYSICAL EXAMINATION: Blood pressure 181/56, pulse of 57, temperature 98.5. He is 92% on room air. General description is an elderly male, lying in bed in no distress. RESPIRATORY SYSTEM: Unlabored breathing, clear to auscultation anteriorly. HEART: S1, S2. Regular rate. ABDOMEN: Soft, no tenderness. LABS: White count normalized to 9.1. Blood culture repeat has been negative. DIAGNOSTIC IMPRESSION AND PLAN: 1. Patient with positive blood cultures, staph-epi, likely contamination. Follow up blood culture has been negative, off the daptomycin. 2. Patient who did have a fever with concern for possible abdominal source for which the patient will be continued on the oral Augmentin for about 5 days. Plan of care was discussed with the admitting physician. MMODL / IJN: [id number] /
--- NOTE | 2018-01-20 15:22 | PN ---
PROGRESS NOTE The patient is seen for followup of acute kidney injury. He is currently maintained on hemodialysis. He had treatment this morning and there are plans for discharge to assisted with continued dialysis as outpatient for acute kidney injury. The patient will be maintained on a Friday, Friday, Friday schedule. PHYSICAL EXAMINATION: On examination today, blood pressure was 181/56. Heart rate 92 per minute. He is afebrile. Examination of the heart S1, S2. Examination of the lungs: Bilateral breath sounds are heard. Decrease breath sound at the bases. Abdomen is soft, obese, nontender. Exam of the lower extremities shows much decreased edema, however, about 2+ bilaterally upper and lower extremities. LABS: Not available from today. ASSESSMENT: 1. Acute kidney injury, currently dialysis dependent. We will continue with outpatient hemodialysis and continue to monitor for recovery of renal function. Etiology is acute tubular necrosis. 2. Acute pancreatitis with no evidence of gallstones, currently improved. The patient is tolerating oral diet. 3. Volume overload also significantly improved. Will continue with diuretics and maintain good ultrafiltration with hemodialysis. 4. Staphylococcus epidermidis bacteremia, likely contaminant. PLAN: Patient can be discharged from nephrology standpoint with continued dialysis as outpatient. We will continue to monitor for recovery of renal function as outpatient. MMODL / IJN: [id number] /
[2018-01-20 16:55] LABS: Glucose,Whole Blood 200 mg/dL (75-99)
[2018-01-20 20:06] LABS: Glucose,Whole Blood 181 mg/dL (75-99)
[2018-01-21] MEDS ORDERED: HEPARIN SODIUM,PORCINE 5,000 UNIT/ML 1 ML VIAL ONE
[2018-01-21] MEDS: SODIUM CHLORIDE 0.9% 1,000 ML IV SCH (05:10)
[2018-01-21] MEDS: HEPARIN SODIUM,PORCINE 5,000 UNIT/ML 1 ML VIAL SQ SCH ×4 (05:12→23:32)
[2018-01-21 07:17] LABS: Glucose,Whole Blood 177 mg/dL (75-99)
[2018-01-21] MEDS: CARVEDILOL 12.5 MG TAB PO SCH ×2 (07:48→17:59)
[2018-01-21] MEDS: INSULIN ASPART 100 UNIT/ML 1 ML 10 ML VIAL SQ SCH ×6 (07:48→21:35)
[2018-01-21] MEDS: PANTOPRAZOLE 40 MG TABLET PO SCH (07:48)
[2018-01-21] MEDS: AMOXIC-POT CLAV 500-125 MG 1 EACH TAB PO SCH ×2 (07:50→21:34)
[2018-01-21] MEDS: FUROSEMIDE 10 MG/ML 10 ML VIAL IV SCH ×2 (07:51→22:03)
[2018-01-21] MEDS: GABAPENTIN 100 MG CAP PO SCH ×3 (07:51→21:36)
[2018-01-21] MEDS: ISOSORBIDE MONONITRATE ER 60 MG TAB.ER.24H PO SCH (07:52)
[2018-01-21] MEDS: hydrALAZINE HCL 50 MG TAB PO SCH ×3 (07:52→21:36)
[2018-01-21] MEDS: INSULIN DETEMIR 100 UNIT/ML 10 ML VIAL SQ SCH (07:54)
[2018-01-21] MEDS: IPRATROPIUM-ALBUTEROL 3 ML NEB INHALATION SCH ×3 (07:59→19:51)
[2018-01-21] MEDS: MAVYRET PO SCH (08:12)
[2018-01-21] MEDS: MAGNESIUM OXIDE 400 MG TAB PO SCH (08:15)
[2018-01-21] MEDS: NIFEdipine XL 30 MG TAB.ER.24 PO SCH (08:15)
[2018-01-21 11:27] LABS: Glucose,Whole Blood 243 mg/dL (75-99)
--- NOTE | 2018-01-21 11:43 | P.PN ---
Progress Note - Text Progress Note Date: 01/21/18 Hoping to discharge today. Awaiting approval. Formal note or discharge summary to follow.
--- NOTE | 2018-01-21 12:59 | PN ---
PROGRESS NOTE DATE OF SERVICE: 01/21/2018 REASON FOR FOLLOWUP: 1. Fever, possible abdominal source. 2. Positive blood culture. INTERVAL HISTORY: The patient is afebrile. Has been breathing comfortably. No nausea, vomiting or diarrhea has been reported by the nursing staff. No new symptoms. PHYSICAL EXAMINATION: On examination, blood pressure 150/77 with a pulse of 72, temperature 99. He is 97% on 4 L nasal cannula. General description is an elderly male lying in bed in no distress. RESPIRATORY SYSTEM: Unlabored breathing, clear to auscultation anteriorly. HEART: S1, S2. Regular rate and rhythm. ABDOMEN: Soft, no tenderness. LABS: No new labs have been obtained today. DIAGNOSTIC IMPRESSION AND PLAN: 1. Patient with positive blood culture, Staphylococcus epidermidis likely contamination followup blood culture negative. 2. Patient with fever, possible abdominal source. The patient did have a elevated amylase and lipase; however, CT was negative. Currently on oral Augmentin continue for another 4 to 5 days to finish course of therapy. Continue supportive care. MMODL / IJN: [id number] /
--- NOTE | 2018-01-21 13:33 | P.PN ---
Subjective Progress Note Date: 01/21/18 Principal diagnosis: chest pain patient is a 72-year-old -[place] male with a past medical history ofcoronary artery disease, systolic congestive heart failure, prior pancreatitis , multiple other medical comorbidities who presented to the emergency department with complaints of abdominal and chest pain. In the emergency department he was found to have a potassium of 5.9, low magnesium, and an elevated troponin of 0.38. He was admitted for further monitoring of his acute hyperkalemia, elevated troponin, and abdominal pain.he was started on IV fluids and nothing by mouth. He was seen by GI and diagnosed with acute pancreatitis secondary to alcoholic hepatitis. He was seen by cardiology and his elevated troponins were deemed likely secondary to renal insufficiency. He was diagnosed with diastolic congestive heart failure with acute exacerbation and had been on Lasix. He was seen by nephrology and diagnosed with a I likely secondary to ATN and hypercalcemia. He had been taken off of his angiotensin receptor chasidy. He was started on IV Lasix. His IV Lasix did not help with diuresis and he was ultimately started on a Lasix drip. His diet was slowly advanced for pancreatitis. He did start spiking fever and was seen by infectious disease on 05/16. He was started on Zosyn and a repeat CT abdomen and pelvis was ordered. CT abdomen and pelvis showed an infiltrate at the left lung base similar to old exam but no acute abdominal abnormality. One blood culture came back with staph epidermidis and was determined to be a likely contaminant. Chest x-ray and urinalysis were negative. His fevers were thought to be secondary to his acute pancreatitis. He continued to have worsening fluid overload as well as worsening renal function despite adjustments in his IV Lasix. He was subsequently started on hemodialysis on January 15 after a HD cath was placed in the right groin. His fevers abated. They attempted to hold dialysis and his creatinine increased again. Underwent HD on , 01/21, nad plans are for 01/22. He will also have outpatient HD on ,,. Patient seen and examined at bedside while undergoing HD. He is worried about paying his rent when at rehab. Feeling better. SOB is easing, much less swelling. No nausea. No vomiting. Objective - Vital Signs Vital signs: Vital Signs Temp 99.0 F 01/21/18 08:14 Pulse 72 01/21/18 08:14 Resp 20 07/11/18 08:14 BP 150/77 01/21/18 08:14 Pulse Ox 97 01/21/18 08:14 Intake & Output 01/20/18 01/21/18 01/21/18 18:59 06:59 18:59 Intake Total 80 110 Output Total 75 Balance 5 110 Weight 107.6 kg Intake: IV 110 Sodium Chloride 0.9% 1, 110 000 ml @ 10 mls/hr IV . Q24H [facility] Rx#:[id number] Lipid 80 Sodium Chloride 0.9% 1, 80 000 ml @ 10 mls/hr IV . Q24H [facility] Rx#:[id number] Output: Urine 75 Other: Voiding Method Indwelling Catheter Indwelling Catheter Indwelling Catheter - Exam General: non toxic, no distress, appears at stated age Derm: warm, dry Head: atraumatic, normocephalic, symmetric Eyes: EOMI, no lid lag, anicteric sclera Mouth: no lip lesion, mucus membranes moist Cardiovascular: S1S2 reg, no murmur, positive posterior tibial pulse bilateral, Lungs: CTA b/l, no rhonchi, no rales , no accessory muscle use Abdominal: soft, nontender to palpation, no guarding, no appreciable organomegaly Ext: no gross muscle atrophy, 3+ edema, no contractures Neuro: CN II-XI grossly intact, no focal neuro deficits Psych: Alert, oriented, appropriate affect - Labs CBC & Chem 7: 01/19/18 07:07 01/19/18 07:07 Labs: Abnormal Lab Results - Last 24 Hours (Table) 01/20/18 01/20/18 01/21/18 Range/Units 16:54 20:02 07:10 POC Glucose (mg/dL) 200 H 181 H 177 H (75-99) mg/dL 01/21/18 Range/Units 11:25 POC Glucose (mg/dL) 243 H (75-99) mg/dL Microbiology - Last 24 Hours (Table) 01/14/18 16:30 Blood Culture - Final Blood No Growth after 144 hours Assessment and Plan Assessment: Acute kidney injury on chronic kidney disease likely now will need hemodialysis -Nephrology recommendations -HD today and then chronically on Friday/Friday/Friday -Has HD cath in place -Continue off Cozaar, Aldactone Acute exacerbation of diastolic congestive heart failure, ejection fraction 55- 60% with moderate pulmonary hypertension -Continue with Coreg -No LUCINDA inhibitor secondary to acute kidney injury -Fluid control with dialysis and IV Lasix. Transition to PO on discharge Hypertensive urgency with hypertensive emergency on admission -Continue with Coreg, hydralazine, procardia, and Imdur. Better control overnight on 01/19. -Follow blood pressures Diabetes mellitus type 2 - Novolog 2 units to lunch and 4 units to dinner -Continue with Levemir 35 units daily and sliding scale Febrile event -Likely intra-abdominal source -ID recommendations appreciated -Currently on Zosyn day #9, transition to a short course of augmentin on discharge per ID Hep[facility] as did not bring in from home. Chronic/resolved HLD Asthma COPD Acute pancreatitis, resolved Elevated troponin, flat Contaminated blood culture with staph epidermidis Hyperkalemia, resolved Hoping to discharge today if possible, awaiting placement DVT prophylaxis: Heparin Discussed with: Patient, nursing, case management Anticipated discharge: 01/[address]: [facility] A total of 25 minutes was spent on the care of this complex patient more than 50 % of the time was spent in counseling and care coordination.
--- NOTE | 2018-01-21 14:50 | PN ---
PROGRESS NOTE Patient is seen for followup for acute kidney injury, currently dialysis dependent. The patient will be dialyzed again today. He was scheduled for discharged. However, there is still some paperwork pending. The patient will be dialyzed on a Friday, Friday, Friday schedule as outpatient starting Friday. PHYSICAL EXAMINATION: On examination today, blood pressure was 150/77, heart rate is 72 per minute. He is afebrile. Examination of the heart S1, S2. Examination of the lungs bilateral breath sounds are heard. Abdomen is soft, nontender, obese. Examination of lower extremity shows 2+ edema bilaterally. LABS: Not available from today. ASSESSMENT: 1. Acute kidney injury, currently dialysis dependent. We will continue to maintain patient on hemodialysis which he will continue as outpatient as well. We will continue to monitor for recovery of renal function. Patient will be dialyzed today. 2. Volume overload, currently improving. 3. Acute pancreatitis with no evidence of gallstones possibly related to ETOH, currently improved. Patient is maintained on oral intake, which he is tolerating well. 4. History of hyperkalemia, currently improved. 5. Staphylococcus epidermidis bacteremia, likely contaminant. PLAN: Hemodialysis today and patient can be discharged once bed is available. His next dialysis will be on Friday and this can be done as outpatient if he is discharged. MMODL / IJN: [id number] /
[2018-01-21 15:51] LABS: Potassium 4.5 mmol/L (3.5-5.1)
[2018-01-21 16:52] LABS: Glucose,Whole Blood 253 mg/dL (75-99)
[2018-01-21] MEDS: HYDROcodone/APAP 7.5-325MG 1 EACH TAB PO PRN (19:23)
[2018-01-21 20:51] LABS: Glucose,Whole Blood 189 mg/dL (75-99)
[2018-01-22] MEDS: SODIUM CHLORIDE 0.9% 1,000 ML IV SCH (04:32)
--- NOTE | 2018-01-22 06:32 | P.CONS ---
History of Present Illness - Chief Complaint Medical debility - History of Present Illness I had the opportunity to see patient for inpatient rehab consultation guard to medical debility. He was admitted to [facility] January 06 with chest and abdominal pain. I note some alcohol-related problems including pancreatitis and possibly hepatitis. Abdominal pelvic CT 2 demonstrated on atelectasis and cardiomegaly. Chest x-ray with mild CHF and cardiomegaly. Abdominal ultrasound limited due to body habitus. Pulmonary perfusion low probability. PT reports maximal assistance to person for bed mobility standing and transfers. OT reports moderate assistance for upper dressing and total assistance for lower dressing, bathing, toileting. Maximal assistance of 2 person for mobility. Previous functional history as elicited from patient: 72-year-old right-handed male who is retired. Lives alone in [place]. Describes independent with own cooking, laundry, driving and standing shower. Regular doctors Dr. Soliman. Denies tobacco. Review of Systems Review of systems: Elicited from chart and exam of patient. ENT: Denies sneezes or discharge. Eyes: Denies discharge or photophobia. Cardiac: Denies chest pain or palpitation. Pulmonary: Denies cough or shortness of breath. Gastrointestinal: Mild abdominal discomfort. Genitourinary: Denies discharge or frequency. Musculoskeletal: Denies muscle or bone aches. Neurologic: Quite confused. Endocrine: Denies shakes or sweats. Oncology: Denies cancers. Dermatologic: Denies rash, itching, pruritus. ALLERGY/immunology: Denies sneezes, rashes. 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 Last Myocardial Infarction Date:: 11/2013 History of Any Multi-Drug Resistant Organisms: None Reported Past Surgical History: Heart Catheterization, Pacemaker Additional Past Surgical History / Comment(s): PTCA 2010 in [place], CATARACTS TRAY EYES REMOVED. liver biopsy on 10-18-13, Past Anesthesia/Blood Transfusion Reactions: No Reported Reaction Type of Cardiac Device: Permanent Pacemaker Device Placement Date:: 2013? pt unsure Smoking Status: Never smoker - Past Family History Mother Family Medical History: Hypertension Sister(s) Family Medical History: Cancer Father History Unknown: Yes Medications and Allergies Home Medications Medication Instructions Recorded Confirmed Type Nitroglycerin Sl Tabs [Nitrostat] 0.4 mg SUBLINGUAL Q5M PRN 11/28/13 01/06/18 History Carvedilol 25 mg PO AC-BID 01/24/15 01/06/18 History Docusate [Colace] 100 mg PO HS PRN 06/07/15 01/06/18 History Isosorbide Mononitrate ER [Imdur] 60 mg PO DAILY tab.er.24h 09/23/17 01/06/18 Rx Pantoprazole [Protonix] 40 mg PO AC-BRKFST tablet. 09/23/17 01/06/18 Rx hydrALAZINE HCL [Apresoline] 100 mg PO TID tab 09/23/17 01/06/18 Rx Atorvastatin [Lipitor] 20 mg PO HS 01/06/18 01/06/18 History Glecaprevir/Pibrentasvir [Mavyret 3 tab PO DAILY 01/06/18 01/06/18 History 100-40 mg Tablet] Insulin Detemir [Levemir] 35 unit SQ DAILY 01/06/18 01/06/18 History Magnesium Oxide [Mag-Ox] 400 mg PO DAILY 01/06/18 01/06/18 History Amoxic-Pot Clav 500-125 mg 1 each PO BID 5 Days #10 tab 01/21/18 Rx [Augmentin 500-125 mg] Furosemide [Lasix] 80 mg PO AC-BID #60 tablet 01/21/18 Rx Gabapentin [Neurontin] 100 mg PO TID cap 01/21/18 Rx HYDROcodone/APAP 7.5-325MG [[place] 1 tab PO Q6HR PRN #28 tab 01/21/18 Rx 7.5-325] Insulin Aspart [NovoLOG 0 unit SQ ACHS vial 01/21/18 Rx (formulary)] Insulin Aspart [NovoLOG 2 unit SQ AC-LUNCH #0 vial 01/21/18 Rx (formulary)] Insulin Aspart [NovoLOG 4 unit SQ AC-SUPPER vial 01/21/18 Rx (formulary)] NIFEdipine XL [Procardia XL] 30 mg PO DAILY tab.er.24 01/21/18 Rx Polyethylene Glycol 3350 [Miralax] 17 gm PO DAILY PRN powd.pack 01/21/18 Rx Allergies Allergy/AdvReac Type Severity Reaction Status Date / Time No Known Allergies Allergy Verified 01/06/18 07:39 Physical Exam Vitals: Vital Signs Temp Pulse Pulse Pulse Resp BP Pulse Ox 01/21/18 23:40 98.6 F 65 18 139/72 98 01/21/18 20:04 64 16 01/21/18 19:52 68 16 01/21/18 19:30 99.1 F 65 17 127/56 01/21/18 15:00 97.5 F L 63 15 153/63 99 01/21/18 08:14 99.0 F 72 20 150/77 97 01/21/18 08:10 64 01/21/18 07:59 64 Intake and Output 01/21/18 01/21/18 01/22/18 14:59 22:59 06:59 Intake Total 1040 240 120 Output Total 200 Balance 1040 240 -80 Intake: IV 120 Sodium Chloride 0.9% 1, 120 000 ml @ 10 mls/hr IV . Q24H [facility] Rx#:[id number] Intake, IV Titration 800 Amount Sodium Chloride 0.9% 1, 800 000 ml @ 10 mls/hr IV . Q24H [facility] Rx#:[id number] Oral 240 240 Output: Urine 200 Other: Voiding Method Indwelling Catheter Indwelling Catheter Weight 107.6 kg Skin: Good color, texture, turgor. General: Obese build and slightly uncomfortable appearance. Head: Normocephalic, atraumatic. Eyes: Symmetric. Pupils equal round. Ears: Symmetric. Hearing within normal limits. Mouth: Clear. Neck: Supple. Carotid without bruit. Cardiac: Regular rate and rhythm. Lungs: Clear anteriorly and posteriorly. Abdomen: Soft active nontender. Obese. Extremities: Normal tone. Neurological: Mental status: Confused but cooperative. Cranial nerves: Symmetric facial tone and trapezius. Motor: Poor movement arms and legs against gravity. Sensation: Intact throughout. DTRs: Symmetric and equal throughout. Mobility: Maximal to total assistance for bed mobility. Results CBC & Chem 7: 01/19/18 07:07 01/21/18 15:10 Labs: Abnormal Lab Results - Last 24 Hours (Table) 01/21/18 01/21/18 01/21/18 Range/Units 07:10 11:25 15:10 Sodium 132 L (137-145) mmol/L Chloride 94 L (98-107) mmol/L BUN 35 H (9-20) mg/dL Creatinine 3.50 H (0.66-1.25) mg/dL Glucose 250 H (74-99) mg/dL POC Glucose (mg/dL) 177 H 243 H (75-99) mg/dL 01/21/18 01/21/18 Range/Units 16:49 20:48 Sodium (137-145) mmol/L Chloride (98-107) mmol/L BUN (9-20) mg/dL Creatinine (0.66-1.25) mg/dL Glucose (74-99) mg/dL POC Glucose (mg/dL) 253 H 189 H (75-99) mg/dL Assessment and Plan (1) Abdominal pain Current Visit: Yes Status: Acute Code(s): R10.9 - UNSPECIFIED ABDOMINAL PAIN SNOMED Code(s): 81263863 (2) Atypical chest pain Current Visit: Yes Status: Acute Code(s): R07.89 - OTHER CHEST PAIN SNOMED Code(s): 643413541 Plan: Impression: 1. Medical debility. 2. Abdominal pain. 3. Atypical chest pain. 4. Obese. 5. Pancreatitis per 6. Possible alcoholic hepatitis. 7. Hypertension. 8. Dyslipidemia. 9. CHF. 10. Coronary disease with history angina. 11. COPD. 12. Diabetes. 13. Osteoarthritis. Comments and plan: PT and OT ongoing. I have added speech therapy. Rehab prognosis currently guarded as therapies currently done to patient and rather than with patient.
[2018-01-22 06:56] LABS: Glucose,Whole Blood 162 mg/dL (75-99)
[2018-01-22] MEDS: INSULIN ASPART 100 UNIT/ML 1 ML 10 ML VIAL SQ SCH ×6 (07:57→22:06)
[2018-01-22] MEDS: PANTOPRAZOLE 40 MG TABLET PO SCH (07:59)
[2018-01-22] MEDS: AMOXIC-POT CLAV 500-125 MG 1 EACH TAB PO SCH ×2 (07:59→22:07)
[2018-01-22] MEDS: HEPARIN SODIUM,PORCINE 5,000 UNIT/ML 1 ML VIAL SQ SCH ×2 (07:59→16:50)
[2018-01-22] MEDS: GABAPENTIN 100 MG CAP PO SCH ×3 (07:59→22:08)
[2018-01-22] MEDS: FUROSEMIDE 10 MG/ML 10 ML VIAL IV SCH ×2 (07:59→22:06)
[2018-01-22] MEDS: CARVEDILOL 12.5 MG TAB PO SCH ×2 (07:59→16:51)
[2018-01-22] MEDS: MAVYRET PO SCH (08:00)
[2018-01-22] MEDS: NIFEdipine XL 30 MG TAB.ER.24 PO SCH (08:00)
[2018-01-22] MEDS: hydrALAZINE HCL 50 MG TAB PO SCH ×3 (08:00→22:08)
[2018-01-22] MEDS: ISOSORBIDE MONONITRATE ER 60 MG TAB.ER.24H PO SCH (08:00)
[2018-01-22] MEDS: MAGNESIUM OXIDE 400 MG TAB PO SCH (08:00)
[2018-01-22] MEDS: INSULIN DETEMIR 100 UNIT/ML 10 ML VIAL SQ SCH (08:01)
[2018-01-22] MEDS: IPRATROPIUM-ALBUTEROL 3 ML NEB INHALATION SCH ×3 (08:07→19:28)
[2018-01-22] MEDS: HYDROcodone/APAP 7.5-325MG 1 EACH TAB PO PRN (11:18)
--- NOTE | 2018-01-22 11:23 | CDI ---
Last Revision, June 2017 Documentation Clarification Form Date: 01/22/15 1116 From: Elizabet Cardoso RN, CCDS Admit Date: 01/06/2018 6:52:00 AM Patient Name: Braulio Andino Visit Number: [id number] ATTENTION: The Clinical Documentation Specialists (CDI) and [facility] Coding Staff appreciate your assistance in clarifying documentation. Please respond to the clarification below the line at the bottom and electronically sign. The CDI & [facility] Coding staff will review the response and follow-up if needed. Please note: Queries are made part of the Legal Health Record. If you have any questions, please contact the author of this message via ITS. Dr. Richards Documentation and location in medical record included: History/Risk Factors: Home Oxygen, chronic anemia, chronic systolic CHF, CKD stage 3, Home oxygen: per H&P Clinical Indicators: Vital signs: Temp 98.3, hr 79, rr 18, b/p 202/110, spo2 93% ra 01/21 Attending Lung/Breathing assessment:"Lungs: CTA b/l, no rhonchi, no rales , no accessory muscle use." ABG/CBG: pH 7.28 pCO2 45 pHCO3 21 Lactate -5.7 Treatment: Breathing tx: Duoneb inh TID Continuous Pulse ox: per unit protocol O2: maintained @ 2-4L NC In your professional opinion, can you please clarify if these findings signify one of the following conditions? Acuity: Chronic Specificity: Respiratory Failure, further specify (if known): With hypercapnia? With hypoxia? Other Diagnosis, please specify Unable to determine Please continue to document in your progress notes and discharge summary in order to capture severity of illness and risk of mortality. Include clinical findings that support your diagnosis. Chronic hypoxic respiratory failure MTDD
[2018-01-22 11:41] LABS: Glucose,Whole Blood 239 mg/dL (75-99)
--- NOTE | 2018-01-22 15:30 | PN ---
PROGRESS NOTE DATE OF SERVICE: 01/22/2018 REASON FOR FOLLOWUP: Fever. INTERVAL HISTORY: The patient was doing okay; however, did have a fever of 100.4 this morning, repeat has been 100.6. Patient is breathing comfortably. Denies having any chest pain or shortness of breath, no cough. No abdominal pain. His Elise catheter was discontinued this morning. The patient has not urinated since then. PHYSICAL EXAMINATION: Blood pressure 110/64 with a pulse of 62, temperature of 100.6. He is 94% on 4 L nasal cannula. General description is an elderly male, up in the chair in no distress. RESPIRATORY SYSTEM: Unlabored breathing, clear to auscultation anteriorly. HEART: S1, S2. Regular rate and rhythm. ABDOMEN: Soft, no tenderness. EXTREMITIES: 2+ edema of the feet. LABS: BUN of 35, creatinine 3.5. DIAGNOSTIC IMPRESSION AND PLAN: Patient with a new fever, low-grade with question of possible Elise catheter associated. The Elise has already been discontinued. Urine culture has been requested along with blood cultures and the CBC is stable. . Keep the patient on Augmentin. At this point, continue supportive care. MMODL / IJN: [id number] /
--- NOTE | 2018-01-22 15:50 | P.PN ---
Subjective Progress Note Date: 01/22/18 Principal diagnosis: chest pain patient is a 72-year-old -[place]ien male with a past medical history ofcoronary artery disease, systolic congestive heart failure, prior pancreatitis , multiple other medical comorbidities who presented to the emergency department with complaints of abdominal and chest pain. In the emergency department he was found to have a potassium of 5.9, low magnesium, and an elevated troponin of 0.38. He was admitted for further monitoring of his acute hyperkalemia, elevated troponin, and abdominal pain.he was started on IV fluids and nothing by mouth. He was seen by GI and diagnosed with acute pancreatitis secondary to alcoholic hepatitis. He was seen by cardiology and his elevated troponins were deemed likely secondary to renal insufficiency. He was diagnosed with diastolic congestive heart failure with acute exacerbation and had been on Lasix. He was seen by nephrology and diagnosed with a I likely secondary to ATN and hypercalcemia. He had been taken off of his angiotensin receptor chasidy. He was started on IV Lasix. His IV Lasix did not help with diuresis and he was ultimately started on a Lasix drip. His diet was slowly advanced for pancreatitis. He did start spiking fever and was seen by infectious disease on 05/16. He was started on Zosyn and a repeat CT abdomen and pelvis was ordered. CT abdomen and pelvis showed an infiltrate at the left lung base similar to old exam but no acute abdominal abnormality. One blood culture came back with staph epidermidis and was determined to be a likely contaminant. Chest x-ray and urinalysis were negative. His fevers were thought to be secondary to his acute pancreatitis. He continued to have worsening fluid overload as well as worsening renal function despite adjustments in his IV Lasix. He was subsequently started on hemodialysis on January 15 after a HD cath was placed in the right groin. His fevers abated. They attempted to hold dialysis and his creatinine increased again. Underwent HD on , 01/21, nad plans are for 01/22. He will also have outpatient HD on ,. Patient seen and examined at bedside. Feeling well today. No chest pain. Shortness of breath is better and swelling is going down. No nausea or vomiting and tolerating diet well. Feels relieved that his son will help facilitate getting his payment to the apartment complex on time. Aware that we are still waiting to find him placement. Objective - Vital Signs Vital signs: Vital Signs Temp 99.6 F 01/22/18 13:36 Pulse 62 01/22/18 13:36 Resp 20 01/22/18 13:36 BP 110/64 01/22/18 13:36 Pulse Ox 94 L 01/22/18 13:36 Intake & Output 01/21/18 01/22/18 01/22/18 18:59 06:59 18:59 Intake Total 1040 360 317 Output Total 200 75 Balance 1040 160 242 Weight 107.6 kg 106.5 kg Intake: IV 120 80 Sodium Chloride 0.9% 1, 120 80 000 ml @ 10 mls/hr IV . Q24H [facility] Rx#:[id number] Intake, IV Titration 800 Amount Sodium Chloride 0.9% 1, 800 000 ml @ 10 mls/hr IV . Q24H [facility] Rx#:[id number] Oral 240 240 237 Output: Urine 200 75 Other: Voiding Method Indwelling Catheter Indwelling Catheter - Exam General: non toxic, no distress, appears at stated age Derm: warm, dry Head: atraumatic, normocephalic, symmetric Eyes: EOMI, no lid lag, anicteric sclera Mouth: no lip lesion, mucus membranes moist Cardiovascular: S1S2 reg, no murmur, positive posterior tibial pulse bilateral, Lungs: Decreased breath sounds bilateral bases, no rhonchi, no rales , no accessory muscle use Abdominal: soft, nontender to palpation, no guarding, no appreciable organomegaly Ext: no gross muscle atrophy, 2+ edema, no contractures Neuro: CN II-XI grossly intact, no focal neuro deficits Psych: Alert, oriented, appropriate affect - Labs CBC & Chem 7: 01/19/18 07:07 01/21/18 15:10 Labs: Abnormal Lab Results - Last 24 Hours (Table) 01/21/18 01/21/18 01/21/18 Range/Units 15:10 16:49 20:48 Sodium 132 L (137-145) mmol/L Chloride 94 L (98-107) mmol/L BUN 35 H (9-20) mg/dL Creatinine 3.50 H (0.66-1.25) mg/dL Glucose 250 H (74-99) mg/dL POC Glucose (mg/dL) 253 H 189 H (75-99) mg/dL 01/22/18 01/22/18 Range/Units 06:52 11:13 Sodium (137-145) mmol/L Chloride (98-107) mmol/L BUN (9-20) mg/dL Creatinine (0.66-1.25) mg/dL Glucose (74-99) mg/dL POC Glucose (mg/dL) 162 H 239 H (75-99) mg/dL Assessment and Plan Assessment: Acute kidney injury on chronic kidney disease likely now will need hemodialysis -Nephrology recommendations -HD again tomorrow plan is for Friday/Friday/Friday -Has HD cath in place -Continue off Cozaar, Aldactone -Discontinue Elise catheter in anticipation of transitioning patient to rehab Acute exacerbation of diastolic congestive heart failure, ejection fraction 55- 60% with moderate pulmonary hypertension -Continue with Coreg -No LUCINDA inhibitor secondary to acute kidney injury -Fluid control with dialysis and IV Lasix. Transition to PO on discharge HTN, controlled with hypertensive emergency on admission -Continue with Coreg, hydralazine, procardia, and Imdur -Follow blood pressures Diabetes mellitus type 2 - Novolog 2 units breakfast and lunch and 4 units to dinner -Continue with Levemir 35 units daily and sliding scale Febrile event -Likely intra-abdominal source -ID recommendations appreciated -Currently on Augmentin for 3 more days Hepatitis C - currently on Mavyret has not been receiving this hospital stay as did not bring in from home. Chronic/resolved HLD Asthma COPD Acute pancreatitis, resolved Elevated troponin, flat Contaminated blood culture with staph epidermidis Hyperkalemia, resolved Hoping to discharge today if possible, awaiting placement DVT prophylaxis: Heparin Discussed with: Patient, nursing, case management Anticipated discharge: 01/[address]: SNF A total of 25 minutes was spent on the care of this complex patient more than 50 % of the time was spent in counseling and care coordination.
[2018-01-22 16:06] LABS: Basophils % (A) 0 %; Eosinophils # (A) 0.3 k/uL (0-0.7); Eosinophils % (A) 3 %; HCT 28.6 % (39.0-53.0); Hypochromasia Slight; Lymphocytes # (A) 1.6 k/uL (1.0-4.8); Lymphocytes % (A) 15 %; MCHC 31.5 g/dL (31.0-37.0); Mean Platelet Volume 9.1; Monocytes # (A) 0.6 k/uL (0-1.0); Monocytes % (A) 6 %; Neutrophils # (A) 7.7 k/uL (1.3-7.7); Neutrophils % (A) 74 %; Platelet Count 298 k/uL (150-450); RBC 3.11 m/uL (4.30-5.90); RDW 13.5 % (11.5-15.5); WBC 10.4 k/uL (3.8-10.6)
[2018-01-22 17:16] LABS: Glucose,Whole Blood 253 mg/dL (75-99)
[2018-01-22] MEDS ORDERED: DARBEPOETIN ALFA 40 MCG/0.4 ML SYRINGE SQ SCH (19:00)
--- NOTE | 2018-01-22 19:03 | PN ---
PROGRESS NOTE Patient is seen for followup for acute kidney injury. Patient remains on dialysis. He remains fluid-overloaded. He was being discharged to a detention; however, patient is currently awaiting insurance approval for antiviral medication at the detention. He has had no urine output. Patient will be dialyzed again tomorrow. He remains on IV Lasix and with an indwelling Elise catheter. On examination today, blood pressure this morning was 154/73, heart rate of 60 per minute. Patient is afebrile. EXAMINATION OF THE HEART: S1, S2. EXAMINATION OF LUNGS: Bilateral breath sounds are heard. ABDOMEN: Soft, non-tender. Examination of lower extremities shows edema 2+ bilaterally. STRAPPER exam is grossly intact. Labs show hemoglobin 9.0 g/dL. ASSESSMENT: 1. Acute kidney injury, currently dialysis-dependent. Urine output has been on the lower side. Patient is maintained on IV Lasix. We can switch to p.o. Lasix at the time of discharge. Patient is a Friday schedule. Currently he is being considered at the [facility] unit. 2. Acute pancreatitis, currently improved. 3. Volume overload. Continue to maintain UF of about 3 to 3.5 L with hemodialysis. 4. Anemia with no active bleeding noted. I will start the patient on Aranesp. Iron profile will be checked as well. PLAN: Hemodialysis in a.m. Check iron profile and start Aranesp. Continue to maintain patient on dialysis upon discharge. MMODL / DERRICKN: [id number] /
[2018-01-22 20:49] LABS: Appearance,Urine Turbid (Clear); Bacteria,Urine Rare /hpf; Bilirubin,Urine 1+ (Negative); Blood,Urine Small (Negative); Calcium Oxalate Crystals,Urine Occasional /hpf; Color,Urine Red; Glucose,Urine (UA) Trace (Negative); Hyaline Casts,Urine 76 /lpf (0-2); Ketones,Urine Trace (Negative); Leukocyte Esterase,Urine Large (Negative); Mucus,Urine Rare /hpf; Nitrite,Urine Negative (Negative); Protein,Urine 1+ (Negative); RBC,Urine 60 /hpf (0-5); Specific Gravity,Urine 1.024 (1.001-1.035); Squamous Epithelial Cell,Urine 38 /hpf (0-4); WBC,Urine 30 /hpf (0-5)
[2018-01-22 22:40] LABS: Glucose,Whole Blood 197 mg/dL (75-99)
[2018-01-23] MEDS: SODIUM CHLORIDE 0.9% 1,000 ML IV SCH (01:53)
[2018-01-23] MEDS: HEPARIN SODIUM,PORCINE 5,000 UNIT/ML 1 ML VIAL SQ SCH ×3 (01:53→16:45)
[2018-01-23 02:13] LABS: Iron Saturation 12.55 (15.00-50.00)
[2018-01-23] MEDS: INSULIN ASPART 100 UNIT/ML 1 ML 10 ML VIAL SQ SCH ×7 (07:32→22:48)
[2018-01-23] MEDS: CARVEDILOL 12.5 MG TAB PO SCH ×2 (07:33→16:45)
[2018-01-23] MEDS: MAVYRET PO SCH (07:34)
[2018-01-23] MEDS: PANTOPRAZOLE 40 MG TABLET PO SCH (07:34)
[2018-01-23] MEDS: IPRATROPIUM-ALBUTEROL 3 ML NEB INHALATION SCH ×3 (07:42→19:16)
[2018-01-23 07:54] LABS: Glucose,Whole Blood 169 mg/dL (75-99)
[2018-01-23] MEDS: FUROSEMIDE 10 MG/ML 10 ML VIAL IV SCH ×2 (08:31→22:48)
[2018-01-23] MEDS: AMOXIC-POT CLAV 500-125 MG 1 EACH TAB PO SCH ×2 (08:31→22:48)
[2018-01-23] MEDS: GABAPENTIN 100 MG CAP PO SCH ×3 (08:32→23:08)
[2018-01-23] MEDS: INSULIN DETEMIR 100 UNIT/ML 10 ML VIAL SQ SCH (08:32)
[2018-01-23] MEDS: NIFEdipine XL 30 MG TAB.ER.24 PO SCH (08:32)
[2018-01-23] MEDS: hydrALAZINE HCL 50 MG TAB PO SCH ×3 (08:32→22:48)
[2018-01-23] MEDS: ISOSORBIDE MONONITRATE ER 60 MG TAB.ER.24H PO SCH (08:32)
[2018-01-23] MEDS: MAGNESIUM OXIDE 400 MG TAB PO SCH (08:32)
--- NOTE | 2018-01-23 10:09 | CDI ---
Last Revision, June 2017 Documentation Clarification Form Date: 01/23/18 1004 From: Elizabet Cardoso RN, CCDS Admit Date: 01/06/2018 6:52:00 AM Patient Name: Braulio Andino Visit Number: [id number] ATTENTION: The Clinical Documentation Specialists (CDI) and [facility] Coding Staff appreciate your assistance in clarifying documentation. Please respond to the clarification below the line at the bottom and electronically sign. The CDI & [facility] Coding staff will review the response and follow-up if needed. Please note: Queries are made part of the Legal Health Record. If you have any questions, please contact the author of this message via ITS. Dr. Sally Wilks You are the only provider that has documented the patient has CKD, please provide further specificity if possible. History/Risk Factors: 01/08 Nephrology Consult: "Previous episode of acute kidney injury in September with serum Creatinine as high as 2.1 mg/dL. Previously it had been 3.7 in May of 2016. The patient's renal function improved significantly on his last admission." PMH: CAD, CHF, DM, HTN, chronic liver disease, renal insufficiency, chronic anemia, thrombocytopenia Clinical Indicators: 01/19-01/22 Attending Progress Note: "Acute kidney injury on chronic kidney disease likely now will need hemodialysis -Nephrology recommendations." Current BUN: 52/56/58/63/70/87/62/35 CR:2.4/3.1/3.9/4.3/2.95/3.2/6.26/3.5 GFR: ///20/18/8/17 3/18 Patients Baseline: BUN/CR/GFR: 24/1.56/44 Treatment: Dopamine drip @ 2.5 mcg/kg /min for renal perfusion Lasix Gtt @ 10 cc/hr IVF: 1L Bolus followed by 125 cc/hr decreased to KVO Hemodialysis In order to capture the severity of condition, please clarify if the condition signifies: CKD Stage 1 (GFR > 90) CKD Stage 2 (GFR 60-89) CKD Stage 3 (GFR 30-59) CKD Stage 4 (GFR 15-29) CKD Stage 5 (GFR <15) ESRD CKD ruled out Other, please specify Unable to determine Please continue to document in your progress notes and discharge summary in order to capture severity of illness and risk of mortality. Include clinical findings that support your diagnosis. MTDD
[2018-01-23 11:21] LABS: Glucose,Whole Blood 192 mg/dL (75-99)
[2018-01-23 12:04] VITALS: BMI 37.0
--- NOTE | 2018-01-23 17:25 | P.PN ---
Subjective Progress Note Date: 01/23/18 Principal diagnosis: chest pain patient is a 72-year-old -Serbian male with a past medical history ofcoronary artery disease, systolic congestive heart failure, prior pancreatitis , multiple other medical comorbidities who presented to the emergency department with complaints of abdominal and chest pain. In the emergency department he was found to have a potassium of 5.9, low magnesium, and an elevated troponin of 0.38. He was admitted for further monitoring of his acute hyperkalemia, elevated troponin, and abdominal pain.he was started on IV fluids and nothing by mouth. He was seen by GI and diagnosed with acute pancreatitis secondary to alcoholic hepatitis. He was seen by cardiology and his elevated troponins were deemed likely secondary to renal insufficiency. He was diagnosed with diastolic congestive heart failure with acute exacerbation and had been on Lasix. He was seen by nephrology and diagnosed with a I likely secondary to ATN and hypercalcemia. He had been taken off of his angiotensin receptor chasidy. He was started on IV Lasix. His IV Lasix did not help with diuresis and he was ultimately started on a Lasix drip. His diet was slowly advanced for pancreatitis. He did start spiking fever and was seen by infectious disease on 05/16. He was started on Zosyn and a repeat CT abdomen and pelvis was ordered. CT abdomen and pelvis showed an infiltrate at the left lung base similar to old exam but no acute abdominal abnormality. One blood culture came back with staph epidermidis and was determined to be a likely contaminant. Chest x-ray and urinalysis were negative. His fevers were thought to be secondary to his acute pancreatitis. He continued to have worsening fluid overload as well as worsening renal function despite adjustments in his IV Lasix. He was subsequently started on hemodialysis on January 15 after a HD cath was placed in the right groin. His fevers abated. They attempted to hold dialysis and his creatinine increased again. Underwent HD on , 01/20, 01/21. He will also have outpatient HD on ,,. Currently awaiting placement. Patient seen and examined at bedside. Doing well today. No complaints currently. Breathing is better. No chest pain. Appetite is good. Objective - Vital Signs Vital signs: Vital Signs Temp 98 F 01/23/18 15:33 Pulse 69 01/23/18 15:33 Resp 16 01/23/18 15:33 BP 162/69 01/23/18 15:33 Pulse Ox 100 01/23/18 15:33 Intake & Output 01/22/18 01/23/18 01/23/18 18:59 06:59 18:59 Intake Total 317 201 120 Output Total 75 100 Balance 242 101 120 Weight 106.5 kg 107.5 kg 107.5 kg Intake: IV 80 120 Sodium Chloride 0.9% 1, 80 120 000 ml @ 10 mls/hr IV . Q24H [facility] Rx#:[id number] Intake, IV Titration 81 120 Amount Sodium Chloride 0.9% 1, 81 120 000 ml @ 10 mls/hr IV . Q24H [facility] Rx#:[id number] Oral 237 Output: Urine 75 100 Other: Voiding Method Urinal Urinal # Voids 1 # Bowel Movements 1 - Exam General: non toxic, no distress, appears at stated age Derm: warm, dry Head: atraumatic, normocephalic, symmetric Eyes: EOMI, no lid lag, anicteric sclera Mouth: no lip lesion, mucus membranes moist Cardiovascular: S1S2 reg, no murmur, positive posterior tibial pulse bilateral, Lungs: CTA bilateral, no rhonchi, no rales , no accessory muscle use Abdominal: soft, nontender to palpation, no guarding, no appreciable organomegaly Ext: no gross muscle atrophy, 2+ edema, no contractures Neuro: CN II-XI grossly intact, no focal neuro deficits Psych: Alert, oriented, appropriate affect - Labs CBC & Chem 7: 01/22/18 15:52 01/21/18 15:10 Labs: Abnormal Lab Results - Last 24 Hours (Table) 01/21/18 01/22/18 01/22/18 Range/Units 15:10 20:07 21:46 POC Glucose (mg/dL) 197 H (75-99) mg/dL Iron 31 L (65-175) ug/dL Iron Saturation 12.55 L (15.00-50.00) Urine Protein 1+ H (Negative) Urine Glucose (UA) Trace H (Negative) Urine Ketones Trace H (Negative) Urine Blood Small H (Negative) Urine Bilirubin 1+ H (Negative) Ur Leukocyte Esterase Large H (Negative) Urine RBC 60 H (0-5) /hpf Urine WBC 30 H (0-5) /hpf Ur Squamous Epith Cells 38 H (0-4) /hpf Calcium Oxalate Crystal Occasional H (None) /hpf Urine Bacteria Rare H (None) /hpf Hyaline Casts 76 H (0-2) /lpf Urine Mucus Rare H (None) /hpf 01/23/18 01/23/18 Range/Units 07:23 11:18 POC Glucose (mg/dL) 169 H 192 H (75-99) mg/dL Iron (65-175) ug/dL Iron Saturation (15.00-50.00) Urine Protein (Negative) Urine Glucose (UA) (Negative) Urine Ketones (Negative) Urine Blood (Negative) Urine Bilirubin (Negative) Ur Leukocyte Esterase (Negative) Urine RBC (0-5) /hpf Urine WBC (0-5) /hpf Ur Squamous Epith Cells (0-4) /hpf Calcium Oxalate Crystal (None) /hpf Urine Bacteria (None) /hpf Hyaline Casts (0-2) /lpf Urine Mucus (None) /hpf Microbiology - Last 24 Hours (Table) 01/22/18 20:07 Urine Culture - Preliminary Urine,Clean Catch Assessment and Plan Assessment: Acute kidney injury on chronic kidney disease currently dialysis dependent -Nephrology recommendations -HD Friday/Friday/Friday -Has HD cath in place -Continue off Cozaar, Aldactone Acute exacerbation of diastolic congestive heart failure, ejection fraction 55- 60% with moderate pulmonary hypertension -Continue with Coreg -No LCUINDA inhibitor secondary to acute kidney injury -Fluid control with dialysis and IV Lasix. Transition to PO on discharge HTN, controlled with hypertensive emergency on admission -Continue with Coreg, hydralazine, procardia, and Imdur -Follow blood pressures Diabetes mellitus type 2 - Novolog 2 units breakfast and 4 units lunch and dinner -Continue with Levemir 35 units daily and sliding scale Febrile event -Likely intra-abdominal source -ID recommendations appreciated -Currently on Augmentin for 3 more days Hepatitis C - currently on Mavyret has not been receiving this hospital stay as did not bring in from home. Chronic/resolved HLD Asthma COPD Acute pancreatitis, resolved Elevated troponin, flat Contaminated blood culture with staph epidermidis Hyperkalemia, resolved awaiting placement. no safe to go home as not ambulatory and not getting out of bed. DVT prophylaxis: Heparin Discussed with: Patient, nursing, case management Anticipated discharge: 01/[address]: [facility] A total of 25 minutes was spent on the care of this complex patient more than 50 % of the time was spent in counseling and care coordination.
[2018-01-23 17:36] LABS: Glucose,Whole Blood 197 mg/dL (75-99)
--- NOTE | 2018-01-23 18:22 | PN ---
PROGRESS NOTE The patient is seen for followup for acute kidney injury. He remains hemodialysis- dependent with no significant urine output. The [facility] He has been accepted at a [facility] unit; however, there are issues with arrangements for penitentiary. EXAMINATION: Patient is comfortable. He denies any significant complaints. He is currently on a bedpan. Blood pressure this morning was 165/75, heart rate of 59 per minute. Patient is afebrile. HEART: S1, S2. LUNGS: Bilateral breath sounds are heard. Abdomen is soft, distended, nontender. Lower extremities show edema 2+ bilaterally. PLANE TENDER is grossly intact. Patient is moving all 4 extremities. LABS: Not available from today. ASSESSMENT: 1. Acute kidney injury, currently hemodialysis-dependent with decreased urine output. The patient will need to be maintained on dialysis as outpatient. He is scheduled for hemodialysis today in the hospital. 2. Hepatitis C. 3. Acute pancreatitis with no evidence of gallstones, most likely alcohol related, currently improved and tolerating oral intake. 4. Volume overload maintained on IV Lasix and having about 3-4 L of ultrafiltration with each hemodialysis treatment. 5. Hypertension, partly volume sensitive. Blood pressure remains elevated; however, it had improved to systolic of 110 and 126 yesterday evening. Expect improvement post dialysis today. PLAN: Hemodialysis today. Next dialysis will be Friday. Awaiting [facility]. MMODL / IJN: [id number] /
[2018-01-23 22:39] LABS: Glucose,Whole Blood 165 mg/dL (75-99)
[2018-01-24] MEDS: HEPARIN SODIUM,PORCINE 5,000 UNIT/ML 1 ML VIAL SQ SCH ×3 (00:29→17:18)
[2018-01-24] MEDS: SODIUM CHLORIDE 0.9% 1,000 ML IV SCH ×2 (01:09→20:43)
[2018-01-24 06:47] LABS: Glucose,Whole Blood 161 mg/dL (75-99)
[2018-01-24 07:42] LABS: HCT 27.6 % (39.0-53.0); HGB 8.8 gm/dL (13.0-17.5); MCH 28.5 pg (25.0-35.0); Mean Platelet Volume 9.4; Platelet Count 308 k/uL (150-450); RDW 13.8 % (11.5-15.5); WBC 9.9 k/uL (3.8-10.6)
[2018-01-24] MEDS: IPRATROPIUM-ALBUTEROL 3 ML NEB INHALATION SCH ×3 (08:10→21:04)
[2018-01-24] MEDS: INSULIN ASPART 100 UNIT/ML 1 ML 10 ML VIAL SQ SCH ×7 (09:08→21:04)
[2018-01-24] MEDS: FUROSEMIDE 10 MG/ML 10 ML VIAL IV SCH ×2 (09:08→20:41)
[2018-01-24] MEDS: CARVEDILOL 12.5 MG TAB PO SCH ×2 (09:09→17:18)
[2018-01-24] MEDS: AMOXIC-POT CLAV 500-125 MG 1 EACH TAB PO SCH ×2 (09:10→20:41)
[2018-01-24] MEDS: PANTOPRAZOLE 40 MG TABLET PO SCH (09:11)
[2018-01-24] MEDS: GABAPENTIN 100 MG CAP PO SCH ×3 (09:11→20:42)
[2018-01-24] MEDS: NIFEdipine XL 30 MG TAB.ER.24 PO SCH (09:13)
[2018-01-24] MEDS: MAGNESIUM OXIDE 400 MG TAB PO SCH (09:13)
[2018-01-24] MEDS: ISOSORBIDE MONONITRATE ER 60 MG TAB.ER.24H PO SCH (09:13)
[2018-01-24] MEDS: INSULIN DETEMIR 100 UNIT/ML 10 ML VIAL SQ SCH (09:14)
[2018-01-24 12:00] LABS: Glucose,Whole Blood 314 mg/dL (75-99)
--- NOTE | 2018-01-24 12:29 | P.PN ---
Subjective Patient is seen in follow-up for acute kidney injury currently hemodialysis dependent. He is maintained on hemodialysis on a Friday schedule. Patient's currently being treated for hepatitis C. Creatinine in September 2017 was in the range of 1-1.5. Patient has been oliguric. He was also noted to have pancreatitis and is now tolerating oral intake. Vital signs are stable. General: The patient appeared well nourished and normally developed. HEENT: Head exam is unremarkable. Neck is without jugular venous distension. LUNGS: Lungs are clear to auscultation and percussion. Breath sounds decreased. HEART: Rate and Rhythm are regular. First and second heart sounds normal. No murmurs, rubs or gallops. ABDOMEN: Abdominal exam reveals normal bowel sounds. Non-tender and non- distended. No evidence of peritonitis. EXTREMITITES: 1+ edema. Objective - Vital Signs Vital signs: Vital Signs Temp 98.8 F 01/24/18 08:00 Pulse 70 01/24/18 08:20 Resp 20 01/24/18 08:00 BP 161/72 01/24/18 08:00 Pulse Ox 99 01/24/18 08:12 Intake & Output 01/23/18 01/24/18 01/24/18 18:59 06:59 18:59 Intake Total 120 1205 Balance 120 1205 Weight 107.5 kg 107.5 kg Intake: Intake, IV Titration 120 105 Amount Sodium Chloride 0.9% 1, 120 105 000 ml @ 10 mls/hr IV . Q24H [facility] Rx#:[id number] Oral 1100 Other: Voiding Method Urinal Urinal # Voids 1 1 # Bowel Movements 1 - Labs CBC & Chem 7: 01/24/18 07:16 01/21/18 15:10 Labs: Abnormal Lab Results - Last 24 Hours (Table) 01/23/18 01/23/18 01/24/18 Range/Units 17:30 22:37 06:44 RBC (4.30-5.90) m/uL Hgb (13.0-17.5) gm/dL Hct (39.0-53.0) % POC Glucose (mg/dL) 197 H 165 H 161 H (75-99) mg/dL 01/24/18 01/24/18 Range/Units 07:16 11:46 RBC 3.10 L (4.30-5.90) m/uL Hgb 8.8 L (13.0-17.5) gm/dL Hct 27.6 L (39.0-53.0) % POC Glucose (mg/dL) 314 H (75-99) mg/dL Microbiology - Last 24 Hours (Table) 01/22/18 20:07 Urine Culture - Preliminary Urine,Clean Catch Coagulase Negative Staph Gram Neg Bacilli 01/22/18 15:52 Blood Culture - Preliminary Blood No Growth after 24 hours Assessment and Plan Plan: Assessment: 1. Acute kidney injury currently hemodialysis dependent maintained on a Friday schedule. He is oliguric. Etiology is ATN. Creatinine in September 2017 was in the range of 1-1.5. 2. Hepatitis C. 3. Acute pancreatitis now tolerating oral intake. 4. Diastolic CHF with moderate pulmonary hypertension. 5. Volume overload. Improving with ultrafiltration. 6. Anemia with iron deficiency noted. 7. Benign hypertension. 8. Insulin-dependent diabetes mellitus. Plan: Patient will need an IJ catheter and the groin catheter removed. Next hemodialysis on Friday. Ferrlecit 125 mg IV daily for 3 days. First dose today. Add Aranesp. Maintain IV Lasix. Strict is and os. Patient being set up for outpatient hemodialysis as well as outpatient [facility] placement.
--- NOTE | 2018-01-24 12:35 | P.PN ---
Subjective Progress Note Date: 01/24/18 Principal diagnosis: chest pain Patient is a 72-year-old -[place] male with a past medical history ofcoronary artery disease, systolic congestive heart failure, prior pancreatitis , multiple other medical comorbidities who presented to the emergency department with complaints of abdominal and chest pain. In the emergency department he was found to have a potassium of 5.9, low magnesium, and an elevated troponin of 0.38. He was admitted for further monitoring of his acute hyperkalemia, elevated troponin, and abdominal pain.he was started on IV fluids and nothing by mouth. He was seen by GI and diagnosed with acute pancreatitis secondary to alcoholic hepatitis. He was seen by cardiology and his elevated troponins were deemed likely secondary to renal insufficiency. He was diagnosed with diastolic congestive heart failure with acute exacerbation and had been on Lasix. He was seen by nephrology and diagnosed with a I likely secondary to ATN and hypercalcemia. He had been taken off of his angiotensin receptor chasidy. He was started on IV Lasix. His IV Lasix did not help with diuresis and he was ultimately started on a Lasix drip. His diet was slowly advanced for pancreatitis. He did start spiking fever and was seen by infectious disease on 05/16. He was started on Zosyn and a repeat CT abdomen and pelvis was ordered. CT abdomen and pelvis showed an infiltrate at the left lung base similar to old exam but no acute abdominal abnormality. One blood culture came back with staph epidermidis and was determined to be a likely contaminant. Chest x-ray and urinalysis were negative. His fevers were thought to be secondary to his acute pancreatitis. He continued to have worsening fluid overload as well as worsening renal function despite adjustments in his IV Lasix. He was subsequently started on hemodialysis on January 15 after a HD cath was placed in the right groin. His fevers abated. They attempted to hold dialysis and his creatinine increased again. Underwent HD on , 01/20, and 01/21. He will also have outpatient HD on ,,. Currently awaiting placement. Patient seen and examined at bedside. Tired today after sitting on the edge of the bed. Frustrated with being in the hospital. No chest pain or shortness of breath. No pain currently. Denies constipation. Objective - Vital Signs Vital signs: Vital Signs Temp 98.8 F 01/24/18 08:00 Pulse 70 01/24/18 08:20 Resp 20 01/24/18 08:00 BP 161/72 01/24/18 08:00 Pulse Ox 99 01/24/18 08:12 Intake & Output 01/23/18 01/24/18 01/24/18 18:59 06:59 18:59 Intake Total 120 1205 Balance 120 1205 Weight 107.5 kg 107.5 kg Intake: Intake, IV Titration 120 105 Amount Sodium Chloride 0.9% 1, 120 105 000 ml @ 10 mls/hr IV . [facility] Rx#:[id number] Oral 1100 Other: Voiding Method Urinal Urinal # Voids 1 1 # Bowel Movements 1 - Exam General: non toxic, no distress, appears at stated age Derm: warm, dry Head: atraumatic, normocephalic, symmetric Eyes: EOMI, no lid lag, anicteric sclera Mouth: no lip lesion, mucus membranes moist Cardiovascular: S1S2 reg, no murmur, positive posterior tibial pulse bilateral, Lungs: decreased bs b/l bases, no rhonchi, no rales , no accessory muscle use Abdominal: soft, nontender to palpation, no guarding, no appreciable organomegaly Ext: no gross muscle atrophy, 2+ edema, no contractures Neuro: CN II-XI grossly intact, no focal neuro deficits Psych: Alert, oriented, appropriate affect - Labs CBC & Chem 7: 01/24/18 07:16 01/21/18 15:10 Labs: Abnormal Lab Results - Last 24 Hours (Table) 01/23/18 01/23/18 01/24/18 Range/Units 17:30 22:37 06:44 RBC (4.30-5.90) m/uL Hgb (13.0-17.5) gm/dL Hct (39.0-53.0) % POC Glucose (mg/dL) 197 H 165 H 161 H (75-99) mg/dL 01/24/18 01/24/18 Range/Units 07:16 11:46 RBC 3.10 L (4.30-5.90) m/uL Hgb 8.8 L (13.0-17.5) gm/dL Hct 27.6 L (39.0-53.0) % POC Glucose (mg/dL) 314 H (75-99) mg/dL Microbiology - Last 24 Hours (Table) 01/22/18 20:07 Urine Culture - Preliminary Urine,Clean Catch Coagulase Negative Staph Gram Neg Bacilli 01/22/18 15:52 Blood Culture - Preliminary Blood No Growth after 24 hours Assessment and Plan Assessment: Acute kidney injury on chronic kidney disease currently dialysis dependent -Nephrology recommendations -HD Friday/Friday/Friday -Has HD cath in place -Continue off Cozaar, Aldactone Acute exacerbation of diastolic congestive heart failure, ejection fraction 55- 60% with moderate pulmonary hypertension -Continue with Coreg -No LUCINDA inhibitor secondary to acute kidney injury -Fluid control with dialysis and IV Lasix. Transition to PO on discharge HTN, controlled with hypertensive emergency on admission -Continue with Coreg, hydralazine, procardia, and Imdur -Follow blood pressures Diabetes mellitus type 2 - Novolog 2 units breakfast and 4 units lunch and dinner -Continue with Levemir 35 units daily and sliding scale Febrile event -Likely intra-abdominal source -ID recommendations appreciated -Currently on Augmentin for 2 more days Hepatitis C - currently on Mavyret has not been receiving this hospital stay as did not bring in from home. Chronic/resolved HLD Asthma COPD Acute pancreatitis, resolved Elevated troponin, flat Contaminated blood culture with staph epidermidis Hyperkalemia, resolved Awaiting placement. Not safe to go home as not ambulatory and not getting out of bed. DVT prophylaxis: Heparin Discussed with: Patient, nursing, case management Anticipated discharge: 01/[address]: [facility] A total of 25 minutes was spent on the care of this complex patient more than 50 % of the time was spent in counseling and care coordination.
[2018-01-24] MEDS: hydrALAZINE HCL 50 MG TAB PO SCH ×3 (13:15→20:41)
[2018-01-24 17:13] LABS: Glucose,Whole Blood 148 mg/dL (75-99)
[2018-01-24] MEDS: SODIUM FERRIC GLUCONAT-SUCROSE 125 MG in SODIUM CHLORIDE 0.9% 100 ML IVPB SCH (18:02)
[2018-01-24] MEDS: MAVYRET PO SCH (18:19)
[2018-01-24] MEDS: ACETAMINOPHEN TAB 325 MG TAB PO PRN (21:05)
[2018-01-24 21:24] LABS: Glucose,Whole Blood 158 mg/dL (75-99)
[2018-01-25] MEDS: HEPARIN SODIUM,PORCINE 5,000 UNIT/ML 1 ML VIAL SQ SCH ×3 (01:12→16:12)
[2018-01-25 06:54] LABS: Glucose,Whole Blood 182 mg/dL (75-99)
[2018-01-25] MEDS: IPRATROPIUM-ALBUTEROL 3 ML NEB INHALATION SCH ×3 (07:18→21:36)
[2018-01-25] MEDS: PANTOPRAZOLE 40 MG TABLET PO SCH (07:46)
[2018-01-25] MEDS: INSULIN ASPART 100 UNIT/ML 1 ML 10 ML VIAL SQ SCH ×7 (07:46→21:35)
[2018-01-25] MEDS: CARVEDILOL 12.5 MG TAB PO SCH ×2 (07:46→17:48)
[2018-01-25] MEDS: hydrALAZINE HCL 50 MG TAB PO SCH ×3 (10:12→21:41)
[2018-01-25] MEDS: MAGNESIUM OXIDE 400 MG TAB PO SCH (10:12)
[2018-01-25] MEDS: FUROSEMIDE 10 MG/ML 10 ML VIAL IV SCH ×2 (10:12→21:41)
[2018-01-25] MEDS: AMOXIC-POT CLAV 500-125 MG 1 EACH TAB PO SCH ×2 (10:13→22:48)
[2018-01-25] MEDS: ISOSORBIDE MONONITRATE ER 60 MG TAB.ER.24H PO SCH (10:13)
[2018-01-25] MEDS: GABAPENTIN 100 MG CAP PO SCH ×3 (10:13→21:41)
[2018-01-25] MEDS: INSULIN DETEMIR 100 UNIT/ML 10 ML VIAL SQ SCH (10:17)
[2018-01-25] MEDS: MAVYRET PO SCH (10:30)
[2018-01-25] MEDS: SODIUM FERRIC GLUCONAT-SUCROSE 125 MG in SODIUM CHLORIDE 0.9% 100 ML IVPB SCH (10:44)
[2018-01-25 11:30] LABS: Glucose,Whole Blood 231 mg/dL (75-99)
--- NOTE | 2018-01-25 11:57 | P.PN ---
Subjective Patient is seen in follow-up for acute kidney injury currently hemodialysis dependent. He is maintained on hemodialysis on a Friday schedule. Patient's currently being treated for hepatitis C. Creatinine in September 2017 was in the range of 1-1.5. Patient has been oliguric. He was also noted to have pancreatitis and is now tolerating oral intake. Vital signs are stable. General: The patient appeared well nourished and normally developed. HEENT: Head exam is unremarkable. Neck is without jugular venous distension. LUNGS: Lungs are clear to auscultation and percussion. Breath sounds decreased. HEART: Rate and Rhythm are regular. First and second heart sounds normal. No murmurs, rubs or gallops. ABDOMEN: Abdominal exam reveals normal bowel sounds. Non-tender and non- distended. No evidence of peritonitis. EXTREMITITES: 1+ edema. Objective - Vital Signs Vital signs: Vital Signs Temp 98.5 F 01/25/18 08:00 Pulse 96 01/25/18 08:00 Resp 20 01/25/18 08:00 BP 171/75 01/25/18 08:00 Pulse Ox 96 01/25/18 01:14 Intake & Output 01/24/18 01/25/18 01/25/18 18:59 06:59 18:59 Intake Total 570 237 Output Total 200 Balance 370 237 Intake: Intake, IV Titration 30 Amount Sodium Chloride 0.9% 1, 30 000 ml @ 10 mls/hr IV . Q24H [facility] Rx#:[id number] Oral 540 237 Output: Urine 200 Other: Voiding Method Urinal # Voids 1 # Bowel Movements 1 # Emeses 0 - Labs CBC & Chem 7: 01/24/18 07:16 01/21/18 15:10 Labs: Abnormal Lab Results - Last 24 Hours (Table) 01/24/18 01/24/18 01/24/18 Range/Units 11:46 16:54 20:40 POC Glucose (mg/dL) 314 H 148 H 158 H (75-99) mg/dL 01/25/18 01/25/18 Range/Units 06:52 11:20 POC Glucose (mg/dL) 182 H 231 H (75-99) mg/dL Microbiology - Last 24 Hours (Table) 01/22/18 20:07 Urine Culture - Final Urine,Clean Catch Staphylococcus epidermidis Escherichia coli 01/22/18 15:52 Blood Culture - Preliminary Blood No Growth after 48 hours Assessment and Plan Plan: Assessment: 1. Acute kidney injury currently hemodialysis dependent maintained on a Friday schedule. He is oliguric. Etiology is ATN. Creatinine in September 2017 was in the range of 1-1.5. 2. Hepatitis C. 3. Acute pancreatitis now tolerating oral intake. 4. Diastolic CHF with moderate pulmonary hypertension. 5. Volume overload. Improving with ultrafiltration. 6. Anemia with iron deficiency noted. 7. Benign hypertension. 8. Insulin-dependent diabetes mellitus. Plan: Next hemodialysis on Friday. Ferrlecit 125 mg IV daily for 3 days. Second dose today. Maintain Aranesp. Maintain IV Lasix. Strict is and os. Patient being set up for outpatient hemodialysis as well as outpatient [facility] placement.
--- NOTE | 2018-01-25 15:11 | P.PN ---
Subjective Progress Note Date: 01/25/18 Principal diagnosis: chest pain Patient is a 72-year-old -[place] male with a past medical history ofcoronary artery disease, systolic congestive heart failure, prior pancreatitis , multiple other medical comorbidities who presented to the emergency department with complaints of abdominal and chest pain. In the emergency department he was found to have a potassium of 5.9, low magnesium, and an elevated troponin of 0.38. He was admitted for further monitoring of his acute hyperkalemia, elevated troponin, and abdominal pain.he was started on IV fluids and nothing by mouth. He was seen by GI and diagnosed with acute pancreatitis secondary to alcoholic hepatitis. He was seen by cardiology and his elevated troponins were deemed likely secondary to renal insufficiency. He was diagnosed with diastolic congestive heart failure with acute exacerbation and had been on Lasix. He was seen by nephrology and diagnosed with a I likely secondary to ATN and hypercalcemia. He had been taken off of his angiotensin receptor chasidy. He was started on IV Lasix. His IV Lasix did not help with diuresis and he was ultimately started on a Lasix drip. His diet was slowly advanced for pancreatitis. He did start spiking fever and was seen by infectious disease on 05/16. He was started on Zosyn and a repeat CT abdomen and pelvis was ordered. CT abdomen and pelvis showed an infiltrate at the left lung base similar to old exam but no acute abdominal abnormality. One blood culture came back with staph epidermidis and was determined to be a likely contaminant. Chest x-ray and urinalysis were negative. His fevers were thought to be secondary to his acute pancreatitis. He continued to have worsening fluid overload as well as worsening renal function despite adjustments in his IV Lasix. He was subsequently started on hemodialysis on January 15 after a HD cath was placed in the right groin. His fevers abated. They attempted to hold dialysis and his creatinine increased again. Underwent HD on , 01/20, and 01/21. He will also have outpatient HD on ,,. Currently awaiting placement. he was transitioned to Augmenting. Her developed one fever on 01/22 and UA was check culture whos E coli and stpah epi but possible contaminant continue with augment. Patient seen and examined at bedside. Overwhelmed and feeling like he is never going to get home- long discussion had about plan of care and goal is for rehab and then home. Up in chair. No chest pain, breathing is at baseline, good appetite and swelling is getting better. Objective - Vital Signs Vital signs: Vital Signs Temp 98.9 F 01/25/18 14:13 Pulse 68 01/25/18 14:13 Resp 16 01/25/18 14:13 BP 118/67 01/25/18 14:13 Pulse Ox 95 01/25/18 14:13 Intake & Output 01/24/18 01/25/18 01/25/18 18:59 06:59 18:59 Intake Total 570 377 Output Total 200 Balance 370 377 Intake: Intake, IV Titration 30 Amount Sodium Chloride 0.9% 1, 30 000 ml @ 10 mls/hr IV . Q24H [facility] Rx#:[id number] Oral 540 377 Output: Urine 200 Other: Voiding Method Urinal # Voids 1 # Bowel Movements 1 # Emeses 0 - Exam General: non toxic, no distress, appears at stated age Derm: warm, dry Head: atraumatic, normocephalic, symmetric Eyes: EOMI, no lid lag, anicteric sclera Mouth: no lip lesion, mucus membranes moist Cardiovascular: S1S2 reg, no murmur, positive posterior tibial pulse bilateral, Lungs: decreased bs b/l bases, no rhonchi, no rales , no accessory muscle use Abdominal: soft, nontender to palpation, no guarding, no appreciable organomegaly Ext: no gross muscle atrophy, 2+ edema, no contractures Neuro: CN II-XI grossly intact, no focal neuro deficits Psych: Alert, oriented, appropriate affect - Labs CBC & Chem 7: 01/24/18 07:16 01/21/18 15:10 Labs: Abnormal Lab Results - Last 24 Hours (Table) 01/24/18 01/24/18 01/25/18 Range/Units 16:54 20:40 06:52 POC Glucose (mg/dL) 148 H 158 H 182 H (75-99) mg/dL 01/25/18 Range/Units 11:20 POC Glucose (mg/dL) 231 H (75-99) mg/dL Microbiology - Last 24 Hours (Table) 01/22/18 20:07 Urine Culture - Final Urine,Clean Catch Staphylococcus epidermidis Escherichia coli 01/22/18 15:52 Blood Culture - Preliminary Blood No Growth after 48 hours Assessment and Plan Assessment: Acute kidney injury on chronic kidney disease currently dialysis dependent -Nephrology recommendations -HD Friday/Friday/Friday -Has HD cath in place, d/w Dr. Redmond and this is a permanent cath -Continue off Cozaar, Aldactone - receiving IV iron UA with staph epi and e. coli, catch appears dirty - please ask ID to re-eval on 01/26 - Augmentin in place - check CBC in AM Acute exacerbation of diastolic congestive heart failure, ejection fraction 55- 60% with moderate pulmonary hypertension -Continue with Coreg -No LUCINDA inhibitor secondary to acute kidney injury -Fluid control with dialysis and IV Lasix. Transition to PO on discharge Anemia of chronic disease - IV iron per nephro - follow CBC HTN, controlled with hypertensive emergency on admission -Continue with Coreg, hydralazine, procardia, and Imdur -Follow blood pressures Diabetes mellitus type 2 - Novolog 2 units breakfast and 4 units lunch and dinner -Continue with Levemir 35 units daily and sliding scale Febrile event -Likely intra-abdominal source -ID recommendations appreciated -Currently on Augmentin for 1 more day Hepatitis C - currently on Mavyret has not been receiving this hospital stay as did not bring in from home. Chronic/resolved HLD Asthma COPD Acute pancreatitis, resolved Elevated troponin, flat Contaminated blood culture with staph epidermidis Hyperkalemia, resolved Awaiting placement. Not safe to go home as not ambulatory and not getting out of bed. Need final ID evaluation before discharge DVT prophylaxis: Heparin Discussed with: Patient, nursing, case management Anticipated discharge: 01/[address] A total of 25 minutes was spent on the care of this complex patient more than 50 % of the time was spent in counseling and care coordination.
[2018-01-25 17:19] LABS: Glucose,Whole Blood 90 mg/dL (75-99)
[2018-01-25 21:25] LABS: Glucose,Whole Blood 133 mg/dL (75-99)
[2018-01-26] MEDS: SODIUM CHLORIDE 0.9% 1,000 ML IV SCH (00:32)
[2018-01-26] MEDS: HEPARIN SODIUM,PORCINE 5,000 UNIT/ML 1 ML VIAL SQ SCH ×2 (00:32→11:20)
[2018-01-26 06:52] LABS: Glucose,Whole Blood 168 mg/dL (75-99)
[2018-01-26] MEDS: IPRATROPIUM-ALBUTEROL 3 ML NEB INHALATION SCH ×2 (07:11→13:40)
[2018-01-26 07:23] LABS: HCT 26.9 % (39.0-53.0); HGB 8.4 gm/dL (13.0-17.5); Hypochromasia Slight; MCH 28.2 pg (25.0-35.0); MCHC 31.2 g/dL (31.0-37.0); MCV 90.2 fL (80.0-100.0); Mean Platelet Volume 8.8; Platelet Count 257 k/uL (150-450); RBC 2.99 m/uL (4.30-5.90); RDW 13.7 % (11.5-15.5); WBC 9.7 k/uL (3.8-10.6)
[2018-01-26 08:05] LABS: Calcium 9.1 mg/dL (8.4-10.2); Phosphorus 5.8 mg/dL (2.5-4.5)
[2018-01-26] MEDS ORDERED: INSULIN DETEMIR 100 UNIT/ML 10 ML VIAL SQ SCH (09:00)
[2018-01-26] MEDS: INSULIN ASPART 100 UNIT/ML 1 ML 10 ML VIAL SQ SCH ×4 (09:11→13:08)
--- NOTE | 2018-01-26 11:09 | P.PN ---
Subjective Patient is seen in follow-up for acute kidney injury currently hemodialysis dependent. He is maintained on hemodialysis on a Friday schedule. Patient's currently being treated for hepatitis C. Creatinine in September 2017 was in the range of 1-1.5. Patient has been oliguric. He was also noted to have pancreatitis and is now tolerating oral intake. Currently seen was undergoing hemodialysis. Vital signs are stable. General: The patient appeared well nourished and normally developed. HEENT: Head exam is unremarkable. Neck is without jugular venous distension. LUNGS: Lungs are clear to auscultation and percussion. Breath sounds decreased. HEART: Rate and Rhythm are regular. First and second heart sounds normal. No murmurs, rubs or gallops. ABDOMEN: Abdominal exam reveals normal bowel sounds. Non-tender and non- distended. No evidence of peritonitis. EXTREMITITES: 1+ edema. Objective - Vital Signs Vital signs: Vital Signs Temp 99.3 F 01/26/18 00:40 Pulse 88 01/26/18 07:21 Resp 20 01/26/18 03:40 BP 143/71 01/26/18 00:40 Pulse Ox 99 01/26/18 00:40 Intake & Output 01/25/18 01/26/18 01/26/18 18:59 06:59 18:59 Intake Total 1014 160 Balance 1014 160 Weight 106.5 kg Intake: IV 160 Sodium Chloride 0.9% 1, 160 000 ml @ 10 mls/hr IV . Q24H [facility] Rx#:[id number] Intake, IV Titration 400 Amount IV Fluid Continuation 700 300 ml @ 0 mls/hr IV .[facility] Rx#:[id number] Sodium Ferric Gluconat- 100 Sucrose 125 mg In Sodium Chloride 0.9% 100 ml @ 100 mls/hr IVPB DAILY [facility] Rx#:[id number] Oral 614 Other: Voiding Method Urinal - Labs CBC & Chem 7: 01/26/18 06:46 01/26/18 06:46 Labs: Abnormal Lab Results - Last 24 Hours (Table) 01/25/18 01/25/18 01/26/18 Range/Units 11:20 21:22 06:45 RBC (4.30-5.90) m/uL Hgb (13.0-17.5) gm/dL Hct (39.0-53.0) % Sodium (137-145) mmol/L Potassium (3.5-5.1) mmol/L Chloride (98-107) mmol/L BUN (9-20) mg/dL Creatinine (0.66-1.25) mg/dL Glucose (74-99) mg/dL POC Glucose (mg/dL) 231 H 133 H 168 H (75-99) mg/dL Phosphorus (2.5-4.5) mg/dL 01/26/18 01/26/18 Range/Units 06:46 06:46 RBC 2.99 L (4.30-5.90) m/uL Hgb 8.4 L (13.0-17.5) gm/dL Hct 26.9 L (39.0-53.0) % Sodium 132 L (137-145) mmol/L Potassium 6.0 H (3.5-5.1) mmol/L Chloride 97 L (98-107) mmol/L BUN 55 H (9-20) mg/dL Creatinine 5.27 H* (0.66-1.25) mg/dL Glucose 159 H (74-99) mg/dL POC Glucose (mg/dL) (75-99) mg/dL Phosphorus 5.8 H (2.5-4.5) mg/dL Microbiology - Last 24 Hours (Table) 01/22/18 15:52 Blood Culture - Preliminary Blood No Growth after 72 hours Assessment and Plan Plan: Assessment: 1. Acute kidney injury currently hemodialysis dependent maintained on a Friday schedule. He is oliguric. Etiology is ATN. Creatinine in September 2017 was in the range of 1-1.5. 2. Hepatitis C. 3. Acute pancreatitis now tolerating oral intake. 4. Diastolic CHF with moderate pulmonary hypertension. 5. Volume overload. Improving with ultrafiltration. 6. Anemia with iron deficiency noted. 7. Benign hypertension. 8. Insulin-dependent diabetes mellitus. 9. Hyperkalemia secondary to acute kidney injury. Expect improvement postdialysis. 10. Hyperphosphatemia secondary to acute kidney injury. Plan: Currently seen while undergoing hemodialysis. Next treatment on Friday. Ferrlecit 125 mg IV daily for 3 days. Third dose today. Add Renvela with meals. Maintain Aranesp. Maintain IV Lasix. Strict is and os. Patient being set up for outpatient hemodialysis as well as outpatient halfway placement.
[2018-01-26] MEDS: CARVEDILOL 12.5 MG TAB PO SCH (11:19)
[2018-01-26] MEDS: FUROSEMIDE 10 MG/ML 10 ML VIAL IV SCH (11:20)
[2018-01-26] MEDS: AMOXIC-POT CLAV 500-125 MG 1 EACH TAB PO SCH (11:20)
[2018-01-26] MEDS: PANTOPRAZOLE 40 MG TABLET PO SCH (11:20)
[2018-01-26] MEDS: GABAPENTIN 100 MG CAP PO SCH (11:20)
[2018-01-26] MEDS: hydrALAZINE HCL 50 MG TAB PO SCH (11:21)
[2018-01-26] MEDS: ISOSORBIDE MONONITRATE ER 60 MG TAB.ER.24H PO SCH (11:21)
[2018-01-26] MEDS: MAVYRET PO SCH (11:21)
[2018-01-26 11:22] LABS: Glucose,Whole Blood 230 mg/dL (75-99)
[2018-01-26] MEDS: MAGNESIUM OXIDE 400 MG TAB PO SCH (11:22)
[2018-01-26] MEDS: SODIUM FERRIC GLUCONAT-SUCROSE 125 MG in SODIUM CHLORIDE 0.9% 100 ML IVPB SCH (11:22)
[2018-01-26] MEDS ORDERED: SEVELAMER 800 MG TAB PO SCH (12:30)
[2018-01-26 14:41] VITALS: BP 154/84; RESP 16; TEMP 97.6
[2018-01-26 15:37] VITALS: PULSE 69
--- NOTE | 2018-01-26 17:35 | P.DS ---
Providers Date of admission: 01/06/18 06:52 Attending physician: Tanya Roy MD Consults: 01/06/18 06:49 Consult Physician Routine Consulting Provider: Jarett Lopez Consult Reason/Comments: cp Do you want consulting provider notified?: Yes 01/06/18 06:50 Consult Physician Routine Consulting Provider: Natan Dhillon Consult Reason/Comments: iv access Do you want consulting provider notified?: Yes 01/07/18 11:58 Consult Physician Routine Consulting Provider: Marilu Rojas Consult Reason/Comments: elevated bun and creatinine Do you want consulting provider notified?: Yes 01/12/18 11:56 Consult Physician Routine Consulting Provider: Yoli Le Consult Reason/Comments: fever Do you want consulting provider notified?: Yes 01/15/18 11:21 Consult Physician Routine Consulting Provider: Remberto Dhillon Consult Reason/Comments: Dialysis Catheter Placement Do you want consulting provider notified?: Yes 01/21/18 15:13 Consult Physician Routine Consulting Provider: Alexy Interiano Consult Reason/Comments: inpatient rehab evaluation Do you want consulting provider notified?: Yes Primary care physician: Physician Nonstaff - Discharge Diagnosis(es) (1) ESRD (end stage renal disease) on dialysis Status: Acute (2) Acute pancreatitis Status: Acute (3) Acute on chronic diastolic (congestive) heart failure Status: Acute (4) Type 2 diabetes mellitus with peripheral neuropathy Status: Acute (5) Hypertensive emergency Status: Acute (6) Hyperkalemia Status: Acute (7) Elevated troponin Status: Acute Hospital Course: Patient is a 72-year-old -British male with a past medical history ofcoronary artery disease, systolic congestive heart failure, prior pancreatitis , multiple other medical comorbidities who presented to the emergency department with complaints of abdominal and chest pain. In the emergency department he was found to have a potassium of 5.9, low magnesium, and an elevated troponin of 0.38. He was admitted for further monitoring of his acute hyperkalemia, elevated troponin, and abdominal pain.he was started on IV fluids and nothing by mouth. He was seen by GI and diagnosed with acute pancreatitis secondary to alcoholic hepatitis. He was seen by cardiology and his elevated troponins were deemed likely secondary to renal insufficiency. He was diagnosed with diastolic congestive heart failure with acute exacerbation and had been on Lasix. He was seen by nephrology and diagnosed with a I likely secondary to ATN and hypercalcemia. He had been taken off of his angiotensin receptor chasidy. He was started on IV Lasix. His IV Lasix did not help with diuresis and he was ultimately started on a Lasix drip. His diet was slowly advanced for pancreatitis. He did start spiking fever and was seen by infectious disease on 05/16. He was started on Zosyn and a repeat CT abdomen and pelvis was ordered. CT abdomen and pelvis showed an infiltrate at the left lung base similar to old exam but no acute abdominal abnormality. One blood culture came back with staph epidermidis and was determined to be a likely contaminant. Chest x-ray and urinalysis were negative. His fevers were thought to be secondary to his acute pancreatitis. He continued to have worsening fluid overload as well as worsening renal function despite adjustments in his IV Lasix. He was subsequently started on hemodialysis on January 15 after a HD cath was placed in the right groin. His fevers abated. They attempted to hold dialysis and his creatinine increased again. Underwent HD on , 01/20, and 01/21. He will also have outpatient HD on ,,. Currently awaiting placement. he was transitioned to Augmentin. Her developed one fever on 01/22 and UA was check culture whos E coli and stpah epi but possible contaminant continue with augmentin. He was subsequently discharged tomorrow in stable condition. With plans to have dialysis Friday. This discharge summary took approximately 35 minutes Patient Condition at Discharge: Good Plan - Discharge Summary Discharge Rx Participant: No New Discharge Prescriptions: New Insulin Aspart [NovoLOG (formulary)] 2 unit SQ AC-LUNCH #0 vial Polyethylene Glycol 3350 [Miralax] 17 gm PO DAILY PRN powd.pack PRN Reason: Constipation Continue Nitroglycerin Sl Tabs [Nitrostat] 0.4 mg SUBLINGUAL Q5M PRN PRN Reason: Angina Carvedilol 25 mg PO BID@0800,1700 Docusate [Colace] 100 mg PO HS PRN PRN Reason: Constipation Pantoprazole [Protonix] 40 mg PO AC-BRKFST tablet. Magnesium Oxide [Mag-Ox] 400 mg PO DAILY@1700 Atorvastatin [Lipitor] 20 mg PO HS@2100 Insulin Detemir [Levemir] 35 unit SQ HS@2100 Glecaprevir/Pibrentasvir [Mavyret 100-40 mg Tablet] 3 tab PO DAILY@0800 HYDROcodone/APAP 7.5-325MG [[place] 7.5-325] 1 tab PO Q6HR PRN #28 tab PRN Reason: Pain Discontinued Spironolactone [Aldactone] 25 mg PO DAILY Losartan [Cozaar] 12.5 mg PO DAILY INSULIN LISPRO (humaLOG) [humaLOG] See Protocol SQ AC-TID Furosemide [Lasix] 40 mg PO BID@0900,1600 tab Gabapentin [Neurontin] 400 mg PO TID No Action NIFEdipine XL [Procardia XL] 30 mg PO DAILY@0800 Na Phos,M-B/Na Phos,Di-Ba [Fleet Adult] 133 ml RECTAL DAILY PRN PRN Reason: Constipation Magnesium Hydroxide [Milk of Magnesia] 2,400 mg PO DAILY PRN PRN Reason: Constipation Isosorbide Mononitrate ER [Imdur] 60 mg PO DAILY@0800 Insulin Aspart [NovoLOG (formulary)] 4 unit SQ AC-SUPPER@1700 Insulin Aspart [NovoLOG (formulary)] See Protocol SQ ACHS hydrALAZINE HCL [Apresoline] 100 mg PO TID@0600,1400,2100 Gabapentin [Neurontin] 100 mg PO TID@0600,1400,2100 Furosemide [Lasix] 80 mg PO BID@0600,1400 Bisacodyl 10 mg RECTAL DAILY PRN PRN Reason: Constipation Amoxic-Pot Clav 500-125 mg [Augmentin 500-125 mg] 1 tab PO BID@0800,1700 Discharge Medication List Nitroglycerin Sl Tabs [Nitrostat] 0.4 mg SUBLINGUAL Q5M PRN 11/28/13 [History] Carvedilol 25 mg PO BID@0800,1700 01/24/15 [History] Docusate [Colace] 100 mg PO HS PRN 06/07/15 [History] Pantoprazole [Protonix] 40 mg PO AC-BRKFST tablet. 09/23/17 [Rx] Atorvastatin [Lipitor] 20 mg PO HS@209901/06/18 [History] Glecaprevir/Pibrentasvir [Mavyret 100-40 mg Tablet] 3 tab PO DAILY@0800 [History] Insulin Detemir [Levemir] 35 unit SQ HS@209901/06/18 [History] Magnesium Oxide [Mag-Ox] 400 mg PO DAILY@169901/06/18 [History] HYDROcodone/APAP 7.5-325MG [[place] 7.5-325] 1 tab PO Q6HR PRN #28 tab 01/21/18 [ Rx] Insulin Aspart [NovoLOG (formulary)] 2 unit SQ AC-LUNCH #0 vial 01/21/18 [Rx] Polyethylene Glycol 3350 [Miralax] 17 gm PO DAILY PRN powd.pack 01/21/18 [Rx] Amoxic-Pot Clav 500-125 mg [Augmentin 500-125 mg] 1 tab PO BID@0800,1700 [History] Bisacodyl 10 mg RECTAL DAILY PRN 01/27/18 [History] Furosemide [Lasix] 80 mg PO BID@0600,1400 01/27/18 [History] Gabapentin [Neurontin] 100 mg PO TID@0600,1400,209901/27/18 [History] Insulin Aspart [NovoLOG (formulary)] 4 unit SQ AC-SUPPER@169901/27/18 [History] Insulin Aspart [NovoLOG (formulary)] See Protocol SQ ACHS 01/27/18 [History] Isosorbide Mononitrate ER [Imdur] 60 mg PO DAILY@0801/27/18 [History] Magnesium Hydroxide [Milk of Magnesia] 2,400 mg PO DAILY PRN 01/27/18 [History] NIFEdipine XL [Procardia XL] 30 mg PO DAILY@0801/27/18 [History] Na Phos,M-B/Na Phos,Di-Ba [Fleet Adult] 133 ml RECTAL DAILY PRN 01/27/18 [ History] hydrALAZINE HCL [Apresoline] 100 mg PO TID@0600,1400,209901/27/18 [History] Follow up Appointment(s)/Referral(s): Marilu Rojas MD [STAFF PHYSICIAN] - 1 Week (office will call [facility] with appointment) Kumar Horta MD [REFERRING] - 1 Week Josselin Loya PAC [REFERRING] - 02/24/18 11:15 am Activity/Diet/Wound Care/Special Instructions: [facility] - hemodialysis chair time: Friday, Friday, Friday at 6:15 a.m. Carb consistent renal diet Activity as tolerated physical and occupational therapy Discharge Disposition: TRANSFER TO SNF/ECF
--- NOTE | 2018-01-26 22:07 | PN ---
PROGRESS NOTE DATE OF SERVICE: 01/26/2018. REASON FOR FOLLOWUP: Leukocytosis, UTI. INTERVAL HISTORY: The patient was seen on rounds this morning. The patient has been afebrile. He was breathing comfortably. He denied having any chest pain or cough. No abdominal pain or any diarrhea. PHYSICAL EXAMINATION: Blood pressure 154/84 with a pulse of 66, temperature 97.6. He is 95% on room air. General description is an elderly male lying in bed in no distress. RESPIRATORY SYSTEM: Unlabored breathing. Clear to auscultation anteriorly. HEART: S1, S2. Regular rate and rhythm. ABDOMEN: Soft. No tenderness. LABS: Hemoglobin 10.4, white count 9.7 with a BUN of 55, creatinine 5.27. Repeat urine showing Staph epi and E coli. DIAGNOSTIC IMPRESSION AND PLAN: 1. Patient with positive blood culture with Staphylococcus epidermidis. Contamination. Has been off antibiotic. 2. Patient with low-grade fever, concern for possible urinary tract infection. However, the patient's fever and white count for the same. Antibiotic can be safely discontinued. Continue with supportive care. MMODL / IJN: [id number] /
== END 2018-01-26 15:25 | DRG 438 ==
LOC: EC 03:06 → 6SEL 06:52 → 3SUR 01-13 21:16
PROVIDERS: ADMIT Internal Medicine; ATTEND Internal Medicine
PROC: 06H033Z Insertion of Infusion Device into Inferior Vena Cava, Percutaneous Approach (ICD-10-PCS; 2018-01-15 15:50)
PROC: 5A1D70Z Performance of Urinary Filtration, Intermittent, Less than 6 Hours Per Day (ICD-10-PCS; principal; 2018-01-16)
DX: K85.20 Alcohol induced acute pancreatitis without necrosis or infection (principal); I50.33 Acute on chronic diastolic (congestive) heart failure; N17.0 Acute kidney failure with tubular necrosis; N18.6 End stage renal disease; J18.9 Pneumonia, unspecified organism; E87.1 Hypo-osmolality and hyponatremia; E87.2 Acidosis; I13.2 Hypertensive heart and chronic kidney disease with heart failure and with stage 5 chronic kidney disease, or end stage renal disease; I16.1 Hypertensive emergency; J98.11 Atelectasis; N39.0 Urinary tract infection, site not specified; J96.11 Chronic respiratory failure with hypoxia; B18.2 Chronic viral hepatitis C; D50.9 Iron deficiency anemia, unspecified; D63.8 Anemia in other chronic diseases classified elsewhere; E11.22 Type 2 diabetes mellitus with diabetic chronic kidney disease; E11.42 Type 2 diabetes mellitus with diabetic polyneuropathy; E11.65 Type 2 diabetes mellitus with hyperglycemia; E66.9 Obesity, unspecified; E78.5 Hyperlipidemia, unspecified; E83.39 Other disorders of phosphorus metabolism; E83.42 Hypomagnesemia; E87.5 Hyperkalemia; I25.10 Atherosclerotic heart disease of native coronary artery without angina pectoris; I25.2 Old myocardial infarction; I27.20 Pulmonary hypertension, unspecified; J44.9 Chronic obstructive pulmonary disease, unspecified; K38.1 Appendicular concretions; K70.10 Alcoholic hepatitis without ascites; M19.90 Unspecified osteoarthritis, unspecified site; T50.2X5A Adverse effect of carbonic-anhydrase inhibitors, benzothiadiazides and other diuretics, initial encounter; F10.10 Alcohol abuse, uncomplicated; F32.9 Major depressive disorder, single episode, unspecified; M10.9 Gout, unspecified; M51.36 Other intervertebral disc degeneration, lumbar region; R01.1 Cardiac murmur, unspecified; E86.0 Dehydration; R07.89 Other chest pain; R77.9 Abnormality of plasma protein, unspecified; Z68.36 Body mass index [BMI] 36.0-36.9, adult; Z79.4 Long term (current) use of insulin; Z79.899 Other long term (current) drug therapy; Z95.0 Presence of cardiac pacemaker; Z98.42 Cataract extraction status, left eye; Z98.41 Cataract extraction status, right eye; Z96.1 Presence of intraocular lens; Z80.9 Family history of malignant neoplasm, unspecified; Z82.49 Family history of ischemic heart disease and other diseases of the circulatory system
CPT/HCPCS: 36415; 36556; 71045; 71046; 74176; 76705; 76937; 77001; 78582; 80048; 80053; 80074; 80202; 81001; 81003; 82105; 82150; 82550; 82553; 82805; 82977; 83540; 83550; 83605; 83690; 83735; 83880; 84100; 84484; 85025; 85027; 85379; 85610; 85730; 86301; 87040; 87077; 87086; 87186; 87522; 90935; 93005; 93306; 94640; 94760; 96361; 96374; 99285

== ENCOUNTER 2018-01-27 12:14 | Inpatient (IN) | payer MEDICARE, OTHER ==
[2018-01-27] MEDS ORDERED: SODIUM CHLORIDE 0.9% 500 ML IV STA (12:17)
--- NOTE | 2018-01-27 12:19 | ED ---
General Adult HPI - General Stated complaint: altered mental status Time Seen by Provider: 01/27/18 12:16 Source: RN notes reviewed, old records reviewed Limitations: altered mental status - History of Present Illness Initial comments: This is a 70-year-old male the ER for mental state. Patient's coming in for fever, not acting appropriately. Patient has positive fever, patient has multiple sources of infection fever including bacteremia, multiple catheters insertion sites. Patient's history is obtained by EMS and patient's chart - Related Data Home Medications Medication Instructions Recorded Confirmed Nitroglycerin Sl Tabs [Nitrostat] 0.4 mg SUBLINGUAL Q5M PRN 11/28/13 01/27/18 Carvedilol 25 mg PO BID@0800,169901/24/15 01/27/18 Docusate [Colace] 100 mg PO HS PRN 06/07/15 01/27/18 Atorvastatin [Lipitor] 20 mg PO HS@2100 01/06/18 01/27/18 Glecaprevir/Pibrentasvir [Mavyret 3 tab PO DAILY@0800 01/06/18 01/27/18 100-40 mg Tablet] Insulin Detemir [Levemir] 35 unit SQ HS@209901/06/18 01/27/18 Magnesium Oxide [Mag-Ox] 400 mg PO DAILY@169901/06/18 01/27/18 Amoxic-Pot Clav 500-125 mg 1 tab PO BID@0800,1700 01/27/18 01/27/18 [Augmentin 500-125 mg] Bisacodyl 10 mg RECTAL DAILY PRN 01/27/18 01/27/18 Furosemide [Lasix] 80 mg PO BID@0600,1400 01/27/18 01/27/18 Gabapentin [Neurontin] 100 mg PO TID@0600,1400,2100 01/27/18 01/27/18 Insulin Aspart [NovoLOG 4 unit SQ AC-SUPPER@1700 01/27/18 01/27/18 (formulary)] Insulin Aspart [NovoLOG See Protocol SQ ACHS 01/27/18 01/27/18 (formulary)] Isosorbide Mononitrate ER [Imdur] 60 mg PO DAILY@0800 01/27/18 01/27/18 Magnesium Hydroxide [Milk of 2,400 mg PO DAILY PRN 01/27/18 01/27/18 Magnesia] NIFEdipine XL [Procardia XL] 30 mg PO DAILY@0800 01/27/18 01/27/18 Na Phos,M-B/Na Phos,Di-Ba [Fleet 133 ml RECTAL DAILY PRN 01/27/18 01/27/18 Adult] hydrALAZINE HCL [Apresoline] 100 mg PO TID@0600,1400,2100 01/27/18 01/27/18 Previous Rx's Medication Instructions Recorded Pantoprazole [Protonix] 40 mg PO AC-BRKFST tablet. 09/23/17 HYDROcodone/APAP 7.5-325MG [[place] 1 tab PO Q6HR PRN #28 tab 01/21/18 7.5-325] Insulin Aspart [NovoLOG 2 unit SQ AC-LUNCH #0 vial 01/21/18 (formulary)] Polyethylene Glycol 3350 [Miralax] 17 gm PO DAILY PRN powd.pack 01/21/18 Allergies Allergy/AdvReac Type Severity Reaction Status Date / Time No Known Allergies Allergy Verified 01/27/18 12:49 Review of Systems ROS Statement: Those systems with pertinent positive or pertinent negative responses have been documented in the HPI. ROS Other: All systems not noted in ROS Statement are negative. 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 Last Myocardial Infarction Date:: 11/2013 History of Any Multi-Drug Resistant Organisms: None Reported Past Surgical History: Heart Catheterization, Pacemaker Additional Past Surgical History / Comment(s): PTCA 2010 in [place], CATARACTS TRAY EYES REMOVED. liver biopsy on 10-18-13, Past Anesthesia/Blood Transfusion Reactions: No Reported Reaction Type of Cardiac Device: Permanent Pacemaker Device Placement Date:: 2013? pt unsure Smoking Status: Never smoker - Past Family History Mother Family Medical History: Hypertension Sister(s) Family Medical History: Cancer Father History Unknown: Yes General Exam General appearance: alert, in no apparent distress Head exam: Present: atraumatic, normocephalic, normal inspection Eye exam: Present: normal appearance, PERRL, EOMI. Absent: scleral icterus, conjunctival injection, periorbital swelling ENT exam: Present: normal exam, mucous membranes moist Neck exam: Present: normal inspection. Absent: tenderness, meningismus, lymphadenopathy Respiratory exam: Present: normal lung sounds bilaterally. Absent: respiratory distress, wheezes, rales, rhonchi, stridor Cardiovascular Exam: Present: regular rate, normal rhythm, normal heart sounds. Absent: systolic murmur, diastolic murmur, rubs, gallop, clicks GI/Abdominal exam: Present: soft, normal bowel sounds. Absent: distended, tenderness, guarding, rebound, rigid Extremities exam: Present: normal inspection, full ROM, normal capillary refill. Absent: tenderness, pedal edema, joint swelling, calf tenderness Back exam: Present: normal inspection Neurological exam: Present: alert, oriented X3, CN II-XII intact Psychiatric exam: Present: normal affect, normal mood Skin exam: Present: warm, dry, intact, normal color. Absent: rash Course Vital Signs 01/27/18 01/27/18 01/27/18 12:20 14:24 15:34 Temperature 101.5 F H 98.9 F Pulse Rate 66 56 L 62 Respiratory 18 18 20 Rate Blood Pressure 132/60 121/57 160/88 O2 Sat by Pulse 97 98 98 Oximetry - Reevaluation(s) Reevaluation #1: 01/27/18 15:42 Medical record is reviewed, patient is improving with fever control and hydration EKG Findings - EKG Comments: EKG Findings:: EKG shows paced rhythm rate of 66, [place] 128, QRS 128, QTc 461 Medical Decision Making - Medical Decision Making 72 male the ER for evaluation. Patient presents ER for evaluation of altered mental state positive fever. Patient to be admitted to the hospital for broad- spectrum antibiotics. - Lab Data Result diagrams: 01/27/18 14:05 01/27/18 14:05 Lab Results 01/27/18 01/27/18 01/27/18 Range/Units 14:05 14:05 14:05 WBC 10.6 (3.8-10.6) k/uL RBC 2.94 L (4.30-5.90) m/uL Hgb 8.3 L (13.0-17.5) gm/dL Hct 26.5 L (39.0-53.0) % MCV 90.2 (80.0-100.0) fL MCH 28.1 (25.0-35.0) pg MCHC 31.2 (31.0-37.0) g/dL RDW 14.0 (11.5-15.5) % Plt Count 254 (150-450) k/uL Neutrophils % 74 % Lymphocytes % 15 % Monocytes % 8 % Eosinophils % 2 % Basophils % 1 % Neutrophils # 7.8 H (1.3-7.7) k/uL Lymphocytes # 1.6 (1.0-4.8) k/uL Monocytes # 0.8 (0-1.0) k/uL Eosinophils # 0.2 (0-0.7) k/uL Basophils # 0.1 (0-0.2) k/uL Hypochromasia Slight PT 10.4 (9.0-12.0) sec INR 1.1 (<1.2) APTT 27.5 (22.0-30.0) sec Sodium 134 L (137-145) mmol/L Potassium 5.7 H (3.5-5.1) mmol/L Chloride 99 (98-107) mmol/L Carbon Dioxide 28 (22-30) mmol/L Anion Gap 7 mmol/L BUN 40 H (9-20) mg/dL Creatinine 4.60 H (0.66-1.25) mg/dL Est GFR (CKD-EPI)AfAm 14 (>60 ml/min/1.73 sqM) Est GFR (CKD-EPI)NonAf 12 (>60 ml/min/1.73 sqM) Glucose 204 H (74-99) mg/dL Plasma Lactic Acid Fermin (0.7-2.0) mmol/L Calcium 9.1 (8.4-10.2) mg/dL Phosphorus 4.4 (2.5-4.5) mg/dL Magnesium 1.9 (1.6-2.3) mg/dL Total Bilirubin 0.6 (0.2-1.3) mg/dL AST 20 (17-59) U/L ALT 24 (21-72) U/L Alkaline Phosphatase 122 (38-126) U/L Ammonia (<30) umol/L Total Creatine Kinase (55-170) U/L CK-MB (CK-2) (0.0-2.4) ng/mL CK-MB (CK-2) Rel Index Total Protein 6.9 (6.3-8.2) g/dL Albumin 3.1 L (3.5-5.0) g/dL Lipase 638 H (23-300) U/L TSH 4.290 (0.465-4.680) mIU/L 01/27/18 01/27/18 Range/Units 14:05 14:05 WBC (3.8-10.6) k/uL RBC (4.30-5.90) m/uL Hgb (13.0-17.5) gm/dL Hct (39.0-53.0) % MCV (80.0-100.0) fL MCH (25.0-35.0) pg MCHC (31.0-37.0) g/dL RDW (11.5-15.5) % Plt Count (150-450) k/uL Neutrophils % % Lymphocytes % % Monocytes % % Eosinophils % % Basophils % % Neutrophils # (1.3-7.7) k/uL Lymphocytes # (1.0-4.8) k/uL Monocytes # (0-1.0) k/uL Eosinophils # (0-0.7) k/uL Basophils # (0-0.2) k/uL Hypochromasia PT (9.0-12.0) sec INR (<1.2) APTT (22.0-30.0) sec Sodium (137-145) mmol/L Potassium (3.5-5.1) mmol/L Chloride (98-107) mmol/L Carbon Dioxide (22-30) mmol/L Anion Gap mmol/L BUN (9-20) mg/dL Creatinine (0.66-1.25) mg/dL Est GFR (CKD-EPI)AfAm (>60 ml/min/1.73 sqM) Est GFR (CKD-EPI)NonAf (>60 ml/min/1.73 sqM) Glucose (74-99) mg/dL Plasma Lactic Acid Fermin 0.5 L (0.7-2.0) mmol/L Calcium (8.4-10.2) mg/dL Phosphorus (2.5-4.5) mg/dL Magnesium (1.6-2.3) mg/dL Total Bilirubin (0.2-1.3) mg/dL AST (17-59) U/L ALT (21-72) U/L Alkaline Phosphatase (38-126) U/L Ammonia 14 (<30) umol/L Total Creatine Kinase 37 L (55-170) U/L CK-MB (CK-2) 1.1 (0.0-2.4) ng/mL CK-MB (CK-2) Rel Index 3.0 Total Protein (6.3-8.2) g/dL Albumin (3.5-5.0) g/dL Lipase (23-300) U/L TSH (0.465-4.680) mIU/L - Radiology Data Radiology results: report reviewed (Chest x-ray is positive for CHF ultrasound negative for DVT bilateral), image reviewed Disposition Clinical Impression: Altered mental status, Fever, Acute renal failure Disposition: ADMITTED IP TO THIS [facility] Condition: Fair Is patient prescribed a controlled substance at d/c from ED?: No Referrals: Joel York MD [Primary Care Provider] - 1-2 days
[2018-01-27] MEDS ORDERED: ACETAMINOPHEN IV (For NPO) 1,000 MG in EMPTY BAG 1 BAG IVPB STA (13:22)
[2018-01-27] MEDS ORDERED: VANCOMYCIN IV PER PHARMACY 1 EACH MISC MISCELLANE PRN (13:22)
[2018-01-27] MEDS ORDERED: VANCOMYCIN 1,750 MG in SODIUM CHLORIDE 0.9% 500 ML IVPB STA (13:44)
--- NOTE | 2018-01-27 13:59 | XR ---
EXAMINATION TYPE: XR chest 2V DATE OF EXAM: 01/27/2018 COMPARISON: Prior chest 01/13/2018 HISTORY: Weakness, altered mental status TECHNIQUE: Frontal and lateral views of the chest are obtained. FINDINGS: Patient is rotated. Intracardiac defibrillator leads are stable. Heart remains enlarged. T here are overlying cardiac leads. Central vascularity and interstitium are somewhat prominent. No pne umothorax, there is blunting of the posterior gastric angle suggesting small effusions. IMPRESSION: Correlate for pulmonary venous hypertension and interstitial edema. Exam somewhat limite d technically, follow-up as indicated.
[2018-01-27 14:55] LABS: Basophils # (A) 0.1 k/uL (0-0.2); Basophils % (A) 1 %; Eosinophils # (A) 0.2 k/uL (0-0.7); Eosinophils % (A) 2 %; HCT 26.5 % (39.0-53.0); HGB 8.3 gm/dL (13.0-17.5); Hypochromasia Slight; INR 1.1 (<1.2); Lymphocytes # (A) 1.6 k/uL (1.0-4.8); Lymphocytes % (A) 15 %; MCH 28.1 pg (25.0-35.0); MCHC 31.2 g/dL (31.0-37.0); MCV 90.2 fL (80.0-100.0); Mean Platelet Volume 8.9; Monocytes # (A) 0.8 k/uL (0-1.0); Monocytes % (A) 8 %; Neutrophils # (A) 7.8 k/uL (1.3-7.7); Neutrophils % (A) 74 %; Partial Thromboplastin Time 27.5 sec (22.0-30.0); Platelet Count 254 k/uL (150-450); Prothrombin Time 10.4 sec (9.0-12.0); RBC 2.94 m/uL (4.30-5.90); WBC 10.6 k/uL (3.8-10.6)
[2018-01-27 14:57] LABS: Albumin 3.1 g/dL (3.5-5.0); Calcium 9.1 mg/dL (8.4-10.2); Magnesium 1.9 mg/dL (1.6-2.3); Phosphorus 4.4 mg/dL (2.5-4.5); Potassium 5.7 mmol/L (3.5-5.1); Total Bilirubin 0.6 mg/dL (0.2-1.3); Total Protein 6.9 g/dL (6.3-8.2)
[2018-01-27 15:01] LABS: Lactic Acid, Venous 0.5 mmol/L (0.7-2.0)
--- NOTE | 2018-01-27 15:14 | US ---
EXAMINATION TYPE: US venous doppler duplex LE DATE OF EXAM: 01/27/2018 3:02 PM COMPARISON: NONE CLINICAL HISTORY: 72-year-old male Pain. EC patient with altered mental status with hemodialysis acce ss graft in right CFV. Right leg > in size than left leg SIDE PERFORMED: Bilateral TECHNIQUE: The lower extremity deep venous system is examined utilizing real time linear array sonog becky with graded compression, doppler sonography and color-flow sonography. VESSELS IMAGED: Common Femoral Vein Deep Femoral Vein Greater Saphenous Vein * Femoral Vein Popliteal Vein Small Saphenous Vein * Proximal Calf Veins Posterior tibial veins (* superficial vessels) Right Leg: Negative for DVT; hemodialysis access graft hyperechoic lines noted in CFV, thus compress ion here was deferred Left Leg: Negative for DVT IMPRESSION: Graft material identified in the region of the right common femoral vein. Compression here was deferr ed. No evidence for DVT within the bilateral lower extremities.
[2018-01-27 15:15] LABS: Creatine Kinase MB 1.1 ng/mL (0.0-2.4)
[2018-01-27] MEDS ORDERED: PIPERACILLIN-TAZOBACTAM 3.375 GM in DEXTROSE/WATER 1 50ML.BAG IVPB STA (15:35)
[2018-01-27 15:46] LABS: Troponin I 0.065 ng/mL (0.000-0.034)
[2018-01-27 16:00] LABS: Appearance,Urine Cloudy (Clear); Bilirubin,Urine 1+ (Negative); Blood,Urine Negative (Negative); Color,Urine Yellow; Glucose,Urine (UA) Negative (Negative); Hyaline Casts,Urine 4 /lpf (0-2); Ketones,Urine Trace (Negative); Leukocyte Esterase,Urine Trace (Negative); Nitrite,Urine Negative (Negative); Protein,Urine 1+ (Negative); RBC,Urine 1 /hpf (0-5); Specific Gravity,Urine 1.018 (1.001-1.035); Squamous Epithelial Cell,Urine <1 /hpf (0-4); WBC,Urine 4 /hpf (0-5)
[2018-01-27] MEDS: PIPERACILLIN-TAZOBACTAM 3.375 GM in DEXTROSE/WATER 1 50ML.BAG IVPB SCH (22:38)
[2018-01-28] MEDS ORDERED: FUROSEMIDE 10 MG/ML 2 ML VIAL ONE (02:55)
[2018-01-28] MEDS ORDERED: VANCOMYCIN 1,750 MG in SODIUM CHLORIDE 0.9% 500 ML IVPB ONE (06:00)
[2018-01-28] MEDS: SODIUM CHLORIDE 0.45% 1,000 ML IV SCH ×2 (10:29→11:29)
[2018-01-28] MEDS: PIPERACILLIN-TAZOBACTAM 3.375 GM in DEXTROSE/WATER 1 50ML.BAG IVPB SCH ×2 (10:30→21:32)
--- NOTE | 2018-01-28 11:03 | P.HPIM ---
History of Present Illness H&P Date: 01/28/18 Chief Complaint: Confusion and fever The patient is a 72-year-old -[place] male well known to our service that was apparently admitted to the floor yesterday from the ER after presenting there for more worried with reports of increasing confusion fever, the patient was admitted yesterday however I was not notified until today that the patient was here. The patient has a known history of acute on chronic congestive heart failure, type 2 diabetes with peripheral neuropathy, and was recently upgraded to end-stage renal disease on hemodialysis Friday after he presented on his last admission with worsening acute on chronic kidney disease, with hyperkalemia and volume overload resistant to IV diuresis. During that hospitalization the patient was noted to be febrile and was started on Zosyn and later transition to Augmentin, workup at that time indicated the blood culture of Staphylococcus epidermidis that was suggestive of contamination. Urine culture at that time also grew Staphylococcus epididymis and E. coli. The patient is a notoriously poor historian, today he denies any chest pain shortness of breath and reports that he feels fine and is asking when he can go back to [facility]. Review of the chart indicates the patient did have a temperature of 101.5 on presentation and was started on vancomycin and Zosyn, urine and blood cultures were also ordered and are pending. 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, ddd lumbar region, folliculitis, constipation , ESRD/DIALYSIS, chronic anemia, thrombocytopenia, hep c 1-1-14, 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 liver biopsy on 10-18-13, Past Anesthesia/Blood Transfusion Reactions: No Reported Reaction Type of Cardiac Device: Permanent Pacemaker Device Placement Date:: 2013? pt unsure Smoking Status: Never smoker - Past Family History Mother Family Medical History: Hypertension Sister(s) Family Medical History: Cancer Father History Unknown: Yes Medications and Allergies Home Medications Medication Instructions Recorded Confirmed Type Nitroglycerin Sl Tabs [Nitrostat] 0.4 mg SUBLINGUAL Q5M PRN 11/28/13 01/27/18 History Carvedilol 25 mg PO BID@0800,1700 01/24/15 01/27/18 History Docusate [Colace] 100 mg PO HS PRN 06/07/15 01/27/18 History Pantoprazole [Protonix] 40 mg PO AC-BRKFST tablet. 09/23/17 01/27/18 Rx Atorvastatin [Lipitor] 20 mg PO HS@2100 01/06/18 01/27/18 History Glecaprevir/Pibrentasvir [Mavyret 3 tab PO DAILY@0800 01/06/18 01/27/18 History 100-40 mg Tablet] Insulin Detemir [Levemir] 35 unit SQ HS@2100 01/06/18 01/27/18 History Magnesium Oxide [Mag-Ox] 400 mg PO DAILY@1700 01/06/18 01/27/18 History HYDROcodone/APAP 7.5-325MG [[place] 1 tab PO Q6HR PRN #28 tab 01/21/18 01/27/18 Rx 7.5-325] Insulin Aspart [NovoLOG 2 unit SQ AC-LUNCH #0 vial 01/21/18 01/27/18 Rx (formulary)] Polyethylene Glycol 3350 [Miralax] 17 gm PO DAILY PRN powd.pack 01/21/18 Rx Amoxic-Pot Clav 500-125 mg 1 tab PO BID@0800,1700 01/27/18 01/27/18 History [Augmentin 500-125 mg] Bisacodyl 10 mg RECTAL DAILY PRN 01/27/18 01/27/18 History Furosemide [Lasix] 80 mg PO BID@0600,1400 01/27/18 01/27/18 History Gabapentin [Neurontin] 100 mg PO TID@0600,1400,2100 01/27/18 01/27/18 History Insulin Aspart [NovoLOG 4 unit SQ AC-SUPPER@1700 01/27/18 01/27/18 History (formulary)] Insulin Aspart [NovoLOG See Protocol SQ ACHS 01/27/18 01/27/18 History (formulary)] Isosorbide Mononitrate ER [Imdur] 60 mg PO DAILY@0800 01/27/18 01/27/18 History Magnesium Hydroxide [Milk of 2,400 mg PO DAILY PRN 01/27/18 01/27/18 History Magnesia] NIFEdipine XL [Procardia XL] 30 mg PO DAILY@0800 01/27/18 01/27/18 History Na Phos,M-B/Na Phos,Di-Ba [Fleet 133 ml RECTAL DAILY PRN 01/27/18 01/27/18 History Adult] hydrALAZINE HCL [Apresoline] 100 mg PO TID@0600,1400,2100 01/27/18 01/27/18 History Allergies Allergy/AdvReac Type Severity Reaction Status Date / Time No Known Allergies Allergy Verified 01/27/18 12:49 Physical Exam Vitals: Vital Signs Temp Pulse Pulse Resp BP BP Pulse Ox 01/28/18 08:00 65 28 H 01/28/18 07:42 99.4 F 65 28 H 149/76 92 L 01/28/18 07:00 98.6 F 66 20 170/78 98 01/27/18 22:55 63 16 01/27/18 20:29 97.0 F L 63 16 116/57 92 L 01/27/18 17:29 96.6 F L 57 L 16 134/69 91 L 01/27/18 16:36 59 L 18 119/56 96 01/27/18 15:34 98.9 F 62 20 160/88 98 01/27/18 14:24 56 L 18 121/57 98 01/27/18 12:20 101.5 F H 66 18 132/60 97 Intake and Output 01/27/18 01/28/18 01/28/18 22:59 06:59 14:59 Intake Total 950 Balance 950 Intake: Intake, IV Titration 950 Amount Piperacillin-Tazobactam 3 50 .375 gm In Dextrose/Water 1 50ml.bag @ 12.5 mls/hr IVPB Q8HR REBA Rx#: [id number] Sodium Chloride 0.45% 1, 900 000 ml @ 100 mls/hr IV . Q10H REBA Rx#:[id number] Other: # Voids 1 Weight 104.326 kg Constitutional: No acute distress, conversant, pleasant Eyes: Anicteric sclerae, moist conjunctiva, no lid-lag, PERRLA ENMT: NC/AT,Oropharynx clear, no erythema, exudates Neck:Supple, FROM, no masses, or JVD, No carotid bruits; No thyromegaly Lungs: Clear to auscultation, Clear to percussion, Normal respiratory effort, no accessory muscle use Cardiovascular: Heart regular in rate and rhythm, No murmurs, gallops, or rubs +2 peripheral pitting edema pedally Abdominal: Soft Nontender, nom distended, no guarding, no rebound or rigidity, Normoactive bowel sounds No hepatomegaly, No splenomegaly, No palpable mass No abdominal wall hernia noted Skin: Normal temperature, tone, texture, turgor, No induration No subcutaneous nodules, No rash, lesions, No ulcers Extremities:No digital cyanosis No clubbing, Pedal pulses intact and symmetrical Radial pulses intact and symmetrical Normal gait and station, No calf tenderness Psychiatric: Alert and oriented to person, place and time, Appropriate affect Intact judgement Neuro: Muscles Strength 5/5 in all 4 extremities, Sensation to light touch grossly present throughout, Cranial nerves II-XII grossly intact. No focal sensory deficits Results CBC & Chem 7: 01/27/18 14:05 01/27/18 14:05 Labs: Abnormal Lab Results - Last 24 Hours (Table) 01/27/18 01/27/18 01/27/18 Range/Units 14:05 14:05 14:05 RBC 2.94 L (4.30-5.90) m/uL Hgb 8.3 L (13.0-17.5) gm/dL Hct 26.5 L (39.0-53.0) % Neutrophils # 7.8 H (1.3-7.7) k/uL Sodium 134 L (137-145) mmol/L Potassium 5.7 H (3.5-5.1) mmol/L BUN 40 H (9-20) mg/dL Creatinine 4.60 H (0.66-1.25) mg/dL Glucose 204 H (74-99) mg/dL Plasma Lactic Acid Fermin 0.5 L (0.7-2.0) mmol/L Total Creatine Kinase (55-170) U/L Troponin I (0.000-0.034) ng/mL Albumin 3.1 L (3.5-5.0) g/dL Lipase 638 H (23-300) U/L Urine Protein (Negative) Urine Ketones (Negative) Urine Bilirubin (Negative) Ur Leukocyte Esterase (Negative) Hyaline Casts (0-2) /lpf 01/27/18 01/27/18 Range/Units 14:05 15:38 RBC (4.30-5.90) m/uL Hgb (13.0-17.5) gm/dL Hct (39.0-53.0) % Neutrophils # (1.3-7.7) k/uL Sodium (137-145) mmol/L Potassium (3.5-5.1) mmol/L BUN (9-20) mg/dL Creatinine (0.66-1.25) mg/dL Glucose (74-99) mg/dL Plasma Lactic Acid Fermin (0.7-2.0) mmol/L Total Creatine Kinase 37 L (55-170) U/L Troponin I 0.065 H* (0.000-0.034) ng/mL Albumin (3.5-5.0) g/dL Lipase (23-300) U/L Urine Protein 1+ H (Negative) Urine Ketones Trace H (Negative) Urine Bilirubin 1+ H (Negative) Ur Leukocyte Esterase Trace H (Negative) Hyaline Casts 4 H (0-2) /lpf Microbiology - Last 24 Hours (Table) 01/27/18 15:38 Urine Culture - Preliminary Urine,Catheterized Thrombosis Risk Factor Assmnt - Choose All That Apply Each Factor Represents 1 point: Obesity (BMI >25) Other Risk Factors: Yes Each Risk Factor Represents 2 Points: Age 61-74 years Other congenital or acquired thrombophilia - If yes, enter type in comment: No Thrombosis Risk Factor Assessment Total Risk Factor Score: 3 Thrombosis Risk Factor Assessment Level: Moderate Risk Assessment and Plan (1) Fever of unknown origin Current Visit: Yes Status: Acute Code(s): R50.9 - FEVER, UNSPECIFIED SNOMED Code(s): 9360051 (2) Metabolic encephalopathy Current Visit: Yes Status: Acute Code(s): G93.41 - METABOLIC ENCEPHALOPATHY SNOMED Code(s): 99488711 (3) ESRD (end stage renal disease) on dialysis Current Visit: No Status: Acute Code(s): N18.6 - END STAGE RENAL DISEASE; Z99.2 - DEPENDENCE ON RENAL DIALYSIS SNOMED Code(s): 935917961 (4) Type 2 diabetes mellitus with peripheral neuropathy Current Visit: No Status: Acute Code(s): E11.42 - TYPE 2 DIABETES MELLITUS WITH DIABETIC POLYNEUROPATHY SNOMED Code(s): 9358826517395 (5) Chronic diastolic heart failure Current Visit: Yes Status: Acute Code(s): I50.32 - CHRONIC DIASTOLIC ( CONGESTIVE) HEART FAILURE SNOMED Code(s): 244508021 Plan: The patient is admitted anticipated greater than 2 midnight stay with fever of unknown origin, plan to consult Dr. Le ID continue antibiotic regimen with vancomycin and Zosyn, urine and blood cultures have been drawn. Nephrology Dr. Ruiz has been consulted to coordinate hemodialysis. Patient is resumed on all his chronic medications. We will continue to follow his clinical course. Continue heparin for DVT prophylaxis
[2018-01-28] MEDS ORDERED: POLYETHYLENE GLYCOL 3350 17 GM POWD.PACK PO PRN (11:04)
[2018-01-28] MEDS ORDERED: NA PHOS,M-B/NA PHOS,DI-BA 133 ML ENEMA RECTAL PRN (11:04)
[2018-01-28] MEDS ORDERED: NITROGLYCERIN SL TABS 0.4 MG TAB SUBLINGUAL PRN (11:04)
[2018-01-28] MEDS ORDERED: HYDROcodone/APAP 7.5-325MG 1 EACH TAB PO PRN (11:04)
--- NOTE | 2018-01-28 11:35 | P.NPCON ---
History of Present Illness - Reason for Consult acute renal failure - History of Present Illness Reason for consultation: Acute kidney injury History of present illness: Patient is a 72-year-old male seen in renal consultation for acute kidney injury currently hemodialysis dependent. He is maintained on hemodialysis on a Friday schedule. He has a groin tunneled catheter. Hemodialysis was initiated earlier this month after he developed ATN from pancreatitis. He was also oliguric. Patient was discharged on Friday to extended care facility and was sent back to the hospital due to altered mental status and fever. This concerned that his tunneled catheter is infected. His potassium was 5.7 and creatinine is 4.6. Patient is not a very reliable historian. He denies chest pain or shortness of breath. No vomiting or diarrhea. Hemodynamically stable. He did have a temperature of 101.5F on admission. He has history of diastolic CHF. Creatinine in September 2017 was in the range of 1-1.5. He does have history of diabetes mellitus. Vital signs are stable. General: The patient appeared well nourished and normally developed. HEENT: Head exam is unremarkable. Neck is without jugular venous distension. LUNGS: Lungs are clear to auscultation and percussion. Breath sounds decreased. HEART: Rate and Rhythm are regular. First and second heart sounds normal. No murmurs, rubs or gallops. ABDOMEN: Abdominal exam reveals normal bowel sounds. Non-tender and non- distended. No evidence of peritonitis. EXTREMITITES: Trace edema. 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 liver biopsy on 10-18-13, Past Anesthesia/Blood Transfusion Reactions: No Reported Reaction Type of Cardiac Device: Permanent Pacemaker Device Placement Date:: 2013? pt unsure Smoking Status: Never smoker - Past Family History Mother Family Medical History: Hypertension Sister(s) Family Medical History: Cancer Father History Unknown: Yes Medications and Allergies Home Medications Medication Instructions Recorded Confirmed Type Nitroglycerin Sl Tabs [Nitrostat] 0.4 mg SUBLINGUAL Q5M PRN 11/28/13 01/27/18 History Carvedilol 25 mg PO BID@0800,1700 01/24/15 01/27/18 History Docusate [Colace] 100 mg PO HS PRN 06/07/15 01/27/18 History Pantoprazole [Protonix] 40 mg PO AC-BRKFST tablet. 09/23/17 01/27/18 Rx Atorvastatin [Lipitor] 20 mg PO HS@2100 01/06/18 01/27/18 History Glecaprevir/Pibrentasvir [Mavyret 3 tab PO DAILY@0800 01/06/18 01/27/18 History 100-40 mg Tablet] Insulin Detemir [Levemir] 35 unit SQ HS@2100 01/06/18 01/27/18 History Magnesium Oxide [Mag-Ox] 400 mg PO DAILY@1700 01/06/18 01/27/18 History HYDROcodone/APAP 7.5-325MG [[place] 1 tab PO Q6HR PRN #28 tab 01/21/18 01/27/18 Rx 7.5-325] Insulin Aspart [NovoLOG 2 unit SQ AC-LUNCH #0 vial 01/21/18 01/27/18 Rx (formulary)] Polyethylene Glycol 3350 [Miralax] 17 gm PO DAILY PRN powd.pack 01/21/18 Rx Amoxic-Pot Clav 500-125 mg 1 tab PO BID@0800,1700 01/27/18 01/27/18 History [Augmentin 500-125 mg] Bisacodyl 10 mg RECTAL DAILY PRN 01/27/18 01/27/18 History Furosemide [Lasix] 80 mg PO BID@0600,1400 01/27/18 01/27/18 History Gabapentin [Neurontin] 100 mg PO TID@0600,1400,2100 01/27/18 01/27/18 History Insulin Aspart [NovoLOG 4 unit SQ AC-SUPPER@1700 01/27/18 01/27/18 History (formulary)] Insulin Aspart [NovoLOG See Protocol SQ ACHS 01/27/18 01/27/18 History (formulary)] Isosorbide Mononitrate ER [Imdur] 60 mg PO DAILY@0800 01/27/18 01/27/18 History Magnesium Hydroxide [Milk of 2,400 mg PO DAILY PRN 01/27/18 01/27/18 History Magnesia] NIFEdipine XL [Procardia XL] 30 mg PO DAILY@0800 01/27/18 01/27/18 History Na Phos,M-B/Na Phos,Di-Ba [Fleet 133 ml RECTAL DAILY PRN 01/27/18 01/27/18 History Adult] hydrALAZINE HCL [Apresoline] 100 mg PO TID@0600,1400,2100 01/27/18 01/27/18 History Allergies Allergy/AdvReac Type Severity Reaction Status Date / Time No Known Allergies Allergy Verified 01/27/18 12:49 Physical Exam Vitals: Vital Signs Temp Pulse Pulse Resp BP BP Pulse Ox 01/28/18 08:00 65 28 H 01/28/18 07:42 99.4 F 65 28 H 149/76 92 L 01/28/18 07:00 98.6 F 66 20 170/78 98 01/27/18 22:55 63 16 01/27/18 20:29 97.0 F L 63 16 116/57 92 L 01/27/18 17:29 96.6 F L 57 L 16 134/69 91 L 01/27/18 16:36 59 L 18 119/56 96 01/27/18 15:34 98.9 F 62 20 160/88 98 01/27/18 14:24 56 L 18 121/57 98 01/27/18 12:20 101.5 F H 66 18 132/60 97 Intake and Output 0701/28/18 01/28/18 22:59 06:59 14:59 Intake Total 950 Balance 950 Intake: Intake, IV Titration 950 Amount Piperacillin-Tazobactam 3 50 .375 gm In Dextrose/Water 1 50ml.bag @ 12.5 mls/hr IVPB Q8HR REBA Rx#: [id number] Sodium Chloride 0.45% 1, 900 000 ml @ 100 mls/hr IV . Q10H REBA Rx#:[id number] Other: # Voids 1 Weight 104.326 kg Results - Lab Results Most recent lab results Calcium 9.1 mg/dL (8.4-10.2) 01/27/18 14:05 Phosphorus 4.4 mg/dL (2.5-4.5) 01/27/18 14:05 Magnesium 1.9 mg/dL (1.6-2.3) 01/27/18 14:05 01/27/18 14:05 01/27/18 14:05 Assessment and Plan Plan: Assessment: 1. Acute kidney injury currently hemodialysis dependent maintain on a Friday schedule via groin catheter. No hydronephrosis noted on CT of the abdomen and pelvis done earlier this month. 2. Fever. Concern for catheter infection. Infectious disease following. Maintained on IV antibiotics. 3. Benign hypertension. 4. Insulin-dependent diabetes mellitus. 5. Anemia. Rule out iron deficiency. 6. Hyperkalemia secondary to acute kidney injury. 7. Hepatitis C. 8. Diastolic CHF. Plan: Hemodialysis today with goal 2-3 liters ultrafiltration. Check iron studies. Add Aranesp. Check phosphorus level. Add Lasix 80 mg orally twice daily. Follow-up cultures. Monitor vancomycin levels. Target level of 15. Thank you for the consultation. I will continue to follow the patient with you during his hospital stay.
[2018-01-28 11:47] LABS: Glucose,Whole Blood 212 mg/dL (75-99)
[2018-01-28] MEDS ORDERED: DARBEPOETIN ALFA 40 MCG/0.4 ML SYRINGE SQ SCH (12:00)
[2018-01-28] MEDS ORDERED: INSULIN ASPART 100 UNIT/ML 1 ML 10 ML VIAL SQ SCH (12:30)
[2018-01-28] MEDS: INSULIN ASPART 100 UNIT/ML 1 ML 10 ML VIAL SQ SCH ×5 (12:40→21:07)
[2018-01-28] MEDS ORDERED: LACTULOSE 20 GM/30 ML CUP PO PRN (12:47)
[2018-01-28] MEDS: PANTOPRAZOLE 40 MG/10 ML VIAL IV SCH (14:22)
[2018-01-28 17:04] LABS: Glucose,Whole Blood 211 mg/dL (75-99)
[2018-01-28] MEDS: GABAPENTIN 100 MG CAP PO SCH ×2 (17:51→21:32)
[2018-01-28] MEDS: FUROSEMIDE 80 MG TAB PO SCH (17:51)
[2018-01-28] MEDS: hydrALAZINE HCL 50 MG TAB PO SCH ×2 (17:52→21:08)
[2018-01-28] MEDS: CARVEDILOL 12.5 MG TAB PO SCH (17:52)
[2018-01-28] MEDS: MAGNESIUM OXIDE 400 MG TAB PO SCH (17:52)
[2018-01-28 18:46] LABS: Iron Saturation 6.43 (15.00-50.00)
[2018-01-28 20:59] LABS: Glucose,Whole Blood 149 mg/dL (75-99)
[2018-01-28] MEDS ORDERED: DOCUSATE 100 MG CAP PO PRN (21:00)
[2018-01-28] MEDS: HEPARIN SODIUM,PORCINE 5,000 UNIT/ML 1 ML VIAL SQ SCH (21:07)
[2018-01-28] MEDS: INSULIN DETEMIR 100 UNIT/ML 10 ML VIAL SQ SCH (21:08)
[2018-01-28] MEDS: ATORVASTATIN 20 MG TAB PO SCH (21:08)
--- NOTE | 2018-01-28 23:39 | CONS ---
CONSULTATION DATE OF SERVICE: 01/28/2018 REASON FOR CONSULTATION: Fever. HISTORY OF PRESENT ILLNESS: The patient is a 72-year-old -[place] male who was recently admitted to this facility and did have multiple including possible pancreatitis and acute kidney injury. According to the patient, did get a right femoral catheter and subclavian access could not be used. The patient subsequently has been discharged to the rehab on Friday and now has been brought back to the ER within 24 to 48 hours with a fever of 101.5 degrees Fahrenheit. The patient himself is not a very good historian. He is not able to tell me when exactly the fever started. The patient denies having any symptoms. The patient denies having any headache. No urinary symptoms. No chest pain, some shortness of breath. Very minimal cough. No abdominal pain. No nausea, vomiting, or any diarrhea. With these symptoms, the patient has been noted by the ER physician on arrival to have a have a fever of 101.5. His white count was normal though. His UA is not significantly positive. The patient did have a chest x-ray, which shows hypertension and interstitial edema . The patient also had a Doppler study that was negative for DVT. The patient was started on vancomycin and Zosyn in the hospital. Infectious Disease was consulted for further recommendation of antibiotic therapy. REVIEW OF SYSTEMS: CONSTITUTIONAL: Positive for weakness along with the fever. EYES: No complaint. ENT: No complaint. RESPIRATORY: As per HPI. CARDIOVASCULAR: No complaint. GENITOURINARY: No complaint. GASTROINTESTINAL: No complaint. MUSCULOSKELETAL: No complaint. INTEGUMENTARY: No complaint. PSYCHOLOGICAL: No complaint. NEUROLOGIC: No complaint. PAST MEDICAL HISTORY: Significant for coronary artery disease, heart failure, COPD, diabetes mellitus, hypertension, hyperlipidemia, , osteoarthritis, UTI. PAST SURGICAL HISTORY: PTCA, cataract surgery, bilateral liver biopsy, permanent pacemaker placement and . SOCIAL HISTORY: Denies smoking, drinking or drug use. FAMILY HISTORY: Mother with history of hypertension. Sister with a history of cancer. ALLERGIES: No known drug allergies. MEDICATION: The patient is currently on [place], Lipitor, Coreg, Colace, Lasix, Neurontin, heparin, hydralazine, NovoLog, Levemir, Imdur, lactulose, mag oxide, vancomycin pharmacy to dose, Procardia XL, tazobactam. PHYSICAL EXAMINATION: Blood pressure is 144/59 with a pulse of 62, temperature 98.1. He is 92% on 3 L nasal cannula. General description is an elderly male lying in bed in no distress. No tachypnea or accessory muscle of respiration use. HEENT: Shows pallor. No scleral icterus. Oral mucosa is dry. No pharyngeal erythema or thrush. NECK: Trachea central. No thyromegaly. LUNGS: Unlabored breathing with decreased breath sounds in the bases, no wheeze. ABDOMEN: Soft, no tenderness. No guarding. No rigidity. EXTREMITIES: No edema feet. SKIN EXAMINATION: No rash or mass palpable. NEUROLOGICAL: The patient is awake, alert and oriented. Mood and affect normal. LABS: Hemoglobin 8.8, white count 10.6, BUN of 40, creatinine 4.6. Electrolytes slightly elevated at 5.7. Liver enzymes has been normal. Urine is negative. DIAGNOSTIC IMPRESSION AND PLAN: Patient admitted to the hospital with a fever of 101.5 Fahrenheit. The patient has been recently admitted to this facility and medical problem and did have acute renal insufficiency requiring a right groin catheter placement and the patient currently with no clear focus of infection. UA being negative. Chest x-ray reported negative for pneumonia. He has abdominal source on clinical examination and no evidence of any cellulitis likely suspicious source of this fever to be in the catheter. PLAN: 1. Blood culture should be repeated from today. 2. The patient continue with Zosyn and vancomycin. kidney function need to be monitored closely, as well as a vancomycin trough need to monitor closely. 3. Depending upon his clinical response, as well as cultures will adjust his medications further if needed. Thank you for this consultation. We will follow this patient along with you. MMODL / IJN: [id number] /
[2018-01-29] MEDS: FUROSEMIDE 80 MG TAB PO SCH ×2 (06:26→14:07)
[2018-01-29] MEDS: GABAPENTIN 100 MG CAP PO SCH ×3 (06:26→21:02)
[2018-01-29] MEDS: hydrALAZINE HCL 50 MG TAB PO SCH ×3 (06:26→21:02)
[2018-01-29 07:08] LABS: Glucose,Whole Blood 110 mg/dL (75-99)
[2018-01-29] MEDS ORDERED: PANTOPRAZOLE 40 MG TABLET PO SCH (07:30)
[2018-01-29] MEDS: INSULIN ASPART 100 UNIT/ML 1 ML 10 ML VIAL SQ SCH ×6 (07:31→21:02)
[2018-01-29 08:55] LABS: Albumin 3.2 g/dL (3.5-5.0); Calcium 9.2 mg/dL (8.4-10.2); Potassium 5.3 mmol/L (3.5-5.1); Total Bilirubin 0.6 mg/dL (0.2-1.3); Total Protein 6.8 g/dL (6.3-8.2)
[2018-01-29] MEDS: PIPERACILLIN-TAZOBACTAM 3.375 GM in DEXTROSE/WATER 1 50ML.BAG IVPB SCH ×2 (09:04→21:05)
[2018-01-29] MEDS: HEPARIN SODIUM,PORCINE 5,000 UNIT/ML 1 ML VIAL SQ SCH ×2 (09:04→21:02)
[2018-01-29] MEDS: PANTOPRAZOLE 40 MG/10 ML VIAL IV SCH (09:04)
[2018-01-29] MEDS: ISOSORBIDE MONONITRATE ER 60 MG TAB.ER.24H PO SCH (09:04)
[2018-01-29] MEDS: CARVEDILOL 12.5 MG TAB PO SCH ×2 (09:05→17:46)
[2018-01-29] MEDS: NIFEdipine XL 30 MG TAB.ER.24 PO SCH (09:05)
--- NOTE | 2018-01-29 10:57 | P.PN ---
Subjective Patient is seen in follow-up for acute kidney injury currently hemodialysis dependent maintained on a Friday schedule. Patient presented with fever. There is concern that the groin dialysis catheter is infected. He is maintained on IV antibiotics. Patient is not a very reliable historian. States he wants to go home. Vital signs are stable. General: The patient appeared well nourished and normally developed. HEENT: Head exam is unremarkable. Neck is without jugular venous distension. LUNGS: Lungs are clear to auscultation and percussion. Breath sounds decreased. HEART: Rate and Rhythm are regular. First and second heart sounds normal. No murmurs, rubs or gallops. ABDOMEN: Abdominal exam reveals normal bowel sounds. Non-tender and non- distended. No evidence of peritonitis. EXTREMITITES: No clubbing, cyanosis, or edema. Objective - Vital Signs Vital signs: Vital Signs Temp 98.2 F 01/29/18 07:00 Pulse 59 L 01/29/18 07:00 Resp 16 01/29/18 07:00 BP 159/69 01/29/18 07:00 Pulse Ox 95 01/29/18 07:00 Intake & Output 01/28/18 01/29/18 01/29/18 18:59 06:59 18:59 Intake Total 60 350 Output Total 0 300 Balance 60 50 Weight 104.326 kg 104 kg Intake: Intake, IV Titration 50 Amount Piperacillin-Tazobactam 3 50 .375 gm In Dextrose/Water 1 50ml.bag @ 12.5 mls/hr IVPB Q8HR [facility] Rx#: [id number] Oral 60 300 Output: Urine 0 300 Other: Voiding Method Bedpan Diaper Incontinent # Bowel Movements 1 - Labs CBC & Chem 7: 01/27/18 14:05 01/29/18 07:17 Labs: Abnormal Lab Results - Last 24 Hours (Table) 01/27/18 01/28/18 01/28/18 Range/Units 14:05 11:18 11:18 Potassium (3.5-5.1) mmol/L BUN (9-20) mg/dL Creatinine (0.66-1.25) mg/dL POC Glucose (mg/dL) (75-99) mg/dL Hemoglobin A1c 9.0 H (4.0-6.0) % Phosphorus 5.4 H (2.5-4.5) mg/dL Iron 16 L (65-175) ug/dL Iron Saturation 6.43 L (15.00-50.00) Ferritin 830.9 H (22.0-322.0) ng/mL Albumin (3.5-5.0) g/dL 01/28/18 01/28/18 01/28/18 Range/Units 11:44 17:03 20:57 Potassium (3.5-5.1) mmol/L BUN (9-20) mg/dL Creatinine (0.66-1.25) mg/dL POC Glucose (mg/dL) 212 H 211 H 149 H (75-99) mg/dL Hemoglobin A1c (4.0-6.0) % Phosphorus (2.5-4.5) mg/dL Iron (65-175) ug/dL Iron Saturation (15.00-50.00) Ferritin (22.0-322.0) ng/mL Albumin (3.5-5.0) g/dL 01/29/18 01/29/18 Range/Units 07:07 07:17 Potassium 5.3 H (3.5-5.1) mmol/L BUN 27 H (9-20) mg/dL Creatinine 3.60 H (0.66-1.25) mg/dL POC Glucose (mg/dL) 110 H (75-99) mg/dL Hemoglobin A1c (4.0-6.0) % Phosphorus (2.5-4.5) mg/dL Iron (65-175) ug/dL Iron Saturation (15.00-50.00) Ferritin (22.0-322.0) ng/mL Albumin 3.2 L (3.5-5.0) g/dL Microbiology - Last 24 Hours (Table) 01/27/18 15:38 Urine Culture - Final Urine,Catheterized 01/27/18 14:05 Blood Culture - Preliminary Blood No Growth after 24 hours 01/27/18 13:15 Blood Culture - Preliminary Blood No Growth after 24 hours Assessment and Plan Plan: Assessment: 1. Acute kidney injury currently hemodialysis dependent maintain on a Friday schedule via groin catheter. No hydronephrosis noted on CT of the abdomen and pelvis done earlier this month. 2. Fever. Concern for catheter infection. Infectious disease following. Maintained on IV antibiotics. 3. Benign hypertension. 4. Insulin-dependent diabetes mellitus. 5. Anemia. Iron deficiency noted. 6. Hyperkalemia secondary to acute kidney injury. Improved postdialysis. 7. Hepatitis C. 8. Diastolic CHF. 9. Hyperphosphatemia secondary to acute kidney injury. Phos 5.4. Expect improvement with dialysis. Plan: Hemodialysis tomorrow with goal 2-3 liters ultrafiltration. Ferrlecit 125 mg IV daily for 3 days. First dose today. Maintain Aranesp. Continue Lasix 80 mg orally twice daily. Follow-up cultures. Monitor vancomycin levels. Target level of 15. Will continue to monitor renal function for recovery. Discontinue Fleet enemas.
[2018-01-29 11:29] LABS: Glucose,Whole Blood 211 mg/dL (75-99)
[2018-01-29] MEDS: PIBRENTASVIR PO SCH (12:44)
[2018-01-29] MEDS: GLECAPREVIR PO SCH (12:44)
[2018-01-29] MEDS: SODIUM FERRIC GLUCONAT-SUCROSE 125 MG in SODIUM CHLORIDE 0.9% 100 ML IVPB SCH (12:46)
--- NOTE | 2018-01-29 15:14 | P.PN ---
Subjective Progress Note Date: 01/29/18 Principal diagnosis: altered mentation Patient is a 72-year-old -[place] male with a past medical history of coronary artery disease, systolic congestive heart failure, prior pancreatitis, multiple other medical comorbidities who presented to the emergency department from [facility] with altered mentation and Fever. He had just left the hospital after a prolonged stay for MARGARITA requiring HD on CKD, AE CHF, Pancreatitis, and abdominal infections with possible UTI. He was seen in the emergency department and was found ot have elevated potassium and mildly elevated troponin. His UA and CXR were negative. Blood cultures were obtained. He was started on vano and zosyn and was admitted. He was seen by ID and nephrology. Concern is for possible infected HD cath. Patient seen and examined at bedside. He has no complaints frustrated that he is hospitalized again. He denies chest pain, nausea, SOB, and constipation. He is worried about being here again. DOes not believe me that he had a fever and states that he does not have an infection. Objective - Vital Signs Vital signs: Vital Signs Temp 98.2 F 01/29/18 07:00 Pulse 59 L 01/29/18 09:04 Resp 16 01/29/18 09:04 BP 159/69 01/29/18 07:00 Pulse Ox 95 01/29/18 07:00 Intake & Output 01/28/18 01/29/18 01/29/18 18:59 06:59 18:59 Intake Total 60 350 Output Total 0 300 Balance 60 50 Weight 104.326 kg 104 kg Intake: Intake, IV Titration 50 Amount Piperacillin-Tazobactam 3 50 .375 gm In Dextrose/Water 1 50ml.bag @ 12.5 mls/hr IVPB Q8HR [facility] Rx#: [id number] Oral 60 300 Output: Urine 0 300 Other: Voiding Method Bedpan Incontinent Diaper Incontinent # Bowel Movements 1 - Exam General: non toxic, no distress, appears at stated age Derm: warm, dry Head: atraumatic, normocephalic, symmetric Eyes: EOMI, no lid lag, anicteric sclera Mouth: no lip lesion, mucus membranes moist Cardiovascular: S1S2 reg, no murmur, positive posterior tibial pulse bilateral, Lungs: course bs b/l bases , no accessory muscle use Abdominal: soft, nontender to palpation, no guarding, no appreciable organomegaly Ext: no gross muscle atrophy, 2+ edema, no contractures Neuro: CN II-XI grossly intact, no focal neuro deficits Psych: Alert, oriented, appropriate affect - Labs CBC & Chem 7: 01/27/18 14:05 01/29/18 07:17 Labs: Abnormal Lab Results - Last 24 Hours (Table) 01/27/18 01/28/18 01/28/18 Range/Units 14:05 11:18 17:03 Potassium (3.5-5.1) mmol/L BUN (9-20) mg/dL Creatinine (0.66-1.25) mg/dL POC Glucose (mg/dL) 211 H (75-99) mg/dL Hemoglobin A1c 9.0 H (4.0-6.0) % Iron 16 L (65-175) ug/dL Iron Saturation 6.43 L (15.00-50.00) Ferritin 830.9 H (22.0-322.0) ng/mL Albumin (3.5-5.0) g/dL 01/28/18 01/29/18 01/29/18 Range/Units 20:57 07:07 07:17 Potassium 5.3 H (3.5-5.1) mmol/L BUN 27 H (9-20) mg/dL Creatinine 3.60 H (0.66-1.25) mg/dL POC Glucose (mg/dL) 149 H 110 H (75-99) mg/dL Hemoglobin A1c (4.0-6.0) % Iron (65-175) ug/dL Iron Saturation (15.00-50.00) Ferritin (22.0-322.0) ng/mL Albumin 3.2 L (3.5-5.0) g/dL 01/29/18 Range/Units 11:24 Potassium (3.5-5.1) mmol/L BUN (9-20) mg/dL Creatinine (0.66-1.25) mg/dL POC Glucose (mg/dL) 211 H (75-99) mg/dL Hemoglobin A1c (4.0-6.0) % Iron (65-175) ug/dL Iron Saturation (15.00-50.00) Ferritin (22.0-322.0) ng/mL Albumin (3.5-5.0) g/dL Microbiology - Last 24 Hours (Table) 01/28/18 11:20 Blood Culture - Preliminary Blood No Growth after 24 hours 01/27/18 15:38 Urine Culture - Final Urine,Catheterized 01/27/18 14:05 Blood Culture - Preliminary Blood No Growth after 24 hours 01/27/18 13:15 Blood Culture - Preliminary Blood No Growth after 24 hours Assessment and Plan Assessment: Fever with concern for bacteremia - await blood cultures - ID recs - vanco and zosyn - follow fever profile MARGARITA on CKD currently HD dependent - Management per nephrology Anemia of chronic kidney disease - on ferrous gluconate and aranesp - follow intermittent CBC DM 2 with neuropathy - fixed dose and SSI with novol, levemir, follow BS -A1C 9 Compensated diastolic CHF - fluid control with HD and lasix - Coreg - No ACEI due to hx of hyperkalemia HTN, improved control - continue current meds - follow BP Hepatitis C - currently on Mavyret has not been receiving this hospital stay as did not bring in from home. Chronic: HLD Asthma COPD DVT prophylaxis: Heparin Discussed with: Patient, nursing, nephrology Anticipated discharge: 24-[address]: back to [facility] A total of 35 minutes was spent on the care of this complex patient more than 50 % of the time was spent in counseling and care coordination.
[2018-01-29 17:04] LABS: Glucose,Whole Blood 219 mg/dL (75-99)
[2018-01-29] MEDS: MAGNESIUM OXIDE 400 MG TAB PO SCH (17:46)
[2018-01-29 20:38] LABS: Glucose,Whole Blood 221 mg/dL (75-99)
[2018-01-29] MEDS: ATORVASTATIN 20 MG TAB PO SCH (21:02)
[2018-01-29] MEDS: INSULIN DETEMIR 100 UNIT/ML 10 ML VIAL SQ SCH (21:02)
--- NOTE | 2018-01-29 21:52 | PN ---
PROGRESS NOTE DATE OF SERVICE: 01/29/2018. REASON FOR FOLLOWUP: Fever and a question of possible dialysis catheter infection. INTERVAL HISTORY: The patient is currently afebrile, has been breathing comfortably. Denies significant chest pain. No cough. No abdominal pain. No diarrhea. EXAMINATION: Blood pressure 108/54, with a pulse of 55, temperature 97.4. He is 92% 3 L nasal cannula. General description is an elderly male lying in bed in no distress. Respiratory system: Unlabored breathing. Clear to auscultation anteriorly. Heart S1, S2. Regular rate and rhythm. ABDOMEN: Soft, no tenderness. LABS: BUN of 27, creatinine 3.60. Blood culture has been negative so far. DIAGNOSTIC IMPRESSION AND PLAN: Patient admitted to the hospital with a fever in a patient with no clinical focus of infection with concern for possible dialysis catheter infection. However, his blood culture has been negative. That will not be likely with the underlying history of infection. His urine was negative. Chest x-ray was negative. Currently on Zosyn and vancomycin. However, the cultures remain to be negative. We will recommend discontinuation of antibiotic and watching closely off antibiotic therapy. Continue supportive care. No need to remove his dialysis access catheter at this point. MMODL / IJN: [id number] /
[2018-01-30] MEDS: hydrALAZINE HCL 50 MG TAB PO SCH ×3 (06:13→20:50)
[2018-01-30] MEDS: FUROSEMIDE 80 MG TAB PO SCH ×2 (06:13→14:35)
[2018-01-30] MEDS: GABAPENTIN 100 MG CAP PO SCH ×3 (06:13→20:50)
[2018-01-30 07:23] LABS: Glucose,Whole Blood 103 mg/dL (75-99)
[2018-01-30] MEDS: INSULIN ASPART 100 UNIT/ML 1 ML 10 ML VIAL SQ SCH ×6 (07:29→20:51)
[2018-01-30] MEDS: NIFEdipine XL 30 MG TAB.ER.24 PO SCH (07:41)
[2018-01-30] MEDS: PANTOPRAZOLE 40 MG TABLET PO SCH (07:41)
[2018-01-30] MEDS: ISOSORBIDE MONONITRATE ER 60 MG TAB.ER.24H PO SCH (07:41)
[2018-01-30] MEDS: HEPARIN SODIUM,PORCINE 5,000 UNIT/ML 1 ML VIAL SQ SCH ×2 (07:41→20:50)
[2018-01-30] MEDS: CARVEDILOL 12.5 MG TAB PO SCH ×2 (07:41→17:57)
[2018-01-30] MEDS: PIPERACILLIN-TAZOBACTAM 3.375 GM in DEXTROSE/WATER 1 50ML.BAG IVPB SCH ×2 (07:41→12:23)
[2018-01-30] MEDS: PIBRENTASVIR PO SCH (07:43)
[2018-01-30] MEDS: GLECAPREVIR PO SCH (07:43)
[2018-01-30 08:50] LABS: Potassium 5.2 mmol/L (3.5-5.1)
[2018-01-30 08:55] LABS: Vancomycin,Random 20.2 ug/mL
[2018-01-30 10:46] LABS: HCT 27.3 % (39.0-53.0); HGB 8.2 gm/dL (13.0-17.5); Hypochromasia Moderate; MCH 27.6 pg (25.0-35.0); MCHC 30.2 g/dL (31.0-37.0); MCV 91.6 fL (80.0-100.0); Mean Platelet Volume 9.8; Platelet Count 201 k/uL (150-450); RBC 2.98 m/uL (4.30-5.90); RDW 13.9 % (11.5-15.5); WBC 9.2 k/uL (3.8-10.6)
[2018-01-30 11:50] VITALS: BMI 35.0
[2018-01-30 11:57] LABS: Glucose,Whole Blood 173 mg/dL (75-99)
[2018-01-30] MEDS: SODIUM FERRIC GLUCONAT-SUCROSE 125 MG in SODIUM CHLORIDE 0.9% 100 ML IVPB SCH (12:12)
--- NOTE | 2018-01-30 14:17 | P.PN ---
Subjective Patient is seen in follow-up for acute kidney injury currently hemodialysis dependent maintained on a Friday schedule. Patient presented with fever. There is concern that the groin dialysis catheter is infected. Cultures have been negative. He is off antibiotics at this time. Patient is not a very reliable historian. States he wants to go home. Vital signs are stable. General: The patient appeared well nourished and normally developed. HEENT: Head exam is unremarkable. Neck is without jugular venous distension. LUNGS: Lungs are clear to auscultation and percussion. Breath sounds decreased. HEART: Rate and Rhythm are regular. First and second heart sounds normal. No murmurs, rubs or gallops. ABDOMEN: Abdominal exam reveals normal bowel sounds. Non-tender and non- distended. No evidence of peritonitis. EXTREMITITES: No clubbing, cyanosis, or edema. Objective - Vital Signs Vital signs: Vital Signs Temp 98.5 F 01/30/18 05:41 Pulse 56 L 01/30/18 05:41 Resp 22 01/30/18 05:41 BP 150/70 01/30/18 05:41 Pulse Ox 93 L 01/30/18 05:41 Intake & Output 01/29/18 01/30/18 01/30/18 18:59 06:59 18:59 Intake Total 150 100 Output Total 50 Balance 150 50 Weight 104.6 kg 104.6 kg Intake: Intake, IV Titration 150 Amount Piperacillin-Tazobactam 3 50 .375 gm In Dextrose/Water 1 50ml.bag @ 12.5 mls/hr IVPB Q12HR [facility] Rx#: [id number] Sodium Ferric Gluconat- 100 Sucrose 125 mg In Sodium Chloride 0.9% 100 ml @ 100 mls/hr IVPB DAILY [facility] Rx#:[id number] Oral 100 Output: Urine 50 Other: Voiding Method Incontinent Incontinent # Bowel Movements 1 - Labs CBC & Chem 7: 01/30/18 07:07 01/30/18 07:07 Labs: Abnormal Lab Results - Last 24 Hours (Table) 01/29/18 01/29/18 01/30/18 Range/Units 17:03 20:37 07:07 RBC (4.30-5.90) m/uL Hgb (13.0-17.5) gm/dL Hct (39.0-53.0) % MCHC (31.0-37.0) g/dL Sodium 135 L (137-145) mmol/L Potassium 5.2 H (3.5-5.1) mmol/L BUN 33 H (9-20) mg/dL Creatinine 4.80 H (0.66-1.25) mg/dL Glucose 100 H (74-99) mg/dL POC Glucose (mg/dL) 219 H 221 H (75-99) mg/dL 01/30/18 01/30/18 01/30/18 Range/Units 07:07 07:21 11:56 RBC 2.98 L (4.30-5.90) m/uL Hgb 8.2 L (13.0-17.5) gm/dL Hct 27.3 L (39.0-53.0) % MCHC 30.2 L (31.0-37.0) g/dL Sodium (137-145) mmol/L Potassium (3.5-5.1) mmol/L BUN (9-20) mg/dL Creatinine (0.66-1.25) mg/dL Glucose (74-99) mg/dL POC Glucose (mg/dL) 103 H 173 H (75-99) mg/dL Microbiology - Last 24 Hours (Table) 01/28/18 11:20 Blood Culture - Preliminary Blood No Growth after 48 hours 01/27/18 14:05 Blood Culture - Preliminary Blood No Growth after 48 hours 01/28/18 13:20 Blood Culture - Preliminary Blood No Growth after 24 hours 01/27/18 13:15 Blood Culture - Preliminary Blood No Growth after 48 hours Assessment and Plan Plan: Assessment: 1. Acute kidney injury currently hemodialysis dependent maintain on a Friday schedule via groin catheter. No hydronephrosis noted on CT of the abdomen and pelvis done earlier this month. 2. Fever. Concern for catheter infection. Infectious disease following. antibiotics discontinued. 3. Benign hypertension. controlled. 4. Insulin-dependent diabetes mellitus. 5. Anemia. Iron deficiency noted. 6. Hyperkalemia secondary to acute kidney injury. Improved postdialysis. 7. Hepatitis C. 8. Diastolic CHF. 9. Hyperphosphatemia secondary to acute kidney injury. Phos 5.4. Expect improvement with dialysis. Plan: Hemodialysis on Friday. Ferrlecit 125 mg IV daily for 3 days. Second dose today. Maintain Aranesp. Continue Lasix 80 mg orally twice daily. Follow-up cultures. Will continue to monitor renal function for recovery. Discontinued Fleet enemas.
--- NOTE | 2018-01-30 16:34 | P.PN ---
Subjective Progress Note Date: 01/30/18 (Delayed charting patient seen at approximately 11 AM) Principal diagnosis: altered mentation Patient is a 72-year-old -[place] male with a past medical history of coronary artery disease, systolic congestive heart failure, prior pancreatitis, multiple other medical comorbidities who presented to the emergency department from [facility] with altered mentation and Fever. He had just left the hospital after a prolonged stay for MARGARITA requiring HD on CKD, AE CHF, Pancreatitis, and abdominal infections with possible UTI. He was seen in the emergency department and was found ot have elevated potassium and mildly elevated troponin. His UA and CXR were negative. Blood cultures were obtained. He was started on vano and zosyn and was admitted. He was seen by ID and nephrology. Concern is for possible infected HD cath. Blood cultures were negative for 24 hours including one removed from pORT. Patient may have an isolated febrile event. Infectious disease recommended monitoring the patient off antibiotics and antibiotics were discontinued the morning of 01/30. Patient seen and examined at bedside. Feeling very fatigued on dialysis today. No chest pain or shortness of breath. No nausea or vomiting. per HD nurse at bedside patient had crackles prior to starting dialysis. Objective - Vital Signs Vital signs: Vital Signs Temp 98.5 F 01/30/18 05:41 Pulse 61 01/30/18 15:40 Resp 22 01/30/18 15:40 BP 150/70 01/30/18 05:41 Pulse Ox 93 L 01/30/18 05:41 Intake & Output 01/29/18 01/30/18 01/30/18 18:59 06:59 18:59 Intake Total 150 100 100 Output Total 50 Balance 150 50 100 Weight 104.6 kg 104.6 kg Intake: Intake, IV Titration 150 100 Amount Piperacillin-Tazobactam 3 50 .375 gm In Dextrose/Water 1 50ml.bag @ 12.5 mls/hr IVPB Q12HR [facility] Rx#: [id number] Sodium Ferric Gluconat- 100 100 Sucrose 125 mg In Sodium Chloride 0.9% 100 ml @ 100 mls/hr IVPB DAILY [facility] Rx#:[id number] Oral 100 Output: Urine 50 Other: Voiding Method Incontinent Incontinent Incontinent # Bowel Movements 1 - Exam General: non toxic, no distress, appears at stated age Derm: warm, dry Head: atraumatic, normocephalic, symmetric Eyes: EOMI, no lid lag, anicteric sclera Mouth: no lip lesion, mucus membranes moist Cardiovascular: S1S2 reg, no murmur, positive posterior tibial pulse bilateral, Lungs: Decreased breath sounds bilateral bases, no accessory muscle use Abdominal: soft, nontender to palpation, no guarding, no appreciable organomegaly Ext: no gross muscle atrophy, 2+ edema, no contractures Neuro: CN II-XI grossly intact, no focal neuro deficits Psych: Alert, oriented, appropriate affect, fatigued and somnolent - Labs CBC & Chem 7: 01/30/18 07:07 01/30/18 07:07 Labs: Abnormal Lab Results - Last 24 Hours (Table) 01/29/18 01/29/18 01/30/18 Range/Units 17:03 20:37 07:07 RBC (4.30-5.90) m/uL Hgb (13.0-17.5) gm/dL Hct (39.0-53.0) % MCHC (31.0-37.0) g/dL Sodium 135 L (137-145) mmol/L Potassium 5.2 H (3.5-5.1) mmol/L BUN 33 H (9-20) mg/dL Creatinine 4.80 H (0.66-1.25) mg/dL Glucose 100 H (74-99) mg/dL POC Glucose (mg/dL) 219 H 221 H (75-99) mg/dL 01/30/18 01/30/18 01/30/18 Range/Units 07:07 07:21 11:56 RBC 2.98 L (4.30-5.90) m/uL Hgb 8.2 L (13.0-17.5) gm/dL Hct 27.3 L (39.0-53.0) % MCHC 30.2 L (31.0-37.0) g/dL Sodium (137-145) mmol/L Potassium (3.5-5.1) mmol/L BUN (9-20) mg/dL Creatinine (0.66-1.25) mg/dL Glucose (74-99) mg/dL POC Glucose (mg/dL) 103 H 173 H (75-99) mg/dL Microbiology - Last 24 Hours (Table) 01/28/18 13:20 Blood Culture - Preliminary Blood No Growth after 48 hours 01/27/18 13:15 Blood Culture - Preliminary Blood No Growth after 72 hours 01/28/18 11:20 Blood Culture - Preliminary Blood No Growth after 48 hours 01/27/18 14:05 Blood Culture - Preliminary Blood No Growth after 48 hours Assessment and Plan Assessment: Fever with concern for bacteremia -Blood cultures negative for 48 hours - ID recs: Stop Vanco and Zosyn, monitor fever profile off antibiotics MARGARITA on CKD currently HD dependent - Management per nephrology Anemia of chronic kidney disease - on ferrous gluconate and aranesp - follow intermittent CBC DM 2 with neuropathy - fixed dose and SSI with novol, levemir, follow BS -A1C 9 Compensated diastolic CHF - fluid control with HD and lasix - Coreg - No ACEI due to hx of hyperkalemia HTN, improved control - continue current meds - follow BP Hepatitis C - currently on Mavyret has not been receiving this hospital stay as did not bring in from home. Chronic: HLD Asthma COPD DVT prophylaxis: Heparin Discussed with: Patient, nursing, nephrology Anticipated discharge: 24 HOURS, hope to be able to D/C back to [facility] in AM. Anticipated discharge place: back to [facility] A total of 35 minutes was spent on the care of this complex patient more than 50 % of the time was spent in counseling and care coordination.
--- NOTE | 2018-01-30 17:23 | PN ---
PROGRESS NOTE DATE OF SERVICE: 01/30/2018 REASON FOR FOLLOWUP: Fever with a question of possible PermCath infection. INTERVAL HISTORY: The patient has been afebrile for more than 72 hours now. The patient has been breathing comfortably. Denies having any chest pain. No shortness of breath or cough. No abdominal pain or any diarrhea. PHYSICAL EXAMINATION: Blood pressure 125/57 with a pulse of 65, temperature 98.1. He is 99% on 4 L nasal cannula. General description is an elderly male lying in bed in no distress. RESPIRATORY SYSTEM: Unlabored breathing. Clear to auscultation anteriorly. HEART: S1, S2. Regular rate and rhythm. ABDOMEN: Soft. No tenderness. LABS: Hemoglobin 8.2, white count 9.2 with BUN of 33, creatinine 4.80. Blood culture has been negative. DIAGNOSTIC IMPRESSION AND PLAN: Patient with a fever with concern for possible PermCath site infection; however, blood culture has been negative. That will make it unlikely. The patient is currently with no other clinical focus of infection. His antibiotic has been discontinued. Will continue to monitor the patient closely off antibiotic therapy. Continue with supportive care. MMODL / IJN: [id number] /
[2018-01-30 17:28] LABS: Glucose,Whole Blood 141 mg/dL (75-99)
[2018-01-30] MEDS: MAGNESIUM OXIDE 400 MG TAB PO SCH (17:57)
[2018-01-30 20:19] LABS: Glucose,Whole Blood 176 mg/dL (75-99)
[2018-01-30] MEDS: ATORVASTATIN 20 MG TAB PO SCH (20:50)
[2018-01-30] MEDS: INSULIN DETEMIR 100 UNIT/ML 10 ML VIAL SQ SCH (20:51)
[2018-01-31] MEDS: FUROSEMIDE 80 MG TAB PO SCH ×2 (06:28→14:01)
[2018-01-31] MEDS: hydrALAZINE HCL 50 MG TAB PO SCH ×2 (06:28→09:11)
[2018-01-31] MEDS: GABAPENTIN 100 MG CAP PO SCH ×2 (06:28→14:01)
[2018-01-31 06:34] VITALS: BP 153/76; PULSE 64; TEMP 97
[2018-01-31 07:13] LABS: Glucose,Whole Blood 107 mg/dL (75-99)
[2018-01-31 09:05] LABS: Calcium 8.8 mg/dL (8.4-10.2); Potassium 4.7 mmol/L (3.5-5.1)
[2018-01-31] MEDS: INSULIN ASPART 100 UNIT/ML 1 ML 10 ML VIAL SQ SCH ×3 (09:11→14:01)
[2018-01-31] MEDS: NIFEdipine XL 30 MG TAB.ER.24 PO SCH (09:11)
[2018-01-31] MEDS: ISOSORBIDE MONONITRATE ER 60 MG TAB.ER.24H PO SCH (09:11)
[2018-01-31] MEDS: CARVEDILOL 12.5 MG TAB PO SCH (09:11)
[2018-01-31] MEDS: PANTOPRAZOLE 40 MG TABLET PO SCH (09:11)
[2018-01-31] MEDS: PIBRENTASVIR PO SCH (09:12)
[2018-01-31] MEDS: HEPARIN SODIUM,PORCINE 5,000 UNIT/ML 1 ML VIAL SQ SCH (09:12)
[2018-01-31] MEDS: GLECAPREVIR PO SCH (09:12)
[2018-01-31] MEDS: SODIUM FERRIC GLUCONAT-SUCROSE 125 MG in SODIUM CHLORIDE 0.9% 100 ML IVPB SCH (10:03)
[2018-01-31 10:05] LABS: HCT 26.5 % (39.0-53.0); HGB 8.2 gm/dL (13.0-17.5); Hypochromasia Marked; MCH 28.5 pg (25.0-35.0); MCHC 31.1 g/dL (31.0-37.0); MCV 91.8 fL (80.0-100.0); Mean Platelet Volume 9.9; Platelet Count 186 k/uL (150-450); RBC 2.88 m/uL (4.30-5.90); RDW 13.9 % (11.5-15.5)
[2018-01-31 11:37] VITALS: RESP 18
[2018-01-31 11:40] LABS: Glucose,Whole Blood 114 mg/dL (75-99)
--- NOTE | 2018-01-31 13:06 | P.DS ---
Providers Date of admission: 01/27/18 15:40 Expected date of discharge: 01/31/18 Attending physician: Tanya Roy MD Consults: 01/27/18 15:37 Consult Physician Routine Consulting Provider: Marilu Rojas Consult Reason/Comments: arf Do you want consulting provider notified?: Yes 01/28/18 07:47 Consult Physician Routine Consulting Provider: Yoli Le Consult Reason/Comments: Fever Do you want consulting provider notified?: Yes Primary care physician: Joel Jalyen [facility] Course: Discharge Diagnosis: Fever, bacteremia ruled out MARGARITA on CKD currently HD dependent Anemia of chronic kidney disease DM 2 with neuropathy Compensated diastolic CHF HTN, improved control Hepatitis C HLD Asthma COPD Hospital Course: Patient is a 72-year-old -[place] male with a past medical history of coronary artery disease, systolic congestive heart failure, prior pancreatitis, multiple other medical comorbidities who presented to the emergency department from [facility] with altered mentation and Fever. He had just left the hospital after a prolonged stay for MARGARITA requiring HD on CKD, AE CHF, Pancreatitis, and abdominal infections with possible UTI. He was seen in the emergency department and was found ot have elevated potassium and mildly elevated troponin. His UA and CXR were negative. Blood cultures were obtained. He was started on vano and zosyn and was admitted. He was seen by ID and nephrology. Concern is for possible infected HD cath. Blood cultures were negative for 24 hours including one removed from pORT. Patient may have an isolated febrile event. Infectious disease recommended monitoring the patient off antibiotics and antibiotics were discontinued the morning of 01/30. He was off antibiotics for 24 hours and did not spike fevers, his WBC count remained normal. His blood cultures were negative for 72 hours. He was feeling back to his normal self and was determined stable for discharge. Patient seen and examined at bedside. Denies any chest pain, shortness breath, nausea, or vomiting. Feeling back to baseline. Feeling well. Vital signs reviewed and stable. General: non toxic, no distress, appears at stated age Derm: warm, dry Head: atraumatic, normocephalic, symmetric Eyes: EOMI, no lid lag, anicteric sclera Mouth: no lip lesion, mucus membranes moist Cardiovascular: S1S2 reg, no murmur, positive posterior tibial pulse bilateral, Lungs: CTA bilateral, no rhonchi, no rales , no accessory muscle use Abdominal: soft, nontender to palpation, no guarding, no appreciable organomegaly Ext: no gross muscle atrophy, 2+ edema, no contractures Neuro: CN II-XI grossly intact, no focal neuro deficits, patient has a chronic stutter and his response which is his baseline. Psych: Alert, oriented, appropriate affect A total of 35 minutes of time were spent preparing this complex discharge summary . Patient Condition at Discharge: Fair Plan - Discharge Summary Discharge Rx Participant: No New Discharge Prescriptions: Continue Nitroglycerin Sl Tabs [Nitrostat] 0.4 mg SUBLINGUAL Q5M PRN PRN Reason: Angina Carvedilol 25 mg PO BID@0800,1700 Docusate [Colace] 100 mg PO HS PRN PRN Reason: Constipation Pantoprazole [Protonix] 40 mg PO AC-BRKFST tablet. Magnesium Oxide [Mag-Ox] 400 mg PO DAILY@1700 Atorvastatin [Lipitor] 20 mg PO HS@2100 Insulin Detemir [Levemir] 35 unit SQ HS@2100 Glecaprevir/Pibrentasvir [Mavyret 100-40 mg Tablet] 3 tab PO DAILY@0800 Insulin Aspart [NovoLOG (formulary)] 2 unit SQ AC-LUNCH #0 vial Polyethylene Glycol 3350 [Miralax] 17 gm PO DAILY PRN powd.pack PRN Reason: Constipation NIFEdipine XL [Procardia XL] 30 mg PO DAILY@0800 Isosorbide Mononitrate ER [Imdur] 60 mg PO DAILY@0800 Insulin Aspart [NovoLOG (formulary)] 4 unit SQ AC-SUPPER@1700 hydrALAZINE HCL [Apresoline] 100 mg PO TID@0600,1400,2100 Gabapentin [Neurontin] 100 mg PO TID@0600,1400,2100 Furosemide [Lasix] 80 mg PO BID@0600,1400 Bisacodyl 10 mg RECTAL DAILY PRN PRN Reason: Constipation HYDROcodone/APAP 7.5-325MG [[place] 7.5-325] 1 tab PO Q6HR PRN #28 tab PRN Reason: Pain Discontinued Na Phos,M-B/Na Phos,Di-Ba [Fleet Adult] 133 ml RECTAL DAILY PRN PRN Reason: Constipation Magnesium Hydroxide [Milk of Magnesia] 2,400 mg PO DAILY PRN PRN Reason: Constipation Insulin Aspart [NovoLOG (formulary)] See Protocol SQ ACHS Amoxic-Pot Clav 500-125 mg [Augmentin 500-125 mg] 1 tab PO BID@0800,1700 Discharge Medication List Nitroglycerin Sl Tabs [Nitrostat] 0.4 mg SUBLINGUAL Q5M PRN 11/28/13 [History] Carvedilol 25 mg PO BID@0800,1700 01/24/15 [History] Docusate [Colace] 100 mg PO HS PRN 06/07/15 [History] Pantoprazole [Protonix] 40 mg PO AC-BRKFST tablet. 09/23/17 [Rx] Atorvastatin [Lipitor] 20 mg PO HS@209901/06/18 [History] Glecaprevir/Pibrentasvir [Mavyret 100-40 mg Tablet] 3 tab PO DAILY@08 [History] Insulin Detemir [Levemir] 35 unit SQ HS@209901/06/18 [History] Magnesium Oxide [Mag-Ox] 400 mg PO DAILY@169901/06/18 [History] Insulin Aspart [NovoLOG (formulary)] 2 unit SQ AC-LUNCH #0 vial 01/21/18 [Rx] Polyethylene Glycol 3350 [Miralax] 17 gm PO DAILY PRN powd.pack 01/21/18 [Rx] Bisacodyl 10 mg RECTAL DAILY PRN 01/27/18 [History] Furosemide [Lasix] 80 mg PO BID@0600,1400 01/27/18 [History] Gabapentin [Neurontin] 100 mg PO TID@0600,1400,209901/27/18 [History] Insulin Aspart [NovoLOG (formulary)] 4 unit SQ AC-SUPPER@169901/27/18 [History] Isosorbide Mononitrate ER [Imdur] 60 mg PO DAILY@0801/27/18 [History] NIFEdipine XL [Procardia XL] 30 mg PO DAILY@0800 01/27/18 [History] hydrALAZINE HCL [Apresoline] 100 mg PO TID@0600,1400,209901/27/18 [History] HYDROcodone/APAP 7.5-325MG [Evers[place] 7.5-325] 1 tab PO Q6HR PRN #28 tab 01/31/18 [ Rx] Follow up Appointment(s)/Referral(s): Marilu Rojas MD [STAFF PHYSICIAN] - 1 Week Joel York MD [Primary Care Provider] - 1-2 days Activity/Diet/Wound Care/Special Instructions: pt is currently set up with [facility] - they were notified that the pt was in the hospital - they just need to be called when the pt is d/ c. - Hemodialysis on Fri, Fri, and Friday Renal carb consistent diet Actiivty as tolerated Fall precautions Physical and occupational therapy. Discharge Disposition: TRANSFER TO SNF/ECF
--- NOTE | 2018-01-31 15:42 | PN ---
PROGRESS NOTE DATE OF SERVICE: 01/31/2018. REASON FOR FOLLOWUP: Fever. INTERVAL HISTORY: The patient is currently afebrile. He is breathing comfortably. Denies having any chest pain or any cough. No abdominal pain and no diarrhea. EXAMINATION: Blood pressure 153/76 with a pulse of 74, temperature 97. He is 95% on 4 L nasal cannula. General description is an elderly male lying in bed in no distress. Respiratory system: Unlabored breathing. Clear to auscultation anteriorly. HEART: S1, S2. Regular rate and rhythm. Abdomen soft, no tenderness. LABS: Hemoglobin 8.8, white count 8.0, BUN of 18, creatinine of 3.71. Blood culture has been negative. DIAGNOSTIC IMPRESSION AND PLAN: Patient with fever with concern for possible source being his dialysis catheter. However, the culture has been negative making VRE unlikely. The patient is currently off antibiotics for more than 48 hours now with no evidence of any fever. No need for antibiotic on discharge. Continue supportive care. MMODL / IJN: [id number] /
--- NOTE | 2018-01-31 17:12 | PN ---
PROGRESS NOTE Patient is seen for followup for advanced renal failure, currently hemodialysis dependent. The patient is maintained on a Friday, Friday, Friday schedule. He was dialyzed yesterday. PHYSICAL EXAMINATION: Today, he is sleeping. He is comfortable, not in any acute distress. The patient is arousable but goes back to sleep. Blood pressure this morning was 153/76, heart rate 64 per minute. He is afebrile. Examination of the heart: S1, S2. Examination of the lungs: Bilateral breath sounds are heard. Abdomen is soft, nontender, obese. Examination lower extremities shows edema 1+ bilaterally. Chronic skin changes are noted. LAB: Show sodium 134, potassium 4.7, hemoglobin 8.2 g/dL. ASSESSMENT: 1. Hemodialysis dependent acute renal failure, currently maintained on Friday, Friday, Friday schedule. 2. Fever status post antibiotics, all cultures are negative, being followed by ID. 3. Hepatitis C. 4. Diastolic heart failure. 5. Hyperkalemia associated with renal failure, currently improved with dialysis. PLAN: Next dialysis will be on Friday. MMODL / IJN: [id number] /
== END 2018-01-31 16:25 | DRG 682 ==
LOC: EC 12:14 → 5MS5E 15:40 → 4MS4W 01-31 00:28
PROVIDERS: ADMIT Internal Medicine; ATTEND Internal Medicine
PROC: 5A1D70Z Performance of Urinary Filtration, Intermittent, Less than 6 Hours Per Day (ICD-10-PCS; principal; 2018-01-28)
DX: N17.9 Acute kidney failure, unspecified (principal); G93.41 Metabolic encephalopathy; I13.2 Hypertensive heart and chronic kidney disease with heart failure and with stage 5 chronic kidney disease, or end stage renal disease; I50.32 Chronic diastolic (congestive) heart failure; B19.20 Unspecified viral hepatitis C without hepatic coma; N18.6 End stage renal disease; D63.1 Anemia in chronic kidney disease; E11.22 Type 2 diabetes mellitus with diabetic chronic kidney disease; E11.42 Type 2 diabetes mellitus with diabetic polyneuropathy; E78.5 Hyperlipidemia, unspecified; E83.39 Other disorders of phosphorus metabolism; E87.5 Hyperkalemia; I25.10 Atherosclerotic heart disease of native coronary artery without angina pectoris; I25.2 Old myocardial infarction; J44.9 Chronic obstructive pulmonary disease, unspecified; R50.9 Fever, unspecified; M10.9 Gout, unspecified; M19.90 Unspecified osteoarthritis, unspecified site; M51.36 Other intervertebral disc degeneration, lumbar region; R01.1 Cardiac murmur, unspecified; R77.9 Abnormality of plasma protein, unspecified; R32 Unspecified urinary incontinence; Z79.4 Long term (current) use of insulin; Z79.899 Other long term (current) drug therapy; Z99.2 Dependence on renal dialysis; Z99.81 Dependence on supplemental oxygen; Z95.0 Presence of cardiac pacemaker; Z98.42 Cataract extraction status, left eye; Z98.41 Cataract extraction status, right eye; Z96.1 Presence of intraocular lens; Z80.9 Family history of malignant neoplasm, unspecified; Z82.49 Family history of ischemic heart disease and other diseases of the circulatory system
CPT/HCPCS: 36415; 71046; 80048; 80053; 80202; 81001; 82140; 82550; 82553; 82728; 83036; 83540; 83550; 83605; 83690; 83735; 84100; 84443; 84484; 85025; 85027; 85610; 85730; 87040; 87086; 90935; 93005; 93970; 96365; 96366; 96374; 99285

== ENCOUNTER 2018-11-04 00:10 | Inpatient (IN) | payer MEDICARE, OTHER ==
[2018-11-04] MEDS ORDERED: SODIUM CHLORIDE 0.9% 500 ML 500 ML IV STA (00:19)
[2018-11-04] MEDS ORDERED: VANCOMYCIN IV PER PHARMACY 1 EACH MISC MISCELLANE PRN (00:42)
[2018-11-04] MEDS ORDERED: CEFEPIME 2 GM in SODIUM CHLORIDE 0.9% 100 ML IVPB STA (00:42)
--- NOTE | 2018-11-04 00:42 | ED ---
General Adult HPI - General Chief complaint: Weakness Stated complaint: confused,lethargic Time Seen by Provider: 11/04/18 00:19 Source: patient, RN notes reviewed, old records reviewed Mode of arrival: EMS - History of Present Illness Initial comments: 73-year-old male presents with fever and lethargy. Patient was reported to have fever 101 at the [facility], increased lethargy throughout the day today. Patient has history of end-stage renal disease, last hemodialysis unknown at the time my evaluation. Patient unable to significantly contribute to history. He is lethargic and altered. - Related Data Home Medications Medication Instructions Recorded Confirmed Nitroglycerin Sl Tabs [Nitrostat] 0.4 mg SUBLINGUAL Q5M PRN 11/28/13 01/27/18 Carvedilol 25 mg PO BID@0800,169901/24/15 01/27/18 Docusate [Colace] 100 mg PO HS PRN 06/07/15 01/27/18 Atorvastatin [Lipitor] 20 mg PO HS@209901/06/18 01/27/18 Glecaprevir/Pibrentasvir [Mavyret 3 tab PO DAILY@79901/06/18 01/27/18 100-40 mg Tablet] Insulin Detemir (Levemir) [Levemir] 35 unit SQ HS@209901/06/18 01/27/18 Magnesium Oxide [Mag-Ox] 400 mg PO DAILY@169901/06/18 01/27/18 Bisacodyl 10 mg RECTAL DAILY PRN 01/27/18 01/27/18 Furosemide [Lasix] 80 mg PO BID@0600,1400 01/27/18 01/27/18 Gabapentin [Neurontin] 100 mg PO TID@0600,1400,209901/27/18 01/27/18 INSULIN ASPART (NovoLOG) [NovoLOG 4 unit SQ AC-SUPPER@169901/27/18 01/27/18 (formulary)] Isosorbide Mononitrate ER [Imdur] 60 mg PO DAILY@0800 01/27/18 01/27/18 NIFEdipine XL [Procardia XL] 30 mg PO DAILY@0800 01/27/18 01/27/18 hydrALAZINE HCL [Apresoline] 100 mg PO TID@0600,1400,2100 01/27/18 01/27/18 Previous Rx's Medication Instructions Recorded Pantoprazole [Protonix] 40 mg PO AC-BRKFST tablet. 09/23/17 INSULIN ASPART (NovoLOG) [NovoLOG 2 unit SQ AC-LUNCH #0 vial 01/21/18 (formulary)] Polyethylene Glycol 3350 [Miralax] 17 gm PO DAILY PRN powd.pack 01/21/18 HYDROcodone/APAP 7.5-325MG [[place] 1 tab PO Q6HR PRN #28 tab 01/31/18 7.5-325] Allergies Allergy/AdvReac Type Severity Reaction Status Date / Time No Known Allergies Allergy Verified 01/27/18 12:49 Review of Systems ROS Statement: Those systems with pertinent positive or pertinent negative responses have been documented in the HPI. ROS Other: All systems not noted in ROS Statement are negative. 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 liver biopsy on 10-18-13, Past Anesthesia/Blood Transfusion Reactions: No Reported Reaction Type of Cardiac Device: Permanent Pacemaker Device Placement Date:: 2013? pt unsure Past Psychological History: Bipolar, Depression Smoking Status: Never smoker - Past Family History Mother Family Medical History: Hypertension Sister(s) Family Medical History: Cancer Father History Unknown: Yes General Exam General appearance: in no apparent distress, lethargic Head exam: Present: atraumatic, normocephalic Eye exam: Present: normal appearance ENT exam: Present: mucous membranes dry Neck exam: Present: normal inspection. Absent: tenderness, meningismus Respiratory exam: Present: rhonchi (Bilateral). Absent: respiratory distress Cardiovascular Exam: Present: regular rate, normal rhythm GI/Abdominal exam: Present: soft, distended. Absent: tenderness, guarding Extremities exam: Present: pedal edema, other (Incisions in the right proximal thigh, no ALLERGIES cellulitis, no purulent drainage, appear several days old.) Neurological exam: Absent: motor sensory deficit Skin exam: Present: warm, dry, intact. Absent: cyanosis, diaphoretic Course Vital Signs 11/04/18 11/04/18 11/04/18 00:14 00:16 01:40 Temperature 99.4 F Pulse Rate 68 73 61 Respiratory 19 19 14 Rate Blood Pressure 125/63 125/63 129/71 O2 Sat by Pulse 98 96 Oximetry 11/04/18 11/04/18 02:00 02:10 Temperature Pulse Rate 72 63 Respiratory 20 10 L Rate Blood Pressure 152/78 O2 Sat by Pulse 99 Oximetry EKG Findings - EKG Comments: EKG Findings:: EKG: Atrial sensed ventricular paced rhythm rate of 74, KS interval 120, QRS duration 126, QTC 452 Medical Decision Making - Medical Decision Making 73-year-old male, end-stage renal disease on hemodialysis Friday presenting with increased lethargy, fever, weakness. Patient has nonfocal exam vital signs are stable in the emergency department. He is confused. Exam reveals mild fluid overload, he has incisions in the right proximal thigh, these do not appear infected on exam. Chest x-ray is obtained, consistent with mild fluid overload and concern for possible pneumonia given a history of fever he is treated for pneumonia with cefepime and vancomycin. He has normal white blood cell count stable hemoglobin, potassium is 6.4 which is treated with Keflex orally, insulin, dextrose, and calcium. Mild elevation in BUN of 39. Head CT is obtained which is negative for any acute intracranial abnormality. He will be admitted for treatment of healthcare associated pneumonia, concern for bacteremia, hyperkalemia. Nephrology placed on consult. - Lab Data Result diagrams: 11/04/18 01:32 11/04/18 01:32 Lab Results 11/04/18 11/04/18 11/04/18 Range/Units 01:32 01:32 01:32 WBC 5.7 (3.8-10.6) k/uL RBC 3.93 L (4.30-5.90) m/uL Hgb 11.8 L (13.0-17.5) gm/dL Hct 37.9 L (39.0-53.0) % MCV 96.5 (80.0-100.0) fL MCH 30.0 (25.0-35.0) pg MCHC 31.0 (31.0-37.0) g/dL RDW 14.1 (11.5-15.5) % Plt Count 139 L (150-450) k/uL Neutrophils % 76 % Lymphocytes % 9 % Monocytes % 7 % Eosinophils % 5 % Basophils % 0 % Neutrophils # 4.3 (1.3-7.7) k/uL Lymphocytes # 0.5 L (1.0-4.8) k/uL Monocytes # 0.4 (0-1.0) k/uL Eosinophils # 0.3 (0-0.7) k/uL Basophils # 0.0 (0-0.2) k/uL Hypochromasia Slight PT (9.0-12.0) sec INR (<1.2) APTT (22.0-30.0) sec VBG pH (7.31-7.41) VBG pCO2 (37-51) mmHg VBG HCO3 (24-28) mmol/L Sodium 135 L (137-145) mmol/L Potassium 6.4 H* (3.5-5.1) mmol/L Chloride 97 L (98-107) mmol/L Carbon Dioxide 30 (22-30) mmol/L Anion Gap 8 mmol/L BUN 39 H (9-20) mg/dL Creatinine 6.76 H (0.66-1.25) mg/dL Est GFR (CKD-EPI)AfAm 9 (>60 ml/min/1.73 sqM) Est GFR (CKD-EPI)NonAf 7 (>60 ml/min/1.73 sqM) Glucose 115 H (74-99) mg/dL POC Glucose (mg/dL) 112 H (75-99) mg/dL POC Glu Log Clerk ID [place] Plasma Lactic Acid Fermin (0.7-2.0) mmol/L Calcium 9.7 (8.4-10.2) mg/dL Magnesium 2.0 (1.6-2.3) mg/dL Total Bilirubin 0.4 (0.2-1.3) mg/dL AST 21 (17-59) U/L ALT 21 (21-72) U/L Alkaline Phosphatase 104 (38-126) U/L Creatine Kinase 65 (55-170) U/L Total Protein 7.9 (6.3-8.2) g/dL Albumin 4.3 (3.5-5.0) g/dL 11/04/18 11/04/18 11/04/18 Range/Units 01:32 01:32 02:23 WBC (3.8-10.6) k/uL RBC (4.30-5.90) m/uL Hgb (13.0-17.5) gm/dL Hct (39.0-53.0) % MCV (80.0-100.0) fL MCH (25.0-35.0) pg MCHC (31.0-37.0) g/dL RDW (11.5-15.5) % Plt Count (150-450) k/uL Neutrophils % % Lymphocytes % % Monocytes % % Eosinophils % % Basophils % % Neutrophils # (1.3-7.7) k/uL Lymphocytes # (1.0-4.8) k/uL Monocytes # (0-1.0) k/uL Eosinophils # (0-0.7) k/uL Basophils # (0-0.2) k/uL Hypochromasia PT 10.3 (9.0-12.0) sec INR 1.0 (<1.2) APTT 27.0 (22.0-30.0) sec VBG pH 7.31 (7.31-7.41) VBG pCO2 57 H (37-51) mmHg VBG HCO3 28 (24-28) mmol/L Sodium (137-145) mmol/L Potassium (3.5-5.1) mmol/L Chloride (98-107) mmol/L Carbon Dioxide (22-30) mmol/L Anion Gap mmol/L BUN (9-20) mg/dL Creatinine (0.66-1.25) mg/dL Est GFR (CKD-EPI)AfAm (>60 ml/min/1.73 sqM) Est GFR (CKD-EPI)NonAf (>60 ml/min/1.73 sqM) Glucose (74-99) mg/dL POC Glucose (mg/dL) (75-99) mg/dL POC Glu Log Clerk ID Plasma Lactic Acid Fermin 1.0 (0.7-2.0) mmol/L Calcium (8.4-10.2) mg/dL Magnesium (1.6-2.3) mg/dL Total Bilirubin (0.2-1.3) mg/dL AST (17-59) U/L ALT (21-72) U/L Alkaline Phosphatase (38-126) U/L Creatine Kinase (55-170) U/L Total Protein (6.3-8.2) g/dL Albumin (3.5-5.0) g/dL Critical Care Time Critical Care Time: Yes Total Critical Care Time: 35 Disposition Clinical Impression: Pulmonary edema, ESRD (end stage renal disease) on dialysis, Altered mental status, Pneumonia, Hyperkalemia Disposition: ADMITTED IP TO THIS [facility] Condition: Stable Is patient prescribed a controlled substance at d/c from ED?: No Referrals: Joel York MD [Primary Care Provider] - 1-2 days Decision to Admit Reason: Admit from EC Decision Date: 11/04/18 Decision Time: 03:36
[2018-11-04] MEDS ORDERED: VANCOMYCIN 1,750 MG in SODIUM CHLORIDE 0.9% 500 ML 500 ML IVPB STA (00:46)
[2018-11-04 01:34] LABS: Glucose,Whole Blood 112 mg/dL (75-99)
[2018-11-04 01:43] LABS: Basophils % (A) 0 %; Eosinophils # (A) 0.3 k/uL (0-0.7); Eosinophils % (A) 5 %; HCT 37.9 % (39.0-53.0); HGB 11.8 gm/dL (13.0-17.5); Hypochromasia Slight; Lymphocytes # (A) 0.5 k/uL (1.0-4.8); Lymphocytes % (A) 9 %; MCV 96.5 fL (80.0-100.0); Mean Platelet Volume 9.2; Monocytes # (A) 0.4 k/uL (0-1.0); Monocytes % (A) 7 %; Neutrophils # (A) 4.3 k/uL (1.3-7.7); Neutrophils % (A) 76 %; Platelet Count 139 k/uL (150-450); RBC 3.93 m/uL (4.30-5.90); RDW 14.1 % (11.5-15.5); WBC 5.7 k/uL (3.8-10.6)
[2018-11-04 01:48] LABS: Albumin 4.3 g/dL (3.5-5.0); Calcium 9.7 mg/dL (8.4-10.2); Total Bilirubin 0.4 mg/dL (0.2-1.3); Total Protein 7.9 g/dL (6.3-8.2)
[2018-11-04 01:53] LABS: Prothrombin Time 10.3 sec (9.0-12.0)
[2018-11-04 01:54] LABS: Potassium 6.4 mmol/L (3.5-5.1)
[2018-11-04] MEDS ORDERED: SODIUM POLYSTYRENE SULFONATE 15 GM/60 ML BOTTLE PO ONE (01:55)
[2018-11-04] MEDS ORDERED: DEXTROSE 50% SYRINGE 50 ML IVP ONE (01:55)
[2018-11-04] MEDS ORDERED: INSULIN REGULAR 100 UNIT/ML VIAL IV ONE (01:55)
[2018-11-04] MEDS ORDERED: CALCIUM GLUCONATE 1 GM in SODIUM CHLORIDE 0.9% 100 ML IVPB ONE (01:55)
--- NOTE | 2018-11-04 02:18 | XR ---
EXAM: XR Chest, 2 Views CLINICAL HISTORY: Weakness. TECHNIQUE: Frontal and lateral views of the chest. COMPARISON: CXR dated 01/27/2018. FINDINGS: Lungs: Basilar opacities (L>R). Suspect mild pulmonary vascular congestion. Pleural space: Small pleural effusions not excluded. No pneumothorax. Heart: Stable enlargement of cardiac silhouette. Stable cardiac device. Mediastinum: Unremarkable. Bones/joints: Unremarkable. IMPRESSION: 1. Basilar opacities (L>R) which may represent atelectasis although basilar infiltrate(s) or other process cannot be excluded. 2. Suspect mild pulmonary vascular congestion. 3. Stable enlargement of cardiac silhouette and stable cardiac device.
--- NOTE | 2018-11-04 02:22 | CT ---
EXAM: CT Head Without Intravenous Contrast CLINICAL HISTORY: Pain. TECHNIQUE: Axial computed tomography images of the head/brain without intravenous contrast. Coronal and sagittal reformatted images were created and reviewed. CTDI is 49.27 mGy and DLP is 1129.4 mGy-cm. This CT exam was performed using one or more of the following dose reduction techniques: automated exposure control, adjustment of the mA and/or kV according to patient size, and/or use of iterative reconstruction technique. COMPARISON: CT dated 03/29/2016. FINDINGS: Brain: No acute intracranial hemorrhage. No evidence of acute territorial infarct. No mass effect or midline shift. Atrophy and chronic small vessel schema disease. Ventricles: Unremarkable for age. No ventriculomegaly. Bones/joints: Stable chronic deformity of right medial orbital wall. No acute skull fracture. Soft tissues: Unremarkable. Sinuses: Unremarkable as visualized. No acute sinusitis. Mastoid air cells: Unremarkable as visualized. No mastoid effusion. IMPRESSION: 1. No evidence of acute intracranial abnormality. 2. Atrophy and chronic small vessel ischemic disease.
[2018-11-04 03:15] LABS: VBG PH 7.31 (7.31-7.41)
[2018-11-04] MEDS ORDERED: ACETAMINOPHEN TAB 325 MG TAB PO PRN (03:31)
[2018-11-04] MEDS ORDERED: NALOXONE 0.4 MG/ML 1 ML VIAL IV PRN (03:31)
[2018-11-04 04:36] VITALS: BMI 35.5
[2018-11-04] MEDS ORDERED: HYDROcodone/APAP 7.5-325MG 1 EACH TAB PO PRN (05:41)
[2018-11-04] MEDS ORDERED: DOCUSATE 100 MG CAP PO PRN (05:41)
[2018-11-04] MEDS ORDERED: POLYETHYLENE GLYCOL 3350 17 GM POWD.PACK PO PRN (05:41)
[2018-11-04] MEDS ORDERED: NITROGLYCERIN SL TABS 0.4 MG TAB SUBLINGUAL PRN (05:41)
[2018-11-04] MEDS ORDERED: BISACODYL 10 MG SUPP RECTAL PRN (05:41)
[2018-11-04] MEDS: GABAPENTIN 100 MG CAP PO SCH ×3 (06:23→20:30)
[2018-11-04] MEDS: hydrALAZINE HCL 50 MG TAB PO SCH ×3 (06:23→20:30)
[2018-11-04] MEDS: FUROSEMIDE 80 MG TAB PO SCH ×2 (06:23→14:00)
[2018-11-04] MEDS: PANTOPRAZOLE 40 MG TABLET PO SCH (06:23)
[2018-11-04 06:53] LABS: Glucose,Whole Blood 84 mg/dL (75-99)
[2018-11-04 07:13] LABS: Albumin 4.2 g/dL (3.5-5.0); Calcium 9.5 mg/dL (8.4-10.2); Phosphorus 3.4 mg/dL (2.5-4.5); Total Bilirubin 0.6 mg/dL (0.2-1.3); Total Protein 7.9 g/dL (6.3-8.2)
[2018-11-04 07:26] LABS: Magnesium 1.8 mg/dL (1.6-2.3)
[2018-11-04 07:58] LABS: HCT 38.5 % (39.0-53.0); HGB 11.8 gm/dL (13.0-17.5); Hypochromasia Marked; MCHC 30.6 g/dL (31.0-37.0); MCV 97.9 fL (80.0-100.0); Mean Platelet Volume 10.5; RBC 3.94 m/uL (4.30-5.90); WBC 8.4 k/uL (3.8-10.6)
[2018-11-04] MEDS ORDERED: CEFEPIME 2 GM in SODIUM CHLORIDE 0.9% 100 ML IVPB SCH (08:00)
[2018-11-04 08:01] LABS: Platelet Count 107 k/uL (150-450)
[2018-11-04] MEDS: Glecaprevir/Pibrentasvir [Mavyret 100-40 Mg Tablet] PO SCH (08:21)
[2018-11-04] MEDS: ISOSORBIDE MONONITRATE ER 60 MG TAB.ER.24H PO SCH (08:25)
[2018-11-04] MEDS: methylPREDNISolone SOD SUCCI 125 MG/2 ML VIAL IV SCH ×3 (08:25→22:47)
[2018-11-04] MEDS: NIFEdipine XL 30 MG TAB.ER.24 PO SCH (08:25)
[2018-11-04] MEDS: CARVEDILOL 12.5 MG TAB PO SCH ×2 (08:25→18:22)
[2018-11-04] MEDS: IPRATROPIUM-ALBUTEROL 3 ML NEB INHALATION SCH ×4 (08:50→19:31)
[2018-11-04 09:00] LABS: Eosinophils # (M) 0.17 k/uL (0-0.7); Lymphocytes # (M) 1.26 k/uL (1.0-4.8); Monocytes # (M) 0.76 k/uL (0-1.0); Neutrophils # (M) 6.22 k/uL (1.3-7.7); Neutrophils % (M) 74 %; Nucleated Red Blood Cells 0 /100 WBC (0-0); Total Cells Counted 100
[2018-11-04 09:01] LABS: Large Platelets Present
--- NOTE | 2018-11-04 09:35 | P.NPCON ---
History of Present Illness - Reason for Consult end stage renal disease - History of Present Illness Reason for consultation: End-stage renal disease History of present illness: Patient is a 73-year-old male seen in renal consultation for end-stage renal disease. He is maintained on hemodialysis on a Friday schedule via AV fistula. Patient resides at an extended care facility. He was noted to be more lethargic and also had a fever of 101F. Patient was subsequently sent to the hospital. On admission his potassium level was 6.4 which was medically treated with IV insulin and Kayexalate. He also received a dose of IV calcium. Repeat potassium level came down to 6.0. He is due for hemodialysis today. Patient is currently resting in bed. He is quite lethargic. He is not able to provide much history. He is maintained on IV antibiotics. Cultures have been drawn and are pending. Hemodynamically stable. Vital signs are stable. General: The patient appeared well nourished and normally developed. HEENT: Head exam is unremarkable. Neck is without jugular venous distension. LUNGS: Breath sounds decreased. Scattered rhonchi. HEART: Rate and Rhythm are regular. First and second heart sounds normal. No murmurs, rubs or gallops. ABDOMEN: Abdominal exam reveals normal bowel sounds. Non-tender and non- distended. No evidence of peritonitis. EXTREMITITES: No clubbing, cyanosis, or edema. 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 liver biopsy on 10-18-13, Past Anesthesia/Blood Transfusion Reactions: No Reported Reaction Type of Cardiac Device: Permanent Pacemaker Device Placement Date:: 2013? pt unsure Past Psychological History: Bipolar, Depression Additional Psychological History / Comment(s): PT AT [facility] He uses a walker. BEFORE THAT HE WAS IN AN APT He does not drive-he used the bus to get places. has walker Smoking Status: Never smoker Past Alcohol Use History: Occasional Additional Past Alcohol Use History / Comment(s): Pt states he has an occasional beer but none since hospitalized 01/06/18 . Past Drug Use History: None Reported - Past Family History Mother Family Medical History: Hypertension Sister(s) Family Medical History: Cancer Father History Unknown: Yes Medications and Allergies Home Medications Medication Instructions Recorded Confirmed Type Nitroglycerin Sl Tabs [Nitrostat] 0.4 mg SUBLINGUAL Q5M PRN 11/28/13 11/04/18 History Docusate [Colace] 100 mg PO HS PRN 06/07/15 11/04/18 History Pantoprazole [Protonix] 40 mg PO AC-BRKFST tablet. 09/23/17 11/04/18 Rx Atorvastatin [Lipitor] 20 mg PO HS@2100 01/06/18 11/04/18 History Glecaprevir/Pibrentasvir [Mavyret 3 tab PO DAILY@0800 01/06/18 11/04/18 History 100-40 mg Tablet] Magnesium Oxide [Mag-Ox] 400 mg PO DAILY@1700 01/06/18 11/04/18 History INSULIN ASPART (NovoLOG) [NovoLOG 2 unit SQ AC-LUNCH #0 vial 01/21/18 11/04/18 Rx (formulary)] Polyethylene Glycol 3350 [Miralax] 17 gm PO DAILY PRN powd.pack 01/21/18 11/04/18 Rx Bisacodyl 10 mg RECTAL DAILY PRN 01/27/18 11/04/18 History Furosemide [Lasix] 80 mg PO BID@0600,1400 01/27/18 11/04/18 History INSULIN ASPART (NovoLOG) [NovoLOG 4 unit SQ AC-SUPPER@1700 01/27/18 11/04/18 History (formulary)] Isosorbide Mononitrate ER [Imdur] 60 mg PO DAILY@0800 01/27/18 11/04/18 History NIFEdipine XL [Procardia XL] 30 mg PO DAILY@0800 01/27/18 11/04/18 History hydrALAZINE HCL [Apresoline] 100 mg PO TID@0600,1400,2100 01/27/18 11/04/18 History Calcium Acetate [Phoslo] 667 mg PO TID@0800,1200,1700 11/04/18 11/04/18 History HYDROcodone/APAP 7.5-325MG [[place] 1 tab PO Q8H PRN 11/04/18 11/04/18 History 7.5-325] Insulin Glargine [Lantus] 28 unit SQ ONCE 11/04/18 11/04/18 History guaiFENesin [guaiFENesin Oral 200 mg PO Q4H PRN 11/04/18 11/04/18 History Solution] hydrALAZINE HCL [Apresoline] 50 mg PO ONCE PRN 11/04/18 11/04/18 History Allergies Allergy/AdvReac Type Severity Reaction Status Date / Time No Known Allergies Allergy Verified 11/04/18 09:06 Physical Exam Vitals: Vital Signs Temp Pulse Pulse Resp BP BP Pulse Ox 11/04/18 09:00 80 11/04/18 08:50 80 11/04/18 08:15 100.6 F H 78 18 174/67 92 L 11/04/18 04:27 98.4 F 73 18 155/71 100 11/04/18 03:50 68 16 136/78 99 11/04/18 03:40 67 18 146/62 11/04/18 03:20 68 15 160/74 11/04/18 03:10 65 24 150/77 97 11/04/18 03:00 98.4 F 11/04/18 02:50 67 20 136/40 99 11/04/18 02:40 64 23 153/74 99 11/04/18 02:20 62 6 L 168/75 99 11/04/18 02:10 63 10 L 152/78 11/04/18 02:00 98.4 F 72 20 99 04/24/19 01:40 61 14 129/71 11/04/18 00:16 99.4 F 73 19 125/63 96 11/04/18 00:14 68 19 125/63 98 Intake and Output 11/03/18 11/04/18 11/04/18 22:59 06:59 14:59 Intake Total 500 90 Balance 500 90 Intake: Intake, IV Titration 500 Amount Vancomycin 1,750 mg In 500 Sodium Chloride 0.9% 500 ml 500 ml @ 167 mls/hr IVPB ONCE STA Rx#: [id number] Oral 90 Other: Voiding Method Urinal Weight 112.4 kg Results - Lab Results Most recent lab results Calcium 9.5 mg/dL (8.4-10.2) 11/04/18 06:17 Phosphorus 3.4 mg/dL (2.5-4.5) 11/04/18 06:17 Magnesium 1.8 mg/dL (1.6-2.3) 11/04/18 06:17 11/04/18 06:17 11/04/18 06:17 Assessment and Plan Plan: Assessment: 1. End-stage renal disease maintained on hemodialysis on a Friday schedule. 2. Hyperkalemia secondary to chronic kidney disease. Expect improvement after dialysis today. 3. Pneumonia maintained on antibiotics. 4. Hypertension with chronic kidney disease. 5. Insulin-dependent diabetes mellitus. 6. Chronic kidney disease mineral bone disease maintained on PhosLo. Plan: Hemodialysis today. Resume PhosLo with meals. Renal diet. Follow-up cultures. Monitor vancomycin levels. Target level 15. Thank you for the consultation. I will continue to follow the patient with you during his hospital stay.
[2018-11-04 12:09] LABS: Glucose,Whole Blood 144 mg/dL (75-99)
--- NOTE | 2018-11-04 12:19 | P.HPIM ---
History of Present Illness H&P Date: 11/04/18 Chief Complaint: Sepsis, change mental status, aspiration pneumonia, noncont rolled hypertens 73-year-old male who of known for the last [address] [facility] who is a permanent resident since his end-stage renal disease on hemodialysis is known to have history of COPD atherosclerotic heart disease severe ischemic cardiopathy with ejection fraction of 20 percentile who had fistula graft of the right forearm done Dr. Dhillon few weeks ago and had dialysis line in the right femoral area was kept on for over 6 months was taking out recently. In the last few days patient has been having significant problem with blood pressure not been well controlled and running in the high 160-200, medication were adjusted. Patient developed to have worsening dyspnea and shortness of breath and significant altered mental status with the blood pressure being high patient was quite bit distress continue to have significant hypoxia ended up being sent from [facility] to the emergency department at [facility] where was evaluated found to have temperature of 102 mildly elevated white blood cell, patient clinically has aspiration pneumonia also has right groin worsening drainage from the dialysis line was taking out recently as a line infection. Patient was giving 1 g of Vanco started on Zosyn will be admitted to the hospital. Also his potassium was about 6 was giving bicarbonate and call nephrology patient will require to go for hemodialysis quickly today his chest x-ray revealed beside aspiration pneumonia fluid overload worsening in the right than the left side. Review of Systems CONSTITUTIONAL: Elderly, overweight looks in mild respiratory distress having mild cough. EYES: No icterus sclerae, no conjunctivitis. EARS, NOSE, MOUTH, THROAT, and FACE: No sore throat, lymphadenopathy, carotid bruits or deformity. RESPIRATORY: Positive shortness of breath cough wheezes. CARDIOVASCULAR: Positive palpitation with chest tightness and fluid overload with significantly elevated blood pressure. GASTROINTESTINAL: No Abd pain, Nausea or vomiting, no Diarrhea or constipation, No GI Bleed, no distention or masses. GENITOURINARY: On hemodialysis, still making limited amount of urine. INTEGUMENT/BREAST: Negative for any muscular injury with mild osteoarthritis.. HEMATOLOGIC/LYMPHATIC: Negative for bleed or purpura. MUSCULOSKELTAL: Generalized arthralgia and myalgia patient still have lower back pain and had significant problem with his mobility. NEURLOGICAL: Confused with significant altered mental status no blurred vision not been able to do and a gait exam. BEHAVIORAL/PSYCH: Mild depression. ENDOCRINE: Negative. 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 liver biopsy on 10-18-13, Past Anesthesia/Blood Transfusion Reactions: No Reported Reaction Type of Cardiac Device: Permanent Pacemaker Device Placement Date:: 2013? pt unsure Past Psychological History: Bipolar, Depression Additional Psychological History / Comment(s): PT AT [facility] He uses a walker. BEFORE THAT HE WAS IN AN APT He does not drive-he used the bus to get places. has walker Smoking Status: Never smoker Past Alcohol Use History: Occasional Additional Past Alcohol Use History / Comment(s): Pt states he has an occasional beer but none since hospitalized 01/06/18 . Past Drug Use History: None Reported - Past Family History Mother Family Medical History: Hypertension Sister(s) Family Medical History: Cancer Father History Unknown: Yes Medications and Allergies Home Medications Medication Instructions Recorded Confirmed Type Nitroglycerin Sl Tabs [Nitrostat] 0.4 mg SUBLINGUAL Q5M PRN 11/28/13 11/04/18 History Docusate [Colace] 100 mg PO BID 06/07/15 11/04/18 History Pantoprazole [Protonix] 40 mg PO AC-BRKFST tablet. 09/23/17 11/04/18 Rx Atorvastatin [Lipitor] 20 mg PO HS@2100 01/06/18 11/04/18 History Glecaprevir/Pibrentasvir [Mavyret 3 tab PO DAILY@0800 01/06/18 11/04/18 History 100-40 mg Tablet] Magnesium Oxide [Mag-Ox] 400 mg PO DAILY@1700 01/06/18 11/04/18 History Polyethylene Glycol 3350 [Miralax] 17 gm PO DAILY PRN powd.pack 01/21/18 11/04/18 Rx Bisacodyl 10 mg RECTAL DAILY PRN 01/27/18 11/04/18 History Furosemide [Lasix] 80 mg PO BID@0600,1400 01/27/18 11/04/18 History NIFEdipine XL [Procardia XL] 30 mg PO DAILY@0800 01/27/18 11/04/18 History hydrALAZINE HCL [Apresoline] 100 mg PO TID@0600,1400,2100 01/27/18 11/04/18 History Calcium Acetate [Phoslo] 667 mg PO TID@0800,1200,1700 11/04/18 11/04/18 History Carvedilol [Coreg] 25 mg PO BID 11/04/18 11/04/18 History Ergocalciferol (Vitamin D2) 50,000 unit PO Q14D 11/04/18 11/04/18 History [Vitamin D2] Gabapentin [Neurontin] 200 mg PO BID 11/04/18 11/04/18 History HYDROcodone/APAP 7.5-325MG [[place] 1 tab PO Q8H PRN 11/04/18 11/04/18 History 7.5-325] INSULIN LISPRO (humaLOG) [humaLOG] 10 units SQ AC-LUNCH 11/04/18 11/04/18 History INSULIN LISPRO (humaLOG) [humaLOG] 12 units SQ AC-BRKFST 11/04/18 11/04/18 History INSULIN LISPRO (humaLOG) [humaLOG] 12 units SQ AC-SUPPER 11/04/18 11/04/18 History INSULIN LISPRO (humaLOG) [humaLOG] See Protocol SQ AC-TID 11/04/18 11/04/18 History Insulin Glargine [Lantus] 28 unit SQ ONCE 11/04/18 11/04/18 History Isosorbide Dinitrate 30 mg PO DAILY 11/04/18 11/04/18 History Lactulose 20 gm PO DAILY 11/04/18 11/04/18 History Patiromer Calcium Sorbitex 16.8 gm PO SUTUTH 11/04/18 11/04/18 History [[place]] guaiFENesin [guaiFENesin Oral 200 mg PO Q4H PRN 11/04/18 11/04/18 History Solution] hydrALAZINE HCL [Apresoline] 50 mg PO BID 11/04/18 11/04/18 History Allergies Allergy/AdvReac Type Severity Reaction Status Date / Time No Known Allergies Allergy Verified 11/04/18 09:06 Physical Exam Vitals: Vital Signs Temp Pulse Pulse Resp BP BP Pulse Ox 11/04/18 04:27 98.4 F 73 18 155/71 100 11/04/18 03:50 68 16 136/78 99 11/04/18 03:40 67 18 146/62 11/04/18 03:20 68 15 160/74 11/04/18 03:10 65 24 150/77 97 11/04/18 03:00 98.4 F 11/04/18 02:50 67 20 136/40 99 11/04/18 02:40 64 23 153/74 99 11/04/18 02:20 62 6 L 168/75 99 11/04/18 02:10 63 10 L 152/78 11/04/18 02:00 98.4 F 72 20 99 11/04/18 01:40 61 14 129/71 11/04/18 00:16 99.4 F 73 19 125/63 96 11/04/18 00:14 68 19 125/63 98 Intake and Output 11/03/18 11/03/18 11/04/18 14:59 22:59 06:59 Other: Voiding Method Urinal Weight 112.4 kg General Appearance: Alert, confused mild respiratory distress. Older than his age. Neck HEENT: Supple, no lymphadenopathy, no thyroid enlargement, no carotid bruits. Positive significant dry mucosa and thick secretion. Lungs: Decreased breath some bilaterally specially the bases with fine rhonchi positive crackles positive mild expiratory wheezes. Chest Wall: Decrease expansion with deep inspiration no tenderness and no deformity was found on exam, no costochondral pain or discomfort. Heart: Irregular rate and rhythm, S1, S2 positive S3 positive systolic murmur with mild tachycardia.. Back: Symmetric, no curvature, ROM normal, no CVA tenderness. Abdomen: Distended slight discomfort with decreased bowel sounds. Extremities: Worsening edema and vascular cellulitis in the right side than the left side with significant drainage and slight open area where his dialysis line was in the groin with mild posterior drainage from it. Pulses: 2+ and symmetric. Skin: Skin color, texture, tugor normal, no rashes or lesions. Neurologic: Alert severely confuse moving all his 4 extremities generalized weakness no focal deficit not been able to do gait exam. Results CBC & Chem 7: 11/04/18 06:17 11/04/18 06:17 Labs: Abnormal Lab Results - Last 24 Hours (Table) 11/04/18 11/04/18 11/04/18 Range/Units 01:32 01:32 01:32 RBC 3.93 L (4.30-5.90) m/uL Hgb 11.8 L (13.0-17.5) gm/dL Hct 37.9 L (39.0-53.0) % Plt Count 139 L (150-450) k/uL Lymphocytes # 0.5 L (1.0-4.8) k/uL VBG pCO2 (37-51) mmHg Sodium 135 L (137-145) mmol/L Potassium 6.4 H* (3.5-5.1) mmol/L Chloride 97 L (98-107) mmol/L BUN 39 H (9-20) mg/dL Creatinine 6.76 H (0.66-1.25) mg/dL Glucose 115 H (74-99) mg/dL POC Glucose (mg/dL) 112 H (75-99) mg/dL 11/04/18 Range/Units 02:23 RBC (4.30-5.90) m/uL Hgb (13.0-17.5) gm/dL Hct (39.0-53.0) % Plt Count (150-450) k/uL Lymphocytes # (1.0-4.8) k/uL VBG pCO2 57 H (37-51) mmHg Sodium (137-145) mmol/L Potassium (3.5-5.1) mmol/L Chloride (98-107) mmol/L BUN (9-20) mg/dL Creatinine (0.66-1.25) mg/dL Glucose (74-99) mg/dL POC Glucose (mg/dL) (75-99) mg/dL Thrombosis Risk Factor Assmnt - DVT/VTE Prophylaxis DVT/VTE Prophylaxis: Pharmacologic Prophylaxis ordered, Mechanical Prophylaxis ordered - Choose All That Apply Any of the Below Risk Factors Present?: Yes Each Factor Represents 1 point: Abnormal pulmonary function (COPD) Other Risk Factors: Yes Each Risk Factor Represents 2 Points: Age 61-74 years Other congenital or acquired thrombophilia - If yes, enter type in comment: No Thrombosis Risk Factor Assessment Total Risk Factor Score: 3 Thrombosis Risk Factor Assessment Level: Moderate Risk Assessment and Plan Plan: 1 sepsis: Most likely aspiration pneumonia along with line infection blood culture was done urine culture will be done as well, his chest x-ray showed opacity in the basal area in the left more than the right side most likely aspiration type with early pulmonary edema as well. Patient was started on Vanco and Zosyn will consult infectious disease awaiting for the culture, lactic acid was 1. 2 aspiration pneumonia: Patient will be on vancomycin and Zosyn smaller dose of levofloxacin can be added if Vanco. Eventually. Continue updraft treatment continue O2 try to keep his pulse ox above 90 percentile. 3 line sepsis: From the site of his dialysis catheter again will finalize a culture the meanwhile continue patient on vancomycin. 4 significant change mental status: CAT scan of the brain didn't show any abnormality this is mostly encephalopathy most likely's metabolic from severity of his infection temperature and such treat underlying disease. 5 severe hyperkalemia: Patient be going for dialysis in the meanwhile Kayexalate and sodium bicarbonate will be done. 6 end-stage renal disease: On hemodialysis 3 times a week hemodialysis will be done this morning urgent. 7 type 2 diabetes: Continue patient on NovoLog along with Lantus Accu-Chek with sliding scales coverage and be done. 8 severe cardiomyopathy: Most likely ischemic with very low ejection fraction patient hydralazine, furosemide, isosorbide to continue dialysis to clear more fluid retention. 9 mild pulmonary edema: From the severity of the sepsis the current problem continue diuretics and hemodialysis for now. 10 chronic hepatitis C: Patient has been treated with Mavyret. 11 severe gastroesophageal Flex syndrome: Has been on pantoprazole 40 mg daily. 12 urgent hypertension: Blood pressure still not well-controlled currently on Coreg and hydralazine still on nifedipine and if needed start patient on labetalol. 13 hyperlipidemia: On Lipitor 20 mg daily. 14 DVT prophylaxis: Patient will be on Venodyne boots and knee-high TERRY hose and heparin subcutaneous. CODE STATUS: Full code. Admit patient to inpatient status for more than 2 nights.
--- NOTE | 2018-11-04 13:12 | US ---
EXAMINATION TYPE: US venous doppler duplex LE RT DATE OF EXAM: 11/04/2018 12:46 PM COMPARISON: US 2018 CLINICAL HISTORY: edema. Right leg edema SIDE PERFORMED: Right TECHNIQUE: The lower extremity deep venous system is examined utilizing real time linear array sonog becky with graded compression, doppler sonography and color-flow sonography. VESSELS IMAGED: External Iliac Vein (EIV) Common Femoral Vein Deep Femoral Vein Greater Saphenous Vein * Femoral Vein Popliteal Vein Small Saphenous Vein * Proximal Calf Veins (* superficial vessels) Exam started at proximal femoral vein due to bandage covering groin area, EIV, CFV, GSV and deep fe m vein not imaged. There is normal flow, compressibility, vascular waveforms. Right Leg: Visualized portions appear negative for DVT Exam is limited. IMPRESSION: No evident deep venous thrombosis limited to the superficial femoral vein and popliteal v ein as described. Limited exam.
[2018-11-04] MEDS: CALCIUM ACETATE 667 MG CAP PO SCH ×2 (14:00→17:51)
[2018-11-04] MEDS: INSULIN ASPART (NovoLOG) 100 UNIT/ML VIAL SQ SCH ×2 (14:01→17:50)
--- NOTE | 2018-11-04 14:05 | P.CONS ---
History of Present Illness - Reason for Consult Consult date: 11/04/18 Sepsis - History of Present Illness This is a 73-year-old -[place] male long-term resident at [facility] in transferred with concerns regarding fever of 101 with increasing lethargy and concern for aspiration pneumonia or dialysis line infection. Patient has history of end-stage renal disease on hemodialysis Wednesdays and Fridays scheduled with AV fistula. Previous to that patient had a dialysis line in the right femoral area which was recently removed. Patient came into [facility] emergency center for evaluation. He has been afebrile, white count was 5.7, hemoglobin 11.8 and platelet count 139. BUN 39, creatinine 6.76, potassium 6.4, sodium 135, chloride 97 CO2 30, blood sugar was 115. Lactic acid was 1.0. Chest x-ray showed basilar opacities left greater than right maybe atelectasis although basilar infiltrates or other process cannot be excluded. Suspect mild pulmonary vascular congestion, stable enlarged cardiac silhouette instable cardiac device. CT brain showed no evidence of acute intracranial abnormality. Atrophy and chronic small vessel ischemic change present. The patient was started on cefepime and vancomycin and admitted to the selective care unit. Patient also was treated for the hyperkalemia with dextrose, insulin, calcium gluconate and Kayexalate. Patient is followed by nephrology with plan for hemodialysis today. Ultrasound of the right lower extremity was negative for DVT. Patient was seen by Dr. Le during an admission in February 2018 with concern for PermCath infection which was ruled out at that time with negative blood cultures. 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 liver biopsy on 10-18-13, Past Anesthesia/Blood Transfusion Reactions: No Reported Reaction Type of Cardiac Device: Permanent Pacemaker Device Placement Date:: 2013? pt unsure Past Psychological History: Bipolar, Depression Additional Psychological History / Comment(s): PT AT [facility] He uses a walker. BEFORE THAT HE WAS IN AN APT He does not drive-he used the bus to get places. has walker Smoking Status: Never smoker Past Alcohol Use History: Occasional Additional Past Alcohol Use History / Comment(s): Pt states he has an occasional beer but none since hospitalized 01/06/18 . Past Drug Use History: None Reported - Past Family History Mother Family Medical History: Hypertension Sister(s) Family Medical History: Cancer Father History Unknown: Yes Medications and Allergies Home Medications Medication Instructions Recorded Confirmed Type Nitroglycerin Sl Tabs [Nitrostat] 0.4 mg SUBLINGUAL Q5M PRN 11/28/13 11/04/18 History Docusate [Colace] 100 mg PO BID 06/07/15 11/04/18 History Pantoprazole [Protonix] 40 mg PO AC-BRKFST tablet. 09/23/17 11/04/18 Rx Atorvastatin [Lipitor] 20 mg PO HS@2100 01/06/18 11/04/18 History Glecaprevir/Pibrentasvir [Mavyret 3 tab PO DAILY@0800 01/06/18 11/04/18 History 100-40 mg Tablet] Magnesium Oxide [Mag-Ox] 400 mg PO DAILY@1700 01/06/18 11/04/18 History Polyethylene Glycol 3350 [Miralax] 17 gm PO DAILY PRN powd.pack 01/21/18 11/04/18 Rx Bisacodyl 10 mg RECTAL DAILY PRN 01/27/18 11/04/18 History Furosemide [Lasix] 80 mg PO BID@0600,1400 01/27/18 11/04/18 History NIFEdipine XL [Procardia XL] 30 mg PO DAILY@0800 01/27/18 11/04/18 History hydrALAZINE HCL [Apresoline] 100 mg PO TID@0600,1400,2100 01/27/18 11/04/18 History Calcium Acetate [Phoslo] 667 mg PO TID@0800,1200,1700 11/04/18 11/04/18 History Carvedilol [Coreg] 25 mg PO BID 11/04/18 11/04/18 History Ergocalciferol (Vitamin D2) 50,000 unit PO Q14D 11/04/18 11/04/18 History [Vitamin D2] Gabapentin [Neurontin] 200 mg PO BID 11/04/18 11/04/18 History HYDROcodone/APAP 7.5-325MG [[place] 1 tab PO Q8H PRN 11/04/18 11/04/18 History 7.5-325] INSULIN LISPRO (humaLOG) [humaLOG] 10 units SQ AC-LUNCH 11/04/18 11/04/18 History INSULIN LISPRO (humaLOG) [humaLOG] 12 units SQ AC-BRKFST 11/04/18 11/04/18 History INSULIN LISPRO (humaLOG) [humaLOG] 12 units SQ AC-SUPPER 11/04/18 11/04/18 History INSULIN LISPRO (humaLOG) [humaLOG] See Protocol SQ AC-TID 11/04/18 11/04/18 History Insulin Glargine [Lantus] 28 unit SQ ONCE 11/04/18 11/04/18 History Isosorbide Dinitrate 30 mg PO DAILY 11/04/18 11/04/18 History Lactulose 20 gm PO DAILY 11/04/18 11/04/18 History Patiromer Calcium Sorbitex 16.8 gm PO SUTUTH 11/04/18 11/04/18 History [V[place]] guaiFENesin [guaiFENesin Oral 200 mg PO Q4H PRN 11/04/18 11/04/18 History Solution] hydrALAZINE HCL [Apresoline] 50 mg PO BID 11/04/18 11/04/18 History Allergies Allergy/AdvReac Type Severity Reaction Status Date / Time No Known Allergies Allergy Verified 11/04/18 09:06 Physical Exam Vitals: Vital Signs Temp Pulse Pulse Resp BP BP Pulse Ox 11/04/18 12:37 76 11/04/18 12:23 72 11/04/18 09:00 80 11/04/18 08:50 80 11/04/18 08:15 100.6 F H 78 18 174/67 92 L 11/04/18 04:27 98.4 F 73 18 155/71 100 11/04/18 03:50 68 16 136/78 99 11/04/18 03:40 67 18 146/62 11/04/18 03:20 68 15 160/74 11/04/18 03:10 65 24 150/77 97 11/04/18 03:00 98.4 F 11/04/18 02:50 67 20 136/40 99 11/04/18 02:40 64 23 153/74 99 11/04/18 02:20 62 6 L 168/75 99 11/04/18 02:10 63 10 L 152/78 11/04/18 02:00 98.4 F 72 20 99 11/04/18 01:40 61 14 129/71 11/04/18 00:16 99.4 F 73 19 125/63 96 11/04/18 00:14 68 19 125/63 98 Intake and Output 11/03/18 11/04/18 11/04/18 22:59 06:59 14:59 Intake Total 500 180 Output Total 1 Balance 500 179 Intake: Intake, IV Titration 500 Amount Vancomycin 1,750 mg In 500 Sodium Chloride 0.9% 500 ml 500 ml @ 167 mls/hr IVPB ONCE STA Rx#: [id number] Oral 180 Output: Stool 1 Other: Voiding Method Urinal # Voids 0 # Bowel Movements 1 Weight 112.4 kg Gen: This is a 73-year-old -[place] male. He is resting in bed. He is confused and unable to answer questions or follow directions. HEENT: Head is atraumatic, normocephalic. Pupils equal, round. Sclerae is anicteric. NECK: Supple. No JVD. No lymphadenopathy. No thyromegaly. LUNGS: Decreased breath sounds bilaterally. No intercostal retractions. HEART: Regular rate and rhythm. Systolic murmur. ABDOMEN: Soft. Bowel sounds are present. No masses. No tenderness. EXTREMITIES: No pedal edema. Right groin has area with sutures from previous dialysis catheter. Follow older noted. NEUROLOGICAL: Patient is oriented x1. Generalized weakness. Results CBC & Chem 7: 11/04/18 06:17 11/04/18 06:17 Labs: Abnormal Lab Results - Last 24 Hours (Table) 11/04/18 11/04/18 11/04/18 Range/Units 01:32 01:32 01:32 RBC 3.93 L (4.30-5.90) m/uL Hgb 11.8 L (13.0-17.5) gm/dL Hct 37.9 L (39.0-53.0) % MCHC (31.0-37.0) g/dL Plt Count 139 L (150-450) k/uL Lymphocytes # 0.5 L (1.0-4.8) k/uL VBG pCO2 (37-51) mmHg Sodium 135 L (137-145) mmol/L Potassium 6.4 H* (3.5-5.1) mmol/L Chloride 97 L (98-107) mmol/L BUN 39 H (9-20) mg/dL Creatinine 6.76 H (0.66-1.25) mg/dL Glucose 115 H (74-99) mg/dL POC Glucose (mg/dL) 112 H (75-99) mg/dL 11/04/18 11/04/18 11/04/18 Range/Units 02:23 06:17 06:17 RBC 3.94 L (4.30-5.90) m/uL Hgb 11.8 L (13.0-17.5) gm/dL Hct 38.5 L (39.0-53.0) % MCHC 30.6 L (31.0-37.0) g/dL Plt Count 107 L (150-450) k/uL Lymphocytes # (1.0-4.8) k/uL VBG pCO2 57 H (37-51) mmHg Sodium 136 L (137-145) mmol/L Potassium 6.0 H (3.5-5.1) mmol/L Chloride (98-107) mmol/L BUN 43 H (9-20) mg/dL Creatinine 6.72 H (0.66-1.25) mg/dL Glucose (74-99) mg/dL POC Glucose (mg/dL) (75-99) mg/dL 11/04/18 Range/Units 11:55 RBC (4.30-5.90) m/uL Hgb (13.0-17.5) gm/dL Hct (39.0-53.0) % MCHC (31.0-37.0) g/dL Plt Count (150-450) k/uL Lymphocytes # (1.0-4.8) k/uL VBG pCO2 (37-51) mmHg Sodium (137-145) mmol/L Potassium (3.5-5.1) mmol/L Chloride (98-107) mmol/L BUN (9-20) mg/dL Creatinine (0.66-1.25) mg/dL Glucose (74-99) mg/dL POC Glucose (mg/dL) 144 H (75-99) mg/dL Assessment and Plan Plan: This is a 73-year-old man admitted to the hospital with signs of sepsis with fever and metabolic encephalopathy possibly related to aspiration pneumonia and there is concern for dialysis catheter infection that was recently removed from the right groin. Patient is currently on cefepime and vancomycin. Blood cultures status received. Patient had stool specimen sent to the lab for C. difficile testing the patient did receive Kayexalate. Continue supportive care. Further recommendations as patient progresses. The above dictated assessment and findings were discussed with Dr. Thapa. The impression and plan of care have been directed as dictated. Tiny Ahn nurse practitioner acting as scribe for Dr. Thapa.
[2018-11-04 16:50] LABS: Glucose,Whole Blood 127 mg/dL (75-99)
[2018-11-04] MEDS: MAGNESIUM OXIDE 400 MG TAB PO SCH (18:22)
[2018-11-04] MEDS: ATORVASTATIN 20 MG TAB PO SCH (20:30)
[2018-11-04 20:35] LABS: Glucose,Whole Blood 183 mg/dL (75-99)
[2018-11-04] MEDS: INSULIN DETEMIR (LEVEMIR) 100 UNIT/ML SYR SQ SCH (20:35)
--- NOTE | 2018-11-04 21:13 | P.CON ---
Consult Note - . Consult date: 11/04/18 Assessment/Plan:: This is a 73-year-old -Congolese male long-term resident at [facility] in transferred with concerns regarding fever of 101 with increasing lethargy and concern for aspiration pneumonia or dialysis line infection. Patient has h istory of end-stage renal disease on hemodialysis Wednesdays and Fridays scheduled with AV fistula. Previous to that patient had a dialysis line in the right femoral area which was recently removed. Patient came into [facility] emergency center for evaluation. He has been afebrile, white count was 5.7, hemoglobin 11.8 and platelet count 139. BUN 39, creatinine 6.76, potassium 6.4, sodium 135, chloride 97 CO2 30, blood sugar was 115. Lactic acid was 1.0. Chest x-ray showed basilar opacities left greater than right maybe atelectasis although basilar infiltrates or other process cannot be excluded. Suspect mild pulmonary vascular congestion, stable enlarged cardiac silhouette cardiac device. CT brain showed no evidence of acute intracranial abnormality. Atrophy and chronic small vessel ischemic change present. The patient was started on cefepime and vancomycin and admitted to the selective care unit. Patient also was treated for the hyperkalemia with dextrose, insulin, calcium gluconate and Kayexalate. Patient is followed by nephrology with plan for hemodialysis today. Ultrasound of the right lower extremity was negative for DVT. Patient was seen by ID during an admission in February 2018 with concern for PermCath infection which was ruled out at that time with negative blood cultures. Please see the consult note as dictated by nurse practitioner Tiny Romeohuber. 73 -year-old male who is a resident of [facility]. Upon asking more he states he is not able to relate where he resides. The patient however per the nursing staff is much more awake alert and interactive than he was earlier today before his dialysis session. He does look to the observer and answer simple questions with yes or no. He denies any discomfort. As noted the right groin has evidence of the recent removal of hemodialysis catheter and in that fold with some odor. However is not a large amount of drainage. The patient appears to have a metabolic and septic encephalopathy which is starting to improve with his hemodialysis improvement of his electrolytes initiation of antibiotic therapy. There is a concern for potential pneumonia. The patient does not seem to have significant respiratory distress. Chest x-ray is not convincing. At this time cultures are pending for further help direct course of antibiotic therapy as he improves. Currently cefepime and vancomycin are being utilized which we give us coverage for pseudomonas, gram-negative pathogens as well as staph aureus and MRSA. I agree with evaluation, assessment and plan is to Practitioner Mrs. Tiny Ahn.
[2018-11-05] MEDS: CEFEPIME 0.5 GM in SODIUM CHLORIDE 0.9% 50 ML IVPB SCH (02:41)
[2018-11-05] MEDS ORDERED: VANCOMYCIN 1,750 MG in SODIUM CHLORIDE 0.9% 500 ML 500 ML IVPB ONE (06:00)
[2018-11-05 06:20] LABS: Glucose,Whole Blood 194 mg/dL (75-99)
[2018-11-05] MEDS: FUROSEMIDE 80 MG TAB PO SCH ×2 (06:29→12:29)
[2018-11-05] MEDS: GABAPENTIN 100 MG CAP PO SCH ×3 (06:29→20:58)
[2018-11-05] MEDS: PANTOPRAZOLE 40 MG TABLET PO SCH (06:29)
[2018-11-05] MEDS: hydrALAZINE HCL 50 MG TAB PO SCH ×3 (06:29→20:59)
[2018-11-05] MEDS: CALCIUM ACETATE 667 MG CAP PO SCH ×3 (06:29→16:42)
[2018-11-05 07:20] LABS: Albumin 3.9 g/dL (3.5-5.0); Potassium 4.9 mmol/L (3.5-5.1); Total Bilirubin 0.3 mg/dL (0.2-1.3); Total Protein 7.3 g/dL (6.3-8.2)
[2018-11-05] MEDS: CARVEDILOL 12.5 MG TAB PO SCH ×2 (08:21→16:43)
[2018-11-05] MEDS: ISOSORBIDE MONONITRATE ER 60 MG TAB.ER.24H PO SCH (08:21)
[2018-11-05] MEDS: Glecaprevir/Pibrentasvir [Mavyret 100-40 Mg Tablet] PO SCH (08:22)
[2018-11-05] MEDS: methylPREDNISolone SOD SUCCI 125 MG/2 ML VIAL IV SCH (08:22)
[2018-11-05] MEDS: NIFEdipine XL 30 MG TAB.ER.24 PO SCH (08:22)
[2018-11-05] MEDS: IPRATROPIUM-ALBUTEROL 3 ML NEB INHALATION SCH ×4 (08:45→21:23)
--- NOTE | 2018-11-05 10:49 | P.PN ---
Subjective Patient is seen in follow-up for end-stage renal disease. He is maintained on hemodialysis on a Friday schedule. Tolerated hemodialysis well yesterday. He is more awake and alert today. Denies active chest pain or shortness of breath. Complains of a nonproductive cough. Vital signs are stable. General: The patient appeared well nourished and normally developed. HEENT: Head exam is unremarkable. Neck is without jugular venous distension. LUNGS: Breath sounds decreased. HEART: Rate and Rhythm are regular. First and second heart sounds normal. No murmurs, rubs or gallops. ABDOMEN: Abdominal exam reveals normal bowel sounds. Non-tender and non- distended. No evidence of peritonitis. EXTREMITITES: No clubbing, cyanosis, or edema. Objective - Vital Signs Vital signs: Vital Signs Temp 98.7 F 11/05/18 08:00 Pulse 68 11/05/18 09:00 Resp 16 11/05/18 08:00 BP 144/73 11/05/18 08:00 Pulse Ox 99 11/05/18 08:00 Intake & Output 11/04/18 11/05/18 11/05/18 18:59 06:59 18:59 Intake Total 480 210 120 Output Total 1633 Balance -1153 210 120 Weight 119 kg Intake: IV 160 0.9 160 Intake, IV Titration 50 Amount Cefepime 0.5 gm In Sodium 50 Chloride 0.9% 50 ml @ 100 mls/hr IVPB Q24H [facility] Rx#:[id number] Oral 180 120 Hemodialysis 300 Output: Stool 1 Hemodialysis 1632 Other: Voiding Method Urinal # Voids 0 0 # Bowel Movements 0 - Labs CBC & Chem 7: 11/04/18 06:17 11/05/18 06:40 Labs: Abnormal Lab Results - Last 24 Hours (Table) 11/04/18 11/04/18 11/04/18 Range/Units 11:55 16:39 17:05 BUN (9-20) mg/dL Creatinine (0.66-1.25) mg/dL Glucose (74-99) mg/dL POC Glucose (mg/dL) 144 H 127 H (75-99) mg/dL ALT (21-72) U/L Hep Bs Antibody Reactive H (Non-Reactive) Hep B Core Total Ab Reactive H (Non-Reactive) 11/04/18 11/05/18 11/05/18 Range/Units 20:33 06:19 06:40 BUN 39 H (9-20) mg/dL Creatinine 5.39 H (0.66-1.25) mg/dL Glucose 213 H (74-99) mg/dL POC Glucose (mg/dL) 183 H 194 H (75-99) mg/dL ALT 20 L (21-72) U/L Hep Bs Antibody (Non-Reactive) Hep B Core Total Ab (Non-Reactive) Microbiology - Last 24 Hours (Table) 11/04/18 02:13 Blood Culture - Preliminary Blood No Growth after 24 hours Assessment and Plan Plan: Assessment: 1. End-stage renal disease maintained on hemodialysis on a Friday schedule. 2. Hyperkalemia secondary to chronic kidney disease. Improved post dialysis. 3. Pneumonia maintained on antibiotics. Infectious disease following. 4. Hypertension with chronic kidney disease. Controlled. 5. Insulin-dependent diabetes mellitus. 6. Chronic kidney disease mineral bone disease maintained on PhosLo. Plan: Hemodialysis tomorrow. Renal diet. Monitor vancomycin levels. Target level 15.
[2018-11-05 11:19] LABS: Glucose,Whole Blood 214 mg/dL (75-99)
[2018-11-05] MEDS: INSULIN ASPART (NovoLOG) 100 UNIT/ML VIAL SQ SCH ×2 (12:29→16:43)
--- NOTE | 2018-11-05 15:03 | P.PN ---
Subjective Progress Note Date: 11/05/18 73-year-old male who of known for the last 2 years from [facility] who is a permanent resident since his end-stage renal disease on hemodialysis is known to have history of COPD atherosclerotic heart disease severe ischemic cardiopathy with ejection fraction of 20 percentile who had fistula graft of the right forearm done Dr. Dhillon few weeks ago and had dialysis line in the right femoral area was kept on for over 6 months was taking out recently. In the last few days patient has been having significant problem with blood pressure not been well controlled and running in the high 160-200, medication were adjusted. Patient developed to have worsening dyspnea and shortness of breath and significant altered mental status with the blood pressure being high patient was quite bit distress continue to have significant hypoxia ended up being sent from [facility] to the emergency department at [facility] where was evaluated found to have temperature of 102 mildly elevated white blood cell, patient clinically has aspiration pneumonia also has right groin worsening drainage from the dialysis line was taking out recently as a line infection. Patient was giving 1 g of Vanco started on Zosyn will be admitted to the hospital. Also his potassium was about 6 was giving bicarbonate and call nephrology patient will require to go for hemodialysis quickly today his chest x-ray revealed beside aspiration pneumonia fluid overload worsening in the right than the left side. 11/05: Patient has been seen by Dr. Thapa with recommendations to continue vancomycin and cefepime to cover for pseudomonas. Blood culture showing no growth at 24 hours. No urine culture has been obtained as patient does not make urine. Blood pressure this morning is 144/74, pulse ox 99% on 4 L, he has been afebrile, heart rate in the 60s. Temperature max of 100.6 was obtained yesterday morning at 8 AM. BUN 39 and creatinine 5.39, blood sugars running 127-194. Cellulitis to the right groin is improving. Patient will be transferred to MedSurg floor today. Solu-Medrol was started by the ER which will be discontinued. Nephrology has patient scheduled for hemodialysis tomorrow. Patient's mental status is much improved from yesterday. To be back to his baseline. Review of Systems CONSTITUTIONAL: Elderly, overweight looks in no respiratory distress having mild cough. EYES: No icterus sclerae, no conjunctivitis. EARS, NOSE, MOUTH, THROAT, and FACE: No sore throat, lymphadenopathy, carotid bruits or deformity. RESPIRATORY: Positive shortness of breath cough wheezes. CARDIOVASCULAR: Positive palpitation with chest tightness and fluid overload with significantly elevated blood pressure. GASTROINTESTINAL: No Abd pain, Nausea or vomiting, no Diarrhea or constipation, No GI Bleed, no distention or masses. GENITOURINARY: On hemodialysis, still making limited amount of urine. INTEGUMENT/BREAST: Negative for any muscular injury with mild osteoarthritis.. HEMATOLOGIC/LYMPHATIC: Negative for bleed or purpura. MUSCULOSKELTAL: Generalized arthralgia and myalgia patient still have lower back pain and had significant problem with his mobility. NEURLOGICAL: Confused with significant altered mental status no blurred vision not been able to do and a gait exam. BEHAVIORAL/PSYCH: Mild depression. ENDOCRINE: Negative. Objective - Vital Signs Vital signs: Vital Signs Temp 98.7 F 11/05/18 08:00 Pulse 68 11/05/18 09:00 Resp 16 11/05/18 08:00 BP 144/73 11/05/18 08:00 Pulse Ox 99 11/05/18 08:00 Intake & Output 11/04/18 11/05/18 11/05/18 18:59 06:59 18:59 Intake Total 480 210 120 Output Total 1633 Balance -1153 210 120 Weight 119 kg Intake: IV 160 0.9 160 Intake, IV Titration 50 Amount Cefepime 0.5 gm In Sodium 50 Chloride 0.9% 50 ml @ 100 mls/hr IVPB Q24H [facility] Rx#:[id number] Oral 180 120 Hemodialysis 300 Output: Stool 1 Hemodialysis 1632 Other: Voiding Method Urinal # Voids 0 0 # Bowel Movements 0 - Exam General Appearance: Alert, no respiratory distress. Older than his age. Neck HEENT: Supple, no lymphadenopathy, no thyroid enlargement, no carotid bruits. Positive significant dry mucosa and thick secretion. Lungs: Decreased breath some bilaterally specially the bases with fine rhonchi positive crackles positive mild expiratory wheezes. Chest Wall: Decrease expansion with deep inspiration no tenderness and no deformity was found on exam, no costochondral pain or discomfort. Heart: Irregular rate and rhythm, S1, S2 positive S3 positive systolic murmur with mild tachycardia.. Back: Symmetric, no curvature, ROM normal, no CVA tenderness. Abdomen: Distended slight discomfort with decreased bowel sounds. Extremities: Worsening edema and vascular cellulitis in the right side than the left side with significant drainage and slight open area where his dialysis line was in the groin with mild posterior drainage from it. Pulses: 2+ and symmetric. Skin: Skin color, texture, tugor normal, no rashes or lesions. Neurologic: Alert moving all his 4 extremities generalized weakness no focal deficit not been able to do gait exam. - Labs CBC & Chem 7: 11/04/18 06:17 11/05/18 06:40 Labs: Abnormal Lab Results - Last 24 Hours (Table) 11/04/18 11/04/18 11/04/18 Range/Units 11:55 16:39 17:05 BUN (9-20) mg/dL Creatinine (0.66-1.25) mg/dL Glucose (74-99) mg/dL POC Glucose (mg/dL) 144 H 127 H (75-99) mg/dL ALT (21-72) U/L Hep Bs Antibody Reactive H (Non-Reactive) Hep B Core Total Ab Reactive H (Non-Reactive) 11/04/18 11/05/18 11/05/18 Range/Units 20:33 06:19 06:40 BUN 39 H (9-20) mg/dL Creatinine 5.39 H (0.66-1.25) mg/dL Glucose 213 H (74-99) mg/dL POC Glucose (mg/dL) 183 H 194 H (75-99) mg/dL ALT 20 L (21-72) U/L Hep Bs Antibody (Non-Reactive) Hep B Core Total Ab (Non-Reactive) Microbiology - Last 24 Hours (Table) 11/04/18 02:13 Blood Culture - Preliminary Blood No Growth after 24 hours Assessment and Plan Plan: 1 sepsis: Most likely aspiration pneumonia and/or cellulitis of the right groin had previous dialysis catheter site. Consult with Dr. Thapa appreciated. Continue cefepime and vancomycin. Blood culture showing no growth at 24 hours. Urine cultures not been obtained. 2 aspiration pneumonia: Patient will be on vancomycin and cefepime. Eventually. Continue updraft treatment continue O2 try to keep his pulse ox above 90 percentile. 3 cellulitis right groin at site of removal of dialysis catheter. Consult with Dr. Thapa appreciated. Continue cefepime and vancomycin. 4 septic and metabolic encephalopathy, improving: CAT scan of the brain didn't show any abnormality this is mostly encephalopathy most likely's metabolic from severity of his infection temperature and such treat underlying disease. 5 severe hyperkalemia: Patient be going for dialysis in the meanwhile Kayexalate and sodium bicarbonate will be done. 6 end-stage renal disease: On hemodialysis 3 times a week hemodialysis will be done this morning urgent. Nephrology consult appreciated. 7 type 2 diabetes: Continue patient on NovoLog along with Lantus Accu-Chek with sliding scales coverage and be done. 8 severe cardiomyopathy: Most likely ischemic with very low ejection fraction patient hydralazine, furosemide, isosorbide to continue dialysis to clear more fluid retention. 9 mild pulmonary edema: From the severity of the sepsis the current problem continue diuretics and hemodialysis for now. 10 chronic hepatitis C: Patient has been treated with Mavyret. 11 severe gastroesophageal Flex syndrome: Has been on pantoprazole 40 mg daily. 12 urgent hypertension: Blood pressure still not well-controlled currently on Coreg and hydralazine still on nifedipine and if needed start patient on labetal ol. 13 hyperlipidemia: On Lipitor 20 mg daily. 14 DVT prophylaxis: Patient will be on Venodyne boots and knee-high TERRY hose and heparin subcutaneous. CODE STATUS: Full code. Discharge plan: Return to [facility] Impression and plan of care have been directed as dictated by the signing physician. Tiny Ahn nurse practitioner acting as scribe for signing physician.
[2018-11-05 16:23] LABS: Glucose,Whole Blood 260 mg/dL (75-99)
[2018-11-05] MEDS: MAGNESIUM OXIDE 400 MG TAB PO SCH (17:24)
[2018-11-05 20:41] LABS: Glucose,Whole Blood 235 mg/dL (75-99)
[2018-11-05] MEDS: ATORVASTATIN 20 MG TAB PO SCH (20:59)
[2018-11-05] MEDS: INSULIN DETEMIR (LEVEMIR) 100 UNIT/ML SYR SQ SCH (20:59)
--- NOTE | 2018-11-05 23:03 | P.PN ---
Subjective Progress Note Date: 11/05/18 This is a 73-year-old -Mosoth[place] male long-term resident at [facility] in transferred with concerns regarding fever of 101 with increasing lethargy and concern for aspiration pneumonia or dialysis line infection. Patient has history of end-stage renal disease on hemodialysis Wednesdays and Fridays scheduled with AV fistula. Previous to that patient had a dialysis line in the right femoral area which was recently removed. Patient came into [facility] emergency center for evaluation. He has been afebrile, white count was 5.7, hemoglobin 11.8 and platelet count 139. BUN 39, creatinine 6.76, potassium 6.4, sodium 135, chloride 97 CO2 30, blood sugar was 115. Lactic acid was 1.0. Chest x-ray showed basilar opacities left greater than right maybe atelectasis although basilar infiltrates or other process cannot be excluded. Suspect mild pulmonary vascular congestion, stable enlarged cardiac silhouette instable cardiac device. CT brain showed no evidence of acute intracranial abnormality. Atrophy and chronic small vessel ischemic change present. The patient was started on cefepime and vancomycin and admitted to the selective care unit. Patient also was treated for the hyperkalemia with dextrose, insulin, calcium gluconate and Kayexalate. Patient is followed by nephrology with plan for hemodialysis today. Ultrasound of the right lower extremity was negative for DVT. Patient was seen by ID during an admission in February 2018 with concern for PermCath infection which was ruled out at that time with negative blood cultures. 11/05/2018 patient Little change of his status. Is not having any new discomfort. Right groin without worsening pain Objective - Vital Signs Vital signs: Vital Signs Temp 98.7 F 11/05/18 08:00 Pulse 80 11/05/18 16:30 Resp 16 11/05/18 15:39 BP 129/63 11/05/18 12:00 Pulse Ox 96 11/05/18 12:00 Intake & Output 11/05/18 11/05/18 11/06/18 06:59 18:59 06:59 Intake Total 210 440 60 Output Total 1 Balance 210 439 60 Weight 119 kg Intake: IV 160 60 0.9 160 60 Intake, IV Titration 50 Amount Cefepime 0.5 gm In Sodium 50 Chloride 0.9% 50 ml @ 100 mls/hr IVPB Q24H [facility] Rx#:[id number] Oral 440 Output: Urine 0 Stool 1 Other: Voiding Method Urinal Urinal Urinal # Voids 0 0 # Bowel Movements 0 - Exam Gen: This is a 73-year-old -Mosotho male. He is resting in bed. He is confused and unable to answer questions or follow directions. HEENT: Head is atraumatic, normocephalic. Pupils equal, round. Sclerae is anicteric. NECK: Supple. No JVD. No lymphadenopathy. No thyromegaly. LUNGS: Decreased breath sounds bilaterally. No intercostal retractions. HEART: Regular rate and rhythm. Systolic murmur. ABDOMEN: Soft. Bowel sounds are present. No masses. No tenderness. EXTREMITIES: No pedal edema. Right groin has area with sutures from previous dialysis catheter. Follow older noted. NEUROLOGICAL: Patient is oriented x1. Generalized weakness. - Labs CBC & Chem 7: 11/04/18 06:17 11/05/18 06:40 Labs: Abnormal Lab Results - Last 24 Hours (Table) 11/04/18 11/05/18 11/05/18 Range/Units 17:05 06:19 06:40 BUN 39 H (9-20) mg/dL Creatinine 5.39 H (0.66-1.25) mg/dL Glucose 213 H (74-99) mg/dL POC Glucose (mg/dL) 194 H (75-99) mg/dL ALT 20 L (21-72) U/L Hep Bs Antibody Reactive H (Non-Reactive) Hep B Core Total Ab Reactive H (Non-Reactive) 11/05/18 11/05/18 11/05/18 Range/Units 11:18 16:21 20:28 BUN (9-20) mg/dL Creatinine (0.66-1.25) mg/dL Glucose (74-99) mg/dL POC Glucose (mg/dL) 214 H 260 H 235 H (75-99) mg/dL ALT (21-72) U/L Hep Bs Antibody (Non-Reactive) Hep B Core Total Ab (Non-Reactive) Microbiology - Last 24 Hours (Table) 11/04/18 02:13 Blood Culture - Preliminary Blood No Growth after 24 hours Laboratory Results WBC 8.4 k/uL (3.8-10.6) 11/04/18 06:17 RBC 3.94 m/uL (4.30-5.90) L 11/04/18 06:17 Hgb 11.8 gm/dL (13.0-17.5) L 11/04/18 06:17 Hct 38.5 % (39.0-53.0) L 11/04/18 06:17 MCV 97.9 fL (80.0-100.0) 11/04/18 06:17 MCH 30.0 pg (25.0-35.0) 11/04/18 06:17 MCHC 30.6 g/dL (31.0-37.0) L 11/04/18 06:17 RDW 14.0 % (11.5-15.5) 11/04/18 06:17 Plt Count 107 k/uL (150-450) L 11/04/18 06:17 Neutrophils % 76 % 11/04/18 01:32 Neutrophils % (Manual) 74 % 11/04/18 06:17 Lymphocytes % 9 % 11/04/18 01:32 Lymphocytes % (Manual) 15 % 11/04/18 06:17 Monocytes % 7 % 11/04/18 01:32 Monocytes % (Manual) 9 % 11/04/18 06:17 Eosinophils % 5 % 11/04/18 01:32 Eosinophils % (Manual) 2 % 11/04/18 06:17 Basophils % 0 % 11/04/18 01:32 Neutrophils # 4.3 k/uL (1.3-7.7) 11/04/18 01:32 Neutrophils # (Manual) 6.22 k/uL (1.3-7.7) 11/04/18 06:17 Lymphocytes # 0.5 k/uL (1.0-4.8) L 11/04/18 01:32 Lymphocytes # (Manual) 1.26 k/uL (1.0-4.8) 11/04/18 06:17 Monocytes # 0.4 k/uL (0-1.0) 11/04/18 01:32 Monocytes # (Manual) 0.76 k/uL (0-1.0) 11/04/18 06:17 Eosinophils # 0.3 k/uL (0-0.7) 11/04/18 01:32 Eosinophils # (Manual) 0.17 k/uL (0-0.7) 11/04/18 06:17 Basophils # 0.0 k/uL (0-0.2) 11/04/18 01:32 Nucleated RBCs 0 /100 WBC (0-0) 11/04/18 06:17 Manual Slide Review Performed 11/04/18 06:17 Large Platelets Present 11/04/18 06:17 Hypochromasia Marked 11/04/18 06:17 PT 10.3 sec (9.0-12.0) 11/04/18 01:32 INR 1.0 (<1.2) 11/04/18 01:32 APTT 27.0 sec (22.0-30.0) 11/04/18 01:32 VBG pH 7.31 (7.31-7.41) 11/04/18 02:23 VBG pCO2 57 mmHg (37-51) H 11/04/18 02:23 VBG HCO3 28 mmol/L (24-28) 11/04/18 02:23 Sodium 138 mmol/L (137-145) 11/05/18 06:40 Potassium 4.9 mmol/L (3.5-5.1) 11/05/18 06:40 Chloride 98 mmol/L (98-107) 11/05/18 06:40 Carbon Dioxide 28 mmol/L (22-30) 11/05/18 06:40 Anion Gap 12 mmol/L 11/05/18 06:40 BUN 39 mg/dL (9-20) H 11/05/18 06:40 Creatinine 5.39 mg/dL (0.66-1.25) H 11/05/18 06:40 Est GFR (CKD-EPI)AfAm 11 (>60 ml/min/1.73 sqM) 11/05/18 06:40 Est GFR (CKD-EPI)NonAf 10 (>60 ml/min/1.73 sqM) 11/05/18 06:40 Glucose 213 mg/dL (74-99) H 11/05/18 06:40 POC Glucose (mg/dL) 235 mg/dL (75-99) H 11/05/18 20:28 POC Glu Director Perioperative ID Pretty Lockhart 11/05/18 20:28 Plasma Lactic Acid Fermin 1.0 mmol/L (0.7-2.0) 11/04/18 01:32 Calcium 9.0 mg/dL (8.4-10.2) 11/05/18 06:40 Phosphorus 3.4 mg/dL (2.5-4.5) 11/04/18 06:17 Magnesium 1.8 mg/dL (1.6-2.3) 11/04/18 06:17 Total Bilirubin 0.3 mg/dL (0.2-1.3) 11/05/18 06:40 AST 20 U/L (17-59) 11/05/18 06:40 ALT 20 U/L (21-72) L 11/05/18 06:40 Alkaline Phosphatase 90 U/L (38-126) 11/05/18 06:40 Creatine Kinase 65 U/L (55-170) 11/04/18 01:32 Total Protein 7.3 g/dL (6.3-8.2) 11/05/18 06:40 Albumin 3.9 g/dL (3.5-5.0) 11/05/18 06:40 C. difficile (EIA) Intrp Negative (Negative) 11/04/18 13:00 Hep Bs Antigen Non-Reactive (Non-Reactive) 11/04/18 17:05 Hep Bs Antibody Reactive (Non-Reactive) H 11/04/18 17:05 Hep Bs Antibody, Quant 1000.0 mIU/mL 11/04/18 17:05 Hep B Core Total Ab Reactive (Non-Reactive) 11/04/18 17:05 Microbiology 11/04/18 02:13 Blood Blood Culture - Preliminary No Growth after 24 hours Assessment and Plan (1) Altered mental status Narrative/Plan: 73 -year-old male who is a resident of [facility]. Upon asking more he states he is not able to relate where he resides. The patient however per the nursing staff is much more awake alert and interactive than he was earlier today before his dialysis session. He does look to the observer and answer simple questions with yes or no. He denies any discomfort. As noted the right groin has evidence of the recent removal of hemodialysis catheter and in that fold with some odor. However is not a large amount of drainage. The patient appears to have a metabolic and septic encephalopathy which is starting to improve with his hemodialysis improvement of his electrolytes initiation of antibiotic therapy. There is a concern for potential pneumonia. The patient does not seem to have significant respiratory distress. Chest x-ray is not convincing. At this time cultures are pending for further help direct course of antibiotic therapy as he improves. Currently cefepime and vancomycin are being utilized which we give us coverage for pseudomonas, gram-negative pathogens as well as staph aureus and MRSA 11/05/2018 patient is slightly brighter and his affect. Looks forward to returning to his extended care facility residence. Does not appear to have any significant infection of the right groin area. Concerns pneumonia. Blood cultures are in process to further help direct antibiotic therapy. Current Visit: Yes Status: Acute Code(s): R41.82 - ALTERED MENTAL STATUS, UNSPECIFIED SNOMED Code(s): 389611106 (2) ESRD (end stage renal disease) on dialysis Current Visit: Yes Status: Acute Code(s): N18.6 - END STAGE RENAL DISEASE; Z99.2 - DEPENDENCE ON RENAL DIALYSIS SNOMED Code(s): 412131903
[2018-11-06] MEDS: CEFEPIME 0.5 GM in SODIUM CHLORIDE 0.9% 50 ML IVPB SCH (02:43)
[2018-11-06] MEDS: GABAPENTIN 100 MG CAP PO SCH ×2 (05:25→14:02)
[2018-11-06] MEDS: FUROSEMIDE 80 MG TAB PO SCH (05:25)
[2018-11-06] MEDS: hydrALAZINE HCL 50 MG TAB PO SCH ×2 (05:25→14:03)
[2018-11-06 07:38] LABS: Glucose,Whole Blood 96 mg/dL (75-99)
--- NOTE | 2018-11-06 09:14 | P.PN ---
Subjective Patient is seen in follow-up for end-stage renal disease. He is maintained on hemodialysis on a Friday schedule. He is more awake and alert today. He's been working with physical therapy. Denies active chest pain or shortness of breath. Complains of a nonproductive cough. Vital signs are stable. General: The patient appeared well nourished and normally developed. HEENT: Head exam is unremarkable. Neck is without jugular venous distension. LUNGS: Breath sounds decreased. HEART: Rate and Rhythm are regular. First and second heart sounds normal. No murmurs, rubs or gallops. ABDOMEN: Abdominal exam reveals normal bowel sounds. Non-tender and non- distended. No evidence of peritonitis. EXTREMITITES: No clubbing, cyanosis, or edema. Objective - Vital Signs Vital signs: Vital Signs Temp 98.2 F 11/06/18 07:00 Pulse 66 11/06/18 07:00 Resp 18 11/06/18 07:00 BP 121/63 11/06/18 07:00 Pulse Ox 96 11/06/18 07:00 Intake & Output 11/05/18 11/06/18 11/06/18 18:59 06:59 18:59 Intake Total 440 410 Output Total 1 Balance 439 410 Intake: IV 60 0.9 60 Intake, IV Titration 50 Amount Cefepime 0.5 gm In Sodium 50 Chloride 0.9% 50 ml @ 100 mls/hr IVPB Q24H [facility] Rx#:[id number] Oral 440 300 Output: Urine 0 Stool 1 Other: Voiding Method Urinal Urinal # Voids 0 0 # Bowel Movements 0 1 1 - Labs CBC & Chem 7: 11/04/18 06:17 11/05/18 06:40 Labs: Abnormal Lab Results - Last 24 Hours (Table) 11/05/18 11/05/18 11/05/18 Range/Units 11:18 16:21 20:28 POC Glucose (mg/dL) 214 H 260 H 235 H (75-99) mg/dL Microbiology - Last 24 Hours (Table) 11/04/18 02:13 Blood Culture - Preliminary Blood No Growth after 48 hours Assessment and Plan Plan: Assessment: 1. End-stage renal disease maintained on hemodialysis on a Friday schedule. 2. Hyperkalemia secondary to chronic kidney disease. Improved post dialysis. 3. Pneumonia maintained on antibiotics. Infectious disease following. 4. Hypertension with chronic kidney disease. Controlled. 5. Insulin-dependent diabetes mellitus. 6. Chronic kidney disease mineral bone disease maintained on PhosLo. Plan: Hemodialysis today. Renal diet. Monitor vancomycin levels. Target level 15.
[2018-11-06 09:23] LABS: HCT 35.2 % (39.0-53.0); HGB 10.8 gm/dL (13.0-17.5); Hypochromasia Moderate; MCH 29.8 pg (25.0-35.0); MCHC 30.7 g/dL (31.0-37.0); MCV 97.1 fL (80.0-100.0); Mean Platelet Volume 9.6; Platelet Count 120 k/uL (150-450); RBC 3.63 m/uL (4.30-5.90); RDW 14.1 % (11.5-15.5); WBC 7.4 k/uL (3.8-10.6)
[2018-11-06] MEDS: Glecaprevir/Pibrentasvir [Mavyret 100-40 Mg Tablet] PO SCH (09:31)
[2018-11-06] MEDS: CALCIUM ACETATE 667 MG CAP PO SCH ×2 (09:31→12:53)
[2018-11-06 09:32] LABS: Albumin 3.9 g/dL (3.5-5.0); Calcium 8.8 mg/dL (8.4-10.2); Potassium 4.4 mmol/L (3.5-5.1); Total Bilirubin 0.4 mg/dL (0.2-1.3); Total Protein 7.2 g/dL (6.3-8.2)
[2018-11-06] MEDS: PANTOPRAZOLE 40 MG TABLET PO SCH (09:33)
[2018-11-06 09:37] LABS: Vancomycin,Random 25.6 ug/mL
[2018-11-06] MEDS: IPRATROPIUM-ALBUTEROL 3 ML NEB INHALATION SCH ×2 (09:37→13:24)
[2018-11-06 10:11] VITALS: TEMP 97.6
[2018-11-06 11:50] LABS: Glucose,Whole Blood 119 mg/dL (75-99)
[2018-11-06 12:49] VITALS: RESP 12
[2018-11-06] MEDS: INSULIN ASPART (NovoLOG) 100 UNIT/ML VIAL SQ SCH (12:52)
[2018-11-06 13:49] VITALS: BP 143/74; PULSE 75
--- NOTE | 2018-11-06 13:51 | P.DS ---
Providers Date of admission: 11/04/18 03:31 Attending physician: Joel York Consults: 11/04/18 03:32 Consult Physician Routine Consulting Provider: Marilu Rojas Consult Reason/Comments: Hyperkalemia, end-stage renal disease Do you want consulting provider notified?: Yes 11/04/18 05:43 Consult Physician Routine Consulting Provider: Marilu Rojas Consult Reason/Comments: ESRD Do you want consulting provider notified?: Yes 11/04/18 05:44 Consult Physician Routine Consulting Provider: Joel Tahpa Consult Reason/Comments: Sepsis Do you want consulting provider notified?: Yes Primary care physician: [facility] Course: 73-year-old male who of known for the last 2 years from [facility] who is a permanent resident since his end-stage renal disease on hemodialysis is known to have history of COPD atherosclerotic heart disease severe ischemic cardiopathy with ejection fraction of 20 percentile who had fistula graft of the right forearm done Dr. Dhillon few weeks ago and had dialysis line in the right femoral area was kept on for over 6 months was taking out recently. In the last few days patient has been having significant problem with blood pressure not been well controlled and running in the high 160-200, medication were adjusted. Patient developed to have worsening dyspnea and shortness of breath and significant altered mental status with the blood pressure being high patient was quite bit distress continue to have significant hypoxia ended up being sent from [facility] to the emergency department at [facility] where was evaluated found to have temperature of 102 mildly elevated white blood cell, patient clinically has aspiration pneumonia also has right groin worsening drainage from the dialysis line was taking out recently as a line infection. Patient was giving 1 g of Vanco started on Zosyn will be admitted to the hospital. Also his potassium was about 6 was giving bicarbonate and call nephrology patient will require to go for hemodialysis quickly today his chest x-ray revealed beside aspiration pneumonia fluid overload worsening in the right than the left side. 11/05: Patient has been seen by Dr. Thapa with recommendations to continue vancomycin and cefepime to cover for pseudomonas. Blood culture showing no growth at 24 hours. No urine culture has been obtained as patient does not make urine. Blood pressure this morning is 144/74, pulse ox 99% on 4 L, he has been afebrile, heart rate in the 60s. Temperature max of 100.6 was obtained yesterday morning at 8 AM. BUN 39 and creatinine 5.39, blood sugars running 127-194. Cellulitis to the right groin is improving. Patient will be transferred to [facility] floor today. Solu-Medrol was started by the ER which will be discontinued. Nephrology has patient scheduled for hemodialysis tomorrow. Patient's mental status is much improved from yesterday. To be back to his baseline. - Exam General Appearance: Alert, no respiratory distress. Older than his age. Neck HEENT: Supple, no lymphadenopathy, no thyroid enlargement, no carotid bruits. Positive significant dry mucosa and thick secretion. Lungs: Decreased breath some bilaterally specially the bases with fine rhonchi positive crackles positive mild expiratory wheezes. Chest Wall: Decrease expansion with deep inspiration no tenderness and no deformity was found on exam, no costochondral pain or discomfort. Heart: Irregular rate and rhythm, S1, S2 positive S3 positive systolic murmur with mild tachycardia.. Back: Symmetric, no curvature, ROM normal, no CVA tenderness. Abdomen: Distended slight discomfort with decreased bowel sounds. Extremities: Worsening edema and vascular cellulitis in the right side than the left side with significant drainage and slight open area where his dialysis line was in the groin with mild posterior drainage from it. Pulses: 2+ and symmetric. Skin: Skin color, texture, tugor normal, no rashes or lesions. Neurologic: Alert moving all his 4 extremities generalized weakness no focal deficit not been able to do gait exam. Assessment and Plan Plan: 1 sepsis: Most likely aspiration pneumonia and/or cellulitis of the right groin had previous dialysis catheter site. Consult with Dr. Thapa appreciated. Continue cefepime and vancomycin. Blood culture showing no growth at 24 hours. Urine cultures not been obtained. 2 aspiration pneumonia: Patient will be on vancomycin and cefepime. Eventually. Continue updraft treatment continue O2 try to keep his pulse ox above 90 percentile. With switch patient to Levaquin 250 mg daily to complete a course of 7 days. 3 cellulitis right groin at site of removal of dialysis catheter. Consult with Dr. Thapa appreciated. Continue cefepime and vancomycin. 4 septic and metabolic encephalopathy, improving: CAT scan of the brain didn't show any abnormality this is mostly encephalopathy most likely's metabolic from severity of his infection temperature and such treat underlying disease. 5 severe hyperkalemia: Patient be going for dialysis in the meanwhile Kayexalate and sodium bicarbonate will be done. 6 end-stage renal disease: On hemodialysis 3 times a week hemodialysis will be done this morning urgent. Nephrology consult appreciated. 7 type 2 diabetes: Continue patient on NovoLog along with Lantus Accu-Chek with sliding scales coverage and be done. 8 severe cardiomyopathy: Most likely ischemic with very low ejection fraction patient hydralazine, furosemide, isosorbide to continue dialysis to clear more fluid retention. 9 mild pulmonary edema: From the severity of the sepsis the current problem continue diuretics and hemodialysis for now. 10 chronic hepatitis C: Patient has been treated with Mavyret. 11 severe gastroesophageal Flex syndrome: Has been on pantoprazole 40 mg daily. 12 urgent hypertension: Blood pressure still not well-controlled currently on Coreg and hydralazine still on nifedipine and if needed start patient on labetalol. 13 hyperlipidemia: On Lipitor 20 mg daily. Discharge planning: Patient is doing very well and was seen infectious disease, culture between urine and blood came back negative, the site of the right groin looks much better with no more pus or drainage. Cephalosporin was stopped and patient was started on Levaquin and he'll be discharged back to [facility] today on Levaquin for 7 more days for severe bronchitis pneumonitis. Blood pressure is well-controlled patient will be on hydralazine 100 mg 3 times a day and back on Procardia still on Coreg 25 g twice a day as controlling his blood pressure much better. Patient Condition at Discharge: Stable Plan - Discharge Summary Discharge Rx Participant: No New Discharge Prescriptions: New Ipratropium-Albuterol Nebulize [Duoneb 0.5 mg-3 mg/3 ml Soln] 3 ml INHALATION RT-QID ampul.neb Gabapentin [Neurontin] 100 mg PO TID@0600,1400,2100 #12 cap Levofloxacin [Levaquin] 250 mg PO DAILY #5 tab Continue Nitroglycerin Sl Tabs [Nitrostat] 0.4 mg SUBLINGUAL Q5M PRN PRN Reason: Angina Docusate [Colace] 100 mg PO BID Pantoprazole [Protonix] 40 mg PO AC-BRKFST tablet. Magnesium Oxide [Mag-Ox] 400 mg PO DAILY@1700 Atorvastatin [Lipitor] 20 mg PO HS@2100 Glecaprevir/Pibrentasvir [Mavyret 100-40 mg Tablet] 3 tab PO DAILY@0800 Polyethylene Glycol 3350 [Miralax] 17 gm PO DAILY PRN powd.pack PRN Reason: Constipation NIFEdipine XL [Procardia XL] 30 mg PO DAILY@0800 hydrALAZINE HCL [Apresoline] 100 mg PO TID@0600,1400,2100 Furosemide [Lasix] 80 mg PO BID@0600,1400 Bisacodyl 10 mg RECTAL DAILY PRN PRN Reason: Constipation Calcium Acetate [PhosLo] 667 mg PO TID@0800,1200,1700 guaiFENesin [guaiFENesin Oral Solution] 200 mg PO Q4H PRN PRN Reason: Cough Carvedilol [Coreg] 25 mg PO BID Ergocalciferol (Vitamin D2) [Vitamin D2] 50,000 unit PO Q14D INSULIN LISPRO (humaLOG) [humaLOG] See Protocol SQ AC-TID INSULIN LISPRO (humaLOG) [humaLOG] 12 units SQ AC-SUPPER INSULIN LISPRO (humaLOG) [humaLOG] 10 units SQ AC-LUNCH INSULIN LISPRO (humaLOG) [humaLOG] 12 units SQ AC-BRKFST Isosorbide Dinitrate 30 mg PO DAILY Lactulose 20 gm PO DAILY Patiromer Calcium Sorbitex [Veltassa] 16.8 gm PO SUTUTH HYDROcodone/APAP 7.5-325MG [[place] 7.5-325] 1 tab PO Q8H PRN #12 tab PRN Reason: Pain Changed Insulin Glargine [Lantus] 28 unit SQ HS #0 Discontinued hydrALAZINE HCL [Apresoline] 50 mg PO BID Gabapentin [Neurontin] 200 mg PO BID Discharge Medication List Nitroglycerin Sl Tabs [Nitrostat] 0.4 mg SUBLINGUAL Q5M PRN 11/28/13 [History] Docusate [Colace] 100 mg PO BID 06/07/15 [History] Pantoprazole [Protonix] 40 mg PO AC-BRKFST tablet. 09/23/17 [Rx] Atorvastatin [Lipitor] 20 mg PO HS@2100 01/06/18 [History] Glecaprevir/Pibrentasvir [Mavyret 100-40 mg Tablet] 3 tab PO DAILY@0800 01/06/18 [History] Magnesium Oxide [Mag-Ox] 400 mg PO DAILY@1700 01/06/18 [History] Polyethylene Glycol 3350 [Miralax] 17 gm PO DAILY PRN powd.pack 01/21/18 [Rx] Bisacodyl 10 mg RECTAL DAILY PRN 01/27/18 [History] Furosemide [Lasix] 80 mg PO BID@0600,1400 01/27/18 [History] NIFEdipine XL [Procardia XL] 30 mg PO DAILY@0800 01/27/18 [History] hydrALAZINE HCL [Apresoline] 100 mg PO TID@0600,1400,2100 01/27/18 [History] Calcium Acetate [PhosLo] 667 mg PO TID@0800,1200,1700 11/04/18 [History] Carvedilol [Coreg] 25 mg PO BID 11/04/18 [History] Ergocalciferol (Vitamin D2) [Vitamin D2] 50,000 unit PO Q14D 11/04/18 [History] INSULIN LISPRO (humaLOG) [humaLOG] 10 units SQ AC-LUNCH 11/04/18 [History] INSULIN LISPRO (humaLOG) [humaLOG] 12 units SQ AC-BRKFST 11/04/18 [History] INSULIN LISPRO (humaLOG) [humaLOG] 12 units SQ AC-SUPPER 11/04/18 [History] INSULIN LISPRO (humaLOG) [humaLOG] See Protocol SQ AC-TID 11/04/18 [History] Isosorbide Dinitrate 30 mg PO DAILY 11/04/18 [History] Lactulose 20 gm PO DAILY 11/04/18 [History] Patiromer Calcium Sorbitex [Veltassa] 16.8 gm PO SUTUTH 11/04/18 [History] guaiFENesin [guaiFENesin Oral Solution] 200 mg PO Q4H PRN 11/04/18 [History] Gabapentin [Neurontin] 100 mg PO TID@0600,1400,2100 #12 cap 11/06/18 [Rx] HYDROcodone/APAP 7.5-325MG [[place] 7.5-325] 1 tab PO Q8H PRN #12 tab 11/06/18 [Rx] Insulin Glargine [Lantus] 28 unit SQ HS #0 11/06/18 [Rx] Ipratropium-Albuterol Nebulize [Duoneb 0.5 mg-3 mg/3 ml Soln] 3 ml INHALATION RT-QID ampul.neb 11/06/18 [Rx] Levofloxacin [Levaquin] 250 mg PO DAILY #5 tab 11/06/18 [Rx] Follow up Appointment(s)/Referral(s): Joel York MD [Primary Care Provider] - 1-2 days Activity/Diet/Wound Care/Special Instructions: ECF Discharge Disposition: TRANSFER TO SNF/ECF
[2018-11-06] MEDS: ISOSORBIDE MONONITRATE ER 60 MG TAB.ER.24H PO SCH (14:03)
[2018-11-06] MEDS: CARVEDILOL 12.5 MG TAB PO SCH (14:03)
[2018-11-06 18:35] LABS: Hemoglobin A1C 7.1 % (4.0-6.0)
== END 2018-11-06 14:35 | DRG 871 ==
LOC: EC 00:10 → 3SCARD 03:31 → 4SSUR 11-05 20:11
PROVIDERS: ADMIT Internal Medicine Geriatric Medicine; ATTEND Internal Medicine Geriatric Medicine
PROC: 5A1D70Z Performance of Urinary Filtration, Intermittent, Less than 6 Hours Per Day (ICD-10-PCS; principal; 2018-11-04)
PROC: 5A1D70Z Performance of Urinary Filtration, Intermittent, Less than 6 Hours Per Day (ICD-10-PCS; 2018-11-06)
DX: A41.9 Sepsis, unspecified organism (principal); J69.0 Pneumonitis due to inhalation of food and vomit; N18.6 End stage renal disease; G93.41 Metabolic encephalopathy; I13.2 Hypertensive heart and chronic kidney disease with heart failure and with stage 5 chronic kidney disease, or end stage renal disease; I50.22 Chronic systolic (congestive) heart failure; L03.314 Cellulitis of groin; R65.20 Severe sepsis without septic shock; E11.22 Type 2 diabetes mellitus with diabetic chronic kidney disease; E11.42 Type 2 diabetes mellitus with diabetic polyneuropathy; D69.6 Thrombocytopenia, unspecified; E83.9 Disorder of mineral metabolism, unspecified; E87.5 Hyperkalemia; J44.9 Chronic obstructive pulmonary disease, unspecified; I25.5 Ischemic cardiomyopathy; D64.9 Anemia, unspecified; R09.02 Hypoxemia; I25.10 Atherosclerotic heart disease of native coronary artery without angina pectoris; F32.9 Major depressive disorder, single episode, unspecified; B18.2 Chronic viral hepatitis C; E78.5 Hyperlipidemia, unspecified; M51.36 Other intervertebral disc degeneration, lumbar region; M19.90 Unspecified osteoarthritis, unspecified site; I25.2 Old myocardial infarction; Z99.81 Dependence on supplemental oxygen; Z99.2 Dependence on renal dialysis; Z79.4 Long term (current) use of insulin; Z79.899 Other long term (current) drug therapy; Z87.39 Personal history of other diseases of the musculoskeletal system and connective tissue; Z87.440 Personal history of urinary (tract) infections; Z98.61 Coronary angioplasty status; Z86.61 Personal history of infections of the central nervous system; Z87.19 Personal history of other diseases of the digestive system; Z86.39 Personal history of other endocrine, nutritional and metabolic disease; Z98.42 Cataract extraction status, left eye; Z98.41 Cataract extraction status, right eye; Z82.49 Family history of ischemic heart disease and other diseases of the circulatory system; Z80.9 Family history of malignant neoplasm, unspecified
CPT/HCPCS: 36415; 70450; 71046; 80053; 80202; 82550; 82803; 83036; 83605; 83735; 84100; 85025; 85027; 85610; 85730; 86704; 86706; 87040; 87324; 87340; 90935; 94640; 96361; 96365; 96366; 96368; 96375; 99291